=== PATIENT | female | born 1955 | race Caucasian/White ===

== ENCOUNTER 2016-09-25 15:42 | Inpatient (IN) | payer MEDICAID ==
[2016-09-25 15:52] VITALS: BMI 23.7
[2016-09-25] MEDS ORDERED: Oxycodone/Acetaminophen 5/325 mg Tab PO STA (16:58)
[2016-09-25] MEDS ORDERED: Sodium Chloride 0.9% 1,000 ML IV ONE (16:58)
[2016-09-25] MEDS ORDERED: Oxycodone/Acetaminophen 5/325 mg Tab ONE (17:08)
[2016-09-25] MEDS ORDERED: Sodium Chloride 0.9% 1,000 ML ONE (17:09)
--- NOTE | 2016-09-25 17:21 | C.PDOC ---
History Of Present Illness 61 year old patient, with a past medical history of HIV, hypertension, cervical cancer, pancreatitis, peripheral edema, CHF, COPD, chronic kidney disease, depression, and gastritis, presents to the emergency department complaining of lower abdominal pain and flank pain for the past 4 days. Patient states she also has dysuria. She is unable to take her antibiotics because they make her vomit. Patient has a surgical history of partial colectomy, colectomy bag, nephrostomy tube, and hysterectomy. Patient denies fever, shortness of breath, chest pain, numbness, weakness, or incontinence. Patient has nephrostomy tubes due to renal damage from cervical cancer radiation. Patient visits a psychiatrist for depression and numerous medical problems. Time Seen by Provider: 09/25/16 16:45 Chief Complaint (Nursing): Female Genitourinary History Per: Patient History/Exam Limitations: no limitations Onset/Duration Of Symptoms: Days (4) Current Symptoms Are (Timing): Still Present Context: Other Severity: Moderate Pain Scale Rating Of: 4 Location Of Pain/Discomfort: Suprapubic Radiation Of Pain To:: Back Quality Of Discomfort: "Pain" Associated Symptoms: Urinary Symptoms Exacerbating Factors: None Alleviating Factors: None Last Bowel Movement: Today Recent travel outside of the [place]: No Abnormal Vaginal Bleeding: No Past Medical History Reviewed: Historical Data, Nursing Documentation, Vital Signs Vital Signs: Last Vital Signs Temp 98.2 F 09/25/16 15:53 Pulse 98 H 09/25/16 15:53 Resp 17 09/25/16 15:53 BP 135/89 09/25/16 15:53 Pulse Ox 99 09/25/16 17:36 - Medical History PMH: Anemia, Anxiety, Arthritis, Asthma, CHF, COPD, Depression (secondary to cindy HIV from her male partner), Gastritis, HIV ("private"), HTN, Hypercholesterolemia, Hyperlipidemia, Kidney Stones, Malignancy (Cervical (2000) ), Osteoporosis, Pancreatitis, Peripheral Edema, Chronic Kidney Disease (SEE COMMENTS) Surgical History: Cholecystectomy, Endoscopy - [facility] Procedures CHANGE DRAINAGE DEVICE IN KIDNEY, EXTERNAL APPROACH (07/18/16) CYSTOSCOPY NEC (08/07/14) DILATION OF LEFT COMMON ILIAC VEIN, PERCUTANEOUS APPROACH (05/04/16) DILATION OF LEFT FEMORAL VEIN, PERCUTANEOUS APPROACH (05/04/16) INSERTION OF INTRALUM DEV INTO INF VENA CAVA, PERC APPROACH (05/04/16) INSERTION OF TOTALLY IMPLANTABLE VASC ACCESS DEVIC (10/02/03) INTRAVENOUS PYELOGRAM (09/03/14) INTRODUCE OTH THROMBOLYTIC IN PERIPH VEIN, PERC (05/04/16) NEPHROSTOMY (06/26/14) PACKED CELL TRANSFUSION (11/20/14) PLAIN RADIOGRAPHY OF INFERIOR VENA CAVA USING OTHER CONTRAST (05/04/16) REMOV URETERAL DRAIN (09/26/14) REPLACE NEPHROSTOMY TUBE (10/31/14) RETROGRADE PYELOGRAM (01/15/15) URETERAL CATHETERIZATION (01/15/15) VAGINOSCOPY (05/30/14) VULVAR BIOPSY (02/07/14) Family History: States: Unknown Family Hx - Social History Hx Tobacco Use: No Hx Alcohol Use: No Hx Substance Use: No - Immunization History Hx Tetanus Toxoid Vaccination: Yes (2011) Hx Influenza Vaccination: Yes (04/2016) Hx Pneumococcal Vaccination: Yes (2011) Review Of Systems Except As Marked, All Systems Reviewed And Found Negative. Constitutional: Negative for: Fever Cardiovascular: Negative for: Chest Pain Respiratory: Negative for: Shortness of Breath Gastrointestinal: Positive for: Vomiting, Abdominal Pain Genitourinary: Positive for: Dysuria Musculoskeletal: Positive for: Back Pain (flank) Neurological: Negative for: Weakness, Numbness Physical Exam - Physical Exam Appears: Non-toxic, No Acute Distress Skin: Warm, Dry Head: Atraumatic, Normacephalic Eye(s): bilateral: Normal Inspection, PERRL, EOMI Ear(s): Bilateral: Normal Nose: Normal Oral Mucosa: Moist Throat: Normal Neck: Normal ROM, Supple Chest: Symmetrical Cardiovascular: Rhythm Regular Respiratory: Normal Breath Sounds, No Rales, No Rhonchi, No Wheezing Gastrointestinal/Abdominal: Soft, No Tenderness, No Guarding, No Rebound, Other (colectomy bag) Back: Normal Inspection, Other (nephrostomy tube) Extremity: Normal ROM Neurological/Psych: Oriented x3, Normal Speech, Normal Cognition Gait: Steady ED Course And Treatment - Laboratory Results Result Diagrams: 09/25/16 17:29 09/25/16 17:29 O2 Sat by Pulse Oximetry: 99 (RA) Pulse Ox Interpretation: Normal Progress Note: Plan: -Labs. -Percocet, IV fluids. -Reassess and disposition Medical Decision Making Medical Decision Making: Spoke with Dr. Knutson, he requests Dr. Vega for admission. Spoke with Chin Garay Will contact Dr. Vega Disposition Discussed With .: Cece Knutson Doctor Will See Patient In The: Hospital Counseled Patient/Family Regarding: Studies Performed - Disposition Disposition: HOSPITALIZED Disposition Time: 18:13 Condition: GUARDED - Clinical Impression Clinical Impression: UTI (lower urinary tract infection), Pyelonephritis, Other mechanical complication of nephrostomy catheter, sequela - Scribe Statement The provider has reviewed the documentation as recorded by the Tomeka Barahona Provider Attestation: All medical record entries made by the Tomeka were at my direction and personally dictated by me. I have reviewed the chart and agree that the record accurately reflects my personal performance of the history, physical exam, medical decision making, and the department course for this patient. I have also personally directed, reviewed, and agree with the discharge instructions and disposition. Decision To Admit - Pt Status Changed To: Hospital Disposition Of: Inpatient - Admit Certification Admit to Inpatient:: After my assessment, the patient will require hospitalization for at least two midnights. This is because of the severity of symptoms shown, intensity of services needed, and/or the medical risk in this patient being treated as an outpatient. - InPatient: Physician Admission Certification:: pyelonepritis, b/l renal obstruction, nephrostomy tubes, dysuria - . Bed Request Type: Regular Patient Diagnosis: UTI (lower urinary tract infection), Pyelonephritis, Other mechanical complication of nephrostomy catheter, sequela
[2016-09-25 17:31] LABS: BASO % 0.4 % (0.0-2.0); EOS # 0.1 K/uL (0.0-0.7); EOS % 0.9 % (0.0-4.0); HEMATOCRIT 34.1 % (34.0-47.0); LYMPH # 2.1 K/uL (1.0-4.3); LYMPH % 27.1 % (20.0-40.0); MEAN CORPUSCULAR HEMOGLOBIN 25.8 pg (27.0-31.0); MEAN CORPUSCULAR HGB CONC 31.6 g/dL (33.0-37.0); MEAN PLATELET VOLUME 9.6 fL (7.2-11.7); MONO # 0.7 K/uL (0.0-0.8); MONO % 9.5 % (0.0-10.0); RED CELL DISTRIBUTION WIDTH 17.1 % (11.5-14.5); WHITE BLOOD COUNT 7.6 K/uL (4.8-10.8)
[2016-09-25 17:41] LABS: POTASSIUM 4.4 mmol/L (3.6-5.2)
[2016-09-25 17:43] LABS: BILIRUBIN,TOTAL 0.6 mg/dL (0.2-1.3); TOTAL PROTEIN 7.9 g/dL (6.3-8.3)
[2016-09-25 17:44] LABS: CALCIUM 8.9 mg/dl (8.6-10.4); MEAN CELL VOLUME 81.6 fL (81.0-99.0)
[2016-09-25 17:51] LABS: RBC URINE 11383 /hpf (0-3); URINE BACTERIA MOD (<OCC); URINE BILIRUBIN NEGATIVE (NEGATIVE); URINE BLOOD 3+ (NEGATIVE); URINE COLOR RED (YELLOW); URINE GLUCOSE (UA) NORMAL (Normal); URINE KETONE NEGATIVE (NEGATIVE); URINE LEUKOCYTE ESTERASE 3+ Leu/uL (Negative); URINE PROTEIN 2+ mg/dL (NEGATIVE); URINE UROBILINOGEN NORMAL mg/dL (0.2-1.0); WBC CLUMPS MANY /hpf; WBC URINE 26517 /hpf (0-5)
[2016-09-25] MEDS ORDERED: Ciprofloxacin 400mg/200ml D5W 200 ML IVPB STA (18:35)
[2016-09-25] MEDS ORDERED: Ciprofloxacin 400mg/200ml D5W 200 ML IVPB ONE (18:39)
--- NOTE | 2016-09-25 19:55 | CT ---
EXAM: CT Abdomen and Pelvis Without Intravenous Contrast. CLINICAL HISTORY: 61 years old, female; Pain; Abdominal pain; Generalized; Prior surgery; Surgery date: 6+ months; Additional info: B/l neprostomy tubes TECHNIQUE: Axial computed tomography images of the abdomen and pelvis without intravenous contrast. This CT exam was performed using one or more of the following dose reduction techniques: automated exposure control, adjustment of the mA and/or kV according to patient size, and/or use of iterative reconstruction technique. Coronal and sagittal reformatted images were created and reviewed. EXAM DATE/TIME: 09/25/2016 6:11 PM COMPARISON: Prior CT abdomen and pelvis of 04/19/2015 FINDINGS: LOWER THORAX: No infiltrate seen in the lung bases. ABDOMEN: LIVER: No acute abnormality of the liver identified. GALLBLADDER AND BILE DUCTS: Cholecystectomy clips. Stable appearance of marked biliary ductal dilatation, which may be secondary to the postcholecystectomy state. Consider correlation with LFTs for laboratory evidence of biliary obstruction. PANCREAS: No CT evidence of acute pancreatitis. SPLEEN: No acute abnormality of the spleen identified. ADRENALS: No acute abnormality of the adrenal glands identified. KIDNEYS AND URETERS: Bilateral percutaneous nephrostomies in place. Overall appearance of the kidneys and collecting systems is unchanged. There is stable mild, bilateral collecting system fullness, suspicious for mild, bilateral hydroureteronephrosis. Bilateral renal scarring. No obstructing stone seen. STOMACH AND BOWEL: Sigmoid colostomy again seen in the left anterior pelvic wall. Rectal pouch again seen in the pelvis. No acute abnormality of the colon identified. No evidence of bowel obstruction. No acute abnormality of the stomach or duodenum identified. APPENDIX: Normal appendix is not seen, however, there are no significant inflammatory changes visualized in the expected location of the appendix to suggest appendicitis. Recommend clinical correlation. PELVIS: BLADDER: Bladder again appears diffusely thick walled. REPRODUCTIVE: Uterus is surgically absent. SUBPERITONEAL SPACE: Stable appearance of abnormal, crescent shaped soft tissue in the posterior pelvis, in the presacral space, most likely representing chronic post operative and post radiation scarring, given the absence of significant change control coordinator time. ABDOMEN and PELVIS: INTRAPERITONEAL SPACE: No evidence of free intraperitoneal air or fluid. BONES/JOINTS: Bony structures appear demineralized. No acute fractures or other acute bony abnormality visualized. SOFT TISSUES: No acute abnormality of the visualized soft tissues is seen. VASCULATURE: IVC filter in place. No evidence of abdominal aortic aneurysm. LYMPH NODES: No evidence of diffuse lymphadenopathy. IMPRESSION: - Overall, no significant change compared to a prior CT of 04/19/2015. No definite new, acute process identified. - Bilateral percutaneous nephrostomies in place, with stable fullness of the collecting systems bilaterally, suspicious for mild bilateral hydronephrosis. - Thickening of the bladder wall. This is a nonspecific finding, but can be seen with cystitis. - Stable soft tissue in the posterior pelvis, in the presacral space, most likely representing chronic post operative and post radiation scarring, given the absence of significant change control coordinator time. - Biliary ductal dilatation, which may be secondary to the postcholecystectomy state. - See above for remaining findings.
[2016-09-25] MEDS ORDERED: Albuterol HFA 90 mcg/actuation (8 g) INH PRN (22:20)
[2016-09-25] MEDS ORDERED: Oxycodone/Acetaminophen 5/325 mg Tab PO PRN (22:20)
[2016-09-25] MEDS ORDERED: HYDROmorphone 1 mg/ml ISec IVP PRN (22:24)
--- NOTE | 2016-09-25 22:31 | CP.PCM.HP ---
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 Patient states she has chronic microcytic anemia and Gastritis managed by her News Writer, Dr. Wong for which she takes omeprazole. She received Intravenous Iron and blood transfusions, last given 2013. she is now with recurent urine infection, had antibiotics as out pt, also an admission for DVT, thrombectomy from femoral vein, then eliquis. referred by "Dr Knutson"for admission , IV antibiotics and exchange nephrostomy tubes Present on Admission - Present on Admission Any Indicators Present on Admission: No Review of Systems - Constitutional Constitutional: Anorexia, Weight Loss, Weakness - EENT Eyes: absent: Discharge, Photophobia Ears: absent: Ear Discharge Nose/Mouth/Throat: absent: Epistaxis, Nasal Congestion - Cardiovascular Cardiovascular: absent: Acrocyanosis, Chest Pain, Diaphoresis, Palpitations, Syncope - Respiratory Respiratory: absent: Cough, Dyspnea, Hemoptysis - Gastrointestinal Gastrointestinal: Abdominal Pain, Nausea. absent: Hematemesis, Hematochezia, Vomiting - Genitourinary Genitourinary: Change in Urinary Stream. absent: Urinary Incontinence Past Patient History - Infectious Disease Hx of Infectious Diseases: None - Past Medical History & Family History Past Medical History?: Yes - Past Social History Smoking Status: Former Smoker - CARDIAC Hx Congestive Heart Failure: Yes Hx Hypercholesterolemia: Yes Hx Hypertension: Yes Hx Peripheral Edema: Yes - PULMONARY Hx Asthma: Yes Hx Chronic Obstructive Pulmonary Disease (COPD): Yes - NEUROLOGICAL Hx Neurological Disorder: Yes (SEE COMMENT) Hx Syncope: Yes (10 yrs unknown reason) Other/Comment: HEADACHES - HEENT Hx HEENT Problems: Yes (SEE COMMENT) Hx Cataracts: Yes (BILATERAL) - RENAL Hx Chronic Kidney Disease: Yes (SEE COMMENTS) Hx Kidney Stones: Yes - ENDOCRINE/METABOLIC Hx Endocrine Disorders: No - HEMATOLOGICAL/ONCOLOGICAL Hx Anemia: Yes Hx Human Immunodeficiency Virus (HIV): Yes ("private") - INTEGUMENTARY Hx Dermatological Problems: Yes (SEE COMMENT) Other/Comment: Colostomy, Nephrostomy - MUSCULOSKELETAL/RHEUMATOLOGICAL Hx Arthritis: Yes Hx Osteoporosis: Yes - GASTROINTESTINAL Hx Gastritis: Yes Hx Pancreatitis: Yes - GENITOURINARY/GYNECOLOGICAL Hx Genitourinary Disorders: Yes Hx Cervical Cancer: Yes Hx Hematuria: Yes Hx Urinary Tract Infection: Yes Other/Comment: ureteral stent in both kidneys - changed Q3 months. bilateral nephrostomy tubes(2013) last changed 05/27 - PSYCHIATRIC Hx Anxiety: Yes Hx Depression: Yes (secondary to cindy HIV from her male partner) Hx Substance Use: No - SURGICAL HISTORY Hx Cholecystectomy: Yes - ANESTHESIA Hx Anesthesia: Yes Hx Anesthesia Reactions: Yes (Hard to wake up even with sedation) Hx Malignant Hyperthermia: Yes (prev surgery, rt for uterine ca) Meds Allergies/Adverse Reactions: Allergies Allergy/AdvReac Type Severity Reaction Status Date / Time sulfamethoxazole Allergy Intermediate ITCHING Verified 09/25/16 15:52 [From Bactrim] aloe vera Allergy ITCHING Verified 09/25/16 15:52 Sulfa (Sulfonamide Allergy ITCHING Verified 09/25/16 15:52 Antibiotics) Physical Exam - Constitutional Appears: Non-toxic - Head Exam Head Exam: ATRAUMATIC - Eye Exam Eye Exam: EOMI - ENT Exam ENT Exam: Mucous Membranes Moist - Neck Exam Neck exam: Negative for: Lymphadenopathy, Thyromegaly - Respiratory Exam Respiratory Exam: Clear to Auscultation Bilateral. absent: Rales - Cardiovascular Exam Cardiovascular Exam: REGULAR RHYTHM - GI/Abdominal Exam GI & Abdominal Exam: Normal Bowel Sounds. absent: Organomegaly - Rectal Exam Rectal Exam: Deferred - Extremities Exam Extremities exam: Positive for: normal inspection. Negative for: calf tenderness - Neurological Exam Neurological exam: Alert, Oriented x3 - Psychiatric Exam Psychiatric exam: Normal Mood - Skin Skin Exam: Dry Results - Vital Signs Recent Vital Signs: Last Vital Signs Temp 98.1 F 09/25/16 21:46 Pulse 78 09/25/16 21:46 Resp 16 09/25/16 21:46 BP 149/79 09/25/16 21:46 Pulse Ox 99 09/25/16 21:46 - Labs Result Diagrams: 09/26/16 07:36 09/26/16 07:36 Assessment & Plan (1) Other mechanical complication of nephrostomy catheter, sequela Status: Acute (2) Hydronephrosis of left kidney Status: Chronic (3) Hydronephrosis of right kidney Status: Chronic (4) Intractable pain Status: Acute (5) Pyelonephritis, acute Status: Acute (6) AIDS Status: Chronic (7) History of depression Status: Chronic (8) History of uterine cancer Status: Chronic (9) Renal insufficiency Status: Chronic Decision To Admit - Pt Status Changed To: Hospital Disposition Of: Inpatient - Admit Certification Admit to Inpatient:: After my assessment, the patient will require hospitalization for at least two midnights. This is because of the severity of symptoms shown, intensity of services needed, and/or the medical risk in this patient being treated as an outpatient. - InPatient: Physician Admission Certification:: yes - . Bed Request Type: Regular
[2016-09-25] MEDS: Simethicone 80 mg Chewtab PO SCH (22:59)
--- NOTE | 2016-09-25 23:58 | CP.PCM.CON ---
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 Patient was recently hospitalized [facility] from 07/18/16 to 07/24/16 with complicated UTI and had bilateral nephrostomy tubes changed by Dr. Knutson on 07/18. Patient also has history of DVT, thrombectomy from femoral vein and presently on eliquis. Patient now comes in complaining off bilateral flank pains,back pain and turbid foul-smelling urine. Patient came to the ER and was advised admission as per -by urologist for change off nephrostomy tubes. Patient also has chronic microcytic anemia and gastritis. Infectious disease consultation requested by ER physician for IV antibiotics for her complicated UTI. Patient has history off MRSA, Enterococcus faecalis and even pseudomonas aeruginosa from nephrostomy tubes sensitive to Cipro, Merrem and imipenem. Patient is presently on TIVICAY. Norvir, Prezista HAART therapy and is very compliant with her medications. Her last viral load was undetectable and his CD4 count WAS MORE THAN 500. PMHx: see HPI. Nephrostomy and colostomy were done due to damages from chemoradiation for cervical CA. Pt visited PMD for routine HIV follow up on 2015 and was told viral count undetectable. CD4 145 on 08/19/14 per record. PSHx: Cervical CA resection 2000, colostomy bag 2009. FMHx: both parents from [place]. Sister and brother had PA. Social: former smoker, 5 cigarettes to 1 pack a day for 10 years, stopped 2011. Denied ETOH or drugs use. Lives alone, unemployeed. PMD: Dr. Rojas Nichole Review of Systems - Constitutional Constitutional: Fatigue. absent: Chills, Fever - EENT Eyes: absent: Change in Vision, Floaters Nose/Mouth/Throat: absent: Mouth Lesions, Odynophagia - Cardiovascular Cardiovascular: absent: Chest Pain, Dyspnea - Respiratory Respiratory: absent: Cough, Dyspnea, Hemoptysis - Gastrointestinal Gastrointestinal: Abdominal Pain (bilateral flank pains.). absent: Nausea, Vomiting - Genitourinary Genitourinary: Dysuria, Pyuria, Hx /Renal Surgery - Neurological Neurological: absent: Headaches - Hematologic/Lymphatic Hematologic: As Per HPI. absent: Easy Bleeding, Easy Bruising Past Patient History - Infectious Disease Hx of Infectious Diseases: None - Past Medical History & Family History Past Medical History?: Yes - Past Social History Smoking Status: Former Smoker - CARDIAC Hx Congestive Heart Failure: Yes Hx Hypercholesterolemia: Yes Hx Hypertension: Yes Hx Peripheral Edema: Yes - PULMONARY Hx Asthma: Yes Hx Chronic Obstructive Pulmonary Disease (COPD): Yes - NEUROLOGICAL Hx Neurological Disorder: Yes (SEE COMMENT) Hx Syncope: Yes (10 yrs unknown reason) Other/Comment: HEADACHES - HEENT Hx HEENT Problems: Yes (SEE COMMENT) Hx Cataracts: Yes (BILATERAL) - RENAL Hx Chronic Kidney Disease: Yes (SEE COMMENTS) Hx Kidney Stones: Yes - ENDOCRINE/METABOLIC Hx Endocrine Disorders: No - HEMATOLOGICAL/ONCOLOGICAL Hx Anemia: Yes Hx Human Immunodeficiency Virus (HIV): Yes ("private") - INTEGUMENTARY Hx Dermatological Problems: Yes (SEE COMMENT) Other/Comment: Colostomy, Nephrostomy - MUSCULOSKELETAL/RHEUMATOLOGICAL Hx Arthritis: Yes Hx Osteoporosis: Yes - GASTROINTESTINAL Hx Gastritis: Yes Hx Pancreatitis: Yes - GENITOURINARY/GYNECOLOGICAL Hx Genitourinary Disorders: Yes Hx Cervical Cancer: Yes Hx Hematuria: Yes Hx Urinary Tract Infection: Yes Other/Comment: ureteral stent in both kidneys - changed Q3 months. bilateral nephrostomy tubes(2013) last changed 05/27 - PSYCHIATRIC Hx Anxiety: Yes Hx Depression: Yes (secondary to cindy HIV from her male partner) Hx Substance Use: No - SURGICAL HISTORY Hx Cholecystectomy: Yes - ANESTHESIA Hx Anesthesia: Yes Hx Anesthesia Reactions: Yes (Hard to wake up even with sedation) Hx Malignant Hyperthermia: Yes (prev surgery, rt for uterine ca) Meds Allergies/Adverse Reactions: Allergies Allergy/AdvReac Type Severity Reaction Status Date / Time sulfamethoxazole Allergy Intermediate ITCHING Verified 09/25/16 15:52 [From Bactrim] aloe vera Allergy ITCHING Verified 09/25/16 15:52 Sulfa (Sulfonamide Allergy ITCHING Verified 09/25/16 15:52 Antibiotics) - Medications Medications: Current Medications Acetaminophen (Tylenol 325mg Tab) 650 mg PO Q6 PRN PRN Reason: Fever >100.4 F Albuterol (Ventolin Hfa 90 Mcg/Actuation (8 G)) 2 puff INH Q4 PRN PRN Reason: Shortness of Breath Apixaban (Eliquis) 5 mg PO BID [facility] Last Admin: 09/25/16 22:59 Dose: 5 mg Darunavir (Prezista) 800 mg PO DAILY [facility] Docusate Sodium (Colace) 100 mg PO BID [facility] Dolutegravir Sodium (Tivicay) 50 mg PO DAILY [facility] Enoxaparin Sodium (Lovenox) 40 mg SC DAILY [facility] Famciclovir (Famvir) 500 mg PO DAILY [facility] Home Med (Fexofenadine Hcl [Fexofenadine Hcl]) 60 mg PO DAILY [facility] Hydromorphone HCl (Dilaudid) 1 mg IVP Q6H PRN PRN Reason: Pain, severe (8-10) Ciprofloxacin (Cipro 200mg/100ml D5w) 100 mls @ 67 mls/hr IVPB Q12H [facility] Sodium Chloride (Sodium Chloride 0.9%) 1,000 mls @ 100 mls/hr IV .Q10H [facility] Losartan Potassium (Cozaar) 100 mg PO DAILY [facility] Metoprolol Tartrate (Lopressor) 100 mg PO HS [facility] Montelukast Sodium (Singulair) 10 mg PO DAILY [facility] Ondansetron HCl (Zofran Inj) 4 mg IVP Q6 PRN PRN Reason: Nausea/Vomiting Oxycodone/Acetaminophen (Percocet 5/325 Mg Tab) 1 tab PO Q4H PRN PRN Reason: Pain, moderate (4-7) Stop: 09/28/16 22:21 Pantoprazole Sodium (Protonix Ec Tab) 40 mg PO DAILY [facility] Ritonavir (Norvir) 100 mg PO DAILY [facility] Simethicone (Mylicon Chew Tab) 80 mg PO BID [facility] Last Admin: 09/25/16 22:59 Dose: 80 mg Temazepam (Restoril) 15 mg PO HS [facility] Last Admin: 09/25/16 23:12 Dose: 15 mg Physical Exam - Constitutional Appears: No Acute Distress - Head Exam Head Exam: NORMAL INSPECTION - Eye Exam Eye Exam: PERRL - ENT Exam ENT Exam: Normal Oropharynx - Neck Exam Neck exam: Positive for: Normal Inspection - Respiratory Exam Respiratory Exam: NORMAL BREATHING PATTERN - Cardiovascular Exam Cardiovascular Exam: REGULAR RHYTHM, +S1, +S2 - GI/Abdominal Exam GI & Abdominal Exam: Hypoactive Bowel Sounds, Soft, Tenderness (bilateral flanks ). absent: Guarding, Mass Additional comments: BILATERAL NEPHROSTOMY TUBES IN PLACE. - Extremities Exam Extremities exam: Positive for: pedal pulses present. Negative for: calf tenderness, pedal edema - Back Exam Back exam: CVA tenderness (L), CVA tenderness (R) - Neurological Exam Neurological exam: Alert, CN II-XII Intact, Motor Sensory Deficit, Oriented x3, Reflexes Normal - Psychiatric Exam Psychiatric exam: Normal Mood - Skin Skin Exam: Normal Color, Warm Results - Vital Signs Recent Vital Signs: Last Vital Signs Temp 98.1 F 09/25/16 21:46 Pulse 78 09/25/16 21:46 Resp 16 09/25/16 21:46 BP 149/79 09/25/16 21:46 Pulse Ox 99 09/25/16 21:46 - Labs Result Diagrams: 09/26/16 07:36 09/26/16 07:36 - Imaging and Cardiology CT scan - abdomen Status: Pending Assessment & Plan (1) Abdominal pain Assessment and Plan: CT of the abdomen and pelvis without by mouth or IV contrast performed. Results are pending. We will follow reports. Status: Acute (2) Complicated urinary tract infection Assessment and Plan: pancultures UA urine culture. Patient for CT of the abdomen and pelvis without by mouth or IV contrast- pending report. Start Cipro 400 mg loading dose 09/25/16 Follow-up BY Cipro 200 mg IV piggybag every 12 hourly. IV stat dose off Tygacil 100 mg IV piggyback 1 dose. 09/25/16 Case discussed with the ER physician. EVALUATION IN PROGRESS. Status: Acute (3) Creatinine elevation Assessment and Plan: bun 25/CREATININE 1.5. IV FLUIDS PER ATTENDING. REPEAT BMP IN AM. Status: Acute (4) Cancer of cervix Status: Chronic (5) Colostomy in place Assessment and Plan: LEFT COLOSTOMY IN PLACE AND WORKING. Status: Chronic (6) HIV (human immunodeficiency virus infection) Assessment and Plan: CONTINUE HAART THERAPY BEFORE. Status: Chronic (7) Deep venous thrombosis of lower extremity Assessment and Plan: hx of ivc filter. Also patient on ELAQUIS PER ASSISTANT PRODUCTION EDITOR. Status: Acute
[2016-09-26] MEDS: Sodium Chloride 0.9% 1,000 ML IV SCH ×3 (03:45→17:36)
[2016-09-26] MEDS: Ciprofloxacin 200mg/100ml D5W 100 ML IVPB SCH ×2 (05:37→17:35)
[2016-09-26 08:06] LABS: POTASSIUM 4.7 mmol/L (3.6-5.2)
[2016-09-26 08:09] LABS: BILIRUBIN,DIRECT 0.3 mg/dL (0.0-0.4); BILIRUBIN,TOTAL 0.3 mg/dL (0.2-1.3); CALCIUM 8.2 mg/dl (8.6-10.4); TOTAL PROTEIN 6.6 g/dL (6.3-8.3)
[2016-09-26 08:20] LABS: BASO % 0.5 % (0.0-2.0); EOS # 0.1 K/uL (0.0-0.7); EOS % 1.8 % (0.0-4.0); HEMATOCRIT 32.2 % (34.0-47.0); LYMPH # 1.8 K/uL (1.0-4.3); LYMPH % 31.6 % (20.0-40.0); MEAN CELL VOLUME 82.9 fL (81.0-99.0); MEAN CORPUSCULAR HEMOGLOBIN 26.6 pg (27.0-31.0); MEAN CORPUSCULAR HGB CONC 32.1 g/dL (33.0-37.0); MEAN PLATELET VOLUME 9.9 fL (7.2-11.7); MONO # 0.6 K/uL (0.0-0.8); MONO % 10.9 % (0.0-10.0); NRBC % 0.1 % (0.0-2.0); RED CELL DISTRIBUTION WIDTH 17.3 % (11.5-14.5); WHITE BLOOD COUNT 5.8 K/uL (4.8-10.8)
[2016-09-26] MEDS: Pantoprazole 40 mg EC Tab PO SCH (09:45)
[2016-09-26] MEDS: Simethicone 80 mg Chewtab PO SCH ×2 (09:46→17:40)
[2016-09-26] MEDS ORDERED: Enoxaparin 40 mg Syringe SC SCH (10:00)
--- NOTE | 2016-09-26 12:11 | CP.PCM.PN ---
Subjective - Date & Time of Evaluation Date of Evaluation: 09/26/16 Time of Evaluation: 12:00 - Subjective Subjective: Seen by ID, on IV unlikely anti- biotic, stable vitals considering change the nephrostomy tubes Objective - Vital Signs/Intake and Output Vital Signs (last 24 hours): Temp Pulse Resp BP Pulse Ox 97.9 F 79 20 116/71 97 09/26/16 09:12 09/26/16 09:12 09/26/16 09:12 09/26/16 09:12 09/26/16 09:12 Intake and Output: 09/26/16 09/26/16 06:59 18:59 Intake Total 800 Output Total 200 Balance 600 - Medications Medications: Current Medications Acetaminophen (Tylenol 325mg Tab) 650 mg PO Q6 PRN PRN Reason: Fever >100.4 F Albuterol (Ventolin Hfa 90 Mcg/Actuation (8 G)) 2 puff INH Q4 PRN PRN Reason: Shortness of Breath Apixaban (Eliquis) 5 mg PO BID [facility] Last Admin: 09/26/16 09:45 Dose: 5 mg Darunavir (Prezista) 800 mg PO DAILY [facility] Last Admin: 09/26/16 11:27 Dose: 800 mg Docusate Sodium (Colace) 100 mg PO BID [facility] Last Admin: 09/26/16 09:49 Dose: Not Given Dolutegravir Sodium (Tivicay) 50 mg PO DAILY [facility] Last Admin: 09/26/16 09:45 Dose: 50 mg Famciclovir (Famvir) 500 mg PO DAILY [facility] Last Admin: 09/26/16 09:45 Dose: 500 mg Hydromorphone HCl (Dilaudid) 1 mg IVP Q6H PRN PRN Reason: Pain, severe (8-10) Ciprofloxacin (Cipro 200mg/100ml D5w) 100 mls @ 67 mls/hr IVPB Q12H [facility] Last Admin: 09/26/16 05:37 Dose: 67 mls/hr Sodium Chloride (Sodium Chloride 0.9%) 1,000 mls @ 100 mls/hr IV .Q10H [facility] Last Admin: 09/26/16 03:45 Dose: 100 mls/hr Loratadine (Claritin) 10 mg PO DAILY [facility] Last Admin: 09/26/16 09:45 Dose: 10 mg Losartan Potassium (Cozaar) 100 mg PO DAILY [facility] Last Admin: 09/26/16 09:45 Dose: 100 mg Metoprolol Tartrate (Lopressor) 100 mg PO [facility] Montelukast Sodium (Singulair) 10 mg PO [facility] Ondansetron HCl (Zofran Inj) 4 mg IVP Q6 PRN PRN Reason: Nausea/Vomiting Oxycodone/Acetaminophen (Percocet 5/325 Mg Tab) 1 tab PO Q4H PRN PRN Reason: Pain, moderate (4-7) Stop: 09/28/16 22:21 Pantoprazole Sodium (Protonix Ec Tab) 40 mg PO DAILY [facility] Last Admin: 09/26/16 09:45 Dose: 40 mg Ritonavir (Norvir) 100 mg PO DAILY [facility] Last Admin: 09/26/16 09:45 Dose: 100 mg Simethicone (Mylicon Chew Tab) 80 mg PO BID [facility] Last Admin: 09/26/16 09:46 Dose: 80 mg Temazepam (Restoril) 15 mg PO [facility] Last Admin: 09/25/16 23:12 Dose: 15 mg - Labs Labs: 09/26/16 07:36 09/26/16 07:36 - Constitutional Appears: Non-toxic - Head Exam Head Exam: ATRAUMATIC - Eye Exam Eye Exam: EOMI - ENT Exam ENT Exam: Mucous Membranes Moist - Neck Exam Neck Exam: absent: Lymphadenopathy, Thyromegaly - Respiratory Exam Respiratory Exam: Clear to Ausculation Bilateral. absent: Rhonchi - Cardiovascular Exam Cardiovascular Exam: REGULAR RHYTHM - GI/Abdominal Exam GI & Abdominal Exam: Tenderness, Normal Bowel Sounds. absent: Organomegaly Additional comments: Bilateral nephrostomy tubes - Rectal Exam Rectal Exam: Deferred - Extremities Exam Extremities Exam: Normal Capillary Refill. absent: Calf Tenderness - Neurological Exam Neurological Exam: Alert, Oriented x3 - Psychiatric Exam Psychiatric exam: Depressed, Normal Mood - Skin Skin Exam: Dry Assessment and Plan (1) Other mechanical complication of nephrostomy catheter, sequela Status: Acute (2) Hydronephrosis of left kidney Status: Chronic (3) Hydronephrosis of right kidney Status: Chronic (4) Intractable pain Status: Acute (5) Pyelonephritis, acute Status: Acute (6) AIDS Status: Chronic (7) History of depression Status: Chronic (8) History of uterine cancer Status: Chronic (9) Renal insufficiency Status: Chronic
--- NOTE | 2016-09-26 20:11 | CP.PCM.PN ---
Subjective - Date & Time of Evaluation Date of Evaluation: 09/26/16 Time of Evaluation: 20:41 - Subjective Subjective: CHIEF COMPLAINTS TODAY : afebrile, Complains of bilateral flank and lower abdominal pains. c/o dysuria and foul-smelling urine. ROS. HEENT : N. Resp : No SOB wheezing, cough Cardio : No CP, PND orthopnea GI : +VE ABDOMINAL PAIN,AND FLANK PAIN. NO NAUSEA OR VOMITING. [employer]ER : No headache , focal deficit. Musculoskel : N Ext. : Pedal pulses intact, no edema or calf pain Derm : N Psych : N. PE. Pt. is alert awake in no distress. V.S As noted in the chart Head ,ear nose,throat and eyes : Normal. Neck : Supple with normal carotids. Lungs: Clear air entry. Heart : S1 & S2 normal . . No murmur. S4 + Abd : Soft ,MILD TENDERNESS BOTH FLANKS AND LOWER ABDOMEN, with normal bowel sounds. Neuro : Moves all ext. with no localized deficit. Ext : No edema with intact pulses. Neg. calf tenderness Derm : No rashes or decubitus ulcer. Radiology/Labs . LABS REVIEWED. CT OF THE ABDOMEN AND PELVIS WITHOUT BY MOUTH OR iv CONTRAST NO GROSS CHANGES, BILATERAL HYDRONEPHROSIS, THICKENING OF THE BLADDER WALL SUSPICIOUS FOR CYSTITIS. urine cultures +ve gram-negative jaret/gram-negative rods #2 pending Asssessment : -ABDOMINAL PAIN -COMPLICATED UTI/PYELONEPHRITIS -BILATERAL HYDRONEPHROSIS S/P BILATERAL NT IN PLACE. -SEE OF THE CERVIX S/P ILEOSTOMY.. -ACQUIRED IMMUNE DEFICIENCY SYNDROME.. - PRERENAL AZOTEMIA. -HX OF DVT/S/P IVC FILTER/AND ELAQUIS. - Plan : -on Cipro 400 mg loading dose 09/25/16 Follow-up BY Cipro 200 mg IV piggybag every 12 hourly. -IV stat dose off Tygacil 100 mg IV piggyback 1 dose. 09/25/16 follow-up with Tygacil 50 mg every 12 hourly. -Repeat UA, urine culture clean catch today. - evaluation pending. Patient states stents are changed every 3 months, last change was in July 2016. -IV fluids as per Dr. Vega PMD/medical authorization specialist.- -Follow up renal functions closely. Objective - Vital Signs/Intake and Output Vital Signs (last 24 hours): Temp Pulse Resp BP Pulse Ox 98.0 F 81 20 125/74 97 09/26/16 16:00 09/26/16 16:00 09/26/16 16:00 09/26/16 16:00 09/26/16 16:00 Intake and Output: 09/26/16 09/27/16 18:59 06:59 Intake Total 1200 Output Total 1000 Balance 200 - Medications Medications: Current Medications Acetaminophen (Tylenol 325mg Tab) 650 mg PO Q6 PRN PRN Reason: Fever >100.4 F Albuterol (Ventolin Hfa 90 Mcg/Actuation (8 G)) 2 puff INH Q4 PRN PRN Reason: Shortness of Breath Apixaban (Eliquis) 5 mg PO BID [facility] Last Admin: 09/26/16 17:35 Dose: 5 mg Darunavir (Prezista) 800 mg PO DAILY [facility] Last Admin: 09/26/16 11:27 Dose: 800 mg Docusate Sodium (Colace) 100 mg PO BID [facility] Last Admin: 09/26/16 17:37 Dose: Not Given Dolutegravir Sodium (Tivicay) 50 mg PO DAILY [facility] Last Admin: 09/26/16 09:45 Dose: 50 mg Famciclovir (Famvir) 500 mg PO DAILY [facility] Last Admin: 09/26/16 09:45 Dose: 500 mg Hydromorphone HCl (Dilaudid) 1 mg IVP Q6H PRN PRN Reason: Pain, severe (8-10) Ciprofloxacin (Cipro 200mg/100ml D5w) 100 mls @ 67 mls/hr IVPB Q12H [facility] Last Admin: 09/26/16 17:35 Dose: 67 mls/hr Sodium Chloride (Sodium Chloride 0.9%) 1,000 mls @ 100 mls/hr IV .Q10H [facility] Last Admin: 09/26/16 17:36 Dose: Not Given Loratadine (Claritin) 10 mg PO DAILY [facility] Last Admin: 09/26/16 09:45 Dose: 10 mg Losartan Potassium (Cozaar) 100 mg PO DAILY [facility] Last Admin: 09/26/16 09:45 Dose: 100 mg Metoprolol Tartrate (Lopressor) 100 mg PO [facility] Montelukast Sodium (Singulair) 10 mg PO [facility] Ondansetron HCl (Zofran Inj) 4 mg IVP Q6 PRN PRN Reason: Nausea/Vomiting Last Admin: 09/26/16 17:40 Dose: 4 mg Oxycodone/Acetaminophen (Percocet 5/325 Mg Tab) 1 tab PO Q4H PRN PRN Reason: Pain, moderate (4-7) Stop: 09/28/16 22:21 Pantoprazole Sodium (Protonix Ec Tab) 40 mg PO DAILY [facility] Last Admin: 09/26/16 09:45 Dose: 40 mg Ritonavir (Norvir) 100 mg PO DAILY [facility] Last Admin: 09/26/16 09:45 Dose: 100 mg Simethicone (Mylicon Chew Tab) 80 mg PO BID [facility] Last Admin: 09/26/16 17:40 Dose: 80 mg Temazepam (Restoril) 15 mg PO [facility] Last Admin: 09/25/16 23:12 Dose: 15 mg - Labs Labs: 09/26/16 07:36 09/26/16 07:36 Assessment and Plan (1) Abdominal pain Status: Acute (2) Complicated urinary tract infection Status: Acute (3) Creatinine elevation Status: Acute (4) Cancer of cervix Status: Chronic (5) Colostomy in place Status: Chronic (6) HIV (human immunodeficiency virus infection) Status: Chronic (7) Deep venous thrombosis of lower extremity Status: Acute
[2016-09-26] MEDS: Tigecycline 50 MG in Dextrose 5% In Water 100 ML IVPB SCH (21:23)
[2016-09-26 22:42] LABS: RBC URINE 3277 /hpf (0-3); URINE BACTERIA MOD (<OCC); URINE BILIRUBIN NEGATIVE (NEGATIVE); URINE BLOOD 3+ (NEGATIVE); URINE COLOR Red (YELLOW); URINE GLUCOSE (UA) NORMAL (Normal); URINE KETONE NEGATIVE (NEGATIVE); URINE LEUKOCYTE ESTERASE 3+ Leu/uL (Negative); URINE PROTEIN 2+ mg/dL (NEGATIVE); URINE UROBILINOGEN NORMAL mg/dL (0.2-1.0); WBC CLUMPS MANY /hpf; WBC URINE 1378 /hpf (0-5)
[2016-09-27] MEDS: Sodium Chloride 0.9% 1,000 ML IV SCH ×4 (04:30→14:10)
[2016-09-27] MEDS: Ciprofloxacin 200mg/100ml D5W 100 ML IVPB SCH ×2 (06:27→17:44)
[2016-09-27] MEDS: Pantoprazole 40 mg EC Tab PO SCH (09:58)
[2016-09-27] MEDS: Simethicone 80 mg Chewtab PO SCH ×2 (09:58→17:43)
[2016-09-27] MEDS: Tigecycline 50 MG in Dextrose 5% In Water 100 ML IVPB SCH ×2 (10:18→21:10)
--- NOTE | 2016-09-27 13:56 | CP.PCM.PN ---
Subjective - Date & Time of Evaluation Date of Evaluation: 09/27/16 Time of Evaluation: 13:55 - Subjective Subjective: CHIEF COMPLAINTS TODAY : afebrile, Complains of bilateral flank and lower abdominal pains. c/o NAUSEA BUT NO VOMITING. SEEN BY - FOR CYSTOSCOPY IN A.M. PER PATIENT. ROS. HEENT : N. Resp : No SOB wheezing, cough Cardio : No CP, PND orthopnea GI : +VE ABDOMINAL PAIN,AND FLANK PAIN. NO NAUSEA OR VOMITING. KAI WHAKARURUHAU : No headache , focal deficit. Musculoskel : N Ext. : Pedal pulses intact, no edema or calf pain Derm : N Psych : N. PE. Pt. is alert awake in no distress. V.S As noted in the chart Head ,ear nose,throat and eyes : Normal. Neck : Supple with normal carotids. Lungs: Clear air entry. Heart : S1 & S2 normal . . No murmur. S4 + Abd : Soft ,MILD TENDERNESS BOTH FLANKS AND LOWER ABDOMEN, with normal bowel sounds. Neuro : Moves all ext. with no localized deficit. Ext : No edema with intact pulses. Neg. calf tenderness Derm : No rashes or decubitus ulcer. Radiology/Labs . LABS REVIEWED. CT OF THE ABDOMEN AND PELVIS WITHOUT BY MOUTH OR iv CONTRAST NO GROSS CHANGES, BILATERAL HYDRONEPHROSIS, THICKENING OF THE BLADDER WALL SUSPICIOUS FOR CYSTITIS. urine cultures +ve gram-negative jaret/gram-negative rods #2 pending Asssessment : -ABDOMINAL PAIN -COMPLICATED UTI/PYELONEPHRITIS -BILATERAL HYDRONEPHROSIS S/P BILATERAL NT IN PLACE. -SEE OF THE CERVIX S/P ILEOSTOMY.. -ACQUIRED IMMUNE DEFICIENCY SYNDROME.. - PRERENAL AZOTEMIA. -HX OF DVT/S/P IVC FILTER/AND ELAQUIS. - Plan : -on Cipro 400 mg loading dose 09/25/16 Follow-up BY Cipro 200 mg IV piggybag every 12 hourly. -IV stat dose off Tygacil 100 mg IV piggyback 1 dose. 09/25/16 follow-up with Tygacil 50 mg every 12 hourly. -Repeat UA, urine culture -repeat [id number] 09/26 -FOLLOW-UP CULTURES TO ADJUST ANTIBIOTICS - -FOR CYSTOSCOPY IN A.M. -ZOFRAN 4 MG WHEN NECESSARY EVERY 6 HOURLY FOR NAUSEA PER pmd.- Objective - Vital Signs/Intake and Output Vital Signs (last 24 hours): Temp Pulse Resp BP Pulse Ox 98 F 70 20 156/82 H 97 09/27/16 07:00 09/27/16 07:00 09/27/16 07:00 09/27/16 07:00 09/27/16 07:00 Intake and Output: 09/27/16 09/27/16 06:59 18:59 Intake Total 1000 Output Total 500 Balance 500 - Medications Medications: Current Medications Acetaminophen (Tylenol 325mg Tab) 650 mg PO Q6 PRN PRN Reason: Fever >100.4 F Albuterol (Ventolin Hfa 90 Mcg/Actuation (8 G)) 2 puff INH Q4 PRN PRN Reason: Shortness of Breath Apixaban (Eliquis) 5 mg PO BID [facility] Last Admin: 09/27/16 09:58 Dose: 5 mg Darunavir (Prezista) 800 mg PO DAILY [facility] Last Admin: 09/27/16 09:58 Dose: 800 mg Docusate Sodium (Colace) 100 mg PO BID [facility] Last Admin: 09/27/16 09:58 Dose: 100 mg Dolutegravir Sodium (Tivicay) 50 mg PO DAILY [facility] Last Admin: 09/27/16 09:58 Dose: 50 mg Famciclovir (Famvir) 500 mg PO DAILY [facility] Last Admin: 09/27/16 09:58 Dose: 500 mg Hydromorphone HCl (Dilaudid) 1 mg IVP Q6H PRN PRN Reason: Pain, severe (8-10) Ciprofloxacin (Cipro 200mg/100ml D5w) 100 mls @ 67 mls/hr IVPB Q12H [facility] Last Admin: 09/27/16 06:27 Dose: 67 mls/hr Sodium Chloride (Sodium Chloride 0.9%) 1,000 mls @ 100 mls/hr IV .Q10H [facility] Last Admin: 09/27/16 07:43 Dose: Not Given Tigecycline 50 mg/ Dextrose 100 mls @ 100 mls/hr IVPB Q12H [facility] Last Admin: 09/27/16 10:18 Dose: 100 mls/hr Loratadine (Claritin) 10 mg PO DAILY [facility] Last Admin: 09/27/16 09:58 Dose: 10 mg Losartan Potassium (Cozaar) 100 mg PO DAILY [facility] Last Admin: 09/27/16 09:58 Dose: 100 mg Metoprolol Tartrate (Lopressor) 100 mg PO HS [facility] Last Admin: 09/26/16 21:23 Dose: 100 mg Montelukast Sodium (Singulair) 10 mg PO HS [facility] Last Admin: 09/26/16 21:23 Dose: 10 mg Ondansetron HCl (Zofran Inj) 4 mg IVP Q6 PRN PRN Reason: Nausea/Vomiting Last Admin: 09/27/16 09:59 Dose: 4 mg Oxycodone/Acetaminophen (Percocet 5/325 Mg Tab) 1 tab PO Q4H PRN PRN Reason: Pain, moderate (4-7) Stop: 09/28/16 22:21 Pantoprazole Sodium (Protonix Ec Tab) 40 mg PO DAILY [facility] Last Admin: 09/27/16 09:58 Dose: 40 mg Ritonavir (Norvir) 100 mg PO DAILY [facility] Last Admin: 09/27/16 09:58 Dose: 100 mg Simethicone (Mylicon Chew Tab) 80 mg PO BID [facility] Last Admin: 09/27/16 09:58 Dose: 80 mg Temazepam (Restoril) 15 mg PO [facility] Last Admin: 09/26/16 21:24 Dose: Not Given - Labs Labs: 09/26/16 07:36 09/26/16 07:36 Assessment and Plan (1) Abdominal pain Status: Acute (2) Complicated urinary tract infection Status: Acute (3) Creatinine elevation Status: Acute (4) Cancer of cervix Status: Chronic (5) Colostomy in place Status: Chronic (6) HIV (human immunodeficiency virus infection) Status: Chronic (7) Deep venous thrombosis of lower extremity Status: Acute
--- NOTE | 2016-09-27 17:04 | CP.PCM.PN ---
Subjective - Date & Time of Evaluation Date of Evaluation: 09/27/16 Time of Evaluation: 13:00 - Subjective Subjective: on treatment for sepsis, f/u with ID observe BP, for cystoscopy Objective - Vital Signs/Intake and Output Vital Signs (last 24 hours): Temp Pulse Resp BP Pulse Ox 98.2 F 71 18 154/88 H 100 09/27/16 15:16 09/27/16 15:16 09/27/16 15:16 09/27/16 15:16 09/27/16 15:16 Intake and Output: 09/27/16 09/27/16 06:59 18:59 Intake Total 1000 Output Total 500 Balance 500 - Medications Medications: Current Medications Acetaminophen (Tylenol 325mg Tab) 650 mg PO Q6 PRN PRN Reason: Fever >100.4 F Albuterol (Ventolin Hfa 90 Mcg/Actuation (8 G)) 2 puff INH Q4 PRN PRN Reason: Shortness of Breath Apixaban (Eliquis) 5 mg PO BID [facility] Last Admin: 09/27/16 09:58 Dose: 5 mg Darunavir (Prezista) 800 mg PO DAILY [facility] Last Admin: 09/27/16 09:58 Dose: 800 mg Docusate Sodium (Colace) 100 mg PO BID [facility] Last Admin: 09/27/16 09:58 Dose: 100 mg Dolutegravir Sodium (Tivicay) 50 mg PO DAILY [facility] Last Admin: 09/27/16 09:58 Dose: 50 mg Famciclovir (Famvir) 500 mg PO DAILY [facility] Last Admin: 09/27/16 09:58 Dose: 500 mg Hydromorphone HCl (Dilaudid) 1 mg IVP Q6H PRN PRN Reason: Pain, severe (8-10) Ciprofloxacin (Cipro 200mg/100ml D5w) 100 mls @ 67 mls/hr IVPB Q12H [facility] Last Admin: 09/27/16 06:27 Dose: 67 mls/hr Sodium Chloride (Sodium Chloride 0.9%) 1,000 mls @ 100 mls/hr IV .Q10H [facility] Last Admin: 09/27/16 14:10 Dose: 100 mls/hr Tigecycline 50 mg/ Dextrose 100 mls @ 100 mls/hr IVPB Q12H [facility] Last Admin: 09/27/16 10:18 Dose: 100 mls/hr Loratadine (Claritin) 10 mg PO DAILY [facility] Last Admin: 09/27/16 09:58 Dose: 10 mg Losartan Potassium (Cozaar) 100 mg PO DAILY [facility] Last Admin: 09/27/16 09:58 Dose: 100 mg Metoprolol Tartrate (Lopressor) 100 mg PO [facility] Last Admin: 09/26/16 21:23 Dose: 100 mg Montelukast Sodium (Singulair) 10 mg PO [facility] Last Admin: 09/26/16 21:23 Dose: 10 mg Ondansetron HCl (Zofran Inj) 4 mg IVP Q6 PRN PRN Reason: Nausea/Vomiting Last Admin: 09/27/16 16:17 Dose: 4 mg Oxycodone/Acetaminophen (Percocet 5/325 Mg Tab) 1 tab PO Q4H PRN PRN Reason: Pain, moderate (4-7) Stop: 09/28/16 22:21 Pantoprazole Sodium (Protonix Ec Tab) 40 mg PO DAILY [facility] Last Admin: 09/27/16 09:58 Dose: 40 mg Ritonavir (Norvir) 100 mg PO DAILY [facility] Last Admin: 09/27/16 09:58 Dose: 100 mg Simethicone (Mylicon Chew Tab) 80 mg PO BID [facility] Last Admin: 09/27/16 09:58 Dose: 80 mg Temazepam (Restoril) 15 mg PO [facility] Last Admin: 09/26/16 21:24 Dose: Not Given - Labs Labs: 09/26/16 07:36 09/26/16 07:36 - Constitutional Appears: Non-toxic - Head Exam Head Exam: ATRAUMATIC - Eye Exam Eye Exam: EOMI - ENT Exam ENT Exam: Mucous Membranes Moist - Neck Exam Neck Exam: absent: Lymphadenopathy, Thyromegaly - Respiratory Exam Respiratory Exam: Clear to Ausculation Bilateral. absent: Rales - Cardiovascular Exam Cardiovascular Exam: REGULAR RHYTHM - GI/Abdominal Exam GI & Abdominal Exam: Normal Bowel Sounds. absent: Organomegaly - Rectal Exam Rectal Exam: Deferred - Extremities Exam Extremities Exam: Normal Capillary Refill. absent: Calf Tenderness - Neurological Exam Neurological Exam: Alert, Oriented x3 - Psychiatric Exam Psychiatric exam: Normal Mood - Skin Skin Exam: Dry Assessment and Plan (1) Other mechanical complication of nephrostomy catheter, sequela Status: Acute (2) Hydronephrosis of left kidney Status: Chronic (3) Hydronephrosis of right kidney Status: Chronic (4) Intractable pain Status: Acute (5) Pyelonephritis, acute Status: Acute (6) AIDS Status: Chronic (7) History of depression Status: Chronic (8) History of uterine cancer Status: Chronic (9) Renal insufficiency Status: Chronic
--- NOTE | 2016-09-27 20:03 | CON ---
DATE: 09/27/2016 The patient has bilateral nephrostomy. The urine very infected and abnormal, cloudy. Culture is sti ll pending. The patient still has pelvic pain. I believe I am going to schedule her for cystoscopy to rule out any colovesical fistula. Cece Knutson MD cc: 43 TT: 09/27/2016 20:03:13 Confirmation # [id number] Dictation # [id number]
--- NOTE | 2016-09-27 20:16 | CON ---
DATE: 09/27/2016 The patient came to the ER on 09/25, and I was called because of her abdominal pain. The patient is a 61-year-old who has radiation and surgery for cervical tumor, and with bilateral nep hrostomy which we changed last July. This time presented with lower abdominal pain and flank pain , and no gross hematuria and no bleeding from the nephrostomy tube. PHYSICAL EXAMINATION: Revealed abdomen soft, mild flank discomfort, but mainly suprapubic tenderness and pain. CT scan which done on the admission on the 09/25, the patient has bilateral nephrostomy in place. No hydro. There is some very thickening wall bladder and abnormality in the bladder wall. IMPRESSION: The patient's condition post-radiation and pelvic surgery, has bilateral nephrostomy, an d urinary tract infection. PLAN: Follow up the urine, and I will see her. Cece Knutson MD cc: 43 TT: 09/27/2016 20:15:51 Confirmation # [id number] Dictation # [id number]
[2016-09-28] MEDS: Ciprofloxacin 200mg/100ml D5W 100 ML IVPB SCH ×2 (05:42→18:05)
[2016-09-28] MEDS: Tigecycline 50 MG in Dextrose 5% In Water 100 ML IVPB SCH ×2 (08:03→21:38)
[2016-09-28] MEDS: Sodium Chloride 0.9% 1,000 ML IV SCH ×3 (08:04→21:40)
[2016-09-28] MEDS: Simethicone 80 mg Chewtab PO SCH ×2 (13:45→18:06)
[2016-09-28] MEDS: Pantoprazole 40 mg EC Tab PO SCH (13:46)
[2016-09-28] MEDS ORDERED: Iohexol 240 200 ML IJ ONE (14:50)
[2016-09-28] MEDS ORDERED: Midazolam 2 MG/2 ML VIAL ONE (15:20)
[2016-09-28] MEDS ORDERED: Propofol 10 mg/ml Inj (20 ML) ONE (15:20)
[2016-09-28] MEDS ORDERED: Lactated Ringer's 1,000 ML IV ONE (15:53)
--- NOTE | 2016-09-28 18:40 | CP.PCM.PN ---
Subjective - Date & Time of Evaluation Date of Evaluation: 09/28/16 Time of Evaluation: 12:00 - Subjective Subjective: had cystoscopy did well, f/u with , ID Objective - Vital Signs/Intake and Output Vital Signs (last 24 hours): Temp Pulse Resp BP Pulse Ox 97.8 F 63 18 153/80 H 96 09/28/16 16:49 09/28/16 16:49 09/28/16 16:49 09/28/16 16:49 09/28/16 16:49 Intake and Output: 09/28/16 09/28/16 06:59 18:59 Intake Total 900 100 Output Total 550 250 Balance 350 -150 - Medications Medications: Current Medications Acetaminophen (Tylenol 325mg Tab) 650 mg PO Q6 PRN PRN Reason: Fever >100.4 F Albuterol (Ventolin Hfa 90 Mcg/Actuation (8 G)) 2 puff INH Q4 PRN PRN Reason: Shortness of Breath Apixaban (Eliquis) 5 mg PO BID [facility] Last Admin: 09/27/16 17:43 Dose: 5 mg Darunavir (Prezista) 800 mg PO DAILY [facility] Last Admin: 09/28/16 13:46 Dose: Not Given Docusate Sodium (Colace) 100 mg PO BID [facility] Last Admin: 09/28/16 18:06 Dose: Not Given Dolutegravir Sodium (Tivicay) 50 mg PO DAILY [facility] Last Admin: 09/28/16 13:47 Dose: Not Given Famciclovir (Famvir) 500 mg PO DAILY [facility] Last Admin: 09/28/16 13:45 Dose: Not Given Hydromorphone HCl (Dilaudid) 1 mg IVP Q6H PRN PRN Reason: Pain, severe (8-10) Ciprofloxacin (Cipro 200mg/100ml D5w) 100 mls @ 67 mls/hr IVPB Q12H [facility] Last Admin: 09/28/16 18:05 Dose: 67 mls/hr Sodium Chloride (Sodium Chloride 0.9%) 1,000 mls @ 100 mls/hr IV .Q10H [facility] Last Admin: 09/28/16 13:47 Dose: 100 mls/hr Tigecycline 50 mg/ Dextrose 100 mls @ 100 mls/hr IVPB Q12H [facility] Last Admin: 09/28/16 08:03 Dose: 100 mls/hr Loratadine (Claritin) 10 mg PO DAILY [facility] Last Admin: 09/28/16 13:45 Dose: Not Given Losartan Potassium (Cozaar) 100 mg PO DAILY [facility] Last Admin: 09/28/16 13:45 Dose: Not Given Metoprolol Tartrate (Lopressor) 100 mg PO [facility] Last Admin: 09/27/16 21:11 Dose: 100 mg Montelukast Sodium (Singulair) 10 mg PO [facility] Last Admin: 09/27/16 21:11 Dose: 10 mg Ondansetron HCl (Zofran Inj) 4 mg IVP Q6 PRN PRN Reason: Nausea/Vomiting Last Admin: 09/28/16 08:03 Dose: 4 mg Oxycodone/Acetaminophen (Percocet 5/325 Mg Tab) 1 tab PO Q4H PRN PRN Reason: Pain, moderate (4-7) Stop: 09/28/16 22:21 Pantoprazole Sodium (Protonix Ec Tab) 40 mg PO DAILY [facility] Last Admin: 09/28/16 13:46 Dose: Not Given Ritonavir (Norvir) 100 mg PO DAILY [facility] Last Admin: 09/28/16 13:46 Dose: Not Given Simethicone (Mylicon Chew Tab) 80 mg PO BID [facility] Last Admin: 09/28/16 18:06 Dose: 80 mg Temazepam (Restoril) 15 mg PO [facility] Last Admin: 09/27/16 21:11 Dose: 15 mg - Labs Labs: 09/26/16 07:36 09/26/16 07:36 - Constitutional Appears: Non-toxic - Head Exam Head Exam: ATRAUMATIC - Eye Exam Eye Exam: EOMI - ENT Exam ENT Exam: Mucous Membranes Moist - Neck Exam Neck Exam: absent: Lymphadenopathy, Thyromegaly - Respiratory Exam Respiratory Exam: Clear to Ausculation Bilateral. absent: Rales - Cardiovascular Exam Cardiovascular Exam: REGULAR RHYTHM. absent: Murmur - GI/Abdominal Exam GI & Abdominal Exam: Soft, Normal Bowel Sounds. absent: Organomegaly - Rectal Exam Rectal Exam: Deferred - Extremities Exam Extremities Exam: Normal Capillary Refill. absent: Calf Tenderness - Neurological Exam Neurological Exam: Alert, Oriented x3 - Psychiatric Exam Psychiatric exam: Normal Mood - Skin Skin Exam: Dry Assessment and Plan (1) Other mechanical complication of nephrostomy catheter, sequela Status: Acute (2) Hydronephrosis of left kidney Status: Chronic (3) Hydronephrosis of right kidney Status: Chronic (4) Intractable pain Status: Acute (5) Pyelonephritis, acute Status: Acute (6) AIDS Status: Chronic (7) History of depression Status: Chronic (8) History of uterine cancer Status: Chronic (9) Renal insufficiency Status: Chronic
--- NOTE | 2016-09-28 19:25 | CP.PCM.CON ---
History of Present Illness - History of Present Illness History of Present Illness: Asked by Dr. Vega to evaluate patient - vaginal bleeding Patient received in room 563 - in NAD; appears sleepy; otherwise, awake, and oriented to time, person, place. 61 y.o. , LMP 2000, S/P KEVIN-BSO ([facility]) - secondary to cervical cancer. 2001, underwent radiation therapy. Patient states has been having vaginal bleeding within a few months of radiation therapy to present. In the first few months, bleeding was heavy; in more recent years, in any given month, bleeds for approximately 26 days - some days heavy; most days light spotting. States was told by assistant merchandise manager provider, this vaginal bleeding is to expected , and that there "is nothing to do". Most recent assistant merchandise manager provider and visit - [facility] physician, 2-3 years ago. Does not recall name. P Ob: x 3: 09/1974, male, 8lb; 08/1975, female, 8lb; 12/1981, female, almost 9lb; one of twin - other fetus = male; stillbirth. [place] [facility] [place] ANIMAL CYTOLOGIST: 13 x monthly x up to 10 days. 2001, diagnosed cervical cancer; as above. PMH: multiple medical issues (see admitting H&P), including HIV positive ( diagnosed 1993). Patient states has multiple GI and problems since radiation therapy. PSH: 2001, KEVIN-BSO; 2009, colostomy. NKDA Medications: see list Review of Systems - Review of Systems All systems: reviewed and no additional remarkable complaints except - Reproductive: Female Reproductive:Female: As Per HPI - Menstruation Menstruation: As Per HPI Past Patient History - Infectious Disease Hx of Infectious Diseases: None (HIV positive) - Past Medical History & Family History Past Medical History?: Yes - Past Social History Smoking Status: Former Smoker - CARDIAC Hx Congestive Heart Failure: Yes Hx Hypercholesterolemia: Yes Hx Hypertension: Yes - PULMONARY Hx Chronic Obstructive Pulmonary Disease (COPD): Yes - NEUROLOGICAL Hx Neurological Disorder: Yes (SEE COMMENT) Hx Syncope: Yes (10 yrs unknown reason) Other/Comment: HEADACHES - HEENT Hx HEENT Problems: Yes (SEE COMMENT) Hx Cataracts: Yes (BILATERAL) - RENAL Hx Chronic Kidney Disease: Yes (SEE COMMENTS) Hx Kidney Stones: Yes - ENDOCRINE/METABOLIC Hx Endocrine Disorders: No - HEMATOLOGICAL/ONCOLOGICAL Hx Anemia: Yes Hx Human Immunodeficiency Virus (HIV): Yes ("private") - INTEGUMENTARY Hx Dermatological Problems: Yes (SEE COMMENT) Other/Comment: Colostomy, Nephrostomy - MUSCULOSKELETAL/RHEUMATOLOGICAL Hx Arthritis: Yes - GASTROINTESTINAL Hx Gastritis: Yes Hx Pancreatitis: Yes - GENITOURINARY/GYNECOLOGICAL Hx Genitourinary Disorders: Yes Hx Cervical Cancer: Yes Hx Hematuria: Yes Hx Urinary Tract Infection: Yes Other/Comment: ureteral stent in both kidneys - changed Q3 months. bilateral nephrostomy tubes(2013) last changed 05/27 - PSYCHIATRIC Hx Anxiety: Yes Hx Depression: Yes (secondary to cindy HIV from her male partner) Hx Substance Use: No - SURGICAL HISTORY Hx Cholecystectomy: Yes Hx Hysterectomy: Yes (total abdominal with bilateral salpingo-oophorectomy) - ANESTHESIA Hx Anesthesia: Yes Hx Anesthesia Reactions: Yes (Hard to wake up even with sedation) Hx Malignant Hyperthermia: Yes (prev surgery, rt for uterine ca) Meds Home Medications: Home Medication List Medication Instructions Recorded Confirmed Type Ciprofloxacin HCl [Cipro] 250 mg PO BID #10 tablet 09/30/16 Rx Allergies/Adverse Reactions: Allergies Allergy/AdvReac Type Severity Reaction Status Date / Time sulfamethoxazole Allergy Intermediate ITCHING Verified 09/25/16 15:52 [From Bactrim] aloe vera Allergy ITCHING Verified 09/25/16 15:52 Sulfa (Sulfonamide Allergy ITCHING Verified 09/25/16 15:52 Antibiotics) - Medications Medications: Current Medications Acetaminophen (Tylenol 325mg Tab) 650 mg PO Q6 PRN PRN Reason: Fever >100.4 F Albuterol (Ventolin Hfa 90 Mcg/Actuation (8 G)) 2 puff INH Q4 PRN PRN Reason: Shortness of Breath Apixaban (Eliquis) 5 mg PO BID [facility] Last Admin: 09/27/16 17:43 Dose: 5 mg Darunavir (Prezista) 800 mg PO DAILY [facility] Last Admin: 09/28/16 13:46 Dose: Not Given Docusate Sodium (Colace) 100 mg PO BID [facility] Last Admin: 09/28/16 18:06 Dose: Not Given Dolutegravir Sodium (Tivicay) 50 mg PO DAILY [facility] Last Admin: 09/28/16 13:47 Dose: Not Given Famciclovir (Famvir) 500 mg PO DAILY [facility] Last Admin: 09/28/16 13:45 Dose: Not Given Hydromorphone HCl (Dilaudid) 1 mg IVP Q6H PRN PRN Reason: Pain, severe (8-10) Ciprofloxacin (Cipro 200mg/100ml D5w) 100 mls @ 67 mls/hr IVPB Q12H [facility] Last Admin: 09/28/16 18:05 Dose: 67 mls/hr Sodium Chloride (Sodium Chloride 0.9%) 1,000 mls @ 100 mls/hr IV .Q10H [facility] Last Admin: 09/28/16 13:47 Dose: 100 mls/hr Tigecycline 50 mg/ Dextrose 100 mls @ 100 mls/hr IVPB Q12H [facility] Last Admin: 09/28/16 08:03 Dose: 100 mls/hr Loratadine (Claritin) 10 mg PO DAILY [facility] Last Admin: 09/28/16 13:45 Dose: Not Given Losartan Potassium (Cozaar) 100 mg PO DAILY [facility] Last Admin: 09/28/16 13:45 Dose: Not Given Metoprolol Tartrate (Lopressor) 100 mg PO [facility] Last Admin: 09/27/16 21:11 Dose: 100 mg Montelukast Sodium (Singulair) 10 mg PO [facility] Last Admin: 09/27/16 21:11 Dose: 10 mg Ondansetron HCl (Zofran Inj) 4 mg IVP Q6 PRN PRN Reason: Nausea/Vomiting Last Admin: 09/28/16 08:03 Dose: 4 mg Oxycodone/Acetaminophen (Percocet 5/325 Mg Tab) 1 tab PO Q4H PRN PRN Reason: Pain, moderate (4-7) Stop: 09/28/16 22:21 Pantoprazole Sodium (Protonix Ec Tab) 40 mg PO DAILY [facility] Last Admin: 09/28/16 13:46 Dose: Not Given Ritonavir (Norvir) 100 mg PO DAILY [facility] Last Admin: 09/28/16 13:46 Dose: Not Given Simethicone (Mylicon Chew Tab) 80 mg PO BID [facility] Last Admin: 09/28/16 18:06 Dose: 80 mg Temazepam (Restoril) 15 mg PO [facility] Last Admin: 09/27/16 21:11 Dose: 15 mg Physical Exam - Constitutional Appears: No Acute Distress - Head Exam Head Exam: NORMAL INSPECTION - Neck Exam Neck exam: Positive for: Full Rom - Respiratory Exam Respiratory Exam: NORMAL BREATHING PATTERN - Cardiovascular Exam Cardiovascular Exam: REGULAR RHYTHM - GI/Abdominal Exam GI & Abdominal Exam: Normal Bowel Sounds Additional comments: (+) colostomy, left of midline - Exam Bimanual exam: NORMAL BIMANUAL EXAM (Patient declines vaginal examination at this time) - Neurological Exam Neurological exam: Oriented x3 - Psychiatric Exam Psychiatric exam: Flat Affect - Skin Skin Exam: Dry, Normal Color, Warm Results - Vital Signs Recent Vital Signs: Last Vital Signs Temp 97.8 F 09/28/16 16:49 Pulse 63 09/28/16 16:49 Resp 18 09/28/16 16:49 BP 153/80 H 09/28/16 16:49 Pulse Ox 96 09/28/16 16:49 - Labs Result Diagrams: 09/28/16 19:37 09/28/16 19:37 Labs: Laboratory Results - last 24 hr 09/26/16 07:36 HIV-1 RNA Qnt (RT-PCR) <1.30 not detected Assessment & Plan - Assessment and Plan (Free Text) Assessment: HD#3 61 yo [id number], S/P KEVIN-BSO and radiation therapy for cervical cancer - long history of vaginal bleeding; most likely due to atrophic vaginitis from both radiation therapy and post menopausal status. Patient states has made many attempts to secure a assistant merchandise manager provider; has been told that her insurance is not accepted. Patient declined assistant merchandise manager examination today due to recent procedure today - felt uncomfortable. Most likely, given chronicity of vaginal bleeding, no assistant merchandise manager intervention indicated at this time. Consider [place] assistance with finding assistant merchandise manager provider. Patient in stable condition. Thank you for the pleasure of this consultation. Please re-consult if needed. - Date & Time Date: 09/28/16 Time: 18:30
[2016-09-28 19:44] LABS: BASO % 0.5 % (0.0-2.0); EOS # 0.1 K/uL (0.0-0.7); EOS % 1.1 % (0.0-4.0); HEMATOCRIT 33.3 % (34.0-47.0); LYMPH # 2.2 K/uL (1.0-4.3); LYMPH % 36.5 % (20.0-40.0); MEAN CELL VOLUME 83.3 fL (81.0-99.0); MEAN CORPUSCULAR HEMOGLOBIN 25.9 pg (27.0-31.0); MEAN CORPUSCULAR HGB CONC 31.1 g/dL (33.0-37.0); MEAN PLATELET VOLUME 9.8 fL (7.2-11.7); MONO # 0.4 K/uL (0.0-0.8); MONO % 7.5 % (0.0-10.0); RED CELL DISTRIBUTION WIDTH 17.4 % (11.5-14.5)
[2016-09-28 19:51] LABS: INR 1.5
[2016-09-28 19:53] LABS: POTASSIUM 4.3 mmol/L (3.6-5.2)
[2016-09-28 19:56] LABS: CALCIUM 8.5 mg/dl (8.6-10.4)
--- NOTE | 2016-09-28 21:13 | OP ---
PROCEDURE DATE: 09/28/2016 PREOPERATIVE DIAGNOSES: Infected urine, vaginal bleeding, question bleeding from bladder. POSTOPERATIVE DIAGNOSES: Question recurrent tissue in the pelvic area, hard indurated. Bladder smal l but not infected. Cystogram revealed left ureteral reflux, massive to the left; no reflux to the r ight. PROCEDURES: Cystoscopy and cystogram. DESCRIPTION OF THE PROCEDURE: While the patient in lithotomy position, genitalia prepped and draped in sterile fashion. The patient given IV sedation. Cystoscopy revealed bladder revealed some hemorr hagic area, but no evidence of any clear mass or any connection to any bowel area. No evidence of an y fistula. The bladder neck was normal. After removing the scope from the bladder, the pelvic floor inspected. It is hard, indurated. There is some necrotic material in the vaginal dome with some re current tissue seen; could be recurrent tumor. The patient needs to be evaluated by RIGGING UP WORKER for a biopsy of that area. Cystogram done by putting 16 Bañuelos. Filling the bladder revealed a smooth outline of the bladder, no evidence of diverticula, no filling defect; massive reflux on the left side. The pa tient tolerated the procedure well. After emptying the bladder, the patient transferred to the [facility] room in good condition. Cece Knutson MD cc: [phone] TT: 09/28/2016 21:12:32 al
--- NOTE | 2016-09-28 22:05 | CP.PCM.PN ---
Subjective - Date & Time of Evaluation Date of Evaluation: 09/28/16 Time of Evaluation: 22:05 - Subjective Subjective: CHIEF COMPLAINTS TODAY : afebrile, s/p CYSTOSCOPY -findings discussed with s/p ACCOUNTS SUPERVISOR evaluation for intermittent vaginal bleeding and cystoscopic findings as per ROS. HEENT : N. Resp : No SOB wheezing, cough Cardio : No CP, PND orthopnea GI : +VE ABDOMINAL PAIN,AND FLANK PAIN. NO NAUSEA OR VOMITING. 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 Musculoskel : N Ext. : Pedal pulses intact, no edema or calf pain Derm : N Psych : N. PE. Pt. is alert awake in no distress. V.S As noted in the chart Head ,ear nose,throat and eyes : Normal. Neck : Supple with normal carotids. Lungs: Clear air entry. Heart : S1 & S2 normal . . No murmur. S4 + Abd : Soft ,MILD TENDERNESS BOTH FLANKS AND LOWER ABDOMEN, with normal bowel sounds. Neuro : Moves all ext. with no localized deficit. Ext : No edema with intact pulses. Neg. calf tenderness Derm : No rashes or decubitus ulcer. Radiology/Labs . LABS REVIEWED. CD4 HELPER CELLS 547 CELLS PER Ml HIV-[address] OF THE ABDOMEN AND PELVIS WITHOUT BY MOUTH OR iv CONTRAST NO GROSS CHANGES, BILATERAL HYDRONEPHROSIS, THICKENING OF THE BLADDER WALL SUSPICIOUS FOR CYSTITIS. urine cultures +ve PSEUDOMONAS AERUGINOSA S -CIPRO.IMIPENEM Asssessment : -ABDOMINAL PAIN -COMPLICATED UTI/PYELONEPHRITIS -BILATERAL HYDRONEPHROSIS S/P BILATERAL NT IN PLACE. -CA. OF THE CERVIX S/P ILEOSTOMY.. -ACQUIRED IMMUNE DEFICIENCY SYNDROME.. - PRERENAL AZOTEMIA. -HX OF DVT/S/P IVC FILTER/AND ELAQUIS. - Plan : ON Cipro 200 mg IV piggybag every 12 hourly.09/25/16 ON IV Tygacil 50 mg every 12 hourly.09/25/16 -Repeat UA, urine culture -repeat [id number] 09/26-P -FOLLOW-UP CULTURES TO ADJUST ANTIBIOTICS -ZOFRAN 4 MG WHEN NECESSARY EVERY 6 HOURLY FOR NAUSEA PER pmd.- - ACCOUNTS SUPERVISOR CONSULT APPRECIATED. IF STABLE THEN dc iv tYGACIL IN A.M. START BY MOUTH CIPRO 250 TWICE A DAY X 5 DAYS . Objective - Vital Signs/Intake and Output Vital Signs (last 24 hours): Temp Pulse Resp BP Pulse Ox 97.8 F 63 18 153/80 H 96 09/28/16 16:49 09/28/16 18:00 09/28/16 16:49 09/28/16 16:49 09/28/16 16:49 Intake and Output: 09/28/16 09/29/16 18:59 06:59 Intake Total 100 Output Total 250 Balance -150 - Medications Medications: Current Medications Acetaminophen (Tylenol 325mg Tab) 650 mg PO Q6 PRN PRN Reason: Fever >100.4 F Albuterol (Ventolin Hfa 90 Mcg/Actuation (8 G)) 2 puff INH Q4 PRN PRN Reason: Shortness of Breath Apixaban (Eliquis) 5 mg PO BID [facility] Last Admin: 09/28/16 18:06 Dose: 5 mg Darunavir (Prezista) 800 mg PO DAILY [facility] Last Admin: 09/28/16 13:46 Dose: Not Given Docusate Sodium (Colace) 100 mg PO BID [facility] Last Admin: 09/28/16 18:06 Dose: Not Given Dolutegravir Sodium (Tivicay) 50 mg PO DAILY [facility] Last Admin: 09/28/16 13:47 Dose: Not Given Famciclovir (Famvir) 500 mg PO DAILY [facility] Last Admin: 09/28/16 13:45 Dose: Not Given Hydromorphone HCl (Dilaudid) 1 mg IVP Q6H PRN PRN Reason: Pain, severe (8-10) Ciprofloxacin (Cipro 200mg/100ml D5w) 100 mls @ 67 mls/hr IVPB Q12H [facility] Last Admin: 09/28/16 18:05 Dose: 67 mls/hr Sodium Chloride (Sodium Chloride 0.9%) 1,000 mls @ 100 mls/hr IV .Q10H [facility] Last Admin: 09/28/16 21:40 Dose: Not Given Tigecycline 50 mg/ Dextrose 100 mls @ 100 mls/hr IVPB Q12H [facility] Last Admin: 09/28/16 21:38 Dose: 100 mls/hr Loratadine (Claritin) 10 mg PO DAILY [facility] Last Admin: 09/28/16 13:45 Dose: Not Given Losartan Potassium (Cozaar) 100 mg PO DAILY [facility] Last Admin: 09/28/16 13:45 Dose: Not Given Metoprolol Tartrate (Lopressor) 100 mg PO HS [facility] Last Admin: 09/28/16 21:39 Dose: Not Given Montelukast Sodium (Singulair) 10 mg PO HS [facility] Last Admin: 09/28/16 21:40 Dose: Not Given Ondansetron HCl (Zofran Inj) 4 mg IVP Q6 PRN PRN Reason: Nausea/Vomiting Last Admin: 09/28/16 21:37 Dose: 4 mg Oxycodone/Acetaminophen (Percocet 5/325 Mg Tab) 1 tab PO Q4H PRN PRN Reason: Pain, moderate (4-7) Stop: 09/28/16 22:21 Pantoprazole Sodium (Protonix Ec Tab) 40 mg PO DAILY [facility] Last Admin: 09/28/16 13:46 Dose: Not Given Ritonavir (Norvir) 100 mg PO DAILY [facility] Last Admin: 09/28/16 13:46 Dose: Not Given Simethicone (Mylicon Chew Tab) 80 mg PO BID [facility] Last Admin: 09/28/16 18:06 Dose: 80 mg Temazepam (Restoril) 15 mg PO [facility] Last Admin: 09/28/16 21:39 Dose: Not Given - Labs Labs: 09/28/16 19:37 09/28/16 19:37 PT 16.7 SECONDS (9.7-12.2) H 09/28/16 19:37 INR 1.5 09/28/16 19:37 APTT 30 SECONDS (21-34) 09/28/16 19:37 Assessment and Plan (1) Abdominal pain Status: Acute (2) Complicated urinary tract infection Status: Acute (3) Creatinine elevation Status: Acute (4) Cancer of cervix Status: Chronic (5) Colostomy in place Status: Chronic (6) HIV (human immunodeficiency virus infection) Status: Chronic (7) Deep venous thrombosis of lower extremity Status: Acute
[2016-09-29 00:42] VITALS: RESP 20
[2016-09-29] MEDS: Ciprofloxacin 200mg/100ml D5W 100 ML IVPB SCH ×2 (05:31→17:57)
[2016-09-29] MEDS: Sodium Chloride 0.9% 1,000 ML IV SCH ×2 (05:31→22:26)
[2016-09-29] MEDS: Pantoprazole 40 mg EC Tab PO SCH (09:36)
[2016-09-29] MEDS: Simethicone 80 mg Chewtab PO SCH ×2 (09:37→17:57)
--- NOTE | 2016-09-29 11:52 | CP.PCM.PN ---
Subjective - Date & Time of Evaluation Date of Evaluation: 09/29/16 Time of Evaluation: 11:52 - Subjective Subjective: CHIEF COMPLAINTS TODAY : afebrile, c/o NAUSEA c/olower abdominal pain but much improved. ROS. HEENT : N. Resp : No SOB wheezing, cough Cardio : No CP, PND orthopnea GI : +VE ABDOMINAL PAIN,AND FLANK PAIN. NO NAUSEA OR VOMITING. 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 Musculoskel : N Ext. : Pedal pulses intact, no edema or calf pain Derm : N Psych : N. PE. Pt. is alert awake in no distress. V.S As noted in the chart Head ,ear nose,throat and eyes : Normal. Neck : Supple with normal carotids. Lungs: Clear air entry. Heart : S1 & S2 normal . . No murmur. S4 + Abd : Soft ,MILD TENDERNESS BOTH FLANKS AND LOWER ABDOMEN, with normal bowel sounds. Neuro : Moves all ext. with no localized deficit. Ext : No edema with intact pulses. Neg. calf tenderness Derm : No rashes or decubitus ulcer. Radiology/Labs . LABS REVIEWED. CT OF THE ABDOMEN AND PELVIS WITHOUT BY MOUTH OR iv CONTRAST NO GROSS CHANGES, BILATERAL HYDRONEPHROSIS, THICKENING OF THE BLADDER WALL SUSPICIOUS FOR CYSTITIS. urine cultures +ve gram-negative jaret/gram-negative rods #2 pending Repeat UA, urine culture -multiple species contaminant. Asssessment : -ABDOMINAL PAIN -COMPLICATED UTI/PYELONEPHRITIS -BILATERAL HYDRONEPHROSIS S/P BILATERAL NT IN PLACE. -SEE OF THE CERVIX S/P ILEOSTOMY.. -ACQUIRED IMMUNE DEFICIENCY SYNDROME.. - PRERENAL AZOTEMIA. -HX OF DVT/S/P IVC FILTER/AND ELAQUIS. - Plan : -on Cipro 400 mg loading dose 09/25/16 Follow-up BY Cipro 200 mg IV piggybag every 12 hourly x 5 days off iv Tygacil 50 mg every 12 hourly. 09/25/16-09/28 -pt on ZOFRAN 4 MG WHEN NECESSARY EVERY 6 HOURLY FOR NAUSEA PER pmd. - Will switch to PO cipro when can tolerate. Objective - Vital Signs/Intake and Output Vital Signs (last 24 hours): Temp Pulse Resp BP Pulse Ox 98 F 77 20 165/90 H 97 09/29/16 07:41 09/29/16 10:41 09/29/16 07:41 09/29/16 07:41 09/29/16 07:41 Intake and Output: 09/29/16 09/29/16 06:59 18:59 Intake Total 1500 Output Total 1050 Balance 450 - Medications Medications: Current Medications Acetaminophen (Tylenol 325mg Tab) 650 mg PO Q6 PRN PRN Reason: Fever >100.4 F Albuterol (Ventolin Hfa 90 Mcg/Actuation (8 G)) 2 puff INH Q4 PRN PRN Reason: Shortness of Breath Apixaban (Eliquis) 5 mg PO BID [facility] Last Admin: 09/29/16 09:51 Dose: Not Given Darunavir (Prezista) 800 mg PO DAILY [facility] Last Admin: 09/29/16 09:36 Dose: 800 mg Docusate Sodium (Colace) 100 mg PO BID [facility] Last Admin: 09/29/16 09:36 Dose: 100 mg Dolutegravir Sodium (Tivicay) 50 mg PO DAILY [facility] Last Admin: 09/29/16 09:36 Dose: 50 mg Famciclovir (Famvir) 500 mg PO DAILY [facility] Last Admin: 09/29/16 09:36 Dose: 500 mg Hydromorphone HCl (Dilaudid) 1 mg IVP Q6H PRN PRN Reason: Pain, severe (8-10) Ciprofloxacin (Cipro 200mg/100ml D5w) 100 mls @ 67 mls/hr IVPB Q12H [facility] Last Admin: 09/29/16 05:31 Dose: 67 mls/hr Sodium Chloride (Sodium Chloride 0.9%) 1,000 mls @ 100 mls/hr IV .Q10H [facility] Last Admin: 09/29/16 05:31 Dose: 100 mls/hr Loratadine (Claritin) 10 mg PO DAILY [facility] Last Admin: 09/29/16 09:37 Dose: 10 mg Losartan Potassium (Cozaar) 100 mg PO DAILY [facility] Last Admin: 09/29/16 09:36 Dose: 100 mg Metoprolol Tartrate (Lopressor) 100 mg PO [facility] Last Admin: 09/28/16 21:39 Dose: Not Given Montelukast Sodium (Singulair) 10 mg PO [facility] Last Admin: 09/28/16 21:40 Dose: Not Given Ondansetron HCl (Zofran Inj) 4 mg IVP Q6 PRN PRN Reason: Nausea/Vomiting Last Admin: 09/29/16 06:49 Dose: 4 mg Pantoprazole Sodium (Protonix Ec Tab) 40 mg PO DAILY [facility] Last Admin: 09/29/16 09:36 Dose: 40 mg Ritonavir (Norvir) 100 mg PO DAILY [facility] Last Admin: 09/29/16 09:36 Dose: 100 mg Simethicone (Mylicon Chew Tab) 80 mg PO BID [facility] Last Admin: 09/29/16 09:37 Dose: 80 mg Temazepam (Restoril) 15 mg PO HS [facility] Last Admin: 09/28/16 21:39 Dose: Not Given - Labs Labs: 09/28/16 19:37 09/28/16 19:37 PT 16.7 SECONDS (9.7-12.2) H 09/28/16 19:37 INR 1.5 09/28/16 19:37 APTT 30 SECONDS (21-34) 09/28/16 19:37 Assessment and Plan (1) Abdominal pain Status: Acute (2) Complicated urinary tract infection Status: Acute (3) Creatinine elevation Status: Acute (4) Cancer of cervix Status: Chronic (5) Colostomy in place Status: Chronic (6) HIV (human immunodeficiency virus infection) Status: Chronic (7) Deep venous thrombosis of lower extremity Status: Acute
--- NOTE | 2016-09-29 13:26 | RAD ---
HISTORY: UTI/ HEMATURIA COMPARISON: Abdomen dated 09/28/2016. History: UTI. Hematuria. Single AP view of the abdomen performed and compared with prior study 07/31/2015. There are bilateral nephrostomy tubes in place. FINDINGS: BOWEL: Normal. No obstruction. No free air. BONES: Normal. OTHER FINDINGS: Interval placement IVC filter. Bilateral nephrostomy tubes are again noted. Metallic clips right upper quadrant gliotic consistent with prior cholecystectomy unchanged. Metallic clips also noted overlying the superior aspect left parasagittal true pelvis. IMPRESSION: In situ bilateral nephrostomy tubes and interval placement IVC. Lungs:
--- NOTE | 2016-09-29 16:11 | CP.PCM.PN ---
Subjective - Date & Time of Evaluation Date of Evaluation: 09/29/16 Time of Evaluation: 14:00 - Subjective Subjective: Doing well, had cystoscopy and evaluation of RETAIL RECEIVING CLERK, on Cipro on Tygacil, antibiotically as per infectious disease Objective - Vital Signs/Intake and Output Vital Signs (last 24 hours): Temp Pulse Resp BP Pulse Ox 98.6 F 79 20 155/89 H 96 09/29/16 15:34 09/29/16 15:34 09/29/16 15:34 09/29/16 15:34 09/29/16 15:34 Intake and Output: 09/29/16 09/29/16 06:59 18:59 Intake Total 1500 Output Total 1050 Balance 450 - Medications Medications: Current Medications Acetaminophen (Tylenol 325mg Tab) 650 mg PO Q6 PRN PRN Reason: Fever >100.4 F Albuterol (Ventolin Hfa 90 Mcg/Actuation (8 G)) 2 puff INH Q4 PRN PRN Reason: Shortness of Breath Apixaban (Eliquis) 5 mg PO BID [facility] Last Admin: 09/29/16 09:51 Dose: Not Given Darunavir (Prezista) 800 mg PO DAILY [facility] Last Admin: 09/29/16 09:36 Dose: 800 mg Docusate Sodium (Colace) 100 mg PO BID [facility] Last Admin: 09/29/16 09:36 Dose: 100 mg Dolutegravir Sodium (Tivicay) 50 mg PO DAILY [facility] Last Admin: 09/29/16 09:36 Dose: 50 mg Famciclovir (Famvir) 500 mg PO DAILY [facility] Last Admin: 09/29/16 09:36 Dose: 500 mg Hydromorphone HCl (Dilaudid) 1 mg IVP Q6H PRN PRN Reason: Pain, severe (8-10) Ciprofloxacin (Cipro 200mg/100ml D5w) 100 mls @ 67 mls/hr IVPB Q12H [facility] Last Admin: 09/29/16 05:31 Dose: 67 mls/hr Sodium Chloride (Sodium Chloride 0.9%) 1,000 mls @ 100 mls/hr IV .Q10H [facility] Last Admin: 09/29/16 05:31 Dose: 100 mls/hr Loratadine (Claritin) 10 mg PO DAILY [facility] Last Admin: 09/29/16 09:37 Dose: 10 mg Losartan Potassium (Cozaar) 100 mg PO DAILY [facility] Last Admin: 09/29/16 09:36 Dose: 100 mg Metoprolol Tartrate (Lopressor) 100 mg PO HS [facility] Last Admin: 09/28/16 21:39 Dose: Not Given Montelukast Sodium (Singulair) 10 mg PO HS [facility] Last Admin: 09/28/16 21:40 Dose: Not Given Ondansetron HCl (Zofran Inj) 4 mg IVP Q6 PRN PRN Reason: Nausea/Vomiting Last Admin: 09/29/16 06:49 Dose: 4 mg Pantoprazole Sodium (Protonix Ec Tab) 40 mg PO DAILY [facility] Last Admin: 09/29/16 09:36 Dose: 40 mg Ritonavir (Norvir) 100 mg PO DAILY [facility] Last Admin: 09/29/16 09:36 Dose: 100 mg Simethicone (Mylicon Chew Tab) 80 mg PO BID [facility] Last Admin: 09/29/16 09:37 Dose: 80 mg Temazepam (Restoril) 15 mg PO [facility] Last Admin: 09/28/16 21:39 Dose: Not Given - Labs Labs: 09/28/16 19:37 09/28/16 19:37 PT 16.7 SECONDS (9.7-12.2) H 09/28/16 19:37 INR 1.5 09/28/16 19:37 APTT 30 SECONDS (21-34) 09/28/16 19:37 - Constitutional Appears: Non-toxic - Head Exam Head Exam: ATRAUMATIC - Eye Exam Eye Exam: EOMI - ENT Exam ENT Exam: Mucous Membranes Moist - Neck Exam Neck Exam: absent: Lymphadenopathy, Thyromegaly - Respiratory Exam Respiratory Exam: Clear to Ausculation Bilateral. absent: Rales - Cardiovascular Exam Cardiovascular Exam: REGULAR RHYTHM - GI/Abdominal Exam GI & Abdominal Exam: Normal Bowel Sounds. absent: Organomegaly - Rectal Exam Rectal Exam: Deferred - Extremities Exam Extremities Exam: Normal Capillary Refill. absent: Calf Tenderness - Neurological Exam Neurological Exam: Alert, Oriented x3 - Psychiatric Exam Psychiatric exam: Depressed - Skin Skin Exam: Dry Assessment and Plan (1) Other mechanical complication of nephrostomy catheter, sequela Status: Acute (2) Hydronephrosis of left kidney Status: Chronic (3) Hydronephrosis of right kidney Status: Chronic (4) Intractable pain Status: Acute (5) Pyelonephritis, acute Status: Acute (6) AIDS Status: Chronic (7) History of depression Status: Chronic (8) History of uterine cancer Status: Chronic (9) Renal insufficiency Status: Chronic
[2016-09-30] MEDS: Ciprofloxacin 200mg/100ml D5W 100 ML IVPB SCH (05:59)
[2016-09-30] MEDS: Sodium Chloride 0.9% 1,000 ML IV SCH ×3 (06:04→11:58)
[2016-09-30] MEDS: Pantoprazole 40 mg EC Tab PO SCH (09:28)
[2016-09-30] MEDS: Simethicone 80 mg Chewtab PO SCH ×2 (09:29→17:57)
--- NOTE | 2016-09-30 09:45 | RAD ---
PROCEDURE: Fluoroscopy up to 1 hr. HISTORY: UTI/HEMATURIA COMPARISON: None TECHNIQUE: Standard protocol for this study/examination. FINDINGS: Submitted images from the current procedure: 3.0. Total fluoroscopic time (continuous mode) utilized during the procedure: 8.1 seconds. IMPRESSION: Less than 1 hr fluoroscopic time utilized during performance of the procedure.
--- NOTE | 2016-09-30 12:56 | CP.PCM.PN ---
Subjective - Date & Time of Evaluation Date of Evaluation: 09/30/16 Time of Evaluation: 12:56 - Subjective Subjective: CHIEF COMPLAINTS TODAY : afebrile, feeling better ROS. HEENT : N. Resp : No SOB wheezing, cough Cardio : No CP, PND orthopnea GI : +VE ABDOMINAL PAIN,AND FLANK PAIN. NO NAUSEA OR VOMITING. CLIENT SERVICES MANAGER : No headache , focal deficit. Musculoskel : N Ext. : Pedal pulses intact, no edema or calf pain Derm : N Psych : N. PE. Pt. is alert awake in no distress. V.S As noted in the chart Head ,ear nose,throat and eyes : Normal. Neck : Supple with normal carotids. Lungs: Clear air entry. Heart : S1 & S2 normal . . No murmur. S4 + Abd : Soft ,MILD TENDERNESS BOTH FLANKS AND LOWER ABDOMEN, with normal bowel sounds. Neuro : Moves all ext. with no localized deficit. Ext : No edema with intact pulses. Neg. calf tenderness Derm : No rashes or decubitus ulcer. Radiology/Labs . Repeat UA, urine culture -multiple species contaminant. HIV VL -NOT DETECTED. CD4 HELPER CELLS >500 Asssessment : -ABDOMINAL PAIN -COMPLICATED UTI/PYELONEPHRITIS -BILATERAL HYDRONEPHROSIS S/P BILATERAL NT IN PLACE. -SEE OF THE CERVIX S/P ILEOSTOMY.. -ACQUIRED IMMUNE DEFICIENCY SYNDROME.. - PRERENAL AZOTEMIA. -HX OF DVT/S/P IVC FILTER/AND ELAQUIS. - Plan : -on Cipro 400 mg loading dose 09/25/16 Follow-up BY Cipro 200 mg IV piggybag every 12 hourly x 5 days off iv Tygacil 50 mg every 12 hourly. 09/25/16-09/28 - - Will switch to PO cipro 250 bid x 5 days case discussed [facility] CONTRACT SPECIALIST MS DOSHI F/U IN OFFICE NEXT WEEK. Objective - Vital Signs/Intake and Output Vital Signs (last 24 hours): Temp Pulse Resp BP Pulse Ox 97.9 F 66 20 164/91 H 98 09/30/16 00:00 09/30/16 00:41 09/30/16 00:00 09/30/16 00:00 09/30/16 00:00 Intake and Output: 09/30/16 09/30/16 06:59 18:59 Intake Total 1500 Output Total 1300 Balance 200 - Medications Medications: Current Medications Acetaminophen (Tylenol 325mg Tab) 650 mg PO Q6 PRN PRN Reason: Fever >100.4 F Albuterol (Ventolin Hfa 90 Mcg/Actuation (8 G)) 2 puff INH Q4 PRN PRN Reason: Shortness of Breath Apixaban (Eliquis) 5 mg PO BID [facility] Last Admin: 09/30/16 09:29 Dose: 5 mg Darunavir (Prezista) 800 mg PO DAILY [facility] Last Admin: 09/30/16 09:29 Dose: 800 mg Docusate Sodium (Colace) 100 mg PO BID [facility] Last Admin: 09/30/16 09:28 Dose: Not Given Dolutegravir Sodium (Tivicay) 50 mg PO DAILY [facility] Last Admin: 09/30/16 09:55 Dose: 50 mg Famciclovir (Famvir) 500 mg PO DAILY [facility] Last Admin: 09/30/16 09:29 Dose: 500 mg Hydromorphone HCl (Dilaudid) 1 mg IVP Q6H PRN PRN Reason: Pain, severe (8-10) Ciprofloxacin (Cipro 200mg/100ml D5w) 100 mls @ 67 mls/hr IVPB Q12H [facility] Last Admin: 09/30/16 05:59 Dose: 67 mls/hr Sodium Chloride (Sodium Chloride 0.9%) 1,000 mls @ 100 mls/hr IV .Q10H [facility] Last Admin: 09/30/16 11:58 Dose: 100 mls/hr Loratadine (Claritin) 10 mg PO DAILY [facility] Last Admin: 09/30/16 09:28 Dose: 10 mg Losartan Potassium (Cozaar) 100 mg PO DAILY [facility] Last Admin: 09/30/16 09:28 Dose: 100 mg Metoprolol Tartrate (Lopressor) 100 mg PO HS [facility] Last Admin: 09/29/16 22:24 Dose: 100 mg Montelukast Sodium (Singulair) 10 mg PO HS [facility] Last Admin: 09/29/16 22:24 Dose: 10 mg Ondansetron HCl (Zofran Inj) 4 mg IVP Q6 PRN PRN Reason: Nausea/Vomiting Last Admin: 09/30/16 09:34 Dose: 4 mg Pantoprazole Sodium (Protonix Ec Tab) 40 mg PO DAILY [facility] Last Admin: 09/30/16 09:28 Dose: 40 mg Ritonavir (Norvir) 100 mg PO DAILY [facility] Last Admin: 09/30/16 09:29 Dose: 100 mg Simethicone (Mylicon Chew Tab) 80 mg PO BID [facility] Last Admin: 09/30/16 09:29 Dose: 80 mg Temazepam (Restoril) 15 mg PO HS [facility] Last Admin: 09/29/16 22:24 Dose: Not Given - Labs Labs: 09/28/16 19:37 09/28/16 19:37 PT 16.7 SECONDS (9.7-12.2) H 09/28/16 19:37 INR 1.5 09/28/16 19:37 APTT 30 SECONDS (21-34) 09/28/16 19:37 Assessment and Plan (1) Abdominal pain Status: Acute (2) Complicated urinary tract infection Status: Acute (3) Creatinine elevation Status: Acute (4) Cancer of cervix Status: Chronic (5) Colostomy in place Status: Chronic (6) HIV (human immunodeficiency virus infection) Status: Chronic (7) Deep venous thrombosis of lower extremity Status: Acute
--- NOTE | 2016-09-30 15:38 | CP.PCM.DIS ---
Provider - Provider Date of Admission: 09/25/16 18:17 Attending physician: Lamberto Vega MD Time Spent in preparation of Discharge (in minutes): 20 Diagnosis - Discharge Diagnosis (1) Other mechanical complication of nephrostomy catheter, sequela Status: Acute (2) Hydronephrosis of left kidney Status: Chronic (3) Hydronephrosis of right kidney Status: Chronic (4) Intractable pain Status: Acute (5) Pyelonephritis, acute Status: Acute (6) AIDS Status: Chronic (7) History of depression Status: Chronic (8) History of uterine cancer Status: Chronic (9) Renal insufficiency Status: Chronic Hospital Course - Lab Results Lab Results: Micro Results 09/25/16 18:20 Blood Blood Culture - Preliminary NO GROWTH AFTER 4 DAYS 09/25/16 Unknown Urine Urine Culture - Final Pseudomonas Aeruginosa 09/26/16 Unknown Urine,Clean Catch Urine Culture - Final 50-100,000 CFU/ML. MULTIPLE SPECIES. SUGGEST REPEAT SPECIMEM. Most Recent Lab Values WBC 6.0 K/uL (4.8-10.8) 09/28/16 19:37 RBC 3.99 Mil/uL (3.80-5.20) 09/28/16 19:37 Hgb 10.4 g/dL (11.0-16.0) L 09/28/16 19:37 Hct 33.3 % (34.0-47.0) L 09/28/16 19:37 MCV 83.3 fL (81.0-99.0) 09/28/16 19:37 MCH 25.9 pg (27.0-31.0) L 09/28/16 19:37 MCHC 31.1 g/dL (33.0-37.0) L 09/28/16 19:37 RDW 17.4 % (11.5-14.5) H 09/28/16 19:37 Plt Count 184 K/uL (130-400) 09/28/16 19:37 MPV 9.8 fL (7.2-11.7) 09/28/16 19:37 Neut % (Auto) 54.4 % (50.0-75.0) 09/28/16 19:37 Lymph % (Auto) 36.5 % (20.0-40.0) 09/28/16 19:37 [place] % (Auto) 7.5 % (0.0-10.0) 09/28/16 19:37 Eos % (Auto) 1.1 % (0.0-4.0) 09/28/16 19:37 Baso % (Auto) 0.5 % (0.0-2.0) 09/28/16 19:37 Neut # 3.2 K/uL (1.8-7.0) 09/28/16 19:37 Lymph # 2.2 K/uL (1.0-4.3) 09/28/16 19:37 [place] # 0.4 K/uL (0.0-0.8) 09/28/16 19:37 Eos # 0.1 K/uL (0.0-0.7) 09/28/16 19:37 Baso # 0.0 K/uL (0.0-0.2) 09/28/16 19:37 PT 16.7 SECONDS (9.7-12.2) H 09/28/16 19:37 INR 1.5 09/28/16 19:37 APTT 30 SECONDS (21-34) 09/28/16 19:37 Sodium 140 mmol/L (132-148) 09/28/16 19:37 Potassium 4.3 mmol/L (3.6-5.2) 09/28/16 19:37 Chloride 105 mmol/L (98-107) 09/28/16 19:37 Carbon Dioxide 21 mmol/L (22-30) L 09/28/16 19:37 Anion Gap 18 (10-20) 09/28/16 19:37 BUN 28 mg/dL (7-17) H 09/28/16 19:37 Creatinine 1.4 MG/DL (0.7-1.2) H 09/28/16 19:37 Est GFR ( Amer) 47 09/28/16 19:37 Est GFR (Non-Af Amer) 38 09/28/16 19:37 Random Glucose 88 mg/dL (65-105) 09/28/16 19:37 Calcium 8.5 mg/dl (8.6-10.4) L 09/28/16 19:37 Total Bilirubin 0.3 mg/dL (0.2-1.3) 09/26/16 07:36 Direct Bilirubin 0.3 mg/dL (0.0-0.4) 09/26/16 07:36 AST 18 U/L (14-36) 09/26/16 07:36 ALT 16 U/L (9-52) 09/26/16 07:36 Alkaline Phosphatase 54 U/L (38-126) 09/26/16 07:36 Total Protein 6.6 g/dL (6.3-8.3) 09/26/16 07:36 Albumin 3.3 g/dL (3.5-5.0) L 09/26/16 07:36 Globulin 3.3 gm/dL (2.2-3.9) 09/26/16 07:36 Albumin/Globulin Ratio 1.0 (1.0-2.1) 09/26/16 07:36 Urine Color Red (YELLOW) 09/26/16 22:11 Urine Clarity Hazy (Clear) 09/26/16 22:11 Urine pH 7.0 (5.0-8.0) 09/26/16 22:11 Ur Specific [place] 1.011 (1.003-1.030) 09/26/16 22:11 Urine Protein 2+ mg/dL (NEGATIVE) H 09/26/16 22:11 Urine Glucose (UA) Normal mg/dL (Normal) 09/26/16 22:11 Urine Ketones Negative mg/dL (NEGATIVE) 09/26/16 22:11 Urine Blood 3+ (NEGATIVE) H 09/26/16 22:11 Urine Nitrate Negative (NEGATIVE) 09/26/16 22:11 Urine Bilirubin Negative (NEGATIVE) 09/26/16 22:11 Urine Urobilinogen Normal mg/dL (0.2-1.0) 09/26/16 22:11 Ur Leukocyte Esterase 3+ Pete/uL (Negative) H 09/26/16 22:11 Urine WBC (Auto) 1378 /hpf (0-5) H 09/26/16 22:11 Urine RBC (Auto) 3277 /hpf (0-3) H 09/26/16 22:11 Urine WBC Clumps (Auto) Many /hpf (NONE) H 09/26/16 22:11 Ur Squamous Epith Cells 3 /hpf (0-5) 09/26/16 22:11 Urine Bacteria Mod (<OCC) H 09/26/16 22:11 Absolute Lymphs (Flow) 2047 Cells/mcL (850-3900) 09/26/16 07:36 % CD4 Cells 27 Percent (30-61) L 09/26/16 07:36 Absolute CD4 Count 547 Cells/mcL (490-1740) 09/26/16 07:36 T-Help/Suppress Ratio 0.63 Ratio (0.86-5.00) L 09/26/16 07:36 % CD8 Cells 43 Percent (12-42) H 09/26/16 07:36 Absolute CD8 Count 873 Cells/mcL (180-1170) 09/26/16 07:36 HIV-1 RNA Qnt (RT-PCR) <1.30 not detected (<1.30) 09/26/16 07:36 - Hospital Course Hospital Course: infected nephrostomy, seen by senior electrical project manager, had cysto, hydrated, iv antibiotic with ID help Discharge Exam - Head Exam Head Exam: ATRAUMATIC - Eye Exam Eye Exam: EOMI - ENT Exam ENT Exam: Mucous Membranes Moist - Neck Exam Neck exam: Full Rom - Respiratory Exam Respiratory Exam: Clear to PA & Lateral - Cardiovascular Exam Cardiovascular Exam: REGULAR RHYTHM - GI/Abdominal Exam GI & Abdominal Exam: Normal Bowel Sounds. absent: Organomegaly - Rectal Exam Rectal Exam: Deferred - Extremities Exam Extremities exam: normal capillary refill - Neurological Exam Neurological exam: Alert, Oriented x3 - Psychiatric Exam Psychiatric exam: Normal Mood - Skin Skin Exam: Dry Discharge Plan - Follow Up Plan Condition: GUARDED Disposition: HOME/ ROUTINE Additional Instructions: Please f/u with Dr. Vega office in 1 week F/u with Dr. Mitzy Romeo office in 2 week - call for appointment Resume all home medications Continue cipro x 5 days- take with food
[2016-09-30 16:20] VITALS: BP 165/89; PULSE 76; TEMP 97.8; O2SAT 96
== END 2016-09-30 18:31 | disposition home or self-care (01) | DRG 569 ==
LOC: C.ER 15:42 → C.9E 18:17 → C.5T 23:45
PROVIDERS: ADMIT Internal Medicine Cardiovascular Disease; ATTEND Internal Medicine Cardiovascular Disease
PROC: BT10ZZZ Fluoroscopy of Bladder (ICD-10-PCS; principal; 2016-09-28 15:15)
PROC: 0TJB8ZZ Inspection of Bladder, Via Natural or Artificial Opening Endoscopic (ICD-10-PCS; 2016-09-28 15:15)
DX: N13.6 Pyonephrosis (principal); B20 Human immunodeficiency virus [HIV] disease; A41.9 Sepsis, unspecified organism; I82.409 Acute embolism and thrombosis of unspecified deep veins of unspecified lower extremity; J44.9 Chronic obstructive pulmonary disease, unspecified; N13.70 Vesicoureteral-reflux, unspecified; F32.9 Major depressive disorder, single episode, unspecified; K29.70 Gastritis, unspecified, without bleeding; D50.9 Iron deficiency anemia, unspecified; C53.9 Malignant neoplasm of cervix uteri, unspecified; Z93.3 Colostomy status; N18.9 Chronic kidney disease, unspecified; Z85.42 Personal history of malignant neoplasm of other parts of uterus; Z87.891 Personal history of nicotine dependence

== ENCOUNTER 2016-10-25 12:44 | Inpatient (IN) | payer MEDICAID ==
[2016-10-25 12:44] VITALS: BMI 23.7
[2016-10-25] MEDS ORDERED: Sodium Chloride 0.9% 1,000 ML IV ONE (13:59)
[2016-10-25] MEDS ORDERED: Sodium Chloride 0.9% 1,000 ML ONE (14:12)
[2016-10-25] MEDS ORDERED: Morphine 4 MG/ML VIAL ONE ×2 (14:12→18:25)
[2016-10-25] MEDS ORDERED: Iohexol 240 (50 ml) PO ONE (14:24)
[2016-10-25 14:28] LABS: BASO % 0.3 % (0.0-2.0); EOS % 0.1 % (0.0-4.0); HEMATOCRIT 36.3 % (34.0-47.0); LYMPH % 7.9 % (20.0-40.0); MEAN CELL VOLUME 82.4 fL (81.0-99.0); MEAN CORPUSCULAR HEMOGLOBIN 26.2 pg (27.0-31.0); MEAN CORPUSCULAR HGB CONC 31.8 g/dL (33.0-37.0); MEAN PLATELET VOLUME 9.7 fL (7.2-11.7); MONO # 0.4 K/uL (0.0-0.8); MONO % 3.4 % (0.0-10.0); PLATELET COUNT 205 K/uL (130-400); RED CELL DISTRIBUTION WIDTH 17.9 % (11.5-14.5); WHITE BLOOD COUNT 12.2 K/uL (4.8-10.8)
[2016-10-25 14:35] LABS: POTASSIUM 4.5 mmol/L (3.6-5.2)
[2016-10-25 14:37] LABS: ALB/GLOB RATIO 1.2 (1.0-2.1); BILIRUBIN,TOTAL 0.7 mg/dL (0.2-1.3); CALCIUM 9.2 mg/dl (8.6-10.4); TOTAL PROTEIN 7.9 g/dL (6.3-8.3)
[2016-10-25] MEDS ORDERED: Iohexol 240 (50 ml) ONE (14:43)
[2016-10-25 14:50] LABS: EOSINOPHIL 1 % (0-4); NEUTROPHIL 80 % (50-75); TOTAL CELLS COUNTED 100
[2016-10-25 14:51] LABS: LARGE PLATELETS PRESENT
--- NOTE | 2016-10-25 15:08 | C.PDOC ---
History Of Present Illness 61 y/o female presents to the ED with complains of mid and epigastric abdominal pain increasing to severe since last night. Pt has history or cervical cancer, operated on 2001; s/p radiation and bilateral renal stents 2 years ago. Pt also reports nausea and vomiting. Denies diarrhea, fever, urinary symptoms or any other complaints. Time Seen by Provider: 10/25/16 13:26 Chief Complaint (Nursing): Abdominal Pain History Per: Patient History/Exam Limitations: no limitations Onset/Duration Of Symptoms: Hrs Current Symptoms Are (Timing): Worse Severity: Severe Location Of Pain/Discomfort: Epigastric Radiation Of Pain To:: None Quality Of Discomfort: "Pain" Associated Symptoms: Nausea, Vomiting. denies: Fever, Chest Pain, Urinary Symptoms Exacerbating Factors: None Alleviating Factors: None Recent travel outside of the [place]: No Past Medical History Reviewed: Historical Data, Nursing Documentation, Vital Signs Vital Signs: Last Vital Signs Temp 98.1 F 10/25/16 18:10 Pulse 74 10/25/16 18:10 Resp 18 10/25/16 18:10 BP 160/71 H 10/25/16 18:10 Pulse Ox 98 10/25/16 19:32 - Medical History PMH: Anemia, Anxiety, Arthritis, Asthma, CHF, COPD, Depression (secondary to cindy HIV from her male partner), Gastritis, HIV ("private"), HTN, Hypercholesterolemia, Hyperlipidemia, Kidney Stones, Malignancy (Cervical (2000) ), Osteoporosis, Pancreatitis, Peripheral Edema, Chronic Kidney Disease (SEE COMMENTS) Surgical History: Cholecystectomy, Endoscopy - [facility] Procedures CHANGE DRAINAGE DEVICE IN KIDNEY, EXTERNAL APPROACH (07/18/16) CYSTOSCOPY NEC (08/07/14) DILATION OF LEFT COMMON ILIAC VEIN, PERCUTANEOUS APPROACH (05/04/16) DILATION OF LEFT FEMORAL VEIN, PERCUTANEOUS APPROACH (05/04/16) FLUOROSCOPY OF BLADDER (09/25/16) INSERTION OF INTRALUM DEV INTO INF VENA CAVA, PERC APPROACH (05/04/16) INSERTION OF TOTALLY IMPLANTABLE VASC ACCESS DEVIC (10/02/03) INSPECTION OF BLADDER, ENDO (09/25/16) INTRAVENOUS PYELOGRAM (09/03/14) INTRODUCE OTH THROMBOLYTIC IN PERIPH VEIN, PERC (05/04/16) NEPHROSTOMY (06/26/14) PACKED CELL TRANSFUSION (11/20/14) PLAIN RADIOGRAPHY OF INFERIOR VENA CAVA USING OTHER CONTRAST (05/04/16) REMOV URETERAL DRAIN (09/26/14) REPLACE NEPHROSTOMY TUBE (10/31/14) RETROGRADE PYELOGRAM (01/15/15) URETERAL CATHETERIZATION (01/15/15) VAGINOSCOPY (05/30/14) VULVAR BIOPSY (02/07/14) Family History: States: Unknown Family Hx - Social History Hx Tobacco Use: No Hx Alcohol Use: No Hx Substance Use: No - Immunization History Hx Tetanus Toxoid Vaccination: Yes (2011) Hx Influenza Vaccination: Yes (04/2016) Hx Pneumococcal Vaccination: Yes (2011) Review Of Systems Constitutional: Negative for: Fever Cardiovascular: Negative for: Chest Pain Respiratory: Negative for: Shortness of Breath Gastrointestinal: Positive for: Nausea, Vomiting, Abdominal Pain. Negative for : Diarrhea Genitourinary: Negative for: Dysuria, Hematuria Physical Exam - Physical Exam Appears: Non-toxic Skin: Warm, Dry, No Rash Head: Atraumatic, Normacephalic Oral Mucosa: Moist Neck: Normal ROM Chest: Symmetrical Cardiovascular: Rhythm Regular, No Murmur Respiratory: Normal Breath Sounds, No Wheezing Gastrointestinal/Abdominal: Soft, Tenderness (mid upper tenderness), No Guarding , No Rebound, Other (GI distress; abdominal colostomy RLQ) Extremity: Normal ROM Extremity: Bilateral: Atraumatic Neurological/Psych: Oriented x3 ED Course And Treatment - Laboratory Results Result Diagrams: 10/25/16 14:22 10/25/16 14:22 ECG: Interpreted By Wa ECG Rhythm: Sinus Rhythm ECG Interpretation: No Acute Changes Rate From EC O2 Sat by Pulse Oximetry: 98 (on room air) Pulse Ox Interpretation: Normal - CT Scan/US Abd Pelv Other Rad Studies (CT/US): Radiology Report Reviewed CT/US Interpretation: IMPRESSION: Abnormal distended loop of thick walled small bowel in the mid abdomen with evidence of fecalization ; appearance worrisome for closed loop bowel obstruction. Prominent proximal small bowel loops are evident. Correlate clinically. Bilateral percutaneous nephrostomy tubes with persistent hydroureteronephrosis. Stable appearance of abnormal, crescent shaped soft tissue in the posterior pelvis, in the presacral space, most likely representing chronic post operative and post radiation scarring. Biliary ductal dilatation which may be secondary to cholecystectomy. Nonspecific thickened urinary bladder wall may be exaggerated by under distension however cystitis cannot be excluded. Medical Decision Making Medical Decision Making: Plan: * CT abdomen * fluids * labs * UA * morphine, pepcid, toradol, zofran Result discussed with pt, will need admission for further treatment Case discussed with and admitted to dr Bi Barahona who requested dr Angulo surg consult Case discussed with her as well as vice president tax Disposition - Disposition Disposition: HOSPITALIZED Disposition Time: 19:30 Condition: FAIR - Clinical Impression Clinical Impression: Abdominal pain in female, Hx of nephrostomy, Small bowel obstruction - Scribe Statement The provider has reviewed the documentation as recorded by the Tomeka Bonilla Provider Attestation: All medical record entries made by the Tomeka were at my direction and personally dictated by me. I have reviewed the chart and agree that the record accurately reflects my personal performance of the history, physical exam, medical decision making, and the department course for this patient. I have also personally directed, reviewed, and agree with the discharge instructions and disposition. Decision To Admit - Pt Status Changed To: Hospital Disposition Of: Inpatient - Admit Certification Admit to Inpatient:: After my assessment, the patient will require hospitalization for at least two midnights. This is because of the severity of symptoms shown, intensity of services needed, and/or the medical risk in this patient being treated as an outpatient. - InPatient: Physician Admission Certification:: see note - . Bed Request Type: Regular Admitting Physician: Marty Barahona Patient Diagnosis: Abdominal pain in female, Hx of nephrostomy, Small bowel obstruction
[2016-10-25] MEDS ORDERED: Morphine 4 MG/ML VIAL IV ONE (18:23)
--- NOTE | 2016-10-25 18:31 | CT ---
PROCEDURE: CT Abdomen and Pelvis without IV contrast. HISTORY: abd pain COMPARISON: CT abdomen and pelvis with without contrast performed 09/25/16 TECHNIQUE: Contiguous axial images of the abdomen and pelvis. Oral contrast was administered. No IV contrast given. Coronal and Sagittal reformats generated and reviewed. Radiation dose: Total exam DLP = 404.08 mGy-cm. This CT exam was performed using one or more of the following dose reduction techniques: Automated exposure control, adjustment of the mA and/or kV according to patient size, and/or use of iterative reconstruction technique. FINDINGS: There is limited evaluation of the solid organs without the administration of IV contrast. LOWER THORAX: Bilateral lower lobe infiltrates. There is no visible pleural effusion or pneumothorax. LIVER: Unremarkable unenhanced appearance. GALLBLADDER AND BILE DUCTS: Cholecystectomy. Dilated common bile duct measuring approximately 13 mm. Mild intrahepatic biliary ductal dilatation. PANCREAS: Unremarkable unenhanced appearance. SPLEEN: Unremarkable unenhanced appearance. ADRENALS: Unremarkable unenhanced appearance. KIDNEYS AND URETERS: Bilateral percutaneous nephrostomy tubes. Stable bilateral hydroureteronephrosis. BLADDER: Thick-walled under distended urinary bladder. REPRODUCTIVE: Uterus is absent consistent with hysterectomy. APPENDIX: Not visualized. BOWEL: The stomach is nondistended. Sigmoid colostomy, left anterior pelvic wall. Pelvis rectal pouch. Abnormal distended loop of walled small bowel in the mid abdomen evidence of fecalization ; appearance worrisome for closed loop bowel obstruction. Prominent proximal small bowel loops are evident. PERITONEUM: No significant free fluid. No definite free air. LYMPH NODES: Enlarged mesenteric and retroperitoneal lymph nodes, nonspecific. VASCULATURE: IVC filter. Atherosclerotic calcifications. No aortic aneurysm. BONES: Mild sclerosis of the sacrum possibly related to radiation. Osseous demineralization. Degenerative changes. No acute osseous abnormality is detected. OTHER FINDINGS: Stable appearance of abnormal, crescent shaped soft tissue in the posterior pelvis, in the presacral space, most likely representing chronic post operative and post radiation scarring. IMPRESSION: Abnormal distended loop of thick walled small bowel in the mid abdomen with evidence of fecalization ; appearance worrisome for closed loop bowel obstruction. Prominent proximal small bowel loops are evident. Correlate clinically. Bilateral percutaneous nephrostomy tubes with persistent hydroureteronephrosis. Stable appearance of abnormal, crescent shaped soft tissue in the posterior pelvis, in the presacral space, most likely representing chronic post operative and post radiation scarring. Biliary ductal dilatation which may be secondary to cholecystectomy. Nonspecific thickened urinary bladder wall may be exaggerated by under distension however cystitis cannot be excluded. Bilateral lower lobe infiltrates. Additional findings as above. Findings discussed with Dr. Harris on 10/25/16 at 6:25 p.m.
[2016-10-25] MEDS ORDERED: HYDROmorphone 0.5 mg/0.5 ml ISec IVP STA (19:35)
[2016-10-25] MEDS ORDERED: HYDROmorphone 1 mg/ml ISec ONE (19:43)
[2016-10-25 19:48] LABS: RBC URINE 342 /hpf (0-3); URINE BACTERIA MOD (<OCC); URINE BILIRUBIN NEGATIVE (NEGATIVE); URINE BLOOD 2+ (NEGATIVE); URINE GLUCOSE (UA) NORMAL (Normal); URINE KETONE NEGATIVE (NEGATIVE); URINE LEUKOCYTE ESTERASE 3+ Leu/uL (Negative); URINE PROTEIN 2+ mg/dL (NEGATIVE); URINE UROBILINOGEN NORMAL mg/dL (0.2-1.0); WBC CLUMPS MANY /hpf; WBC URINE 1803 /hpf (0-5)
[2016-10-25 20:14] LABS: URINE COLOR YELLOW (YELLOW)
[2016-10-25] MEDS ORDERED: Dextrose 5%/0.45% NS 1,000 ML IV SCH (20:45)
--- NOTE | 2016-10-26 00:21 | CP.PCM.CON ---
History of Present Illness - History of Present Illness History of Present Illness: Surgery for Dr. Angulo 61 y/o female w pmh of HIV, cervical ca, s/p chemoradiation in 2000, hysterectomy, Ex lap colostomy for radiation enterocolitis 2009 at [facility], ileostomy in 2010 at [facility], b/l nephrostomy presents to the ED with complains of epigastric abdominal pain increasing to severe since last night. Pt also reports nausea and vomiting a few time. Non bilious, non bloody. Denies diarrhea, fever, urinary symptoms or any other complaints. Pt reports that ostomy is functioning. Also c/o decreased appetite and last time she ate was soup yesterday. She had similar episodes in the past x3. CT showed closed loop thicken wall SBO on mid abd . WBC12 Review of Systems - Review of Systems Review of Systems: See HPI - Constitutional Constitutional: absent: Chills Past Patient History - Infectious Disease Hx of Infectious Diseases: None - Past Medical History & Family History Past Medical History?: Yes - Past Social History Smoking Status: Former Smoker - CARDIAC Hx Congestive Heart Failure: Yes Hx Hypercholesterolemia: Yes Hx Hypertension: Yes Hx Peripheral Edema: Yes - PULMONARY Hx Asthma: Yes Hx Chronic Obstructive Pulmonary Disease (COPD): Yes - NEUROLOGICAL Hx Neurological Disorder: Yes (SEE COMMENT) Hx Syncope: Yes (10 yrs unknown reason) Other/Comment: HEADACHES - HEENT Hx HEENT Problems: Yes (SEE COMMENT) Hx Cataracts: Yes (BILATERAL) - RENAL Hx Chronic Kidney Disease: Yes (SEE COMMENTS) Hx Kidney Stones: Yes - ENDOCRINE/METABOLIC Hx Endocrine Disorders: No - HEMATOLOGICAL/ONCOLOGICAL Hx Anemia: Yes Hx Human Immunodeficiency Virus (HIV): Yes ("private") - INTEGUMENTARY Hx Dermatological Problems: Yes (SEE COMMENT) Other/Comment: Colostomy, Nephrostomy - MUSCULOSKELETAL/RHEUMATOLOGICAL Hx Falls: No - GASTROINTESTINAL Hx Gastritis: Yes Hx Pancreatitis: Yes - GENITOURINARY/GYNECOLOGICAL Hx Genitourinary Disorders: Yes Hx Cervical Cancer: Yes Hx Hematuria: Yes Hx Urinary Tract Infection: Yes Other/Comment: ureteral stent in both kidneys - changed Q3 months. bilateral nephrostomy tubes(2013) last changed 05/27 - PSYCHIATRIC Hx Anxiety: Yes Hx Depression: Yes (secondary to cindy HIV from her male partner) Hx Substance Use: No - SURGICAL HISTORY Hx Cholecystectomy: Yes - ANESTHESIA Hx Anesthesia: Yes Hx Anesthesia Reactions: Yes (Hard to wake up even with sedation) Hx Malignant Hyperthermia: Yes (prev surgery, rt for uterine ca) Meds Allergies/Adverse Reactions: Allergies Allergy/AdvReac Type Severity Reaction Status Date / Time sulfamethoxazole Allergy Intermediate ITCHING Verified 10/25/16 13:09 [From Bactrim] aloe vera Allergy ITCHING Verified 10/25/16 13:09 Sulfa (Sulfonamide Allergy ITCHING Verified 10/25/16 13:09 Antibiotics) - Medications Medications: Current Medications Acetaminophen (Tylenol 650 Mg Supp) 650 mg [place] Q4 PRN PRN Reason: Fever >100.4 F Hydromorphone HCl (Dilaudid) 0.5 mg IVP Q6H PRN PRN Reason: Pain, moderate (4-7) Dextrose/Sodium Chloride (Dextrose 5%/0.45% Ns 1000 Ml) 1,000 mls @ 125 mls/hr IV .Q8H [facility] Last Admin: 10/25/16 21:01 Dose: 125 mls/hr Ondansetron HCl (Zofran Inj) 4 mg IVP Q4 PRN PRN Reason: Nausea/Vomiting Last Admin: 10/25/16 21:08 Dose: 4 mg Pneumococcal Polyvalent Vaccine (Pneumovax 23 Vaccine) 0.5 ml IM .ONCE ONE Stop: 10/27/16 10:01 Physical Exam - Constitutional Appears: No Acute Distress - Head Exam Head Exam: ATRAUMATIC, NORMAL INSPECTION, NORMOCEPHALIC - Eye Exam Eye Exam: EOMI, Normal appearance, PERRL Pupil Exam: NORMAL ACCOMODATION, PERRL - ENT Exam ENT Exam: Mucous Membranes Moist, Normal Exam - Neck Exam Neck exam: Positive for: Normal Inspection - Respiratory Exam Respiratory Exam: Clear to Auscultation Bilateral, NORMAL BREATHING PATTERN. absent: Accessory Muscle Use, Respiratory Distress - Cardiovascular Exam Cardiovascular Exam: REGULAR RHYTHM - GI/Abdominal Exam GI & Abdominal Exam: Normal Bowel Sounds, Soft, Tenderness. absent: Distended, Firm, Guarding, Hernia, Mass, Pulsatile Mass, Rebound, Rigid Additional comments: Ileostomy: pink patent. no signs of infection. Well healed scars - Exam Exam: NORMAL INSPECTION Additional comments: b/l nephrostomy - Extremities Exam Extremities exam: Positive for: full ROM, normal inspection - Back Exam Back exam: NORMAL INSPECTION - Neurological Exam Neurological exam: Alert, CN II-XII Intact, Normal Gait, Oriented x3, Reflexes Normal - Psychiatric Exam Psychiatric exam: Normal Affect, Normal Mood - Skin Skin Exam: Dry, Intact, Normal Color, Warm Results - Vital Signs Recent Vital Signs: Last Vital Signs Temp 98.0 F 10/25/16 21:45 Pulse 77 10/25/16 21:45 Resp 21 10/25/16 21:45 BP 152/80 H 10/25/16 21:45 Pulse Ox 95 10/25/16 21:45 - Labs Result Diagrams: 10/25/16 14:22 10/25/16 14:22 Assessment & Plan - Assessment and Plan (Free Text) Assessment: SBO -NPO -Zofran -IVF -NGT if vomits: Pt refuses -Serial abd exam -We will closely monitor -Encourage ambulation Will SHASHI Angulo
[2016-10-26] MEDS: Cefepime IV 1 gm in Dextrose 50 ML IVPB SCH ×2 (01:20→14:39)
[2016-10-26] MEDS: HYDROmorphone 0.5 mg/0.5 ml ISec IVP PRN ×4 (02:09→23:15)
[2016-10-26] MEDS: metroNIDAZOLE IV 500 mg/100 ml 100 ML IVPB SCH ×2 (02:11→14:36)
[2016-10-26 08:01] LABS: EOS % 0.3 % (0.0-4.0); MEAN CORPUSCULAR HEMOGLOBIN 25.9 pg (27.0-31.0); NRBC % 0.1 % (0.0-2.0); RED CELL DISTRIBUTION WIDTH 17.4 % (11.5-14.5)
[2016-10-26 08:08] LABS: POTASSIUM 4.5 mmol/L (3.6-5.2)
[2016-10-26 08:11] LABS: ALB/GLOB RATIO 1.1 (1.0-2.1); BILIRUBIN,TOTAL 1.2 mg/dL (0.2-1.3); CALCIUM 7.6 mg/dl (8.6-10.4); TOTAL PROTEIN 6.9 g/dL (6.3-8.3)
[2016-10-26 08:16] LABS: BASO % 0.1 % (0.0-2.0); HEMATOCRIT 34.6 % (34.0-47.0); LYMPH # 1.3 K/uL (1.0-4.3); LYMPH % 10.5 % (20.0-40.0); MEAN CELL VOLUME 83.4 fL (81.0-99.0); MEAN PLATELET VOLUME 11.1 fL (7.2-11.7); MONO # 0.6 K/uL (0.0-0.8); MONO % 5.4 % (0.0-10.0)
--- NOTE | 2016-10-26 11:44 | CARD ---
APPROVED REPORT EKG Measurement Heart [id number] <Conclusion> Normal sinus rhythm Normal ECG
--- NOTE | 2016-10-26 18:47 | CP.PCM.PN ---
Subjective - Date & Time of Evaluation Date of Evaluation: 10/26/16 Time of Evaluation: 10:40 - Subjective Subjective: clinically same Objective - Vital Signs/Intake and Output Vital Signs (last 24 hours): Temp Pulse Resp BP Pulse Ox 98.8 F 101 H 20 104/67 95 10/26/16 16:00 10/26/16 16:00 10/26/16 16:00 10/26/16 16:00 10/26/16 16:00 Intake and Output: 10/26/16 10/26/16 06:59 18:59 Intake Total 1000 Output Total 1525 Balance -525 - Medications Medications: Current Medications Acetaminophen (Tylenol 650 Mg Supp) 650 mg SD Q4 PRN PRN Reason: Fever >100.4 F Hydromorphone HCl (Dilaudid) 0.5 mg IVP Q6H PRN PRN Reason: Pain, moderate (4-7) Last Admin: 10/26/16 17:14 Dose: 0.5 mg Potassium Chloride 20 meq/ (Sodium Chloride) 1,010 mls @ 75 mls/hr IV .[id number] [facility] Last Admin: 10/26/16 13:16 Dose: Not Given Cefepime HCl (Maxipime Iv 1 Gm Premix) 50 mls @ 100 mls/hr IVPB Q12H [facility] Last Admin: 10/26/16 14:39 Dose: 100 mls/hr Metronidazole (Flagyl) 100 mls @ 100 mls/hr IVPB Q12H [facility] Last Admin: 10/26/16 14:36 Dose: 100 mls/hr Metoclopramide HCl (Reglan) 10 mg IVP Q8 [facility] Last Admin: 10/26/16 13:16 Dose: Not Given Ondansetron HCl (Zofran Inj) 4 mg IVP Q4 PRN PRN Reason: Nausea/Vomiting Last Admin: 10/26/16 06:31 Dose: 4 mg Pantoprazole Sodium (Protonix Inj) 40 mg IVP DAILY [facility] Last Admin: 10/26/16 09:25 Dose: 40 mg Pneumococcal Polyvalent Vaccine (Pneumovax 23 Vaccine) 0.5 ml IM .ONCE ONE Stop: 10/27/16 10:01 - Labs Labs: 10/26/16 07:49 10/26/16 07:49 - Constitutional Appears: Well - Head Exam Head Exam: ATRAUMATIC, NORMAL INSPECTION, NORMOCEPHALIC - Eye Exam Eye Exam: EOMI, Normal appearance, PERRL Pupil Exam: NORMAL ACCOMODATION, PERRL - ENT Exam ENT Exam: Mucous Membranes Moist, Normal Exam - Neck Exam Neck Exam: Full ROM, Normal Inspection. absent: Lymphadenopathy - Respiratory Exam Respiratory Exam: Decreased Breath Sounds - Cardiovascular Exam Cardiovascular Exam: REGULAR RHYTHM, +S1, +S2 - GI/Abdominal Exam GI & Abdominal Exam: Soft, Diminished Bowel Sounds - Rectal Exam Rectal Exam: Deferred Assessment and Plan (1) PERFECTO (acute kidney injury) Status: Acute (2) Abdominal pain Status: Acute (3) Abdominal pain in female Status: Acute (4) Acute diarrhea Status: Acute (5) Asthma exacerbation, mild Status: Acute (6) CHF (congestive heart failure) Status: Acute (7) Chest pain Status: Acute (8) Chest pain Status: Acute (9) Complicated urinary tract infection Status: Acute (10) Complication of nephrostomy Status: Acute (11) Creatinine elevation Status: Acute (12) Deep venous thrombosis of lower extremity Status: Acute (13) Diarrhea Status: Acute (14) Fever Status: Acute (15) Flank pain Status: Acute (16) Headache Status: Acute (17) Hematuria Status: Acute (18) Hydronephrosis Status: Acute (19) 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 (20) Hydroureteronephrosis Status: Acute (21) Infection associated with nephrostomy catheter Status: Acute (22) Intractable pain Status: Acute (23) Malfunction of nephrostomy tube Status: Acute (24) Other mechanical complication of nephrostomy catheter, sequela Status: Acute (25) Pancreatitis Status: Acute (26) Prophylactic measure Status: Acute (27) Pyelonephritis Status: Acute (28) Pyelonephritis, acute Status: Acute (29) Renal colic Status: Acute (30) Small bowel obstruction Status: Acute (31) UTI (lower urinary tract infection) Status: Acute (32) Urinary tract infection Status: Acute (33) AIDS Status: Chronic (34) Anemia Status: Chronic (35) Asthma Status: Chronic (36) Back pain Status: Chronic (37) Cancer of cervix Status: Chronic (38) Colostomy in place Status: Chronic (39) HIV (human immunodeficiency virus infection) Status: Chronic (40) HIV disease Status: Chronic (41) HTN (hypertension) Status: Chronic (42) History of depression Status: Chronic (43) History of uterine cancer Status: Chronic (44) Hx of nephrostomy Status: Chronic (45) Hydronephrosis of left kidney Status: Chronic (46) Hydronephrosis of right kidney Status: Chronic (47) Hyperlipidemia Status: Chronic (48) Immunocompromised state Status: Chronic (49) Renal insufficiency Status: Chronic - Assessment and Plan (Free Text) Plan: Consult GI Consult general surgeon CT showed closed loop thickened wall SBO on mid abdomen Dilaudid IV fluid Maxipime Flagyl Zofran Protonix
[2016-10-27] MEDS: Cefepime IV 1 gm in Dextrose 50 ML IVPB SCH ×2 (00:24→12:11)
[2016-10-27] MEDS: metroNIDAZOLE IV 500 mg/100 ml 100 ML IVPB SCH ×2 (01:15→13:11)
--- NOTE | 2016-10-27 02:14 | CON ---
DATE: 10/26/2016 HISTORY OF PRESENT ILLNESS: A 61-year-old female with a complex medical history, admitted to [facility] ([facility] with severe abdominal pain and referred for infectious disease evaluation for antibiotic man agement. 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 Currently, she denies fever, but does have severe abdo paty pain on and off intermittently. She has an NG tube placed, which has relieved some of her pain and discomfort. She was found to have small-bowel obstruction and was seen in consultation by Dr. Karen yoon, who plans conservative therapy. The patient has a complex medical history which includes HIV infection and cervical cancer status post chemoradiation in 2000, hysterectomy, exploratory laparotom y, colostomy with radiation enterocolitis 2009 at [facility], ileostomy in 2010 at [facility], bilateral nephrostomy tubes. REVIEW OF SYSTEMS: Positive for nausea, vomiting. No blood. No diarrhea, no fever. No urinary sym ptoms at this time, decreased oral intake, weight loss, fatigue, malaise. FAMILY HISTORY: Noncontributory. MEDICATIONS: Dilaudid, Flagyl, Maxipime, potassium chloride, , ondansetron. ALLERGIES: BACTRIM, SULFA, ALOE VERA. REVIEW OF SYSTEMS: As per HPI. PHYSICAL EXAMINATION: GENERAL: Reveals chronically ill female, awake, responsive. VITAL SIGNS: T-max 99, blood pressure 130/70, pulse 76, respiratory rate 16. HEENT: Normocephalic, atraumatic. Nasogastric tube in place. NECK: No JVD, no thyromegaly. CHEST: Symmetrical expansion. LUNGS: Decreased breath sounds. HEART: S1, S2. ABDOMEN: Distended. Bowel sounds diminished. Positive bilateral nephrostomy tubes in place, gauze from previous surgery and ileostomy noted. No rebound. Positive tenderness. RECTAL: Deferred. EXTREMITIES: Reveal no joint deformities. Pulses palpable. NEUROLOGIC: Cranial nerves II-XII intact. Motor and sensory within normal limits. SENSORY EXAMINATION: . Pulses diminished. LABORATORY DATA: Revealed BUN and creatinine 16 and 1.3, red blood cells 7.8, hemoglobin 10, platele t count 265,000. Blood cultures, urine cultures pending. Chest x-ray: No active pulmonary disease. CT abdomen consistent with obstruction, small bowel, ileus. IMPRESSION: A 61-year-old female with history of HIV, currently off highly active antiretroviral the rapy because of n.p.o. Nasogastric tube in place to low intermittent suction. PLAN: No oral antiviral therapy can be administered at this time. Last T-cell count was adequate. The patient likely has strictures and will need conservative management and follow up. Await results of cultures including blood and urine. We will follow along with you and add further recommendation s. Continue current IV antibiotic therapy as noted. Will discuss further with you and add further r ecommendations. Dionisio Segura MD cc: [id number] TT: 10/27/2016 02:13:55 Confirmation # [id number] Dictation # [id number] mn
[2016-10-27] MEDS ORDERED: Pneumococcal 23-Valent Vaccine IM ONE ×2 (10:00→14:00)
--- NOTE | 2016-10-27 17:06 | CP.PCM.PN ---
Subjective - Date & Time of Evaluation Date of Evaluation: 10/27/16 Time of Evaluation: 10:40 - Subjective Subjective: clinically same Objective - Vital Signs/Intake and Output Vital Signs (last 24 hours): Temp Pulse Resp BP Pulse Ox 98 F 88 20 111/70 96 10/27/16 08:00 10/27/16 16:16 10/27/16 08:00 10/27/16 08:00 10/27/16 08:00 Intake and Output: 10/27/16 10/27/16 06:59 18:59 Intake Total 1230 Output Total 850 Balance 380 - Medications Medications: Current Medications Acetaminophen (Tylenol 650 Mg Supp) 650 mg [place] Q4 PRN PRN Reason: Fever >100.4 F Hydromorphone HCl (Dilaudid) 0.5 mg IVP Q6H PRN PRN Reason: Pain, moderate (4-7) Last Admin: 10/26/16 23:15 Dose: 0.5 mg Potassium Chloride 20 meq/ (Sodium Chloride) 1,010 mls @ 75 mls/hr IV .[id number] [facility] Last Admin: 10/27/16 13:13 Dose: 75 mls/hr Cefepime HCl (Maxipime Iv 1 Gm Premix) 50 mls @ 100 mls/hr IVPB Q12H [facility] Last Admin: 10/27/16 12:11 Dose: 100 mls/hr Metronidazole (Flagyl) 100 mls @ 100 mls/hr IVPB Q12H [facility] Last Admin: 10/27/16 13:11 Dose: 100 mls/hr Metoclopramide HCl (Reglan) 10 mg IVP Q8 [facility] Last Admin: 10/27/16 13:33 Dose: 10 mg Ondansetron HCl (Zofran Inj) 4 mg IVP Q4 PRN PRN Reason: Nausea/Vomiting Last Admin: 10/26/16 19:49 Dose: 4 mg Pantoprazole Sodium (Protonix Inj) 40 mg IVP DAILY [facility] Last Admin: 10/27/16 10:42 Dose: 40 mg - Labs Labs: 10/26/16 07:49 10/26/16 07:49 - Constitutional Appears: Well - Head Exam Head Exam: ATRAUMATIC, NORMAL INSPECTION, NORMOCEPHALIC - Eye Exam Eye Exam: EOMI, Normal appearance, PERRL Pupil Exam: NORMAL ACCOMODATION, PERRL - ENT Exam ENT Exam: Mucous Membranes Moist, Normal Exam - Neck Exam Neck Exam: Full ROM, Normal Inspection. absent: Lymphadenopathy - Respiratory Exam Respiratory Exam: Decreased Breath Sounds - Cardiovascular Exam Cardiovascular Exam: REGULAR RHYTHM, +S1, +S2 - GI/Abdominal Exam GI & Abdominal Exam: Soft, Diminished Bowel Sounds - Rectal Exam Rectal Exam: Deferred Assessment and Plan (1) PERFECTO (acute kidney injury) Status: Acute (2) Abdominal pain Status: Acute (3) Abdominal pain in female Status: Acute (4) Acute diarrhea Status: Acute (5) Asthma exacerbation, mild Status: Acute (6) CHF (congestive heart failure) Status: Acute (7) Chest pain Status: Acute (8) Chest pain Status: Acute (9) Complicated urinary tract infection Status: Acute (10) Complication of nephrostomy Status: Acute (11) Creatinine elevation Status: Acute (12) Deep venous thrombosis of lower extremity Status: Acute (13) Diarrhea Status: Acute (14) Fever Status: Acute (15) Flank pain Status: Acute (16) Headache Status: Acute (17) Hematuria Status: Acute (18) Hydronephrosis Status: Acute (19) 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 (20) Hydroureteronephrosis Status: Acute (21) Infection associated with nephrostomy catheter Status: Acute (22) Intractable pain Status: Acute (23) Malfunction of nephrostomy tube Status: Acute (24) Other mechanical complication of nephrostomy catheter, sequela Status: Acute (25) Pancreatitis Status: Acute (26) Prophylactic measure Status: Acute (27) Pyelonephritis Status: Acute (28) Pyelonephritis, acute Status: Acute (29) Renal colic Status: Acute (30) Small bowel obstruction Status: Acute (31) UTI (lower urinary tract infection) Status: Acute (32) Urinary tract infection Status: Acute (33) AIDS Status: Chronic (34) Anemia Status: Chronic (35) Asthma Status: Chronic (36) Back pain Status: Chronic (37) Cancer of cervix Status: Chronic (38) Colostomy in place Status: Chronic (39) HIV (human immunodeficiency virus infection) Status: Chronic (40) HIV disease Status: Chronic (41) HTN (hypertension) Status: Chronic (42) History of depression Status: Chronic (43) History of uterine cancer Status: Chronic (44) Hx of nephrostomy Status: Chronic (45) Hydronephrosis of left kidney Status: Chronic (46) Hydronephrosis of right kidney Status: Chronic (47) Hyperlipidemia Status: Chronic (48) Immunocompromised state Status: Chronic (49) Renal insufficiency Status: Chronic - Assessment and Plan (Free Text) Plan: Continue same General surgery consult GI on board NG tube clamp Patient is requesting to remove NGT Continue Zofran Continue IV fluids Mobilize patient
--- NOTE | 2016-10-27 17:16 | CP.PCM.PN ---
Subjective - Date & Time of Evaluation Date of Evaluation: 10/27/16 Time of Evaluation: 15:10 - Subjective Subjective: General Surgery Dr. Angulo Pt S&E @bedside. NAEO. requesting to have NGT removed. having ostomy output. reports abd softer and less painful than admission. pt tolerating sips and chips. denies F/C, N/V, CP, SOB. Objective - Vital Signs/Intake and Output Vital Signs (last 24 hours): Temp Pulse Resp BP Pulse Ox 98 F 88 20 111/70 96 10/27/16 08:00 10/27/16 16:16 10/27/16 08:00 10/27/16 08:00 10/27/16 08:00 Intake and Output: 10/27/16 10/27/16 06:59 18:59 Intake Total 1230 Output Total 850 Balance 380 - Medications Medications: Current Medications Acetaminophen (Tylenol 650 Mg Supp) 650 mg [place] Q4 PRN PRN Reason: Fever >100.4 F Hydromorphone HCl (Dilaudid) 0.5 mg IVP Q6H PRN PRN Reason: Pain, moderate (4-7) Last Admin: 10/26/16 23:15 Dose: 0.5 mg Potassium Chloride 20 meq/ (Sodium Chloride) 1,010 mls @ 75 mls/hr IV .[id number] [facility] Last Admin: 10/27/16 13:13 Dose: 75 mls/hr Cefepime HCl (Maxipime Iv 1 Gm Premix) 50 mls @ 100 mls/hr IVPB Q12H [facility] Last Admin: 10/27/16 12:11 Dose: 100 mls/hr Metronidazole (Flagyl) 100 mls @ 100 mls/hr IVPB Q12H [facility] Last Admin: 10/27/16 13:11 Dose: 100 mls/hr Metoclopramide HCl (Reglan) 10 mg IVP Q8 [facility] Last Admin: 10/27/16 13:33 Dose: 10 mg Ondansetron HCl (Zofran Inj) 4 mg IVP Q4 PRN PRN Reason: Nausea/Vomiting Last Admin: 10/26/16 19:49 Dose: 4 mg Pantoprazole Sodium (Protonix Inj) 40 mg IVP DAILY [facility] Last Admin: 10/27/16 10:42 Dose: 40 mg - Labs Labs: 10/26/16 07:49 10/26/16 07:49 - Constitutional Appears: Non-toxic, No Acute Distress - Head Exam Head Exam: NORMAL INSPECTION - Eye Exam Eye Exam: Normal appearance - ENT Exam Additional comments: NGT in place. dark output present - Respiratory Exam Respiratory Exam: NORMAL BREATHING PATTERN. absent: Accessory Muscle Use, Respiratory Distress - GI/Abdominal Exam GI & Abdominal Exam: Soft. absent: Distended, Tenderness Additional comments: stoma patent stool present at colostomy site. - Neurological Exam Neurological Exam: Alert, Awake, Oriented x3 - Psychiatric Exam Psychiatric exam: Normal Affect, Normal Mood - Skin Skin Exam: Dry, Intact, Normal Color, Warm Assessment and Plan - Assessment and Plan (Free Text) Assessment: 61 y/o F w/ SBO - NGT clamped - CLD for dinner - may remove NGT if tolerates CLD - cont Zofran - cont IVF - Serial abd exam - monitor ostomy output - Encourage OOB to chair/Amb Pt discussed w/ Dr. Kev Rosales DO PGY1
--- NOTE | 2016-10-27 19:07 | CP.PCM.PN ---
Subjective - Date & Time of Evaluation Date of Evaluation: 10/27/16 Time of Evaluation: 09:00 - Subjective Subjective: + SBO cultures pending cont rx may need lysis of adhesions Objective - Vital Signs/Intake and Output Vital Signs (last 24 hours): Temp Pulse Resp BP Pulse Ox 98 F 88 20 111/70 96 10/27/16 08:00 10/27/16 16:16 10/27/16 08:00 10/27/16 08:00 10/27/16 08:00 Intake and Output: 10/27/16 10/28/16 18:59 06:59 Intake Total 1100 Output Total 1275 Balance -175 - Medications Medications: Current Medications Acetaminophen (Tylenol 650 Mg Supp) 650 mg [place] Q4 PRN PRN Reason: Fever >100.4 F Hydromorphone HCl (Dilaudid) 0.5 mg IVP Q6H PRN PRN Reason: Pain, moderate (4-7) Last Admin: 10/26/16 23:15 Dose: 0.5 mg Potassium Chloride 20 meq/ (Sodium Chloride) 1,010 mls @ 75 mls/hr IV .[id number] [facility] Last Admin: 10/27/16 13:13 Dose: 75 mls/hr Cefepime HCl (Maxipime Iv 1 Gm Premix) 50 mls @ 100 mls/hr IVPB Q12H [facility] Last Admin: 10/27/16 12:11 Dose: 100 mls/hr Metronidazole (Flagyl) 100 mls @ 100 mls/hr IVPB Q12H [facility] Last Admin: 10/27/16 13:11 Dose: 100 mls/hr Metoclopramide HCl (Reglan) 10 mg IVP Q8 [facility] Last Admin: 10/27/16 13:33 Dose: 10 mg Ondansetron HCl (Zofran Inj) 4 mg IVP Q4 PRN PRN Reason: Nausea/Vomiting Last Admin: 10/26/16 19:49 Dose: 4 mg Pantoprazole Sodium (Protonix Inj) 40 mg IVP DAILY [facility] Last Admin: 10/27/16 10:42 Dose: 40 mg - Labs Labs: 10/26/16 07:49 10/26/16 07:49 - Constitutional Appears: Non-toxic, Chronically Ill - Head Exam Head Exam: NORMOCEPHALIC - Eye Exam Eye Exam: PERRL. absent: Scleral icterus - ENT Exam ENT Exam: Mucous Membranes Dry - Neck Exam Neck Exam: absent: Lymphadenopathy - Respiratory Exam Respiratory Exam: Decreased Breath Sounds, Clear to Ausculation Bilateral - Cardiovascular Exam Cardiovascular Exam: REGULAR RHYTHM, +S1, +S2 - GI/Abdominal Exam GI & Abdominal Exam: Distended, Soft. absent: Tenderness - Rectal Exam Rectal Exam: Deferred - Exam Exam: NORMAL INSPECTION - Extremities Exam Extremities Exam: absent: Pedal Edema - Back Exam Back Exam: absent: CVA tenderness (L), CVA tenderness (R)
[2016-10-27] MEDS: HYDROmorphone 0.5 mg/0.5 ml ISec IVP PRN (21:30)
[2016-10-28] MEDS: Cefepime IV 1 gm in Dextrose 50 ML IVPB SCH ×2 (00:03→13:15)
[2016-10-28] MEDS: metroNIDAZOLE IV 500 mg/100 ml 100 ML IVPB SCH ×2 (01:45→13:19)
[2016-10-28 11:12] LABS: BASO % 0.3 % (0.0-2.0); EOS # 0.2 K/uL (0.0-0.7); EOS % 1.7 % (0.0-4.0); HEMATOCRIT 34.4 % (34.0-47.0); LYMPH # 1.4 K/uL (1.0-4.3); LYMPH % 15.7 % (20.0-40.0); MEAN CELL VOLUME 83.6 fL (81.0-99.0); MEAN CORPUSCULAR HEMOGLOBIN 25.9 pg (27.0-31.0); MEAN PLATELET VOLUME 10.3 fL (7.2-11.7); MONO # 0.7 K/uL (0.0-0.8); MONO % 8.1 % (0.0-10.0); RED CELL DISTRIBUTION WIDTH 17.5 % (11.5-14.5)
[2016-10-28 11:29] LABS: CHLORIDE 106 mmol/L (98-107); POTASSIUM 4.2 mmol/L (3.6-5.2); SODIUM 141 mmol/L (132-148)
[2016-10-28 11:31] LABS: ALB/GLOB RATIO 1.1 (1.0-2.1); AST/SGOT 21 U/L (14-36); BILIRUBIN,TOTAL 0.6 mg/dL (0.2-1.3); CARBON DIOXIDE 21 mmol/L (22-30); GFR AFRICAN-AMERICAN > 60; TOTAL PROTEIN 7.3 g/dL (6.3-8.3)
[2016-10-28 11:32] LABS: ALKALINE PHOSPHATASE 61 U/L (38-126); ALT/SGPT 17 U/L (9-52); BLOOD UREA NITROGEN 16 mg/dL (7-17); CALCIUM 8.2 mg/dl (8.6-10.4); GLUCOSE,RANDOM 141 mg/dL (65-105); PHOSPHOROUS 2.2 mg/dL (2.5-4.5)
--- NOTE | 2016-10-28 11:40 | CP.PCM.PN ---
Subjective - Date & Time of Evaluation Date of Evaluation: 10/28/16 Time of Evaluation: 07:00 - Subjective Subjective: Gen Surg: Dr. Angulo Patient seen and examined. Tolerated NGT clamp trial over night. No n/v. +stool in ostomy bag. Will advance diet. Objective - Vital Signs/Intake and Output Vital Signs (last 24 hours): Temp Pulse Resp BP Pulse Ox 98.2 F 101 H 21 173/97 H 95 10/28/16 08:25 10/28/16 08:25 10/28/16 08:25 10/28/16 08:25 10/28/16 08:25 Intake and Output: 10/28/16 10/28/16 06:59 18:59 Intake Total 1200 Output Total 375 Balance 825 - Medications Medications: Current Medications Acetaminophen (Tylenol 650 Mg Supp) 650 mg [place] Q4 PRN PRN Reason: Fever >100.4 F Hydromorphone HCl (Dilaudid) 0.5 mg IVP Q6H PRN PRN Reason: Pain, moderate (4-7) Last Admin: 10/27/16 21:30 Dose: 0.5 mg Potassium Chloride 20 meq/ (Sodium Chloride) 1,010 mls @ 75 mls/hr IV .[id number] [facility] Last Admin: 10/27/16 16:40 Dose: Not Given Cefepime HCl (Maxipime Iv 1 Gm Premix) 50 mls @ 100 mls/hr IVPB Q12H [facility] Last Admin: 10/28/16 00:03 Dose: 100 mls/hr Metronidazole (Flagyl) 100 mls @ 100 mls/hr IVPB Q12H [facility] Last Admin: 10/28/16 01:45 Dose: 100 mls/hr Metoclopramide HCl (Reglan) 10 mg IVP Q8 [facility] Last Admin: 10/28/16 06:03 Dose: 10 mg Ondansetron HCl (Zofran Inj) 4 mg IVP Q4 PRN PRN Reason: Nausea/Vomiting Last Admin: 10/26/16 19:49 Dose: 4 mg Pantoprazole Sodium (Protonix Inj) 40 mg IVP DAILY [facility] Last Admin: 10/27/16 10:42 Dose: 40 mg - Labs Labs: 10/28/16 11:04 10/28/16 11:04 - Constitutional Appears: No Acute Distress - Head Exam Head Exam: NORMOCEPHALIC - Eye Exam Eye Exam: Normal appearance - ENT Exam ENT Exam: Mucous Membranes Moist - Respiratory Exam Respiratory Exam: NORMAL BREATHING PATTERN - Cardiovascular Exam Cardiovascular Exam: +S1, +S2 - GI/Abdominal Exam GI & Abdominal Exam: Soft. absent: Distended, Tenderness - Neurological Exam Neurological Exam: Alert, Awake, Oriented x3 - Psychiatric Exam Psychiatric exam: Normal Mood - Skin Skin Exam: Dry, Intact Assessment and Plan - Assessment and Plan (Free Text) Assessment: 61F w/ SBO; resolved -NGT removed -Advance diet as tolerated -cont Zofran - Serial abd exam - monitor ostomy output - Encourage OOB to chair/Amb -Dw Dr. Angulo
--- NOTE | 2016-10-28 14:24 | CP.PCM.PN ---
Subjective - Date & Time of Evaluation Date of Evaluation: 10/28/16 Time of Evaluation: 10:40 - Subjective Subjective: clinically same Objective - Vital Signs/Intake and Output Vital Signs (last 24 hours): Temp Pulse Resp BP Pulse Ox 98.2 F 101 H 21 173/97 H 95 10/28/16 08:25 10/28/16 08:25 10/28/16 08:25 10/28/16 08:25 10/28/16 08:25 Intake and Output: 10/28/16 10/28/16 06:59 18:59 Intake Total 1200 Output Total 375 Balance 825 - Medications Medications: Current Medications Acetaminophen (Tylenol 650 Mg Supp) 650 mg [place] Q4 PRN PRN Reason: Fever >100.4 F Hydromorphone HCl (Dilaudid) 0.5 mg IVP Q6H PRN PRN Reason: Pain, moderate (4-7) Last Admin: 10/27/16 21:30 Dose: 0.5 mg Potassium Chloride 20 meq/ (Sodium Chloride) 1,010 mls @ 75 mls/hr IV .[id number] [facility] Last Admin: 10/27/16 16:40 Dose: Not Given Cefepime HCl (Maxipime Iv 1 Gm Premix) 50 mls @ 100 mls/hr IVPB Q12H [facility] Last Admin: 10/28/16 13:15 Dose: 100 mls/hr Metronidazole (Flagyl) 100 mls @ 100 mls/hr IVPB Q12H [facility] Last Admin: 10/28/16 13:19 Dose: 100 mls/hr Metoclopramide HCl (Reglan) 10 mg IVP Q8 [facility] Last Admin: 10/28/16 13:15 Dose: 10 mg Ondansetron HCl (Zofran Inj) 4 mg IVP Q4 PRN PRN Reason: Nausea/Vomiting Last Admin: 10/26/16 19:49 Dose: 4 mg Pantoprazole Sodium (Protonix Inj) 40 mg IVP DAILY [facility] Last Admin: 10/28/16 11:00 Dose: 40 mg - Labs Labs: 10/28/16 11:04 10/28/16 11:04 - Constitutional Appears: Well - Head Exam Head Exam: ATRAUMATIC, NORMAL INSPECTION, NORMOCEPHALIC - Eye Exam Eye Exam: EOMI, Normal appearance, PERRL Pupil Exam: NORMAL ACCOMODATION, PERRL - ENT Exam ENT Exam: Mucous Membranes Moist, Normal Exam - Neck Exam Neck Exam: Full ROM, Normal Inspection. absent: Lymphadenopathy - Respiratory Exam Respiratory Exam: Decreased Breath Sounds - Cardiovascular Exam Cardiovascular Exam: REGULAR RHYTHM, +S1, +S2 - GI/Abdominal Exam GI & Abdominal Exam: Soft, Diminished Bowel Sounds - Rectal Exam Rectal Exam: Deferred Assessment and Plan (1) PERFECTO (acute kidney injury) Status: Acute (2) Abdominal pain Status: Acute (3) Abdominal pain in female Status: Acute (4) Acute diarrhea Status: Acute (5) Asthma exacerbation, mild Status: Acute (6) CHF (congestive heart failure) Status: Acute (7) Chest pain Status: Acute (8) Chest pain Status: Acute (9) Complicated urinary tract infection Status: Acute (10) Complication of nephrostomy Status: Acute (11) Creatinine elevation Status: Acute (12) Deep venous thrombosis of lower extremity Status: Acute (13) Diarrhea Status: Acute (14) Fever Status: Acute (15) Flank pain Status: Acute (16) Headache Status: Acute (17) Hematuria Status: Acute (18) Hydronephrosis Status: Acute (19) 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 (20) Hydroureteronephrosis Status: Acute (21) Infection associated with nephrostomy catheter Status: Acute (22) Intractable pain Status: Acute (23) Malfunction of nephrostomy tube Status: Acute (24) Other mechanical complication of nephrostomy catheter, sequela Status: Acute (25) Pancreatitis Status: Acute (26) Prophylactic measure Status: Acute (27) Pyelonephritis Status: Acute (28) Pyelonephritis, acute Status: Acute (29) Renal colic Status: Acute (30) Small bowel obstruction Status: Acute (31) UTI (lower urinary tract infection) Status: Acute (32) Urinary tract infection Status: Acute (33) AIDS Status: Chronic (34) Anemia Status: Chronic (35) Asthma Status: Chronic (36) Back pain Status: Chronic (37) Cancer of cervix Status: Chronic (38) Colostomy in place Status: Chronic (39) HIV (human immunodeficiency virus infection) Status: Chronic (40) HIV disease Status: Chronic (41) HTN (hypertension) Status: Chronic (42) History of depression Status: Chronic (43) History of uterine cancer Status: Chronic (44) Hx of nephrostomy Status: Chronic (45) Hydronephrosis of left kidney Status: Chronic (46) Hydronephrosis of right kidney Status: Chronic (47) Hyperlipidemia Status: Chronic (48) Immunocompromised state Status: Chronic (49) Renal insufficiency Status: Chronic - Assessment and Plan (Free Text) Plan: Surgery consult Continue cefepime and Flagyl Reglan Dilaudid Ostomy output Dr. Angulo
--- NOTE | 2016-10-28 18:38 | CP.PCM.PN ---
Subjective - Date & Time of Evaluation Date of Evaluation: 10/28/16 Time of Evaluation: 06:00 - Subjective Subjective: diet advanced Tolerated NGT clamp trial over night. No n/v. +stool in ostomy bag Objective - Vital Signs/Intake and Output Vital Signs (last 24 hours): Temp Pulse Resp BP Pulse Ox 98.5 F 85 20 153/84 H 97 10/28/16 15:33 10/28/16 16:54 10/28/16 15:33 10/28/16 15:33 10/28/16 15:33 Intake and Output: 10/28/16 10/28/16 06:59 18:59 Intake Total 1200 Output Total 375 Balance 825 - Medications Medications: Current Medications Acetaminophen (Tylenol 650 Mg Supp) 650 mg [place] Q4 PRN PRN Reason: Fever >100.4 F Cefepime HCl (Maxipime Iv 1 Gm Premix) 50 mls @ 100 mls/hr IVPB Q12H [facility] Last Admin: 10/28/16 13:15 Dose: 100 mls/hr Metronidazole (Flagyl) 100 mls @ 100 mls/hr IVPB Q12H [facility] Last Admin: 10/28/16 13:19 Dose: 100 mls/hr Potassium Chloride 20 meq/ (Sodium Chloride) 1,010 mls @ 75 mls/hr IV .[id number] [facility] Stop: 10/29/16 16:01 Last Admin: 10/28/16 17:24 Dose: 75 mls/hr Metoclopramide HCl (Reglan) 10 mg IVP Q8 [facility] Last Admin: 10/28/16 13:15 Dose: 10 mg Ondansetron HCl (Zofran Inj) 4 mg IVP Q4 PRN PRN Reason: Nausea/Vomiting Last Admin: 10/26/16 19:49 Dose: 4 mg Pantoprazole Sodium (Protonix Inj) 40 mg IVP DAILY [facility] Last Admin: 10/28/16 11:00 Dose: 40 mg Simethicone (Mylicon Chew Tab) 80 mg PO Q6 PRN PRN Reason: gas/bloating - Labs Labs: 10/28/16 11:04 10/28/16 11:04 - Constitutional Appears: Non-toxic, Cachectic, Chronically Ill - Head Exam Head Exam: NORMOCEPHALIC - Eye Exam Eye Exam: absent: Scleral icterus - ENT Exam ENT Exam: Mucous Membranes Dry - Neck Exam Neck Exam: absent: Lymphadenopathy - Respiratory Exam Respiratory Exam: Decreased Breath Sounds, Rhonchi - Cardiovascular Exam Cardiovascular Exam: REGULAR RHYTHM, +S1, +S2 - GI/Abdominal Exam GI & Abdominal Exam: Distended, Soft - Rectal Exam Rectal Exam: Deferred - Extremities Exam Extremities Exam: absent: Pedal Edema - Back Exam Back Exam: absent: CVA tenderness (L), CVA tenderness (R) - Neurological Exam Neurological Exam: Alert, Awake, Oriented x3 Assessment and Plan - Assessment and Plan (Free Text) Plan: S/P SBO- ADHESIONS CULTURES SO FAR NEG HIV MEDS RE-ORDERED PER DR Bi MCHUGH
[2016-10-28] MEDS: HYDROmorphone 0.5 mg/0.5 ml ISec IVP PRN (19:49)
[2016-10-28] MEDS: Simethicone 80 mg Chewtab PO PRN (19:51)
[2016-10-29] MEDS: Cefepime IV 1 gm in Dextrose 50 ML IVPB SCH ×2 (01:25→14:03)
[2016-10-29] MEDS: metroNIDAZOLE IV 500 mg/100 ml 100 ML IVPB SCH ×2 (01:26→14:03)
[2016-10-29] MEDS: HYDROmorphone 0.5 mg/0.5 ml ISec IVP PRN ×2 (01:56→19:56)
[2016-10-29] MEDS: Simethicone 80 mg Chewtab PO PRN (10:23)
--- NOTE | 2016-10-29 13:38 | CP.PCM.PN ---
Subjective - Date & Time of Evaluation Date of Evaluation: 10/29/16 Time of Evaluation: 10:40 - Subjective Subjective: clinically same Objective - Vital Signs/Intake and Output Vital Signs (last 24 hours): Temp Pulse Resp BP Pulse Ox 98.3 F 80 20 162/93 H 95 10/29/16 08:01 10/29/16 08:01 10/29/16 08:01 10/29/16 08:01 10/29/16 08:01 Intake and Output: 10/29/16 10/29/16 06:59 18:59 Intake Total 1040 1050 Output Total 650 Balance 390 1050 - Medications Medications: Current Medications Acetaminophen (Tylenol 650 Mg Supp) 650 mg [place] Q4 PRN PRN Reason: Fever >100.4 F Dicyclomine HCl (Bentyl) 20 mg PO TID [facility] Last Admin: 10/29/16 10:23 Dose: 20 mg Hydromorphone HCl (Dilaudid) 0.5 mg IVP Q6H PRN PRN Reason: Pain, moderate (4-7) Last Admin: 10/29/16 01:56 Dose: 0.5 mg Cefepime HCl (Maxipime Iv 1 Gm Premix) 50 mls @ 100 mls/hr IVPB Q12H [facility] Last Admin: 10/29/16 01:25 Dose: 100 mls/hr Metronidazole (Flagyl) 100 mls @ 100 mls/hr IVPB Q12H [facility] Last Admin: 10/29/16 01:26 Dose: 100 mls/hr Potassium Chloride 20 meq/ (Sodium Chloride) 1,010 mls @ 75 mls/hr IV .[id number] [facility] Stop: 10/29/16 16:01 Last Admin: 10/29/16 05:41 Dose: 75 mls/hr Metoclopramide HCl (Reglan) 10 mg IVP Q8 [facility] Last Admin: 10/29/16 05:35 Dose: 10 mg Ondansetron HCl (Zofran Inj) 4 mg IVP Q4 PRN PRN Reason: Nausea/Vomiting Last Admin: 10/26/16 19:49 Dose: 4 mg Pantoprazole Sodium (Protonix Inj) 40 mg IVP DAILY [facility] Last Admin: 10/29/16 10:24 Dose: 40 mg Simethicone (Mylicon Chew Tab) 80 mg PO Q6 PRN PRN Reason: gas/bloating Last Admin: 10/29/16 10:23 Dose: 80 mg - Labs Labs: 10/28/16 11:04 10/28/16 11:04 - Constitutional Appears: Well - Head Exam Head Exam: ATRAUMATIC, NORMAL INSPECTION, NORMOCEPHALIC - Eye Exam Eye Exam: EOMI, Normal appearance, PERRL Pupil Exam: NORMAL ACCOMODATION, PERRL - ENT Exam ENT Exam: Mucous Membranes Moist, Normal Exam - Neck Exam Neck Exam: Full ROM, Normal Inspection. absent: Lymphadenopathy - Respiratory Exam Respiratory Exam: Decreased Breath Sounds - Cardiovascular Exam Cardiovascular Exam: REGULAR RHYTHM, +S1, +S2 - GI/Abdominal Exam GI & Abdominal Exam: Soft - Rectal Exam Rectal Exam: Deferred Assessment and Plan (1) PERFECTO (acute kidney injury) Status: Acute (2) Abdominal pain Status: Acute (3) Abdominal pain in female Status: Acute (4) Acute diarrhea Status: Acute (5) Asthma exacerbation, mild Status: Acute (6) CHF (congestive heart failure) Status: Acute (7) Chest pain Status: Acute (8) Chest pain Status: Acute (9) Complicated urinary tract infection Status: Acute (10) Complication of nephrostomy Status: Acute (11) Creatinine elevation Status: Acute (12) Deep venous thrombosis of lower extremity Status: Acute (13) Diarrhea Status: Acute (14) Fever Status: Acute (15) Flank pain Status: Acute (16) Headache Status: Acute (17) Hematuria Status: Acute (18) Hydronephrosis Status: Acute (19) 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 (20) Hydroureteronephrosis Status: Acute (21) Infection associated with nephrostomy catheter Status: Acute (22) Intractable pain Status: Acute (23) Malfunction of nephrostomy tube Status: Acute (24) Other mechanical complication of nephrostomy catheter, sequela Status: Acute (25) Pancreatitis Status: Acute (26) Prophylactic measure Status: Acute (27) Pyelonephritis Status: Acute (28) Pyelonephritis, acute Status: Acute (29) Renal colic Status: Acute (30) Small bowel obstruction Status: Acute (31) UTI (lower urinary tract infection) Status: Acute (32) Urinary tract infection Status: Acute (33) AIDS Status: Chronic (34) Anemia Status: Chronic (35) Asthma Status: Chronic (36) Back pain Status: Chronic (37) Cancer of cervix Status: Chronic (38) Colostomy in place Status: Chronic (39) HIV (human immunodeficiency virus infection) Status: Chronic (40) HIV disease Status: Chronic (41) HTN (hypertension) Status: Chronic (42) History of depression Status: Chronic (43) History of uterine cancer Status: Chronic (44) Hx of nephrostomy Status: Chronic (45) Hydronephrosis of left kidney Status: Chronic (46) Hydronephrosis of right kidney Status: Chronic (47) Hyperlipidemia Status: Chronic (48) Immunocompromised state Status: Chronic (49) Renal insufficiency Status: Chronic - Assessment and Plan (Free Text) Plan: Surgery consult Ambulate the patient Patient tolerating liquid Labs reviewed Continue Flagyl and cefepime Continue Zofran and Reglan Advance diet
--- NOTE | 2016-10-29 14:56 | CP.PCM.PN ---
Subjective - Date & Time of Evaluation Date of Evaluation: 10/29/16 Time of Evaluation: 08:00 - Subjective Subjective: GENERAL SURGERY PROGRESS NOTE FOR DR. ELIZABETH Patient seen and examined at bedside. She states that she is doing well, and only has mild epigastric abdominal pain. She has been ambulating. She is tolerating her full liquid diet and denies nausea or vomiting. She is having output into the ostomy. Objective - Vital Signs/Intake and Output Vital Signs (last 24 hours): Temp Pulse Resp BP Pulse Ox 98.3 F 80 20 162/93 H 95 10/29/16 08:01 10/29/16 08:01 10/29/16 08:01 10/29/16 08:01 10/29/16 08:01 Intake and Output: 10/29/16 10/29/16 06:59 18:59 Intake Total 1040 1050 Output Total 650 200 Balance 390 850 - Medications Medications: Current Medications Acetaminophen (Tylenol 650 Mg Supp) 650 mg [place] Q4 PRN PRN Reason: Fever >100.4 F Dicyclomine HCl (Bentyl) 20 mg PO TID [facility] Last Admin: 10/29/16 14:05 Dose: 20 mg Hydromorphone HCl (Dilaudid) 0.5 mg IVP Q6H PRN PRN Reason: Pain, moderate (4-7) Last Admin: 10/29/16 01:56 Dose: 0.5 mg Cefepime HCl (Maxipime Iv 1 Gm Premix) 50 mls @ 100 mls/hr IVPB Q12H [facility] Last Admin: 10/29/16 14:03 Dose: 100 mls/hr Metronidazole (Flagyl) 100 mls @ 100 mls/hr IVPB Q12H [facility] Last Admin: 10/29/16 14:03 Dose: 100 mls/hr Potassium Chloride 20 meq/ (Sodium Chloride) 1,010 mls @ 75 mls/hr IV .[id number] [facility] Stop: 10/29/16 16:01 Last Admin: 10/29/16 05:41 Dose: 75 mls/hr Metoclopramide HCl (Reglan) 10 mg IVP Q8 [facility] Last Admin: 10/29/16 14:04 Dose: 10 mg Ondansetron HCl (Zofran Inj) 4 mg IVP Q4 PRN PRN Reason: Nausea/Vomiting Last Admin: 10/26/16 19:49 Dose: 4 mg Pantoprazole Sodium (Protonix Inj) 40 mg IVP DAILY [facility] Last Admin: 10/29/16 10:24 Dose: 40 mg Simethicone (Mylicon Chew Tab) 80 mg PO Q6 PRN PRN Reason: gas/bloating Last Admin: 10/29/16 10:23 Dose: 80 mg - Labs Labs: 10/28/16 11:04 10/28/16 11:04 - Constitutional Appears: Non-toxic, No Acute Distress - Eye Exam Eye Exam: EOMI, Normal appearance - Respiratory Exam Respiratory Exam: NORMAL BREATHING PATTERN. absent: Respiratory Distress - Cardiovascular Exam Cardiovascular Exam: +S1, +S2 - GI/Abdominal Exam GI & Abdominal Exam: Soft. absent: Distended, Firm, Guarding, Rigid, Tenderness , Rebound Additional comments: Stool in ostomy bag - Neurological Exam Neurological Exam: Alert, Awake, Oriented x3 - Psychiatric Exam Psychiatric exam: Normal Affect, Normal Mood - Skin Skin Exam: Dry, Normal Color, Warm Assessment and Plan - Assessment and Plan (Free Text) Assessment: 61yo F with SBO, now resolved - Having regular output into ostomy - Tolerating full liquid diet - Advanced to regular diet - Discussed plan with Dr. Kev Boyle PGY-2
[2016-10-30] MEDS: metroNIDAZOLE IV 500 mg/100 ml 100 ML IVPB SCH ×2 (01:52→14:35)
[2016-10-30] MEDS: HYDROmorphone 0.5 mg/0.5 ml ISec IVP PRN ×3 (01:52→21:35)
[2016-10-30] MEDS: Cefepime IV 1 gm in Dextrose 50 ML IVPB SCH (01:52)
--- NOTE | 2016-10-30 11:35 | CP.PCM.PN ---
Subjective - Date & Time of Evaluation Date of Evaluation: 10/30/16 Time of Evaluation: 10:40 - Subjective Subjective: clinically same Objective - Vital Signs/Intake and Output Vital Signs (last 24 hours): Temp Pulse Resp BP Pulse Ox 97.7 F 84 20 169/106 H 96 10/30/16 08:00 10/30/16 08:00 10/30/16 08:00 10/30/16 08:00 10/30/16 08:00 Intake and Output: 10/30/16 10/30/16 06:59 18:59 Intake Total 390 Output Total 1050 Balance -660 - Medications Medications: Current Medications Acetaminophen (Tylenol 650 Mg Supp) 650 mg [place] Q4 PRN PRN Reason: Fever >100.4 F Dicyclomine HCl (Bentyl) 20 mg PO TID [facility] Last Admin: 10/30/16 09:27 Dose: 20 mg Hydromorphone HCl (Dilaudid) 0.5 mg IVP Q6H PRN PRN Reason: Pain, moderate (4-7) Last Admin: 10/30/16 01:52 Dose: 0.5 mg Cefepime HCl (Maxipime Iv 1 Gm Premix) 50 mls @ 100 mls/hr IVPB Q12H [facility] Last Admin: 10/30/16 01:52 Dose: 100 mls/hr Metronidazole (Flagyl) 100 mls @ 100 mls/hr IVPB Q12H [facility] Last Admin: 10/30/16 01:52 Dose: 100 mls/hr Metoclopramide HCl (Reglan) 10 mg IVP Q8 [facility] Last Admin: 10/30/16 05:15 Dose: 10 mg Ondansetron HCl (Zofran Inj) 4 mg IVP Q4 PRN PRN Reason: Nausea/Vomiting Last Admin: 10/26/16 19:49 Dose: 4 mg Pantoprazole Sodium (Protonix Inj) 40 mg IVP DAILY [facility] Last Admin: 10/30/16 09:27 Dose: 40 mg Simethicone (Mylicon Chew Tab) 80 mg PO Q6 PRN PRN Reason: gas/bloating Last Admin: 10/29/16 10:23 Dose: 80 mg - Labs Labs: 10/28/16 11:04 10/28/16 11:04 - Constitutional Appears: Well - Head Exam Head Exam: ATRAUMATIC, NORMAL INSPECTION, NORMOCEPHALIC - Eye Exam Eye Exam: EOMI, Normal appearance, PERRL Pupil Exam: NORMAL ACCOMODATION, PERRL - ENT Exam ENT Exam: Mucous Membranes Moist, Normal Exam - Neck Exam Neck Exam: Full ROM, Normal Inspection. absent: Lymphadenopathy - Respiratory Exam Respiratory Exam: Decreased Breath Sounds - Cardiovascular Exam Cardiovascular Exam: REGULAR RHYTHM, +S1, +S2 - GI/Abdominal Exam GI & Abdominal Exam: Soft, Diminished Bowel Sounds - Rectal Exam Rectal Exam: Deferred Assessment and Plan (1) PERFECTO (acute kidney injury) Status: Acute (2) Abdominal pain Status: Acute (3) Abdominal pain in female Status: Acute (4) Acute diarrhea Status: Acute (5) Asthma exacerbation, mild Status: Acute (6) CHF (congestive heart failure) Status: Acute (7) Chest pain Status: Acute (8) Chest pain Status: Acute (9) Complicated urinary tract infection Status: Acute (10) Complication of nephrostomy Status: Acute (11) Creatinine elevation Status: Acute (12) Deep venous thrombosis of lower extremity Status: Acute (13) Diarrhea Status: Acute (14) Fever Status: Acute (15) Flank pain Status: Acute (16) Headache Status: Acute (17) Hematuria Status: Acute (18) Hydronephrosis Status: Acute (19) 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 (20) Hydroureteronephrosis Status: Acute (21) Infection associated with nephrostomy catheter Status: Acute (22) Intractable pain Status: Acute (23) Malfunction of nephrostomy tube Status: Acute (24) Other mechanical complication of nephrostomy catheter, sequela Status: Acute (25) Pancreatitis Status: Acute (26) Prophylactic measure Status: Acute (27) Pyelonephritis Status: Acute (28) Pyelonephritis, acute Status: Acute (29) Renal colic Status: Acute (30) Small bowel obstruction Status: Acute (31) UTI (lower urinary tract infection) Status: Acute (32) Urinary tract infection Status: Acute (33) AIDS Status: Chronic (34) Anemia Status: Chronic (35) Asthma Status: Chronic (36) Back pain Status: Chronic (37) Cancer of cervix Status: Chronic (38) Colostomy in place Status: Chronic (39) HIV (human immunodeficiency virus infection) Status: Chronic (40) HIV disease Status: Chronic (41) HTN (hypertension) Status: Chronic (42) History of depression Status: Chronic (43) History of uterine cancer Status: Chronic (44) Hx of nephrostomy Status: Chronic (45) Hydronephrosis of left kidney Status: Chronic (46) Hydronephrosis of right kidney Status: Chronic (47) Hyperlipidemia Status: Chronic (48) Immunocompromised state Status: Chronic (49) Renal insufficiency Status: Chronic - Assessment and Plan (Free Text) Plan: Continue same Consults Brittany Jennings Continue antibiotics Discussed with family
--- NOTE | 2016-10-30 14:33 | CP.PCM.PN ---
Subjective - Date & Time of Evaluation Date of Evaluation: 10/30/16 Time of Evaluation: 10:45 - Subjective Subjective: General Surgery Dr. Angulo Pt S&E @bedside. NAEO. much improved. minimal epigastric pain. denies F/C, SOB, CP, N/V. tolerating regular diet. has been ambulating halls. Objective - Vital Signs/Intake and Output Vital Signs (last 24 hours): Temp Pulse Resp BP Pulse Ox 97.7 F 84 20 169/106 H 96 10/30/16 08:00 10/30/16 08:00 10/30/16 08:00 10/30/16 08:00 10/30/16 08:00 Intake and Output: 10/30/16 10/30/16 06:59 18:59 Intake Total 390 Output Total 1050 Balance -660 - Medications Medications: Current Medications Acetaminophen (Tylenol 650 Mg Supp) 650 mg [place] Q4 PRN PRN Reason: Fever >100.4 F Dicyclomine HCl (Bentyl) 20 mg PO TID [facility] Last Admin: 10/30/16 09:27 Dose: 20 mg Hydromorphone HCl (Dilaudid) 0.5 mg IVP Q6H PRN PRN Reason: Pain, moderate (4-7) Last Admin: 10/30/16 01:52 Dose: 0.5 mg Cefepime HCl (Maxipime Iv 1 Gm Premix) 50 mls @ 100 mls/hr IVPB Q12H [facility] Last Admin: 10/30/16 01:52 Dose: 100 mls/hr Metronidazole (Flagyl) 100 mls @ 100 mls/hr IVPB Q12H [facility] Last Admin: 10/30/16 01:52 Dose: 100 mls/hr Metoclopramide HCl (Reglan) 10 mg IVP Q8 [facility] Last Admin: 10/30/16 05:15 Dose: 10 mg Ondansetron HCl (Zofran Inj) 4 mg IVP Q4 PRN PRN Reason: Nausea/Vomiting Last Admin: 10/26/16 19:49 Dose: 4 mg Pantoprazole Sodium (Protonix Inj) 40 mg IVP DAILY [facility] Last Admin: 10/30/16 09:27 Dose: 40 mg Simethicone (Mylicon Chew Tab) 80 mg PO Q6 PRN PRN Reason: gas/bloating Last Admin: 10/29/16 10:23 Dose: 80 mg - Labs Labs: 10/28/16 11:04 10/28/16 11:04 - Constitutional Appears: Non-toxic, No Acute Distress - Head Exam Head Exam: NORMAL INSPECTION - Eye Exam Eye Exam: Normal appearance Pupil Exam: NORMAL ACCOMODATION - ENT Exam ENT Exam: Mucous Membranes Moist - Respiratory Exam Respiratory Exam: NORMAL BREATHING PATTERN. absent: Accessory Muscle Use, Respiratory Distress - GI/Abdominal Exam GI & Abdominal Exam: Soft. absent: Distended, Firm, Guarding, Rigid, Tenderness Additional comments: stoma pink, patent stool present in ostomy bag - Extremities Exam Extremities Exam: Normal Inspection. absent: Pedal Edema, Tenderness - Back Exam Additional comments: B/L nephrostomy tubes - Neurological Exam Neurological Exam: Alert, Awake, Oriented x3 - Psychiatric Exam Psychiatric exam: Normal Affect, Normal Mood - Skin Skin Exam: Dry, Intact, Normal Color, Warm Assessment and Plan - Assessment and Plan (Free Text) Assessment: 61 y/o F w/ SOB- resolved - advance diet as tolerated - pt for nephrostomy tube exchange on Monday - pt cleared for discharge from surgical standpoint Pt discussed w/ Dr. Kev Rosales DO PGY1
--- NOTE | 2016-10-30 15:21 | CP.PCM.PN ---
Subjective - Date & Time of Evaluation Date of Evaluation: 10/30/16 Time of Evaluation: 07:00 - Subjective Subjective: tolerating po will restart antivirals Objective - Vital Signs/Intake and Output Vital Signs (last 24 hours): Temp Pulse Resp BP Pulse Ox 97.7 F 84 20 169/106 H 96 10/30/16 08:00 10/30/16 08:00 10/30/16 08:00 10/30/16 08:00 10/30/16 08:00 Intake and Output: 10/30/16 10/30/16 06:59 18:59 Intake Total 390 Output Total 1050 375 Balance -660 -375 - Medications Medications: Current Medications Acetaminophen (Tylenol 650 Mg Supp) 650 mg [place] Q4 PRN PRN Reason: Fever >100.4 F Dicyclomine HCl (Bentyl) 20 mg PO TID [facility] Last Admin: 10/30/16 14:35 Dose: 20 mg Dolutegravir Sodium (Tivicay) 50 mg PO ONCE NR Hydromorphone HCl (Dilaudid) 0.5 mg IVP Q6H PRN PRN Reason: Pain, moderate (4-7) Last Admin: 10/30/16 14:38 Dose: 0.5 mg Cefepime HCl (Maxipime Iv 1 Gm Premix) 50 mls @ 100 mls/hr IVPB Q12H [facility] Last Admin: 10/30/16 01:52 Dose: 100 mls/hr Metronidazole (Flagyl) 100 mls @ 100 mls/hr IVPB Q12H [facility] Last Admin: 10/30/16 14:35 Dose: 100 mls/hr Metoclopramide HCl (Reglan) 10 mg IVP Q8 [facility] Last Admin: 10/30/16 14:35 Dose: 10 mg Ondansetron HCl (Zofran Inj) 4 mg IVP Q4 PRN PRN Reason: Nausea/Vomiting Last Admin: 10/26/16 19:49 Dose: 4 mg Pantoprazole Sodium (Protonix Inj) 40 mg IVP DAILY [facility] Last Admin: 10/30/16 09:27 Dose: 40 mg Ritonavir (Norvir) 100 mg PO BIDBS [facility] Simethicone (Mylicon Chew Tab) 80 mg PO Q6 PRN PRN Reason: gas/bloating Last Admin: 10/29/16 10:23 Dose: 80 mg - Labs Labs: 10/28/16 11:04 10/28/16 11:04 - Constitutional Appears: Non-toxic, Chronically Ill - Head Exam Head Exam: NORMOCEPHALIC - Eye Exam Eye Exam: PERRL. absent: Scleral icterus - ENT Exam ENT Exam: Mucous Membranes Dry - Neck Exam Neck Exam: absent: Lymphadenopathy - Respiratory Exam Respiratory Exam: Decreased Breath Sounds, Rhonchi - Cardiovascular Exam Cardiovascular Exam: REGULAR RHYTHM, +S1, +S2 - GI/Abdominal Exam GI & Abdominal Exam: Distended, Soft. absent: Tenderness - Rectal Exam Rectal Exam: Deferred - Exam Exam: NORMAL INSPECTION - Extremities Exam Extremities Exam: absent: Calf Tenderness, Pedal Edema Assessment and Plan (1) Small bowel obstruction Status: Acute (2) Hx of nephrostomy Status: Chronic (3) Abdominal pain Status: Acute - Assessment and Plan (Free Text) Plan: renew HIV meds
--- NOTE | 2016-10-30 15:50 | CON ---
DATE: 10/30/2016 The patient is a 61-year-old [place] female who has bilateral nephrostomy for a few years because of cervical cancer condition, post radiation and surgery. The patient has a nephrostomy tube, which was functioning prior to admission and it was changed about 2-1/2 months ago. Recently started having a bdominal pain, came to the ER with rule out history of bowel obstruction. The patient treated, impro negrito. She is now in no pain, moving bowels okay. She has a colostomy. PHYSICAL EXAMINATION: No flank tenderness. No kidney palpable. Previous cystoscopy and cystogram revealed major reflux on the left side. IMPRESSION: Condition post bilateral nephrostomy and radiation and surgery for cervical cancer. PLAN: Followup and change nephrostomy next week. Cece Knutson MD cc: 43 TT: 10/30/2016 15:49:16 Confirmation # [id number] Dictation # [id number] en
[2016-10-31] MEDS: Cefepime IV 1 gm in Dextrose 50 ML IVPB SCH (00:38)
[2016-10-31] MEDS: metroNIDAZOLE IV 500 mg/100 ml 100 ML IVPB SCH (01:22)
--- NOTE | 2016-10-31 13:29 | CP.PCM.PN ---
Subjective - Date & Time of Evaluation Date of Evaluation: 10/31/16 Time of Evaluation: 09:50 - Subjective Subjective: PGY2 Medicine Note - Dr. Jose Barahona's service: Patient seen and examined at bedside this AM. Patient reports a red, itchy rash under her left arm pit that always come in the warmer months. Patient also reports epigastric tenderness especially at night time. Patient denies any other complaints. Objective - Vital Signs/Intake and Output Vital Signs (last 24 hours): Temp Pulse Resp BP Pulse Ox 98.2 F 75 20 161/84 H 95 10/31/16 08:49 10/31/16 08:49 10/31/16 08:49 10/31/16 08:49 10/31/16 08:49 Intake and Output: 10/31/16 10/31/16 06:59 18:59 Output Total 150 Balance -150 - Medications Medications: Current Medications Acetaminophen (Tylenol 650 Mg Supp) 650 mg [place] Q4 PRN PRN Reason: Fever >100.4 F Darunavir (Prezista) 600 mg PO BID [facility] Last Admin: 10/31/16 11:54 Dose: 600 mg Dicyclomine HCl (Bentyl) 20 mg PO TID [facility] Last Admin: 10/31/16 11:54 Dose: 20 mg Hydromorphone HCl (Dilaudid) 0.5 mg IVP Q6H PRN PRN Reason: Pain, moderate (4-7) Last Admin: 10/30/16 21:35 Dose: 0.5 mg Lisinopril (Zestril) 10 mg PO DAILY [facility] Metoclopramide HCl (Reglan) 10 mg IVP Q8 [facility] Last Admin: 10/31/16 05:33 Dose: 10 mg Ondansetron HCl (Zofran Inj) 4 mg IVP Q4 PRN PRN Reason: Nausea/Vomiting Last Admin: 10/26/16 19:49 Dose: 4 mg Pantoprazole Sodium (Protonix Inj) 40 mg IVP DAILY [facility] Last Admin: 10/31/16 11:54 Dose: 40 mg Ritonavir (Norvir) 100 mg PO BIDBS [facility] Last Admin: 10/31/16 08:30 Dose: 100 mg Simethicone (Mylicon Chew Tab) 80 mg PO Q6 PRN PRN Reason: gas/bloating Last Admin: 10/29/16 10:23 Dose: 80 mg - Labs Labs: 10/28/16 11:04 10/28/16 11:04 - Constitutional Appears: Non-toxic, No Acute Distress - Head Exam Head Exam: NORMAL INSPECTION - Eye Exam Eye Exam: EOMI - ENT Exam ENT Exam: Mucous Membranes Moist - Respiratory Exam Respiratory Exam: Clear to Ausculation Bilateral, NORMAL BREATHING PATTERN. absent: Rales, Rhonchi, Wheezes - Cardiovascular Exam Cardiovascular Exam: REGULAR RHYTHM, +S1, +S2. absent: Gallop, Rubs, Murmur - GI/Abdominal Exam GI & Abdominal Exam: Soft, Tenderness (epigastric), Normal Bowel Sounds - Extremities Exam Extremities Exam: Normal Capillary Refill. absent: Pedal Edema - Neurological Exam Neurological Exam: Alert, Oriented x3 - Psychiatric Exam Psychiatric exam: Normal Affect, Normal Mood - Skin Additional comments: erythematous lesion under armpit with satellite lesions - likely fungal Assessment and Plan - Assessment and Plan (Free Text) Assessment: SBO Bentyl 20mg PO TID Simethicone 80mg PO Q6 PRN Reglan 10mg IVP Q8 Tylenol 650mg NH Q4 PRN Zofran 4mg IVP Q4 PRN resolved cleared for d/c from surgery, Dr. Angulo - help appreciated Nephrostomy tubes Urology consult - Dr. Garza - help appreciated nephrostomy tube exchange on Monday H/O cervical cancer s/p treatment has ostomy bag Fungal rash Started keotconazole 2% cream TOP BID HTN Started lisinopril 10mg PO daily 10/31/16 Epigastric tenderness Likely gastritis F/U H. Pylori Protonix 40mg IVP daily History of HIV Restarted Darunavir 600mg PO BID, Ritonavir 100mg PO BIDBS per Dr. Segura on Prophylaxis SCD Protonix 40mg IVP daily
[2016-10-31 15:11] LABS: BASO % 0.4 % (0.0-2.0); EOS % 0.6 % (0.0-4.0); HEMATOCRIT 32.6 % (34.0-47.0); LYMPH # 1.9 K/uL (1.0-4.3); LYMPH % 27.2 % (20.0-40.0); MEAN CELL VOLUME 82.4 fL (81.0-99.0); MEAN CORPUSCULAR HEMOGLOBIN 26.2 pg (27.0-31.0); MEAN CORPUSCULAR HGB CONC 31.8 g/dL (33.0-37.0); MEAN PLATELET VOLUME 10.5 fL (7.2-11.7); MONO # 0.7 K/uL (0.0-0.8); MONO % 9.3 % (0.0-10.0); RED CELL DISTRIBUTION WIDTH 17.1 % (11.5-14.5); WHITE BLOOD COUNT 7.1 K/uL (4.8-10.8)
[2016-10-31 15:24] LABS: POTASSIUM 3.9 mmol/L (3.6-5.2)
--- NOTE | 2016-10-31 15:24 | PN ---
DATE: 10/31/2016 The patient is a 61-year-old with bilateral nephrostomy tube due to obstruction. The patient is sche duled to go for bilateral nephrostomy change under mild sedation. Would keep patient n.p.o. after mi dnight. Cece Knutson MD cc: 43 TT: 10/31/2016 15:24:01 Confirmation # [id number] Dictation # [id number] en
[2016-10-31 15:27] LABS: ALB/GLOB RATIO 1.2 (1.0-2.1); BILIRUBIN,TOTAL 0.4 mg/dL (0.2-1.3)
[2016-10-31 15:28] LABS: CALCIUM 8.4 mg/dl (8.6-10.4)
--- NOTE | 2016-10-31 17:10 | CP.PCM.PN ---
Subjective - Date & Time of Evaluation Date of Evaluation: 10/31/16 Time of Evaluation: 11:00 - Subjective Subjective: clinically same Objective - Vital Signs/Intake and Output Vital Signs (last 24 hours): Temp Pulse Resp BP Pulse Ox 98.2 F 86 20 157/80 H 96 10/31/16 16:00 10/31/16 16:00 10/31/16 16:00 10/31/16 16:00 10/31/16 16:00 Intake and Output: 10/31/16 10/31/16 06:59 18:59 Output Total 150 Balance -150 - Medications Medications: Current Medications Acetaminophen (Tylenol 650 Mg Supp) 650 mg [place] Q4 PRN PRN Reason: Fever >100.4 F Darunavir (Prezista) 600 mg PO BID [facility] Last Admin: 10/31/16 17:00 Dose: 600 mg Dicyclomine HCl (Bentyl) 20 mg PO TID [facility] Last Admin: 10/31/16 17:00 Dose: 20 mg Hydromorphone HCl (Dilaudid) 0.5 mg IVP Q6H PRN PRN Reason: Pain, moderate (4-7) Last Admin: 10/30/16 21:35 Dose: 0.5 mg Ketoconazole (Nizoral) 0 gm TOP BID [facility] Last Admin: 10/31/16 17:01 Dose: 1 applic Lisinopril (Zestril) 10 mg PO DAILY [facility] Last Admin: 10/31/16 17:00 Dose: 10 mg Metoclopramide HCl (Reglan) 10 mg IVP Q8 [facility] Last Admin: 10/31/16 15:50 Dose: 10 mg Ondansetron HCl (Zofran Inj) 4 mg IVP Q4 PRN PRN Reason: Nausea/Vomiting Last Admin: 10/26/16 19:49 Dose: 4 mg Pantoprazole Sodium (Protonix Inj) 40 mg IVP DAILY [facility] Last Admin: 10/31/16 11:54 Dose: 40 mg Ritonavir (Norvir) 100 mg PO BIDBS [facility] Last Admin: 10/31/16 17:00 Dose: 100 mg Simethicone (Mylicon Chew Tab) 80 mg PO Q6 PRN PRN Reason: gas/bloating Last Admin: 10/29/16 10:23 Dose: 80 mg - Labs Labs: 10/31/16 14:55 10/31/16 14:55 - Constitutional Appears: Well - Head Exam Head Exam: ATRAUMATIC, NORMAL INSPECTION, NORMOCEPHALIC - Eye Exam Eye Exam: EOMI, Normal appearance, PERRL Pupil Exam: NORMAL ACCOMODATION, PERRL - ENT Exam ENT Exam: Mucous Membranes Moist, Normal Exam - Neck Exam Neck Exam: Full ROM, Normal Inspection. absent: Lymphadenopathy - Respiratory Exam Respiratory Exam: Decreased Breath Sounds - Cardiovascular Exam Cardiovascular Exam: REGULAR RHYTHM, +S1, +S2 - GI/Abdominal Exam GI & Abdominal Exam: Soft, Diminished Bowel Sounds - Rectal Exam Rectal Exam: Deferred Assessment and Plan (1) PERFECTO (acute kidney injury) Status: Acute (2) Abdominal pain Status: Acute (3) Abdominal pain in female Status: Acute (4) Acute diarrhea Status: Acute (5) Asthma exacerbation, mild Status: Acute (6) CHF (congestive heart failure) Status: Acute (7) Chest pain Status: Acute (8) Chest pain Status: Acute (9) Complicated urinary tract infection Status: Acute (10) Complication of nephrostomy Status: Acute (11) Creatinine elevation Status: Acute (12) Deep venous thrombosis of lower extremity Status: Acute (13) Diarrhea Status: Acute (14) Fever Status: Acute (15) Flank pain Status: Acute (16) Headache Status: Acute (17) Hematuria Status: Acute (18) Hydronephrosis Status: Acute (19) 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 (20) Hydroureteronephrosis Status: Acute (21) Infection associated with nephrostomy catheter Status: Acute (22) Intractable pain Status: Acute (23) Malfunction of nephrostomy tube Status: Acute (24) Other mechanical complication of nephrostomy catheter, sequela Status: Acute (25) Pancreatitis Status: Acute (26) Prophylactic measure Status: Acute (27) Pyelonephritis Status: Acute (28) Pyelonephritis, acute Status: Acute (29) Renal colic Status: Acute (30) Small bowel obstruction Status: Acute (31) UTI (lower urinary tract infection) Status: Acute (32) Urinary tract infection Status: Acute (33) AIDS Status: Chronic (34) Anemia Status: Chronic (35) Asthma Status: Chronic (36) Back pain Status: Chronic (37) Cancer of cervix Status: Chronic (38) Colostomy in place Status: Chronic (39) HIV (human immunodeficiency virus infection) Status: Chronic (40) HIV disease Status: Chronic (41) HTN (hypertension) Status: Chronic (42) History of depression Status: Chronic (43) History of uterine cancer Status: Chronic (44) Hx of nephrostomy Status: Chronic (45) Hydronephrosis of left kidney Status: Chronic (46) Hydronephrosis of right kidney Status: Chronic (47) Hyperlipidemia Status: Chronic (48) Immunocompromised state Status: Chronic (49) Renal insufficiency Status: Chronic - Assessment and Plan (Free Text) Plan: Dicyclomine Surgery consult Protonix Zofran Lisinopril Monitor ostomy bag output Neurology consult on board HIV meds
[2016-11-01 06:28] LABS: BASO % 0.5 % (0.0-2.0); EOS # 0.1 K/uL (0.0-0.7); EOS % 1.4 % (0.0-4.0); HEMATOCRIT 27.3 % (34.0-47.0); LYMPH # 1.7 K/uL (1.0-4.3); LYMPH % 30.4 % (20.0-40.0); MEAN CELL VOLUME 82.7 fL (81.0-99.0); MEAN CORPUSCULAR HEMOGLOBIN 25.6 pg (27.0-31.0); MEAN PLATELET VOLUME 10.6 fL (7.2-11.7); MONO # 0.7 K/uL (0.0-0.8); MONO % 12.1 % (0.0-10.0); RED CELL DISTRIBUTION WIDTH 17.2 % (11.5-14.5); WHITE BLOOD COUNT 5.4 K/uL (4.8-10.8)
[2016-11-01 06:31] LABS: ALKALINE PHOSPHATASE 41 U/L (38-126); ALT/SGPT 16 U/L (9-52); AST/SGOT 23 U/L (14-36); BILIRUBIN,TOTAL < 0.1 mg/dL (0.2-1.3); BLOOD UREA NITROGEN 17 mg/dL (7-17); CALCIUM 6.9 mg/dl (8.6-10.4); CARBON DIOXIDE 22 mmol/L (22-30); CHLORIDE 109 mmol/L (98-107); GFR AFRICAN-AMERICAN 56; GLUCOSE,RANDOM 87 mg/dL (65-105); POTASSIUM 3.3 mmol/L (3.6-5.2); SODIUM 141 mmol/L (132-148); TOTAL PROTEIN 5.6 g/dL (6.3-8.3)
[2016-11-01] MEDS ORDERED: Iodixanol 320 MG/ML 200 ML BOTTLE IV ONE (11:10)
--- NOTE | 2016-11-01 11:12 | PCM.IRPREO ---
Pre Procedure Note - History Proposed Procedure: BIlateral nephrostomy tube change Pre-Op Diagnosis: Hydronephrosis. - Pre Procedure Were any radiologic studies performed in the last 12 months: Not Applicable Was medical management performed in the past 24 months: Not Applicable Clinical indication for the procedure: Hydronephrosis. Have risks and benefits been explained to the patient: Yes Risks and benefits been explained to the patient: Infection, bleeding Have alternatives to surgery explained to the patient as applicable: Yes ( Surgery) - Allergies Allergies: Allergies sulfamethoxazole [From Bactrim] Allergy (Intermediate, Verified 10/25/16 13:09) ITCHING aloe vera Allergy (Verified 10/25/16 13:09) ITCHING Sulfa (Sulfonamide Antibiotics) Allergy (Verified 10/25/16 13:09) ITCHING - Physical Exam Vital Signs: Vital Signs 11/01/16 08:24 Temperature 97.9 F Pulse Rate 80 Respiratory 20 Rate Blood Pressure 129/83 O2 Sat by Pulse 97 Oximetry Mental Status: Alert & Oriented x3 Neuro: WNL Heart: WNL Lungs: WNL GI: WNL - Impression Impression: Pt with bilateral PCN presents for nephrostomy change. Pt. Evaluated Today:Candidate for Anesthesia & Procedure: ASA3 Malampati 3 - Date & Time Date: 11/01/16 Time: 10:30
--- NOTE | 2016-11-01 11:32 | PCM.SURG1 ---
Surgeon's Initial Post Op Note - Surgeon's Notes Surgeon: Benjie Cui MD Negotiator Sales: NONE Type of Anesthesia: IV Sedation Pre-Operative Diagnosis: Bilateral uteral obstruction, hydronephrosis. Operative Findings: Bilateral hydronephrosis. BIlateal ureteral obstruction/ stenosis. Post-Operative Diagnosis: Bilateral uteral obstruction, hydronephrosis. Operation Performed: Right and left percutaneous nephrostogram and right and left nephrostomy tube change. Specimen/Specimens Removed: None Estimated Blood Loss: EBL {In ML}: 0 Blood Products Given: N/A Drains Used: No Drains Post-Op Condition: Fair Date of Surgery/Procedure: 11/01/16 Time of Surgery/Procedure: 11:30
--- NOTE | 2016-11-01 12:14 | CP.PCM.PN ---
<Marni Estrada - Last Filed: 11/01/16 16:27> Subjective - Date & Time of Evaluation Date of Evaluation: 11/01/16 Time of Evaluation: 14:58 - Subjective Subjective: Patient seen and examined. s/p Right and left percutaneous nephrostogram and right and left nephrostomy tube change today with Dr Cui. Patient tolerated the procedure well. Objective - Vital Signs/Intake and Output Vital Signs (last 24 hours): Temp Pulse Resp BP Pulse Ox 97.9 F 80 20 129/83 97 11/01/16 08:24 11/01/16 08:24 11/01/16 08:24 11/01/16 08:24 11/01/16 08:24 Intake and Output: 11/01/16 11/01/16 06:59 18:59 Intake Total 400 Output Total 450 Balance -50 - Medications Medications: Current Medications Acetaminophen (Tylenol 650 Mg Supp) 650 mg [place] Q4 PRN PRN Reason: Fever >100.4 F Darunavir (Prezista) 600 mg PO BID [facility] Last Admin: 10/31/16 17:00 Dose: 600 mg Dicyclomine HCl (Bentyl) 20 mg PO TID [facility] Last Admin: 11/01/16 09:18 Dose: Not Given Hydromorphone HCl (Dilaudid) 0.5 mg IVP Q6H PRN PRN Reason: Pain, moderate (4-7) Last Admin: 10/30/16 21:35 Dose: 0.5 mg Ketoconazole (Nizoral) 0 gm TOP BID [facility] Last Admin: 11/01/16 09:21 Dose: 1 applic Lisinopril (Zestril) 10 mg PO DAILY [facility] Last Admin: 11/01/16 10:00 Dose: Not Given Metoclopramide HCl (Reglan) 10 mg IVP Q8 [facility] Last Admin: 10/31/16 21:23 Dose: 10 mg Ondansetron HCl (Zofran Inj) 4 mg IVP Q4 PRN PRN Reason: Nausea/Vomiting Last Admin: 10/26/16 19:49 Dose: 4 mg Pantoprazole Sodium (Protonix Inj) 40 mg IVP DAILY [facility] Last Admin: 11/01/16 09:21 Dose: Not Given Ritonavir (Norvir) 100 mg PO BIDBS [facility] Last Admin: 10/31/16 17:00 Dose: 100 mg Simethicone (Mylicon Chew Tab) 80 mg PO Q6 PRN PRN Reason: gas/bloating Last Admin: 10/29/16 10:23 Dose: 80 mg - Labs Labs: 11/01/16 06:32 11/01/16 04:00 Assessment and Plan - Assessment and Plan (Free Text) Assessment: SBO Bentyl 20mg PO TID Simethicone 80mg PO Q6 PRN Reglan 10mg IVP Q8 Tylenol 650mg [place] Q4 PRN Zofran 4mg IVP Q4 PRN resolved cleared for d/c from surgery, Dr. Angulo - help appreciated Nephrostomy tubes Urology consult - Dr. Garza - help appreciated nephrostomy tube exchange today H/O cervical cancer s/p treatment has ostomy bag Fungal rash Started keotconazole 2% cream TOP BID HTN Started lisinopril 10mg PO daily 10/31/16 Epigastric tenderness Likely gastritis F/U H. Pylori Protonix 40mg IVP daily History of HIV Restarted Darunavir 600mg PO BID, Ritonavir 100mg PO BIDBS per Dr. Segura on Prophylaxis SCD Protonix 40mg IVP daily <Marty Barahona - Last Filed: 11/01/16 19:35> Objective - Vital Signs/Intake and Output Vital Signs (last 24 hours): Temp Pulse Resp BP Pulse Ox 97.9 F 83 20 147/87 96 11/01/16 15:36 11/01/16 15:36 11/01/16 15:36 11/01/16 15:36 11/01/16 15:36 Intake and Output: 11/01/16 11/02/16 18:59 06:59 Output Total 200 Balance -200 - Medications Medications: Current Medications Acetaminophen (Tylenol 650 Mg Supp) 650 mg [place] Q4 PRN PRN Reason: Fever >100.4 F Darunavir (Prezista) 800 mg PO DAILY [facility] Dicyclomine HCl (Bentyl) 20 mg PO TID [facility] Last Admin: 11/01/16 17:26 Dose: 20 mg Hydromorphone HCl (Dilaudid) 0.5 mg IVP Q6H PRN PRN Reason: Pain, moderate (4-7) Last Admin: 10/30/16 21:35 Dose: 0.5 mg Ketoconazole (Nizoral) 0 gm TOP BID [facility] Last Admin: 11/01/16 17:27 Dose: 1 applic Lisinopril (Zestril) 10 mg PO DAILY [facility] Last Admin: 11/01/16 14:46 Dose: 10 mg Metoclopramide HCl (Reglan) 10 mg IVP Q8 [facility] Last Admin: 11/01/16 14:46 Dose: 10 mg Ondansetron HCl (Zofran Inj) 4 mg IVP Q4 PRN PRN Reason: Nausea/Vomiting Last Admin: 10/26/16 19:49 Dose: 4 mg Pantoprazole Sodium (Protonix Inj) 40 mg IVP DAILY [facility] Last Admin: 11/01/16 09:21 Dose: Not Given Ritonavir (Norvir) 100 mg PO DAILY [facility] Simethicone (Mylicon Chew Tab) 80 mg PO Q6 PRN PRN Reason: gas/bloating Last Admin: 10/29/16 10:23 Dose: 80 mg - Labs Labs: 11/01/16 06:32 11/01/16 04:00 Attending/Attestation - Attestation I have personally seen and examined this patient.: Yes I have fully participated in the care of the patient.: Yes I have reviewed all pertinent clinical information, including history, physical exam and plan: Yes Notes (Text): 11/01/16 19:35 case seen and discussed with pt and mx as ordered
--- NOTE | 2016-11-01 15:11 | CP.PCM.PN ---
Subjective - Date & Time of Evaluation Date of Evaluation: 11/01/16 Time of Evaluation: 10:40 - Subjective Subjective: clinically same Objective - Vital Signs/Intake and Output Vital Signs (last 24 hours): Temp Pulse Resp BP Pulse Ox 97.6 F 81 20 166/92 H 97 11/01/16 12:30 11/01/16 12:30 11/01/16 12:30 11/01/16 12:30 11/01/16 12:30 Intake and Output: 11/01/16 11/01/16 06:59 18:59 Intake Total 400 Output Total 450 Balance -50 - Medications Medications: Current Medications Acetaminophen (Tylenol 650 Mg Supp) 650 mg [place] Q4 PRN PRN Reason: Fever >100.4 F Darunavir (Prezista) 600 mg PO BID [facility] Last Admin: 11/01/16 14:45 Dose: 600 mg Dicyclomine HCl (Bentyl) 20 mg PO TID [facility] Last Admin: 11/01/16 14:47 Dose: 20 mg Hydromorphone HCl (Dilaudid) 0.5 mg IVP Q6H PRN PRN Reason: Pain, moderate (4-7) Last Admin: 10/30/16 21:35 Dose: 0.5 mg Ketoconazole (Nizoral) 0 gm TOP BID [facility] Last Admin: 11/01/16 09:21 Dose: 1 applic Lisinopril (Zestril) 10 mg PO DAILY [facility] Last Admin: 11/01/16 14:46 Dose: 10 mg Metoclopramide HCl (Reglan) 10 mg IVP Q8 [facility] Last Admin: 11/01/16 14:46 Dose: 10 mg Ondansetron HCl (Zofran Inj) 4 mg IVP Q4 PRN PRN Reason: Nausea/Vomiting Last Admin: 10/26/16 19:49 Dose: 4 mg Pantoprazole Sodium (Protonix Inj) 40 mg IVP DAILY [facility] Last Admin: 11/01/16 09:21 Dose: Not Given Ritonavir (Norvir) 100 mg PO BIDBS [facility] Last Admin: 11/01/16 14:44 Dose: 100 mg Simethicone (Mylicon Chew Tab) 80 mg PO Q6 PRN PRN Reason: gas/bloating Last Admin: 10/29/16 10:23 Dose: 80 mg - Labs Labs: 11/01/16 06:32 11/01/16 04:00 - Constitutional Appears: Well - Head Exam Head Exam: ATRAUMATIC, NORMAL INSPECTION, NORMOCEPHALIC - Eye Exam Eye Exam: EOMI, Normal appearance, PERRL Pupil Exam: NORMAL ACCOMODATION, PERRL - ENT Exam ENT Exam: Mucous Membranes Moist, Normal Exam - Neck Exam Neck Exam: Full ROM, Normal Inspection. absent: Lymphadenopathy - Respiratory Exam Respiratory Exam: Decreased Breath Sounds - Cardiovascular Exam Cardiovascular Exam: +S1, +S2 - GI/Abdominal Exam GI & Abdominal Exam: Soft, Diminished Bowel Sounds - Rectal Exam Rectal Exam: Deferred Assessment and Plan (1) PERFECTO (acute kidney injury) Status: Acute (2) Abdominal pain Status: Acute (3) Abdominal pain in female Status: Acute (4) Acute diarrhea Status: Acute (5) Asthma exacerbation, mild Status: Acute (6) CHF (congestive heart failure) Status: Acute (7) Chest pain Status: Acute (8) Chest pain Status: Acute (9) Complicated urinary tract infection Status: Acute (10) Complication of nephrostomy Status: Acute (11) Creatinine elevation Status: Acute (12) Deep venous thrombosis of lower extremity Status: Acute (13) Diarrhea Status: Acute (14) Fever Status: Acute (15) Flank pain Status: Acute (16) Headache Status: Acute (17) Hematuria Status: Acute (18) Hydronephrosis Status: Acute (19) 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 (20) Hydroureteronephrosis Status: Acute (21) Infection associated with nephrostomy catheter Status: Acute (22) Intractable pain Status: Acute (23) Malfunction of nephrostomy tube Status: Acute (24) Other mechanical complication of nephrostomy catheter, sequela Status: Acute (25) Pancreatitis Status: Acute (26) Prophylactic measure Status: Acute (27) Pyelonephritis Status: Acute (28) Pyelonephritis, acute Status: Acute (29) Renal colic Status: Acute (30) Small bowel obstruction Status: Acute (31) UTI (lower urinary tract infection) Status: Acute (32) Urinary tract infection Status: Acute (33) AIDS Status: Chronic (34) Anemia Status: Chronic (35) Asthma Status: Chronic (36) Back pain Status: Chronic (37) Cancer of cervix Status: Chronic (38) Colostomy in place Status: Chronic (39) HIV (human immunodeficiency virus infection) Status: Chronic (40) HIV disease Status: Chronic (41) HTN (hypertension) Status: Chronic (42) History of depression Status: Chronic (43) History of uterine cancer Status: Chronic (44) Hx of nephrostomy Status: Chronic (45) Hydronephrosis of left kidney Status: Chronic (46) Hydronephrosis of right kidney Status: Chronic (47) Hyperlipidemia Status: Chronic (48) Immunocompromised state Status: Chronic (49) Renal insufficiency Status: Chronic - Assessment and Plan (Free Text) Plan: Continue HIV meds ID consult Surgery consult Dicyclomine Lisinopril Continue same
[2016-11-01] MEDS ORDERED: Potassium Chloride 20 mEq/15 ml LIQ UD PO STA (15:35)
[2016-11-02 07:14] LABS: BASO % 0.6 % (0.0-2.0); EOS # 0.1 K/uL (0.0-0.7); EOS % 1.6 % (0.0-4.0); HEMATOCRIT 30.9 % (34.0-47.0); LYMPH # 2.2 K/uL (1.0-4.3); LYMPH % 35.4 % (20.0-40.0); MEAN CELL VOLUME 82.7 fL (81.0-99.0); MEAN CORPUSCULAR HEMOGLOBIN 25.7 pg (27.0-31.0); MEAN CORPUSCULAR HGB CONC 31.1 g/dL (33.0-37.0); MEAN PLATELET VOLUME 10.8 fL (7.2-11.7); MONO # 0.7 K/uL (0.0-0.8); MONO % 10.9 % (0.0-10.0); RED CELL DISTRIBUTION WIDTH 17.2 % (11.5-14.5); WHITE BLOOD COUNT 6.3 K/uL (4.8-10.8)
[2016-11-02 07:41] LABS: POTASSIUM 4.3 mmol/L (3.6-5.2)
[2016-11-02 07:43] LABS: ALB/GLOB RATIO 1.1 (1.0-2.1); BILIRUBIN,TOTAL 0.2 mg/dL (0.2-1.3); TOTAL PROTEIN 6.6 g/dL (6.3-8.3)
[2016-11-02 07:44] LABS: CALCIUM 8.5 mg/dl (8.6-10.4); MAGNESIUM 1.5 mg/dL (1.6-2.3); PHOSPHOROUS 3.9 mg/dL (2.5-4.5)
--- NOTE | 2016-11-02 09:38 | CP.PCM.PN ---
Subjective - Date & Time of Evaluation Date of Evaluation: 11/02/16 Time of Evaluation: 09:30 - Subjective Subjective: PGY2 Medicine Note - Dr. Jose Barahona's service: Patient seen and examined at bedside this AM. Patient reports epigastric tenderness that has improved throughout stay. Patient denies fever, chills, chest pain, SOB, flank pain, dysuria, urinary retention, diarrhea, constipation. Objective - Vital Signs/Intake and Output Vital Signs (last 24 hours): Temp Pulse Resp BP Pulse Ox 98.2 F 75 18 152/80 H 96 11/02/16 08:55 11/02/16 08:55 11/02/16 08:55 11/02/16 08:55 11/02/16 08:55 Intake and Output: 11/02/16 11/02/16 06:59 18:59 Intake Total 630 Output Total 700 Balance -70 - Medications Medications: Current Medications Acetaminophen (Tylenol 650 Mg Supp) 650 mg [place] Q4 PRN PRN Reason: Fever >100.4 F Darunavir (Prezista) 800 mg PO DAILY [facility] Dicyclomine HCl (Bentyl) 20 mg PO TID [facility] Last Admin: 11/01/16 17:26 Dose: 20 mg Hydromorphone HCl (Dilaudid) 0.5 mg IVP Q6H PRN PRN Reason: Pain, moderate (4-7) Last Admin: 10/30/16 21:35 Dose: 0.5 mg Ketoconazole (Nizoral) 0 gm TOP BID [facility] Last Admin: 11/01/16 17:27 Dose: 1 applic Lisinopril (Zestril) 10 mg PO DAILY [facility] Last Admin: 11/01/16 14:46 Dose: 10 mg Metoclopramide HCl (Reglan) 10 mg IVP Q8 [facility] Last Admin: 11/02/16 05:26 Dose: 10 mg Ondansetron HCl (Zofran Inj) 4 mg IVP Q4 PRN PRN Reason: Nausea/Vomiting Last Admin: 10/26/16 19:49 Dose: 4 mg Pantoprazole Sodium (Protonix Inj) 40 mg IVP DAILY [facility] Last Admin: 11/01/16 09:21 Dose: Not Given Ritonavir (Norvir) 100 mg PO DAILY [facility] Simethicone (Mylicon Chew Tab) 80 mg PO Q6 PRN PRN Reason: gas/bloating Last Admin: 10/29/16 10:23 Dose: 80 mg - Labs Labs: 11/02/16 07:05 11/02/16 07:05 - Constitutional Appears: Non-toxic, No Acute Distress - Head Exam Head Exam: NORMAL INSPECTION - Eye Exam Eye Exam: EOMI - ENT Exam ENT Exam: Mucous Membranes Moist - Respiratory Exam Respiratory Exam: Clear to Ausculation Bilateral, NORMAL BREATHING PATTERN. absent: Rales, Rhonchi, Wheezes - Cardiovascular Exam Cardiovascular Exam: REGULAR RHYTHM, +S1, +S2. absent: Gallop, Rubs, Murmur - GI/Abdominal Exam GI & Abdominal Exam: Soft, Tenderness (epigastric), Normal Bowel Sounds - Extremities Exam Extremities Exam: absent: Pedal Edema - Neurological Exam Neurological Exam: Alert, Oriented x3 - Psychiatric Exam Psychiatric exam: Normal Affect, Normal Mood - Skin Skin Exam: Normal Color, Warm Assessment and Plan - Assessment and Plan (Free Text) Assessment: SBO Bentyl 20mg PO TID Simethicone 80mg PO Q6 PRN Reglan 10mg IVP Q8 Tylenol 650mg [place] Q4 PRN Zofran 4mg IVP Q4 PRN resolved cleared for d/c from surgery, Dr. Angulo - help appreciated Nephrostomy tubes Urology consult - Dr. Garza - help appreciated nephrostomy tube exchange 11/01/[address] Cui, IR doctor. Possible D/C today H/O cervical cancer s/p treatment has ostomy bag Fungal rash Started ketoconazole 2% cream TOP BID 10/31/16 HTN Started lisinopril 10mg PO daily 10/31/16 Epigastric tenderness Likely gastritis F/U H. Pylori outpatient Protonix 40mg IVP daily History of HIV Restarted Darunavir 600mg PO BID, Ritonavir 100mg PO BIDBS per Dr. Segura on Prophylaxis SCD Protonix 40mg IVP daily
--- NOTE | 2016-11-02 11:07 | CP.PCM.PN ---
Subjective - Date & Time of Evaluation Date of Evaluation: 11/02/16 Time of Evaluation: 10:20 - Subjective Subjective: clinically same Objective - Vital Signs/Intake and Output Vital Signs (last 24 hours): Temp Pulse Resp BP Pulse Ox 98.2 F 75 18 152/80 H 96 11/02/16 08:55 11/02/16 08:55 11/02/16 08:55 11/02/16 08:55 11/02/16 08:55 Intake and Output: 11/02/16 11/02/16 06:59 18:59 Intake Total 630 Output Total 700 Balance -70 - Medications Medications: Current Medications Acetaminophen (Tylenol 650 Mg Supp) 650 mg [place] Q4 PRN PRN Reason: Fever >100.4 F Darunavir (Prezista) 800 mg PO DAILY [facility] Dicyclomine HCl (Bentyl) 20 mg PO TID [facility] Last Admin: 11/01/16 17:26 Dose: 20 mg Hydromorphone HCl (Dilaudid) 0.5 mg IVP Q6H PRN PRN Reason: Pain, moderate (4-7) Last Admin: 10/30/16 21:35 Dose: 0.5 mg Ketoconazole (Nizoral) 0 gm TOP BID [facility] Last Admin: 11/01/16 17:27 Dose: 1 applic Lisinopril (Zestril) 10 mg PO DAILY [facility] Last Admin: 11/01/16 14:46 Dose: 10 mg Metoclopramide HCl (Reglan) 10 mg IVP Q8 [facility] Last Admin: 11/02/16 05:26 Dose: 10 mg Ondansetron HCl (Zofran Inj) 4 mg IVP Q4 PRN PRN Reason: Nausea/Vomiting Last Admin: 10/26/16 19:49 Dose: 4 mg Pantoprazole Sodium (Protonix Inj) 40 mg IVP DAILY [facility] Last Admin: 11/01/16 09:21 Dose: Not Given Ritonavir (Norvir) 100 mg PO DAILY [facility] Simethicone (Mylicon Chew Tab) 80 mg PO Q6 PRN PRN Reason: gas/bloating Last Admin: 10/29/16 10:23 Dose: 80 mg - Labs Labs: 11/02/16 07:05 11/02/16 07:05 - Constitutional Appears: Well - Head Exam Head Exam: ATRAUMATIC, NORMAL INSPECTION, NORMOCEPHALIC - Eye Exam Eye Exam: EOMI, Normal appearance, PERRL Pupil Exam: NORMAL ACCOMODATION, PERRL - ENT Exam ENT Exam: Mucous Membranes Moist, Normal Exam - Neck Exam Neck Exam: Full ROM, Normal Inspection. absent: Lymphadenopathy - Respiratory Exam Respiratory Exam: Decreased Breath Sounds - Cardiovascular Exam Cardiovascular Exam: REGULAR RHYTHM, +S1, +S2 - GI/Abdominal Exam GI & Abdominal Exam: Soft, Diminished Bowel Sounds - Rectal Exam Rectal Exam: Deferred Assessment and Plan (1) PERFECTO (acute kidney injury) Status: Acute (2) Abdominal pain Status: Acute (3) Abdominal pain in female Status: Acute (4) Acute diarrhea Status: Acute (5) Asthma exacerbation, mild Status: Acute (6) CHF (congestive heart failure) Status: Acute (7) Chest pain Status: Acute (8) Chest pain Status: Acute (9) Complicated urinary tract infection Status: Acute (10) Complication of nephrostomy Status: Acute (11) Creatinine elevation Status: Acute (12) Deep venous thrombosis of lower extremity Status: Acute (13) Diarrhea Status: Acute (14) Fever Status: Acute (15) Flank pain Status: Acute (16) Headache Status: Acute (17) Hematuria Status: Acute (18) Hydronephrosis Status: Acute (19) 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 (20) Hydroureteronephrosis Status: Acute (21) Infection associated with nephrostomy catheter Status: Acute (22) Intractable pain Status: Acute (23) Malfunction of nephrostomy tube Status: Acute (24) Other mechanical complication of nephrostomy catheter, sequela Status: Acute (25) Pancreatitis Status: Acute (26) Prophylactic measure Status: Acute (27) Pyelonephritis Status: Acute (28) Pyelonephritis, acute Status: Acute (29) Renal colic Status: Acute (30) Small bowel obstruction Status: Acute (31) UTI (lower urinary tract infection) Status: Acute (32) Urinary tract infection Status: Acute (33) AIDS Status: Chronic (34) Anemia Status: Chronic (35) Asthma Status: Chronic (36) Back pain Status: Chronic (37) Cancer of cervix Status: Chronic (38) Colostomy in place Status: Chronic (39) HIV (human immunodeficiency virus infection) Status: Chronic (40) HIV disease Status: Chronic (41) HTN (hypertension) Status: Chronic (42) History of depression Status: Chronic (43) History of uterine cancer Status: Chronic (44) Hx of nephrostomy Status: Chronic (45) Hydronephrosis of left kidney Status: Chronic (46) Hydronephrosis of right kidney Status: Chronic (47) Hyperlipidemia Status: Chronic (48) Immunocompromised state Status: Chronic (49) Renal insufficiency Status: Chronic - Assessment and Plan (Free Text) Plan: Plan discharge to home Continue medications Follow-up with PMD within 1 week Follow-up with Dr. Knutson in 1 week Come to ER if symptom recurs
[2016-11-02 15:29] VITALS: BP 155/80; PULSE 78; RESP 20; TEMP 97.9; O2SAT 95
[2016-11-02] MEDS: HYDROmorphone 0.5 mg/0.5 ml ISec IVP PRN (16:20)
--- NOTE | 2016-11-02 18:08 | CP.PCM.PN ---
Subjective - Date & Time of Evaluation Date of Evaluation: 11/02/16 Time of Evaluation: 06:00 - Subjective Subjective: improving Objective - Vital Signs/Intake and Output Vital Signs (last 24 hours): Temp Pulse Resp BP Pulse Ox 97.9 F 78 20 155/80 H 95 11/02/16 15:25 11/02/16 15:25 11/02/16 15:25 11/02/16 15:25 11/02/16 15:25 Intake and Output: 11/02/16 11/02/16 06:59 18:59 Intake Total 630 630 Output Total 700 300 Balance -70 330 - Medications Medications: Current Medications Acetaminophen (Tylenol 650 Mg Supp) 650 mg [place] Q4 PRN PRN Reason: Fever >100.4 F Darunavir (Prezista) 800 mg PO DAILY [facility] Last Admin: 11/02/16 11:36 Dose: 800 mg Dicyclomine HCl (Bentyl) 20 mg PO TID [facility] Last Admin: 11/02/16 13:37 Dose: 20 mg Hydromorphone HCl (Dilaudid) 0.5 mg IVP Q6H PRN PRN Reason: Pain, moderate (4-7) Last Admin: 11/02/16 16:20 Dose: 0.5 mg Ketoconazole (Nizoral) 0 gm TOP BID [facility] Last Admin: 11/02/16 11:25 Dose: 1 applic Lisinopril (Zestril) 10 mg PO DAILY [facility] Last Admin: 11/02/16 11:27 Dose: 10 mg Metoclopramide HCl (Reglan) 10 mg IVP Q8 [facility] Last Admin: 11/02/16 13:38 Dose: 10 mg Ondansetron HCl (Zofran Inj) 4 mg IVP Q4 PRN PRN Reason: Nausea/Vomiting Last Admin: 10/26/16 19:49 Dose: 4 mg Pantoprazole Sodium (Protonix Inj) 40 mg IVP DAILY [facility] Last Admin: 11/02/16 11:28 Dose: 40 mg Ritonavir (Norvir) 100 mg PO DAILY [facility] Last Admin: 11/02/16 11:26 Dose: 100 mg Simethicone (Mylicon Chew Tab) 80 mg PO Q6 PRN PRN Reason: gas/bloating Last Admin: 10/29/16 10:23 Dose: 80 mg - Labs Labs: 11/02/16 07:05 11/02/16 07:05 - Constitutional Appears: Non-toxic, Cachectic, Chronically Ill - Head Exam Head Exam: NORMOCEPHALIC - Eye Exam Eye Exam: absent: Scleral icterus - ENT Exam ENT Exam: Mucous Membranes Dry - Neck Exam Neck Exam: absent: Lymphadenopathy - Respiratory Exam Respiratory Exam: Decreased Breath Sounds, Clear to Ausculation Bilateral - Cardiovascular Exam Cardiovascular Exam: REGULAR RHYTHM, +S1, +S2 - GI/Abdominal Exam GI & Abdominal Exam: Distended, Soft. absent: Tenderness - Rectal Exam Rectal Exam: Deferred - Exam Exam: NORMAL INSPECTION - Extremities Exam Extremities Exam: absent: Pedal Edema - Back Exam Back Exam: absent: CVA tenderness (L), CVA tenderness (R) - Neurological Exam Neurological Exam: Alert, Awake, Oriented x3 Assessment and Plan (1) Hx of nephrostomy Status: Chronic (2) Abdominal pain Status: Acute (3) Small bowel obstruction Status: Acute - Assessment and Plan (Free Text) Plan: consider antifungal rx follow uy[ dr Knutson
--- NOTE | 2017-01-05 14:46 | SPECPROC ---
Date of Procedure:11/01/2016 Procedure: 1. Right and left nephrostogram, CPT 56079. 2. Exchange of right percutaneous nephrostomy tubes, CPT 49989 3. Exchange of left percutaneous nephrostomy tubes, CPT 73752-09 Medications: The patient was sedated by anesthesiologist along with physiologic monitoring, 10 cc of 2% percent lidocaine. HISTORY: Bilateral ureteral obstruction, bilateral percutaneous nephrostomy tube. TECHNIQUE: Following informed consent the procedure time-out, patient was placed prone on the interventional table. The patient's right and left percutaneous nephrostomy tubes and surrounding skin were prepped and draped in the usual sterile fashion. Spot radiographs show the presence of right and left percutaneous nephrostomy tube. Dilute contrast injected into the left percutaneous nephrostomy tube showed moderate right and left hydronephrosis. The nephrostomy tube was exchanged over a guidewire. Antegrade nephrostogram showed long segment stricture of the left ureter and occluded right ureter distally. A new 8 Micronesian nephrostomy tube was advanced over the wire and formed within the left renal pelvis. The tube was secured to patient's skin with 2-0 Prolene and a dressing applied. Dilute contrast injected to the right percutaneous nephrostomy tube showed moderate hydronephrosis. Again the nephrostomy tube was exchanged over wire for a new 8 Micronesian nephrostomy tube formed within the renal pelvis. The tube was secured to patient's skin with 2 0 Prolene sutures. IMPRESSION: Right and left antegrade nephrostogram showed moderate hydronephrosis on the left and moderate hydronephrosis on the right. Placement of new 8 Micronesian right and left percutaneous nephrostomy tubes.
== END 2016-11-02 18:45 | disposition home or self-care (01) | DRG 552 ==
LOC: C.ER 12:44 → C.9E 19:29 → C.5T 20:01
PROVIDERS: ADMIT Internal Medicine Nephrology; ATTEND Internal Medicine Nephrology
PROC: 0T25X0Z Change Drainage Device in Kidney, External Approach (ICD-10-PCS; principal; 2016-11-01)
PROC: 0T25X0Z Change Drainage Device in Kidney, External Approach (ICD-10-PCS; 2016-11-01)
PROC: BT04YZZ Plain Radiography of Kidneys, Ureters and Bladder using Other Contrast (ICD-10-PCS; 2016-11-01)
PROC: BT04YZZ Plain Radiography of Kidneys, Ureters and Bladder using Other Contrast (ICD-10-PCS; 2016-11-01)
DX: K56.7 Ileus, unspecified (principal); B20 Human immunodeficiency virus [HIV] disease; I13.0 Hypertensive heart and chronic kidney disease with heart failure and stage 1 through stage 4 chronic kidney disease, or unspecified chronic kidney disease; I50.9 Heart failure, unspecified; N13.1 Hydronephrosis with ureteral stricture, not elsewhere classified; B36.9 Superficial mycosis, unspecified; N18.9 Chronic kidney disease, unspecified; J44.9 Chronic obstructive pulmonary disease, unspecified; D64.9 Anemia, unspecified; Z93.6 Other artificial openings of urinary tract status; F32.9 Major depressive disorder, single episode, unspecified; J45.909 Unspecified asthma, uncomplicated; Z85.41 Personal history of malignant neoplasm of cervix uteri; E78.00 Pure hypercholesterolemia, unspecified; E78.5 Hyperlipidemia, unspecified; M81.0 Age-related osteoporosis without current pathological fracture; Z87.891 Personal history of nicotine dependence; Z93.3 Colostomy status; K29.70 Gastritis, unspecified, without bleeding

== ENCOUNTER 2016-12-05 13:52 | Emergency (ER) | payer MEDICAID ==
[2016-12-05 13:52] VITALS: BMI 23.7
[2016-12-05 14:11] VITALS: RESP 20
--- NOTE | 2016-12-05 14:27 | C.PDOC ---
Time Seen by Provider: 12/05/16 14:24 Chief Complaint (Nursing): Shortness Of Breath Past Medical History Vital Signs: Last Vital Signs Temp 98.1 F 12/05/16 14:08 Pulse 86 12/05/16 14:08 Resp 20 12/05/16 14:08 BP 155/92 H 12/05/16 14:08 Pulse Ox 99 12/05/16 14:08 - Medical History PMH: Anemia, Anxiety, Arthritis, Asthma, CHF, COPD, Depression, Gastritis, HIV, HTN, Hypercholesterolemia, Hyperlipidemia, Kidney Stones, Malignancy (Cervical ( 2000)), Osteoporosis, Pancreatitis, Peripheral Edema, Chronic Kidney Disease Surgical History: Cholecystectomy, Endoscopy - [facility] Procedures CHANGE DRAINAGE DEVICE IN KIDNEY, EXTERNAL APPROACH (10/25/16) CYSTOSCOPY NEC (08/07/14) DILATION OF LEFT COMMON ILIAC VEIN, PERCUTANEOUS APPROACH (05/04/16) DILATION OF LEFT FEMORAL VEIN, PERCUTANEOUS APPROACH (05/04/16) FLUOROSCOPY OF BLADDER (09/25/16) INSERTION OF INTRALUM DEV INTO INF VENA CAVA, PERC APPROACH (05/04/16) INSERTION OF TOTALLY IMPLANTABLE VASC ACCESS DEVIC (10/02/03) INSPECTION OF BLADDER, ENDO (09/25/16) INTRAVENOUS PYELOGRAM (09/03/14) INTRODUCE OTH THROMBOLYTIC IN PERIPH VEIN, PERC (05/04/16) NEPHROSTOMY (06/26/14) PACKED CELL TRANSFUSION (11/20/14) PLAIN RADIOGRAPHY OF INFERIOR VENA CAVA USING OTHER CONTRAST (05/04/16) RADIOGRAPHY OF KIDNEY, URETER & BLADDER USING OTH CONTRAST (10/25/16) REMOV URETERAL DRAIN (09/26/14) REPLACE NEPHROSTOMY TUBE (10/31/14) RETROGRADE PYELOGRAM (01/15/15) URETERAL CATHETERIZATION (01/15/15) VAGINOSCOPY (05/30/14) VULVAR BIOPSY (02/07/14) Family History: States: Unknown Family Hx - Social History Hx Tobacco Use: No Hx Alcohol Use: No - Immunization History Hx Tetanus Toxoid Vaccination: Yes (2011) Hx Influenza Vaccination: Yes (04/2016) Hx Pneumococcal Vaccination: Yes (2011) ED Course And Treatment O2 Sat by Pulse Oximetry: 99
--- NOTE | 2016-12-05 14:41 | C.PDOC ---
History Of Present Illness 61-year-old female, PMHx includes Anemia, Anxiety, Arthritis, Asthma, CHF, COPD , Depression, Gastritis, HIV, Hypertension, Hypercholesterolemia, Hyperlipidemia , Osteoporosis, Pancreatitis, and Peripheral Edema, presents to the emergency department with complaints of an asthma exacerbation x1 week. Patient notes no relief w/ home MDI or nebulizer treatment. Patient complaining of persistent chest tightness. ASTHMA EXAC X 1 WEEK. NO RELIEF W HOME MDI OR NEB. NO FEVER. CO PERSIST CHEST TIGHTNESS. past medical history of HIV, hypertension, cervical cancer, pancreatitis, peripheral edema, CHF, COPD, chronic kidney disease, depression, and gastritis EXAM NARD NONTOXIC LUNGS CTA B/L NO W/R/R NO RETRACTION REMAINDER NEG Time Seen by Provider: 12/05/16 14:24 Chief Complaint (Nursing): Shortness Of Breath History Per: Patient History/Exam Limitations: no limitations Onset/Duration Of Symptoms: Days Current Symptoms Are (Timing): Still Present Past Medical History Reviewed: Historical Data, Nursing Documentation, Vital Signs Vital Signs: Last Vital Signs Temp 98.1 F 12/05/16 14:08 Pulse 88 12/05/16 15:15 Resp 20 12/05/16 14:08 BP 155/92 H 12/05/16 14:08 Pulse Ox 99 12/05/16 17:05 - Medical History PMH: Anemia, Anxiety, Arthritis, Asthma, CHF, COPD, Depression, Gastritis, HIV, HTN, Hypercholesterolemia, Hyperlipidemia, Kidney Stones, Malignancy (Cervical ( 2000)), Osteoporosis, Pancreatitis, Peripheral Edema, Chronic Kidney Disease Surgical History: Cholecystectomy, Endoscopy - [facility] Procedures CHANGE DRAINAGE DEVICE IN KIDNEY, EXTERNAL APPROACH (10/25/16) CYSTOSCOPY NEC (08/07/14) DILATION OF LEFT COMMON ILIAC VEIN, PERCUTANEOUS APPROACH (05/04/16) DILATION OF LEFT FEMORAL VEIN, PERCUTANEOUS APPROACH (05/04/16) FLUOROSCOPY OF BLADDER (09/25/16) INSERTION OF INTRALUM DEV INTO INF VENA CAVA, PERC APPROACH (05/04/16) INSERTION OF TOTALLY IMPLANTABLE VASC ACCESS DEVIC (10/02/03) INSPECTION OF BLADDER, ENDO (09/25/16) INTRAVENOUS PYELOGRAM (09/03/14) INTRODUCE OTH THROMBOLYTIC IN PERIPH VEIN, PERC (05/04/16) NEPHROSTOMY (06/26/14) PACKED CELL TRANSFUSION (11/20/14) PLAIN RADIOGRAPHY OF INFERIOR VENA CAVA USING OTHER CONTRAST (05/04/16) RADIOGRAPHY OF KIDNEY, URETER & BLADDER USING OTH CONTRAST (10/25/16) REMOV URETERAL DRAIN (09/26/14) REPLACE NEPHROSTOMY TUBE (10/31/14) RETROGRADE PYELOGRAM (01/15/15) URETERAL CATHETERIZATION (01/15/15) VAGINOSCOPY (05/30/14) VULVAR BIOPSY (02/07/14) Family History: States: Unknown Family Hx - Social History Hx Tobacco Use: No Hx Alcohol Use: No - Immunization History Hx Tetanus Toxoid Vaccination: Yes (2011) Hx Influenza Vaccination: Yes (04/2016) Hx Pneumococcal Vaccination: Yes (2011) Review Of Systems Except As Marked, All Systems Reviewed And Found Negative. Constitutional: Negative for: Fever, Chills Cardiovascular: Negative for: Chest Pain, Palpitations Respiratory: Positive for: Shortness of Breath Gastrointestinal: Negative for: Nausea, Vomiting Musculoskeletal: Negative for: Back Pain Physical Exam - Physical Exam Appears: Non-toxic, No Acute Distress, Other (NARD) Nose: Normal Oral Mucosa: Moist Neck: Normal ROM Cardiovascular: Rhythm Regular, No Murmur Respiratory: Normal Breath Sounds, No Accessory Muscle Use, No Rales, No Rhonchi , No Wheezing Extremity: Normal ROM, No Pedal Edema Neurological/Psych: Oriented x3 ED Course And Treatment - Laboratory Results Result Diagrams: 12/05/16 16:00 12/05/16 16:00 O2 Sat by Pulse Oximetry: 99 - Radiology CXR: Interpreted by Me, Viewed By Me CXR Interpretation: Yes: No Acute Disease Progress - Re-Evaluation Re-evaluation Note: 12/05/16 16:05 STILL CO PERSIST OSCAR. PS GETS OSCAR "ALOT", SOMETIMES "SEVERE MIGRAINE". STATES CURRENT OSCAR SIM TO PRIOR. VSS. LABS PENDING 12/05/16 17:05 CO [address] WILL [address], MORPHINE. REASSESS 12/05/16 17:[address] HEAD NEG. REQUESTING DC HOME - Data Reviewed Data Reviewed: Lab, Diagnostic imaging, Old records Disposition Counseled Patient/Family Regarding: Studies Performed, Diagnosis, Need For Followup, Rx Given - Disposition Referrals: YOUR,PMD [Other] Disposition: HOME/ ROUTINE Disposition Time: 18:00 Condition: IMPROVED Prescriptions: predniSONE [Prednisone] 60 mg PO DAILY #12 tab Instructions: Asthma (ED), Acute Headache (ED) - Clinical Impression Clinical Impression: Asthma exacerbation, mild, Headache - Scribe Statement The provider has reviewed the documentation as recorded by the Tomeka Vázquez All medical record entries made by the Cooperibmaggie were at my direction and personally dictated by me. I have reviewed the chart and agree that the record accurately reflects my personal performance of the history, physical exam, medical decision making, and the department course for this patient. I have also personally directed, reviewed, and agree with the discharge instructions and disposition.
[2016-12-05] MEDS: Albuterol-Ipratrop 3 mg / 0.5 (3 ml) UD IH SCH ×3 (15:15→15:45)
[2016-12-05] MEDS ORDERED: Albuterol-Ipratrop 3 mg / 0.5 (3 ml) UD ONE (15:21)
--- NOTE | 2016-12-05 15:57 | RAD ---
HISTORY: SOB COMPARISON: All 04/13/2016. Stop TECHNIQUE: Chest PA and lateral FINDINGS: LUNGS: No active pulmonary disease. PLEURA: No significant pleural effusion identified. No pneumothorax apparent. CARDIOVASCULAR: No radiographic findings to suggest acute or significant cardiovascular disease. PICC line in satisfactory position unchanged compared to the prior study and a left-sided SVC. OSSEOUS STRUCTURES: No significant abnormalities. VISUALIZED UPPER ABDOMEN: Normal. OTHER FINDINGS: None. IMPRESSION: No active disease. No significant interval change compared to the prior examination(s). Concordant results with the preliminary interpretation rendered by the emergency department physician procedure.
[2016-12-05 16:09] LABS: BASO % 0.2 % (0.0-2.0); EOS # 0.1 K/uL (0.0-0.7); EOS % 0.7 % (0.0-4.0); HEMATOCRIT 32.7 % (34.0-47.0); LYMPH # 2.4 K/uL (1.0-4.3); MEAN CELL VOLUME 80.6 fL (81.0-99.0); MEAN CORPUSCULAR HEMOGLOBIN 25.8 pg (27.0-31.0); MEAN PLATELET VOLUME 10.7 fL (7.2-11.7); MONO # 0.7 K/uL (0.0-0.8); MONO % 6.9 % (0.0-10.0); RED CELL DISTRIBUTION WIDTH 17.1 % (11.5-14.5); WHITE BLOOD COUNT 9.8 K/uL (4.8-10.8)
[2016-12-05 16:19] LABS: CHLORIDE 101 mmol/L (98-107)
[2016-12-05 16:20] LABS: POTASSIUM 4.2 mmol/L (3.6-5.2); SODIUM 135 mmol/L (132-148)
[2016-12-05 16:22] LABS: CARBON DIOXIDE 24 mmol/L (22-30); GFR AFRICAN-AMERICAN 43
[2016-12-05 16:23] LABS: BLOOD UREA NITROGEN 20 mg/dL (7-17); CALCIUM 8.2 mg/dl (8.6-10.4); GLUCOSE,RANDOM 104 mg/dL (65-105)
[2016-12-05] MEDS ORDERED: Morphine 4 MG/ML VIAL ONE (17:13)
--- NOTE | 2016-12-05 17:51 | CT ---
EXAM: CT Head Without Intravenous Contrast CLINICAL HISTORY: 61 years old, female; Signs and symptoms and condition or disease; Headache; Dizziness; Additional info: Headache ho cervical cancer TECHNIQUE: Axial computed tomography images of the head/brain without intravenous contrast. This CT exam was performed using one or more of the following dose reduction techniques: automated exposure control, adjustment of the mA and/or kV according to patient size, and/or use of iterative reconstruction technique. EXAM DATE/TIME: 12/05/2016 5:05 PM COMPARISON: There are no prior studies for comparison. FINDINGS: Brain: Ventricles are normal in size and configuration. There is no midline shift. There is mild prominence of sulci and gyri. There are no intra-axial or extra-axial mass lesions or areas of hemorrhage. There are no abnormal fluid collections. Haro-white differentiation is maintained. Ventricles: See above. Bones: Cranial vault is intact. Soft tissues: unremarkable Sinuses: There is mucoperiosteal thickening in the sinuses. There is partial opacification of both frontal sinuses. Maxillary sinuses are incompletely imaged Ears and mastoids: Middle ears and left mastoid are unremarkable. There is sclerosis of the right mastoid tip. Orbits: Orbital contents are unremarkable. IMPRESSION: Sinus disease; no acute intracranial abnormality
[2016-12-05 18:20] VITALS: BP 144/86; PULSE 82; TEMP 98.3; O2SAT 100
--- NOTE | 2016-12-07 01:57 | CARD ---
APPROVED REPORT EKG Measurement Heart [id number] <Conclusion> Normal sinus rhythm Normal ECG
== END 2016-12-05 18:21 | disposition home or self-care (01) ==
LOC: C.ER 13:52
DX: J45.901 Unspecified asthma with (acute) exacerbation (principal); R51 Headache
CPT/HCPCS: 70450; 71020; 80048; 84484; 85025; 85378; 93005; 94150; 94640; 96372; 96374; 96375; 99284; J2270; J2765; J3030

== ENCOUNTER 2017-01-04 11:29 | Inpatient (IN) | payer MEDICAID ==
[2017-01-04 11:29] VITALS: BMI 23.7
--- NOTE | 2017-01-04 12:19 | C.PDOC ---
History Of Present Illness 61 y/o female presents to the ED for evaluation of recurrent nephrostomy tube infection. Visiting nurse changed tube yesterday and found insertion site to be foul smelling. Pt reports increased pain to left of insertion site. Last changed in November, usually changed every 3 months or sooner if signs of infection. Denies fever, chills or any other complaints. Time Seen by Provider: 01/04/17 11:57 Chief Complaint (Nursing): Female Genitourinary History Per: Patient History/Exam Limitations: no limitations Onset/Duration Of Symptoms: Hrs Current Symptoms Are (Timing): Still Present Severity: Moderate Quality Of Discomfort: "Pain" Associated Symptoms: denies: Fever Recent travel outside of the [place]: No Past Medical History Reviewed: Historical Data, Nursing Documentation, Vital Signs Vital Signs: Last Vital Signs Temp 98.7 F 01/04/17 11:32 Pulse 80 01/04/17 11:32 Resp 20 01/04/17 11:32 BP 172/92 H 01/04/17 11:32 Pulse Ox 97 01/04/17 12:53 - Medical History PMH: Anemia, Anxiety, Arthritis, Asthma, CHF, COPD, Depression, Gastritis, HIV, HTN, Hypercholesterolemia, Hyperlipidemia, Kidney Stones, Malignancy (Cervical ( 2000)), Osteoporosis, Pancreatitis, Peripheral Edema, Chronic Kidney Disease Surgical History: Cholecystectomy, Endoscopy - [facility] Procedures CHANGE DRAINAGE DEVICE IN KIDNEY, EXTERNAL APPROACH (10/25/16) CYSTOSCOPY NEC (08/07/14) DILATION OF LEFT COMMON ILIAC VEIN, PERCUTANEOUS APPROACH (05/04/16) DILATION OF LEFT FEMORAL VEIN, PERCUTANEOUS APPROACH (05/04/16) FLUOROSCOPY OF BLADDER (09/25/16) INSERTION OF INTRALUM DEV INTO INF VENA CAVA, PERC APPROACH (05/04/16) INSERTION OF TOTALLY IMPLANTABLE VASC ACCESS DEVIC (10/02/03) INSPECTION OF BLADDER, ENDO (09/25/16) INTRAVENOUS PYELOGRAM (09/03/14) INTRODUCE OTH THROMBOLYTIC IN PERIPH VEIN, PERC (05/04/16) NEPHROSTOMY (06/26/14) PACKED CELL TRANSFUSION (11/20/14) PLAIN RADIOGRAPHY OF INFERIOR VENA CAVA USING OTHER CONTRAST (05/04/16) RADIOGRAPHY OF KIDNEY, URETER & BLADDER USING OTH CONTRAST (10/25/16) REMOV URETERAL DRAIN (09/26/14) REPLACE NEPHROSTOMY TUBE (10/31/14) RETROGRADE PYELOGRAM (01/15/15) URETERAL CATHETERIZATION (01/15/15) VAGINOSCOPY (05/30/14) VULVAR BIOPSY (02/07/14) Family History: States: Unknown Family Hx - Social History Hx Tobacco Use: No Hx Alcohol Use: No Hx Substance Use: No - Immunization History Hx Tetanus Toxoid Vaccination: Yes (2011) Hx Influenza Vaccination: Yes (04/2016) Hx Pneumococcal Vaccination: Yes (2011) Review Of Systems Except As Marked, All Systems Reviewed And Found Negative. Constitutional: Negative for: Fever Skin: Positive for: Other (pain to left of nephrostomy tube, foul smelling insertion site) Physical Exam - Physical Exam Appears: Non-toxic, No Acute Distress Skin: Warm, Dry Head: Atraumatic, Normacephalic Neck: Normal, Normal ROM, Supple Chest: Symmetrical Cardiovascular: Rhythm Regular, No Murmur Respiratory: Normal Breath Sounds, No Rales, No Rhonchi, No Wheezing Gastrointestinal/Abdominal: Normal Exam, Soft, No Tenderness Back: Other (dressing to bilateral nephrostomy tube site with tenderness, mostly left flank) Extremity: Bilateral: Atraumatic Neurological/Psych: Oriented x3, Normal Speech ED Course And Treatment - Laboratory Results Result Diagrams: 01/04/17 12:45 ECG: Interpreted By Me, Viewed By Me ECG Rhythm: Sinus Rhythm Rate From EC (BPM) O2 Sat by Pulse Oximetry: 97 (room air) Pulse Ox Interpretation: Normal - Radiology CXR: Interpreted by Me CXR Interpretation: Yes: No Acute Disease Progress - Re-Evaluation Re-evaluation Note: 01/04/17 12:28 D/W DR SUMMERS STATES WILL BE OUT OF TOWN. WILL CONSULT, REQUESTS ADMISSION TO DR HAMILTON 01/04/17 12:42 D/W DR HAMILTON AWARE OF ER FINDINGS WILL ADMIT - Data Reviewed Data Reviewed: Lab, Diagnostic imaging, Old records - Continuity of Care Discussed patient case with:: Other Discussed pt. case with fitness consultant/specialty: Urology Medical Decision Making Medical Decision Making: Plan: * EKG * CXR * labs * UA * IV fluids * morphine Disposition Counseled Patient/Family Regarding: Studies Performed, Diagnosis - Disposition Disposition: HOSPITALIZED Disposition Time: 12:42 Condition: STABLE - POA Present On Arrival: None - Clinical Impression Clinical Impression: Infection associated with nephrostomy catheter, Flank pain - Scribe Statement The provider has reviewed the documentation as recorded by the Tomeka Bonilla Provider Attestation: All medical record entries made by the Tomeka were at my direction and personally dictated by me. I have reviewed the chart and agree that the record accurately reflects my personal performance of the history, physical exam, medical decision making, and the department course for this patient. I have also personally directed, reviewed, and agree with the discharge instructions and disposition. Decision To Admit - Pt Status Changed To: Hospital Disposition Of: Observation - . Bed Request Type: Regular Admitting Physician: Lamberto Hamilton Patient Diagnosis: Infection associated with nephrostomy catheter, Flank pain
[2017-01-04] MEDS ORDERED: Albuterol 0.083% Inhal Sol (2.5 mg/3 mL) UD IH PRN ×2 (12:42→12:59)
--- NOTE | 2017-01-04 12:55 | CP.PCM.HP ---
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 Patient states she has chronic microcytic anemia and Gastritis managed by her Pressing Machine Operator, Dr. Wong for which she takes omeprazole. She received Intravenous Iron and blood transfusions, last given 2013. she is now with recurent urine infection, had antibiotics as out pt, also an admission for DVT, thrombectomy from femoral vein, then eliquis. referred by "Dr Knutson"for admission , IV antibiotics and exchange nephrostomy tubes Present on Admission - Present on Admission Any Indicators Present on Admission: No Review of Systems - Constitutional Constitutional: Anorexia, Weakness - EENT Eyes: absent: Discharge Ears: absent: Ear Discharge, Dizziness Nose/Mouth/Throat: absent: Epistaxis - Cardiovascular Cardiovascular: absent: Acrocyanosis, Chest Pain, Diaphoresis, Palpitations, Pedal Edema, Syncope - Respiratory Respiratory: absent: Cough, Dyspnea, Hemoptysis - Gastrointestinal Gastrointestinal: Abdominal Pain - Genitourinary Genitourinary: absent: Change in Urinary Stream Past Patient History - Infectious Disease Hx of Infectious Diseases: None - Past Medical History & Family History Past Medical History?: Yes - Past Social History Smoking Status: Former Smoker - CARDIAC Hx Congestive Heart Failure: Yes Hx Hypercholesterolemia: Yes Hx Hypertension: Yes Hx Peripheral Edema: Yes - PULMONARY Hx Asthma: Yes Hx Chronic Obstructive Pulmonary Disease (COPD): Yes - NEUROLOGICAL Hx Neurological Disorder: Yes Hx Syncope: Yes Other/Comment: HEADACHES - HEENT Hx HEENT Problems: Yes Hx Cataracts: Yes (BILATERAL) - RENAL Hx Chronic Kidney Disease: Yes Hx Kidney Stones: Yes - HEMATOLOGICAL/ONCOLOGICAL Hx Anemia: Yes Hx Human Immunodeficiency Virus (HIV): Yes - MUSCULOSKELETAL/RHEUMATOLOGICAL Hx Arthritis: Yes Hx Osteoporosis: Yes - GASTROINTESTINAL Hx Gastritis: Yes Hx Pancreatitis: Yes - GENITOURINARY/GYNECOLOGICAL Other/Comment: NEPHROSTOMY TUBES - PSYCHIATRIC Hx Anxiety: Yes Hx Depression: Yes Hx Substance Use: No - SURGICAL HISTORY Hx Cholecystectomy: Yes - ANESTHESIA Hx Anesthesia: Yes Hx Anesthesia Reactions: Yes (Hard to wake up even with sedation) Hx Malignant Hyperthermia: No Meds Allergies/Adverse Reactions: Allergies Allergy/AdvReac Type Severity Reaction Status Date / Time sulfamethoxazole Allergy Intermediate ITCHING Verified 01/04/17 11:36 [From Bactrim] aloe vera Allergy ITCHING Verified 01/04/17 11:36 Sulfa (Sulfonamide Allergy ITCHING Verified 01/04/17 11:36 Antibiotics) Physical Exam - Constitutional Appears: Non-toxic - Head Exam Head Exam: ATRAUMATIC - Eye Exam Eye Exam: EOMI - ENT Exam ENT Exam: Mucous Membranes Moist - Respiratory Exam Respiratory Exam: Clear to Auscultation Bilateral. absent: Rales - Cardiovascular Exam Cardiovascular Exam: REGULAR RHYTHM. absent: Systolic Murmur - GI/Abdominal Exam GI & Abdominal Exam: Normal Bowel Sounds. absent: Organomegaly - Rectal Exam Rectal Exam: Deferred - Extremities Exam Extremities exam: Positive for: normal capillary refill. Negative for: calf tenderness - Neurological Exam Neurological exam: Alert, Oriented x3 - Psychiatric Exam Psychiatric exam: Normal Affect - Skin Skin Exam: Dry Results - Vital Signs Recent Vital Signs: Last Vital Signs Temp 98.7 F 01/04/17 11:32 Pulse 80 01/04/17 11:32 Resp 20 01/04/17 11:32 BP 172/92 H 01/04/17 11:32 Pulse Ox 97 01/04/17 12:53 - Labs Result Diagrams: 01/04/17 12:45 01/04/17 12:45 Assessment & Plan (1) Infection associated with nephrostomy catheter Status: Acute (2) Complicated urinary tract infection Status: Acute (3) Immunocompromised state Status: Chronic (4) HIV disease Status: Chronic Decision To Admit - Pt Status Changed To: Hospital Disposition Of: Inpatient - Admit Certification Admit to Inpatient:: After my assessment, the patient will require hospitalization for at least two midnights. This is because of the severity of symptoms shown, intensity of services needed, and/or the medical risk in this patient being treated as an outpatient. - InPatient: Physician Admission Certification:: yes - . Bed Request Type: Regular
[2017-01-04 12:56] LABS: BASO % 0.3 % (0.0-2.0); EOS # 0.1 K/uL (0.0-0.7); EOS % 1.2 % (0.0-4.0); HEMOGLOBIN 10.2 g/dL (11.0-16.0); LYMPH % 24.2 % (20.0-40.0); MEAN CELL VOLUME 80.6 fL (81.0-99.0); MEAN CORPUSCULAR HEMOGLOBIN 25.2 pg (27.0-31.0); MEAN CORPUSCULAR HGB CONC 31.3 g/dL (33.0-37.0); MEAN PLATELET VOLUME 10.3 fL (7.2-11.7); MONO # 0.7 K/uL (0.0-0.8); MONO % 8.6 % (0.0-10.0); NEUT # 5.5 K/uL (1.8-7.0); NEUT % 65.7 % (50.0-75.0); RBC 4.05 Mil/uL (3.80-5.20); WHITE BLOOD COUNT 8.4 K/uL (4.8-10.8)
[2017-01-04] MEDS ORDERED: Morphine 4 MG/ML VIAL ONE ×2 (13:01)
[2017-01-04 13:02] LABS: INR 1.3; PROTHROMBIN TIME 14.7 SECONDS (9.7-12.2)
[2017-01-04 13:07] LABS: ALBUMIN 3.6 g/dL (3.5-5.0)
--- NOTE | 2017-01-04 13:31 | RAD ---
PROCEDURE: CHEST RADIOGRAPH, 1 VIEW HISTORY: NEPHROSTOMY PAIN COMPARISON: 12/05/2016 FINDINGS: The left PICC line terminates in a left-sided SVC. LUNGS: The lungs are well inflated and clear. PLEURA: No pneumothorax or pleural fluid seen. CARDIOVASCULAR: Normal. OSSEOUS STRUCTURES: No significant abnormalities. VISUALIZED UPPER ABDOMEN: Normal. OTHER FINDINGS: None. IMPRESSION: Stable position of left PICC line. No active disease.
[2017-01-04] MEDS: Pantoprazole 40 mg EC Tab PO SCH (13:33)
--- NOTE | 2017-01-04 13:53 | CP.PCM.CON ---
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 PATIENT HAS HAD MULTIPLE HOSPITALIZATIONS AT [facility] FOR COMPLICATED UTIS AND FOR CHANGE OF BILATERAL NEPHROSTOMY TUBES EVERY 3 MONTHS. PATIENT IS PRESENTLY REFERRED BY DR. SUMMERS FOR CHANGE OF NEPHROSTOMY TUBES HE NOTICED URINE WAS CLOUDY AND THERE WAS DRAINAGE FROM THE EXIT SITES OF BOTH RIGHT AND LEFT NT.PATIENT LAST HAD HER NEPHROSTOMY TUBES REPLACED BY IR ON . PATIENT ALSO COMPLAINS OF NAUSEA SECONDARY TO BY MOUTH CIPRO PRESCRIBED TO HER BY . Patient also has history of DVT, thrombectomy from femoral vein and presently on eliquis. Patient also has chronic microcytic anemia and gastritis. INFECTIOUS DISEASE CONSULTATION REQUESTED BY DR. HAMILTON. Patient is presently on TIVICAY. Norvir, Prezista HAART therapy and is very compliant with her medications. Her last viral load was undetectable and his CD4 count WAS MORE THAN 500. PMHx: see HPI. Nephrostomy and colostomy were done due to damages from chemoradiation for cervical CA. Pt visited PMD for routine HIV follow up on 2015 and was told viral count undetectable. CD4 145 on 08/19/14 per record. PSHx: Cervical CA resection 2000, colostomy bag 2009. FMHx: both parents from [place]. Sister and brother had [place]. Social: former smoker, 5 cigarettes to 1 pack a day for 10 years, stopped 2011. Denied ETOH or drugs use. Lives alone, unemployeed. PMD: Dr. Rojas Nichole Review of Systems - Constitutional Constitutional: absent: Chills, Fever - EENT Eyes: absent: Floaters Nose/Mouth/Throat: absent: Dysphagia, Mouth Lesions - Cardiovascular Cardiovascular: absent: Chest Pain, Dyspnea, Palpitations, Pedal Edema - Respiratory Respiratory: absent: Cough, Hemoptysis - Gastrointestinal Gastrointestinal: Nausea. absent: Abdominal Pain, Diarrhea, Odynophagia, Vomiting - Genitourinary Genitourinary: Freq UTI, Hx /Renal Surgery - Reproductive: Female Reproductive:Female: S/P Hysterectomy - Neurological Neurological: absent: Headaches - Psychiatric Psychiatric: Anxiety - Hematologic/Lymphatic Hematologic: As Per HPI. absent: Lymphadenopathy Past Patient History - Infectious Disease Hx of Infectious Diseases: None - Past Medical History & Family History Past Medical History?: Yes - Past Social History Smoking Status: Former Smoker - CARDIAC Hx Congestive Heart Failure: Yes Hx Hypercholesterolemia: Yes Hx Hypertension: Yes Hx Peripheral Edema: Yes - PULMONARY Hx Asthma: Yes Hx Chronic Obstructive Pulmonary Disease (COPD): Yes - NEUROLOGICAL Hx Neurological Disorder: Yes Hx Syncope: Yes Other/Comment: HEADACHES - HEENT Hx HEENT Problems: Yes Hx Cataracts: Yes (BILATERAL) - RENAL Hx Chronic Kidney Disease: Yes Hx Kidney Stones: Yes - HEMATOLOGICAL/ONCOLOGICAL Hx Anemia: Yes Hx Human Immunodeficiency Virus (HIV): Yes - MUSCULOSKELETAL/RHEUMATOLOGICAL Hx Arthritis: Yes Hx Falls: No Hx Osteoporosis: Yes - GASTROINTESTINAL Hx Gastritis: Yes Hx Pancreatitis: Yes - GENITOURINARY/GYNECOLOGICAL Other/Comment: NEPHROSTOMY TUBES - PSYCHIATRIC Hx Anxiety: Yes Hx Depression: Yes Hx Substance Use: No - SURGICAL HISTORY Hx Cholecystectomy: Yes - ANESTHESIA Hx Anesthesia: Yes Hx Anesthesia Reactions: Yes (Hard to wake up even with sedation) Hx Malignant Hyperthermia: No Meds Allergies/Adverse Reactions: Allergies Allergy/AdvReac Type Severity Reaction Status Date / Time sulfamethoxazole Allergy Intermediate ITCHING Verified 01/04/17 11:36 [From Bactrim] aloe vera Allergy ITCHING Verified 01/04/17 11:36 Sulfa (Sulfonamide Allergy ITCHING Verified 01/04/17 11:36 Antibiotics) - Medications Medications: Current Medications Acetaminophen (Tylenol 325mg Tab) 650 mg PO Q6 PRN PRN Reason: Fever >100.4 F Albuterol Sulfate (Albuterol 0.083% Inhal Kristina (2.5 Mg/3 Ml) Ud) 0.65732 mg IH PRN PRN PRN Reason: Shortness of Breath Apixaban (Eliquis) 5 mg PO BID [facility] Darunavir (Prezista) 800 mg PO DAILY [facility] Last Admin: 01/04/17 13:33 Dose: 800 mg Dicyclomine HCl (Bentyl) 20 mg PO TID [facility] Dolutegravir Sodium (Tivicay) 50 mg PO DAILY [facility] Last Admin: 01/04/17 13:33 Dose: 50 mg Famciclovir (Famvir) 500 mg PO DAILY [facility] Last Admin: 01/04/17 13:33 Dose: 500 mg Ketoconazole (Nizoral) 0 gm TOP BID [facility] Loratadine (Claritin) 10 mg PO DAILY [facility] Last Admin: 01/04/17 13:33 Dose: 10 mg Losartan Potassium (Cozaar) 100 mg PO DAILY [facility] Last Admin: 01/04/17 13:33 Dose: 100 mg Metoprolol Tartrate (Lopressor) 100 mg PO HS [facility] Montelukast Sodium (Singulair) 10 mg PO HS [facility] Ondansetron HCl (Zofran Inj) 4 mg IVP Q6 PRN PRN Reason: Nausea/Vomiting Oxycodone/Acetaminophen (Percocet 5/325 Mg Tab) 1 tab PO Q4H PRN PRN Reason: Pain, moderate (4-7) Stop: 01/07/17 12:43 Pantoprazole Sodium (Protonix Ec Tab) 40 mg PO DAILY [facility] Last Admin: 01/04/17 13:33 Dose: 40 mg Ritonavir (Norvir) 100 mg PO DAILY [facility] Last Admin: 01/04/17 13:33 Dose: 100 mg Temazepam (Restoril) 15 mg PO HS [facility] Physical Exam - Constitutional Appears: No Acute Distress - Head Exam Head Exam: NORMAL INSPECTION - Eye Exam Eye Exam: EOMI, PERRL. absent: Scleral icterus - ENT Exam ENT Exam: Normal Oropharynx - Neck Exam Neck exam: Positive for: Normal Inspection - Respiratory Exam Respiratory Exam: Clear to Auscultation Bilateral, NORMAL BREATHING PATTERN - Cardiovascular Exam Cardiovascular Exam: REGULAR RHYTHM, +S1, +S2 - GI/Abdominal Exam GI & Abdominal Exam: Normal Bowel Sounds, Soft. absent: Tenderness (+VE COLOSTOMY IN PLACE.) - Extremities Exam Extremities exam: Positive for: pedal pulses present. Negative for: calf tenderness, pedal edema - Back Exam Back exam: absent: CVA tenderness (L), CVA tenderness (R) (RIGHT AND LEFT NEPHROSTOMY TUBES IN PLACE WITH DRESSING IN PLACE. MINIMAL DRAINAGE MALODOROUS ON DRESSING.) - Neurological Exam Neurological exam: Alert, CN II-XII Intact, Normal Gait, Oriented x3, Reflexes Normal - Psychiatric Exam Psychiatric exam: Normal Mood - Skin Skin Exam: Normal Color, Warm Results - Vital Signs Recent Vital Signs: Last Vital Signs Temp 98.7 F 06/28/17 11:32 Pulse 80 01/04/17 11:32 Resp 20 01/04/17 11:32 BP 172/92 H 01/04/17 11:32 Pulse Ox 97 01/04/17 13:03 - Labs Result Diagrams: 01/04/17 12:45 01/04/17 12:45 Labs: Laboratory Results - last 24 hr 01/04/17 01/04/17 01/04/17 12:45 12:45 12:45 WBC 8.4 RBC 4.05 Hgb 10.2 L Hct 32.6 L MCV 80.6 L MCH 25.2 L MCHC 31.3 L RDW 18.0 H Plt Count 164 MPV 10.3 Neut % (Auto) 65.7 Lymph % (Auto) 24.2 [place] % (Auto) 8.6 Eos % (Auto) 1.2 Baso % (Auto) 0.3 Neut # 5.5 Lymph # 2.0 [place] # 0.7 Eos # 0.1 Baso # 0.0 PT 14.7 H INR 1.3 APTT 30 Sodium 139 Potassium 3.7 Chloride 107 Carbon Dioxide 24 Anion Gap 12 BUN 17 Creatinine 1.4 H Est GFR ( Amer) 47 Est GFR (Non-Af Amer) 38 Random Glucose 85 Calcium 9.0 Total Bilirubin 0.6 AST 16 ALT 14 Alkaline Phosphatase 65 Total Protein 7.2 Albumin 3.6 Globulin 3.6 Albumin/Globulin Ratio 1.0 Lipase 130 Blood Type Antibody Screen 01/04/17 12:45 WBC RBC Hgb Hct MCV MCH MCHC RDW Plt Count MPV Neut % (Auto) Lymph % (Auto) [place] % (Auto) Eos % (Auto) Baso % (Auto) Neut # Lymph # [place] # Eos # Baso # PT INR APTT Sodium Potassium Chloride Carbon Dioxide Anion Gap BUN Creatinine Est GFR ( Amer) Est GFR (Non-Af Amer) Random Glucose Calcium Total Bilirubin AST ALT Alkaline Phosphatase Total Protein Albumin Globulin Albumin/Globulin Ratio Lipase Blood Type B POSITIVE Antibody Screen Negative - Imaging and Cardiology Chest x-ray Status: Report reviewed by me (left PICC line in place. No active disease.) Assessment & Plan (1) Infection associated with nephrostomy catheter Assessment and Plan: Pancultures UA urine culture. Start Cipro 200 mg IVPB EVERY 12 HOURLY. 01/05/17 EVALUATION IN PROGRESS. Status: Acute (2) Urinary tract infection Status: Acute (3) Asthma Status: Chronic (4) Cancer of cervix Status: Chronic (5) Colostomy in place Status: Chronic (6) HIV (human immunodeficiency virus infection) Assessment and Plan: CONTINUE HAART THERAPY BEFORE. F/U LYMPHOCYTES SUBSET STUDIES. HIV-1-PCR QUANTITATIVE LEVELS. PT ON TIVICAY. Norvir, Prezista HAART therapy. Her last viral load was undetectable and his CD4 count WAS MORE THAN 500. Status: Chronic
[2017-01-04 14:35] LABS: URINE BILIRUBIN NEGATIVE (NEGATIVE); URINE BLOOD 2+ (NEGATIVE); URINE CLARITY Turbid (Clear); URINE COLOR Yellow (YELLOW); URINE GLUCOSE (UA) NORMAL (Normal); URINE LEUKOCYTE ESTERASE 3+ Leu/uL (Negative); URINE NITRATE NEGATIVE (NEGATIVE); URINE PROTEIN 2+ mg/dL (NEGATIVE); URINE UROBILINOGEN NORMAL mg/dL (0.2-1.0)
[2017-01-04] MEDS: Ciprofloxacin 200mg/100ml D5W 100 ML IVPB SCH (15:12)
[2017-01-04] MEDS: Oxycodone/Acetaminophen 5/325 mg Tab PO PRN (23:59)
[2017-01-05 01:38] VITALS: RESP 20
[2017-01-05] MEDS: Ciprofloxacin 200mg/100ml D5W 100 ML IVPB SCH ×2 (02:03→13:51)
--- NOTE | 2017-01-05 07:47 | CARD ---
APPROVED REPORT EKG Measurement Heart [id number] <Conclusion> Normal sinus rhythm Normal ECG
[2017-01-05] MEDS: Pantoprazole 40 mg EC Tab PO SCH (09:58)
[2017-01-05] MEDS ORDERED: Albuterol-Ipratrop 3 mg / 0.5 (3 ml) UD INH PRN (11:32)
[2017-01-05] MEDS: Oxycodone/Acetaminophen 5/325 mg Tab PO PRN (12:32)
--- NOTE | 2017-01-05 14:18 | CP.PCM.PN ---
Subjective - Date & Time of Evaluation Date of Evaluation: 01/05/17 Time of Evaluation: 14:00 - Subjective Subjective: seen by ID, f/u with IR on cipro, with pain Objective - Vital Signs/Intake and Output Vital Signs (last 24 hours): Temp Pulse Resp BP Pulse Ox 98.6 F 67 20 130/90 97 01/05/17 08:40 01/05/17 08:40 01/05/17 08:40 01/05/17 08:40 01/05/17 08:40 Intake and Output: 01/05/17 01/05/17 06:59 18:59 Intake Total 250 500 Output Total 500 250 Balance -250 250 - Medications Medications: Current Medications Acetaminophen (Tylenol 325mg Tab) 650 mg PO Q6 PRN PRN Reason: Fever >100.4 F Albuterol/Ipratropium (Duoneb 3 Mg/0.5 Mg (3 Ml) Ud) 3 ml INH RQ6 PRN PRN Reason: Wheezing Apixaban (Eliquis) 2.5 mg PO BID [facility] Last Admin: 01/05/17 12:42 Dose: 2.5 mg Darunavir (Prezista) 800 mg PO DAILY [facility] Last Admin: 01/05/17 09:57 Dose: 800 mg Dicyclomine HCl (Bentyl) 20 mg PO TID [facility] Last Admin: 01/05/17 13:27 Dose: 20 mg Dolutegravir Sodium (Tivicay) 50 mg PO DAILY [facility] Last Admin: 01/05/17 09:57 Dose: 50 mg Famciclovir (Famvir) 500 mg PO DAILY [facility] Last Admin: 01/05/17 09:57 Dose: 500 mg Ciprofloxacin (Cipro 200mg/100ml D5w) 100 mls @ 67 mls/hr IVPB Q12H [facility] Last Admin: 01/05/17 13:51 Dose: 67 mls/hr Ketoconazole (Nizoral) 0 gm TOP BID [facility] Last Admin: 01/05/17 10:03 Dose: 1 applic Loratadine (Claritin) 10 mg PO DAILY [facility] Last Admin: 01/05/17 09:57 Dose: 10 mg Losartan Potassium (Cozaar) 100 mg PO DAILY [facility] Last Admin: 01/05/17 09:58 Dose: 100 mg Metoprolol Tartrate (Lopressor) 100 mg PO HS [facility] Last Admin: 01/04/17 22:50 Dose: 100 mg Montelukast Sodium (Singulair) 10 mg PO HS [facility] Oxycodone/Acetaminophen (Percocet 5/325 Mg Tab) 1 tab PO Q4H PRN PRN Reason: Pain, moderate (4-7) Stop: 01/07/17 12:43 Last Admin: 01/05/17 12:32 Dose: 1 tab Pantoprazole Sodium (Protonix Ec Tab) 40 mg PO DAILY [facility] Last Admin: 01/05/17 09:58 Dose: 40 mg Ritonavir (Norvir) 100 mg PO DAILY [facility] Last Admin: 01/05/17 09:57 Dose: 100 mg Temazepam (Restoril) 15 mg PO [facility] Last Admin: 01/04/17 22:50 Dose: Not Given - Labs Labs: 01/04/17 12:45 01/04/17 12:45 PT 14.7 SECONDS (9.7-12.2) H 01/04/17 12:45 INR 1.3 01/04/17 12:45 APTT 30 SECONDS (21-34) 01/04/17 12:45 - Constitutional Appears: Non-toxic - Head Exam Head Exam: ATRAUMATIC - Eye Exam Eye Exam: EOMI - ENT Exam ENT Exam: Mucous Membranes Moist - Neck Exam Neck Exam: absent: Lymphadenopathy, Thyromegaly - Respiratory Exam Respiratory Exam: Clear to Ausculation Bilateral. absent: Rales - Cardiovascular Exam Cardiovascular Exam: REGULAR RHYTHM. absent: Murmur - GI/Abdominal Exam GI & Abdominal Exam: Normal Bowel Sounds. absent: Organomegaly - Rectal Exam Rectal Exam: Deferred - Extremities Exam Extremities Exam: Normal Capillary Refill. absent: Calf Tenderness - Neurological Exam Neurological Exam: Alert, Oriented x3 - Psychiatric Exam Psychiatric exam: Depressed - Skin Skin Exam: Dry Assessment and Plan (1) Infection associated with nephrostomy catheter Status: Acute (2) Complicated urinary tract infection Status: Acute (3) Immunocompromised state Status: Chronic (4) HIV disease Status: Chronic
--- NOTE | 2017-01-05 22:26 | CP.PCM.PN ---
Subjective - Date & Time of Evaluation Date of Evaluation: 01/05/17 Time of Evaluation: 22:26 - Subjective Subjective: CHIEF COMPLAINTS TODAY : afebrile, c/o FEELING TIRED. C/O NAUSEA. ROS. HEENT : N. Resp : No SOB wheezing, cough Cardio : No CP, PND orthopnea GI : +VE ABDOMINAL PAIN,AND FLANK PAIN. +VE NAUSEA. 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 Musculoskel : N Ext. : Pedal pulses intact, no edema or calf pain Derm : N Psych : N. PE. Pt. is alert awake in no distress. V.S As noted in the chart Head ,ear nose,throat and eyes : Normal. Neck : Supple with normal carotids. Lungs: Clear air entry. Heart : S1 & S2 normal . . No murmur. S4 + Abd : Soft ,MILD TENDERNESS BOTH FLANKS AND LOWER ABDOMEN, with normal bowel sounds. B/L NT IN PLACE. URINE IN THE BAG CLOUDY. +VE COLOSTOMY.-STOOLS. Neuro : Moves all ext. with no localized deficit. Ext : No edema with intact pulses. Neg. calf tenderness Derm : No rashes or decubitus ulcer. Radiology/Labs . LABS REVIEWED. URINE CULTURES < +VE GNR/GPC Asssessment : -COMPLICATED UTI -HX OF BILATERAL HYDRONEPHROSIS S/P BILATERAL NT IN PLACE. -CA OF THE CERVIX S/P ILEOSTOMY.. -ACQUIRED IMMUNE DEFICIENCY SYNDROME.. - PRERENAL AZOTEMIA. -HX OF DVT/S/P IVC FILTER/ON ELAQUIS. - Plan : CONTINUE IV Cipro 200 mg IV piggybag every 12 hourly (01/04/17 ) ADD iv TYGACIL 100 MG iv 1 DOSE TODAY. 01/05/17. FOLLOW-UP CULTURES TO ADJUST ANTIBIOTICS. CONTINUE HAART THERAPY. ANALGESICS PER PMD. Objective - Vital Signs/Intake and Output Vital Signs (last 24 hours): Temp Pulse Resp BP Pulse Ox 98.2 F 68 20 112/69 97 01/05/17 15:00 01/05/17 15:00 01/05/17 15:00 01/05/17 15:00 01/05/17 15:00 Intake and Output: 01/05/17 01/06/17 18:59 06:59 Intake Total 500 Output Total 250 Balance 250 - Medications Medications: Current Medications Acetaminophen (Tylenol 325mg Tab) 650 mg PO Q6 PRN PRN Reason: Fever >100.4 F Albuterol/Ipratropium (Duoneb 3 Mg/0.5 Mg (3 Ml) Ud) 3 ml INH RQ6 PRN PRN Reason: Wheezing Apixaban (Eliquis) 2.5 mg PO BID [facility] Last Admin: 01/05/17 17:52 Dose: 2.5 mg Darunavir (Prezista) 800 mg PO DAILY [facility] Last Admin: 01/05/17 09:57 Dose: 800 mg Dicyclomine HCl (Bentyl) 20 mg PO TID [facility] Last Admin: 01/05/17 17:52 Dose: 20 mg Diphenhydramine HCl (Benadryl) 25 mg PO Q6 PRN PRN Reason: itchiness Last Admin: 01/05/17 22:18 Dose: 25 mg Dolutegravir Sodium (Tivicay) 50 mg PO DAILY [facility] Last Admin: 01/05/17 09:57 Dose: 50 mg Famciclovir (Famvir) 500 mg PO DAILY [facility] Last Admin: 01/05/17 09:57 Dose: 500 mg Hydromorphone HCl (Dilaudid) 2 mg IVP Q4H PRN PRN Reason: Pain, severe (8-10) Last Admin: 01/05/17 16:33 Dose: 2 mg Ciprofloxacin (Cipro 200mg/100ml D5w) 100 mls @ 67 mls/hr IVPB Q12H [facility] Last Admin: 01/05/17 13:51 Dose: 67 mls/hr Ketoconazole (Nizoral) 0 gm TOP BID [facility] Last Admin: 01/05/17 17:52 Dose: Not Given Loratadine (Claritin) 10 mg PO DAILY [facility] Last Admin: 01/05/17 09:57 Dose: 10 mg Losartan Potassium (Cozaar) 100 mg PO DAILY [facility] Last Admin: 01/05/17 09:58 Dose: 100 mg Metoprolol Tartrate (Lopressor) 100 mg PO HS [facility] Last Admin: 01/05/17 22:12 Dose: 100 mg Montelukast Sodium (Singulair) 10 mg PO HS [facility] Last Admin: 01/05/17 22:12 Dose: 10 mg Oxycodone/Acetaminophen (Percocet 5/325 Mg Tab) 1 tab PO Q4H PRN PRN Reason: Pain, moderate (4-7) Stop: 01/07/17 12:43 Last Admin: 01/05/17 12:32 Dose: 1 tab Pantoprazole Sodium (Protonix Ec Tab) 40 mg PO DAILY [facility] Last Admin: 01/05/17 09:58 Dose: 40 mg Ritonavir (Norvir) 100 mg PO DAILY [facility] Last Admin: 01/05/17 09:57 Dose: 100 mg Temazepam (Restoril) 15 mg PO HS [facility] Last Admin: 01/05/17 22:08 Dose: Not Given - Labs Labs: 01/04/17 12:45 01/04/17 12:45 PT 14.7 SECONDS (9.7-12.2) H 01/04/17 12:45 INR 1.3 01/04/17 12:45 APTT 30 SECONDS (21-34) 01/04/17 12:45 Assessment and Plan (1) Infection associated with nephrostomy catheter Status: Acute (2) Urinary tract infection Status: Acute (3) Asthma Status: Chronic (4) Cancer of cervix Status: Chronic (5) Colostomy in place Status: Chronic (6) HIV (human immunodeficiency virus infection) Status: Chronic
[2017-01-06] MEDS: Ciprofloxacin 200mg/100ml D5W 100 ML IVPB SCH (01:12)
[2017-01-06 06:44] LABS: BASO % 0.4 % (0.0-2.0); EOS # 0.1 K/uL (0.0-0.7); EOS % 1.6 % (0.0-4.0); LYMPH # 1.9 K/uL (1.0-4.3); LYMPH % 26.8 % (20.0-40.0); MEAN CELL VOLUME 80.9 fL (81.0-99.0); MEAN CORPUSCULAR HEMOGLOBIN 25.2 pg (27.0-31.0); MEAN CORPUSCULAR HGB CONC 31.1 g/dL (33.0-37.0); MEAN PLATELET VOLUME 10.5 fL (7.2-11.7); MONO # 0.6 K/uL (0.0-0.8); MONO % 9.2 % (0.0-10.0); NEUT # 4.4 K/uL (1.8-7.0); RBC 3.97 Mil/uL (3.80-5.20); RED CELL DISTRIBUTION WIDTH 17.9 % (11.5-14.5); WHITE BLOOD COUNT 7.1 K/uL (4.8-10.8)
[2017-01-06 07:32] VITALS: BP 129/79
[2017-01-06] MEDS: Pantoprazole 40 mg EC Tab PO SCH (10:52)
[2017-01-06 10:56] LABS: % CD4 (T HELPER CELL) 27 Percent (30-61); % CD8 (SUPPRESSOR T CELL) 46 Percent (12-42); ABSOLUTE CD4 CELLS 656 Cells/mcL (490-1740); ABSOLUTE CD8 CELLS 1117 Cells/mcL (180-1170); ABSOLUTE LYMPHOCYTES 2417 Cells/mcL (850-3900); HELPER/SUPPRESSOR RATIO 0.59 Ratio (0.86-5.00)
--- NOTE | 2017-01-06 11:41 | CP.PCM.PN ---
Subjective - Date & Time of Evaluation Date of Evaluation: 01/06/17 Time of Evaluation: 11:41 - Subjective Subjective: CHIEF COMPLAINTS TODAY : afebrile, c/o FEELING TIRED. PT BEING SENT HOME TO F/U ON MONDAY OPD SURGERY FOR CHANGE OF B/L NT PER PT. ROS. HEENT : N. Resp : No SOB wheezing, cough Cardio : No CP, PND orthopnea GI : +VE ABDOMINAL PAIN,AND FLANK PAIN. +VE NAUSEA. 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 Musculoskel : N Ext. : Pedal pulses intact, no edema or calf pain Derm : N Psych : N. PE. Pt. is alert awake in no distress. V.S As noted in the chart Head ,ear nose,throat and eyes : Normal. Neck : Supple with normal carotids. Lungs: Clear air entry. Heart : S1 & S2 normal . . No murmur. S4 + Abd : Soft ,MILD TENDERNESS BOTH FLANKS AND LOWER ABDOMEN, with normal bowel sounds. B/L NT IN PLACE. URINE IN THE BAG CLOUDY. +VE COLOSTOMY.-STOOLS. Neuro : Moves all ext. with no localized deficit. Ext : No edema with intact pulses. Neg. calf tenderness Derm : No rashes or decubitus ulcer. Radiology/Labs . LABS REVIEWED. URINE CULTURES .NOTED Asssessment : -COMPLICATED UTI -HX OF BILATERAL HYDRONEPHROSIS S/P BILATERAL NT IN PLACE. -CA OF THE CERVIX S/P ILEOSTOMY.. -ACQUIRED IMMUNE DEFICIENCY SYNDROME.. - PRERENAL AZOTEMIA. -HX OF DVT/S/P IVC FILTER/ON . - Plan : PER PMD. PT STATES SHE CANNOT TOLERATE PO ABX . F/U ON MONDAY. DISCONTINUE IV Cipro 200 mg IV piggybag every 12 hourly (01/04/17 ) DC IV TYGACIL 100 MG iv 1 DOSE TODAY. 01/05/17. FOLLOW-UP CULTURES TO ADJUST ANTIBIOTICS. CONTINUE HAART THERAPY. ANALGESICS PER PMD. Objective - Vital Signs/Intake and Output Vital Signs (last 24 hours): Temp Pulse Resp BP Pulse Ox 98.8 F 63 20 129/79 95 01/06/17 07:29 01/06/17 07:29 01/06/17 07:29 01/06/17 07:29 01/06/17 07:29 - Medications Medications: Current Medications Acetaminophen (Tylenol 325mg Tab) 650 mg PO Q6 PRN PRN Reason: Fever >100.4 F Albuterol/Ipratropium (Duoneb 3 Mg/0.5 Mg (3 Ml) Ud) 3 ml INH RQ6 PRN PRN Reason: Wheezing Apixaban (Eliquis) 2.5 mg PO BID [facility] Last Admin: 01/06/17 10:52 Dose: 2.5 mg Darunavir (Prezista) 800 mg PO DAILY [facility] Last Admin: 01/06/17 10:53 Dose: 800 mg Dicyclomine HCl (Bentyl) 20 mg PO TID [facility] Last Admin: 01/06/17 10:52 Dose: 20 mg Diphenhydramine HCl (Benadryl) 25 mg PO Q6 PRN PRN Reason: itchiness Last Admin: 01/05/17 22:18 Dose: 25 mg Dolutegravir Sodium (Tivicay) 50 mg PO DAILY [facility] Last Admin: 01/06/17 10:53 Dose: 50 mg Famciclovir (Famvir) 500 mg PO DAILY [facility] Last Admin: 01/06/17 10:52 Dose: 500 mg Hydromorphone HCl (Dilaudid) 2 mg IVP Q4H PRN PRN Reason: Pain, severe (8-10) Last Admin: 01/05/17 16:33 Dose: 2 mg Ciprofloxacin (Cipro 200mg/100ml D5w) 100 mls @ 67 mls/hr IVPB Q12H [facility] Last Admin: 01/06/17 01:12 Dose: 67 mls/hr Tigecycline 50 mg/ Dextrose 100 mls @ 100 mls/hr IVPB Q12H [facility] Ketoconazole (Nizoral) 0 gm TOP BID [facility] Last Admin: 01/06/17 11:03 Dose: Not Given Loratadine (Claritin) 10 mg PO DAILY [facility] Last Admin: 01/06/17 10:55 Dose: 10 mg Losartan Potassium (Cozaar) 100 mg PO DAILY [facility] Last Admin: 01/06/17 10:54 Dose: 100 mg Metoprolol Tartrate (Lopressor) 100 mg PO HS [facility] Last Admin: 01/05/17 22:12 Dose: 100 mg Montelukast Sodium (Singulair) 10 mg PO HS [facility] Last Admin: 01/05/17 22:12 Dose: 10 mg Oxycodone/Acetaminophen (Percocet 5/325 Mg Tab) 1 tab PO Q4H PRN PRN Reason: Pain, moderate (4-7) Stop: 01/07/17 12:43 Last Admin: 01/05/17 12:32 Dose: 1 tab Pantoprazole Sodium (Protonix Ec Tab) 40 mg PO DAILY [facility] Last Admin: 01/06/17 10:52 Dose: 40 mg Ritonavir (Norvir) 100 mg PO DAILY [facility] Last Admin: 01/06/17 10:52 Dose: 100 mg Temazepam (Restoril) 15 mg PO [facility] Last Admin: 01/05/17 22:08 Dose: Not Given - Labs Labs: PT 14.7 SECONDS (9.7-12.2) H 01/04/17 12:45 INR 1.3 01/04/17 12:45 APTT 30 SECONDS (21-34) 01/04/17 12:45 Assessment and Plan (1) Infection associated with nephrostomy catheter Status: Acute (2) Urinary tract infection Status: Acute (3) Asthma Status: Chronic (4) Cancer of cervix Status: Chronic (5) Colostomy in place Status: Chronic (6) HIV (human immunodeficiency virus infection) Status: Chronic
[2017-01-06 16:34] VITALS: PULSE 71; TEMP 98.4; O2SAT 97
--- NOTE | 2017-01-06 16:55 | CP.PCM.DIS ---
Provider - Provider Date of Admission: 01/06/17 09:47 Attending physician: Lamberto Vega MD Time Spent in preparation of Discharge (in minutes): 20 Diagnosis - Discharge Diagnosis (1) Infection associated with nephrostomy catheter Status: Acute (2) Complicated urinary tract infection Status: Acute (3) Immunocompromised state Status: Chronic (4) HIV disease Status: Chronic Hospital Course - Lab Results Lab Results: Most Recent Lab Values WBC 7.1 K/uL (4.8-10.8) 01/06/17 06:20 RBC 3.97 Mil/uL (3.80-5.20) 01/06/17 06:20 Hgb 10.0 g/dL (11.0-16.0) L 01/06/17 06:20 Hct 32.1 % (34.0-47.0) L 01/06/17 06:20 MCV 80.9 fL (81.0-99.0) L 01/06/17 06:20 MCH 25.2 pg (27.0-31.0) L 01/06/17 06:20 MCHC 31.1 g/dL (33.0-37.0) L 01/06/17 06:20 RDW 17.9 % (11.5-14.5) H 01/06/17 06:20 Plt Count 183 K/uL (130-400) 01/06/17 06:20 MPV 10.5 fL (7.2-11.7) 01/06/17 06:20 Neut % (Auto) 62.0 % (50.0-75.0) 01/06/17 06:20 Lymph % (Auto) 26.8 % (20.0-40.0) 01/06/17 06:20 Placer % (Auto) 9.2 % (0.0-10.0) 01/06/17 06:20 Eos % (Auto) 1.6 % (0.0-4.0) 01/06/17 06:20 Baso % (Auto) 0.4 % (0.0-2.0) 01/06/17 06:20 Neut # 4.4 K/uL (1.8-7.0) 01/06/17 06:20 Lymph # 1.9 K/uL (1.0-4.3) 01/06/17 06:20 Placer # 0.6 K/uL (0.0-0.8) 01/06/17 06:20 Eos # 0.1 K/uL (0.0-0.7) 01/06/17 06:20 Baso # 0.0 K/uL (0.0-0.2) 01/06/17 06:20 PT 14.7 SECONDS (9.7-12.2) H 01/04/17 12:45 INR 1.3 01/04/17 12:45 APTT 30 SECONDS (21-34) 01/04/17 12:45 Sodium 139 mmol/L (132-148) 01/06/17 06:20 Potassium 4.3 mmol/L (3.6-5.2) 01/06/17 06:20 Chloride 106 mmol/L (98-107) 01/06/17 06:20 Carbon Dioxide 23 mmol/L (22-30) 01/06/17 06:20 Anion Gap 15 (10-20) 01/06/17 06:20 BUN 28 mg/dL (7-17) H 01/06/17 06:20 Creatinine 1.5 MG/DL (0.7-1.2) H 01/06/17 06:20 Est GFR ( Amer) 43 01/06/17 06:20 Est GFR (Non-Af Amer) 36 01/06/17 06:20 Random Glucose 93 mg/dL (65-105) 01/06/17 06:20 Calcium 8.0 mg/dl (8.6-10.4) L 01/06/17 06:20 Total Bilirubin 0.6 mg/dL (0.2-1.3) 01/04/17 12:45 AST 16 U/L (14-36) 01/04/17 12:45 ALT 14 U/L (9-52) 01/04/17 12:45 Alkaline Phosphatase 65 U/L (38-126) 01/04/17 12:45 Total Creatine Kinase 21 U/L (30-135) L 01/06/17 06:20 Total Protein 7.2 g/dL (6.3-8.3) 01/04/17 12:45 Albumin 3.6 g/dL (3.5-5.0) 01/04/17 12:45 Globulin 3.6 gm/dL (2.2-3.9) 01/04/17 12:45 Albumin/Globulin Ratio 1.0 (1.0-2.1) 01/04/17 12:45 Lipase 130 U/L (23-300) 01/04/17 12:45 TSH 3rd Generation 2.27 mIU/L (0.46-4.68) 01/06/17 06:20 Urine Color Yellow (YELLOW) 01/04/17 14:20 Urine Clarity Turbid (Clear) 01/04/17 14:20 Urine pH 7.0 (5.0-8.0) 01/04/17 14:20 Ur Specific [place] 1.012 (1.003-1.030) 01/04/17 14:20 Urine Protein 2+ mg/dL (NEGATIVE) H 01/04/17 14:20 Urine Glucose (UA) Normal mg/dL (Normal) 01/04/17 14:20 Urine Ketones Negative mg/dL (NEGATIVE) 01/04/17 14:20 Urine Blood 2+ (NEGATIVE) H 01/04/17 14:20 Urine Nitrate Negative (NEGATIVE) 01/04/17 14:20 Urine Bilirubin Negative (NEGATIVE) 01/04/17 14:20 Urine Urobilinogen Normal mg/dL (0.2-1.0) 01/04/17 14:20 Ur Leukocyte Esterase 3+ Pete/uL (Negative) H 01/04/17 14:20 Urine WBC (Auto) 1091 /hpf (0-5) H 01/04/17 14:20 Urine RBC (Auto) 72 /hpf (0-3) H 01/04/17 14:20 Absolute Lymphs (Flow) 2417 Cells/mcL (850-3900) 01/05/17 06:07 % CD4 Cells 27 Percent (30-61) L 01/05/17 06:07 Absolute CD4 Count 656 Cells/mcL (490-1740) 01/05/17 06:07 T-Help/Suppress Ratio 0.59 Ratio (0.86-5.00) L 01/05/17 06:07 % CD8 Cells 46 Percent (12-42) H 01/05/17 06:07 Absolute CD8 Count 1117 Cells/mcL (180-1170) 01/05/17 06:07 Blood Type B POSITIVE 01/04/17 12:45 Antibody Screen Negative 01/04/17 12:45 - Hospital Course Hospital Course: admitted with nephrostomy tube infected , no sx. for exchange as outpt Discharge Exam - Head Exam Head Exam: ATRAUMATIC - Eye Exam Eye Exam: EOMI - ENT Exam ENT Exam: Mucous Membranes Moist - Neck Exam Neck exam: Full Rom - Respiratory Exam Respiratory Exam: NORMAL BREATHING PATTERN. absent: Rales - GI/Abdominal Exam GI & Abdominal Exam: Normal Bowel Sounds. absent: Organomegaly - Rectal Exam Rectal Exam: Deferred - Extremities Exam Extremities exam: normal capillary refill - Neurological Exam Neurological exam: Alert, Oriented x3 - Psychiatric Exam Psychiatric exam: Normal Mood - Skin Skin Exam: Dry Discharge Plan - Follow Up Plan Condition: STABLE Disposition: HOME/ ROUTINE Instructions: Heart Failure (DC), Nephrostomy Tube Care (DC) Referrals: Lamberto Vega MD [Staff Provider] -
--- NOTE | 2017-01-06 16:56 | CP.PCM.PN ---
Subjective - Date & Time of Evaluation Date of Evaluation: 01/06/17 Time of Evaluation: 16:57 - Subjective Subjective: Alert, orientedx3, afebrile, NAD. Objective - Vital Signs/Intake and Output Vital Signs (last 24 hours): Temp Pulse Resp BP Pulse Ox 98.4 F 71 20 129/79 97 01/06/17 15:00 01/06/17 15:00 01/06/17 15:00 01/06/17 07:29 01/06/17 15:00 Intake and Output: 01/06/17 01/06/17 06:59 18:59 Intake Total 600 Balance 600 - Medications Medications: Current Medications Acetaminophen (Tylenol 325mg Tab) 650 mg PO Q6 PRN PRN Reason: Fever >100.4 F Albuterol/Ipratropium (Duoneb 3 Mg/0.5 Mg (3 Ml) Ud) 3 ml INH RQ6 PRN PRN Reason: Wheezing Apixaban (Eliquis) 2.5 mg PO BID [facility] Last Admin: 01/06/17 10:52 Dose: 2.5 mg Darunavir (Prezista) 800 mg PO DAILY [facility] Last Admin: 01/06/17 10:53 Dose: 800 mg Dicyclomine HCl (Bentyl) 20 mg PO TID [facility] Last Admin: 01/06/17 14:21 Dose: 20 mg Diphenhydramine HCl (Benadryl) 25 mg PO Q6 PRN PRN Reason: itchiness Last Admin: 01/06/17 14:23 Dose: 25 mg Dolutegravir Sodium (Tivicay) 50 mg PO DAILY [facility] Last Admin: 01/06/17 10:53 Dose: 50 mg Famciclovir (Famvir) 500 mg PO DAILY [facility] Last Admin: 01/06/17 10:52 Dose: 500 mg Hydromorphone HCl (Dilaudid) 2 mg IVP Q4H PRN PRN Reason: Pain, severe (8-10) Last Admin: 01/06/17 12:10 Dose: 2 mg Tigecycline 50 mg/ Sodium (Chloride) 100 mls @ 100 mls/hr IVPB Q12 [facility] Last Admin: 01/06/17 12:26 Dose: 100 mls/hr Ketoconazole (Nizoral) 0 gm TOP BID [facility] Last Admin: 01/06/17 11:03 Dose: Not Given Loratadine (Claritin) 10 mg PO DAILY [facility] Last Admin: 01/06/17 10:55 Dose: 10 mg Losartan Potassium (Cozaar) 100 mg PO DAILY [facility] Last Admin: 01/06/17 10:54 Dose: 100 mg Metoprolol Tartrate (Lopressor) 100 mg PO HS [facility] Last Admin: 01/05/17 22:12 Dose: 100 mg Montelukast Sodium (Singulair) 10 mg PO HS [facility] Last Admin: 01/05/17 22:12 Dose: 10 mg Ondansetron HCl (Zofran Inj) 4 mg IVP Q8H PRN PRN Reason: Nausea/Vomiting Oxycodone/Acetaminophen (Percocet 5/325 Mg Tab) 1 tab PO Q4H PRN PRN Reason: Pain, moderate (4-7) Stop: 01/07/17 12:43 Last Admin: 01/05/17 12:32 Dose: 1 tab Pantoprazole Sodium (Protonix Ec Tab) 40 mg PO DAILY [facility] Last Admin: 01/06/17 10:52 Dose: 40 mg Ritonavir (Norvir) 100 mg PO DAILY [facility] Last Admin: 01/06/17 10:52 Dose: 100 mg Temazepam (Restoril) 15 mg PO [facility] Last Admin: 01/05/17 22:08 Dose: Not Given - Labs Labs: PT 14.7 SECONDS (9.7-12.2) H 01/04/17 12:45 INR 1.3 01/04/17 12:45 APTT 30 SECONDS (21-34) 01/04/17 12:45 Assessment and Plan - Assessment and Plan (Free Text) Assessment: Patient is seen and examined. Alert, orientedx3, no acute pain. Procedure was cancelled today since the paient had breakfast. As per DR Vega discharge home today. Advised to come to on Monday at 9am after fasting from midnight for nephrostomy tube change. Will stop antibiotics for now and follow up in the office after procedure. Patient verbalized understanding.
--- NOTE | 2017-01-06 17:01 | PCM.HF ---
Heart Failure Core Measure - Heart Failure Left Ventricular Function to be assessed after discharge: Yes MANOLO Inhibitor Prescribed: No Contraindication/Reason for not providing: on ARB Beta-Inna Prescribed: None Contraindication/Reason for not providing: COPD Angiotensin II Receptor Inna Prescribed: Yes AnticoagulationTherapy for Atrial Fibrillation/Atrialflutter: Yes Aldosterone Antagonist Prescribed: No Contraindication/Reason for not providing: CKD Hydralazine Nitrate Prescribed: No Contraindication/Reason for not providing: BP controlled Implantable Cardioverter Defibrillator Therapy: No Contraindication/Reason for not providing: will be assed in the office Cardiac Resynchronization Therapy Prescribed: No Contraindication/Reason for not providing: not indicated - Follow up Will be discharged to: Home Follow Up Date (must be within 7 days from discharge): 01/09/17 Follow Up Time: 09:00
== END 2017-01-06 22:15 | disposition home or self-care (01) | DRG 569 ==
LOC: C.ER 11:29 → C.9E 12:43 → C.3T 21:32 → OBSVTOIN 01-06 09:47
PROVIDERS: ADMIT Internal Medicine Cardiovascular Disease; ATTEND Internal Medicine Cardiovascular Disease
DX: T83.512A Infection and inflammatory reaction due to nephrostomy catheter, initial encounter (principal); B20 Human immunodeficiency virus [HIV] disease; I13.0 Hypertensive heart and chronic kidney disease with heart failure and stage 1 through stage 4 chronic kidney disease, or unspecified chronic kidney disease; I50.9 Heart failure, unspecified; N39.0 Urinary tract infection, site not specified; N18.9 Chronic kidney disease, unspecified; J44.9 Chronic obstructive pulmonary disease, unspecified; D50.9 Iron deficiency anemia, unspecified; E78.00 Pure hypercholesterolemia, unspecified; E78.5 Hyperlipidemia, unspecified; Y73.8 Miscellaneous gastroenterology and urology devices associated with adverse incidents, not elsewhere classified; M81.0 Age-related osteoporosis without current pathological fracture; N13.9 Obstructive and reflux uropathy, unspecified; Z93.3 Colostomy status; Z92.3 Personal history of irradiation; Z92.21 Personal history of antineoplastic chemotherapy; Z87.442 Personal history of urinary calculi; Z87.891 Personal history of nicotine dependence

== ENCOUNTER 2017-01-09 09:21 | Day surgery (SDC) | payer MEDICAID ==
[2017-01-09 09:21] VITALS: BMI 23.7
--- NOTE | 2017-01-09 10:04 | C.PDOC ---
History Of Present Illness 61 yr old female with PMHx of urinary obstruction and has [address], sent to the ER for nephrostomy tube replacement secondary to malfunction. Patient has been NPO since yesterday. Currently denies fever, chest pain, SOB, nausea, vomiting, abdominal pain, diarrhea, weakness or numbness. Time Seen by Provider: 01/09/17 09:45 Chief Complaint (Nursing): Medical Clearance History Per: Patient History/Exam Limitations: no limitations Onset/Duration Of Symptoms: Days Current Symptoms Are (Timing): Still Present Past Medical History Reviewed: Historical Data, Nursing Documentation, Vital Signs Vital Signs: Last Vital Signs Temp 97.8 F 01/09/17 13:00 Pulse 63 01/09/17 13:00 Resp 18 01/09/17 13:00 BP 128/68 01/09/17 13:00 Pulse Ox 99 01/09/17 13:00 - Medical History PMH: Anemia, Anxiety, Arthritis, Asthma, CHF, COPD, Depression, Gastritis, HIV, HTN, Hypercholesterolemia, Hyperlipidemia, Kidney Stones, Malignancy (Cervical ( 2000)), Osteoporosis, Pancreatitis, Peripheral Edema, Chronic Kidney Disease Surgical History: Cholecystectomy, Endoscopy - [facility] Procedures CHANGE DRAINAGE DEVICE IN KIDNEY, EXTERNAL APPROACH (10/25/16) CYSTOSCOPY NEC (08/07/14) DILATION OF LEFT COMMON ILIAC VEIN, PERCUTANEOUS APPROACH (05/04/16) DILATION OF LEFT FEMORAL VEIN, PERCUTANEOUS APPROACH (05/04/16) FLUOROSCOPY OF BLADDER (09/25/16) INSERTION OF INTRALUM DEV INTO INF VENA CAVA, PERC APPROACH (05/04/16) INSERTION OF TOTALLY IMPLANTABLE VASC ACCESS DEVIC (10/02/03) INSPECTION OF BLADDER, ENDO (09/25/16) INTRAVENOUS PYELOGRAM (09/03/14) INTRODUCE OTH THROMBOLYTIC IN PERIPH VEIN, PERC (05/04/16) NEPHROSTOMY (06/26/14) PACKED CELL TRANSFUSION (11/20/14) PLAIN RADIOGRAPHY OF INFERIOR VENA CAVA USING OTHER CONTRAST (05/04/16) RADIOGRAPHY OF KIDNEY, URETER & BLADDER USING OTH CONTRAST (10/25/16) REMOV URETERAL DRAIN (09/26/14) REPLACE NEPHROSTOMY TUBE (10/31/14) RETROGRADE PYELOGRAM (01/15/15) URETERAL CATHETERIZATION (01/15/15) VAGINOSCOPY (05/30/14) VULVAR BIOPSY (02/07/14) Family History: States: No Known Family Hx - Social History Hx Tobacco Use: No Hx Alcohol Use: No Hx Substance Use: No - Immunization History Hx Tetanus Toxoid Vaccination: Yes (2011) Hx Influenza Vaccination: Yes (04/2016) Hx Pneumococcal Vaccination: Yes (2011) Review Of Systems Except As Marked, All Systems Reviewed And Found Negative. Constitutional: Negative for: Fever Cardiovascular: Negative for: Chest Pain Respiratory: Negative for: Shortness of Breath Gastrointestinal: Negative for: Nausea, Vomiting, Abdominal Pain, Diarrhea Neurological: Negative for: Weakness, Numbness Physical Exam - Physical Exam Appears: Non-toxic, No Acute Distress Skin: Warm, Dry, No Rash Head: Atraumatic, Normacephalic Oral Mucosa: Moist Chest: Symmetrical, No Tenderness Cardiovascular: Rhythm Regular, No Murmur Respiratory: Normal Breath Sounds, No Rales, No Rhonchi, No Wheezing Gastrointestinal/Abdominal: Soft, No Tenderness, No Guarding, No Rebound, Other ((+) [address] on bilateral sides. No erythema. ) Extremity: Normal ROM, No Swelling Neurological/Psych: Oriented x3, Normal Speech, Normal Motor, Normal Sensation ED Course And Treatment O2 Sat by Pulse Oximetry: 96 Medical Decision Making Medical Decision Making: NOTE: * Patient admitted to Dr. Cui for same day surgery. 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 - Scribe Statement The provider has reviewed the documentation as recorded by the Scribe Katelyn Reddy All medical record entries made by the Scribe were at my direction and personally dictated by me. I have reviewed the chart and agree that the record accurately reflects my personal performance of the history, physical exam, medical decision making, and the department course for this patient. I have also personally directed, reviewed, and agree with the discharge instructions and disposition.
[2017-01-09] MEDS ORDERED: ceFAZolin 1 gm FROZEN Premix 1 GM/50 ML ML IVPB ONE (10:45)
[2017-01-09] MEDS ORDERED: Lidocaine 2% Inj (20ml) ONE (10:45)
[2017-01-09] MEDS ORDERED: Midazolam 2 MG/2 ML VIAL ONE (11:08)
[2017-01-09] MEDS ORDERED: Propofol 10 mg/ml Inj (20 ML) ONE (11:08)
[2017-01-09] MEDS ORDERED: Iohexol 350mgl/ml 50 ML ONE (11:17)
--- NOTE | 2017-01-09 11:34 | CP.SDSHP ---
Same Day Surgery H & P - History Proposed Procedure: Bilateral nephrostomy tube change Pre-Op Diagnosis: Ureteral obstruction - Allergies Allergies: Allergies sulfamethoxazole [From Bactrim] Allergy (Intermediate, Verified 01/04/17 11:36) ITCHING aloe vera Allergy (Verified 01/04/17 11:36) ITCHING Sulfa (Sulfonamide Antibiotics) Allergy (Verified 01/04/17 11:36) ITCHING - Physical Exam Vital Signs: Vital Signs 01/09/17 01/09/17 09:28 10:17 Temperature 98.7 F Pulse Rate 95 H Respiratory 18 Rate Blood Pressure 132/88 O2 Sat by Pulse 96 96 Oximetry Mental Status: Alert & Oriented x3 Neuro: WNL Heart: WNL Lungs: WNL - Impression Impression: Pt with bilateral nephrostomy tube placed for ureteral obstruction. Pt with UTI. PLan Bilateral nephrostomy tube change Pt. Evaluated Today:Candidate for Anesthesia & Procedure: Yes (ASA 3 Malampati 3) Short Stay Discharge - Short Stay Discharge Admitting Diagnosis/Reason for Visit: NEPHROSTOMY MALFUNCTION Disposition: HOME/ ROUTINE
--- NOTE | 2017-01-09 11:36 | PCM.SURG1 ---
Surgeon's Initial Post Op Note - Surgeon's Notes Surgeon: Benjie Cui MD Mobile Lab Technician: NONE Type of Anesthesia: IV Sedation Pre-Operative Diagnosis: Ureteral obstruction Operative Findings: Moderate right hydronephrosis. Mild right hydronephrosis. Post-Operative Diagnosis: Ureteral obstruction Operation Performed: Bilateral nephrostomy tube change. New 8.5 PCN placed. Specimen/Specimens Removed: none Estimated Blood Loss: EBL {In ML}: 0 Blood Products Given: N/A Drains Used: No Drains Post-Op Condition: Fair Date of Surgery/Procedure: 01/09/17 Time of Surgery/Procedure: 11:30
--- NOTE | 2017-01-09 12:01 | SPECPROC ---
Date of Procedure:01/09/2017 Procedure: 1. Right and left nephrostogram, CPT 57416. 2. Exchange of right percutaneous nephrostomy tubes, CPT 64368 3. Exchange of left percutaneous nephrostomy tubes, CPT 36735-49 Medications: The patient was sedated by anesthesiologist along with physiologic monitoring, 10 cc of 2% percent lidocaine. HISTORY: Bilateral ureteral obstruction, bilateral percutaneous nephrostomy tube. TECHNIQUE: Following informed consent the procedure time-out, patient was placed prone on the interventional table. The patient's right and left percutaneous nephrostomy tubes and surrounding skin were prepped and draped in the usual sterile fashion. Spot radiographs show the presence of right and left percutaneous nephrostomy tube. Dilute contrast injected into the left percutaneous nephrostomy tube showed moderate right and left hydronephrosis. The nephrostomy tube was exchanged over a guidewire. Antegrade nephrostogram showed long segment stricture of the left ureter and occluded right ureter distally. A new 8.5 [place] nephrostomy tube was advanced over the wire and formed within the left renal pelvis. The tube was secured to patient's skin with 2-0 Prolene and a dressing applied. Dilute contrast injected to the right percutaneous nephrostomy tube showed moderate hydronephrosis. Again the nephrostomy tube was exchanged over wire for a new 8.5 [place] nephrostomy tube formed within the renal pelvis. The tube was secured to patient's skin with 2 0 Prolene sutures. IMPRESSION: Right and left antegrade nephrostogram showed moderate hydronephrosis on the left and moderate hydronephrosis on the right. Placement of new 8.5 [place] right and left percutaneous nephrostomy tubes.
[2017-01-09 13:04] VITALS: BP 128/68; PULSE 63; RESP 18; TEMP 97.8
[2017-01-10 17:00] VITALS: O2SAT 96
== END 2017-01-09 15:09 | disposition home or self-care (01) ==
LOC: C.SDS 09:21 → C.ER 09:21 → C.SDS 10:11
PROVIDERS: ATTEND Radiology Vascular & Interventional Radiology
DX: N99.522 Malfunction of incontinent external stoma of urinary tract (principal); Z85.41 Personal history of malignant neoplasm of cervix uteri; N13.39 Other hydronephrosis
CPT/HCPCS: 50435; 74425; 75984; 82948; 99285; C1769; J0690; J1644; J2250; J2704; J3010; Q9967

== ENCOUNTER 2017-02-11 21:31 | Emergency (ER) | payer MEDICAID ==
[2017-02-11 21:32] VITALS: BMI 23.7
[2017-02-11] MEDS ORDERED: Sodium Chloride 0.9% 1,000 ML IV ONE (22:26)
[2017-02-11 23:04] LABS: BASO % 0.4 % (0.0-2.0); EOS % 0.2 % (0.0-4.0); HEMOGLOBIN 10.2 g/dL (11.0-16.0); LYMPH # 1.9 K/uL (1.0-4.3); LYMPH % 16.5 % (20.0-40.0); MEAN CORPUSCULAR HEMOGLOBIN 25.4 pg (27.0-31.0); MEAN CORPUSCULAR HGB CONC 31.8 g/dL (33.0-37.0); MEAN PLATELET VOLUME 10.4 fL (7.2-11.7); MONO # 1.3 K/uL (0.0-0.8); MONO % 11.2 % (0.0-10.0); NEUT # 8.4 K/uL (1.8-7.0); NEUT % 71.7 % (50.0-75.0); RED CELL DISTRIBUTION WIDTH 17.6 % (11.5-14.5); WHITE BLOOD COUNT 11.8 K/uL (4.8-10.8)
[2017-02-11 23:18] LABS: ALBUMIN 3.7 g/dL (3.5-5.0)
[2017-02-11 23:21] LABS: CALCIUM 8.5 mg/dl (8.6-10.4); INR 1.2; PROTHROMBIN TIME 13.5 SECONDS (9.7-12.2)
[2017-02-11 23:47] LABS: SQUAMOUS EPITHIAL 8 /hpf (0-5); URINE BILIRUBIN NEGATIVE (NEGATIVE); URINE BLOOD 3+ (NEGATIVE); URINE CLARITY Turbid (Clear); URINE COLOR Yellow (YELLOW); URINE GLUCOSE (UA) NORMAL (Normal); URINE LEUKOCYTE ESTERASE 2+ Leu/uL (Negative); URINE NITRATE NEGATIVE (NEGATIVE); URINE PROTEIN 2+ mg/dL (NEGATIVE); URINE UROBILINOGEN NORMAL mg/dL (0.2-1.0); WBC CLUMPS MANY /hpf
[2017-02-11 23:49] LABS: URINE BACTERIA FEW (<OCC)
[2017-02-11 23:56] VITALS: BP 98/67; PULSE 70; RESP 18; TEMP 98.9; O2SAT 97
--- NOTE | 2017-02-12 00:09 | C.PDOC ---
History Of Present Illness 61 year old female presents to the ED with complaints of intermittent fever since this morning and evaluation of wound. Patient notes fever was 100.2 and denies nausea, vomiting, or other complaints at this time. Chief Complaint (Nursing): Fever History Per: Patient History/Exam Limitations: no limitations Onset/Duration Of Symptoms: Hrs Current Symptoms Are (Timing): Still Present Location Of Pain: None Sick Contacts (Context): None Associated Symptoms: Fever. denies: Chills, Nausea, Vomiting, Diarrhea Recent travel outside of the [place]: No Past Medical History Reviewed: Historical Data, Nursing Documentation, Vital Signs Vital Signs: Last Vital Signs Temp 98.9 F 02/11/17 23:55 Pulse 70 02/11/17 23:55 Resp 18 02/11/17 23:55 BP 98/67 L 02/11/17 23:55 Pulse Ox 97 02/12/17 00:19 - Medical History PMH: Anemia, Anxiety, Arthritis, Asthma, CHF, COPD, Depression, Gastritis, HIV, HTN, Hypercholesterolemia, Hyperlipidemia, Kidney Stones, Malignancy (Cervical ( 2000)), Osteoporosis, Pancreatitis, Peripheral Edema, Chronic Kidney Disease Surgical History: Cholecystectomy, Endoscopy - [facility] Procedures CHANGE DRAINAGE DEVICE IN KIDNEY, EXTERNAL APPROACH (10/25/16) CYSTOSCOPY NEC (08/07/14) DILATION OF LEFT COMMON ILIAC VEIN, PERCUTANEOUS APPROACH (05/04/16) DILATION OF LEFT FEMORAL VEIN, PERCUTANEOUS APPROACH (05/04/16) FLUOROSCOPY OF BLADDER (09/25/16) INSERTION OF INTRALUM DEV INTO INF VENA CAVA, PERC APPROACH (05/04/16) INSERTION OF TOTALLY IMPLANTABLE VASC ACCESS DEVIC (10/02/03) INSPECTION OF BLADDER, ENDO (09/25/16) INTRAVENOUS PYELOGRAM (09/03/14) INTRODUCE OTH THROMBOLYTIC IN PERIPH VEIN, PERC (05/04/16) NEPHROSTOMY (06/26/14) PACKED CELL TRANSFUSION (11/20/14) PLAIN RADIOGRAPHY OF INFERIOR VENA CAVA USING OTHER CONTRAST (05/04/16) RADIOGRAPHY OF KIDNEY, URETER & BLADDER USING OTH CONTRAST (10/25/16) REMOV URETERAL DRAIN (09/26/14) REPLACE NEPHROSTOMY TUBE (10/31/14) RETROGRADE PYELOGRAM (01/15/15) URETERAL CATHETERIZATION (01/15/15) VAGINOSCOPY (05/30/14) VULVAR BIOPSY (02/07/14) Family History: States: Unknown Family Hx - Social History Hx Tobacco Use: No Hx Alcohol Use: No Hx Substance Use: No - Immunization History Hx Tetanus Toxoid Vaccination: Yes (2011) Hx Influenza Vaccination: Yes (04/2016) Hx Pneumococcal Vaccination: Yes (2011) Review Of Systems Constitutional: Positive for: Fever. Negative for: Chills Cardiovascular: Negative for: Chest Pain Respiratory: Negative for: Shortness of Breath Gastrointestinal: Negative for: Nausea, Vomiting, Diarrhea Genitourinary: Positive for: Other (urethrostomy bilateral flank area ) Physical Exam - Physical Exam Appears: Non-toxic, No Acute Distress Skin: Warm, Dry Head: Atraumatic Eye(s): bilateral: Normal Inspection, PERRL, EOMI Oral Mucosa: Moist Neck: Supple Chest: Symmetrical, No Deformity Cardiovascular: Rhythm Regular Respiratory: Normal Breath Sounds, No Rhonchi, No Wheezing Gastrointestinal/Abdominal: Soft, No Tenderness, No Distention, No Guarding, No Rebound, Other (urethrostomy bilateral flank area draining clear urine. Culture of wound was previously performed. No erythema, swelling, or tendneress surrounding the area. ) Extremity: Normal ROM, No Tenderness Neurological/Psych: Oriented x3, Normal Speech, Normal Cognition, Normal Cranial Nerves, Normal Motor, Normal Sensation ED Course And Treatment - Laboratory Results Result Diagrams: 02/11/17 23:01 02/11/17 23:01 O2 Sat by Pulse Oximetry: 97 Progress Note: Patient refused to take oral antibiotic, states she can only take IV antibiotic. Disposition Counseled Patient/Family Regarding: Diagnosis - Disposition Referrals: [facility] [Outside] Disposition: HOME/ ROUTINE Disposition Time: 00:09 Condition: STABLE Prescriptions: Doxycycline Hyclate 100 mg PO BID #7 capsule Instructions: MRSA (Methicillin Resistant Staphylococcus Aureus) (DC) Forms: [facility] (Andorran) - POA Present On Arrival: None - Clinical Impression Clinical Impression: Wound infection - Scribe Statement The provider has reviewed the documentation as recorded by the Scribe Mayra Dash All medical record entries made by the Scribe were at my direction and personally dictated by me. I have reviewed the chart and agree that the record accurately reflects my personal performance of the history, physical exam, medical decision making, and the department course for this patient. I have also personally directed, reviewed, and agree with the discharge instructions and disposition.
--- NOTE | 2017-02-12 08:22 | RAD ---
HISTORY: fever COMPARISON: 01/04/2017 TECHNIQUE: Chest PA and lateral FINDINGS: LUNGS: Diffuse increased interstitial lung markings. Biapical pleural thickening. Lines and tubes in stable position. Vertically oriented opacities projecting over the right midlung zone may represent confluence of shadows with scapula and vessels. PLEURA: No significant pleural effusion identified. No pneumothorax apparent. CARDIOVASCULAR: Normal. OSSEOUS STRUCTURES: No significant abnormalities. VISUALIZED UPPER ABDOMEN: Normal. OTHER FINDINGS: None. IMPRESSION: No significant interval change.
== END 2017-02-12 00:25 | disposition home or self-care (01) ==
LOC: C.ER 21:31
DX: L08.9 Local infection of the skin and subcutaneous tissue, unspecified (principal)
CPT/HCPCS: 71020; 80053; 81001; 83690; 85025; 85610; 85730; 87040; 87086; 87804; 96360; 96361; 99284; J7040

== ENCOUNTER 2017-02-13 20:03 | Inpatient (IN) | payer MEDICAID ==
[2017-02-13 20:03] VITALS: BMI 23.7
--- NOTE | 2017-02-13 20:38 | C.PDOC ---
History Of Present Illness Patient presents to the ER with a complaint of a fever. Patient was seen 2 days ago and started on PO antibiotics; however, she states she has not been able to tolerate PO. Patient has bilateral nephrostomy tubes in place; denies abdominal pain or hematuria. Time Seen by Provider: 02/13/17 20:37 Chief Complaint (Nursing): Fever History Per: Patient History/Exam Limitations: no limitations Onset/Duration Of Symptoms: Days Current Symptoms Are (Timing): Still Present Location Of Pain: None Sick Contacts (Context): None Associated Symptoms: Fever, Vomiting. denies: Other (Hematuria) Ear Symptoms: Bilateral: None Severity: Moderate Pain Scale Rating Of: 4 Recent travel outside of the [place]: No Past Medical History Reviewed: Historical Data, Nursing Documentation, Vital Signs Vital Signs: Last Vital Signs Temp 102.1 F H 02/13/17 20:23 Pulse 125 H 02/13/17 20:23 Resp 18 02/13/17 20:23 BP 110/68 02/13/17 20:23 Pulse Ox 98 02/13/17 21:06 - Medical History PMH: Anemia, Anxiety, Arthritis, Asthma, CHF, COPD, Depression, Gastritis, HIV, HTN, Hypercholesterolemia, Hyperlipidemia, Kidney Stones, Malignancy (Cervical ( 2000)), Osteoporosis, Pancreatitis, Peripheral Edema, Chronic Kidney Disease Surgical History: Cholecystectomy, Endoscopy - [facility] Procedures CHANGE DRAINAGE DEVICE IN KIDNEY, EXTERNAL APPROACH (10/25/16) CYSTOSCOPY NEC (08/07/14) DILATION OF LEFT COMMON ILIAC VEIN, PERCUTANEOUS APPROACH (05/04/16) DILATION OF LEFT FEMORAL VEIN, PERCUTANEOUS APPROACH (05/04/16) FLUOROSCOPY OF BLADDER (09/25/16) INSERTION OF INTRALUM DEV INTO INF VENA CAVA, PERC APPROACH (05/04/16) INSERTION OF TOTALLY IMPLANTABLE VASC ACCESS DEVIC (10/02/03) INSPECTION OF BLADDER, ENDO (09/25/16) INTRAVENOUS PYELOGRAM (09/03/14) INTRODUCE OTH THROMBOLYTIC IN PERIPH VEIN, PERC (05/04/16) NEPHROSTOMY (06/26/14) PACKED CELL TRANSFUSION (11/20/14) PLAIN RADIOGRAPHY OF INFERIOR VENA CAVA USING OTHER CONTRAST (05/04/16) RADIOGRAPHY OF KIDNEY, URETER & BLADDER USING OTH CONTRAST (10/25/16) REMOV URETERAL DRAIN (09/26/14) REPLACE NEPHROSTOMY TUBE (10/31/14) RETROGRADE PYELOGRAM (01/15/15) URETERAL CATHETERIZATION (01/15/15) VAGINOSCOPY (05/30/14) VULVAR BIOPSY (02/07/14) Family History: States: No Known Family Hx - Social History Hx Tobacco Use: No Hx Alcohol Use: No Hx Substance Use: No - Immunization History Hx Tetanus Toxoid Vaccination: Yes (2011) Hx Influenza Vaccination: Yes (04/2016) Hx Pneumococcal Vaccination: Yes (2011) Review Of Systems Constitutional: Positive for: Fever. Negative for: Chills Eyes: Negative for: Redness ENT: Negative for: Throat Pain Cardiovascular: Negative for: Chest Pain, Palpitations Respiratory: Negative for: Shortness of Breath, Wheezing Gastrointestinal: Positive for: Vomiting. Negative for: Abdominal Pain Genitourinary: Negative for: Hematuria Musculoskeletal: Negative for: Back Pain Skin: Negative for: Rash Neurological: Negative for: Weakness, Numbness Psych: Negative for: Anxiety Physical Exam - Physical Exam Appears: Non-toxic, Other (Awake, Alert) Skin: Warm, Dry Head: Normacephalic Eye(s): bilateral: Normal Inspection Oral Mucosa: Dry Neck: No Decreased ROM, Supple Chest: Symmetrical, No Tenderness Cardiovascular: Rhythm Regular, No Murmur Respiratory: No Rales, No Rhonchi, No Wheezing Gastrointestinal/Abdominal: Soft, No Tenderness Back: No CVA Tenderness, Other (Bilateral nephrostomy tubes in place) Extremity: No Tenderness Extremity: Bilateral: Atraumatic, Normal Color And Temperature, Normal ROM Pulses: Left Dorsalis Pedis: Normal, Right Dorsalis Pedis: Normal Neurological/Psych: Oriented x3, Normal Speech, Normal Cognition Gait: Steady ED Course And Treatment - Laboratory Results Result Diagrams: 02/13/17 21:59 02/13/17 21:59 O2 Sat by Pulse Oximetry: 98 (Room air) Pulse Ox Interpretation: Normal Progress Note: Blood work and urinalysis ordered. Zofran, piperacillin, and IV fluids administered. Disposition Discussed With : Lamberto Vega Comment: accepted the pt on his service and took over the care at 11:06PM Doctor Will See Patient In The: Hospital Counseled Patient/Family Regarding: Studies Performed, Diagnosis - Disposition Disposition: HOSPITALIZED Disposition Time: 20:38 Condition: FAIR - POA Present On Arrival: Poor Glycemic Control - Clinical Impression Clinical Impression: Fever, Sepsis, Infection associated with nephrostomy catheter - Scribe Statement The provider has reviewed the documentation as recorded by the Scribmaggie Hung All medical record entries made by the Scribe were at my direction and personally dictated by me. I have reviewed the chart and agree that the record accurately reflects my personal performance of the history, physical exam, medical decision making, and the department course for this patient. I have also personally directed, reviewed, and agree with the discharge instructions and disposition. Decision To Admit - Pt Status Changed To: Hospital Disposition Of: Inpatient - Admit Certification Admit to Inpatient:: After my assessment, the patient will require hospitalization for at least two midnights. This is because of the severity of symptoms shown, intensity of services needed, and/or the medical risk in this patient being treated as an outpatient. - InPatient: Physician Admission Certification:: After my assessment, the patient will require hospitalization for at least two midnights. This is because of the severity of symptoms shown, intensity of services needed, and/or the medical risk in this patient being treated as an outpatient. - . Bed Request Type: Regular Admitting Physician: Lamberto Vega Patient Diagnosis: Fever, Sepsis, Infection associated with nephrostomy catheter
[2017-02-13] MEDS ORDERED: Sodium Chloride 0.9% 1,000 ML IV ONE (20:54)
[2017-02-13] MEDS ORDERED: Piperacillin/Tazobact 3.375 gm 100 ML IVPB STA (21:01)
[2017-02-13 21:14] LABS: VENOUS BLOOD GAS BASE EXCESS -4.8 mmol/L (0.0-2.0); VENOUS BLOOD GAS PCO2 34 mmHg (40-60); VENOUS BLOOD PH 7.37 (7.32-7.43)
[2017-02-13] MEDS ORDERED: Oxycodone/Acetaminophen 5/325 mg Tab PO PRN (21:55)
[2017-02-13] MEDS ORDERED: Albuterol HFA 90 mcg/actuation (8 g) INH PRN (22:03)
[2017-02-13 22:05] LABS: BASO % 0.1 % (0.0-2.0); EOS % 0.1 % (0.0-4.0); HEMATOCRIT 29.6 % (34.0-47.0); LYMPH # 1.8 K/uL (1.0-4.3); LYMPH % 14.4 % (20.0-40.0); MEAN CELL VOLUME 78.9 fL (81.0-99.0); MEAN CORPUSCULAR HEMOGLOBIN 25.5 pg (27.0-31.0); MEAN CORPUSCULAR HGB CONC 32.3 g/dL (33.0-37.0); MEAN PLATELET VOLUME 10.6 fL (7.2-11.7); MONO # 1.6 K/uL (0.0-0.8); MONO % 12.9 % (0.0-10.0); RED CELL DISTRIBUTION WIDTH 17.2 % (11.5-14.5); WHITE BLOOD COUNT 12.5 K/uL (4.8-10.8)
[2017-02-13 22:09] LABS: RBC URINE 15 /hpf (0-3); URINE BACTERIA MANY (<OCC); URINE BILIRUBIN NEGATIVE (NEGATIVE); URINE BLOOD 1+ (NEGATIVE); URINE COLOR Amber (YELLOW); URINE GLUCOSE (UA) NORMAL (Normal); URINE KETONE NEGATIVE (NEGATIVE); URINE LEUKOCYTE ESTERASE 3+ Leu/uL (Negative); URINE PROTEIN 2+ mg/dL (NEGATIVE); URINE UROBILINOGEN NORMAL mg/dL (0.2-1.0); WBC URINE 452 /hpf (0-5)
--- NOTE | 2017-02-13 22:16 | CP.PCM.HP ---
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 Patient states she has chronic microcytic anemia and Gastritis managed by her Project Inspector, Dr. Wong for which she takes omeprazole. She received Intravenous Iron and blood transfusions, last given 2013. she is now with recurent urine infection, had antibiotics as out pt, also an admission for DVT, thrombectomy from femoral vein, then eliquis. referred by "Dr Knutson"for admission , IV antibiotics and exchange nephrostomy tubes Present on Admission - Present on Admission Any Indicators Present on Admission: No Review of Systems - Review of Systems Systems not reviewed;Unavailable: Unstable Vital Signs - Constitutional Constitutional: Anorexia, Weakness - EENT Eyes: absent: Discharge Ears: absent: Ear Discharge, Dizziness Nose/Mouth/Throat: absent: Epistaxis - Cardiovascular Cardiovascular: absent: Acrocyanosis, Chest Pain, Diaphoresis, Palpitations, Syncope - Respiratory Respiratory: absent: Cough, Dyspnea, Hemoptysis - Gastrointestinal Gastrointestinal: absent: Abdominal Pain, Diarrhea, Hematochezia, Vomiting - Genitourinary Genitourinary: Change in Urinary Stream Past Patient History - Infectious Disease Hx of Infectious Diseases: None - Past Medical History & Family History Past Medical History?: Yes - Past Social History Smoking Status: Never Smoked - CARDIAC Hx Congestive Heart Failure: Yes Hx Hypercholesterolemia: Yes Hx Hypertension: Yes Hx Peripheral Edema: Yes - PULMONARY Hx Asthma: Yes Hx Chronic Obstructive Pulmonary Disease (COPD): Yes - NEUROLOGICAL Hx Neurological Disorder: Yes Hx Syncope: Yes Other/Comment: HEADACHES - HEENT Hx HEENT Problems: Yes Hx Cataracts: Yes (BILATERAL) - RENAL Hx Chronic Kidney Disease: Yes Hx Kidney Stones: Yes - HEMATOLOGICAL/ONCOLOGICAL Hx Anemia: Yes Hx Human Immunodeficiency Virus (HIV): Yes - MUSCULOSKELETAL/RHEUMATOLOGICAL Hx Arthritis: Yes Hx Osteoporosis: Yes - GASTROINTESTINAL Hx Gastritis: Yes Hx Pancreatitis: Yes - GENITOURINARY/GYNECOLOGICAL Hx Reproductive Disorders: Yes (S/P HYSTERECTOMY) Other/Comment: NEPHROSTOMY TUBES - PSYCHIATRIC Hx Anxiety: Yes Hx Depression: Yes Hx Substance Use: No - SURGICAL HISTORY Hx Cholecystectomy: Yes - ANESTHESIA Hx Malignant Hyperthermia: No Meds Allergies/Adverse Reactions: Allergies Allergy/AdvReac Type Severity Reaction Status Date / Time sulfamethoxazole Allergy Intermediate ITCHING Verified 01/04/17 11:36 [From Bactrim] aloe vera Allergy ITCHING Verified 01/04/17 11:36 Sulfa (Sulfonamide Allergy ITCHING Verified 01/04/17 11:36 Antibiotics) Physical Exam - Constitutional Appears: Non-toxic - Head Exam Head Exam: ATRAUMATIC - Eye Exam Eye Exam: EOMI - ENT Exam ENT Exam: Mucous Membranes Moist - Neck Exam Neck exam: Negative for: Lymphadenopathy, Thyromegaly - Respiratory Exam Respiratory Exam: Clear to Auscultation Bilateral. absent: Rales - Cardiovascular Exam Cardiovascular Exam: REGULAR RHYTHM. absent: Systolic Murmur - GI/Abdominal Exam GI & Abdominal Exam: Normal Bowel Sounds. absent: Organomegaly - Rectal Exam Rectal Exam: Deferred - Extremities Exam Extremities exam: Positive for: normal capillary refill. Negative for: calf tenderness - Neurological Exam Neurological exam: Alert, Oriented x3 - Psychiatric Exam Psychiatric exam: Anxious - Skin Skin Exam: Dry Results - Vital Signs Recent Vital Signs: Last Vital Signs Temp 102.1 F H 02/13/17 20:23 Pulse 125 H 02/13/17 20:23 Resp 18 02/13/17 20:23 BP 110/68 02/13/17 20:23 Pulse Ox 98 02/13/17 21:06 - Labs Result Diagrams: 02/13/17 21:59 02/13/17 21:59 Labs: Laboratory Results - last 24 hr 02/13/17 02/13/17 02/13/17 21:10 21:59 22:00 WBC 12.5 H RBC 3.75 L Hgb 9.6 L Hct 29.6 L MCV 78.9 L MCH 25.5 L MCHC 32.3 L RDW 17.2 H Plt Count 134 MPV 10.6 Neut % (Auto) 72.5 Lymph % (Auto) 14.4 L [place] % (Auto) 12.9 H Eos % (Auto) 0.1 Baso % (Auto) 0.1 Neut # 9.1 H Lymph # 1.8 [place] # 1.6 H Eos # 0.0 Baso # 0.0 pO2 27 L VBG pH 7.37 VBG pCO2 34 L VBG HCO3 19.8 VBG Total CO2 20.7 L VBG O2 Sat (Calc) 59.3 VBG Base Excess -4.8 L VBG Potassium 3.3 L Sodium 137.0 Chloride 112.0 H Glucose 120 H Lactate 0.6 L FiO2 21.0 Venous Blood Potassium 3.3 L Urine Color [place] Urine Clarity Hazy Urine pH 6.0 Ur Specific [place] 1.015 Urine Protein 2+ H Urine Glucose (UA) Normal Urine Ketones Negative Urine Blood 1+ H Urine Nitrate Negative Urine Bilirubin Negative Urine Urobilinogen Normal Ur Leukocyte Esterase 3+ H Urine WBC (Auto) 452 H Urine RBC (Auto) 15 H Ur Squamous Epith Cells 1 Urine Bacteria Many H Assessment & Plan (1) Infection associated with nephrostomy catheter Status: Acute (2) Intractable pain Status: Acute (3) Malfunction of nephrostomy tube Status: Acute (4) Other mechanical complication of nephrostomy catheter, sequela Status: Acute (5) AIDS Status: Chronic (6) Cancer of cervix Status: Chronic Decision To Admit - Pt Status Changed To: Hospital Disposition Of: Inpatient - Admit Certification Admit to Inpatient:: After my assessment, the patient will require hospitalization for at least two midnights. This is because of the severity of symptoms shown, intensity of services needed, and/or the medical risk in this patient being treated as an outpatient. - InPatient: Physician Admission Certification:: yes - . Bed Request Type: Regular
[2017-02-13 22:21] LABS: INR 1.5; POTASSIUM 3.6 mmol/L (3.6-5.2)
[2017-02-13 22:24] LABS: ALB/GLOB RATIO 0.9 (1.0-2.1); BILIRUBIN,TOTAL 1.1 mg/dL (0.2-1.3); CALCIUM 8.3 mg/dl (8.6-10.4); TOTAL PROTEIN 7.1 g/dL (6.3-8.3)
--- NOTE | 2017-02-13 23:03 | CP.PCM.CON ---
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 Patient has had multiple hospitalizations at [facility] for complicated UTIs and for change of bilateral nephrostomy tubes every 3 months. Patient recently had bilateral nephrostomy tube changes on 01/09/[address] Cui for moderate right hydronephrosis and ureteral obstruction. Patient admitted on 02/13/17 for possible sepsis and elevated fevers of up to 102.8 as reported by the patient for past 3 days prior to admission. Patient came to the hospital on 02/11/17 but sent home on by mouth antibiotics which patient was unable to tolerate. Also because of recurrent FEVERS and urine looking very cloudy and orange in color she came to the ER again. Patient was found to have leukocytosis of 12.5 and also urinalysis was hazy with 3+ urinary leukocytes and 452 WBCs. Many bacteria were seen. Infectious disease consultation requested by PMD Dr. Vega for further evaluation for sepsis and fevers. Patient was started on doxycycline by mouth 100 mg twice a day and Zosyn 3.375 one dose in the ER. patient also has history off DVT, thrombectomy from femoral vein and presently on ELIQUIS. Patient is presently on TIVICAY. Norvir, Prezista HAART therapy and is very compliant with her medications. Her last viral load ON 01/05/17 was undetectable and her CD4 count WAS 656 PMHx: see HPI. Nephrostomy and colostomy were done due to damages from chemoradiation for cervical CA. Pt visited PMD for routine HIV follow up on 2015 and was told viral count undetectable. CD4 145 on 08/19/14 per record. PSHx: Cervical CA resection 2000, colostomy bag 2009. FMHx: both parents from [place]. Sister and brother had MD. Social: former smoker, 5 cigarettes to 1 pack a day for 10 years, stopped 2011. Denied ETOH or drugs use. Lives alone, unemployeed. PMD: Dr. Rojas N[place] Review of Systems - Constitutional Constitutional: Chills, Fever, Malaise, Weakness - EENT Eyes: absent: Change in Vision Nose/Mouth/Throat: absent: Mouth Lesions - Cardiovascular Cardiovascular: absent: Chest Pain, Dyspnea, Edema - Respiratory Respiratory: absent: Cough, Hemoptysis - Gastrointestinal Gastrointestinal: Abdominal Pain. absent: Nausea, Vomiting - Genitourinary Genitourinary: Flank Pain, Pyuria, Freq UTI, Hx /Renal Surgery (bilateral nephrostomy tubes right and left.) - Integumentary Integumentary: absent: Rash - Neurological Neurological: Headaches (HISTORY OF MIGRAINE HEADACHES.) - Hematologic/Lymphatic Hematologic: As Per HPI Past Patient History - Infectious Disease Hx of Infectious Diseases: None - Past Medical History & Family History Past Medical History?: Yes - Past Social History Smoking Status: Never Smoked - CARDIAC Hx Congestive Heart Failure: Yes Hx Hypercholesterolemia: Yes Hx Hypertension: Yes Hx Peripheral Edema: Yes - PULMONARY Hx Asthma: Yes Hx Chronic Obstructive Pulmonary Disease (COPD): Yes - NEUROLOGICAL Hx Neurological Disorder: Yes Hx Syncope: Yes Other/Comment: HEADACHES - HEENT Hx HEENT Problems: Yes Hx Cataracts: Yes (BILATERAL) - RENAL Hx Chronic Kidney Disease: Yes Hx Kidney Stones: Yes - HEMATOLOGICAL/ONCOLOGICAL Hx Anemia: Yes Hx Human Immunodeficiency Virus (HIV): Yes - MUSCULOSKELETAL/RHEUMATOLOGICAL Hx Arthritis: Yes Hx Osteoporosis: Yes - GASTROINTESTINAL Hx Gastritis: Yes Hx Pancreatitis: Yes - GENITOURINARY/GYNECOLOGICAL Hx Reproductive Disorders: Yes (S/P HYSTERECTOMY) Other/Comment: NEPHROSTOMY TUBES - PSYCHIATRIC Hx Anxiety: Yes Hx Depression: Yes Hx Substance Use: No - SURGICAL HISTORY Hx Cholecystectomy: Yes - ANESTHESIA Hx Malignant Hyperthermia: No Meds Allergies/Adverse Reactions: Allergies Allergy/AdvReac Type Severity Reaction Status Date / Time sulfamethoxazole Allergy Intermediate ITCHING Verified 01/04/17 11:36 [From Bactrim] aloe vera Allergy ITCHING Verified 01/04/17 11:36 Sulfa (Sulfonamide Allergy ITCHING Verified 01/04/17 11:36 Antibiotics) - Medications Medications: Current Medications Acetaminophen (Tylenol 325mg Tab) 650 mg PO Q6 PRN PRN Reason: Fever >100.4 F Albuterol (Ventolin Hfa 90 Mcg/Actuation (8 G)) 2 puff INH RQ4 PRN PRN Reason: Shortness of Breath Apixaban (Eliquis) 5 mg PO BID [facility] Darunavir (Prezista) 800 mg PO DAILY [facility] Dicyclomine HCl (Bentyl) 20 mg PO TID [facility] Docusate Sodium (Colace) 100 mg PO BID [facility] Dolutegravir Sodium (Tivicay) 50 mg PO DAILY [facility] Doxycycline Hyclate (Doryx) 100 mg PO BID [facility] Enoxaparin Sodium (Lovenox) 40 mg SC DAILY [facility] Famciclovir (Famvir) 500 mg PO DAILY [facility] Hydromorphone HCl (Dilaudid) 2 mg IVP Q6H PRN PRN Reason: Pain, severe (8-10) Sodium Chloride (Sodium Chloride 0.9%) 1,000 mls @ 60 mls/hr IV .[id number] [facility] Ketoconazole (Nizoral) 0 gm TOP BID [facility] Losartan Potassium (Cozaar) 100 mg PO DAILY [facility] Metoprolol Tartrate (Lopressor) 100 mg PO HS [facility] Montelukast Sodium (Singulair) 10 mg PO DAILY [facility] Ondansetron HCl (Zofran Inj) 4 mg IVP Q6 PRN PRN Reason: Nausea/Vomiting Oxybutynin Chloride (Ditropan Xl) 5 mg PO DAILY [facility] Oxycodone/Acetaminophen (Percocet 5/325 Mg Tab) 1 tab PO Q4 PRN PRN Reason: Pain, moderate (4-7) Stop: 02/16/17 21:56 Ritonavir (Norvir) 100 mg PO DAILY [facility] Sucralfate (Carafate Tab) 1 gm PO BID [facility] Temazepam (Restoril) 15 mg PO HS [facility] Physical Exam - Constitutional Appears: No Acute Distress - Head Exam Head Exam: NORMAL INSPECTION - Eye Exam Eye Exam: EOMI, PERRL - ENT Exam ENT Exam: Normal Oropharynx - Neck Exam Neck exam: Positive for: Normal Inspection - Respiratory Exam Respiratory Exam: Clear to Auscultation Bilateral, NORMAL BREATHING PATTERN - Cardiovascular Exam Cardiovascular Exam: Tachycardia, REGULAR RHYTHM, +S1, +S2 - GI/Abdominal Exam GI & Abdominal Exam: Hypoactive Bowel Sounds, Soft, Tenderness (suprapubic/ right flank.) - Extremities Exam Extremities exam: Positive for: pedal pulses present. Negative for: calf tenderness, pedal edema - Back Exam Back exam: CVA tenderness (R) - Neurological Exam Neurological exam: Alert, CN II-XII Intact, Oriented x3, Reflexes Normal - Psychiatric Exam Psychiatric exam: Normal Mood - Skin Skin Exam: Normal Color, Warm Results - Vital Signs Recent Vital Signs: Last Vital Signs Temp 102.1 F H 02/13/17 20:23 Pulse 125 H 02/13/17 20:23 Resp 18 02/13/17 20:23 BP 110/68 02/13/17 20:23 Pulse Ox 98 02/13/17 21:06 - Labs Result Diagrams: 02/13/17 21:59 02/13/17 21:59 Labs: Laboratory Results - last 24 hr 02/13/17 02/13/17 02/13/17 21:59 21:59 21:59 WBC 12.5 H RBC 3.75 L Hgb 9.6 L Hct 29.6 L MCV 78.9 L MCH 25.5 L MCHC 32.3 L RDW 17.2 H Plt Count 134 MPV 10.6 Neut % (Auto) 72.5 Lymph % (Auto) 14.4 L [place] % (Auto) 12.9 H Eos % (Auto) 0.1 Baso % (Auto) 0.1 Neut # 9.1 H Lymph # 1.8 [place] # 1.6 H Eos # 0.0 Baso # 0.0 PT 17.4 H INR 1.5 APTT 20 L D Sodium 137 Potassium 3.6 Chloride 102 Carbon Dioxide 20 L Anion Gap 19 BUN 14 Creatinine 1.7 H Est GFR ( Amer) 37 Est GFR (Non-Af Amer) 31 Random Glucose 118 H Calcium 8.3 L Total Bilirubin 1.1 AST 16 ALT 23 Alkaline Phosphatase 85 Total Protein 7.1 Albumin 3.4 L Globulin 3.7 Albumin/Globulin Ratio 0.9 L Lipase 63 Urine Color Urine Clarity Urine pH Ur Specific [place] Urine Protein Urine Glucose (UA) Urine Ketones Urine Blood Urine Nitrate Urine Bilirubin Urine Urobilinogen Ur Leukocyte Esterase Urine WBC (Auto) Urine RBC (Auto) Ur Squamous Epith Cells Urine Bacteria 02/13/17 22:00 WBC RBC Hgb Hct MCV MCH MCHC RDW Plt Count MPV Neut % (Auto) Lymph % (Auto) [place] % (Auto) Eos % (Auto) Baso % (Auto) Neut # Lymph # [place] # Eos # Baso # PT INR APTT Sodium Potassium Chloride Carbon Dioxide Anion Gap BUN Creatinine Est GFR ( Amer) Est GFR (Non-Af Amer) Random Glucose Calcium Total Bilirubin AST ALT Alkaline Phosphatase Total Protein Albumin Globulin Albumin/Globulin Ratio Lipase Urine Color [place] Urine Clarity Hazy Urine pH 6.0 Ur Specific [place] 1.015 Urine Protein 2+ H Urine Glucose (UA) Normal Urine Ketones Negative Urine Blood 1+ H Urine Nitrate Negative Urine Bilirubin Negative Urine Urobilinogen Normal Ur Leukocyte Esterase 3+ H Urine WBC (Auto) 452 H Urine RBC (Auto) 15 H Ur Squamous Epith Cells 1 Urine Bacteria Many H Assessment & Plan (1) Sepsis Status: Acute (2) Fever Status: Acute (3) Infection associated with nephrostomy catheter Status: Acute (4) Complicated urinary tract infection Status: Acute (5) Cancer of cervix Status: Chronic (6) Colostomy in place Status: Chronic (7) HIV (human immunodeficiency virus infection) Status: Chronic (8) History of depression Status: Chronic - Assessment and Plan (Free Text) Plan: PLAN; PANCULTURES UA /URINE CULTURES DC BY MOUTH DOXYCYCLINE. CONTINUE iv ZOSYN 2.25 EVERY 8 HOURLY 02/13/17. ADD iv AZACTAM 500 MG iv PIGGYBACK ONCE A DAY DAILY EVERY 24 HOURLY X 3 DAYS 02/13. FOLLOW-UP CULTURES TO ADJUST ANTIBIOTICS. fOLLOW-UP RENAL FUNCTIONS CLOSELY. CONTINUE HAART THERAPY BEFORE.. WE WILL FOLLOW ALONG WITH YOU AND MAKE CHANGES IN ANTIBIOTICS CULTURES OBTAINED.
[2017-02-13] MEDS ORDERED: Piperacill/Tazo 2.25gm in Dex 2.25 GM/50 ML BAG IVPB SCH (23:30)
[2017-02-14] MEDS: Sodium Chloride 0.9% 1,000 ML IV SCH ×3 (00:30→20:21)
[2017-02-14] MEDS: Piperacill/Tazo 2.25gm in Dex 2.25 GM/50 ML BAG IVPB SCH ×3 (05:32→21:32)
[2017-02-14] MEDS ORDERED: Enoxaparin 40 mg Syringe SC SCH (10:00)
--- NOTE | 2017-02-14 11:43 | CP.PCM.PN ---
Subjective - Date & Time of Evaluation Date of Evaluation: 02/14/17 Time of Evaluation: 12:00 - Subjective Subjective: On Azactam, Zosyn by infectious disease, appreciated the help. Improved pain. No further fever. Objective - Vital Signs/Intake and Output Vital Signs (last 24 hours): Temp Pulse Resp BP Pulse Ox 98.2 F 95 H 18 101/66 98 02/14/17 07:40 02/14/17 10:11 02/14/17 07:40 02/14/17 10:11 02/14/17 07:40 Intake and Output: 02/14/17 02/14/17 06:59 18:59 Intake Total 570 Output Total 200 Balance 370 - Medications Medications: Current Medications Acetaminophen (Tylenol 325mg Tab) 650 mg PO Q6 PRN PRN Reason: Fever >100.4 F Albuterol (Ventolin Hfa 90 Mcg/Actuation (8 G)) 2 puff INH RQ4 PRN PRN Reason: Shortness of Breath Apixaban (Eliquis) 5 mg PO BID [facility] Last Admin: 02/14/17 10:15 Dose: 5 mg Darunavir (Prezista) 800 mg PO DAILY [facility] Last Admin: 02/14/17 10:15 Dose: 800 mg Dicyclomine HCl (Bentyl) 20 mg PO TID [facility] Last Admin: 02/14/17 10:16 Dose: 20 mg Docusate Sodium (Colace) 100 mg PO BID [facility] Last Admin: 02/14/17 10:14 Dose: Not Given Dolutegravir Sodium (Tivicay) 50 mg PO DAILY [facility] Last Admin: 02/14/17 10:16 Dose: 50 mg Famciclovir (Famvir) 500 mg PO DAILY [facility] Last Admin: 02/14/17 10:14 Dose: 500 mg Hydromorphone HCl (Dilaudid) 2 mg IVP Q6H PRN PRN Reason: Pain, severe (8-10) Sodium Chloride (Sodium Chloride 0.9%) 1,000 mls @ 60 mls/hr IV .[id number] [facility] Last Admin: 02/14/17 00:30 Dose: 60 mls/hr Piperacillin Sod/Tazobactam Sod (Zosyn 2.25 Gm Iv Premix) 2.25 gm in 50 mls @ 100 mls/hr IVPB Q8H [facility] Last Admin: 02/14/17 05:32 Dose: 100 mls/hr Aztreonam 500 mg/ Sodium (Chloride) 50 mls @ 100 mls/hr IVPB Q24H [facility] Stop: 02/16/17 01:29 Last Admin: 02/14/17 01:00 Dose: 100 mls/hr Ketoconazole (Nizoral) 0 gm TOP BID [facility] Last Admin: 02/14/17 10:13 Dose: Not Given Losartan Potassium (Cozaar) 100 mg PO DAILY [facility] Last Admin: 02/14/17 10:21 Dose: Not Given Metoprolol Tartrate (Lopressor) 100 mg PO [facility] Last Admin: 02/13/17 23:54 Dose: Not Given Montelukast Sodium (Singulair) 10 mg PO DAILY [facility] Last Admin: 02/14/17 10:15 Dose: 10 mg Ondansetron HCl (Zofran Inj) 4 mg IVP Q6 PRN PRN Reason: Nausea/Vomiting Oxybutynin Chloride (Ditropan Xl) 5 mg PO DAILY [facility] Last Admin: 02/14/17 10:16 Dose: 5 mg Oxycodone/Acetaminophen (Percocet 5/325 Mg Tab) 1 tab PO Q4 PRN PRN Reason: Pain, moderate (4-7) Stop: 02/16/17 21:56 Ritonavir (Norvir) 100 mg PO DAILY [facility] Last Admin: 02/14/17 11:38 Dose: 100 mg Sucralfate (Carafate Tab) 1 gm PO BID [facility] Last Admin: 02/14/17 10:14 Dose: 1 gm Temazepam (Restoril) 15 mg PO [facility] - Labs Labs: 02/13/17 21:59 02/13/17 21:59 PT 17.4 SECONDS (9.7-12.2) H 02/13/17 21:59 INR 1.5 02/13/17 21:59 APTT 20 SECONDS (21-34) L D 02/13/17 21:59 - Constitutional Appears: Non-toxic - Head Exam Head Exam: ATRAUMATIC - Eye Exam Eye Exam: EOMI - ENT Exam ENT Exam: Mucous Membranes Moist - Neck Exam Neck Exam: absent: Lymphadenopathy, Thyromegaly - Respiratory Exam Respiratory Exam: Clear to Ausculation Bilateral. absent: Rales - Cardiovascular Exam Cardiovascular Exam: REGULAR RHYTHM, Murmur - GI/Abdominal Exam GI & Abdominal Exam: Normal Bowel Sounds. absent: Organomegaly - Rectal Exam Rectal Exam: Deferred - Extremities Exam Extremities Exam: Normal Capillary Refill. absent: Calf Tenderness - Neurological Exam Neurological Exam: Alert, Oriented x3 - Psychiatric Exam Psychiatric exam: Normal Mood - Skin Skin Exam: Dry Assessment and Plan (1) Infection associated with nephrostomy catheter Status: Acute (2) Intractable pain Status: Acute (3) Malfunction of nephrostomy tube Status: Acute (4) Other mechanical complication of nephrostomy catheter, sequela Status: Acute (5) AIDS Status: Chronic (6) Cancer of cervix Status: Chronic
--- NOTE | 2017-02-14 16:32 | CP.PCM.PN ---
Subjective - Date & Time of Evaluation Date of Evaluation: 02/14/17 Time of Evaluation: 16:32 - Subjective Subjective: CHIEF COMPLAINTS TODAY : afebrile, c/o chills does not feel good ROS. HEENT : N. Resp : No SOB wheezing, cough Cardio : No CP, PND orthopnea GI : +VE ABDOMINAL PAIN,AND FLANK PAIN. [employer] : No headache , focal deficit. Musculoskel : N Ext. : Pedal pulses intact, no edema or calf pain Derm : N Psych : N. PE. Pt. is alert awake in no distress. V.S As noted in the chart Head ,ear nose,throat and eyes : Normal. Neck : Supple with normal carotids. Lungs: Clear air entry. Heart : S1 & S2 normal . . No murmur. S4 + Abd : Soft ,MILD TENDERNESS BOTH FLANKS AND LOWER ABDOMEN, with normal bowel sounds. B/L NT IN PLACE. URINE IN THE BAG CLOUDY. +VE COLOSTOMY.-STOOLS. Neuro : Moves all ext. with no localized deficit. Ext : No edema with intact pulses. Neg. calf tenderness Derm : No rashes or decubitus ulcer. Radiology/Labs . LABS REVIEWED. WBC 12.5 Creatinine 1.7/BUN 14 GFR 32 LFTs normal. Asssessment : -SEPSIS -COMPLICATED UTI -HX OF BILATERAL HYDRONEPHROSIS S/P BILATERAL NT IN PLACE. RECENTLY CHANGED . -CA OF THE CERVIX S/P ILEOSTOMY.. -ACQUIRED IMMUNE DEFICIENCY SYNDROME.. - PRERENAL AZOTEMIA. -HX OF DVT/S/P IVC FILTER/ON ELAQUIS. - Plan : CONTINUE IV zOSYN 2.25 EVERY 8 HOURLY 02/13/17 cONTINUE iv aZACTAM 500 MG iv PIGGYBACK ONCE A DAY DAILY X FOR 3 DAYS. 02/13/17. FOLLOW-UP CULTURES TO ADJUST ANTIBIOTICS. CONTINUE HAART THERAPY. ANALGESICS PER PMD. EVAL PENDING. Objective - Vital Signs/Intake and Output Vital Signs (last 24 hours): Temp Pulse Resp BP Pulse Ox 99.6 F 96 H 18 100/60 100 02/14/17 15:45 02/14/17 15:45 02/14/17 15:45 02/14/17 15:45 02/14/17 15:45 Intake and Output: 02/14/17 02/14/17 06:59 18:59 Intake Total 570 800 Output Total 200 300 Balance 370 500 - Medications Medications: Current Medications Acetaminophen (Tylenol 325mg Tab) 650 mg PO Q6 PRN PRN Reason: Fever >100.4 F Albuterol (Ventolin Hfa 90 Mcg/Actuation (8 G)) 2 puff INH RQ4 PRN PRN Reason: Shortness of Breath Apixaban (Eliquis) 5 mg PO BID [facility] Last Admin: 02/14/17 10:15 Dose: 5 mg Darunavir (Prezista) 800 mg PO DAILY [facility] Last Admin: 02/14/17 10:15 Dose: 800 mg Dicyclomine HCl (Bentyl) 20 mg PO TID [facility] Last Admin: 02/14/17 14:38 Dose: 20 mg Docusate Sodium (Colace) 100 mg PO BID [facility] Last Admin: 02/14/17 10:14 Dose: Not Given Dolutegravir Sodium (Tivicay) 50 mg PO DAILY [facility] Last Admin: 02/14/17 10:16 Dose: 50 mg Famciclovir (Famvir) 500 mg PO DAILY [facility] Last Admin: 02/14/17 10:14 Dose: 500 mg Hydromorphone HCl (Dilaudid) 2 mg IVP Q6H PRN PRN Reason: Pain, severe (8-10) Sodium Chloride (Sodium Chloride 0.9%) 1,000 mls @ 60 mls/hr IV .[id number] [facility] Last Admin: 02/14/17 14:44 Dose: Not Given Piperacillin Sod/Tazobactam Sod (Zosyn 2.25 Gm Iv Premix) 2.25 gm in 50 mls @ 100 mls/hr IVPB Q8H [facility] Last Admin: 02/14/17 14:38 Dose: 100 mls/hr Aztreonam 500 mg/ Sodium (Chloride) 50 mls @ 100 mls/hr IVPB Q24H [facility] Stop: 02/16/17 01:29 Last Admin: 02/14/17 01:00 Dose: 100 mls/hr Ketoconazole (Nizoral) 0 gm TOP BID [facility] Last Admin: 02/14/17 10:13 Dose: Not Given Losartan Potassium (Cozaar) 100 mg PO DAILY [facility] Last Admin: 02/14/17 10:21 Dose: Not Given Metoprolol Tartrate (Lopressor) 100 mg PO HS [facility] Last Admin: 02/13/17 23:54 Dose: Not Given Montelukast Sodium (Singulair) 10 mg PO DAILY [facility] Last Admin: 02/14/17 10:15 Dose: 10 mg Ondansetron HCl (Zofran Inj) 4 mg IVP Q6 PRN PRN Reason: Nausea/Vomiting Last Admin: 02/14/17 14:38 Dose: 4 mg Oxybutynin Chloride (Ditropan Xl) 5 mg PO DAILY [facility] Last Admin: 02/14/17 10:16 Dose: 5 mg Oxycodone/Acetaminophen (Percocet 5/325 Mg Tab) 1 tab PO Q4 PRN PRN Reason: Pain, moderate (4-7) Stop: 02/16/17 21:56 Ritonavir (Norvir) 100 mg PO DAILY [facility] Last Admin: 02/14/17 11:38 Dose: 100 mg Sucralfate (Carafate Tab) 1 gm PO BID [facility] Last Admin: 02/14/17 10:14 Dose: 1 gm Temazepam (Restoril) 15 mg PO [facility] - Labs Labs: 02/13/17 21:59 02/13/17 21:59 PT 17.4 SECONDS (9.7-12.2) H 02/13/17 21:59 INR 1.5 02/13/17 21:59 APTT 20 SECONDS (21-34) L D 02/13/17 21:59 Assessment and Plan (1) Sepsis Status: Acute (2) Fever Status: Acute (3) Complicated urinary tract infection Status: Acute (4) Infection associated with nephrostomy catheter Status: Acute (5) Cancer of cervix Status: Chronic (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
[2017-02-15] MEDS: Piperacill/Tazo 2.25gm in Dex 2.25 GM/50 ML BAG IVPB SCH ×3 (05:23→21:40)
--- NOTE | 2017-02-15 12:25 | CP.PCM.PN ---
Subjective - Date & Time of Evaluation Date of Evaluation: 02/15/17 Time of Evaluation: 12:00 - Subjective Subjective: Chest pain, no fever, on antibiotic. Interventional radiology states no need to replace the catheter replaced 3 weeks ago. Objective - Vital Signs/Intake and Output Vital Signs (last 24 hours): Temp Pulse Resp BP Pulse Ox 98.5 F 74 18 107/74 98 02/15/17 08:31 02/15/17 10:25 02/15/17 08:31 02/15/17 10:25 02/15/17 08:31 Intake and Output: 02/15/17 02/15/17 06:59 18:59 Intake Total 1250 Output Total 175 Balance 1075 - Medications Medications: Current Medications Acetaminophen (Tylenol 325mg Tab) 650 mg PO Q6 PRN PRN Reason: Fever >100.4 F Albuterol (Ventolin Hfa 90 Mcg/Actuation (8 G)) 2 puff INH RQ4 PRN PRN Reason: Shortness of Breath Apixaban (Eliquis) 5 mg PO BID [facility] Last Admin: 02/15/17 10:37 Dose: 5 mg Darunavir (Prezista) 800 mg PO DAILY [facility] Last Admin: 02/15/17 10:36 Dose: 800 mg Dicyclomine HCl (Bentyl) 20 mg PO TID [facility] Last Admin: 02/15/17 10:35 Dose: 20 mg Docusate Sodium (Colace) 100 mg PO BID [facility] Last Admin: 02/15/17 10:38 Dose: Not Given Dolutegravir Sodium (Tivicay) 50 mg PO DAILY [facility] Last Admin: 02/15/17 10:37 Dose: 50 mg Famciclovir (Famvir) 500 mg PO DAILY [facility] Last Admin: 02/15/17 10:37 Dose: 500 mg Hydromorphone HCl (Dilaudid) 2 mg IVP Q6H PRN PRN Reason: Pain, severe (8-10) Sodium Chloride (Sodium Chloride 0.9%) 1,000 mls @ 60 mls/hr IV .[id number] [facility] Last Admin: 02/14/17 20:21 Dose: 60 mls/hr Piperacillin Sod/Tazobactam Sod (Zosyn 2.25 Gm Iv Premix) 2.25 gm in 50 mls @ 100 mls/hr IVPB Q8H [facility] Last Admin: 02/15/17 05:23 Dose: 100 mls/hr Aztreonam 500 mg/ Sodium (Chloride) 50 mls @ 100 mls/hr IVPB Q24H [facility] Stop: 02/16/17 01:29 Last Admin: 02/15/17 01:08 Dose: 100 mls/hr Ketoconazole (Nizoral) 0 gm TOP BID [facility] Last Admin: 02/15/17 10:37 Dose: Not Given Losartan Potassium (Cozaar) 100 mg PO DAILY [facility] Last Admin: 02/15/17 10:36 Dose: 100 mg Metoprolol Tartrate (Lopressor) 100 mg PO HS [facility] Last Admin: 02/14/17 21:33 Dose: Not Given Montelukast Sodium (Singulair) 10 mg PO DAILY [facility] Last Admin: 02/15/17 10:37 Dose: 10 mg Ondansetron HCl (Zofran Inj) 4 mg IVP Q6 PRN PRN Reason: Nausea/Vomiting Last Admin: 02/14/17 14:38 Dose: 4 mg Oxybutynin Chloride (Ditropan Xl) 5 mg PO DAILY [facility] Last Admin: 02/15/17 10:36 Dose: 5 mg Oxycodone/Acetaminophen (Percocet 5/325 Mg Tab) 1 tab PO Q4 PRN PRN Reason: Pain, moderate (4-7) Stop: 02/16/17 21:56 Ritonavir (Norvir) 100 mg PO DAILY [facility] Last Admin: 02/15/17 10:37 Dose: 100 mg Sucralfate (Carafate Tab) 1 gm PO BID [facility] Last Admin: 02/15/17 10:37 Dose: 1 gm Temazepam (Restoril) 15 mg PO HS [facility] Last Admin: 02/14/17 21:32 Dose: 15 mg - Labs Labs: 02/13/17 21:59 02/13/17 21:59 PT 17.4 SECONDS (9.7-12.2) H 02/13/17 21:59 INR 1.5 02/13/17 21:59 APTT 20 SECONDS (21-34) L D 02/13/17 21:59 - Constitutional Appears: Non-toxic - Head Exam Head Exam: ATRAUMATIC - Eye Exam Eye Exam: EOMI - ENT Exam ENT Exam: Mucous Membranes Moist - Neck Exam Neck Exam: absent: Lymphadenopathy, Thyromegaly - Respiratory Exam Respiratory Exam: Clear to Ausculation Bilateral. absent: Rales - Cardiovascular Exam Cardiovascular Exam: REGULAR RHYTHM. absent: Murmur - GI/Abdominal Exam GI & Abdominal Exam: Normal Bowel Sounds. absent: Organomegaly - Rectal Exam Rectal Exam: Deferred - Extremities Exam Extremities Exam: Normal Capillary Refill. absent: Calf Tenderness - Neurological Exam Neurological Exam: Alert, Oriented x3 - Psychiatric Exam Psychiatric exam: Anxious - Skin Skin Exam: Dry Assessment and Plan (1) Infection associated with nephrostomy catheter Status: Acute (2) Intractable pain Status: Acute (3) Malfunction of nephrostomy tube Status: Acute (4) Other mechanical complication of nephrostomy catheter, sequela Status: Acute (5) AIDS Status: Chronic (6) Cancer of cervix Status: Chronic
--- NOTE | 2017-02-15 13:46 | CP.PCM.PN ---
Subjective - Date & Time of Evaluation Date of Evaluation: 02/15/17 Time of Evaluation: 13:46 - Subjective Subjective: CHIEF COMPLAINTS TODAY : afebrile, TEMP DOWN FEELS BETTER SEEN BY EVER RICHARDS. HEENT : N. Resp : No SOB wheezing, cough Cardio : No CP, PND orthopnea GI : +VE ABDOMINAL PAIN,AND FLANK PAIN. 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 Musculoskel : N Ext. : Pedal pulses intact, no edema or calf pain Derm : N Psych : N. PE. Pt. is alert awake in no distress. V.S As noted in the chart Head ,ear nose,throat and eyes : Normal. Neck : Supple with normal carotids. Lungs: Clear air entry. Heart : S1 & S2 normal . . No murmur. S4 + Abd : Soft ,MILD TENDERNESS BOTH FLANKS AND LOWER ABDOMEN, with normal bowel sounds. B/L NT IN PLACE. URINE IN THE BAG CLOUDY. +VE COLOSTOMY.-STOOLS. Neuro : Moves all ext. with no localized deficit. Ext : No edema with intact pulses. Neg. calf tenderness Derm : No rashes or decubitus ulcer. Radiology/Labs . LABS REVIEWED. URINE CULTURES GRAM-NEGATIVE VALDEMAR (identification pending ) WBC 12.5 Creatinine 1.7/BUN 14 GFR 32 LFTs normal. Asssessment : -SEPSIS -COMPLICATED UTI -HX OF BILATERAL HYDRONEPHROSIS S/P BILATERAL NT IN PLACE. RECENTLY CHANGED . -CA OF THE CERVIX S/P ILEOSTOMY.. -ACQUIRED IMMUNE DEFICIENCY SYNDROME.. - PRERENAL AZOTEMIA. -HX OF DVT/S/P IVC FILTER/ON ELAQUIS. - Plan : CONTINUE IV zOSYN 2.25 EVERY 8 HOURLY 02/13/17 cONTINUE iv aZACTAM 500 MG iv PIGGYBACK ONCE A DAY DAILY X FOR 3 DAYS. 02/13/17. FOLLOW-UP CULTURES TO ADJUST ANTIBIOTICS. CONTINUE HAART THERAPY. ANALGESICS PER PMD. Objective - Vital Signs/Intake and Output Vital Signs (last 24 hours): Temp Pulse Resp BP Pulse Ox 98.5 F 74 18 107/74 98 02/15/17 08:31 02/15/17 10:25 02/15/17 08:31 02/15/17 10:25 02/15/17 08:31 Intake and Output: 02/15/17 02/15/17 06:59 18:59 Intake Total 1250 Output Total 175 Balance 1075 - Medications Medications: Current Medications Acetaminophen (Tylenol 325mg Tab) 650 mg PO Q6 PRN PRN Reason: Fever >100.4 F Albuterol (Ventolin Hfa 90 Mcg/Actuation (8 G)) 2 puff INH RQ4 PRN PRN Reason: Shortness of Breath Apixaban (Eliquis) 5 mg PO BID [facility] Last Admin: 02/15/17 10:37 Dose: 5 mg Darunavir (Prezista) 800 mg PO DAILY [facility] Last Admin: 02/15/17 10:36 Dose: 800 mg Dicyclomine HCl (Bentyl) 20 mg PO TID [facility] Last Admin: 02/15/17 10:35 Dose: 20 mg Docusate Sodium (Colace) 100 mg PO BID [facility] Last Admin: 02/15/17 10:38 Dose: Not Given Dolutegravir Sodium (Tivicay) 50 mg PO DAILY [facility] Last Admin: 02/15/17 10:37 Dose: 50 mg Famciclovir (Famvir) 500 mg PO DAILY [facility] Last Admin: 02/15/17 10:37 Dose: 500 mg Hydromorphone HCl (Dilaudid) 2 mg IVP Q6H PRN PRN Reason: Pain, severe (8-10) Sodium Chloride (Sodium Chloride 0.9%) 1,000 mls @ 60 mls/hr IV .[id number] [facility] Last Admin: 02/14/17 20:21 Dose: 60 mls/hr Piperacillin Sod/Tazobactam Sod (Zosyn 2.25 Gm Iv Premix) 2.25 gm in 50 mls @ 100 mls/hr IVPB Q8H [facility] Last Admin: 02/15/17 05:23 Dose: 100 mls/hr Aztreonam 500 mg/ Sodium (Chloride) 50 mls @ 100 mls/hr IVPB Q24H [facility] Stop: 02/16/17 01:29 Last Admin: 02/15/17 01:08 Dose: 100 mls/hr Ketoconazole (Nizoral) 0 gm TOP BID [facility] Last Admin: 02/15/17 10:37 Dose: Not Given Losartan Potassium (Cozaar) 100 mg PO DAILY [facility] Last Admin: 02/15/17 10:36 Dose: 100 mg Metoprolol Tartrate (Lopressor) 100 mg PO HS [facility] Last Admin: 02/14/17 21:33 Dose: Not Given Montelukast Sodium (Singulair) 10 mg PO DAILY [facility] Last Admin: 02/15/17 10:37 Dose: 10 mg Ondansetron HCl (Zofran Inj) 4 mg IVP Q6 PRN PRN Reason: Nausea/Vomiting Last Admin: 02/14/17 14:38 Dose: 4 mg Oxybutynin Chloride (Ditropan Xl) 5 mg PO DAILY [facility] Last Admin: 02/15/17 10:36 Dose: 5 mg Oxycodone/Acetaminophen (Percocet 5/325 Mg Tab) 1 tab PO Q4 PRN PRN Reason: Pain, moderate (4-7) Stop: 02/16/17 21:56 Ritonavir (Norvir) 100 mg PO DAILY [facility] Last Admin: 02/15/17 10:37 Dose: 100 mg Sucralfate (Carafate Tab) 1 gm PO BID [facility] Last Admin: 02/15/17 10:37 Dose: 1 gm Temazepam (Restoril) 15 mg PO HS [facility] Last Admin: 02/14/17 21:32 Dose: 15 mg - Labs Labs: 02/13/17 21:59 02/13/17 21:59 PT 17.4 SECONDS (9.7-12.2) H 02/13/17 21:59 INR 1.5 02/13/17 21:59 APTT 20 SECONDS (21-34) L D 02/13/17 21:59 Assessment and Plan (1) Sepsis Status: Acute (2) Fever Status: Acute (3) Complicated urinary tract infection Status: Acute (4) Infection associated with nephrostomy catheter Status: Acute (5) Cancer of cervix Status: Chronic (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
[2017-02-15 17:10] VITALS: RESP 20
[2017-02-15] MEDS: Sodium Chloride 0.9% 1,000 ML IV SCH (17:47)
[2017-02-16] MEDS: Sodium Chloride 0.9% 1,000 ML IV SCH ×3 (00:52→17:27)
[2017-02-16] MEDS: Piperacill/Tazo 2.25gm in Dex 2.25 GM/50 ML BAG IVPB SCH (05:52)
--- NOTE | 2017-02-16 08:34 | CON ---
DATE: HISTORY OF PRESENT ILLNESS: The patient is a 61-year-old with history of cervical cancer, bilateral nephrostomy because of obstruction and recurrent UTI. The patient presents with fever, chills, and she has positive culture around the stent. I gave the patient the culture. She brought it to the hospital when she came in. After starting antibiotic, start feeling well. PHYSICAL EXAMINATION: Reveal abdomen soft. Nephrostomy functioning well with some discharge around the nephrostomy tube. No suprapubic fullness or tenderness. IMPRESSION: Skin infection around the nephrostomy with the urinary tract infection. PLAN: Continue antibiotic. We will start changing the dressing with Betadine cleaning daily. Cece Knutson MD
[2017-02-16 09:54] LABS: BASO % 0.7 % (0.0-2.0); EOS # 0.1 K/uL (0.0-0.7); EOS % 1.4 % (0.0-4.0); HEMATOCRIT 27.6 % (34.0-47.0); LYMPH # 1.5 K/uL (1.0-4.3); LYMPH % 28.2 % (20.0-40.0); MEAN CORPUSCULAR HEMOGLOBIN 25.4 pg (27.0-31.0); MEAN CORPUSCULAR HGB CONC 31.4 g/dL (33.0-37.0); MEAN PLATELET VOLUME 10.8 fL (7.2-11.7); MONO # 0.6 K/uL (0.0-0.8); MONO % 10.9 % (0.0-10.0); NRBC % 0.1 % (0.0-2.0); RED CELL DISTRIBUTION WIDTH 17.7 % (11.5-14.5)
[2017-02-16 09:58] LABS: MEAN CELL VOLUME 80.9 fL (81.0-99.0); WHITE BLOOD COUNT 5.4 K/uL (4.8-10.8)
[2017-02-16 10:05] LABS: ALB/GLOB RATIO 0.8 (1.0-2.1); BILIRUBIN,DIRECT 0.6 mg/dL (0.0-0.4); BILIRUBIN,TOTAL 0.6 mg/dL (0.2-1.3); CALCIUM 8.2 mg/dl (8.6-10.4); POTASSIUM 4.3 mmol/L (3.6-5.2); TOTAL PROTEIN 6.7 g/dL (6.3-8.3)
--- NOTE | 2017-02-16 12:40 | CP.PCM.PN ---
Subjective - Date & Time of Evaluation Date of Evaluation: 02/16/17 Time of Evaluation: 12:00 - Subjective Subjective: Blood cultures are negative, urine culture with Klebsiella, improved clinically. As per ID IV medication for 3 days, would consider discharge in a.m. Objective - Vital Signs/Intake and Output Vital Signs (last 24 hours): Temp Pulse Resp BP Pulse Ox 98.4 F 63 20 134/55 L 97 02/16/17 08:27 02/16/17 08:27 02/16/17 08:27 02/16/17 08:27 02/16/17 08:27 Intake and Output: 02/16/17 02/16/17 06:59 18:59 Intake Total 880 Output Total 750 Balance 130 - Medications Medications: Current Medications Acetaminophen (Tylenol 325mg Tab) 650 mg PO Q6 PRN PRN Reason: Fever >100.4 F Albuterol (Ventolin Hfa 90 Mcg/Actuation (8 G)) 2 puff INH RQ4 PRN PRN Reason: Shortness of Breath Apixaban (Eliquis) 5 mg PO BID [facility] Last Admin: 02/16/17 09:40 Dose: 5 mg Darunavir (Prezista) 800 mg PO DAILY [facility] Last Admin: 02/16/17 09:39 Dose: 800 mg Dicyclomine HCl (Bentyl) 20 mg PO TID [facility] Last Admin: 02/16/17 09:39 Dose: 20 mg Docusate Sodium (Colace) 100 mg PO BID [facility] Last Admin: 02/16/17 10:43 Dose: Not Given Dolutegravir Sodium (Tivicay) 50 mg PO DAILY [facility] Last Admin: 02/16/17 09:39 Dose: 50 mg Famciclovir (Famvir) 500 mg PO DAILY [facility] Last Admin: 02/16/17 09:39 Dose: 500 mg Hydromorphone HCl (Dilaudid) 2 mg IVP Q6H PRN PRN Reason: Pain, severe (8-10) Sodium Chloride (Sodium Chloride 0.9%) 1,000 mls @ 60 mls/hr IV .[id number] [facility] Last Admin: 02/16/17 10:44 Dose: 60 mls/hr Piperacillin Sod/Tazobactam Sod (Zosyn 2.25 Gm Iv Premix) 2.25 gm in 50 mls @ 100 mls/hr IVPB Q8H [facility] Last Admin: 02/16/17 05:52 Dose: 100 mls/hr Ketoconazole (Nizoral) 0 gm TOP BID [facility] Last Admin: 02/16/17 10:43 Dose: Not Given Losartan Potassium (Cozaar) 100 mg PO DAILY [facility] Last Admin: 02/16/17 09:40 Dose: 100 mg Metoprolol Tartrate (Lopressor) 100 mg PO HS [facility] Last Admin: 02/15/17 21:40 Dose: 100 mg Montelukast Sodium (Singulair) 10 mg PO DAILY [facility] Last Admin: 02/16/17 09:39 Dose: 10 mg Ondansetron HCl (Zofran Inj) 4 mg IVP Q6 PRN PRN Reason: Nausea/Vomiting Last Admin: 02/14/17 14:38 Dose: 4 mg Oxybutynin Chloride (Ditropan Xl) 5 mg PO DAILY [facility] Last Admin: 02/16/17 09:40 Dose: 5 mg Oxycodone/Acetaminophen (Percocet 5/325 Mg Tab) 1 tab PO Q4 PRN PRN Reason: Pain, moderate (4-7) Stop: 02/16/17 21:56 Ritonavir (Norvir) 100 mg PO DAILY [facility] Last Admin: 02/16/17 10:49 Dose: 100 mg Sucralfate (Carafate Tab) 1 gm PO BID [facility] Last Admin: 02/16/17 09:39 Dose: 1 gm Temazepam (Restoril) 15 mg PO [facility] Last Admin: 02/15/17 21:45 Dose: Not Given - Labs Labs: 02/16/17 09:48 02/16/17 09:48 PT 17.4 SECONDS (9.7-12.2) H 02/13/17 21:59 INR 1.5 02/13/17 21:59 APTT 20 SECONDS (21-34) L D 02/13/17 21:59 - Constitutional Appears: Non-toxic - Head Exam Head Exam: ATRAUMATIC - Eye Exam Eye Exam: EOMI - ENT Exam ENT Exam: Mucous Membranes Moist - Neck Exam Neck Exam: absent: Lymphadenopathy, Thyromegaly - Respiratory Exam Respiratory Exam: Clear to Ausculation Bilateral. absent: Rales - Cardiovascular Exam Cardiovascular Exam: REGULAR RHYTHM, Murmur - GI/Abdominal Exam GI & Abdominal Exam: Normal Bowel Sounds. absent: Organomegaly - Rectal Exam Rectal Exam: Deferred - Extremities Exam Extremities Exam: Normal Capillary Refill. absent: Calf Tenderness - Neurological Exam Neurological Exam: Alert, Oriented x3 - Psychiatric Exam Psychiatric exam: Normal Mood - Skin Skin Exam: Dry Assessment and Plan (1) Infection associated with nephrostomy catheter Status: Acute (2) Intractable pain Status: Acute (3) Malfunction of nephrostomy tube Status: Acute (4) Other mechanical complication of nephrostomy catheter, sequela Status: Acute (5) AIDS Status: Chronic (6) Cancer of cervix Status: Chronic
--- NOTE | 2017-02-16 13:24 | CP.PCM.PN ---
Subjective - Date & Time of Evaluation Date of Evaluation: 02/16/17 Time of Evaluation: 13:24 - Subjective Subjective: CHIEF COMPLAINTS TODAY : afebrile, TEMP DOWN FEELS BETTER IV ABX CHANGED TO iv CEFEPIME 02/16 iN VIEW OF CULTURES POSITIVE FOR kLEBSIELLA OXYTOCA. ROS. HEENT : N. Resp : No SOB wheezing, cough Cardio : No CP, PND orthopnea GI : +VE ABDOMINAL PAIN,AND FLANK PAIN. 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 Musculoskel : N Ext. : Pedal pulses intact, no edema or calf pain Derm : N Psych : N. PE. Pt. is alert awake in no distress. V.S As noted in the chart Head ,ear nose,throat and eyes : Normal. Neck : Supple with normal carotids. Lungs: Clear air entry. Heart : S1 & S2 normal . . No murmur. S4 + Abd : Soft ,MILD TENDERNESS BOTH FLANKS AND LOWER ABDOMEN, with normal bowel sounds. B/L NT IN PLACE. URINE IN THE BAG CLOUDY. +VE COLOSTOMY.-STOOLS. Neuro : Moves all ext. with no localized deficit. Ext : No edema with intact pulses. Neg. calf tenderness Derm : No rashes or decubitus ulcer. Radiology/Labs . LABS REVIEWED. URINE CULTURES +VE kLEBSIELLA OXYTOCA S- CEFEPIME Asssessment : -SEPSIS -COMPLICATED UTI -HX OF BILATERAL HYDRONEPHROSIS S/P BILATERAL NT IN PLACE. RECENTLY CHANGED . -CA OF THE CERVIX S/P ILEOSTOMY.. -ACQUIRED IMMUNE DEFICIENCY SYNDROME.. - PRERENAL AZOTEMIA. -HX OF DVT/S/P IVC FILTER/ON ELAQUIS. - Plan : DISCONTINUE IV zOSYN 2.25 EVERY 8 HOURLY 02/13/17 start IV cefepime 1 g every 12 hourly x3days.02/16/17 patient cannot tolerate by mouth antibiotics. PATIENT CAN BE DISCHARGED MONDAY AFTER MORNING DOSE Case discussed with [facility] [address] KELLY PMD. F/U REPEAT URINE CULTURES. CONTINUE HAART THERAPY. ANALGESICS PER PMD. Objective - Vital Signs/Intake and Output Vital Signs (last 24 hours): Temp Pulse Resp BP Pulse Ox 98.4 F 63 20 134/55 L 97 02/16/17 08:27 02/16/17 08:27 02/16/17 08:27 02/16/17 08:27 02/16/17 08:27 Intake and Output: 02/16/17 02/16/17 06:59 18:59 Intake Total 880 Output Total 750 Balance 130 - Medications Medications: Current Medications Acetaminophen (Tylenol 325mg Tab) 650 mg PO Q6 PRN PRN Reason: Fever >100.4 F Albuterol (Ventolin Hfa 90 Mcg/Actuation (8 G)) 2 puff INH RQ4 PRN PRN Reason: Shortness of Breath Apixaban (Eliquis) 5 mg PO BID [facility] Last Admin: 02/16/17 09:40 Dose: 5 mg Darunavir (Prezista) 800 mg PO DAILY [facility] Last Admin: 02/16/17 09:39 Dose: 800 mg Dicyclomine HCl (Bentyl) 20 mg PO TID [facility] Last Admin: 02/16/17 09:39 Dose: 20 mg Docusate Sodium (Colace) 100 mg PO BID [facility] Last Admin: 02/16/17 10:43 Dose: Not Given Dolutegravir Sodium (Tivicay) 50 mg PO DAILY [facility] Last Admin: 02/16/17 09:39 Dose: 50 mg Famciclovir (Famvir) 500 mg PO DAILY [facility] Last Admin: 02/16/17 09:39 Dose: 500 mg Hydromorphone HCl (Dilaudid) 2 mg IVP Q6H PRN PRN Reason: Pain, severe (8-10) Sodium Chloride (Sodium Chloride 0.9%) 1,000 mls @ 60 mls/hr IV .[id number] [facility] Last Admin: 02/16/17 10:44 Dose: 60 mls/hr Piperacillin Sod/Tazobactam Sod (Zosyn 2.25 Gm Iv Premix) 2.25 gm in 50 mls @ 100 mls/hr IVPB Q8H [facility] Last Admin: 02/16/17 05:52 Dose: 100 mls/hr Ketoconazole (Nizoral) 0 gm TOP BID [facility] Last Admin: 02/16/17 10:43 Dose: Not Given Losartan Potassium (Cozaar) 100 mg PO DAILY [facility] Last Admin: 02/16/17 09:40 Dose: 100 mg Metoprolol Tartrate (Lopressor) 100 mg PO HS [facility] Last Admin: 02/15/17 21:40 Dose: 100 mg Montelukast Sodium (Singulair) 10 mg PO DAILY [facility] Last Admin: 02/16/17 09:39 Dose: 10 mg Ondansetron HCl (Zofran Inj) 4 mg IVP Q6 PRN PRN Reason: Nausea/Vomiting Last Admin: 02/14/17 14:38 Dose: 4 mg Oxybutynin Chloride (Ditropan Xl) 5 mg PO DAILY [facility] Last Admin: 02/16/17 09:40 Dose: 5 mg Oxycodone/Acetaminophen (Percocet 5/325 Mg Tab) 1 tab PO Q4 PRN PRN Reason: Pain, moderate (4-7) Stop: 02/16/17 21:56 Ritonavir (Norvir) 100 mg PO DAILY [facility] Last Admin: 02/16/17 10:49 Dose: 100 mg Sucralfate (Carafate Tab) 1 gm PO BID [facility] Last Admin: 02/16/17 09:39 Dose: 1 gm Temazepam (Restoril) 15 mg PO HS [facility] Last Admin: 02/15/17 21:45 Dose: Not Given - Labs Labs: 02/16/17 09:48 02/16/17 09:48 PT 17.4 SECONDS (9.7-12.2) H 02/13/17 21:59 INR 1.5 02/13/17 21:59 APTT 20 SECONDS (21-34) L D 02/13/17 21:59 Assessment and Plan (1) Sepsis Status: Acute (2) Fever Status: Acute (3) Complicated urinary tract infection Status: Acute (4) Infection associated with nephrostomy catheter Status: Acute (5) Cancer of cervix Status: Chronic (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
[2017-02-16] MEDS: Cefepime IV 1 gm in Dextrose 1 GM/50 ML BAG IVPB SCH (14:38)
[2017-02-17] MEDS: Cefepime IV 1 gm in Dextrose 1 GM/50 ML BAG IVPB SCH ×2 (01:13→14:13)
--- NOTE | 2017-02-17 07:15 | CP.PCM.CON ---
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 Patient has had multiple hospitalizations at [facility] for complicated UTIs and for change of bilateral nephrostomy tubes every 3 months. Patient recently had bilateral nephrostomy tube changes on 01/09/[address] Cui for moderate right hydronephrosis and ureteral obstruction. Came to the hospital for possible sepsis and is being tx as such likely from UTI. Pt was seen in the office for complaints of refractory GERD and reports of intermittent bloody oupt from colostomy. Pt denies nay associated pain, melena, hematemesis or coffee-ground emesis. Pt has not had any reported blood oupt in her bad since her admission. Pt was scheduled for oupt EGD and colonoscopy on 02/13, but was unable to go 2/2 hospitalization. PMHx: see HPI. Nephrostomy and colostomy were done due to damages from chemoradiation for cervical CA. Pt visited PMD for routine HIV follow up on 2015 and was told viral count undetectable. CD4 145 on 08/19/14 per record. PSHx: Cervical CA resection 2000, colostomy bag 2009. FMHx: both parents from [place]. Sister and brother had [place]. Social: former smoker, 5 cigarettes to 1 pack a day for 10 years, stopped 2011. Denied ETOH or drugs use. Lives alone, unemployeed. Past Patient History - Infectious Disease Hx of Infectious Diseases: None - Past Medical History & Family History Past Medical History?: Yes - Past Social History Smoking Status: Never Smoked - CARDIAC Hx Congestive Heart Failure: Yes Hx Hypercholesterolemia: Yes Hx Hypertension: Yes Hx Peripheral Edema: Yes - PULMONARY Hx Asthma: Yes Hx Chronic Obstructive Pulmonary Disease (COPD): Yes - NEUROLOGICAL Hx Neurological Disorder: Yes Hx Syncope: Yes Other/Comment: HEADACHES - HEENT Hx HEENT Problems: Yes Hx Cataracts: Yes (BILATERAL) - RENAL Hx Chronic Kidney Disease: Yes Hx Kidney Stones: Yes - HEMATOLOGICAL/ONCOLOGICAL Hx Anemia: Yes Hx Human Immunodeficiency Virus (HIV): Yes - MUSCULOSKELETAL/RHEUMATOLOGICAL Hx Arthritis: Yes Hx Osteoporosis: Yes - GASTROINTESTINAL Hx Gastritis: Yes Hx Pancreatitis: Yes - GENITOURINARY/GYNECOLOGICAL Hx Reproductive Disorders: Yes (S/P HYSTERECTOMY) Other/Comment: NEPHROSTOMY TUBES - PSYCHIATRIC Hx Anxiety: Yes Hx Depression: Yes Hx Substance Use: No - SURGICAL HISTORY Hx Cholecystectomy: Yes - ANESTHESIA Hx Malignant Hyperthermia: No Meds Allergies/Adverse Reactions: Allergies Allergy/AdvReac Type Severity Reaction Status Date / Time sulfamethoxazole Allergy Intermediate ITCHING Verified 01/04/17 11:36 [From Bactrim] aloe vera Allergy ITCHING Verified 01/04/17 11:36 Sulfa (Sulfonamide Allergy ITCHING Verified 01/04/17 11:36 Antibiotics) - Medications Medications: Current Medications Acetaminophen (Tylenol 325mg Tab) 650 mg PO Q6 PRN PRN Reason: Fever >100.4 F Albuterol (Ventolin Hfa 90 Mcg/Actuation (8 G)) 2 puff INH RQ4 PRN PRN Reason: Shortness of Breath Apixaban (Eliquis) 5 mg PO BID [facility] Last Admin: 02/16/17 17:24 Dose: 5 mg Darunavir (Prezista) 800 mg PO DAILY [facility] Last Admin: 02/16/17 09:39 Dose: 800 mg Dicyclomine HCl (Bentyl) 20 mg PO TID [facility] Last Admin: 02/16/17 17:24 Dose: 20 mg Docusate Sodium (Colace) 100 mg PO BID [facility] Last Admin: 02/16/17 17:23 Dose: 100 mg Dolutegravir Sodium (Tivicay) 50 mg PO DAILY [facility] Last Admin: 02/16/17 09:39 Dose: 50 mg Famciclovir (Famvir) 500 mg PO DAILY [facility] Last Admin: 02/16/17 09:39 Dose: 500 mg Hydromorphone HCl (Dilaudid) 2 mg IVP Q6H PRN PRN Reason: Pain, severe (8-10) Sodium Chloride (Sodium Chloride 0.9%) 1,000 mls @ 60 mls/hr IV .[id number] [facility] Last Admin: 02/16/17 17:27 Dose: Not Given Cefepime HCl (Maxipime Iv 1 Gm Premix) 1 gm in 50 mls @ 100 mls/hr IVPB Q12H [facility] Last Admin: 02/17/17 01:13 Dose: 100 mls/hr Ketoconazole (Nizoral) 0 gm TOP BID [facility] Last Admin: 02/16/17 17:24 Dose: Not Given Losartan Potassium (Cozaar) 100 mg PO DAILY [facility] Last Admin: 02/16/17 09:40 Dose: 100 mg Metoprolol Tartrate (Lopressor) 100 mg PO HS [facility] Last Admin: 02/16/17 21:28 Dose: 100 mg Montelukast Sodium (Singulair) 10 mg PO DAILY [facility] Last Admin: 02/16/17 09:39 Dose: 10 mg Ondansetron HCl (Zofran Inj) 4 mg IVP Q6 PRN PRN Reason: Nausea/Vomiting Last Admin: 02/14/17 14:38 Dose: 4 mg Oxybutynin Chloride (Ditropan Xl) 5 mg PO DAILY [facility] Last Admin: 02/16/17 09:40 Dose: 5 mg Ritonavir (Norvir) 100 mg PO DAILY [facility] Last Admin: 02/16/17 10:49 Dose: 100 mg Sucralfate (Carafate Tab) 1 gm PO BID [facility] Last Admin: 02/16/17 17:24 Dose: 1 gm Temazepam (Restoril) 15 mg PO HS [facility] Last Admin: 02/16/17 21:28 Dose: 15 mg Physical Exam - Head Exam Head Exam: ATRAUMATIC, NORMOCEPHALIC - Eye Exam Eye Exam: Normal appearance - ENT Exam ENT Exam: Mucous Membranes Moist - Respiratory Exam Respiratory Exam: Clear to Auscultation Bilateral, NORMAL BREATHING PATTERN. absent: Rales, Rhonchi, Wheezes - Cardiovascular Exam Cardiovascular Exam: REGULAR RHYTHM, +S1, +S2 - GI/Abdominal Exam GI & Abdominal Exam: Normal Bowel Sounds, Soft. absent: Distended, Firm, Guarding, Rigid, Tenderness Additional comments: ostomy pink, no discharge or blood in the ostomy bag - Neurological Exam Neurological exam: Alert, Oriented x3 - Psychiatric Exam Psychiatric exam: Normal Affect, Normal Mood - Skin Skin Exam: Dry, Intact, Normal Color, Warm Results - Vital Signs Recent Vital Signs: Last Vital Signs Temp 97.9 F 02/17/17 00:00 Pulse 68 02/17/17 00:00 Resp 20 02/17/17 00:00 BP 131/79 02/17/17 00:00 Pulse Ox 98 02/17/17 00:00 - Labs Result Diagrams: 02/16/17 09:48 02/16/17 09:48 Labs: Laboratory Results - last 24 hr 02/16/17 02/16/17 09:48 09:48 WBC 5.4 D RBC 3.41 L Hgb 8.7 L Hct 27.6 L MCV 80.9 L D MCH 25.4 L MCHC 31.4 L RDW 17.7 H Plt Count 171 MPV 10.8 Neut % (Auto) 58.8 Lymph % (Auto) 28.2 Bates % (Auto) 10.9 H Eos % (Auto) 1.4 Baso % (Auto) 0.7 Neut # 3.2 Lymph # 1.5 Bates # 0.6 Eos # 0.1 Baso # 0.0 Sodium 143 Potassium 4.3 Chloride 112 H Carbon Dioxide 20 L Anion Gap 15 BUN 16 Creatinine 1.5 H Est GFR ( Amer) 43 Est GFR (Non-Af Amer) 36 Random Glucose 88 Calcium 8.2 L Total Bilirubin 0.6 Direct Bilirubin 0.6 H AST 16 ALT 28 Alkaline Phosphatase 83 Total Protein 6.7 Albumin 3.0 L Globulin 3.7 Albumin/Globulin Ratio 0.8 L Assessment & Plan - Assessment and Plan (Free Text) Assessment: Joan Garcia is a 61F w/ hx of GERD, blood in her colostomy bag, colostomy who presents to the ED due to sepsis. Pt has a hx of refactory GERD and possble oupt from colostomy etiology: ulcer vs AVM vs malignancy 1. Refractory GERD 2. Questionable blood in colostomy 3. hx of colosctomy Plan: -will do EGD and colonoscopy as outpt -if pt remains here till Monday will consider doing it inpt -continue PPI as prescribed -follow-up with Dr. Dean -yulia PRN as for break through GERD D/W Dr. Dean <Jon Dean - Last Filed: 02/17/17 14:45> Meds - Medications Medications: Current Medications Acetaminophen (Tylenol 325mg Tab) 650 mg PO Q6 PRN PRN Reason: Fever >100.4 F Albuterol (Ventolin Hfa 90 Mcg/Actuation (8 G)) 2 puff INH RQ4 PRN PRN Reason: Shortness of Breath Apixaban (Eliquis) 5 mg PO BID [facility] Last Admin: 02/17/17 11:00 Dose: 5 mg Darunavir (Prezista) 800 mg PO DAILY [facility] Last Admin: 02/17/17 10:59 Dose: 800 mg Dicyclomine HCl (Bentyl) 20 mg PO TID [facility] Last Admin: 02/17/17 14:14 Dose: Not Given Docusate Sodium (Colace) 100 mg PO BID [facility] Last Admin: 02/17/17 11:53 Dose: Not Given Dolutegravir Sodium (Tivicay) 50 mg PO DAILY [facility] Last Admin: 02/17/17 10:59 Dose: 50 mg Famciclovir (Famvir) 500 mg PO DAILY [facility] Last Admin: 02/17/17 10:58 Dose: 500 mg Hydromorphone HCl (Dilaudid) 2 mg IVP Q6H PRN PRN Reason: Pain, severe (8-10) Sodium Chloride (Sodium Chloride 0.9%) 1,000 mls @ 60 mls/hr IV .[id number] [facility] Last Admin: 02/16/17 17:27 Dose: Not Given Cefepime HCl (Maxipime Iv 1 Gm Premix) 1 gm in 50 mls @ 100 mls/hr IVPB Q12H [facility] Last Admin: 02/17/17 14:13 Dose: 100 mls/hr Ketoconazole (Nizoral) 0 gm TOP BID [facility] Last Admin: 02/17/17 11:00 Dose: Not Given Losartan Potassium (Cozaar) 100 mg PO DAILY [facility] Last Admin: 02/17/17 10:59 Dose: 100 mg Metoprolol Tartrate (Lopressor) 100 mg PO [facility] Last Admin: 02/16/17 21:28 Dose: 100 mg Montelukast Sodium (Singulair) 10 mg PO DAILY [facility] Last Admin: 02/17/17 10:59 Dose: 10 mg Ondansetron HCl (Zofran Inj) 4 mg IVP Q6 PRN PRN Reason: Nausea/Vomiting Last Admin: 02/14/17 14:38 Dose: 4 mg Oxybutynin Chloride (Ditropan Xl) 5 mg PO DAILY [facility] Last Admin: 02/17/17 10:59 Dose: 5 mg Ritonavir (Norvir) 100 mg PO DAILY [facility] Last Admin: 02/17/17 10:59 Dose: 100 mg Sucralfate (Carafate Tab) 1 gm PO BID [facility] Last Admin: 02/17/17 11:53 Dose: Not Given Temazepam (Restoril) 15 mg PO HS [facility] Last Admin: 02/16/17 21:28 Dose: 15 mg Results - Vital Signs Recent Vital Signs: Last Vital Signs Temp 98.4 F 02/17/17 08:01 Pulse 66 02/17/17 08:01 Resp 20 02/17/17 08:01 BP 147/84 02/17/17 08:01 Pulse Ox 100 02/17/17 08:01 - Labs Result Diagrams: 02/16/17 09:48 02/16/17 09:48 Labs: Laboratory Results - last 24 hr 02/17/17 09:44 Urine Color Yellow Urine Clarity Clear Urine pH 6.0 Ur Specific [place] 1.010 Urine Protein Negative Urine Glucose (UA) Normal Urine Ketones Negative Urine Blood 2+ H Urine Nitrate Negative Urine Bilirubin Negative Urine Urobilinogen Normal Ur Leukocyte Esterase 2+ H Urine WBC (Auto) 36 H Urine RBC (Auto) 23 H Urine Bacteria Rare Attending/Attestation - Attestation I have personally seen and examined this patient.: Yes I have fully participated in the care of the patient.: Yes I have reviewed all pertinent clinical information: Yes Notes (Text): 02/17/17 14:41 61 year old female with h/o GERD, h/o cervical ca s/p xrt, s/p colostomy c/o blood in ostomy as outpatient, anemia. 1. Blood in stool 2. Anemia 3. GERD Plan: -supportive measures for now -transfuse as necessary -monitor for bleeding -may consider inpatient egd/colon on monday depending on clinical course -otherwise if patient is to be discharged and is stable, patient can have procedures as outpatient
[2017-02-17] MEDS: Sodium Chloride 0.9% 1,000 ML IV SCH (09:06)
[2017-02-17 09:54] LABS: RBC URINE 23 /hpf (0-3); URINE BACTERIA RARE (<OCC); URINE BILIRUBIN NEGATIVE (NEGATIVE); URINE BLOOD 2+ (NEGATIVE); URINE COLOR Yellow (YELLOW); URINE GLUCOSE (UA) NORMAL (Normal); URINE KETONE NEGATIVE (NEGATIVE); URINE LEUKOCYTE ESTERASE 2+ Leu/uL (Negative); URINE PROTEIN NEGATIVE (NEGATIVE); URINE UROBILINOGEN NORMAL mg/dL (0.2-1.0); WBC URINE 36 /hpf (0-5)
--- NOTE | 2017-02-17 12:11 | CP.PCM.PN ---
Subjective - Date & Time of Evaluation Date of Evaluation: 02/17/17 Time of Evaluation: 12:00 - Subjective Subjective: Less pain, no fever, no dysuria, seen by infectious disease, suggested discharged after dose of antibiotically in the morning Objective - Vital Signs/Intake and Output Vital Signs (last 24 hours): Temp Pulse Resp BP Pulse Ox 98.4 F 66 20 147/84 100 02/17/17 08:01 02/17/17 08:01 02/17/17 08:01 02/17/17 08:01 02/17/17 08:01 Intake and Output: 02/17/17 02/17/17 06:59 18:59 Intake Total 1440 Output Total 850 Balance 590 - Medications Medications: Current Medications Acetaminophen (Tylenol 325mg Tab) 650 mg PO Q6 PRN PRN Reason: Fever >100.4 F Albuterol (Ventolin Hfa 90 Mcg/Actuation (8 G)) 2 puff INH RQ4 PRN PRN Reason: Shortness of Breath Apixaban (Eliquis) 5 mg PO BID [facility] Last Admin: 02/17/17 11:00 Dose: 5 mg Darunavir (Prezista) 800 mg PO DAILY [facility] Last Admin: 02/17/17 10:59 Dose: 800 mg Dicyclomine HCl (Bentyl) 20 mg PO TID [facility] Last Admin: 02/17/17 11:00 Dose: 20 mg Docusate Sodium (Colace) 100 mg PO BID [facility] Last Admin: 02/17/17 11:53 Dose: Not Given Dolutegravir Sodium (Tivicay) 50 mg PO DAILY [facility] Last Admin: 02/17/17 10:59 Dose: 50 mg Famciclovir (Famvir) 500 mg PO DAILY [facility] Last Admin: 02/17/17 10:58 Dose: 500 mg Hydromorphone HCl (Dilaudid) 2 mg IVP Q6H PRN PRN Reason: Pain, severe (8-10) Sodium Chloride (Sodium Chloride 0.9%) 1,000 mls @ 60 mls/hr IV .[id number] [facility] Last Admin: 02/16/17 17:27 Dose: Not Given Cefepime HCl (Maxipime Iv 1 Gm Premix) 1 gm in 50 mls @ 100 mls/hr IVPB Q12H [facility] Last Admin: 02/17/17 01:13 Dose: 100 mls/hr Ketoconazole (Nizoral) 0 gm TOP BID [facility] Last Admin: 02/17/17 11:00 Dose: Not Given Losartan Potassium (Cozaar) 100 mg PO DAILY [facility] Last Admin: 02/17/17 10:59 Dose: 100 mg Metoprolol Tartrate (Lopressor) 100 mg PO HS [facility] Last Admin: 02/16/17 21:28 Dose: 100 mg Montelukast Sodium (Singulair) 10 mg PO DAILY [facility] Last Admin: 02/17/17 10:59 Dose: 10 mg Ondansetron HCl (Zofran Inj) 4 mg IVP Q6 PRN PRN Reason: Nausea/Vomiting Last Admin: 02/14/17 14:38 Dose: 4 mg Oxybutynin Chloride (Ditropan Xl) 5 mg PO DAILY [facility] Last Admin: 02/17/17 10:59 Dose: 5 mg Ritonavir (Norvir) 100 mg PO DAILY [facility] Last Admin: 02/17/17 10:59 Dose: 100 mg Sucralfate (Carafate Tab) 1 gm PO BID [facility] Last Admin: 02/17/17 11:53 Dose: Not Given Temazepam (Restoril) 15 mg PO HS [facility] Last Admin: 02/16/17 21:28 Dose: 15 mg - Labs Labs: 02/16/17 09:48 02/16/17 09:48 PT 17.4 SECONDS (9.7-12.2) H 02/13/17 21:59 INR 1.5 02/13/17 21:59 APTT 20 SECONDS (21-34) L D 02/13/17 21:59 - Head Exam Head Exam: ATRAUMATIC - Eye Exam Eye Exam: EOMI - ENT Exam ENT Exam: Mucous Membranes Moist - Neck Exam Neck Exam: absent: Lymphadenopathy, Thyromegaly - Respiratory Exam Respiratory Exam: Clear to Ausculation Bilateral. absent: Rales - Cardiovascular Exam Cardiovascular Exam: REGULAR RHYTHM, Murmur - GI/Abdominal Exam GI & Abdominal Exam: Soft, Normal Bowel Sounds. absent: Tenderness, Organomegaly - Rectal Exam Rectal Exam: Deferred - Extremities Exam Extremities Exam: Normal Capillary Refill. absent: Calf Tenderness - Neurological Exam Neurological Exam: Alert, Oriented x3 - Psychiatric Exam Psychiatric exam: Normal Mood - Skin Skin Exam: Dry Assessment and Plan (1) Infection associated with nephrostomy catheter Status: Acute (2) Intractable pain Status: Acute (3) Malfunction of nephrostomy tube Status: Acute (4) Other mechanical complication of nephrostomy catheter, sequela Status: Acute (5) AIDS Status: Chronic (6) Cancer of cervix Status: Chronic
--- NOTE | 2017-02-17 23:42 | CP.PCM.PN ---
Subjective - Date & Time of Evaluation Date of Evaluation: 02/17/17 Time of Evaluation: 23:42 - Subjective Subjective: CHIEF COMPLAINTS TODAY : afebrile, FEELS BETTER seen by GI- and noted ROS. HEENT : N. Resp : No SOB wheezing, cough Cardio : No CP, PND orthopnea GI : +VE ABDOMINAL PAIN,AND FLANK PAIN improving [employer] : No headache , focal deficit. Musculoskel : N Ext. : Pedal pulses intact, no edema or calf pain Derm : N Psych : N. PE. Pt. is alert awake in no distress. V.S As noted in the chart Head ,ear nose,throat and eyes : Normal. Neck : Supple with normal carotids. Lungs: Clear air entry. Heart : S1 & S2 normal . . No murmur. S4 + Abd : Soft ,MILD TENDERNESS BOTH FLANKS AND LOWER ABDOMEN, with normal bowel sounds. B/L NT IN PLACE. URINE IN THE BAG CLOUDY. +VE COLOSTOMY.-STOOLS. Neuro : Moves all ext. with no localized deficit. Ext : No edema with intact pulses. Neg. calf tenderness Derm : No rashes or decubitus ulcer. Radiology/Labs . LABS REVIEWED. RENAL FUNCTIONS IMPROVING. URINE CULTURES +VE kLEBSIELLA OXYTOCA S- CEFEPIME Asssessment : -SEPSIS -COMPLICATED UTI -HX OF BILATERAL HYDRONEPHROSIS S/P BILATERAL NT IN PLACE. RECENTLY CHANGED . -CA OF THE CERVIX S/P ILEOSTOMY.. -ACQUIRED IMMUNE DEFICIENCY SYNDROME.. - PRERENAL AZOTEMIA. -HX OF DVT/S/P IVC FILTER/ON ELAQUIS. - Plan : on IV cefepime 1 g every 12 hourly x3days.02/16/17 patient cannot tolerate by mouth antibiotics. PATIENT CAN BE DISCHARGED MONDAY AFTER MORNING DOSE as per PMD F/U REPEAT URINE CULTURES. CONTINUE HAART THERAPY. ANALGESICS PER PMD. Objective - Vital Signs/Intake and Output Vital Signs (last 24 hours): Temp Pulse Resp BP Pulse Ox 98.1 F 76 20 137/77 98 02/17/17 15:00 02/17/17 21:00 02/17/17 15:00 02/17/17 21:00 02/17/17 15:00 Intake and Output: 02/17/17 02/18/17 18:59 06:59 Intake Total 730 Output Total 760 Balance -30 - Medications Medications: Current Medications Acetaminophen (Tylenol 325mg Tab) 650 mg PO Q6 PRN PRN Reason: Fever >100.4 F Albuterol (Ventolin Hfa 90 Mcg/Actuation (8 G)) 2 puff INH RQ4 PRN PRN Reason: Shortness of Breath Apixaban (Eliquis) 5 mg PO BID [facility] Last Admin: 02/17/17 17:24 Dose: 5 mg Darunavir (Prezista) 800 mg PO DAILY [facility] Last Admin: 02/17/17 10:59 Dose: 800 mg Dicyclomine HCl (Bentyl) 20 mg PO TID [facility] Last Admin: 02/17/17 17:24 Dose: Not Given Docusate Sodium (Colace) 100 mg PO BID [facility] Last Admin: 02/17/17 17:25 Dose: Not Given Dolutegravir Sodium (Tivicay) 50 mg PO DAILY [facility] Last Admin: 02/17/17 10:59 Dose: 50 mg Famciclovir (Famvir) 500 mg PO DAILY [facility] Last Admin: 02/17/17 10:58 Dose: 500 mg Hydromorphone HCl (Dilaudid) 2 mg IVP Q6H PRN PRN Reason: Pain, severe (8-10) Sodium Chloride (Sodium Chloride 0.9%) 1,000 mls @ 60 mls/hr IV .[id number] [facility] Last Admin: 02/16/17 17:27 Dose: Not Given Cefepime HCl (Maxipime Iv 1 Gm Premix) 1 gm in 50 mls @ 100 mls/hr IVPB Q12H [facility] Last Admin: 02/17/17 14:13 Dose: 100 mls/hr Ketoconazole (Nizoral) 0 gm TOP BID [facility] Last Admin: 02/17/17 17:26 Dose: Not Given Losartan Potassium (Cozaar) 100 mg PO DAILY [facility] Last Admin: 02/17/17 10:59 Dose: 100 mg Metoprolol Tartrate (Lopressor) 100 mg PO HS [facility] Last Admin: 02/17/17 21:10 Dose: 100 mg Montelukast Sodium (Singulair) 10 mg PO DAILY [facility] Last Admin: 02/17/17 10:59 Dose: 10 mg Ondansetron HCl (Zofran Inj) 4 mg IVP Q6 PRN PRN Reason: Nausea/Vomiting Last Admin: 02/14/17 14:38 Dose: 4 mg Oxybutynin Chloride (Ditropan Xl) 5 mg PO DAILY [facility] Last Admin: 02/17/17 10:59 Dose: 5 mg Ritonavir (Norvir) 100 mg PO DAILY [facility] Last Admin: 02/17/17 10:59 Dose: 100 mg Sucralfate (Carafate Tab) 1 gm PO BID [facility] Last Admin: 02/17/17 17:24 Dose: Not Given Temazepam (Restoril) 15 mg PO HS [facility] Last Admin: 02/17/17 21:11 Dose: Not Given - Labs Labs: 02/16/17 09:48 02/16/17 09:48 PT 17.4 SECONDS (9.7-12.2) H 02/13/17 21:59 INR 1.5 02/13/17 21:59 APTT 20 SECONDS (21-34) L D 02/13/17 21:59 Assessment and Plan (1) Sepsis Status: Acute (2) Fever Status: Acute (3) Complicated urinary tract infection Status: Acute (4) Infection associated with nephrostomy catheter Status: Acute (5) Cancer of cervix Status: Chronic (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
[2017-02-18] MEDS: Cefepime IV 1 gm in Dextrose 1 GM/50 ML BAG IVPB SCH (01:24)
[2017-02-18] MEDS: Sodium Chloride 0.9% 1,000 ML IV SCH (02:05)
[2017-02-18 09:19] VITALS: BP 150/83; PULSE 68; TEMP 98; O2SAT 97
--- NOTE | 2017-02-18 11:42 | CP.PCM.PN ---
Subjective - Date & Time of Evaluation Date of Evaluation: 02/18/17 Time of Evaluation: 11:41 - Subjective Subjective: PER DR. HAMILTON LATE AFTERNOON YESTERDAY, D/C PT TODAY. I DISCUSSED WITH DR. OLMSTEAD AND SHE CLEARED THE PT FOR D/C TODAY WITH NO ABX. PT STATES SHE HAS ALL HOME MEDS ALREADY AND NEEDS NO REFILLS. DIPTI BELLAMY MADE ARRANGEMENTS FOR B/L NEPHROSTOMY TUBE SITE DRESSINGS TO BE MONITORED AND CHANGED BY [facility] AT AM. THEY WILL F/U WITH PT MONDAY. NO FURTHER ORDERS. TO F/U WITH JUNO [facility] JOY WITHIN 2 WEEKS. Objective - Vital Signs/Intake and Output Vital Signs (last 24 hours): Temp Pulse Resp BP Pulse Ox 98 F 68 20 150/83 97 02/18/17 09:17 02/18/17 09:17 02/18/17 09:17 02/18/17 09:17 02/18/17 09:17 Intake and Output: 02/18/17 02/18/17 06:59 18:59 Intake Total 730 Output Total 760 Balance -30 - Medications Medications: Current Medications Acetaminophen (Tylenol 325mg Tab) 650 mg PO Q6 PRN PRN Reason: Fever >100.4 F Albuterol (Ventolin Hfa 90 Mcg/Actuation (8 G)) 2 puff INH RQ4 PRN PRN Reason: Shortness of Breath Apixaban (Eliquis) 5 mg PO BID [facility] Last Admin: 02/18/17 09:56 Dose: 5 mg Darunavir (Prezista) 800 mg PO DAILY [facility] Last Admin: 02/18/17 10:04 Dose: 800 mg Dicyclomine HCl (Bentyl) 20 mg PO TID [facility] Last Admin: 02/18/17 09:55 Dose: 20 mg Docusate Sodium (Colace) 100 mg PO BID [facility] Last Admin: 02/18/17 09:53 Dose: 100 mg Dolutegravir Sodium (Tivicay) 50 mg PO DAILY [facility] Last Admin: 02/18/17 09:56 Dose: 50 mg Famciclovir (Famvir) 500 mg PO DAILY [facility] Last Admin: 02/18/17 09:55 Dose: 500 mg Hydromorphone HCl (Dilaudid) 2 mg IVP Q6H PRN PRN Reason: Pain, severe (8-10) Sodium Chloride (Sodium Chloride 0.9%) 1,000 mls @ 60 mls/hr IV .[id number] [facility] Last Admin: 02/18/17 02:05 Dose: 60 mls/hr Cefepime HCl (Maxipime Iv 1 Gm Premix) 1 gm in 50 mls @ 100 mls/hr IVPB Q12H [facility] Last Admin: 02/18/17 01:24 Dose: 100 mls/hr Ketoconazole (Nizoral) 0 gm TOP BID [facility] Last Admin: 02/18/17 09:54 Dose: Not Given Losartan Potassium (Cozaar) 100 mg PO DAILY [facility] Last Admin: 02/18/17 09:53 Dose: 100 mg Metoprolol Tartrate (Lopressor) 100 mg PO HS [facility] Last Admin: 02/17/17 21:10 Dose: 100 mg Montelukast Sodium (Singulair) 10 mg PO DAILY [facility] Last Admin: 02/18/17 10:02 Dose: 10 mg Ondansetron HCl (Zofran Inj) 4 mg IVP Q6 PRN PRN Reason: Nausea/Vomiting Last Admin: 02/14/17 14:38 Dose: 4 mg Oxybutynin Chloride (Ditropan Xl) 5 mg PO DAILY [facility] Last Admin: 02/18/17 09:55 Dose: 5 mg Ritonavir (Norvir) 100 mg PO DAILY [facility] Last Admin: 02/18/17 09:56 Dose: 100 mg Sucralfate (Carafate Tab) 1 gm PO BID [facility] Last Admin: 02/18/17 09:53 Dose: 1 gm Temazepam (Restoril) 15 mg PO HS [facility] Last Admin: 02/17/17 21:11 Dose: Not Given - Labs Labs: 02/16/17 09:48 02/16/17 09:48 PT 17.4 SECONDS (9.7-12.2) H 02/13/17 21:59 INR 1.5 02/13/17 21:59 APTT 20 SECONDS (21-34) L D 02/13/17 21:59
--- NOTE | 2017-02-20 17:57 | CP.PCM.DIS ---
Provider - Provider Date of Admission: 02/13/17 21:56 Attending physician: Lamberto Hamilton MD Time Spent in preparation of Discharge (in minutes): 20 Diagnosis - Discharge Diagnosis (1) Infection associated with nephrostomy catheter Status: Acute (2) Intractable pain Status: Acute (3) Malfunction of nephrostomy tube Status: Acute (4) Other mechanical complication of nephrostomy catheter, sequela Status: Acute (5) AIDS Status: Chronic (6) Cancer of cervix Status: Chronic Hospital Course - Lab Results Lab Results: Micro Results 02/16/17 20:00 Urine,Random Urine Culture - Final Pseudomonas Aeruginosa 02/17/17 20:00 Urine Urine Culture - Final Pseudomonas Aeruginosa Most Recent Lab Values WBC 5.4 K/uL (4.8-10.8) D 02/16/17 09:48 RBC 3.41 Mil/uL (3.80-5.20) L 02/16/17 09:48 Hgb 8.7 g/dL (11.0-16.0) L 02/16/17 09:48 Hct 27.6 % (34.0-47.0) L 02/16/17 09:48 MCV 80.9 fL (81.0-99.0) L D 02/16/17 09:48 MCH 25.4 pg (27.0-31.0) L 02/16/17 09:48 MCHC 31.4 g/dL (33.0-37.0) L 02/16/17 09:48 RDW 17.7 % (11.5-14.5) H 02/16/17 09:48 Plt Count 171 K/uL (130-400) 02/16/17 09:48 MPV 10.8 fL (7.2-11.7) 02/16/17 09:48 Neut % (Auto) 58.8 % (50.0-75.0) 02/16/17 09:48 Lymph % (Auto) 28.2 % (20.0-40.0) 02/16/17 09:48 Sunflower % (Auto) 10.9 % (0.0-10.0) H 02/16/17 09:48 Eos % (Auto) 1.4 % (0.0-4.0) 02/16/17 09:48 Baso % (Auto) 0.7 % (0.0-2.0) 02/16/17 09:48 Neut # 3.2 K/uL (1.8-7.0) 02/16/17 09:48 Lymph # 1.5 K/uL (1.0-4.3) 02/16/17 09:48 Sunflower # 0.6 K/uL (0.0-0.8) 02/16/17 09:48 Eos # 0.1 K/uL (0.0-0.7) 02/16/17 09:48 Baso # 0.0 K/uL (0.0-0.2) 02/16/17 09:48 PT 17.4 SECONDS (9.7-12.2) H 02/13/17 21:59 INR 1.5 02/13/17 21:59 APTT 20 SECONDS (21-34) L D 02/13/17 21:59 pO2 27 mm/Hg (30-55) L 02/13/17 21:10 VBG pH 7.37 (7.32-7.43) 02/13/17 21:10 VBG pCO2 34 mmHg (40-60) L 02/13/17 21:10 VBG HCO3 19.8 mmol/L 02/13/17 21:10 VBG Total CO2 20.7 mmol/L (22-28) L 02/13/17 21:10 VBG O2 Sat (Calc) 59.3 % (40-65) 02/13/17 21:10 VBG Base Excess -4.8 mmol/L (0.0-2.0) L 02/13/17 21:10 VBG Potassium 3.3 mmol/L (3.6-5.2) L 02/13/17 21:10 Sodium 137.0 mmol/l (132-148) 02/13/17 21:10 Chloride 112.0 mmol/L (98-107) H 02/13/17 21:10 Glucose 120 mg/dl (65-105) H 02/13/17 21:10 Lactate 0.6 mmol/L (0.7-2.1) L 02/13/17 21:10 FiO2 21.0 % 02/13/17 21:10 Sodium 143 mmol/L (132-148) 02/16/17 09:48 Potassium 4.3 mmol/L (3.6-5.2) 02/16/17 09:48 Chloride 112 mmol/L (98-107) H 02/16/17 09:48 Carbon Dioxide 20 mmol/L (22-30) L 02/16/17 09:48 Anion Gap 15 (10-20) 02/16/17 09:48 BUN 16 mg/dL (7-17) 02/16/17 09:48 Creatinine 1.5 MG/DL (0.7-1.2) H 02/16/17 09:48 Est GFR ( Amer) 43 02/16/17 09:48 Est GFR (Non-Af Amer) 36 02/16/17 09:48 Random Glucose 88 mg/dL (65-105) 02/16/17 09:48 Calcium 8.2 mg/dl (8.6-10.4) L 02/16/17 09:48 Total Bilirubin 0.6 mg/dL (0.2-1.3) 02/16/17 09:48 Direct Bilirubin 0.6 mg/dL (0.0-0.4) H 02/16/17 09:48 AST 16 U/L (14-36) 02/16/17 09:48 ALT 28 U/L (9-52) 02/16/17 09:48 Alkaline Phosphatase 83 U/L (38-126) 02/16/17 09:48 Total Protein 6.7 g/dL (6.3-8.3) 02/16/17 09:48 Albumin 3.0 g/dL (3.5-5.0) L 02/16/17 09:48 Globulin 3.7 gm/dL (2.2-3.9) 02/16/17 09:48 Albumin/Globulin Ratio 0.8 (1.0-2.1) L 02/16/17 09:48 Lipase 63 U/L (23-300) 02/13/17 21:59 Venous Blood Potassium 3.3 mmol/L (3.6-5.2) L 02/13/17 21:10 Urine Color Yellow (YELLOW) 02/17/17 09:44 Urine Clarity Clear (Clear) 02/17/17 09:44 Urine pH 6.0 (5.0-8.0) 02/17/17 09:44 Ur Specific [place] 1.010 (1.003-1.030) 02/17/17 09:44 Urine Protein Negative mg/dL (NEGATIVE) 02/17/17 09:44 Urine Glucose (UA) Normal mg/dL (Normal) 02/17/17 09:44 Urine Ketones Negative mg/dL (NEGATIVE) 02/17/17 09:44 Urine Blood 2+ (NEGATIVE) H 02/17/17 09:44 Urine Nitrate Negative (NEGATIVE) 02/17/17 09:44 Urine Bilirubin Negative (NEGATIVE) 02/17/17 09:44 Urine Urobilinogen Normal mg/dL (0.2-1.0) 02/17/17 09:44 Ur Leukocyte Esterase 2+ Pete/uL (Negative) H 02/17/17 09:44 Urine WBC (Auto) 36 /hpf (0-5) H 02/17/17 09:44 Urine RBC (Auto) 23 /hpf (0-3) H 02/17/17 09:44 Ur Squamous Epith Cells 1 /hpf (0-5) 02/13/17 22:00 Urine Bacteria Rare (<OCC) 02/17/17 09:44 - Hospital Course Hospital Course: admitted with fever, infected nephrostomy tubes, received antibiotics with help of ID (HIV), improved f/u as out pt with ID, EGD colonoscopy as out pt seen by GI Discharge Exam - Head Exam Head Exam: ATRAUMATIC - Eye Exam Eye Exam: EOMI - ENT Exam ENT Exam: Mucous Membranes Moist - Neck Exam Neck exam: Full Rom - Respiratory Exam Respiratory Exam: Clear to PA & Lateral. absent: Rales - Cardiovascular Exam Cardiovascular Exam: REGULAR RHYTHM, Systolic Murmur - GI/Abdominal Exam GI & Abdominal Exam: Normal Bowel Sounds. absent: Organomegaly - Rectal Exam Rectal Exam: Deferred - Extremities Exam Extremities exam: normal capillary refill - Neurological Exam Neurological exam: Alert - Psychiatric Exam Psychiatric exam: Normal Mood - Skin Skin Exam: Dry Discharge Plan - Discharge Medications Prescriptions: Sucralfate [Carafate Tab] 1 gm PO BID #60 tab - Follow Up Plan Condition: FAIR Disposition: HOME/ ROUTINE Instructions: Urinary Tract Infection in Women (DC), Urinary Tract Infection in Men (DC), Sepsis (DC), Sepsis (GEN), Dysuria (GEN) Additional Instructions: FOLLOW UP WITH DR. HAMILTON OR YOUR PRIMARY DOCTOR IN THE OFFICE IN 2 [address]EEKS. FOLLOW UP WITH DR. SUMMERS IN THE OFFICE WITHIN 2 WEEKS. NEPHROSTOMY TUBE CARE PER DR. SUMMERS. FOLLOW UP WITH DR. BO IN THE OFFICE WITHIN 2 WEEKS---ENDOSCOPY TO BE DONE OUTPATIENT. YOU CAN SCHEDULE THIS DURING YOUR FOLLOW UP VISIT. CONTINUE ALL OF YOUR HOME MEDICATIONS USUAL. THE STOMACH DOCTOR RECOMMENDS FOR YOU TO CONTINUE THE STOMACH MEDICINE, CARAFATE , TWICE A DAY. THE PRESCRIPTION HAS BEEN SENT TO YOUR PHARMACY AND YOU CAN PICK IT UP TODAY. Referrals: Tiffanie Romeo MD [Staff Provider] - Cece Summers MD [Staff Provider] - Lamberto Hamilton MD [Staff Provider] - Jon Bo MD [Staff Provider] -
== END 2017-02-18 14:15 | disposition home or self-care (01) | DRG 569 ==
LOC: C.ER 20:03 → C.9E 21:56 → C.6T 23:02 → C.3T 02-15 20:00
PROVIDERS: ADMIT Internal Medicine Cardiovascular Disease; ATTEND Internal Medicine Cardiovascular Disease
DX: T83.512A Infection and inflammatory reaction due to nephrostomy catheter, initial encounter (principal); A41.9 Sepsis, unspecified organism; B20 Human immunodeficiency virus [HIV] disease; N99.528 Other complication of incontinent external stoma of urinary tract; N39.0 Urinary tract infection, site not specified; Z85.41 Personal history of malignant neoplasm of cervix uteri; Z82.49 Family history of ischemic heart disease and other diseases of the circulatory system; Z80.9 Family history of malignant neoplasm, unspecified; Z87.891 Personal history of nicotine dependence; F32.9 Major depressive disorder, single episode, unspecified

== ENCOUNTER 2017-02-27 06:42 | Day surgery (SDC) | payer MEDICAID ==
[2017-02-27 07:19] VITALS: BMI 26.5
[2017-02-27] MEDS ORDERED: Propofol 10 mg/ml Inj (20 ML) ONE (08:34)
[2017-02-27] MEDS ORDERED: Etomidate 20 mg/10ml Inj IV ONE (08:41)
[2017-02-27] MEDS ORDERED: Midazolam 2 MG/2 ML VIAL ONE (08:42)
[2017-02-27 09:18] VITALS: TEMP 96.9; O2SAT 100
[2017-02-27 09:46] VITALS: RESP 15
[2017-02-27 10:14] VITALS: BP 150/89; PULSE 93
== END 2017-02-27 10:13 | disposition home or self-care (01) ==
LOC: C.ENDO 06:42
PROVIDERS: ATTEND Internal Medicine
DX: K94.01 Colostomy hemorrhage (principal); K57.30 Diverticulosis of large intestine without perforation or abscess without bleeding; K22.70 Barrett's esophagus without dysplasia; K29.50 Unspecified chronic gastritis without bleeding; D64.9 Anemia, unspecified
CPT/HCPCS: 43239; 45378; 88305; 88312; 88313; 88342; J2001; J2250; J2704; J3010

== ENCOUNTER 2017-04-19 10:55 | Inpatient (IN) | payer MEDICAID ==
[2017-04-19 10:55] VITALS: BMI 26.5
[2017-04-19] MEDS ORDERED: Sodium Chloride 0.9% 1,000 ML IV ONE (11:38)
[2017-04-19 12:09] LABS: BASO % 0.5 % (0.0-2.0); EOS # 0.1 K/uL (0.0-0.7); HEMATOCRIT 32.3 % (34.0-47.0); LYMPH # 1.9 K/uL (1.0-4.3); MEAN CORPUSCULAR HEMOGLOBIN 25.1 pg (27.0-31.0); MEAN CORPUSCULAR HGB CONC 31.9 g/dL (33.0-37.0); MEAN PLATELET VOLUME 9.8 fL (7.2-11.7); MONO # 0.6 K/uL (0.0-0.8); MONO % 7.7 % (0.0-10.0); RED CELL DISTRIBUTION WIDTH 18.2 % (11.5-14.5); WHITE BLOOD COUNT 7.5 K/uL (4.8-10.8)
[2017-04-19 12:10] LABS: MEAN CELL VOLUME 78.7 fL (81.0-99.0)
[2017-04-19 12:14] LABS: INR 1.4
[2017-04-19 12:19] LABS: POTASSIUM 4.3 mmol/L (3.6-5.2)
[2017-04-19 12:21] LABS: ALB/GLOB RATIO 0.9 (1.0-2.1); BILIRUBIN,TOTAL 0.4 mg/dL (0.2-1.3); TOTAL PROTEIN 8.2 g/dL (6.3-8.3)
[2017-04-19 12:22] LABS: CALCIUM 9.1 mg/dl (8.6-10.4)
--- NOTE | 2017-04-19 13:02 | C.PDOC ---
History Of Present Illness 62 y/o female with Hx of Bilateral urethral obstruction, cervical cancer and HTN presents to ED sent by Dr. Vega for admission on IV antibiotics. Patient will have nephrostomy tube changed on Monday. Patient denies fever, chills, abdominal pain or any other complaints at this time. Time Seen by Provider: 04/19/17 11:22 Chief Complaint (Nursing): Female Genitourinary History Per: Patient History/Exam Limitations: no limitations Onset/Duration Of Symptoms: Days Current Symptoms Are (Timing): Still Present Past Medical History Reviewed: Historical Data, Nursing Documentation, Vital Signs Vital Signs: Last Vital Signs Temp 98.1 F 04/19/17 15:10 Pulse 73 04/19/17 15:10 Resp 18 04/19/17 15:10 BP 153/88 H 04/19/17 15:10 Pulse Ox 98 04/19/17 15:44 - Medical History PMH: Anemia, Anxiety, Arthritis, Asthma, CHF, COPD, Depression, Gastritis, HIV, HTN, Hypercholesterolemia, Hyperlipidemia, Kidney Stones, Malignancy (Cervical ( 2000)), Osteoporosis, Pancreatitis, Peripheral Edema, Chronic Kidney Disease Surgical History: Cholecystectomy, Endoscopy - [facility] Procedures CHANGE DRAINAGE DEVICE IN KIDNEY, EXTERNAL APPROACH (10/25/16) CYSTOSCOPY NEC (08/07/14) DILATION OF LEFT COMMON ILIAC VEIN, PERCUTANEOUS APPROACH (05/04/16) DILATION OF LEFT FEMORAL VEIN, PERCUTANEOUS APPROACH (05/04/16) FLUOROSCOPY OF BLADDER (09/25/16) INSERTION OF INTRALUM DEV INTO INF VENA CAVA, PERC APPROACH (05/04/16) INSERTION OF TOTALLY IMPLANTABLE VASC ACCESS DEVIC (10/02/03) INSPECTION OF BLADDER, ENDO (09/25/16) INTRAVENOUS PYELOGRAM (09/03/14) INTRODUCE OTH THROMBOLYTIC IN PERIPH VEIN, PERC (05/04/16) NEPHROSTOMY (06/26/14) PACKED CELL TRANSFUSION (11/20/14) PLAIN RADIOGRAPHY OF INFERIOR VENA CAVA USING OTHER CONTRAST (05/04/16) RADIOGRAPHY OF KIDNEY, URETER & BLADDER USING OTH CONTRAST (10/25/16) REMOV URETERAL DRAIN (09/26/14) REPLACE NEPHROSTOMY TUBE (10/31/14) RETROGRADE PYELOGRAM (01/15/15) URETERAL CATHETERIZATION (01/15/15) VAGINOSCOPY (05/30/14) VULVAR BIOPSY (02/07/14) Family History: States: No Known Family Hx - Social History Hx Tobacco Use: No Hx Alcohol Use: No Hx Substance Use: No - Immunization History Hx Tetanus Toxoid Vaccination: Yes (2011) Hx Influenza Vaccination: Yes (04/2016) Hx Pneumococcal Vaccination: Yes (2011) Review Of Systems Constitutional: Negative for: Fever, Chills Gastrointestinal: Negative for: Nausea, Vomiting, Abdominal Pain, Diarrhea Genitourinary: Negative for: Dysuria, Hematuria Musculoskeletal: Negative for: Back Pain Skin: Negative for: Rash Physical Exam - Physical Exam Appears: Non-toxic, No Acute Distress Skin: Normal Color, Warm, Dry, No Rash Head: Normacephalic Oral Mucosa: Moist Neck: Normal ROM, Supple Cardiovascular: Rhythm Regular Respiratory: Normal Breath Sounds, No Rales, No Rhonchi, No Wheezing Gastrointestinal/Abdominal: Soft, No Tenderness, No Guarding, No Rebound Neurological/Psych: Oriented x3 ED Course And Treatment - Laboratory Results Result Diagrams: 04/19/17 12:02 04/19/17 12:02 Lab Interpretation: No Acute Changes ECG: Interpreted By Me ECG Rhythm: Sinus Rhythm Rate From EC O2 Sat by Pulse Oximetry: 98 (RA) Pulse Ox Interpretation: Normal Progress Note: Treated with IVF NSS and rocephin 1 Gm IV. Case discussed and patient evaluated by Dr Vega who request admission for further evaluation Reassessment Condition: Unchanged - Physician Consult Information Physician Contacted: Lamberto Veag Outcome Of Conversation: admit Medical Decision Making Medical Decision Making: Plan: Labs Call out to Dr. Vega for what antibiotics he wants Disposition Discussed With Dr.: Lamberto Vega Doctor Will See Patient In The: Hospital - Disposition Disposition: HOSPITALIZED Disposition Time: 17:50 Condition: STABLE - POA Present On Arrival: None - Clinical Impression Clinical Impression: UTI (lower urinary tract infection), Infection associated with nephrostomy catheter - PA / ORACLE APPLICATIONS ANALYST / Resident Statement MD/DO has reviewed & agrees with the documentation as recorded. - Scribe Statement The provider has reviewed the documentation as recorded by the Cooperibmaggie Storm All medical record entries made by the Cooperibmaggie were at my direction and personally dictated by me. I have reviewed the chart and agree that the record accurately reflects my personal performance of the history, physical exam, medical decision making, and the department course for this patient. I have also personally directed, reviewed, and agree with the discharge instructions and disposition. Decision To Admit - Pt Status Changed To: Hospital Disposition Of: Inpatient - Admit Certification Admit to Inpatient:: After my assessment, the patient will require hospitalization for at least two midnights. This is because of the severity of symptoms shown, intensity of services needed, and/or the medical risk in this patient being treated as an outpatient. - InPatient: Physician Admission Certification: I certify that this patient requires 2 or more midnights of care for the following reason:: Bilateral ureterostomy Tubes. UTI - . Bed Request Type: Regular Admitting Physician: Lamberto Vega Patient Diagnosis: UTI (lower urinary tract infection), Infection associated with nephrostomy catheter
[2017-04-19] MEDS ORDERED: cefTRIAXone IV 1 gm in Dextros 50 ML IV ONE (13:43)
[2017-04-19] MEDS ORDERED: cefTRIAXone IV 1 gm in Dextros 50 ML IVPB ONE (14:28)
[2017-04-19] MEDS ORDERED: Oxycodone/Acetaminophen 5/325 mg Tab PO PRN (15:24)
[2017-04-19] MEDS ORDERED: Albuterol 0.083% Inhal Sol (2.5 mg/3 mL) UD INH PRN (15:24)
[2017-04-19] MEDS ORDERED: Albuterol HFA 90 mcg/actuation (8 g) INH PRN ×3 (15:24→16:15)
[2017-04-19] MEDS ORDERED: HYDROmorphone 1 mg/ml ISec IVP PRN (15:33)
--- NOTE | 2017-04-19 17:45 | CP.PCM.CON ---
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 Patient has had multiple hospitalizations at [facility] for complicated UTIs and for change of bilateral nephrostomy tubes every [address] [facility] 02/13/17. Patient now sent by Dr. Vega for admission for change of bilateral external nephrostomy tubes. PATIENT COMPLAINS OF DYSURIA ON VOIDING, DENIES ANY HEMATURIA. PATIENT DENIES FEVER OR CHILLS. PATIENT ALSO COMPLAINS OF GREENISH DISCHARGE ON EXIT SITE OF BILATERAL STENTS. Infectious disease consultation requested by PMD Dr. Vega for further evaluation for sepsis and fevers. . patient also has history of DVT, thrombectomy from femoral vein and presently on ELIQUIS. Patient is presently on TIVICAY. Norvir, Prezista HAART therapy and is very compliant with her medications. Her last viral load was undetectable PMHx: see HPI. Nephrostomy and colostomy were done due to damages from chemoradiation for cervical CA. Pt visited PMD for routine HIV follow up on 2015 and was told viral count undetectable. CD4 145 on 08/19/14 per record. PSHx: Cervical CA resection 2000, colostomy bag 2009. FMHx: both parents from [place]. Sister and brother had [place]. Social: former smoker, 5 cigarettes to 1 pack a day for 10 years, stopped 2011. Denied ETOH or drugs use. Lives alone, unemployeed. PMD: Dr. Rojas Nichole Review of Systems - Constitutional Constitutional: absent: Chills, Fever - EENT Eyes: absent: Change in Vision, Floaters Nose/Mouth/Throat: absent: Mouth Lesions - Cardiovascular Cardiovascular: absent: Chest Pain - Gastrointestinal Gastrointestinal: Abdominal Pain (LOWER ABDOMINAL DISCOMFORT.). absent: Nausea , Vomiting - Genitourinary Genitourinary: Dysuria, Pyuria, Freq UTI - Psychiatric Psychiatric: Depression - Hematologic/Lymphatic Hematologic: As Per HPI. absent: Lymphadenopathy Past Patient History - Infectious Disease Hx of Infectious Diseases: None - Past Medical History & Family History Past Medical History?: Yes - Past Social History Smoking Status: Never Smoked - CARDIAC Hx Congestive Heart Failure: Yes Hx Hypercholesterolemia: Yes Hx Hypertension: Yes Hx Peripheral Edema: Yes - PULMONARY Hx Asthma: Yes Hx Chronic Obstructive Pulmonary Disease (COPD): Yes - NEUROLOGICAL Hx Neurological Disorder: Yes Hx Syncope: Yes Other/Comment: HEADACHES - HEENT Hx HEENT Problems: Yes Hx Cataracts: Yes (BILATERAL) - RENAL Hx Chronic Kidney Disease: Yes Hx Kidney Stones: Yes - ENDOCRINE/METABOLIC Hx Endocrine Disorders: No - HEMATOLOGICAL/ONCOLOGICAL Hx Anemia: Yes Hx Human Immunodeficiency Virus (HIV): Yes - INTEGUMENTARY Hx Dermatological Problems: No - MUSCULOSKELETAL/RHEUMATOLOGICAL Hx Arthritis: Yes Hx Osteoporosis: Yes - GASTROINTESTINAL Hx Gastritis: Yes Hx Pancreatitis: Yes - GENITOURINARY/GYNECOLOGICAL Hx Genitourinary Disorders: Yes Hx Cervical Cancer: Yes Hx Hematuria: Yes Hx Reproductive Disorders: Yes (S/P HYSTERECTOMY) Hx Urinary Tract Infection: Yes Other/Comment: NEPHROSTOMY TUBES - PSYCHIATRIC Hx Anxiety: Yes Hx Depression: Yes Hx Substance Use: No - SURGICAL HISTORY Hx Cholecystectomy: Yes - ANESTHESIA Hx Anesthesia: Yes Hx Anesthesia Reactions: No Hx Malignant Hyperthermia: No Meds Allergies/Adverse Reactions: Allergies Allergy/AdvReac Type Severity Reaction Status Date / Time sulfamethoxazole Allergy Intermediate ITCHING Verified 04/19/17 11:12 [From Bactrim] aloe vera Allergy ITCHING Verified 04/19/17 11:12 Sulfa (Sulfonamide Allergy ITCHING Verified 04/19/17 11:12 Antibiotics) - Medications Medications: Current Medications Acetaminophen (Tylenol 325mg Tab) 650 mg PO Q6 PRN PRN Reason: Fever >100.4 F Albuterol (Ventolin Hfa 90 Mcg/Actuation (8 G)) 2 puff INH RQ4 PRN PRN Reason: Shortness of Breath Albuterol Sulfate (Albuterol 0.083% Inhal Kristina (2.5 Mg/3 Ml) Ud) 2.5 mg INH RQ4 PRN PRN Reason: Cough and congestion Apixaban (Eliquis) 5 mg PO BID STEVEN Darunavir (Prezista) 800 mg PO DAILY STEVEN Dolutegravir Sodium (Tivicay) 50 mg PO DAILY STEVEN Famciclovir (Famvir) 500 mg PO DAILY STEVEN Hydromorphone HCl (Dilaudid) 1 mg IVP Q6H PRN PRN Reason: Pain, severe (8-10) Sodium Chloride (Sodium Chloride 0.9%) 1,000 mls @ 100 mls/hr IV .Q10H [facility] Ketoconazole (Nizoral) 0 gm TOP BID [facility] Losartan Potassium (Cozaar) 100 mg PO DAILY [facility] Metoprolol Tartrate (Lopressor) 100 mg PO HS [facility] Montelukast Sodium (Singulair) 10 mg PO DAILY [facility] Ondansetron HCl (Zofran Inj) 4 mg IVP Q6 PRN PRN Reason: Nausea/Vomiting Oxybutynin Chloride (Ditropan Xl) 5 mg PO DAILY [facility] Oxycodone/Acetaminophen (Percocet 5/325 Mg Tab) 1 tab PO Q6H PRN PRN Reason: Pain, severe (8-10) Stop: 04/22/17 15:25 Pantoprazole Sodium (Protonix Ec Tab) 40 mg PO DAILY [facility] Ritonavir (Norvir) 100 mg PO DAILY [facility] Sucralfate (Carafate Tab) 1 gm PO BID STEVEN Temazepam (Restoril) 15 mg PO HS [facility] Physical Exam - Constitutional Appears: No Acute Distress - Head Exam Head Exam: NORMAL INSPECTION - Eye Exam Eye Exam: EOMI, PERRL - ENT Exam ENT Exam: Normal Oropharynx - Neck Exam Neck exam: Positive for: Normal Inspection - Respiratory Exam Respiratory Exam: Clear to Auscultation Bilateral, NORMAL BREATHING PATTERN - Cardiovascular Exam Cardiovascular Exam: REGULAR RHYTHM, +S1, +S2 - GI/Abdominal Exam GI & Abdominal Exam: Normal Bowel Sounds, Soft, Tenderness (SUPRAPUBIC TENDERNESS.) - Extremities Exam Extremities exam: Positive for: pedal pulses present. Negative for: calf tenderness, pedal edema - Neurological Exam Neurological exam: Alert, CN II-XII Intact, Oriented x3, Reflexes Normal - Skin Skin Exam: Dry, Normal Color, Warm Results - Vital Signs Recent Vital Signs: Last Vital Signs Temp 98 F 04/19/17 16:12 Pulse 78 04/19/17 16:12 Resp 18 04/19/17 16:12 BP 158/83 H 04/19/17 16:12 Pulse Ox 99 04/19/17 16:12 - Labs Result Diagrams: 04/19/17 12:02 04/19/17 12:02 Labs: Laboratory Results - last 24 hr 04/19/17 04/19/17 04/19/17 12:02 12:02 12:02 WBC 7.5 RBC 4.10 Hgb 10.3 L Hct 32.3 L MCV 78.7 L D MCH 25.1 L MCHC 31.9 L RDW 18.2 H Plt Count 182 MPV 9.8 Neut % (Auto) 65.8 Lymph % (Auto) 25.0 [place] % (Auto) 7.7 Eos % (Auto) 1.0 Baso % (Auto) 0.5 Neut # 5.0 Lymph # 1.9 [place] # 0.6 Eos # 0.1 Baso # 0.0 PT 16.0 H INR 1.4 Sodium 135 Potassium 4.3 Chloride 103 Carbon Dioxide 23 Anion Gap 13 BUN 18 H Creatinine 1.3 H Est GFR ( Amer) 51 Est GFR (Non-Af Amer) 42 Random Glucose 90 Calcium 9.1 Total Bilirubin 0.4 AST 19 ALT 26 Alkaline Phosphatase 65 Total Protein 8.2 Albumin 3.9 Globulin 4.3 H Albumin/Globulin Ratio 0.9 L Assessment & Plan (1) Complicated urinary tract infection Assessment and Plan: LAST URINE CULTURE 02/17/17 +VE PSEUDOMONAS AERUGINOSA SENSITIVE TO IMIPENEM. PANCULTURES ua URINE CULTURES. *pRIMAXIN 500 MG iv PIGGYBACK EVERY 8 HOURLY. 04/19/17. pATIENT GOT ONE DOSE OF CEFTRIAXONE IN THE ER. AND iv AMIKACIN 500 MG iv PIGGYBACK ONE DOSE TONIGHT. fOLLOW-UP CULTURES TO JUST ANTIBIOTICS. Status: Acute (2) Infection associated with nephrostomy catheter Status: Acute (3) Hydroureteronephrosis Assessment and Plan: PATIENT HAS BILATERAL URETERAL STENTS. tHERE IS SOME GREENISH DISCHARGE AT THE SITE RIGHT NEPHROSTOMY TUBE. wILL FOLLOW UP CULTURES AND ADJUST ANTIBIOTICS. Status: Acute (4) Cancer of cervix Status: Chronic (5) Colostomy in place Status: Chronic (6) Deep venous thrombosis of lower extremity Assessment and Plan: on ELIQUIS PER PMD. Status: Chronic
[2017-04-19] MEDS ORDERED: Amikacin Sulfate 500 MG in Sodium Chloride 0.9% 250 ML IVPB ONE (17:56)
[2017-04-19] MEDS ORDERED: Imipenem/Cilastatin 500 MG in Dextrose 5% In Water 100 ML IVPB SCH (18:00)
[2017-04-19] MEDS ORDERED: Amikacin 500 MG in Dextrose 5% In Water 100 ML IVPB SCH (18:00)
[2017-04-19] MEDS: Sodium Chloride 0.9% 1,000 ML IV SCH (18:29)
--- NOTE | 2017-04-19 19:11 | CP.PCM.HP ---
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 Patient states she has chronic microcytic anemia and Gastritis managed by her Installation Drafter, Dr. Wong for which she takes omeprazole. She received Intravenous Iron and blood transfusions, last given 2013. she is now with recurent urine infection, had antibiotics as out pt, also an admission for DVT, thrombectomy from femoral vein, then eliquis. referred by "Dr Knutson"for admission , IV antibiotics and exchange nephrostomy tubes Present on Admission - Present on Admission Any Indicators Present on Admission: No Review of Systems - Constitutional Constitutional: Anorexia, Weakness - EENT Eyes: absent: Discharge Ears: absent: Ear Discharge, Dizziness Nose/Mouth/Throat: absent: Epistaxis - Cardiovascular Cardiovascular: absent: Acrocyanosis, Chest Pain, Diaphoresis, Palpitations, Syncope - Respiratory Respiratory: absent: Cough, Dyspnea, Hemoptysis - Gastrointestinal Gastrointestinal: absent: Abdominal Pain, Hematochezia, Vomiting - Genitourinary Genitourinary: Change in Urinary Stream - Reproductive: Female Reproductive:Female: Post Menopausal Past Patient History - Infectious Disease Hx of Infectious Diseases: None - Past Medical History & Family History Past Medical History?: Yes - Past Social History Smoking Status: Never Smoked - CARDIAC Hx Congestive Heart Failure: Yes Hx Hypercholesterolemia: Yes Hx Hypertension: Yes Hx Peripheral Edema: Yes - PULMONARY Hx Asthma: Yes Hx Chronic Obstructive Pulmonary Disease (COPD): Yes - NEUROLOGICAL Hx Neurological Disorder: Yes Hx Syncope: Yes Other/Comment: HEADACHES - HEENT Hx HEENT Problems: Yes Hx Cataracts: Yes (BILATERAL) - RENAL Hx Chronic Kidney Disease: Yes Hx Kidney Stones: Yes - ENDOCRINE/METABOLIC Hx Endocrine Disorders: No - HEMATOLOGICAL/ONCOLOGICAL Hx Anemia: Yes Hx Human Immunodeficiency Virus (HIV): Yes - INTEGUMENTARY Hx Dermatological Problems: No - MUSCULOSKELETAL/RHEUMATOLOGICAL Hx Arthritis: Yes Hx Osteoporosis: Yes - GASTROINTESTINAL Hx Gastritis: Yes Hx Pancreatitis: Yes - GENITOURINARY/GYNECOLOGICAL Hx Genitourinary Disorders: Yes Hx Cervical Cancer: Yes Hx Hematuria: Yes Hx Reproductive Disorders: Yes (S/P HYSTERECTOMY) Hx Urinary Tract Infection: Yes Other/Comment: NEPHROSTOMY TUBES - PSYCHIATRIC Hx Anxiety: Yes Hx Depression: Yes Hx Substance Use: No - SURGICAL HISTORY Hx Cholecystectomy: Yes - ANESTHESIA Hx Anesthesia: Yes Hx Anesthesia Reactions: No Hx Malignant Hyperthermia: No Meds Allergies/Adverse Reactions: Allergies Allergy/AdvReac Type Severity Reaction Status Date / Time sulfamethoxazole Allergy Intermediate ITCHING Verified 04/19/17 11:12 [From Bactrim] aloe vera Allergy ITCHING Verified 04/19/17 11:12 Sulfa (Sulfonamide Allergy ITCHING Verified 04/19/17 11:12 Antibiotics) Physical Exam - Constitutional Appears: Older Than Stated Age - Head Exam Head Exam: ATRAUMATIC - Eye Exam Eye Exam: EOMI - ENT Exam ENT Exam: Mucous Membranes Moist - Neck Exam Neck exam: Negative for: Lymphadenopathy, Thyromegaly - Respiratory Exam Respiratory Exam: Clear to Auscultation Bilateral. absent: Rales, Wheezes - Cardiovascular Exam Cardiovascular Exam: REGULAR RHYTHM, Systolic Murmur - GI/Abdominal Exam GI & Abdominal Exam: Normal Bowel Sounds. absent: Organomegaly - Rectal Exam Rectal Exam: Deferred - Extremities Exam Extremities exam: Positive for: normal capillary refill. Negative for: calf tenderness - Neurological Exam Neurological exam: Alert, Oriented x3 - Psychiatric Exam Psychiatric exam: Normal Mood - Skin Skin Exam: Dry Results - Vital Signs Recent Vital Signs: Last Vital Signs Temp 98 F 04/19/17 16:12 Pulse 78 04/19/17 16:12 Resp 18 04/19/17 16:12 BP 158/83 H 04/19/17 16:12 Pulse Ox 99 04/19/17 16:12 - Labs Result Diagrams: 04/19/17 12:02 04/19/17 12:02 Labs: Laboratory Results - last 24 hr 04/19/17 04/19/17 04/19/17 12:02 12:02 12:02 WBC 7.5 RBC 4.10 Hgb 10.3 L Hct 32.3 L MCV 78.7 L D MCH 25.1 L MCHC 31.9 L RDW 18.2 H Plt Count 182 MPV 9.8 Neut % (Auto) 65.8 Lymph % (Auto) 25.0 [place] % (Auto) 7.7 Eos % (Auto) 1.0 Baso % (Auto) 0.5 Neut # 5.0 Lymph # 1.9 [place] # 0.6 Eos # 0.1 Baso # 0.0 PT 16.0 H INR 1.4 Sodium 135 Potassium 4.3 Chloride 103 Carbon Dioxide 23 Anion Gap 13 BUN 18 H Creatinine 1.3 H Est GFR ( Amer) 51 Est GFR (Non-Af Amer) 42 Random Glucose 90 Calcium 9.1 Total Bilirubin 0.4 AST 19 ALT 26 Alkaline Phosphatase 65 Total Protein 8.2 Albumin 3.9 Globulin 4.3 H Albumin/Globulin Ratio 0.9 L Assessment & Plan (1) Infection associated with nephrostomy catheter Status: Acute (2) UTI (lower urinary tract infection) Status: Acute (3) PERFECTO (acute kidney injury) Status: Acute Priority: High (4) Asthma exacerbation, mild Status: Acute (5) Deep venous thrombosis of lower extremity Status: Chronic (6) Hydronephrosis Status: Chronic (7) AIDS Status: Chronic Decision To Admit - Pt Status Changed To: Hospital Disposition Of: Inpatient - Admit Certification Admit to Inpatient:: After my assessment, the patient will require hospitalization for at least two midnights. This is because of the severity of symptoms shown, intensity of services needed, and/or the medical risk in this patient being treated as an outpatient. - InPatient: Physician Admission Certification:: yes - . Bed Request Type: Regular
[2017-04-19 19:59] LABS: RBC URINE 1089 /hpf (0-3); URINE BILIRUBIN NEGATIVE (NEGATIVE); URINE BLOOD 2+ (NEGATIVE); URINE COLOR Yellow (YELLOW); URINE GLUCOSE (UA) NORMAL (Normal); URINE KETONE NEGATIVE (NEGATIVE); URINE LEUKOCYTE ESTERASE 2+ Leu/uL (Negative); URINE PROTEIN 2+ mg/dL (NEGATIVE); URINE UROBILINOGEN NORMAL mg/dL (0.2-1.0); WBC CLUMPS FEW /hpf; WBC URINE 6519 /hpf (0-5)
[2017-04-20] MEDS ORDERED: Albuterol 0.083% Inhal Sol (2.5 mg/3 mL) UD INH PRN (08:00)
[2017-04-20] MEDS: Sodium Chloride 0.9% 1,000 ML IV SCH ×2 (08:12→21:59)
[2017-04-20] MEDS: Pantoprazole 40 mg EC Tab PO SCH (09:55)
--- NOTE | 2017-04-20 13:34 | CARD ---
APPROVED REPORT EKG Measurement Heart [id number] <Conclusion> Normal sinus rhythm Normal ECG
[2017-04-20] MEDS ORDERED: Oxycodone/Acetaminophen 5/325 mg Tab PO PRN (16:00)
--- NOTE | 2017-04-20 20:10 | CP.PCM.PN ---
Subjective - Date & Time of Evaluation Date of Evaluation: 04/20/17 Time of Evaluation: 16:00 - Subjective Subjective: feels beter for cath change in am Objective - Vital Signs/Intake and Output Vital Signs (last 24 hours): Temp Pulse Resp BP Pulse Ox 98.1 F 85 18 156/85 H 97 04/20/17 15:39 04/20/17 15:39 04/20/17 15:39 04/20/17 15:39 04/20/17 15:39 - Medications Medications: Current Medications Acetaminophen (Tylenol 325mg Tab) 650 mg PO Q6 PRN PRN Reason: Fever >100.4 F Albuterol (Ventolin Hfa 90 Mcg/Actuation (8 G)) 2 puff INH RQ4 PRN PRN Reason: Shortness of Breath Albuterol Sulfate (Albuterol 0.083% Inhal Kristina (2.5 Mg/3 Ml) Ud) 2.5 mg INH RQ4 PRN PRN Reason: Cough and congestion Apixaban (Eliquis) 5 mg PO BID [facility] Last Admin: 04/20/17 19:24 Dose: 5 mg Darunavir (Prezista) 800 mg PO DAILY [facility] Last Admin: 04/20/17 09:55 Dose: 800 mg Dolutegravir Sodium (Tivicay) 50 mg PO DAILY [facility] Last Admin: 04/20/17 09:55 Dose: 50 mg Famciclovir (Famvir) 500 mg PO DAILY [facility] Last Admin: 04/20/17 09:55 Dose: 500 mg Hydromorphone HCl (Dilaudid) 1 mg IVP Q6H PRN PRN Reason: Pain, severe (8-10) Sodium Chloride (Sodium Chloride 0.9%) 1,000 mls @ 100 mls/hr IV .Q10H [facility] Last Admin: 04/20/17 08:12 Dose: 100 mls/hr Imipenem/Cilastatin Sodium 500 (mg/ Sodium Chloride) 100 mls @ 100 mls/hr IVPB Q8H [facility] Last Admin: 04/20/17 17:05 Dose: 100 mls/hr Ketoconazole (Nizoral) 0 gm TOP BID [facility] Last Admin: 04/19/17 18:34 Dose: Not Given Losartan Potassium (Cozaar) 100 mg PO DAILY [facility] Last Admin: 04/20/17 09:55 Dose: 100 mg Metoprolol Tartrate (Lopressor) 100 mg PO HS [facility] Last Admin: 04/19/17 21:36 Dose: 100 mg Montelukast Sodium (Singulair) 10 mg PO DAILY [facility] Last Admin: 04/20/17 09:55 Dose: 10 mg Ondansetron HCl (Zofran Inj) 4 mg IVP Q6 PRN PRN Reason: Nausea/Vomiting Oxybutynin Chloride (Ditropan Xl) 5 mg PO DAILY [facility] Last Admin: 04/20/17 09:55 Dose: 5 mg Oxycodone/Acetaminophen (Percocet 5/325 Mg Tab) 1 tab PO Q6H PRN PRN Reason: Pain, moderate (4-7) Stop: 04/22/17 15:25 Pantoprazole Sodium (Protonix Ec Tab) 40 mg PO DAILY [facility] Last Admin: 04/20/17 09:55 Dose: 40 mg Ritonavir (Norvir) 100 mg PO DAILY [facility] Last Admin: 04/20/17 09:55 Dose: 100 mg Sucralfate (Carafate Tab) 1 gm PO BID [facility] Last Admin: 04/20/17 19:22 Dose: Not Given Temazepam (Restoril) 15 mg PO HS [facility] Last Admin: 04/19/17 21:36 Dose: 15 mg - Labs Labs: 04/19/17 12:02 04/19/17 12:02 PT 16.0 SECONDS (9.7-12.2) H 04/19/17 12:02 INR 1.4 04/19/17 12:02 - Constitutional Appears: Non-toxic - Head Exam Head Exam: ATRAUMATIC - Eye Exam Eye Exam: EOMI - ENT Exam ENT Exam: Mucous Membranes Moist - Neck Exam Neck Exam: absent: Lymphadenopathy, Thyromegaly - Respiratory Exam Respiratory Exam: Clear to Ausculation Bilateral. absent: Rales - Cardiovascular Exam Cardiovascular Exam: REGULAR RHYTHM. absent: Murmur - GI/Abdominal Exam GI & Abdominal Exam: Normal Bowel Sounds. absent: Organomegaly - Rectal Exam Rectal Exam: Deferred - Extremities Exam Extremities Exam: Normal Capillary Refill. absent: Calf Tenderness - Neurological Exam Neurological Exam: Alert, Oriented x3 - Psychiatric Exam Psychiatric exam: Normal Mood - Skin Skin Exam: Dry Assessment and Plan (1) Infection associated with nephrostomy catheter Status: Acute (2) UTI (lower urinary tract infection) Status: Acute (3) PERFECTO (acute kidney injury) Status: Acute (4) Asthma exacerbation, mild Status: Acute (5) Deep venous thrombosis of lower extremity Status: Chronic (6) Hydronephrosis Status: Chronic (7) AIDS Status: Chronic
--- NOTE | 2017-04-20 23:38 | CP.PCM.PN ---
Subjective - Date & Time of Evaluation Date of Evaluation: 04/20/17 Time of Evaluation: 23:38 - Subjective Subjective: CHIEF COMPLAINTS TODAY : afebrile, FEELS BETTER TODAY TOLERATING IV ABX. PT FOR CHANGE OF URETERAL STENTS IN AM ROS. HEENT : N. Resp : No SOB wheezing, cough Cardio : No CP, PND orthopnea GI : +VE ABDOMINAL PAIN,AND FLANK PAIN improving POWDER COMPOUNDER : No headache , focal deficit. Musculoskel : N Ext. : Pedal pulses intact, no edema or calf pain Derm : N Psych : N. PE. Pt. is alert awake in no distress. V.S As noted in the chart Head ,ear nose,throat and eyes : Normal. Neck : Supple with normal carotids. Lungs: Clear air entry. Heart : S1 & S2 normal . . No murmur. S4 + Abd : Soft ,MILD TENDERNESS BOTH FLANKS AND LOWER ABDOMEN, with normal bowel sounds. B/L NT IN PLACE. URINE CLEARING. +VE COLOSTOMY.-STOOLS. Neuro : Moves all ext. with no localized deficit. Ext : No edema with intact pulses. Neg. calf tenderness Derm : No rashes or decubitus ulcer. Radiology/Labs . LABS REVIEWED. urine cultures -ve growth to date .Blood cultures negative growth to date. Asssessment : -COMPLICATED UTI -HX OF BILATERAL HYDRONEPHROSIS S/P BILATERAL NT IN PLACE. RECENTLY CHANGED . -CA OF THE CERVIX S/P ILEOSTOMY.. -ACQUIRED IMMUNE DEFICIENCY SYNDROME.. -HX OF DVT/S/P IVC FILTER/ON ELAQUIS. - Plan : patient for change of nephrostomy tubes in a.m. as per DR SUMMERS. CONTINUE iv pRIMAXIN 500 EVERY 8 HOURLY FOR NOW AND 2 DOSES POST- OPERATIVELY IF CULTURES REMAIN NEGATIVE. PER ATTENDING. Objective - Vital Signs/Intake and Output Vital Signs (last 24 hours): Temp Pulse Resp BP Pulse Ox 98.1 F 85 18 156/85 H 97 04/20/17 15:39 04/20/17 15:39 04/20/17 15:39 04/20/17 15:39 04/20/17 15:39 - Medications Medications: Current Medications Acetaminophen (Tylenol 325mg Tab) 650 mg PO Q6 PRN PRN Reason: Fever >100.4 F Albuterol (Ventolin Hfa 90 Mcg/Actuation (8 G)) 2 puff INH RQ4 PRN PRN Reason: Shortness of Breath Albuterol Sulfate (Albuterol 0.083% Inhal Kristina (2.5 Mg/3 Ml) Ud) 2.5 mg INH RQ4 PRN PRN Reason: Cough and congestion Apixaban (Eliquis) 5 mg PO BID [facility] Last Admin: 04/20/17 19:24 Dose: 5 mg Darunavir (Prezista) 800 mg PO DAILY [facility] Last Admin: 04/20/17 09:55 Dose: 800 mg Dolutegravir Sodium (Tivicay) 50 mg PO DAILY [facility] Last Admin: 04/20/17 09:55 Dose: 50 mg Famciclovir (Famvir) 500 mg PO DAILY [facility] Last Admin: 04/20/17 09:55 Dose: 500 mg Hydromorphone HCl (Dilaudid) 1 mg IVP Q6H PRN PRN Reason: Pain, severe (8-10) Sodium Chloride (Sodium Chloride 0.9%) 1,000 mls @ 100 mls/hr IV .Q10H [facility] Last Admin: 04/20/17 21:59 Dose: 100 mls/hr Imipenem/Cilastatin Sodium 500 (mg/ Sodium Chloride) 100 mls @ 100 mls/hr IVPB Q8H [facility] Last Admin: 04/20/17 17:05 Dose: 100 mls/hr Ketoconazole (Nizoral) 0 gm TOP BID [facility] Last Admin: 04/20/17 18:00 Dose: Not Given Losartan Potassium (Cozaar) 100 mg PO DAILY [facility] Last Admin: 04/20/17 09:55 Dose: 100 mg Metoprolol Tartrate (Lopressor) 100 mg PO HS [facility] Last Admin: 04/20/17 21:18 Dose: 100 mg Montelukast Sodium (Singulair) 10 mg PO DAILY [facility] Last Admin: 04/20/17 09:55 Dose: 10 mg Ondansetron HCl (Zofran Inj) 4 mg IVP Q6 PRN PRN Reason: Nausea/Vomiting Oxybutynin Chloride (Ditropan Xl) 5 mg PO DAILY [facility] Last Admin: 04/20/17 09:55 Dose: 5 mg Oxycodone/Acetaminophen (Percocet 5/325 Mg Tab) 1 tab PO Q6H PRN PRN Reason: Pain, moderate (4-7) Stop: 04/22/17 15:25 Pantoprazole Sodium (Protonix Ec Tab) 40 mg PO DAILY [facility] Last Admin: 04/20/17 09:55 Dose: 40 mg Ritonavir (Norvir) 100 mg PO DAILY [facility] Last Admin: 04/20/17 09:55 Dose: 100 mg Sucralfate (Carafate Tab) 1 gm PO BID [facility] Last Admin: 04/20/17 19:22 Dose: Not Given Temazepam (Restoril) 15 mg PO HS [facility] Last Admin: 04/20/17 22:00 Dose: 15 mg - Labs Labs: 04/19/17 12:02 04/19/17 12:02 PT 16.0 SECONDS (9.7-12.2) H 04/19/17 12:02 INR 1.4 04/19/17 12:02 Assessment and Plan (1) Complicated urinary tract infection Status: Acute (2) Infection associated with nephrostomy catheter Status: Acute (3) Hydroureteronephrosis Status: Acute (4) Cancer of cervix Status: Chronic (5) Colostomy in place Status: Chronic (6) Deep venous thrombosis of lower extremity Status: Chronic
[2017-04-21 00:16] VITALS: RESP 20
[2017-04-21] MEDS ORDERED: Influenza Vaccine 60 mcg/0.5 mL SYR (4YR UP) IM ONE ×3 (10:00→23:40)
[2017-04-21] MEDS ORDERED: Lidocaine 2% Inj (20ml) ONE (11:05)
[2017-04-21] MEDS ORDERED: Propofol 10 mg/ml Inj (20 ML) ONE (11:05)
[2017-04-21] MEDS ORDERED: Midazolam 2 MG/2 ML VIAL ONE (11:06)
[2017-04-21] MEDS: Pantoprazole 40 mg EC Tab PO SCH (11:10)
--- NOTE | 2017-04-21 12:00 | PCM.SURG1 ---
Surgeon's Initial Post Op Note - Surgeon's Notes Surgeon: Benjie Brannon MD Audit Partner: NONE Type of Anesthesia: IV Sedation Pre-Operative Diagnosis: Ureteral obstruction Operative Findings: Nephrostogram showed distal right and left ureteral obstruction. Post-Operative Diagnosis: Ureteral obstruction Operation Performed: Right and left perc. nephrostomy tube change. Antegrade nephrostogram. Specimen/Specimens Removed: none Estimated Blood Loss: EBL {In ML}: 0 Blood Products Given: N/A Drains Used: No Drains Post-Op Condition: Fair Date of Surgery/Procedure: 04/21/17 Time of Surgery/Procedure: 11:55
[2017-04-21 16:09] VITALS: BP 151/81; PULSE 90; TEMP 98; O2SAT 98
--- NOTE | 2017-04-21 16:15 | CP.PCM.PN ---
Subjective - Date & Time of Evaluation Date of Evaluation: 04/21/17 Time of Evaluation: 16:04 - Subjective Subjective: PT SEEN AND EXAMINED TODAY, RESPIRATION EASY AND UNLABORED. NAD Objective - Vital Signs/Intake and Output Vital Signs (last 24 hours): Temp Pulse Resp BP Pulse Ox 97.8 F 76 20 119/75 97 04/20/17 23:40 04/20/17 23:40 04/20/17 23:40 04/20/17 23:40 04/20/17 23:40 Intake and Output: 04/21/17 04/21/17 06:59 18:59 Intake Total 2100 Output Total 1950 Balance 150 - Medications Medications: Current Medications Acetaminophen (Tylenol 325mg Tab) 650 mg PO Q6 PRN PRN Reason: Fever >100.4 F Albuterol (Ventolin Hfa 90 Mcg/Actuation (8 G)) 2 puff INH RQ4 PRN PRN Reason: Shortness of Breath Albuterol Sulfate (Albuterol 0.083% Inhal Kristina (2.5 Mg/3 Ml) Ud) 2.5 mg INH RQ4 PRN PRN Reason: Cough and congestion Apixaban (Eliquis) 5 mg PO BID [facility] Last Admin: 04/21/17 11:06 Dose: Not Given Darunavir (Prezista) 800 mg PO DAILY [facility] Last Admin: 04/21/17 11:07 Dose: Not Given Dolutegravir Sodium (Tivicay) 50 mg PO DAILY [facility] Last Admin: 04/21/17 11:11 Dose: Not Given Famciclovir (Famvir) 500 mg PO DAILY [facility] Last Admin: 04/21/17 11:06 Dose: Not Given Hydromorphone HCl (Dilaudid) 1 mg IVP Q6H PRN PRN Reason: Pain, severe (8-10) Sodium Chloride (Sodium Chloride 0.9%) 1,000 mls @ 100 mls/hr IV .Q10H [facility] Last Admin: 04/20/17 21:59 Dose: 100 mls/hr Imipenem/Cilastatin Sodium 500 (mg/ Sodium Chloride) 100 mls @ 100 mls/hr IVPB Q8H [facility] Last Admin: 04/21/17 08:56 Dose: 100 mls/hr Ketoconazole (Nizoral) 0 gm TOP BID [facility] Last Admin: 04/21/17 11:06 Dose: Not Given Losartan Potassium (Cozaar) 100 mg PO DAILY [facility] Last Admin: 04/21/17 11:06 Dose: Not Given Metoprolol Tartrate (Lopressor) 100 mg PO HS [facility] Last Admin: 04/20/17 21:18 Dose: 100 mg Montelukast Sodium (Singulair) 10 mg PO DAILY [facility] Last Admin: 04/21/17 11:11 Dose: Not Given Ondansetron HCl (Zofran Inj) 4 mg IVP Q6 PRN PRN Reason: Nausea/Vomiting Oxybutynin Chloride (Ditropan Xl) 5 mg PO DAILY [facility] Last Admin: 04/21/17 11:06 Dose: Not Given Oxycodone/Acetaminophen (Percocet 5/325 Mg Tab) 1 tab PO Q6H PRN PRN Reason: Pain, moderate (4-7) Stop: 04/22/17 15:25 Pantoprazole Sodium (Protonix Ec Tab) 40 mg PO DAILY [facility] Last Admin: 04/21/17 11:10 Dose: Not Given Ritonavir (Norvir) 100 mg PO DAILY [facility] Last Admin: 04/21/17 11:07 Dose: Not Given Sucralfate (Carafate Tab) 1 gm PO BID [facility] Last Admin: 04/21/17 11:06 Dose: Not Given Temazepam (Restoril) 15 mg PO HS [facility] Last Admin: 04/20/17 22:00 Dose: 15 mg - Labs Labs: 04/19/17 12:02 04/19/17 12:02 PT 16.0 SECONDS (9.7-12.2) H 04/19/17 12:02 INR 1.4 04/19/17 12:02 Assessment and Plan - Assessment and Plan (Free Text) Plan: 62 Y/O FEMALE ADMITTED FOR URETERAL OBSTRUCTION NEPHROSTOGRAM SHOWED DISTAL RIGHT AND LEFT URETERAL OBSTRUCTION RIGHT AND LEFT PERCUTANEOUS NEPHROSTOMY TUBE CHANGE CONTINUE HOME MEDS, PERCOCET 5/325 #12 GIVEN FOR PAIN, RISK, BENEFITS AND POSSIBLE NARCOTICS ADDICTION EXPLAINED TO PT, AGREE, VERBALIZE UNDERSTANDING PT EDUCATED TO F/U WITH PMD AND NEPHROLOGY IN THE OFFICE RETURN TO ER IF ANY WORSENING S/S
--- NOTE | 2017-04-21 18:24 | CP.PCM.DIS ---
Provider - Provider Date of Admission: 04/19/17 13:55 Attending physician: Lamberto Hamilton MD Time Spent in preparation of Discharge (in minutes): 20 Diagnosis - Discharge Diagnosis (1) Infection associated with nephrostomy catheter Status: Acute (2) UTI (lower urinary tract infection) Status: Acute (3) PERFECTO (acute kidney injury) Status: Acute Priority: High (4) Asthma exacerbation, mild Status: Acute (5) Deep venous thrombosis of lower extremity Status: Chronic (6) Hydronephrosis Status: Chronic (7) AIDS Status: Chronic Hospital Course - Lab Results Lab Results: Micro Results 04/19/17 10:00 Blood Blood Culture - Preliminary NO GROWTH AFTER 48 HOURS 04/19/17 12:20 Blood Blood Culture - Preliminary NO GROWTH AFTER 48 HOURS 04/19/17 18:59 Urine Urine Culture - Final 10-50,000 CFU/ML. MULTIPLE SPECIES. PROBABLE CONTAMINATION. Most Recent Lab Values WBC 7.5 K/uL (4.8-10.8) 04/19/17 12:02 RBC 4.10 Mil/uL (3.80-5.20) 04/19/17 12:02 Hgb 10.3 g/dL (11.0-16.0) L 04/19/17 12:02 Hct 32.3 % (34.0-47.0) L 04/19/17 12:02 MCV 78.7 fL (81.0-99.0) L D 04/19/17 12:02 MCH 25.1 pg (27.0-31.0) L 04/19/17 12:02 MCHC 31.9 g/dL (33.0-37.0) L 04/19/17 12:02 RDW 18.2 % (11.5-14.5) H 04/19/17 12:02 Plt Count 182 K/uL (130-400) 04/19/17 12:02 MPV 9.8 fL (7.2-11.7) 04/19/17 12:02 Neut % (Auto) 65.8 % (50.0-75.0) 04/19/17 12:02 Lymph % (Auto) 25.0 % (20.0-40.0) 04/19/17 12:02 [place] % (Auto) 7.7 % (0.0-10.0) 04/19/17 12:02 Eos % (Auto) 1.0 % (0.0-4.0) 04/19/17 12:02 Baso % (Auto) 0.5 % (0.0-2.0) 04/19/17 12:02 Neut # 5.0 K/uL (1.8-7.0) 04/19/17 12:02 Lymph # 1.9 K/uL (1.0-4.3) 04/19/17 12:02 [place] # 0.6 K/uL (0.0-0.8) 04/19/17 12:02 Eos # 0.1 K/uL (0.0-0.7) 04/19/17 12:02 Baso # 0.0 K/uL (0.0-0.2) 04/19/17 12:02 PT 16.0 SECONDS (9.7-12.2) H 04/19/17 12:02 INR 1.4 04/19/17 12:02 Sodium 135 mmol/L (132-148) 04/19/17 12:02 Potassium 4.3 mmol/L (3.6-5.2) 04/19/17 12:02 Chloride 103 mmol/L (98-107) 04/19/17 12:02 Carbon Dioxide 23 mmol/L (22-30) 04/19/17 12:02 Anion Gap 13 (10-20) 04/19/17 12:02 BUN 18 mg/dL (7-17) H 04/19/17 12:02 Creatinine 1.3 mg/dL (0.7-1.2) H 04/19/17 12:02 Est GFR ( Amer) 51 04/19/17 12:02 Est GFR (Non-Af Amer) 42 04/19/17 12:02 Random Glucose 90 mg/dL (65-105) 04/19/17 12:02 Calcium 9.1 mg/dl (8.6-10.4) 04/19/17 12:02 Total Bilirubin 0.4 mg/dL (0.2-1.3) 04/19/17 12:02 AST 19 U/L (14-36) 04/19/17 12:02 ALT 26 U/L (9-52) 04/19/17 12:02 Alkaline Phosphatase 65 U/L (38-126) 04/19/17 12:02 Total Protein 8.2 g/dL (6.3-8.3) 04/19/17 12:02 Albumin 3.9 g/dL (3.5-5.0) 04/19/17 12:02 Globulin 4.3 gm/dL (2.2-3.9) H 04/19/17 12:02 Albumin/Globulin Ratio 0.9 (1.0-2.1) L 04/19/17 12:02 Urine Color Yellow (YELLOW) 04/19/17 19:41 Urine Clarity Turbid (Clear) 04/19/17 19:41 Urine pH 7.0 (5.0-8.0) 04/19/17 19:41 Ur Specific [place] 1.014 (1.003-1.030) 04/19/17 19:41 Urine Protein 2+ mg/dL (NEGATIVE) H 04/19/17 19:41 Urine Glucose (UA) Normal mg/dL (Normal) 04/19/17 19:41 Urine Ketones Negative mg/dL (NEGATIVE) 04/19/17 19:41 Urine Blood 2+ (NEGATIVE) H 04/19/17 19:41 Urine Nitrate Negative (NEGATIVE) 04/19/17 19:41 Urine Bilirubin Negative (NEGATIVE) 04/19/17 19:41 Urine Urobilinogen Normal mg/dL (0.2-1.0) 04/19/17 19:41 Ur Leukocyte Esterase 2+ Pete/uL (Negative) H 04/19/17 19:41 Urine WBC (Auto) 6519 /hpf (0-5) H 04/19/17 19:41 Urine RBC (Auto) 1089 /hpf (0-3) H 04/19/17 19:41 Urine WBC Clumps (Auto) Few /hpf (NONE) H 04/19/17 19:41 Ur Squamous Epith Cells 6 /hpf (0-5) H 04/19/17 19:41 - Hospital Course Hospital Course: admitted with d/c from both nephrostomy tubes, dysurea, multiple resistance in cultured bacteria, admitted for iv antibiotics and change of nephrostomy in immune comprimized host (HIV) did well with treatment Discharge Exam - Head Exam Head Exam: NORMAL INSPECTION - Eye Exam Eye Exam: EOMI - ENT Exam ENT Exam: Mucous Membranes Moist - Neck Exam Neck exam: Full Rom - Respiratory Exam Respiratory Exam: Clear to PA & Lateral. absent: Rales - Cardiovascular Exam Cardiovascular Exam: REGULAR RHYTHM. absent: Systolic Murmur - GI/Abdominal Exam GI & Abdominal Exam: Normal Bowel Sounds. absent: Organomegaly - Rectal Exam Rectal Exam: Deferred - Extremities Exam Extremities exam: normal capillary refill - Neurological Exam Neurological exam: Alert, Oriented x3 - Psychiatric Exam Psychiatric exam: Normal Mood - Skin Skin Exam: Dry Discharge Plan - Discharge Medications Prescriptions: oxyCODONE/Acetaminophen [Percocet 5/325 mg Tab] 1 ea PO Q6H PRN #12 tab PRN Reason: Pain, Severe (8-10) - Follow Up Plan Condition: STABLE Disposition: HOME/ ROUTINE Instructions: Oxycodone/Acetaminophen (By mouth), Heart Failure (DC), Urinary Tract Infection in Women (DC), Heart Healthy Diet (DC), Nephrostomy Tube Care ( DC) Additional Instructions: PLEASE FOLLOW UP WITH DR HAMILTON IN 2-3 DAYS IN THE OFFICE- CALL FOR AN APPOINTMENT PLEASE FOLLOW UP WITH DR DONOVAN IN THE OFFICE -- CALL FOR AN APPOINTMENT CONTINUE MEDS PER MED REC RETURN TO ER IF ANY WORSENING SYMPTOMS Referrals: Cece Knutson MD [Staff Provider] - Lamberto Hamilton MD [Staff Provider] -
[2017-04-21] MEDS: Sodium Chloride 0.9% 1,000 ML IV SCH (18:41)
--- NOTE | 2017-04-21 18:55 | CP.PCM.PN ---
Subjective - Date & Time of Evaluation Date of Evaluation: 04/21/17 Time of Evaluation: 18:55 - Subjective Subjective: CHIEF COMPLAINTS TODAY : PATIENT SEEN POSTOPERATIVELY. S/P NEPHROSTOGRAM WHICH SHOWED DISTAL RIGHT AND LEFT URETERAL OBSTRUCTION S/P RIGHT AND LEFT PERCUTANEOUS NEPHROSTOMY TUBES CHANGED 04/21/17. Surgeon: Benjie Brannon MD Mountain Bike Guide: NONE Type of Anesthesia: IV Sedation ROS. HEENT : N. 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 Musculoskel : N Ext. : Pedal pulses intact, no edema or calf pain Derm : N Psych : N. PE. Pt. is alert awake in no distress. V.S As noted in the chart Head ,ear nose,throat and eyes : Normal. Neck : Supple with normal carotids. Lungs: Clear air entry. Heart : S1 & S2 normal . . No murmur. S4 + Abd : Soft ,MILD TENDERNESS BOTH FLANKS AND LOWER ABDOMEN, with normal bowel sounds. B/L NT IN PLACE. URINE CLEAR +VE COLOSTOMY.-STOOLS. Neuro : Moves all ext. with no localized deficit. Ext : No edema with intact pulses. Neg. calf tenderness Derm : No rashes or decubitus ulcer. Radiology/Labs . LABS REVIEWED. urine cultures -10-50,000 MULTIPLE SPECIES ?CONTAMINANT. .Blood cultures negative growth to date. Asssessment : -COMPLICATED UTI -HX OF BILATERAL HYDRONEPHROSIS S/P BILATERAL NT IN PLACE. RECENTLY CHANGED . -CA OF THE CERVIX S/P ILEOSTOMY.. -ACQUIRED IMMUNE DEFICIENCY SYNDROME.. -HX OF DVT/S/P IVC FILTER/ON ELAQUIS. - Plan : CASE DISCUSSED WITH N. PRACTITIONER.- MS Beulah MCHUGH. OKAY TO DISCHARGE PER ATTENDING AFTER ONE DOSE POSTOPERATIVELY OF IV PRIMAXIN AT 3:30 pm ANALGESICS PER PMD. Objective - Vital Signs/Intake and Output Vital Signs (last 24 hours): Temp Pulse Resp BP Pulse Ox 98 F 90 20 151/81 H 98 04/21/17 15:00 04/21/17 15:00 04/21/17 15:00 04/21/17 15:00 04/21/17 15:00 Intake and Output: 04/21/17 04/21/17 06:59 18:59 Intake Total 2100 Output Total 1950 Balance 150 - Medications Medications: Current Medications Acetaminophen (Tylenol 325mg Tab) 650 mg PO Q6 PRN PRN Reason: Fever >100.4 F Albuterol (Ventolin Hfa 90 Mcg/Actuation (8 G)) 2 puff INH RQ4 PRN PRN Reason: Shortness of Breath Albuterol Sulfate (Albuterol 0.083% Inhal Kristina (2.5 Mg/3 Ml) Ud) 2.5 mg INH RQ4 PRN PRN Reason: Cough and congestion Apixaban (Eliquis) 5 mg PO BID [facility] Last Admin: 04/21/17 16:59 Dose: 5 mg Darunavir (Prezista) 800 mg PO DAILY [facility] Last Admin: 04/21/17 16:59 Dose: 800 mg Dolutegravir Sodium (Tivicay) 50 mg PO DAILY [facility] Last Admin: 04/21/17 16:58 Dose: 50 mg Famciclovir (Famvir) 500 mg PO DAILY [facility] Last Admin: 04/21/17 16:59 Dose: 500 mg Hydromorphone HCl (Dilaudid) 1 mg IVP Q6H PRN PRN Reason: Pain, severe (8-10) Sodium Chloride (Sodium Chloride 0.9%) 1,000 mls @ 100 mls/hr IV .Q10H [facility] Last Admin: 04/21/17 18:41 Dose: Not Given Imipenem/Cilastatin Sodium 500 (mg/ Sodium Chloride) 100 mls @ 100 mls/hr IVPB Q8H [facility] Last Admin: 04/21/17 16:50 Dose: 100 mls/hr Ketoconazole (Nizoral) 0 gm TOP BID [facility] Last Admin: 04/21/17 17:00 Dose: Not Given Losartan Potassium (Cozaar) 100 mg PO DAILY [facility] Last Admin: 04/21/17 16:59 Dose: 100 mg Metoprolol Tartrate (Lopressor) 100 mg PO HS [facility] Last Admin: 04/20/17 21:18 Dose: 100 mg Montelukast Sodium (Singulair) 10 mg PO DAILY [facility] Last Admin: 04/21/17 11:11 Dose: Not Given Ondansetron HCl (Zofran Inj) 4 mg IVP Q6 PRN PRN Reason: Nausea/Vomiting Oxybutynin Chloride (Ditropan Xl) 5 mg PO DAILY [facility] Last Admin: 04/21/17 11:06 Dose: Not Given Oxycodone/Acetaminophen (Percocet 5/325 Mg Tab) 1 tab PO Q6H PRN PRN Reason: Pain, moderate (4-7) Stop: 04/22/17 15:25 Pantoprazole Sodium (Protonix Ec Tab) 40 mg PO DAILY [facility] Last Admin: 04/21/17 11:10 Dose: Not Given Ritonavir (Norvir) 100 mg PO DAILY [facility] Last Admin: 04/21/17 16:58 Dose: 100 mg Sucralfate (Carafate Tab) 1 gm PO BID [facility] Last Admin: 04/21/17 17:00 Dose: Not Given Temazepam (Restoril) 15 mg PO HS [facility] Last Admin: 04/20/17 22:00 Dose: 15 mg - Labs Labs: 04/19/17 12:02 04/19/17 12:02 PT 16.0 SECONDS (9.7-12.2) H 04/19/17 12:02 INR 1.4 04/19/17 12:02 Assessment and Plan (1) Complicated urinary tract infection Status: Acute (2) Infection associated with nephrostomy catheter Status: Acute (3) Hydroureteronephrosis Status: Acute (4) Cancer of cervix Status: Chronic (5) Colostomy in place Status: Chronic (6) Deep venous thrombosis of lower extremity Status: Chronic
== END 2017-04-21 19:00 | disposition home health service (06) | DRG 569 ==
LOC: C.ER 10:55 → C.9E 13:55 → C.6T 14:42
PROVIDERS: ADMIT Internal Medicine Cardiovascular Disease; ATTEND Internal Medicine Cardiovascular Disease
PROC: 0T29X0Z Change Drainage Device in Ureter, External Approach (ICD-10-PCS; principal; 2017-04-20)
PROC: 0T29X0Z Change Drainage Device in Ureter, External Approach (ICD-10-PCS; 2017-04-20)
DX: N99.521 Infection of incontinent external stoma of urinary tract (principal); B20 Human immunodeficiency virus [HIV] disease; N17.9 Acute kidney failure, unspecified; J45.901 Unspecified asthma with (acute) exacerbation; I13.0 Hypertensive heart and chronic kidney disease with heart failure and stage 1 through stage 4 chronic kidney disease, or unspecified chronic kidney disease; I50.9 Heart failure, unspecified; K29.70 Gastritis, unspecified, without bleeding; N39.0 Urinary tract infection, site not specified; J44.9 Chronic obstructive pulmonary disease, unspecified; N13.30 Unspecified hydronephrosis; N18.9 Chronic kidney disease, unspecified; B96.5 Pseudomonas (aeruginosa) (mallei) (pseudomallei) as the cause of diseases classified elsewhere; I82.509 Chronic embolism and thrombosis of unspecified deep veins of unspecified lower extremity; M81.0 Age-related osteoporosis without current pathological fracture; E78.5 Hyperlipidemia, unspecified; E78.00 Pure hypercholesterolemia, unspecified; D50.9 Iron deficiency anemia, unspecified; N13.8 Other obstructive and reflux uropathy; Y84.2 Radiological procedure and radiotherapy as the cause of abnormal reaction of the patient, or of later complication, without mention of misadventure at the time of the procedure; Z16.29 Resistance to other single specified antibiotic; Z85.41 Personal history of malignant neoplasm of cervix uteri; Z87.440 Personal history of urinary (tract) infections; Z87.442 Personal history of urinary calculi; Z87.891 Personal history of nicotine dependence; Z90.49 Acquired absence of other specified parts of digestive tract; Z90.710 Acquired absence of both cervix and uterus; Z92.21 Personal history of antineoplastic chemotherapy; Z92.3 Personal history of irradiation; Z93.2 Ileostomy status

== ENCOUNTER 2017-06-22 08:55 | Day surgery (SDC) | payer MEDICAID ==
[2017-06-22] MEDS ORDERED: cefTRIAXone IV 1 gm in Dextros 50 ML IVPB ONE (11:36)
[2017-06-22] MEDS ORDERED: Iohexol 240 (50 ml) ONE (11:37)
[2017-06-22] MEDS ORDERED: Iohexol 240 200 ML ONE (11:45)
[2017-06-22] MEDS ORDERED: Midazolam 2 MG/2 ML VIAL ONE (11:54)
[2017-06-22] MEDS ORDERED: DiphenhydrAMINE 50 mg/ml Inj ONE (11:54)
[2017-06-22] MEDS ORDERED: Propofol 10 mg/ml Inj (20 ML) ONE (12:10)
[2017-06-22] MEDS: HYDROmorphone 0.5 mg/0.5 ml ISec IVP PRN ×2 (12:55→13:32)
[2017-06-22 15:59] VITALS: BP 165/84; PULSE 67; RESP 20; TEMP 97; O2SAT 100
--- NOTE | 2017-06-22 17:09 | RAD ---
PROCEDURE: Fluoroscopy for bilateral nephrostogram HISTORY: Bilateral hydronephrosis COMPARISON: None TECHNIQUE: Total fluoroscopic time utilized during the procedure: 60.3 ; 1.19 mGy cm 2 FINDINGS: Submitted images from the current procedure: 14 Please refer to the physician's notes performing the procedure. IMPRESSION: Less than 1 hour fluoroscopic time utilized during performance of the procedure
--- NOTE | 2017-06-22 17:13 | RAD ---
HISTORY: BILAT HYDRONEPHROSIS COMPARISON: No prior. FINDINGS: BOWEL: Bilateral nephrostomy tubes project over expected location of each renal pelvis on the image labeled vocational rehabilitation teacher. On the same image an IVC filter projects over the right L2-3 in L4 transverse processes. Second image labeled last film: Contrast opacifies bilateral hydronephrosis right greater than left with partial opacification of mildly dilated proximal ureters. Left ureteral double-J stent also in place proximal coil over left renal pelvis distal projecting over expected bladder trace mental contrast in the bladder noted. Clip central upper pelvis. Right upper quadrant clips -probable cholecystectomy status BONES: No fracture or gross lytic lesions. Minimal bilateral hip arthrosis minimal L4-5 facet hypertrophic arthrosis OTHER FINDINGS: None. IMPRESSION: Bilateral nephrostomies. Left ureteral stent. Bilateral hydronephrosis with 2 degrees of hydro ureter -proximal visualized segments. No gross filling defects appreciated in opacified segments IVC filter surgical clips as above
--- NOTE | 2017-07-04 23:24 | OP ---
PROCEDURE DATE: PREOPERATIVE DIAGNOSIS: Bilateral nephrostomy drainage due to hydronephrosis and obstruction. PROCEDURE: Bilateral nephrostogram, cysto insertion of left stent. DESCRIPTION OF PROCEDURE: While the patient in lithotomy position and after starting sedation, bilateral nephrostogram was done. It showed drainage on the left side good, some narrow in the upper, but it was draining moderately okay all the way to the bladder. The right side was poor, stopping at one point and later, it stayed in the same point for about 20 minutes. Cysto was performed after giving more sedation and the bladder revealed [id number] both orifice because of the long nephrostomy drainage, but after we irrigated the bladder and cleaned it, a sensor wire was inserted on the right side - definitely, it stuck into the pelvic brim, where you see the sensor wire cannot be advanced. There was complete obstruction of that point on the pelvic brim. The sensor wire was inserted into the left and attached up to the kidney without problem. A 6-Albanian 24 stent was inserted and positioned between the kidney and the bladder. The left nephrostomy tube was closed to make the urine drain down to the bladder. The right nephrostomy was kept opened because there was complete obstruction. Again, while the scope in the bladder, the rest of the bladder was inspected. There was lesion on the posterior to left side, which is suspicious for recurrent tumor. This could not be biopsied because of the patient on blood thinner. Our second stage is to bring her, resect that tissue after we discontinue the blood thinner. Patient tolerated the procedure well and transferred to the recovery in stable condition. Cece Knutson MD
== END 2017-06-22 16:04 | disposition home or self-care (01) ==
LOC: C.SDS 08:55
PROVIDERS: ATTEND Specialist
DX: N13.30 Unspecified hydronephrosis (principal)
CPT/HCPCS: 52332; 74020; C1769; C2617; J0696; J1170; Q9966

== ENCOUNTER 2017-08-13 12:59 | Inpatient (IN) | payer MEDICAID ==
[2017-08-13 13:19] VITALS: BMI 26.9
[2017-08-13] MEDS ORDERED: Sodium Chloride 0.9% 1,000 ML IV ONE (13:50)
[2017-08-13 14:24] LABS: URINE BACTERIA OCC (<OCC); URINE BILIRUBIN NEGATIVE (NEGATIVE); URINE BLOOD 2+ (NEGATIVE); URINE CLARITY Turbid (Clear); URINE COLOR Yellow (YELLOW); URINE GLUCOSE (UA) NORMAL (Normal); URINE LEUKOCYTE ESTERASE 3+ Leu/uL (Negative); URINE NITRATE NEGATIVE (NEGATIVE); URINE PROTEIN 2+ mg/dL (NEGATIVE); URINE UROBILINOGEN NORMAL mg/dL (0.2-1.0); WBC CLUMPS FEW /hpf
--- NOTE | 2017-08-13 14:24 | C.PDOC ---
History Of Present Illness 62 year old female with PMHx of cervical cancer with medications presents to the ED c/o of chronic left flank pain, dysuria. History of cervical/uterine CA with mets, radical hysterectomy with ? bladder tumor, B/L ureteral obstruction due to pelvic masses, B/L ureteral stents and B/L nephrostomy stents. Patient states she is taking Percocet at home from Dr. Candelaria. Patient reports she is tired of taking them for pain and has not taken the medication today but she has 10 tablets left. Patient states she usually gets admitted for UTI because she is not able to tolerate PO antibiotics. Case was discussed with urologist Dr. Knutson who recommended renal US and considered inpatient pain relief antibiotics, pending cystoscopy in 2 days after antibiotics. Time Seen by Provider: 08/13/17 13:40 Chief Complaint (Nursing): Back Pain History Per: Patient History/Exam Limitations: no limitations Onset/Duration Of Symptoms: Days Quality Of Discomfort: "Pain" Previous Symptoms: Back Pain Recent travel outside of the [place]: No Additional History Per: Patient Past Medical History Reviewed: Historical Data, Nursing Documentation, Vital Signs Vital Signs: Last Vital Signs Temp 98.3 F 08/13/17 17:40 Pulse 77 08/13/17 17:40 Resp 20 08/13/17 17:40 BP 126/77 08/13/17 17:40 Pulse Ox 98 08/13/17 18:06 - Medical History PMH: Anemia, Anxiety, Arthritis, Asthma, CHF, COPD, Depression, Gastritis, HIV, HTN, Hypercholesterolemia, Hyperlipidemia, Kidney Stones, Malignancy (Cervical ( 2000)), Osteoporosis, Pancreatitis, Peripheral Edema, Chronic Kidney Disease Surgical History: Cholecystectomy, Endoscopy - [facility] Procedures CHANGE DRAINAGE DEVICE IN KIDNEY, EXTERNAL APPROACH (10/25/16) CHANGE DRAINAGE DEVICE IN URETER, EXTERNAL APPROACH (04/19/17) CYSTOSCOPY NEC (08/07/14) DILATION OF LEFT COMMON ILIAC VEIN, PERCUTANEOUS APPROACH (05/04/16) DILATION OF LEFT FEMORAL VEIN, PERCUTANEOUS APPROACH (05/04/16) FLUOROSCOPY OF BLADDER (09/25/16) INSERTION OF INTRALUM DEV INTO INF VENA CAVA, PERC APPROACH (05/04/16) INSERTION OF TOTALLY IMPLANTABLE VASC ACCESS DEVIC (10/02/03) INSPECTION OF BLADDER, ENDO (09/25/16) INTRAVENOUS PYELOGRAM (09/03/14) INTRODUCE OTH THROMBOLYTIC IN PERIPH VEIN, PERC (05/04/16) NEPHROSTOMY (06/26/14) PACKED CELL TRANSFUSION (11/20/14) PLAIN RADIOGRAPHY OF INFERIOR VENA CAVA USING OTHER CONTRAST (05/04/16) RADIOGRAPHY OF KIDNEY, URETER & BLADDER USING OTH CONTRAST (10/25/16) REMOV URETERAL DRAIN (09/26/14) REPLACE NEPHROSTOMY TUBE (10/31/14) RETROGRADE PYELOGRAM (01/15/15) URETERAL CATHETERIZATION (01/15/15) VAGINOSCOPY (05/30/14) VULVAR BIOPSY (02/07/14) Family History: States: Unknown Family Hx - Social History Hx Tobacco Use: No Hx Alcohol Use: No Hx Substance Use: No - Immunization History Hx Tetanus Toxoid Vaccination: Yes Hx Influenza Vaccination: Yes Hx Pneumococcal Vaccination: Yes Review Of Systems Constitutional: Negative for: Fever, Chills Cardiovascular: Negative for: Chest Pain, Palpitations Respiratory: Negative for: Cough, Shortness of Breath Gastrointestinal: Negative for: Nausea, Vomiting, Abdominal Pain Genitourinary: Positive for: Dysuria Musculoskeletal: Positive for: Back Pain Skin: Negative for: Rash Neurological: Negative for: Weakness, Numbness Physical Exam - Physical Exam Appears: Non-toxic, No Acute Distress, Other ( female) Skin: Normal Color, Warm, Dry Head: Atraumatic, Normacephalic Eye(s): bilateral: Normal Inspection Nose: No Discharge, No Deformity Oral Mucosa: Moist Neck: Normal ROM, Supple Chest: Symmetrical Cardiovascular: Rhythm Regular, No Murmur Respiratory: Normal Breath Sounds, No Rales, No Rhonchi, No Wheezing Gastrointestinal/Abdominal: Soft, No Tenderness, No Guarding, No Rebound Back: Other (Mild pain left flank area, non reproducible ) Extremity: Normal ROM, No Deformity, No Swelling Neurological/Psych: Oriented x3, Normal Speech, Normal Cognition Gait: Steady ED Course And Treatment - Laboratory Results Result Diagrams: 08/13/17 14:38 08/13/17 14:38 Lab Interpretation: Abnormal (UA 2250 WBC's) ECG: Interpreted By Me, Viewed By Me ECG Rhythm: Sinus Rhythm ECG Interpretation: Normal Rate From EC O2 Sat by Pulse Oximetry: 98 (On RA) Pulse Ox Interpretation: Normal - Other Rad Obstructive Series X-Ray X-Ray: Viewed By Me, Read By Radiologist Interpretation: PROCEDURE: Radiographs of the chest and abdomen (obstructive series). HISTORY: Abdominal pain. COMPARISON: No prior. TECHNIQUE: AP radiograph of the chest, with upright and supine radiographs of the abdomen. FINDINGS: No change left-sided PICC line the distal aspect of which traverses inferiorly over the left mediastinum probably within a left-sided SVC. Clinical correlation recommended. CHEST: Lungs: Minor biapical pleural thickening. . Cardiovascular: Normal size heart. No pulmonary vascular congestion. Pleura: No pleural fluid. No pneumothorax. Other findings: None. ABDOMEN AND PELVIS: In situ bilateral percutaneous nephrostomy tubes with left ureteral stent unchanged. . . In situ IVC filter unchanged. Metallic clips right upper quadrant of the abdomen again noted consistent prior cholecystectomy. Moderate amount of stool seen throughout most of the colon consistent with fecal retention/ constipation. . IMPRESSION: No acute cardiopulmonary disease. No change left-sided PICC line as described. Of bilateral percutaneous nephrostomy tubes with in situ left ureteral stent unchanged. In situ IVC filter and cholecystectomy clips. Note also made of a metallic surgical clips overlying the left parasagittal upper true pelvis. Findings consistent with constipation. - CT Scan/US Renal US Other Rad Studies (CT/US): Read By Radiologist, Radiology Report Reviewed CT/US Interpretation: PROCEDURE: Ultrasound of the Kidneys. HISTORY: Chronic left renal area discomfort, s/p nephrotsomy. COMPARISON: Comparison made with abdominal radiographs obtained earlier same day. Comparison also made with CT scan abdomen pelvis 10/25/2016 and renal ultrasound dated 02/05/2016.. TECHNIQUE: Sonogram of the kidneys. FINDINGS: RIGHT KIDNEY: Right kidney measures approximately 10.6 x 3.8 x 5.2 cm. In situ right percutaneous nephrostomy tube not well delineated on this study. Mild to moderate right- sided hydronephrosis. Normal in size, contour and echogenicity. No stone, solid mass lesion or hydronephrosis visualized. LEFT KIDNEY: Left kidney measures approximate 11.4 x 5.2 x 5.1 cm. In situ left ureteral stent. Left- sided percutaneous nephrostomy tube is present though less well seen compared to With mild to moderate left-sided hydronephrosis. Normal in size, contour and echogenicity. No stone, solid mass lesion or hydronephrosis visualized. OTHER FINDINGS: None. IMPRESSION: Bilateral percutaneous nephrostomy tubes poorly delineated in situ left ureteral stent is visible. Mild to moderate bilateral hydronephrosis left greater than right. Medical Decision Making Medical Decision Making: Impression : left flank pain Plan: * Labs * Obstructive series X-Ray * Film shows B/L nephrostomy tube, left side urethral stent and large amount of stool. * IV fluids * UA * Renal US Patient has nephrostomy tube in the right side with urine, tube in left side plugged without any drainage. 14:00 - discussed case with Dr. Geller who will consult. US showing b/l nephrostomy stents and baseline L>R mild/mod hydronephrosis Disposition Doctor Will See Patient In The: Hospital Counseled Patient/Family Regarding: Studies Performed, Diagnosis - Disposition Disposition: HOSPITALIZED Disposition Time: 17:05 Condition: GOOD - Clinical Impression Clinical Impression: UTI (lower urinary tract infection), Hydronephrosis of left kidney, Constipation - Scribe Statement The provider has reviewed the documentation as recorded by the Scribe [place] All medical record entries made by the Scribe were at my direction and personally dictated by me. I have reviewed the chart and agree that the record accurately reflects my personal performance of the history, physical exam, medical decision making, and the department course for this patient. I have also personally directed, reviewed, and agree with the discharge instructions and disposition.
[2017-08-13] MEDS ORDERED: Morphine 4 MG/ML VIAL IV ONE (14:38)
[2017-08-13 14:39] LABS: BARBITURATES, UR NEGATIVE (NEGATIVE); BENZODIAZEPINES, UR NEGATIVE (NEGATIVE); OPIATES, UR NEGATIVE (NEGATIVE); PHENCYCLIDINE, UR NEGATIVE (NEGATIVE)
[2017-08-13 14:42] LABS: BASO % 0.3 % (0.0-2.0); EOS # 0.1 K/uL (0.0-0.7); HEMOGLOBIN 10.5 g/dL (11.0-16.0); LYMPH % 22.4 % (20.0-40.0); MEAN CELL VOLUME 84.2 fL (81.0-99.0); MEAN CORPUSCULAR HEMOGLOBIN 27.5 pg (27.0-31.0); MEAN CORPUSCULAR HGB CONC 32.7 g/dL (33.0-37.0); MEAN PLATELET VOLUME 9.6 fL (7.2-11.7); MONO # 0.8 K/uL (0.0-0.8); MONO % 9.3 % (0.0-10.0); NEUT # 6.1 K/uL (1.8-7.0); RBC 3.81 Mil/uL (3.80-5.20); RED CELL DISTRIBUTION WIDTH 16.9 % (11.5-14.5); WHITE BLOOD COUNT 9.1 K/uL (4.8-10.8)
[2017-08-13 14:53] LABS: ALBUMIN 3.9 g/dL (3.5-5.0); CALCIUM 8.8 mg/dl (8.6-10.4)
--- NOTE | 2017-08-13 15:06 | RAD ---
PROCEDURE: Radiographs of the chest and abdomen (obstructive series) HISTORY: Abdominal pain COMPARISON: No prior. TECHNIQUE: AP radiograph of the chest, with upright and supine radiographs of the abdomen. FINDINGS: No change left-sided PICC line the distal aspect of which traverses inferiorly over the left mediastinum probably within a left-sided SVC. Clinical correlation recommended. CHEST: Lungs: Minor biapical pleural thickening. . Cardiovascular: Normal size heart. No pulmonary vascular congestion. Pleura: No pleural fluid. No pneumothorax. Other findings: None. ABDOMEN AND PELVIS: In situ bilateral percutaneous nephrostomy tubes with left ureteral stent unchanged. . . In situ IVC filter unchanged. Metallic clips right upper quadrant of the abdomen again noted consistent prior cholecystectomy. Moderate amount of stool seen throughout most of the colon consistent with fecal retention/ constipation. . IMPRESSION: No acute cardiopulmonary disease. No change left-sided PICC line as described. Of bilateral percutaneous nephrostomy tubes with in situ left ureteral stent unchanged. In situ IVC filter and cholecystectomy clips. Note also made of a metallic surgical clips overlying the left parasagittal upper true pelvis. Findings consistent with constipation.
[2017-08-13] MEDS ORDERED: Morphine 4 MG/ML VIAL ONE (15:17)
[2017-08-13] MEDS ORDERED: cefTRIAXone IV 1 gm in Dextros 50 ML IVPB ONE (15:17)
[2017-08-13] MEDS: cefTRIAXone IV 1 gm in Dextros 50 ML IV ONE ×2 (15:27→16:22)
--- NOTE | 2017-08-13 15:39 | US ---
PROCEDURE: Ultrasound of the Kidneys HISTORY: Chronic left renal area discomfort, s/p nephrotsomy COMPARISON: Comparison made with abdominal radiographs obtained earlier same day. Comparison also made with CT scan abdomen pelvis 10/25/2016 and renal ultrasound dated 02/05/2016.. TECHNIQUE: Sonogram of the kidneys. FINDINGS: RIGHT KIDNEY: Right kidney measures approximately 10.6 x 3.8 x 5.2 cm. In situ right percutaneous nephrostomy tube not well delineated on this study. Mild to moderate right-sided hydronephrosis. Normal in size, contour and echogenicity. No stone, solid mass lesion or hydronephrosis visualized. LEFT KIDNEY: Left kidney measures approximate 11.4 x 5.2 x 5.1 cm. In situ left ureteral stent. Left-sided percutaneous nephrostomy tube is present though less well seen compared to With mild to moderate left-sided hydronephrosis. Normal in size, contour and echogenicity. No stone, solid mass lesion or hydronephrosis visualized. OTHER FINDINGS: None. IMPRESSION: Bilateral percutaneous nephrostomy tubes poorly delineated in situ left ureteral stent is visible. Mild to moderate bilateral hydronephrosis left greater than right.
[2017-08-13] MEDS: Oxycodone/Acetaminophen 5/325 mg Tab PO PRN (20:19)
[2017-08-13] MEDS ORDERED: Albuterol HFA 90 mcg/actuation (8 g) INH PRN (23:22)
--- NOTE | 2017-08-13 23:40 | CP.PCM.HP ---
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 Patient states she has chronic microcytic anemia and Gastritis managed by her Management Coordinator, Dr. Wong for which she takes omeprazole. She received Intravenous Iron and blood transfusions, last given 2013. she is now with recurent urine infection, had antibiotics as out pt, also an admission for DVT, thrombectomy from femoral vein, then eliquis. referred by "Dr Knutson"for admission , IV antibiotics and exchange nephrostomy tubes, cystoscopy Present on Admission - Present on Admission Any Indicators Present on Admission: Yes History of DVT/PE: Yes History of Uncontrolled Diabetes: No Urinary Catheter: Yes Decubitus Ulcer Present: No Review of Systems - Review of Systems Systems not reviewed;Unavailable: Language Barrier - Constitutional Constitutional: Anorexia, Weakness - EENT Eyes: absent: Discharge Ears: absent: Ear Discharge, Dizziness Nose/Mouth/Throat: absent: Epistaxis - Cardiovascular Cardiovascular: absent: Acrocyanosis, Chest Pain, Diaphoresis, Dyspnea, Palpitations, Pedal Edema - Respiratory Respiratory: absent: Cough, Dyspnea, Hemoptysis - Gastrointestinal Gastrointestinal: Abdominal Pain, Constipation. absent: Diarrhea, Vomiting - Genitourinary Genitourinary: Change in Urinary Stream Past Patient History - Infectious Disease Hx of Infectious Diseases: None - Past Medical History & Family History Past Medical History?: Yes - Past Social History Smoking Status: Never Smoked - CARDIAC Hx Cardiac Disorders: Yes Hx Congestive Heart Failure: Yes Hx Hypercholesterolemia: Yes Hx Hypertension: Yes Hx Peripheral Edema: Yes - PULMONARY Hx Respiratory Disorders: Yes Hx Asthma: Yes Hx Chronic Obstructive Pulmonary Disease (COPD): Yes - NEUROLOGICAL Hx Neurological Disorder: Yes Hx Dizziness: Yes Hx Syncope: Yes Other/Comment: HEADACHES - HEENT Hx HEENT Problems: Yes Hx Cataracts: Yes (BILATERAL) - RENAL Hx Chronic Kidney Disease: Yes Hx Kidney Stones: Yes - ENDOCRINE/METABOLIC Hx Endocrine Disorders: No - HEMATOLOGICAL/ONCOLOGICAL Hx Blood Disorders: Yes Hx Anemia: Yes Hx Human Immunodeficiency Virus (HIV): Yes - INTEGUMENTARY Hx Dermatological Problems: No - MUSCULOSKELETAL/RHEUMATOLOGICAL Hx Musculoskeletal Disorders: Yes Hx Arthritis: Yes Hx Falls: No Hx Osteoporosis: Yes - GASTROINTESTINAL Hx Gastrointestinal Disorders: Yes Hx Gastritis: Yes Hx Pancreatitis: Yes - GENITOURINARY/GYNECOLOGICAL Hx Genitourinary Disorders: Yes Hx Cervical Cancer: Yes Hx Hematuria: Yes Hx Reproductive Disorders: Yes (S/P HYSTERECTOMY) Hx Urinary Tract Infection: Yes Other/Comment: NEPHROSTOMY TUBES. colostomy - PSYCHIATRIC Hx Psychophysiologic Disorder: Yes Hx Anxiety: Yes Hx Depression: Yes Hx Substance Use: No - SURGICAL HISTORY Hx Surgeries: Yes Hx Cholecystectomy: Yes - ANESTHESIA Hx Anesthesia: Yes Hx Anesthesia Reactions: No Hx Malignant Hyperthermia: No Has any member of the family had a problem w/ anesthesia?: No Meds Allergies/Adverse Reactions: Allergies Allergy/AdvReac Type Severity Reaction Status Date / Time sulfamethoxazole Allergy Intermediate ITCHING Verified 08/13/17 13:18 [From Bactrim] aloe vera Allergy ITCHING Verified 08/13/17 13:18 Sulfa (Sulfonamide Allergy ITCHING Verified 08/13/17 13:18 Antibiotics) Physical Exam - Constitutional Appears: Toxic - Head Exam Head Exam: ATRAUMATIC - Eye Exam Eye Exam: EOMI - ENT Exam ENT Exam: Mucous Membranes Moist - Neck Exam Neck exam: Negative for: Lymphadenopathy, Thyromegaly - Respiratory Exam Respiratory Exam: Clear to Auscultation Bilateral. absent: Rales, Wheezes - Cardiovascular Exam Cardiovascular Exam: Tachycardia, REGULAR RHYTHM, Systolic Murmur - GI/Abdominal Exam GI & Abdominal Exam: Normal Bowel Sounds. absent: Organomegaly - Rectal Exam Rectal Exam: Deferred - Extremities Exam Extremities exam: Positive for: normal capillary refill. Negative for: calf tenderness - Neurological Exam Neurological exam: Alert, Oriented x3 - Psychiatric Exam Psychiatric exam: Normal Affect - Skin Skin Exam: Dry Results - Vital Signs Recent Vital Signs: Last Vital Signs Temp 98.3 F 08/13/17 17:40 Pulse 77 08/13/17 17:40 Resp 20 08/13/17 17:40 BP 126/77 08/13/17 17:40 Pulse Ox 98 08/13/17 18:06 - Labs Result Diagrams: 08/14/17 06:58 08/14/17 06:58 Labs: Laboratory Results - last 24 hr 08/13/17 08/13/1718 14:14 14:14 14:38 WBC 9.1 RBC 3.81 Hgb 10.5 L Hct 32.1 L MCV 84.2 MCH 27.5 MCHC 32.7 L RDW 16.9 H Plt Count 180 MPV 9.6 Neut % (Auto) 67.0 Lymph % (Auto) 22.4 [place] % (Auto) 9.3 Eos % (Auto) 1.0 Baso % (Auto) 0.3 Neut # (Auto) 6.1 Lymph # (Auto) 2.0 [place] # (Auto) 0.8 Eos # (Auto) 0.1 Baso # (Auto) 0.0 Sodium Potassium Chloride Carbon Dioxide Anion Gap BUN Creatinine Est GFR ( Amer) Est GFR (Non-Af Amer) Random Glucose Calcium Total Bilirubin AST ALT Alkaline Phosphatase Total Protein Albumin Globulin Albumin/Globulin Ratio Lipase Urine Color Yellow Urine Clarity Turbid Urine pH 7.0 Ur Specific [place] 1.013 Urine Protein 2+ H Urine Glucose (UA) Normal Urine Ketones Negative Urine Blood 2+ H Urine Nitrate Negative Urine Bilirubin Negative Urine Urobilinogen Normal Ur Leukocyte Esterase 3+ H Urine WBC (Auto) 2237 H Urine RBC (Auto) 152 H Urine WBC Clumps (Auto) Few H Urine Bacteria Occ H Urine Opiates Screen Negative Urine Methadone Screen Negative Ur Barbiturates Screen Negative Ur Phencyclidine Scrn Negative Ur Amphetamines Screen Negative U Benzodiazepines Scrn Negative U Oth Cocaine Metabols Negative U Cannabinoids Screen Negative 08/13/17 14:38 WBC RBC Hgb Hct MCV MCH MCHC RDW Plt Count MPV Neut % (Auto) Lymph % (Auto) [place] % (Auto) Eos % (Auto) Baso % (Auto) Neut # (Auto) Lymph # (Auto) [place] # (Auto) Eos # (Auto) Baso # (Auto) Sodium 137 Potassium 4.6 Chloride 105 Carbon Dioxide 20 L Anion Gap 16 BUN 39 H Creatinine 2.3 H Est GFR ( Amer) 26 Est GFR (Non-Af Amer) 22 Random Glucose 98 Calcium 8.8 Total Bilirubin 0.7 AST 20 ALT 24 Alkaline Phosphatase 76 Total Protein 8.1 Albumin 3.9 Globulin 4.1 H Albumin/Globulin Ratio 1.0 Lipase 134 Urine Color Urine Clarity Urine pH Ur Specific [place] Urine Protein Urine Glucose (UA) Urine Ketones Urine Blood Urine Nitrate Urine Bilirubin Urine Urobilinogen Ur Leukocyte Esterase Urine WBC (Auto) Urine RBC (Auto) Urine WBC Clumps (Auto) Urine Bacteria Urine Opiates Screen Urine Methadone Screen Ur Barbiturates Screen Ur Phencyclidine Scrn Ur Amphetamines Screen U Benzodiazepines Scrn U Oth Cocaine Metabols U Cannabinoids Screen Assessment & Plan (1) Abdominal pain Status: Acute (2) Hydroureteronephrosis Status: Acute (3) Infection associated with nephrostomy catheter Status: Acute (4) Malfunction of nephrostomy tube Status: Acute (5) Pyelonephritis, acute Status: Acute (6) HIV (human immunodeficiency virus infection) Status: Chronic Decision To Admit - Pt Status Changed To: Hospital Disposition Of: Inpatient - Admit Certification Admit to Inpatient:: After my assessment, the patient will require hospitalization for at least two midnights. This is because of the severity of symptoms shown, intensity of services needed, and/or the medical risk in this patient being treated as an outpatient. - InPatient: Physician Admission Certification:: yes - . Bed Request Type: Regular
[2017-08-14] MEDS: Oxycodone/Acetaminophen 5/325 mg Tab PO PRN (00:33)
[2017-08-14] MEDS: Ciprofloxacin 400mg/200ml D5W 400 MG/200 ML BAG IVPB SCH ×4 (01:19→23:50)
[2017-08-14] MEDS: Sodium Chloride 0.9% 1,000 ML IV SCH ×3 (01:19→21:21)
[2017-08-14 07:27] LABS: BASO % 0.3 % (0.0-2.0); EOS # 0.2 K/uL (0.0-0.7); EOS % 2.3 % (0.0-4.0); HEMOGLOBIN 9.3 g/dL (11.0-16.0); LYMPH # 1.7 K/uL (1.0-4.3); LYMPH % 25.4 % (20.0-40.0); MEAN CELL VOLUME 85.5 fL (81.0-99.0); MEAN CORPUSCULAR HEMOGLOBIN 27.9 pg (27.0-31.0); MEAN CORPUSCULAR HGB CONC 32.6 g/dL (33.0-37.0); MEAN PLATELET VOLUME 10.3 fL (7.2-11.7); MONO # 0.8 K/uL (0.0-0.8); MONO % 11.5 % (0.0-10.0); NEUT # 4.1 K/uL (1.8-7.0); NEUT % 60.5 % (50.0-75.0); RBC 3.33 Mil/uL (3.80-5.20); RED CELL DISTRIBUTION WIDTH 16.8 % (11.5-14.5); WHITE BLOOD COUNT 6.8 K/uL (4.8-10.8)
[2017-08-14 07:51] LABS: ALB/GLOB RATIO 0.9 (1.0-2.1); CALCIUM 7.2 mg/dl (8.6-10.4)
[2017-08-14] MEDS: Pantoprazole 40 mg EC Tab PO SCH (09:52)
--- NOTE | 2017-08-14 12:16 | CARD ---
APPROVED REPORT EKG Measurement Heart [id number] <Conclusion> Normal sinus rhythm Possible Left atrial enlargement Borderline ECG
--- NOTE | 2017-08-14 12:54 | CP.PCM.PN ---
Subjective - Date & Time of Evaluation Date of Evaluation: 08/14/17 Time of Evaluation: 12:00 - Subjective Subjective: Still with pain add intravenous morphine, with hematuria planning for cystoscopy on Monday advised to hold non-Coumadin anticoagulation. Objective - Vital Signs/Intake and Output Vital Signs (last 24 hours): Temp Pulse Resp BP Pulse Ox 98 F 70 20 132/80 96 08/14/17 07:52 08/14/17 07:52 08/14/17 07:52 08/14/17 07:52 08/14/17 07:52 Intake and Output: 08/14/17 08/14/17 06:59 18:59 Intake Total 400 1100 Output Total 150 120 Balance 250 980 - Medications Medications: Current Medications Acetaminophen (Tylenol 325mg Tab) 650 mg PO Q6 PRN PRN Reason: Fever >100.4 F Albuterol (Ventolin Hfa 90 Mcg/Actuation (8 G)) 2 puff INH Q4 PRN PRN Reason: Shortness of Breath Darunavir (Prezista) 800 mg PO DAILY [facility] Last Admin: 08/14/17 09:51 Dose: 800 mg Docusate Sodium (Colace) 100 mg PO BID [facility] Last Admin: 08/14/17 09:51 Dose: 100 mg Dolutegravir Sodium (Tivicay) 50 mg PO DAILY [facility] Last Admin: 08/14/17 09:51 Dose: 50 mg Escitalopram Oxalate (Lexapro) 5 mg PO DAILY [facility] Last Admin: 08/14/17 09:52 Dose: 5 mg Famciclovir (Famvir) 500 mg PO DAILY [facility] Last Admin: 08/14/17 09:51 Dose: 500 mg Hydromorphone HCl (Dilaudid) 4 mg IVP Q4H PRN PRN Reason: Pain, severe (8-10) Ciprofloxacin (Cipro 400mg/200ml Dsw) 400 mg in 200 mls @ 133 mls/hr IVPB Q12H [facility] Last Admin: 08/14/17 12:09 Dose: Not Given Sodium Chloride (Sodium Chloride 0.9%) 1,000 mls @ 100 mls/hr IV .Q10H [facility] Last Admin: 08/14/17 09:58 Dose: Not Given Lactulose (Enulose) 10 gm PO DAILY PRN PRN Reason: Constipation Loratadine (Claritin) 10 mg PO DAILY [facility] Metoprolol Tartrate (Lopressor) 100 mg PO [facility] Last Admin: 08/14/17 00:32 Dose: 100 mg Montelukast Sodium (Singulair) 10 mg PO [facility] Ondansetron HCl (Zofran Inj) 4 mg IVP Q6 PRN PRN Reason: Nausea/Vomiting Last Admin: 08/14/17 11:52 Dose: 4 mg Oxybutynin Chloride (Ditropan Xl) 5 mg PO DAILY [facility] Last Admin: 08/14/17 09:51 Dose: 5 mg Oxycodone/Acetaminophen (Percocet 5/325 Mg Tab) 1 tab PO Q4H PRN PRN Reason: Pain, severe (8-10) Stop: 08/16/17 20:13 Last Admin: 08/14/17 00:33 Dose: 1 tab Pantoprazole Sodium (Protonix Ec Tab) 40 mg PO DAILY [facility] Last Admin: 08/14/17 09:52 Dose: 40 mg Ritonavir (Norvir) 100 mg PO DAILY [facility] Last Admin: 08/14/17 09:51 Dose: 100 mg Temazepam (Restoril) 15 mg PO [facility] Last Admin: 08/14/17 00:35 Dose: Not Given - Labs Labs: 08/14/17 06:58 08/14/17 06:58 - Constitutional Appears: Non-toxic - Head Exam Head Exam: ATRAUMATIC - Eye Exam Eye Exam: EOMI - ENT Exam ENT Exam: Mucous Membranes Moist - Neck Exam Neck Exam: absent: Lymphadenopathy, Thyromegaly - Respiratory Exam Respiratory Exam: Clear to Ausculation Bilateral. absent: Rales, Wheezes - Cardiovascular Exam Cardiovascular Exam: REGULAR RHYTHM, Murmur - GI/Abdominal Exam GI & Abdominal Exam: Normal Bowel Sounds. absent: Organomegaly - Rectal Exam Rectal Exam: Deferred - Extremities Exam Extremities Exam: Normal Capillary Refill. absent: Calf Tenderness - Neurological Exam Neurological Exam: Alert, Oriented x3 - Psychiatric Exam Psychiatric exam: Normal Affect - Skin Skin Exam: Dry Assessment and Plan (1) Abdominal pain Status: Acute (2) Hydroureteronephrosis Status: Acute (3) Infection associated with nephrostomy catheter Status: Acute (4) Malfunction of nephrostomy tube Status: Acute (5) Pyelonephritis, acute Status: Acute (6) HIV (human immunodeficiency virus infection) Status: Chronic
[2017-08-14] MEDS ORDERED: Oxycodone/Acetaminophen 5/325 mg Tab PO PRN (13:00)
--- NOTE | 2017-08-14 13:46 | CP.PCM.CON ---
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 Patient has had multiple hospitalizations at [facility] for complicated UTIs and for change of bilateral nephrostomy tubes every 3 months last hospitalized [facility] 02/13/17. Patient now sent by Dr. Knutson for admission for change of left external nephrostomy tubes as patient having pain left renal angle and turbid urine. PATIENT COMPLAINS OF DYSURIA ON VOIDING, DENIES ANY HEMATURIA. PATIENT DENIES FEVER OR CHILLS. PATIENT ALSO COMPLAINS OF DISCHARGE ON EXIT SITE OF LEFT EXTERNAL NEPHROSTOMY TUBE. PATIENT ALSO COMPLAINED OF CONSTIPATION AND HAD NO BOWEL MOVEMENT FOR 2 DAYS. PATIENT STATES HER BOWELS TODAY AFTER USING LAXATIVES. PATIENT HAS A LEFT PICC LINE. AND COLOSTOMY BAG. Infectious disease consultation requested by PMD Dr. Vega for further evaluation for sepsis and AND COMPLICATED UTI WITH BILATERAL HYDRONEPHROSIS. . patient also has history of DVT, thrombectomy from femoral vein and presently on ELIQUIS. Patient is presently on TIVICAY. Norvir, Prezista HAART therapy and is very compliant with her medications. Her last viral load was undetectable PMHx: see HPI. Nephrostomy and colostomy were done due to damages from chemoradiation for cervical CA. Pt visited PMD for routine HIV follow up on 2015 and was told viral count undetectable. CD4 145 on 08/19/14 per record. PSHx: Cervical CA resection 2000, colostomy bag 2009. FMHx: both parents from [place]. Sister and brother had MA. Social: former smoker, 5 cigarettes to 1 pack a day for 10 years, stopped 2011. Denied ETOH or drugs use. Lives alone, unemployeed. PMD: Dr. Rjoas Nichole Review of Systems - Constitutional Constitutional: Lethargy, Weakness. absent: Chills, Fever - EENT Eyes: absent: Change in Vision, Floaters Nose/Mouth/Throat: Dry Mouth - Breasts Breasts: absent: Mass, Nipple Discharge, Skin Changes - Cardiovascular Cardiovascular: absent: Chest Pain, Dyspnea - Respiratory Respiratory: absent: Cough - Gastrointestinal Gastrointestinal: Abdominal Pain (LT. FLANK PAIN), Constipation, Dyspepsia, Nausea. absent: Diarrhea, Vomiting - Genitourinary Genitourinary: Urinary Hesitance, Freq UTI, Hx /Renal Surgery. absent: Dysuria, Flank Pain (LEFT), Hematuria - Reproductive: Female Reproductive:Female: Post Menopausal - Neurological Neurological: absent: Dizziness, Headaches - Hematologic/Lymphatic Hematologic: As Per HPI. absent: Easy Bleeding, Easy Bruising Past Patient History - Infectious Disease Hx of Infectious Diseases: None - Past Medical History & Family History Past Medical History?: Yes - Past Social History Smoking Status: Never Smoked - CARDIAC Hx Congestive Heart Failure: Yes Hx Hypercholesterolemia: Yes Hx Hypertension: Yes Hx Peripheral Edema: Yes - PULMONARY Hx Asthma: Yes Hx Chronic Obstructive Pulmonary Disease (COPD): Yes - NEUROLOGICAL Hx Neurological Disorder: Yes Hx Dizziness: Yes Hx Syncope: Yes Other/Comment: HEADACHES - HEENT Hx HEENT Problems: Yes Hx Cataracts: Yes (BILATERAL) - RENAL Hx Chronic Kidney Disease: Yes Hx Kidney Stones: Yes - ENDOCRINE/METABOLIC Hx Endocrine Disorders: No - HEMATOLOGICAL/ONCOLOGICAL Hx Anemia: Yes Hx Human Immunodeficiency Virus (HIV): Yes - INTEGUMENTARY Hx Dermatological Problems: No - MUSCULOSKELETAL/RHEUMATOLOGICAL Hx Arthritis: Yes Hx Osteoporosis: Yes - GASTROINTESTINAL Hx Gastritis: Yes Hx Pancreatitis: Yes - GENITOURINARY/GYNECOLOGICAL Hx Genitourinary Disorders: Yes Hx Cervical Cancer: Yes Hx Hematuria: Yes Hx Reproductive Disorders: Yes (S/P HYSTERECTOMY) Hx Urinary Tract Infection: Yes Other/Comment: NEPHROSTOMY TUBES. colostomy - PSYCHIATRIC Hx Anxiety: Yes Hx Depression: Yes Hx Substance Use: No - SURGICAL HISTORY Hx Cholecystectomy: Yes - ANESTHESIA Hx Anesthesia: Yes Hx Anesthesia Reactions: No Hx Malignant Hyperthermia: No Has any member of the family had a problem w/ anesthesia?: No Meds Allergies/Adverse Reactions: Allergies Allergy/AdvReac Type Severity Reaction Status Date / Time sulfamethoxazole Allergy Intermediate ITCHING Verified 08/13/17 13:18 [From Bactrim] aloe vera Allergy ITCHING Verified 08/13/17 13:18 Sulfa (Sulfonamide Allergy ITCHING Verified 08/13/17 13:18 Antibiotics) - Medications Medications: Current Medications Acetaminophen (Tylenol 325mg Tab) 650 mg PO Q6 PRN PRN Reason: Fever >100.4 F Albuterol (Ventolin Hfa 90 Mcg/Actuation (8 G)) 2 puff INH Q4 PRN PRN Reason: Shortness of Breath Darunavir (Prezista) 800 mg PO DAILY [facility] Last Admin: 08/14/17 09:51 Dose: 800 mg Docusate Sodium (Colace) 100 mg PO BID [facility] Last Admin: 08/14/17 09:51 Dose: 100 mg Dolutegravir Sodium (Tivicay) 50 mg PO DAILY [facility] Last Admin: 08/14/17 09:51 Dose: 50 mg Escitalopram Oxalate (Lexapro) 5 mg PO DAILY [facility] Last Admin: 08/14/17 09:52 Dose: 5 mg Famciclovir (Famvir) 500 mg PO DAILY [facility] Last Admin: 08/14/17 09:51 Dose: 500 mg Hydromorphone HCl (Dilaudid) 4 mg IVP Q4H PRN PRN Reason: Pain, severe (8-10) Last Admin: 08/14/17 13:20 Dose: 4 mg Ciprofloxacin (Cipro 400mg/200ml Dsw) 400 mg in 200 mls @ 133 mls/hr IVPB Q12H [facility] Last Admin: 08/14/17 12:09 Dose: Not Given Sodium Chloride (Sodium Chloride 0.9%) 1,000 mls @ 100 mls/hr IV .Q10H [facility] Last Admin: 08/14/17 09:58 Dose: Not Given Lactulose (Enulose) 10 gm PO DAILY PRN PRN Reason: Constipation Last Admin: 08/14/17 13:20 Dose: 10 gm Loratadine (Claritin) 10 mg PO DAILY [facility] Metoprolol Tartrate (Lopressor) 100 mg PO HS [facility] Last Admin: 08/14/17 00:32 Dose: 100 mg Montelukast Sodium (Singulair) 10 mg PO HS [facility] Ondansetron HCl (Zofran Inj) 4 mg IVP Q6 PRN PRN Reason: Nausea/Vomiting Last Admin: 08/14/17 11:52 Dose: 4 mg Oxybutynin Chloride (Ditropan Xl) 5 mg PO DAILY [facility] Last Admin: 08/14/17 09:51 Dose: 5 mg Pantoprazole Sodium (Protonix Ec Tab) 40 mg PO DAILY [facility] Last Admin: 08/14/17 09:52 Dose: 40 mg Ritonavir (Norvir) 100 mg PO DAILY [facility] Last Admin: 08/14/17 09:51 Dose: 100 mg Temazepam (Restoril) 15 mg PO HS [facility] Last Admin: 08/14/17 00:35 Dose: Not Given Physical Exam - Constitutional Appears: No Acute Distress - Head Exam Head Exam: NORMAL INSPECTION - Eye Exam Eye Exam: EOMI, PERRL. absent: Scleral icterus - ENT Exam ENT Exam: Normal Oropharynx - Neck Exam Neck exam: Positive for: Normal Inspection - Respiratory Exam Respiratory Exam: Clear to Auscultation Bilateral - Cardiovascular Exam Cardiovascular Exam: REGULAR RHYTHM, +S1, +S2 - GI/Abdominal Exam GI & Abdominal Exam: Hypoactive Bowel Sounds, Soft. absent: Tenderness (LT CVA ) Additional comments: LT.EXTERNAL NEPHROSTOMY TUBE IN PLACE. DRAINAGE YELLOWISH EXIT SITE. - Extremities Exam Extremities exam: Positive for: pedal pulses present. Negative for: calf tenderness, pedal edema - Skin Skin Exam: Normal Color, Warm Results - Vital Signs Recent Vital Signs: Last Vital Signs Temp 98 F 08/14/17 07:52 Pulse 70 08/14/17 07:52 Resp 20 08/14/17 07:52 BP 132/80 08/14/17 07:52 Pulse Ox 96 08/14/17 07:52 - Labs Result Diagrams: 08/14/17 06:58 08/14/17 06:58 Labs: Laboratory Results - last 24 hr 08/13/17 08/13/17 08/13/17 14:14 14:14 14:38 WBC 9.1 RBC 3.81 Hgb 10.5 L Hct 32.1 L MCV 84.2 MCH 27.5 MCHC 32.7 L RDW 16.9 H Plt Count 180 MPV 9.6 Neut % (Auto) 67.0 Lymph % (Auto) 22.4 [place] % (Auto) 9.3 Eos % (Auto) 1.0 Baso % (Auto) 0.3 Neut # (Auto) 6.1 Lymph # (Auto) 2.0 [place] # (Auto) 0.8 Eos # (Auto) 0.1 Baso # (Auto) 0.0 Sodium Potassium Chloride Carbon Dioxide Anion Gap BUN Creatinine Est GFR ( Amer) Est GFR (Non-Af Amer) Random Glucose Calcium Total Bilirubin AST ALT Alkaline Phosphatase Total Protein Albumin Globulin Albumin/Globulin Ratio Lipase Urine Color Yellow Urine Clarity Turbid Urine pH 7.0 Ur Specific [place] 1.013 Urine Protein 2+ H Urine Glucose (UA) Normal Urine Ketones Negative Urine Blood 2+ H Urine Nitrate Negative Urine Bilirubin Negative Urine Urobilinogen Normal Ur Leukocyte Esterase 3+ H Urine WBC (Auto) 2237 H Urine RBC (Auto) 152 H Urine WBC Clumps (Auto) Few H Urine Bacteria Occ H Urine Opiates Screen Negative Urine Methadone Screen Negative Ur Barbiturates Screen Negative Ur Phencyclidine Scrn Negative Ur Amphetamines Screen Negative U Benzodiazepines Scrn Negative U Oth Cocaine Metabols Negative U Cannabinoids Screen Negative 08/13/17 08/14/17 08/14/17 14:38 06:58 06:58 WBC 6.8 RBC 3.33 L Hgb 9.3 L Hct 28.5 L MCV 85.5 MCH 27.9 MCHC 32.6 L RDW 16.8 H Plt Count 137 MPV 10.3 Neut % (Auto) 60.5 Lymph % (Auto) 25.4 [place] % (Auto) 11.5 H Eos % (Auto) 2.3 Baso % (Auto) 0.3 Neut # (Auto) 4.1 Lymph # (Auto) 1.7 [place] # (Auto) 0.8 Eos # (Auto) 0.2 Baso # (Auto) 0.0 Sodium 137 138 Potassium 4.6 4.5 Chloride 105 111 H Carbon Dioxide 20 L 17 L Anion Gap 16 15 BUN 39 H 35 H Creatinine 2.3 H 1.7 H Est GFR ( Amer) 26 37 Est GFR (Non-Af Amer) 22 31 Random Glucose 98 92 Calcium 8.8 7.2 L Total Bilirubin 0.7 0.4 AST 20 26 ALT 24 18 Alkaline Phosphatase 76 55 Total Protein 8.1 6.3 Albumin 3.9 3.0 L D Globulin 4.1 H 3.3 Albumin/Globulin Ratio 1.0 0.9 L Lipase 134 Urine Color Urine Clarity Urine pH Ur Specific [place] Urine Protein Urine Glucose (UA) Urine Ketones Urine Blood Urine Nitrate Urine Bilirubin Urine Urobilinogen Ur Leukocyte Esterase Urine WBC (Auto) Urine RBC (Auto) Urine WBC Clumps (Auto) Urine Bacteria Urine Opiates Screen Urine Methadone Screen Ur Barbiturates Screen Ur Phencyclidine Scrn Ur Amphetamines Screen U Benzodiazepines Scrn U Oth Cocaine Metabols U Cannabinoids Screen - Imaging and Cardiology RENAL ULTRASOUND Status: Report reviewed by me Assessment & Plan (1) Complicated urinary tract infection Status: Acute (2) Bilateral hydronephrosis Status: Acute (3) Abdominal pain Status: Acute (4) HIV disease Status: Acute (5) Cancer of cervix Status: Chronic (6) Colostomy in place Status: Chronic - Assessment and Plan (Free Text) Assessment: Asssessment : -COMPLICATED UTI.- GNR(URINE+VE ON CULTURE ) -ABDOMINAL PAIN -HX OF BILATERAL HYDRONEPHROSIS S/P BILATERAL NT IN PLACE. RECENTLY CHANGED . -CA OF THE CERVIX S/P ILEOSTOMY.. -ACQUIRED IMMUNE DEFICIENCY SYNDROME.. - PRERENAL AZOTEMIA. -HX OF DVT/S/P IVC FILTER/ON ELAQUIS. -CONSTIPATION PLAN: BLOOD CULTURES 2 SETS STAT WOUND CULTURE LEFT NEPHROSTOMY TUBE EXIT SITE. ADD iv MEROPENEM 500 MG EVERY 8 HOURLY FOR ADDED PSEUDOMONAL COVERAGE.08/14/17. CONTINUE iv CIPRO 400 EVERY 12 HOURLY.08/13/17. IV HYDRATION. INCREASE BY MOUTH INTAKE PATIENT NOT DRINKING AND EATING APPROPRIATELY. fOLLOW-UP CULTURES TO ADJUST ANTIBIOTICS. fOLLOW-UP RENAL FUNCTIONS CLOSELY. CHECK HIV -RNA PCR QUANTITATIVE LEVELS. CHECK LYMPHOCYTE SUBSET STUDIES. WILL FOLLOW ALONG WITH YOU AND MAKE RECOMMENDATIONS NEEDED. THANK YOU. -
[2017-08-14] MEDS ORDERED: Meropenem 500 MG in Sodium Chloride 0.9% 100 ML IVPB SCH (14:30)
[2017-08-14] MEDS: Meropenem 500 MG in Sodium Chloride 0.9% 100 ML IVPB SCH (17:59)
[2017-08-15] MEDS: Meropenem 500 MG in Sodium Chloride 0.9% 100 ML IVPB SCH ×3 (01:25→17:09)
[2017-08-15] MEDS: Sodium Chloride 0.9% 1,000 ML IV SCH ×2 (05:30→15:27)
[2017-08-15 06:54] LABS: BASO % 0.5 % (0.0-2.0); EOS # 0.1 K/uL (0.0-0.7); EOS % 1.8 % (0.0-4.0); HEMOGLOBIN 9.7 g/dL (11.0-16.0); LYMPH # 1.6 K/uL (1.0-4.3); LYMPH % 27.3 % (20.0-40.0); MEAN CELL VOLUME 85.8 fL (81.0-99.0); MEAN CORPUSCULAR HEMOGLOBIN 27.3 pg (27.0-31.0); MEAN CORPUSCULAR HGB CONC 31.8 g/dL (33.0-37.0); MEAN PLATELET VOLUME 9.6 fL (7.2-11.7); MONO # 0.6 K/uL (0.0-0.8); MONO % 9.9 % (0.0-10.0); NEUT # 3.6 K/uL (1.8-7.0); NEUT % 60.5 % (50.0-75.0); RBC 3.56 Mil/uL (3.80-5.20); RED CELL DISTRIBUTION WIDTH 16.8 % (11.5-14.5)
--- NOTE | 2017-08-15 09:46 | CON ---
DATE: HISTORY OF PRESENT ILLNESS: The patient is a 62-year-old [place] female who has bilateral nephrostomy due to ureteral obstruction, due to cervical cancer, post radiation and surgery. The patient has right nephrostomy functioning well, but the right ureter completely blocked, and the previous study showed no contrast going through. The right side stent inserted because the patient wants to get rid of the nephrostomy but one month after inserting the stent, the patient continued to have pain on and off from the left side. Came to the ER with severe pain and required morphine treatment. Urine cloudy and bloody. The patient previously has the nephrostomy closed and the workup revealed mass in the left side of the bladder could be a recurrent tumor. The patient at this time, started on antibiotic, pain killer. We will schedule her to do the cysto and removal of stent as per I talked to her today. She wants the stent out and wants to keep the nephrostomy because it was less painful. PHYSICAL EXAMINATION: GENERAL: Revealed the patient in mild distress. ABDOMEN: Left flank tenderness. No mass palpable. No suprapubic fullness or tenderness. GENITOURINARY: Urine likely bloody. The colostomy is working fine. IMPRESSION: Urethral obstruction due to cervical cancer, condition left stenting, the patient has bilateral nephrostomy. PLAN: To do cysto removal of stent and biopsy and resection of the tumor. We will schedule her also to change both nephrostomy tubes while she is in the hospital. The patient is started on antibiotic and she is on pain killer. Cece Knutson MD
[2017-08-15] MEDS: Pantoprazole 40 mg EC Tab PO SCH ×2 (11:10→14:33)
[2017-08-15] MEDS: Ciprofloxacin 400mg/200ml D5W 400 MG/200 ML BAG IVPB SCH ×2 (11:11→23:06)
--- NOTE | 2017-08-15 12:02 | CP.PCM.PN ---
Subjective - Date & Time of Evaluation Date of Evaluation: 08/15/17 Time of Evaluation: 12:00 - Subjective Subjective: Less pain on pain management, white count down to 6 from 9000 for cystoscopy in the morning, change of the nephrostomy tube Objective - Vital Signs/Intake and Output Vital Signs (last 24 hours): Temp Pulse Resp BP Pulse Ox 98.4 F 75 20 134/82 97 08/15/17 08:55 08/15/17 08:55 08/15/17 08:55 08/15/17 08:55 08/15/17 08:55 Intake and Output: 08/15/17 08/15/17 06:59 18:59 Intake Total 1800 Output Total 600 Balance 1200 - Medications Medications: Current Medications Acetaminophen (Tylenol 325mg Tab) 650 mg PO Q6 PRN PRN Reason: Fever >100.4 F Albuterol (Ventolin Hfa 90 Mcg/Actuation (8 G)) 2 puff INH Q4 PRN PRN Reason: Shortness of Breath Darunavir (Prezista) 800 mg PO DAILY [facility] Last Admin: 08/15/17 11:10 Dose: Not Given Docusate Sodium (Colace) 100 mg PO BID [facility] Last Admin: 08/15/17 11:09 Dose: Not Given Dolutegravir Sodium (Tivicay) 50 mg PO DAILY [facility] Last Admin: 08/15/17 11:10 Dose: Not Given Escitalopram Oxalate (Lexapro) 5 mg PO DAILY [facility] Last Admin: 08/15/17 11:09 Dose: Not Given Famciclovir (Famvir) 500 mg PO DAILY [facility] Last Admin: 08/15/17 11:09 Dose: Not Given Hydromorphone HCl (Dilaudid) 4 mg IVP Q4H PRN PRN Reason: Pain, severe (8-10) Last Admin: 08/14/17 13:20 Dose: 4 mg Ciprofloxacin (Cipro 400mg/200ml Dsw) 400 mg in 200 mls @ 133 mls/hr IVPB Q12H [facility] Last Admin: 08/15/17 11:11 Dose: 133 mls/hr Sodium Chloride (Sodium Chloride 0.9%) 1,000 mls @ 100 mls/hr IV .Q10H [facility] Last Admin: 08/15/17 05:30 Dose: Not Given Meropenem 500 mg/ Sodium (Chloride) 100 mls @ 100 mls/hr IVPB Q8H [facility] Last Admin: 08/15/17 09:00 Dose: 100 mls/hr Lactulose (Enulose) 10 gm PO DAILY PRN PRN Reason: Constipation Last Admin: 08/14/17 13:20 Dose: 10 gm Loratadine (Claritin) 10 mg PO DAILY [facility] Last Admin: 08/15/17 11:09 Dose: Not Given Metoprolol Tartrate (Lopressor) 100 mg PO [facility] Last Admin: 08/14/17 21:17 Dose: 100 mg Montelukast Sodium (Singulair) 10 mg PO [facility] Last Admin: 08/14/17 21:17 Dose: 10 mg Ondansetron HCl (Zofran Inj) 4 mg IVP Q6 PRN PRN Reason: Nausea/Vomiting Last Admin: 08/14/17 17:59 Dose: 4 mg Oxybutynin Chloride (Ditropan Xl) 5 mg PO DAILY [facility] Last Admin: 08/14/17 09:51 Dose: 5 mg Pantoprazole Sodium (Protonix Ec Tab) 40 mg PO DAILY [facility] Last Admin: 08/15/17 11:10 Dose: Not Given Ritonavir (Norvir) 100 mg PO DAILY [facility] Last Admin: 08/15/17 11:09 Dose: Not Given Temazepam (Restoril) 15 mg PO [facility] Last Admin: 08/14/17 21:17 Dose: 15 mg - Labs Labs: 08/15/17 06:42 08/15/17 06:42 - Constitutional Appears: Non-toxic - Head Exam Head Exam: ATRAUMATIC - Eye Exam Eye Exam: EOMI - ENT Exam ENT Exam: Mucous Membranes Moist - Neck Exam Neck Exam: absent: Lymphadenopathy, Thyromegaly - Respiratory Exam Respiratory Exam: Clear to Ausculation Bilateral. absent: Rales - Cardiovascular Exam Cardiovascular Exam: REGULAR RHYTHM, Murmur - GI/Abdominal Exam GI & Abdominal Exam: Normal Bowel Sounds. absent: Organomegaly - Rectal Exam Rectal Exam: Deferred - Extremities Exam Extremities Exam: Normal Capillary Refill. absent: Calf Tenderness - Neurological Exam Neurological Exam: Alert, Oriented x3 - Psychiatric Exam Psychiatric exam: Normal Mood - Skin Skin Exam: Dry Assessment and Plan (1) Abdominal pain Status: Acute (2) Hydroureteronephrosis Status: Acute (3) Infection associated with nephrostomy catheter Status: Acute (4) Malfunction of nephrostomy tube Status: Acute (5) Pyelonephritis, acute Status: Acute (6) HIV (human immunodeficiency virus infection) Status: Chronic
--- NOTE | 2017-08-15 13:33 | CP.PCM.PN ---
Subjective - Date & Time of Evaluation Date of Evaluation: 08/15/17 Time of Evaluation: 13:33 - Subjective Subjective: AFEBRILE, LESS PAIN LEFT FLANK. TOLERATING iv ANTIBIOTICS. PATIENT FOR OR IN A.M. FOR CHANGE OF NEPHROSTOMY TUBE LABS; URINE CULTURE +VE PSEUDOMONAS AERUGINOSA S-cIPRO, MEROPENEM. LT.NT EXIT SITE +VE GRAM-POSITIVE COCCI IN CL[employer] HEAVY GROWTH. Objective - Vital Signs/Intake and Output Vital Signs (last 24 hours): Temp Pulse Resp BP Pulse Ox 98.4 F 75 20 134/82 97 08/15/17 08:55 08/15/17 08:55 08/15/17 08:55 08/15/17 08:55 08/15/17 08:55 Intake and Output: 08/15/17 08/15/17 06:59 18:59 Intake Total 1800 Output Total 600 Balance 1200 - Medications Medications: Current Medications Acetaminophen (Tylenol 325mg Tab) 650 mg PO Q6 PRN PRN Reason: Fever >100.4 F Albuterol (Ventolin Hfa 90 Mcg/Actuation (8 G)) 2 puff INH Q4 PRN PRN Reason: Shortness of Breath Darunavir (Prezista) 800 mg PO DAILY [facility] Last Admin: 08/15/17 11:10 Dose: Not Given Docusate Sodium (Colace) 100 mg PO BID [facility] Last Admin: 08/15/17 11:09 Dose: Not Given Dolutegravir Sodium (Tivicay) 50 mg PO DAILY [facility] Last Admin: 08/15/17 11:10 Dose: Not Given Escitalopram Oxalate (Lexapro) 5 mg PO DAILY [facility] Last Admin: 08/15/17 11:09 Dose: Not Given Famciclovir (Famvir) 500 mg PO DAILY [facility] Last Admin: 08/15/17 11:09 Dose: Not Given Hydromorphone HCl (Dilaudid) 4 mg IVP Q4H PRN PRN Reason: Pain, severe (8-10) Last Admin: 08/14/17 13:20 Dose: 4 mg Ciprofloxacin (Cipro 400mg/200ml Dsw) 400 mg in 200 mls @ 133 mls/hr IVPB Q12H [facility] Last Admin: 08/15/17 11:11 Dose: 133 mls/hr Sodium Chloride (Sodium Chloride 0.9%) 1,000 mls @ 100 mls/hr IV .Q10H [facility] Last Admin: 08/15/17 05:30 Dose: Not Given Meropenem 500 mg/ Sodium (Chloride) 100 mls @ 100 mls/hr IVPB Q8H [facility] Last Admin: 08/15/17 09:00 Dose: 100 mls/hr Lactulose (Enulose) 10 gm PO DAILY PRN PRN Reason: Constipation Last Admin: 08/14/17 13:20 Dose: 10 gm Loratadine (Claritin) 10 mg PO DAILY [facility] Last Admin: 08/15/17 11:09 Dose: Not Given Metoprolol Tartrate (Lopressor) 100 mg PO [facility] Last Admin: 08/14/17 21:17 Dose: 100 mg Montelukast Sodium (Singulair) 10 mg PO [facility] Last Admin: 08/14/17 21:17 Dose: 10 mg Ondansetron HCl (Zofran Inj) 4 mg IVP Q6 PRN PRN Reason: Nausea/Vomiting Last Admin: 08/14/17 17:59 Dose: 4 mg Oxybutynin Chloride (Ditropan Xl) 5 mg PO DAILY [facility] Last Admin: 08/14/17 09:51 Dose: 5 mg Pantoprazole Sodium (Protonix Ec Tab) 40 mg PO DAILY [facility] Last Admin: 08/15/17 11:10 Dose: Not Given Ritonavir (Norvir) 100 mg PO DAILY [facility] Last Admin: 08/15/17 11:09 Dose: Not Given Temazepam (Restoril) 15 mg PO [facility] Last Admin: 08/14/17 21:17 Dose: 15 mg - Labs Labs: 08/15/17 06:42 08/15/17 06:42 - Constitutional Appears: No Acute Distress - Head Exam Head Exam: NORMAL INSPECTION - Eye Exam Eye Exam: EOMI, PERRL - ENT Exam ENT Exam: Normal Oropharynx - Neck Exam Neck Exam: Normal Inspection - Respiratory Exam Respiratory Exam: Clear to Ausculation Bilateral - Cardiovascular Exam Cardiovascular Exam: REGULAR RHYTHM, +S1, +S2 - GI/Abdominal Exam GI & Abdominal Exam: Soft, Hypoactive Bowel Sounds. absent: Tenderness (LEFT FLANK.) - Extremities Exam Extremities Exam: absent: Calf Tenderness, Pedal Edema - Back Exam Back Exam: absent: CVA tenderness (L) - Neurological Exam Neurological Exam: Awake, CN II-XII Intact, Oriented x3, Reflexes Normal - Psychiatric Exam Psychiatric exam: Normal Mood - Skin Skin Exam: Normal Color, Warm Assessment and Plan (1) Complicated urinary tract infection Status: Acute (2) Bilateral hydronephrosis Status: Acute (3) Abdominal pain Status: Acute (4) HIV disease Status: Acute (5) Cancer of cervix Status: Chronic (6) Colostomy in place Status: Chronic - Assessment and Plan (Free Text) Assessment: Asssessment : -COMPLICATED UTI.-+VE PSEUDOMONAS AERUGINOSA. - LT NT. EXIT SITE -INFECTION (GP COCCI. ) -ABDOMINAL PAIN -HX OF BILATERAL HYDRONEPHROSIS S/P BILATERAL NT IN PLACE. RECENTLY CHANGED . -CA OF THE CERVIX S/P ILEOSTOMY.. -ACQUIRED IMMUNE DEFICIENCY SYNDROME.. - PRERENAL AZOTEMIA. -HX OF DVT/S/P IVC FILTER/ON ELAQUIS. -CONSTIPATION PLAN: PATIENT FOR OR IN AM ADD iv VANCOMYCIN 1 G ONCE A DAY DAILY.08/15/17 ADD iv MEROPENEM 500 MG EVERY 8 HOURLY FOR ADDED PSEUDOMONAL COVERAGE.08/14/17. CONTINUE iv CIPRO 400 EVERY 12 HOURLY.08/13/17. IV HYDRATION. INCREASE BY MOUTH INTAKE PATIENT NOT DRINKING AND EATING APPROPRIATELY. fOLLOW-UP CULTURES TO ADJUST ANTIBIOTICS. fOLLOW-UP RENAL FUNCTIONS CLOSELY.
[2017-08-16] MEDS: Meropenem 500 MG in Sodium Chloride 0.9% 100 ML IVPB SCH ×3 (01:06→17:08)
[2017-08-16] MEDS: Sodium Chloride 0.9% 1,000 ML IV SCH ×4 (01:30→21:49)
[2017-08-16 08:06] LABS: CALCIUM 8.5 mg/dl (8.6-10.4)
[2017-08-16] MEDS ORDERED: Influenza Vaccine 60 mcg/0.5 mL SYR (4YR UP) IM ONE (10:00)
[2017-08-16] MEDS ORDERED: Pneumococcal 23-Valent Vaccine IM ONE (10:00)
[2017-08-16] MEDS: Ciprofloxacin 400mg/200ml D5W 400 MG/200 ML BAG IVPB SCH ×2 (12:01→22:58)
[2017-08-16] MEDS: Pantoprazole 40 mg EC Tab PO SCH (12:05)
--- NOTE | 2017-08-16 12:25 | CP.PCM.PN ---
Subjective - Date & Time of Evaluation Date of Evaluation: 08/16/17 Time of Evaluation: 12:00 - Subjective Subjective: For Cysto today Objective - Vital Signs/Intake and Output Vital Signs (last 24 hours): Temp Pulse Resp BP Pulse Ox 98.1 F 82 20 119/72 95 08/16/17 00:00 08/16/17 00:00 08/16/17 00:00 08/16/17 00:00 08/16/17 00:00 Intake and Output: 08/16/17 08/16/17 06:59 18:59 Intake Total 2100 Output Total 500 Balance 1600 - Medications Medications: Current Medications Acetaminophen (Tylenol 325mg Tab) 650 mg PO Q6 PRN PRN Reason: Fever >100.4 F Albuterol (Ventolin Hfa 90 Mcg/Actuation (8 G)) 2 puff INH Q4 PRN PRN Reason: Shortness of Breath Darunavir (Prezista) 800 mg PO DAILY [facility] Last Admin: 08/16/17 10:26 Dose: Not Given Docusate Sodium (Colace) 100 mg PO BID [facility] Last Admin: 08/16/17 10:26 Dose: Not Given Dolutegravir Sodium (Tivicay) 50 mg PO DAILY [facility] Last Admin: 08/16/17 10:26 Dose: Not Given Escitalopram Oxalate (Lexapro) 5 mg PO DAILY [facility] Last Admin: 08/16/17 10:26 Dose: Not Given Famciclovir (Famvir) 500 mg PO DAILY [facility] Last Admin: 08/16/17 10:26 Dose: Not Given Hydromorphone HCl (Dilaudid) 4 mg IVP Q4H PRN PRN Reason: Pain, severe (8-10) Last Admin: 08/16/17 08:10 Dose: 4 mg Ciprofloxacin (Cipro 400mg/200ml Dsw) 400 mg in 200 mls @ 133 mls/hr IVPB Q12H [facility] Last Admin: 08/16/17 12:01 Dose: 133 mls/hr Sodium Chloride (Sodium Chloride 0.9%) 1,000 mls @ 100 mls/hr IV .Q10H [facility] Last Admin: 08/16/17 12:06 Dose: Not Given Meropenem 500 mg/ Sodium (Chloride) 100 mls @ 100 mls/hr IVPB Q8H [facility] Last Admin: 08/16/17 08:14 Dose: 100 mls/hr Vancomycin HCl 1 gm/ Sodium (Chloride) 250 mls @ 166.7 mls/hr IVPB Q24H [facility] Last Admin: 08/16/17 02:35 Dose: 166.7 mls/hr Lactulose (Enulose) 10 gm PO DAILY PRN PRN Reason: Constipation Last Admin: 08/15/17 14:32 Dose: 10 gm Loratadine (Claritin) 10 mg PO DAILY [facility] Last Admin: 08/16/17 10:26 Dose: Not Given Metoprolol Tartrate (Lopressor) 100 mg PO [facility] Last Admin: 08/15/17 22:06 Dose: 100 mg Montelukast Sodium (Singulair) 10 mg PO [facility] Last Admin: 08/15/17 22:07 Dose: 10 mg Ondansetron HCl (Zofran Inj) 4 mg IVP Q6 PRN PRN Reason: Nausea/Vomiting Last Admin: 08/15/17 15:13 Dose: 4 mg Oxybutynin Chloride (Ditropan Xl) 5 mg PO DAILY [facility] Last Admin: 08/16/17 10:26 Dose: Not Given Pantoprazole Sodium (Protonix Ec Tab) 40 mg PO DAILY [facility] Last Admin: 08/16/17 12:05 Dose: Not Given Ritonavir (Norvir) 100 mg PO DAILY [facility] Last Admin: 08/16/17 10:26 Dose: Not Given Temazepam (Restoril) 15 mg PO [facility] Last Admin: 08/15/17 22:06 Dose: Not Given - Labs Labs: 08/15/17 06:42 08/16/17 07:15 - Constitutional Appears: Non-toxic - Head Exam Head Exam: ATRAUMATIC - Eye Exam Eye Exam: EOMI - ENT Exam ENT Exam: Mucous Membranes Moist - Neck Exam Neck Exam: absent: Lymphadenopathy, Thyromegaly - Respiratory Exam Respiratory Exam: Clear to Ausculation Bilateral. absent: Rales - Cardiovascular Exam Cardiovascular Exam: REGULAR RHYTHM, Murmur - GI/Abdominal Exam GI & Abdominal Exam: Normal Bowel Sounds. absent: Organomegaly - Rectal Exam Rectal Exam: Deferred - Extremities Exam Extremities Exam: Normal Capillary Refill. absent: Calf Tenderness - Neurological Exam Neurological Exam: Alert, Oriented x3 - Psychiatric Exam Psychiatric exam: Normal Mood - Skin Skin Exam: Dry Assessment and Plan (1) Abdominal pain Status: Acute (2) Hydroureteronephrosis Status: Acute (3) Infection associated with nephrostomy catheter Status: Acute (4) Malfunction of nephrostomy tube Status: Acute (5) Pyelonephritis, acute Status: Acute (6) HIV (human immunodeficiency virus infection) Status: Chronic
[2017-08-16] MEDS ORDERED: Midazolam 2 MG/2 ML VIAL ONE (13:17)
[2017-08-16] MEDS ORDERED: Propofol 10 mg/ml Inj (20 ML) ONE (13:18)
[2017-08-16] MEDS ORDERED: Lidocaine 2% Jelly (Uro-Jet) ONE (13:22)
[2017-08-16] MEDS ORDERED: Phenylephrine 10 mg/ml Inj ONE (13:52)
[2017-08-16] MEDS ORDERED: HYDROmorphone 0.5 mg/0.5 ml ISec IVP PRN (14:02)
[2017-08-16 17:28] LABS: % CD4 (T HELPER CELL) 28 Percent (30-61); % CD8 (SUPPRESSOR T CELL) 43 Percent (12-42); ABSOLUTE CD4 CELLS 469 Cells/mcL (490-1740); ABSOLUTE CD8 CELLS 721 Cells/mcL (180-1170); ABSOLUTE LYMPHOCYTES 1695 Cells/mcL (850-3900); HELPER/SUPPRESSOR RATIO 0.65 Ratio (0.86-5.00)
--- NOTE | 2017-08-16 21:00 | CP.PCM.PN ---
Subjective - Date & Time of Evaluation Date of Evaluation: 08/16/17 Time of Evaluation: 21:00 - Subjective Subjective: afebrile, S/P CYSTOSCOPY TODAY AND BIOPSY. cOMFORTABLE. RT. NT-EXIT SITE +VE MSSA. . Objective - Vital Signs/Intake and Output Vital Signs (last 24 hours): Temp Pulse Resp BP Pulse Ox 97.4 F L 82 15 148/77 100 08/16/17 15:30 08/16/17 15:30 08/16/17 15:30 08/16/17 15:30 08/16/17 15:30 Intake and Output: 08/16/17 08/17/17 18:59 06:59 Intake Total 1100 Output Total 52 Balance 1048 - Medications Medications: Current Medications Acetaminophen (Tylenol 325mg Tab) 650 mg PO Q6 PRN PRN Reason: Fever >100.4 F Albuterol (Ventolin Hfa 90 Mcg/Actuation (8 G)) 2 puff INH Q4 PRN PRN Reason: Shortness of Breath Darunavir (Prezista) 800 mg PO DAILY [facility] Last Admin: 08/16/17 10:26 Dose: Not Given Docusate Sodium (Colace) 100 mg PO BID [facility] Last Admin: 08/16/17 18:23 Dose: 100 mg Dolutegravir Sodium (Tivicay) 50 mg PO DAILY [facility] Last Admin: 08/16/17 10:26 Dose: Not Given Escitalopram Oxalate (Lexapro) 5 mg PO DAILY [facility] Last Admin: 08/16/17 10:26 Dose: Not Given Famciclovir (Famvir) 500 mg PO DAILY [facility] Last Admin: 08/16/17 10:26 Dose: Not Given Hydromorphone HCl (Dilaudid) 4 mg IVP Q4H PRN PRN Reason: Pain, severe (8-10) Last Admin: 08/16/17 18:32 Dose: 4 mg Ciprofloxacin (Cipro 400mg/200ml Dsw) 400 mg in 200 mls @ 133 mls/hr IVPB Q12H [facility] Last Admin: 08/16/17 12:01 Dose: 133 mls/hr Sodium Chloride (Sodium Chloride 0.9%) 1,000 mls @ 100 mls/hr IV .Q10H [facility] Last Admin: 08/16/17 12:06 Dose: Not Given Meropenem 500 mg/ Sodium (Chloride) 100 mls @ 100 mls/hr IVPB Q8H [facility] Last Admin: 08/16/17 17:08 Dose: 100 mls/hr Vancomycin/Sodium Chloride (Vancomycin 1 Gm/Ns 200 Ml) 1 gm in 200 mls @ 133.333 mls/hr IVPB Q24H [facility] Stop: 08/22/17 02:31 Lactulose (Enulose) 10 gm PO DAILY PRN PRN Reason: Constipation Last Admin: 08/15/17 14:32 Dose: 10 gm Loratadine (Claritin) 10 mg PO DAILY [facility] Last Admin: 08/16/17 10:26 Dose: Not Given Metoprolol Tartrate (Lopressor) 100 mg PO [facility] Last Admin: 08/15/17 22:06 Dose: 100 mg Montelukast Sodium (Singulair) 10 mg PO [facility] Last Admin: 08/15/17 22:07 Dose: 10 mg Ondansetron HCl (Zofran Inj) 4 mg IVP Q6 PRN PRN Reason: Nausea/Vomiting Last Admin: 08/15/17 15:13 Dose: 4 mg Oxybutynin Chloride (Ditropan Xl) 5 mg PO DAILY [facility] Last Admin: 08/16/17 10:26 Dose: Not Given Pantoprazole Sodium (Protonix Ec Tab) 40 mg PO DAILY [facility] Last Admin: 08/16/17 12:05 Dose: Not Given Ritonavir (Norvir) 100 mg PO DAILY [facility] Last Admin: 08/16/17 10:26 Dose: Not Given Temazepam (Restoril) 15 mg PO [facility] Last Admin: 08/15/17 22:06 Dose: Not Given - Labs Labs: 08/15/17 06:42 08/16/17 07:15 - Constitutional Appears: No Acute Distress - Head Exam Head Exam: NORMAL INSPECTION - Eye Exam Eye Exam: EOMI, PERRL - ENT Exam ENT Exam: Normal Oropharynx - Neck Exam Neck Exam: Normal Inspection - Respiratory Exam Respiratory Exam: Clear to Ausculation Bilateral - Cardiovascular Exam Cardiovascular Exam: REGULAR RHYTHM, +S1, +S2 - GI/Abdominal Exam GI & Abdominal Exam: Soft, Normal Bowel Sounds (COLOSTOMY +VE) Additional comments: LEFT.NT SITE +VE DRESSING - Extremities Exam Extremities Exam: absent: Calf Tenderness, Pedal Edema - Back Exam Back Exam: CVA tenderness (L) - Neurological Exam Neurological Exam: Alert, Awake, CN II-XII Intact, Oriented x3, Reflexes Normal - Psychiatric Exam Psychiatric exam: Normal Mood - Skin Skin Exam: Normal Color, Warm Assessment and Plan (1) Complicated urinary tract infection Status: Acute (2) Bilateral hydronephrosis Status: Acute (3) Abdominal pain Status: Acute (4) HIV disease Status: Acute (5) Cancer of cervix Status: Chronic (6) Colostomy in place Status: Chronic - Assessment and Plan (Free Text) Assessment: Asssessment : -COMPLICATED UTI.-+VE PSEUDOMONAS AERUGINOSA. - LT NT. EXIT SITE -INFECTION (GP COCCI. ) -ABDOMINAL PAIN -HX OF BILATERAL HYDRONEPHROSIS S/P BILATERAL NT IN PLACE. RECENTLY CHANGED . -CA OF THE CERVIX S/P ILEOSTOMY.. -ACQUIRED IMMUNE DEFICIENCY SYNDROME.. - PRERENAL AZOTEMIA. -HX OF DVT/S/P IVC FILTER/ON ELAQUIS. -CONSTIPATION PLAN: DC iv VANCOMYCIN 1 G ONCE A DAY DAILY.08/15/17. CONTINUE iv MEROPENEM 500 MG EVERY 8 HOURLY FOR ADDED PSEUDOMONAL COVERAGE.. CONTINUE iv CIPRO 400 EVERY 12 HOURLY.08/13/17. NT-EXIT SITE +VE MSSA -S TO CIPRO. IV HYDRATION. PER . fOLLOW-UP RENAL FUNCTIONS CLOSELY.
[2017-08-17] MEDS: Meropenem 500 MG in Sodium Chloride 0.9% 100 ML IVPB SCH ×3 (01:01→17:41)
[2017-08-17 01:24] VITALS: RESP 20
[2017-08-17] MEDS ORDERED: Vancomycin 1 gm/NS 200 ml 1 GM/200 ML BAG IVPB SCH (02:30)
[2017-08-17] MEDS: Pantoprazole 40 mg EC Tab PO SCH (09:56)
--- NOTE | 2017-08-17 10:29 | RAD ---
PROCEDURE: HISTORY: As Above COMPARISON: None TECHNIQUE: Total fluoroscopic time utilized during the procedure: 2.3 seconds. Total dose 0.61786 mGy cm squared FINDINGS: Submitted images from the current procedure: 2 Please refer to the physician's notes performing the procedure. IMPRESSION: Less than 1 hour fluoroscopic time utilized during performance of the procedure
[2017-08-17] MEDS: Ciprofloxacin 400mg/200ml D5W 400 MG/200 ML BAG IVPB SCH ×2 (11:03→22:50)
--- NOTE | 2017-08-17 17:13 | CP.PCM.PN ---
Subjective - Date & Time of Evaluation Date of Evaluation: 08/17/17 Time of Evaluation: 12:00 - Subjective Subjective: had cysto did well, removed stent, to exchange nephrostomy tubes in AM, delayed! Objective - Vital Signs/Intake and Output Vital Signs (last 24 hours): Temp Pulse Resp BP Pulse Ox 98.4 F 90 20 126/77 96 08/17/17 15:15 08/17/17 15:15 08/17/17 15:15 08/17/17 15:15 08/17/17 15:15 Intake and Output: 08/17/17 08/17/17 06:59 18:59 Intake Total 2100 Output Total 900 Balance 1200 - Medications Medications: Current Medications Acetaminophen (Tylenol 325mg Tab) 650 mg PO Q6 PRN PRN Reason: Fever >100.4 F Albuterol (Ventolin Hfa 90 Mcg/Actuation (8 G)) 2 puff INH Q4 PRN PRN Reason: Shortness of Breath Darunavir (Prezista) 800 mg PO DAILY [facility] Last Admin: 08/17/17 09:56 Dose: 800 mg Docusate Sodium (Colace) 100 mg PO BID [facility] Last Admin: 08/17/17 09:56 Dose: 100 mg Dolutegravir Sodium (Tivicay) 50 mg PO DAILY [facility] Last Admin: 08/17/17 09:56 Dose: 50 mg Escitalopram Oxalate (Lexapro) 5 mg PO DAILY [facility] Last Admin: 08/17/17 09:56 Dose: 5 mg Famciclovir (Famvir) 500 mg PO DAILY [facility] Last Admin: 08/17/17 09:56 Dose: 500 mg Hydromorphone HCl (Dilaudid) 4 mg IVP Q4H PRN PRN Reason: Pain, severe (8-10) Last Admin: 08/17/17 15:56 Dose: 4 mg Ciprofloxacin (Cipro 400mg/200ml Dsw) 400 mg in 200 mls @ 133 mls/hr IVPB Q12H [facility] Last Admin: 08/17/17 11:03 Dose: 133 mls/hr Meropenem 500 mg/ Sodium (Chloride) 100 mls @ 100 mls/hr IVPB Q8H [facility] Last Admin: 08/17/17 09:57 Dose: 100 mls/hr Lactulose (Enulose) 10 gm PO DAILY PRN PRN Reason: Constipation Last Admin: 08/17/17 09:56 Dose: 10 gm Loratadine (Claritin) 10 mg PO DAILY [facility] Last Admin: 08/17/17 09:56 Dose: 10 mg Metoprolol Tartrate (Lopressor) 100 mg PO HS [facility] Last Admin: 08/16/17 21:47 Dose: 100 mg Montelukast Sodium (Singulair) 10 mg PO HS [facility] Last Admin: 08/16/17 21:47 Dose: 10 mg Ondansetron HCl (Zofran Inj) 4 mg IVP Q6 PRN PRN Reason: Nausea/Vomiting Last Admin: 08/17/17 14:04 Dose: 4 mg Oxybutynin Chloride (Ditropan Xl) 5 mg PO DAILY [facility] Last Admin: 08/17/17 09:56 Dose: 5 mg Pantoprazole Sodium (Protonix Ec Tab) 40 mg PO DAILY [facility] Last Admin: 08/17/17 09:56 Dose: 40 mg Ritonavir (Norvir) 100 mg PO DAILY [facility] Last Admin: 08/17/17 09:56 Dose: 100 mg Temazepam (Restoril) 15 mg PO [facility] Last Admin: 08/16/17 21:49 Dose: Not Given - Labs Labs: 08/15/17 06:42 08/16/17 07:15 - Constitutional Appears: Non-toxic - Head Exam Head Exam: ATRAUMATIC - Eye Exam Eye Exam: EOMI - ENT Exam ENT Exam: Mucous Membranes Moist - Neck Exam Neck Exam: absent: Lymphadenopathy, Thyromegaly - Respiratory Exam Respiratory Exam: Clear to Ausculation Bilateral. absent: Rales - Cardiovascular Exam Cardiovascular Exam: REGULAR RHYTHM. absent: Murmur - GI/Abdominal Exam GI & Abdominal Exam: Normal Bowel Sounds. absent: Organomegaly - Rectal Exam Rectal Exam: Deferred - Extremities Exam Extremities Exam: Normal Capillary Refill. absent: Calf Tenderness - Neurological Exam Neurological Exam: Alert, Oriented x3 - Psychiatric Exam Psychiatric exam: Normal Mood - Skin Skin Exam: Dry Assessment and Plan (1) Abdominal pain Status: Acute (2) Hydroureteronephrosis Status: Acute (3) Infection associated with nephrostomy catheter Status: Acute (4) Malfunction of nephrostomy tube Status: Acute (5) Pyelonephritis, acute Status: Acute (6) HIV (human immunodeficiency virus infection) Status: Chronic
--- NOTE | 2017-08-17 22:27 | CP.PCM.PN ---
Subjective - Date & Time of Evaluation Date of Evaluation: 08/17/17 Time of Evaluation: 22:27 - Subjective Subjective: afebrile Less pain left flank s/p cysto did well, removed stent, 08/15/17 FOR OR IN AM. TO EXCHANGE NEPHROSTOMY TUBES. Objective - Vital Signs/Intake and Output Vital Signs (last 24 hours): Temp Pulse Resp BP Pulse Ox 98.4 F 90 20 126/77 96 08/17/17 15:15 08/17/17 15:15 08/17/17 15:15 08/17/17 15:15 08/17/17 15:15 - Medications Medications: Current Medications Acetaminophen (Tylenol 325mg Tab) 650 mg PO Q6 PRN PRN Reason: Fever >100.4 F Albuterol (Ventolin Hfa 90 Mcg/Actuation (8 G)) 2 puff INH Q4 PRN PRN Reason: Shortness of Breath Darunavir (Prezista) 800 mg PO DAILY [facility] Last Admin: 08/17/17 09:56 Dose: 800 mg Docusate Sodium (Colace) 100 mg PO BID [facility] Last Admin: 08/17/17 17:43 Dose: 100 mg Dolutegravir Sodium (Tivicay) 50 mg PO DAILY [facility] Last Admin: 08/17/17 09:56 Dose: 50 mg Escitalopram Oxalate (Lexapro) 5 mg PO DAILY [facility] Last Admin: 08/17/17 09:56 Dose: 5 mg Famciclovir (Famvir) 500 mg PO DAILY [facility] Last Admin: 08/17/17 09:56 Dose: 500 mg Hydromorphone HCl (Dilaudid) 4 mg IVP Q4H PRN PRN Reason: Pain, severe (8-10) Last Admin: 08/17/17 15:56 Dose: 4 mg Ciprofloxacin (Cipro 400mg/200ml Dsw) 400 mg in 200 mls @ 133 mls/hr IVPB Q12H [facility] Last Admin: 08/17/17 11:03 Dose: 133 mls/hr Meropenem 500 mg/ Sodium (Chloride) 100 mls @ 100 mls/hr IVPB Q8H [facility] Last Admin: 08/17/17 17:41 Dose: 100 mls/hr Lactulose (Enulose) 10 gm PO DAILY PRN PRN Reason: Constipation Last Admin: 08/17/17 09:56 Dose: 10 gm Loratadine (Claritin) 10 mg PO DAILY [facility] Last Admin: 08/17/17 09:56 Dose: 10 mg Metoprolol Tartrate (Lopressor) 100 mg PO [facility] Last Admin: 08/17/17 21:35 Dose: 100 mg Montelukast Sodium (Singulair) 10 mg PO [facility] Last Admin: 08/17/17 21:34 Dose: 10 mg Ondansetron HCl (Zofran Inj) 4 mg IVP Q6 PRN PRN Reason: Nausea/Vomiting Last Admin: 08/17/17 21:40 Dose: 4 mg Oxybutynin Chloride (Ditropan Xl) 5 mg PO DAILY [facility] Last Admin: 08/17/17 09:56 Dose: 5 mg Pantoprazole Sodium (Protonix Ec Tab) 40 mg PO DAILY [facility] Last Admin: 08/17/17 09:56 Dose: 40 mg Ritonavir (Norvir) 100 mg PO DAILY [facility] Last Admin: 08/17/17 09:56 Dose: 100 mg Temazepam (Restoril) 15 mg PO [facility] Last Admin: 08/17/17 22:07 Dose: Not Given - Labs Labs: 08/15/17 06:42 08/16/17 07:15 - Constitutional Appears: No Acute Distress - Head Exam Head Exam: NORMAL INSPECTION - Eye Exam Eye Exam: Normal appearance, PERRL - ENT Exam ENT Exam: Normal Oropharynx - Neck Exam Neck Exam: Normal Inspection - Respiratory Exam Respiratory Exam: Clear to Ausculation Bilateral - GI/Abdominal Exam GI & Abdominal Exam: Soft, Tenderness (lEFT FLANK.), Normal Bowel Sounds - Extremities Exam Extremities Exam: Normal Capillary Refill. absent: Calf Tenderness, Pedal Edema - Back Exam Back Exam: absent: CVA tenderness (L) - Neurological Exam Neurological Exam: Awake, CN II-XII Intact, Oriented x3 - Psychiatric Exam Psychiatric exam: Anxious - Skin Skin Exam: Normal Color, Warm Assessment and Plan (1) Complicated urinary tract infection Status: Acute (2) Bilateral hydronephrosis Status: Acute (3) Abdominal pain Status: Acute (4) HIV disease Status: Acute (5) Cancer of cervix Status: Chronic (6) Colostomy in place Status: Chronic - Assessment and Plan (Free Text) Assessment: Asssessment : -COMPLICATED UTI.-+VE PSEUDOMONAS AERUGINOSA. - LT NT. EXIT SITE -INFECTION (GP COCCI. ) -ABDOMINAL PAIN -HX OF BILATERAL HYDRONEPHROSIS S/P BILATERAL NT IN PLACE. RECENTLY CHANGED . -CA OF THE CERVIX S/P ILEOSTOMY.. -ACQUIRED IMMUNE DEFICIENCY SYNDROME.. - PRERENAL AZOTEMIA. -HX OF DVT/S/P IVC FILTER/ON ELAQUIS. -CONSTIPATION PLAN: CONTINUE iv MEROPENEM 500 MG EVERY 8 HOURLY FOR ADDED PSEUDOMONAL COVERAGE.. CONTINUE iv CIPRO 400 EVERY 12 HOURLY.08/13/17. NT-EXIT SITE +VE MSSA -S TO CIPRO. IV HYDRATION. PER -for OR IN AM fOLLOW-UP RENAL FUNCTIONS CLOSELY. PATIENT VERY ANXIOUS AND WANTS TO BE DISCHARGED ON MONDAY SHE WANTS TO BE OBSERVED POSTOPERATIVELY. WILL DISCUSS WITH ATTENDING
[2017-08-17] MEDS: Sodium Chloride 0.9% 1,000 ML IV SCH (23:50)
[2017-08-18] MEDS: Meropenem 500 MG in Sodium Chloride 0.9% 100 ML IVPB SCH ×2 (01:03→08:47)
[2017-08-18 07:29] LABS: INR 1.2; PROTHROMBIN TIME 13.7 SECONDS (9.7-12.2)
[2017-08-18 07:34] LABS: BASO % 0.2 % (0.0-2.0); EOS % 0.6 % (0.0-4.0); HEMOGLOBIN 8.9 g/dL (11.0-16.0); LYMPH % 13.8 % (20.0-40.0); MEAN CELL VOLUME 85.7 fL (81.0-99.0); MEAN CORPUSCULAR HEMOGLOBIN 28.2 pg (27.0-31.0); MEAN CORPUSCULAR HGB CONC 32.9 g/dL (33.0-37.0); MEAN PLATELET VOLUME 9.8 fL (7.2-11.7); MONO # 0.5 K/uL (0.0-0.8); MONO % 6.8 % (0.0-10.0); NEUT # 5.9 K/uL (1.8-7.0); NEUT % 78.6 % (50.0-75.0); RBC 3.15 Mil/uL (3.80-5.20); RED CELL DISTRIBUTION WIDTH 16.7 % (11.5-14.5); WHITE BLOOD COUNT 7.5 K/uL (4.8-10.8)
[2017-08-18 09:01] VITALS: BP 150/88; PULSE 83; TEMP 99; O2SAT 97
[2017-08-18] MEDS ORDERED: Midazolam 2 MG/2 ML VIAL ONE (10:05)
[2017-08-18] MEDS ORDERED: Propofol 10 mg/ml Inj (20 ML) ONE (10:06)
[2017-08-18] MEDS ORDERED: Lidocaine Hydrochloride 5 ML INJ ONE (10:07)
--- NOTE | 2017-08-18 10:07 | CON ---
DATE: 08/17/2017 FOLLOWUP: The patient had cysto and biopsy yesterday, stent removed, left nephrostomy opened, it is draining light urine. The patient going for bilateral nephrostomy change in a.m. Cece Knutson MD
[2017-08-18] MEDS: Pantoprazole 40 mg EC Tab PO SCH (10:47)
[2017-08-18] MEDS: Sodium Chloride 0.9% 1,000 ML IV SCH (10:47)
[2017-08-18] MEDS: Ciprofloxacin 400mg/200ml D5W 400 MG/200 ML BAG IVPB SCH (10:48)
--- NOTE | 2017-08-18 10:52 | PCM.SURG1 ---
Surgeon's Initial Post Op Note - Surgeon's Notes Surgeon: Benjie Cui MD Sp[employer] Con[employer] Pipe: NONE Type of Anesthesia: IV Sedation Pre-Operative Diagnosis: Ureter obstruction Operative Findings: Bilateral nephrostogram showed moderate hydronephrosis and ureteral obstruction. Post-Operative Diagnosis: Ureteral obstruction Operation Performed: Bilatera percutaneous nephrostomy tube change. Specimen/Specimens Removed: NONE Estimated Blood Loss: EBL {In ML}: 3 Blood Products Given: N/A Drains Used: No Drains Post-Op Condition: Fair Date of Surgery/Procedure: 08/18/17 Time of Surgery/Procedure: 10:50
--- NOTE | 2017-08-18 17:27 | CP.PCM.PN ---
Subjective - Date & Time of Evaluation Date of Evaluation: 08/18/17 Time of Evaluation: 16:00 - Subjective Subjective: afebrile S/P BILATERAL NEPHROSTOMY TUBES EXCHANGE BY IR . DRESSINGS IN PLACE IN THE BACK.. OFFERS NO NEW COMPLAINTS Objective - Vital Signs/Intake and Output Vital Signs (last 24 hours): Temp Pulse Resp BP Pulse Ox 99 F 83 20 150/88 97 08/18/17 09:00 08/18/17 09:00 08/18/17 09:00 08/18/17 09:00 08/18/17 09:00 Intake and Output: 08/18/17 08/18/17 06:59 18:59 Intake Total 2200 600 Output Total 1000 250 Balance 1200 350 - Medications Medications: Current Medications Acetaminophen (Tylenol 325mg Tab) 650 mg PO Q6 PRN PRN Reason: Fever >100.4 F Last Admin: 08/18/17 14:38 Dose: 650 mg Albuterol (Ventolin Hfa 90 Mcg/Actuation (8 G)) 2 puff INH Q4 PRN PRN Reason: Shortness of Breath Darunavir (Prezista) 800 mg PO DAILY [facility] Last Admin: 08/18/17 10:47 Dose: Not Given Docusate Sodium (Colace) 100 mg PO BID [facility] Last Admin: 08/18/17 10:46 Dose: Not Given Dolutegravir Sodium (Tivicay) 50 mg PO DAILY [facility] Last Admin: 08/18/17 10:48 Dose: Not Given Escitalopram Oxalate (Lexapro) 5 mg PO DAILY [facility] Last Admin: 08/18/17 10:47 Dose: Not Given Famciclovir (Famvir) 500 mg PO DAILY [facility] Last Admin: 08/18/17 10:47 Dose: Not Given Hydromorphone HCl (Dilaudid) 4 mg IVP Q4H PRN PRN Reason: Pain, severe (8-10) Last Admin: 08/18/17 12:32 Dose: 4 mg Ciprofloxacin (Cipro 400mg/200ml Dsw) 400 mg in 200 mls @ 133 mls/hr IVPB Q12H [facility] Last Admin: 08/18/17 10:48 Dose: Not Given Meropenem 500 mg/ Sodium (Chloride) 100 mls @ 100 mls/hr IVPB Q8H [facility] Last Admin: 08/18/17 08:47 Dose: 100 mls/hr Sodium Chloride (Sodium Chloride 0.9%) 1,000 mls @ 100 mls/hr IV .Q10H [facility] Last Admin: 08/18/17 10:47 Dose: Not Given Lactulose (Enulose) 10 gm PO DAILY PRN PRN Reason: Constipation Last Admin: 08/17/17 09:56 Dose: 10 gm Loratadine (Claritin) 10 mg PO DAILY [facility] Last Admin: 08/18/17 10:46 Dose: Not Given Metoprolol Tartrate (Lopressor) 100 mg PO [facility] Last Admin: 08/17/17 21:35 Dose: 100 mg Montelukast Sodium (Singulair) 10 mg PO [facility] Last Admin: 08/17/17 21:34 Dose: 10 mg Ondansetron HCl (Zofran Inj) 4 mg IVP Q6 PRN PRN Reason: Nausea/Vomiting Last Admin: 08/18/17 05:27 Dose: 4 mg Oxybutynin Chloride (Ditropan Xl) 5 mg PO DAILY [facility] Last Admin: 08/18/17 10:47 Dose: Not Given Pantoprazole Sodium (Protonix Ec Tab) 40 mg PO DAILY [facility] Last Admin: 08/18/17 10:47 Dose: Not Given Ritonavir (Norvir) 100 mg PO DAILY [facility] Last Admin: 08/18/17 10:47 Dose: Not Given Temazepam (Restoril) 15 mg PO [facility] Last Admin: 08/17/17 22:07 Dose: Not Given - Labs Labs: 08/18/17 07:16 08/18/17 07:16 PT 13.7 SECONDS (9.7-12.2) H 08/18/17 07:16 INR 1.2 08/18/17 07:16 - Constitutional Appears: No Acute Distress - Head Exam Head Exam: NORMAL INSPECTION - Eye Exam Eye Exam: EOMI, PERRL - ENT Exam ENT Exam: Normal Oropharynx - Neck Exam Neck Exam: Normal Inspection - Respiratory Exam Respiratory Exam: Clear to Ausculation Bilateral - Cardiovascular Exam Cardiovascular Exam: REGULAR RHYTHM, +S1, +S2 - Extremities Exam Extremities Exam: absent: Calf Tenderness, Pedal Edema, Tenderness - Back Exam Back Exam: absent: CVA tenderness (L), CVA tenderness (R) Additional comments: BILATERAL NEPHROSTOMY TUBES IN PLACE. dRESSING DRY. - Neurological Exam Neurological Exam: Awake, CN II-XII Intact, Normal Gait, Oriented x3, Reflexes Normal - Psychiatric Exam Psychiatric exam: Normal Mood - Skin Skin Exam: Normal Color Assessment and Plan (1) Complicated urinary tract infection Status: Acute (2) Bilateral hydronephrosis Status: Acute (3) Abdominal pain Status: Acute (4) HIV disease Status: Acute (5) Cancer of cervix Status: Chronic (6) Colostomy in place Status: Chronic - Assessment and Plan (Free Text) Assessment: Asssessment : -COMPLICATED UTI.-+VE PSEUDOMONAS AERUGINOSA. - LT NT. EXIT SITE -INFECTION (GP COCCI. ) -ABDOMINAL PAIN -HX OF BILATERAL HYDRONEPHROSIS S/P BILATERAL NT IN PLACE. RECENTLY CHANGED . -CA OF THE CERVIX S/P ILEOSTOMY.. -ACQUIRED IMMUNE DEFICIENCY SYNDROME.. - PRERENAL AZOTEMIA. -HX OF DVT/S/P IVC FILTER/ON ELAQUIS. -CONSTIPATION PLAN: May DC all antibiotics. Patient to observe herself for any fever or chills. Patient is being followed by her own PMD DR. Hobbs [facility]. INFORMED TO CALL ME IF ANY FEVER OR CHILLS OR INFORM HER MD.. PATIENT TO FOLLOW-UP WITH DR SUMMERS NEXT WEEK. CASE DISCUSSED WITH LOADING UNIT OPERATOR MS ALMA ROSA Brumfield.
--- NOTE | 2017-08-18 17:37 | CP.PCM.DIS ---
Provider - Provider Date of Admission: 08/13/17 16:32 Attending physician: Lamberto Hamilton MD Time Spent in preparation of Discharge (in minutes): 20 Diagnosis - Discharge Diagnosis (1) Abdominal pain Status: Acute (2) Hydroureteronephrosis Status: Acute (3) Infection associated with nephrostomy catheter Status: Acute (4) Malfunction of nephrostomy tube Status: Acute (5) Pyelonephritis, acute Status: Acute (6) HIV (human immunodeficiency virus infection) Status: Chronic Hospital Course - Lab Results Lab Results: Micro Results 08/14/17 14:30 Blood-Venous Blood Culture - Preliminary NO GROWTH AFTER 4 DAYS 08/14/17 14:00 Blood-Venous Blood Culture - Preliminary NO GROWTH AFTER 4 DAYS 08/14/17 14:46 Back Gram Stain - Final 08/14/17 14:46 Back Wound Culture - Final Staphylococcus Aureus 08/13/17 15:44 Urine Urine Culture - Final Pseudomonas Aeruginosa Most Recent Lab Values WBC 7.5 K/uL (4.8-10.8) 08/18/17 07:16 RBC 3.15 Mil/uL (3.80-5.20) L 08/18/17 07:16 Hgb 8.9 g/dL (11.0-16.0) L 08/18/17 07:16 Hct 27.0 % (34.0-47.0) L 08/18/17 07:16 MCV 85.7 fL (81.0-99.0) 08/18/17 07:16 MCH 28.2 pg (27.0-31.0) 08/18/17 07:16 MCHC 32.9 g/dL (33.0-37.0) L 08/18/17 07:16 RDW 16.7 % (11.5-14.5) H 08/18/17 07:16 Plt Count 155 K/uL (130-400) 08/18/17 07:16 MPV 9.8 fL (7.2-11.7) 08/18/17 07:16 Neut % (Auto) 78.6 % (50.0-75.0) H 08/18/17 07:16 Lymph % (Auto) 13.8 % (20.0-40.0) L 08/18/17 07:16 Graham % (Auto) 6.8 % (0.0-10.0) 08/18/17 07:16 Eos % (Auto) 0.6 % (0.0-4.0) 08/18/17 07:16 Baso % (Auto) 0.2 % (0.0-2.0) 08/18/17 07:16 Neut # (Auto) 5.9 K/uL (1.8-7.0) 08/18/17 07:16 Lymph # (Auto) 1.0 K/uL (1.0-4.3) 08/18/17 07:16 Graham # (Auto) 0.5 K/uL (0.0-0.8) 08/18/17 07:16 Eos # (Auto) 0.0 K/uL (0.0-0.7) 08/18/17 07:16 Baso # (Auto) 0.0 K/uL (0.0-0.2) 08/18/17 07:16 PT 13.7 SECONDS (9.7-12.2) H 08/18/17 07:16 INR 1.2 08/18/17 07:16 Sodium 140 mmol/L (132-148) 08/18/17 07:16 Potassium 4.3 mmol/L (3.6-5.2) 08/18/17 07:16 Chloride 109 mmol/L (98-107) H 08/18/17 07:16 Carbon Dioxide 20 mmol/L (22-30) L 08/18/17 07:16 Anion Gap 15 (10-20) 08/18/17 07:16 BUN 10 mg/dL (7-17) 08/18/17 07:16 Creatinine 1.6 mg/dL (0.7-1.2) H 08/18/17 07:16 Est GFR ( Amer) 40 08/18/17 07:16 Est GFR (Non-Af Amer) 33 08/18/17 07:16 Random Glucose 113 mg/dL (65-105) H 08/18/17 07:16 Calcium 8.0 mg/dl (8.6-10.4) L 08/18/17 07:16 Total Bilirubin 0.4 mg/dL (0.2-1.3) 08/14/17 06:58 AST 26 U/L (14-36) 08/14/17 06:58 ALT 18 U/L (9-52) 08/14/17 06:58 Alkaline Phosphatase 55 U/L (38-126) 08/14/17 06:58 Total Protein 6.3 g/dL (6.3-8.3) 08/14/17 06:58 Albumin 3.0 g/dL (3.5-5.0) L D 08/14/17 06:58 Globulin 3.3 gm/dL (2.2-3.9) 08/14/17 06:58 Albumin/Globulin Ratio 0.9 (1.0-2.1) L 08/14/17 06:58 Lipase 134 U/L (23-300) 08/13/17 14:38 Urine Color Yellow (YELLOW) 08/13/17 14:14 Urine Clarity Turbid (Clear) 08/13/17 14:14 Urine pH 7.0 (5.0-8.0) 08/13/17 14:14 Ur Specific Beauty 1.013 (1.003-1.030) 08/13/17 14:14 Urine Protein 2+ mg/dL (NEGATIVE) H 08/13/17 14:14 Urine Glucose (UA) Normal mg/dL (Normal) 08/13/17 14:14 Urine Ketones Negative mg/dL (NEGATIVE) 08/13/17 14:14 Urine Blood 2+ (NEGATIVE) H 08/13/17 14:14 Urine Nitrate Negative (NEGATIVE) 08/13/17 14:14 Urine Bilirubin Negative (NEGATIVE) 08/13/17 14:14 Urine Urobilinogen Normal mg/dL (0.2-1.0) 08/13/17 14:14 Ur Leukocyte Esterase 3+ Pete/uL (Negative) H 08/13/17 14:14 Urine WBC (Auto) 2237 /hpf (0-5) H 08/13/17 14:14 Urine RBC (Auto) 152 /hpf (0-3) H 08/13/17 14:14 Urine WBC Clumps (Auto) Few /hpf (NONE) H 08/13/17 14:14 Urine Bacteria Occ (<OCC) H 08/13/17 14:14 Urine Opiates Screen Negative (NEGATIVE) 08/13/17 14:14 Urine Methadone Screen Negative (NEGATIVE) 08/13/17 14:14 Ur Barbiturates Screen Negative (NEGATIVE) 08/13/17 14:14 Ur Phencyclidine Scrn Negative (NEGATIVE) 08/13/17 14:14 Ur Amphetamines Screen Negative (NEGATIVE) 08/13/17 14:14 U Benzodiazepines Scrn Negative (NEGATIVE) 08/13/17 14:14 U Oth Cocaine Metabols Negative (NEGATIVE) 08/13/17 14:14 U Cannabinoids Screen Negative (NEGATIVE) 08/13/17 14:14 Absolute Lymphs (Flow) 1695 Cells/mcL (850-3900) 08/15/17 06:42 % CD4 Cells 28 Percent (30-61) L 08/15/17 06:42 Absolute CD4 Count 469 Cells/mcL (490-1740) L 08/15/17 06:42 T-Help/Suppress Ratio 0.65 Ratio (0.86-5.00) L 08/15/17 06:42 % CD8 Cells 43 Percent (12-42) H 08/15/17 06:42 Absolute CD8 Count 721 Cells/mcL (180-1170) 08/15/17 06:42 HIV-1 RNA Qnt (RT-PCR) <1.30 not detected (<1.30) 08/15/17 06:42 - Hospital Course Hospital Course: admitted with pain, infection, treated with antibiotic, cystoscopy with removal of stent, nephrostogram with occluded ureter and hydro, nephrostomy was changed bilaterally. in addition to hydration and pain management Discharge Exam - Head Exam Head Exam: NORMAL INSPECTION - Eye Exam Eye Exam: EOMI - ENT Exam ENT Exam: Mucous Membranes Moist - Neck Exam Neck exam: Full Rom - Respiratory Exam Respiratory Exam: Clear to PA & Lateral. absent: Rales - Cardiovascular Exam Cardiovascular Exam: REGULAR RHYTHM, Systolic Murmur - GI/Abdominal Exam GI & Abdominal Exam: Normal Bowel Sounds. absent: Organomegaly - Rectal Exam Rectal Exam: Deferred - Extremities Exam Extremities exam: normal capillary refill - Neurological Exam Neurological exam: Alert, Oriented x3 - Psychiatric Exam Psychiatric exam: Normal Mood - Skin Skin Exam: Dry Discharge Plan - Follow Up Plan Condition: GOOD Disposition: HOME/ ROUTINE Instructions: Heart Failure (DC), Urinary Tract Infection in Women (DC), Nephrostomy Tube Care (DC) Additional Instructions: FOLLOW UP WITH DR. HAMILTON IN THE OFFICE IN 2-3 DAYS -- CALL FOR AN APPOINTMENT FOLLOW UP WITH DR. SUMMERS IN THE OFFICE IN ONE WEEK-- CALL FOR AN APPOINTMENT CONTINUE HOME MEDICATIONS RETURN TO ER FOR ANY WORSENING SYMPTOMS Referrals: Tiffanie Romeo MD [Staff Provider] - Cece Summers MD [Staff Provider] - Lamberto Hamilton MD [Staff Provider] -
== END 2017-08-18 17:27 | disposition home or self-care (01) | DRG 567 ==
LOC: C.ER 12:59 → C.3T 16:32
PROVIDERS: ADMIT Internal Medicine Cardiovascular Disease; ATTEND Internal Medicine Cardiovascular Disease
PROC: 0TBB8ZX Excision of Bladder, Via Natural or Artificial Opening Endoscopic, Diagnostic (ICD-10-PCS; principal; 2017-08-16 13:00)
PROC: 0T25X0Z Change Drainage Device in Kidney, External Approach (ICD-10-PCS; 2017-08-18)
DX: T83.012A Breakdown (mechanical) of nephrostomy catheter, initial encounter (principal); B20 Human immunodeficiency virus [HIV] disease; K52.0 Gastroenteritis and colitis due to radiation; I13.0 Hypertensive heart and chronic kidney disease with heart failure and stage 1 through stage 4 chronic kidney disease, or unspecified chronic kidney disease; I50.9 Heart failure, unspecified; J44.9 Chronic obstructive pulmonary disease, unspecified; N18.9 Chronic kidney disease, unspecified; N13.30 Unspecified hydronephrosis; N39.0 Urinary tract infection, site not specified; B96.5 Pseudomonas (aeruginosa) (mallei) (pseudomallei) as the cause of diseases classified elsewhere; K59.00 Constipation, unspecified; Z85.41 Personal history of malignant neoplasm of cervix uteri; Z86.718 Personal history of other venous thrombosis and embolism; Z87.891 Personal history of nicotine dependence; Z92.21 Personal history of antineoplastic chemotherapy; Z92.3 Personal history of irradiation; Z93.2 Ileostomy status; Z93.3 Colostomy status; K29.70 Gastritis, unspecified, without bleeding; E78.5 Hyperlipidemia, unspecified; R31.9 Hematuria, unspecified

== ENCOUNTER 2017-10-15 13:32 | Inpatient (IN) | payer MEDICAID ==
[2017-10-15 13:32] VITALS: BMI 26.9
[2017-10-15 13:53] VITALS: RESP 20
[2017-10-15] MEDS ORDERED: Sodium Chloride 0.9% 1,000 ML IV ONE (14:46)
[2017-10-15 15:01] LABS: BASO % 0.5 % (0.0-2.0); EOS # 0.1 K/uL (0.0-0.7); EOS % 1.4 % (0.0-4.0); HEMOGLOBIN 10.3 g/dL (11.0-16.0); LYMPH # 2.2 K/uL (1.0-4.3); MEAN CORPUSCULAR HEMOGLOBIN 27.1 pg (27.0-31.0); MEAN CORPUSCULAR HGB CONC 32.8 g/dL (33.0-37.0); MEAN PLATELET VOLUME 9.4 fL (7.2-11.7); MONO # 0.7 K/uL (0.0-0.8); NEUT # 4.9 K/uL (1.8-7.0); NEUT % 61.1 % (50.0-75.0); RBC 3.8 Mil/uL (3.80-5.20); RED CELL DISTRIBUTION WIDTH 17.4 % (11.5-14.5)
[2017-10-15 15:02] LABS: MEAN CELL VOLUME 82.5 fL (81.0-99.0)
[2017-10-15 15:06] LABS: URINE BACTERIA OCC (<OCC); URINE BILIRUBIN NEGATIVE (NEGATIVE); URINE BLOOD 2+ (NEGATIVE); URINE CLARITY Hazy (Clear); URINE COLOR Yellow (YELLOW); URINE GLUCOSE (UA) NORMAL (Normal); URINE LEUKOCYTE ESTERASE 3+ Leu/uL (Negative); URINE PROTEIN 2+ mg/dL (NEGATIVE); URINE UROBILINOGEN NORMAL mg/dL (0.2-1.0); WBC CLUMPS FEW /hpf
[2017-10-15] MEDS ORDERED: Sodium Chloride 0.9% 1,000 ML ONE (15:14)
[2017-10-15 15:35] LABS: ALB/GLOB RATIO 0.9 (1.0-2.1); ALBUMIN 3.7 g/dL (3.5-5.0); CALCIUM 8.8 mg/dl (8.6-10.4)
[2017-10-15] MEDS ORDERED: Piperacillin/Tazobact 3.375 gm 100 ML IVPB STA (15:56)
--- NOTE | 2017-10-15 16:08 | C.PDOC ---
History Of Present Illness Pt states that the color of the urine that is coming out from her b/l nephrostomy tubes changed to green. Time Seen by Provider: 10/15/17 14:32 Chief Complaint (Nursing): Female Genitourinary History Per: Patient Onset/Duration Of Symptoms: Days (2) Current Symptoms Are (Timing): Still Present Severity: Moderate Radiation Of Pain To:: Flank Quality Of Discomfort: Unable To Describe Associated Symptoms: Nausea, Back Pain, Urinary Symptoms Exacerbating Factors: None Alleviating Factors: None Additional History Per: Prior Records Past Medical History Reviewed: Historical Data, Nursing Documentation, Vital Signs Vital Signs: Last Vital Signs Temp 99.0 F 10/15/17 13:51 Pulse 86 10/15/17 13:51 Resp 20 10/15/17 13:51 BP 173/101 H 10/15/17 13:51 Pulse Ox 100 10/15/17 13:51 - Medical History PMH: Anemia, Anxiety, Arthritis, Asthma, CHF, COPD, Depression, Gastritis, HIV, HTN, Hypercholesterolemia, Hyperlipidemia, Kidney Stones, Malignancy (Cervical ( 2000), was treated with chemo and radiation.), Osteoporosis, Pancreatitis, Peripheral Edema, Chronic Kidney Disease Surgical History: Cholecystectomy, Endoscopy Other Surgeries: Hysterectomy. Colostomy. b/l nephrostomies. - [facility] Procedures CHANGE DRAINAGE DEVICE IN KIDNEY, EXTERNAL APPROACH (08/13/17) CHANGE DRAINAGE DEVICE IN URETER, EXTERNAL APPROACH (04/19/17) CYSTOSCOPY NEC (08/07/14) DILATION OF LEFT COMMON ILIAC VEIN, PERCUTANEOUS APPROACH (05/04/16) DILATION OF LEFT FEMORAL VEIN, PERCUTANEOUS APPROACH (05/04/16) EXCISION OF BLADDER, ENDO, DIAGN (08/13/17) FLUOROSCOPY OF BLADDER (09/25/16) INSERTION OF INTRALUM DEV INTO INF VENA CAVA, PERC APPROACH (05/04/16) INSERTION OF TOTALLY IMPLANTABLE VASC ACCESS DEVIC (10/02/03) INSPECTION OF BLADDER, ENDO (09/25/16) INTRAVENOUS PYELOGRAM (09/03/14) INTRODUCE OTH THROMBOLYTIC IN PERIPH VEIN, PERC (05/04/16) NEPHROSTOMY (06/26/14) PACKED CELL TRANSFUSION (11/20/14) PLAIN RADIOGRAPHY OF INFERIOR VENA CAVA USING OTHER CONTRAST (05/04/16) RADIOGRAPHY OF KIDNEY, URETER & BLADDER USING OTH CONTRAST (10/25/16) REMOV URETERAL DRAIN (09/26/14) REPLACE NEPHROSTOMY TUBE (10/31/14) RETROGRADE PYELOGRAM (01/15/15) URETERAL CATHETERIZATION (01/15/15) VAGINOSCOPY (05/30/14) VULVAR BIOPSY (02/07/14) Family History: States: Unknown Family Hx - Social History Hx Tobacco Use: No Hx Alcohol Use: No Hx Substance Use: No - Immunization History Hx Tetanus Toxoid Vaccination: Yes Hx Influenza Vaccination: Yes Hx Pneumococcal Vaccination: Yes Review Of Systems Except As Marked, All Systems Reviewed And Found Negative. Constitutional: Negative for: Fever Cardiovascular: Negative for: Chest Pain Respiratory: Negative for: Shortness of Breath Gastrointestinal: Positive for: Nausea. Negative for: Vomiting, Abdominal Pain Musculoskeletal: Positive for: Back Pain. Negative for: Neck Pain Skin: Negative for: Rash Neurological: Negative for: Weakness, Numbness Physical Exam - Physical Exam Appears: No Acute Distress, Chronically Ill Skin: Normal Color, Warm, Dry Head: Atraumatic, Normacephalic Eye(s): bilateral: PERRL, EOMI Neck: Normal ROM, Supple Chest: Other ([place] in right chest) Cardiovascular: Rhythm Regular Respiratory: Normal Breath Sounds, No Accessory Muscle Use Gastrointestinal/Abdominal: Soft, No Tenderness, Other (colostomy in place) Back: Other (b/l nephrostomy tubes draining green colored cloudy urine.) Extremity: Normal ROM Neurological/Psych: Oriented x3, Normal Motor, Normal Sensation ED Course And Treatment - Laboratory Results Result Diagrams: 10/15/17 14:56 10/15/17 14:56 Interpretation Of Abnormal: UTI. Renal insufficiency. O2 Sat by Pulse Oximetry: 100 Pulse Ox Interpretation: Normal Progress - Interventions Interventions:: Observation, Intravenous fluid - Medications Administered Intravenous: Antiemetic, Other (Abx) - Data Reviewed Data Reviewed: Lab, Old records - Patient Status Patient status: Partially improved - Continuity of Care Discussed patient case with:: Patient, ED Nurse, On-call PMD-pt unassigned - Patient Plan Patient Plan: Admission Disposition Discussed With : Agustin Ramirez Comment: He accepted pt on hospitalist service. Doctor Will See Patient In The: Hospital Counseled Patient/Family Regarding: Studies Performed, Diagnosis - Disposition Disposition: HOSPITALIZED Disposition Time: 16:11 Condition: GUARDED - POA Present On Arrival: Cath Associated UTI - Clinical Impression Clinical Impression: Complicated urinary tract infection, Urinary tract infection associated with nephrostomy catheter
[2017-10-15] MEDS ORDERED: Piperacillin/Tazobact 3.375 gm 100 ML IVPB ONE (16:26)
--- NOTE | 2017-10-15 16:40 | CP.PCM.HP ---
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 Patient presents to the ED for green discharge from bilateral nephrosotomy tubes that started 2 days prior to admission. She admitted to left sided flank pain, sharp, intermittent that started 2 days ago. Denied any associated fever, chills, nausea, vomiting, change in stool formation, or dysuria. She recently had her bilateral tubes changed by Dr. Cui on 08/18/17 - she has them changed [id number] or earlier if they become obstructed. Currently she admits so some left sided flank pain and nausea. She has been able to tolerate her diet and ambulates without assistance. She reviews a visiting nurse every Monday and Monday of the week to change her nephrostomy tube dresses. She empties the bags daily. She changes her ileostomy bag every 2-3 days, emptying it ever day. 12 point ROS unremarkable unless otherwise noted. PMHx: Noted as above PSHx: Noted as above Meds: As per SEP, reviewed and confirmed All: aloe vera, sulfa- rash SHx: Used to smoke 5 cigarettes per day x 2-3 years quit 2000, denied ETOH, or illicit drug use FHx: Mother of colon CA 60s, father bone cancer 80s, sister and brother of MIs PMD/ ID: Dr. Nichole Urology: Mouded Cardio: Vazquez Present on Admission - Present on Admission Any Indicators Present on Admission: No Past Patient History - Infectious Disease Hx of Infectious Diseases: None - Past Medical History & Family History Past Medical History?: Yes - Past Social History Smoking Status: Never Smoked - CARDIAC Hx Congestive Heart Failure: Yes Hx Hypercholesterolemia: Yes Hx Hypertension: Yes Hx Peripheral Edema: Yes - PULMONARY Hx Asthma: Yes Hx Chronic Obstructive Pulmonary Disease (COPD): Yes - NEUROLOGICAL Hx Paralysis: No - HEENT Hx HEENT Problems: Yes Hx Cataracts: Yes (BILATERAL) - RENAL Hx Chronic Kidney Disease: Yes Hx Kidney Stones: Yes - ENDOCRINE/METABOLIC Hx Endocrine Disorders: No - HEMATOLOGICAL/ONCOLOGICAL Hx Anemia: Yes Hx Human Immunodeficiency Virus (HIV): Yes - INTEGUMENTARY Hx Dermatological Problems: No - MUSCULOSKELETAL/RHEUMATOLOGICAL Hx Arthritis: Yes Hx Osteoporosis: Yes - GASTROINTESTINAL Hx Gastritis: Yes Hx Pancreatitis: Yes - GENITOURINARY/GYNECOLOGICAL Other/Comment: NEPHROSTOMY TUBES. colostomy - PSYCHIATRIC Hx Anxiety: Yes Hx Depression: Yes Hx Substance Use: No - SURGICAL HISTORY Hx Cholecystectomy: Yes - ANESTHESIA Hx Anesthesia Reactions: No Hx Malignant Hyperthermia: No Meds Allergies/Adverse Reactions: Allergies Allergy/AdvReac Type Severity Reaction Status Date / Time aloe vera Allergy Severe ITCHING Verified 10/15/17 13:54 Sulfa (Sulfonamide Allergy Severe ITCHING Verified 10/15/17 13:54 Antibiotics) sulfamethoxazole Allergy Severe ITCHING Verified 10/15/17 13:54 [From Bactrim] Physical Exam - Constitutional Appears: No Acute Distress, Chronically Ill - Head Exam Head Exam: NORMAL INSPECTION, NORMOCEPHALIC - Eye Exam Eye Exam: EOMI, Normal appearance, PERRL Pupil Exam: NORMAL ACCOMODATION - ENT Exam ENT Exam: Mucous Membranes Moist Additional comments: NO ORAL THRUSH NOTED - Neck Exam Neck exam: Positive for: Normal Inspection - Respiratory Exam Respiratory Exam: Clear to Auscultation Bilateral, NORMAL BREATHING PATTERN. absent: Decreased Breath Sounds - Cardiovascular Exam Cardiovascular Exam: REGULAR RHYTHM - GI/Abdominal Exam GI & Abdominal Exam: Normal Bowel Sounds, Soft. absent: Distended, Tenderness Additional comments: ileostomy stoma pink, bag is empty (recently changed), area is c/d/i - very well maintained - Rectal Exam Rectal Exam: Deferred - Extremities Exam Extremities exam: Positive for: normal inspection, pedal pulses present. Negative for: pedal edema, tenderness - Back Exam Back exam: CVA tenderness (L) Additional comments: bilateral nephrostomy dressings c/d/i - greenish discharge seen in tubing and nephrostomy bags - Neurological Exam Neurological exam: Alert, CN II-XII Intact, Oriented x3 - Psychiatric Exam Psychiatric exam: Normal Affect, Normal Mood - Skin Skin Exam: Dry, Intact, Normal Color, Warm Results - Vital Signs Recent Vital Signs: Last Vital Signs Temp 99.0 F 10/15/17 13:51 Pulse 86 10/15/17 13:51 Resp 20 10/15/17 13:51 BP 173/101 H 10/15/17 13:51 Pulse Ox 100 10/15/17 16:12 - Labs Result Diagrams: 10/15/17 14:56 10/15/17 14:56 Labs: Laboratory Results - last 24 hr 10/15/17 10/15/17 10/15/17 14:56 14:56 14:56 WBC 8.0 RBC 3.80 Hgb 10.3 L Hct 31.4 L MCV 82.5 D MCH 27.1 MCHC 32.8 L RDW 17.4 H Plt Count 180 MPV 9.4 Neut % (Auto) 61.1 Lymph % (Auto) 28.0 [place] % (Auto) 9.0 Eos % (Auto) 1.4 Baso % (Auto) 0.5 Neut # (Auto) 4.9 Lymph # (Auto) 2.2 [place] # (Auto) 0.7 Eos # (Auto) 0.1 Baso # (Auto) 0.0 Sodium 142 Potassium 4.3 Chloride 106 Carbon Dioxide 23 Anion Gap 17 BUN 25 H Creatinine 1.5 H Est GFR ( Amer) 43 Est GFR (Non-Af Amer) 35 Random Glucose 107 H Calcium 8.8 Total Bilirubin 0.6 AST 21 ALT 22 Alkaline Phosphatase 64 Total Protein 7.7 Albumin 3.7 Globulin 4.0 H Albumin/Globulin Ratio 0.9 L Lipase 192 Urine Color Yellow Urine Clarity Hazy Urine pH 6.0 Ur Specific [place] 1.011 Urine Protein 2+ H Urine Glucose (UA) Normal Urine Ketones Negative Urine Blood 2+ H Urine Nitrate Positive H Urine Bilirubin Negative Urine Urobilinogen Normal Ur Leukocyte Esterase 3+ H Urine WBC (Auto) 385 H Urine RBC (Auto) 53 H Urine WBC Clumps (Auto) Few H Urine Bacteria Occ H Assessment & Plan - Assessment and Plan (Free Text) Assessment: is a 62 year old Female with PMHx of HIV with last CD4 470, viral load undetectable (08/2017), Cervical CA s/p chemotherapy and radiation 2000, 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 Admitted for complicated UTI, previous admission 08/13/17 she had + pseudo in urine culture. Plan: Bilateral Chronic Hydronephrosis Bilateral Nephrostomy Tubes Complicated UTI CKD Stage 3B Urology consulted - Dr. Garza ID consulted: Dr. Mitzy Romeo (who saw pt on previous admission) Patient will need to follow up with a [facility] as outpatient to monitor renal function (will refer to Dr. Nelson) As per Dr. Cui - will only need change of tubes if obstructive, not 2/2 infection Previous admission 08/2017 UC grew pseudomonas F/U UC Imaging: F/U renal US Meds: LR @ 100cc/hr Cipro 400 Q12, Meropenem Q8H Toradol PRN Florastor HTN Resumed home meds: metoprolol and cozaar (we do not have Valsartan) Asthma Resumed home meds: singular HIV Resume HIV meds, patient is compliant Last CD4- 470, viral load- undetectable 08/2017 Patient follows up with Dr. Nichole Q3 months to monitor, next appt is 01/2018 Hx Depression Resumed lexapro Hx DVT Resumed eliquis Diagnosed in April 2017 Will need to follow up with Cardio Dr. Vazquez to determine end date Hx Overactive Bladder Resumed Oxybutynin Hx Insomnia Resumed Restoril Hx GERD Anemia of Chronic Disease Hx Thrombectomy from femoral vein S/P IVC filter Hx Cervical CA Hx Radiation Enteritis leading to Ileostomy Prophylactic Measures GI / DVT PPX DW Angi Alfred DO, PGY-1 <Rock Barahona - Last Filed: 10/15/17 21:40> Results - Vital Signs Recent Vital Signs: Last Vital Signs Temp 98.5 F 10/15/17 17:07 Pulse 85 10/15/17 17:07 Resp 20 10/15/17 17:07 BP 176/80 H 10/15/17 17:07 Pulse Ox 98 10/15/17 17:07 - Labs Result Diagrams: 10/15/17 14:56 10/15/17 14:56 Labs: Laboratory Results - last 24 hr 10/15/17 10/15/17 10/15/17 14:56 14:56 14:56 WBC 8.0 RBC 3.80 Hgb 10.3 L Hct 31.4 L MCV 82.5 D MCH 27.1 MCHC 32.8 L RDW 17.4 H Plt Count 180 MPV 9.4 Neut % (Auto) 61.1 Lymph % (Auto) 28.0 [place] % (Auto) 9.0 Eos % (Auto) 1.4 Baso % (Auto) 0.5 Neut # (Auto) 4.9 Lymph # (Auto) 2.2 [place] # (Auto) 0.7 Eos # (Auto) 0.1 Baso # (Auto) 0.0 Sodium 142 Potassium 4.3 Chloride 106 Carbon Dioxide 23 Anion Gap 17 BUN 25 H Creatinine 1.5 H Est GFR ( Amer) 43 Est GFR (Non-Af Amer) 35 Random Glucose 107 H Calcium 8.8 Total Bilirubin 0.6 AST 21 ALT 22 Alkaline Phosphatase 64 Total Protein 7.7 Albumin 3.7 Globulin 4.0 H Albumin/Globulin Ratio 0.9 L Lipase 192 Urine Color Yellow Urine Clarity Hazy Urine pH 6.0 Ur Specific [place] 1.011 Urine Protein 2+ H Urine Glucose (UA) Normal Urine Ketones Negative Urine Blood 2+ H Urine Nitrate Positive H Urine Bilirubin Negative Urine Urobilinogen Normal Ur Leukocyte Esterase 3+ H Urine WBC (Auto) 385 H Urine RBC (Auto) 53 H Urine WBC Clumps (Auto) Few H Urine Bacteria Occ H Attending/Attestation - Attestation I have personally seen and examined this patient.: Yes I have fully participated in the care of the patient.: Yes I have reviewed all pertinent clinical information: Yes Notes (Text): 10/15/17 21:40 Patient was seen and examined with Resident Dr. Duncan History, Physical, Assessment and Plan were gone over in detail with Dr. Dnucan. Rock Barahona D.O.
[2017-10-15] MEDS: Lactated Ringer's 1,000 ML IV SCH (17:47)
[2017-10-15] MEDS: Saccharomyces Boulardi 250 mg Cap PO SCH (17:49)
[2017-10-15] MEDS: Oxycodone/Acetaminophen 5/325 mg Tab PO PRN (20:14)
[2017-10-15] MEDS: Meropenem 500 MG in Sodium Chloride 0.9% 100 ML IVPB SCH (22:25)
[2017-10-16] MEDS: Lactated Ringer's 1,000 ML IV SCH ×3 (03:00→22:28)
[2017-10-16] MEDS ORDERED: Morphine 4 MG/ML VIAL IVP ONE ×2 (04:05→22:56)
[2017-10-16] MEDS: Ciprofloxacin 400mg/200ml D5W 400 MG/200 ML BAG IVPB SCH ×2 (04:43→15:37)
[2017-10-16] MEDS: Meropenem 500 MG in Sodium Chloride 0.9% 100 ML IVPB SCH ×3 (05:58→21:37)
[2017-10-16 06:19] LABS: BASO % 0.4 % (0.0-2.0); EOS # 0.1 K/uL (0.0-0.7); HEMOGLOBIN 9.9 g/dL (11.0-16.0); LYMPH # 1.4 K/uL (1.0-4.3); LYMPH % 21.3 % (20.0-40.0); MEAN CELL VOLUME 82.7 fL (81.0-99.0); MEAN CORPUSCULAR HEMOGLOBIN 27.1 pg (27.0-31.0); MEAN CORPUSCULAR HGB CONC 32.8 g/dL (33.0-37.0); MEAN PLATELET VOLUME 9.5 fL (7.2-11.7); MONO # 0.6 K/uL (0.0-0.8); MONO % 9.1 % (0.0-10.0); NEUT # 4.6 K/uL (1.8-7.0); NEUT % 67.2 % (50.0-75.0); RBC 3.66 Mil/uL (3.80-5.20); RED CELL DISTRIBUTION WIDTH 16.9 % (11.5-14.5); WHITE BLOOD COUNT 6.8 K/uL (4.8-10.8)
[2017-10-16 06:39] LABS: ALB/GLOB RATIO 0.9 (1.0-2.1); ALBUMIN 3.2 g/dL (3.5-5.0); CALCIUM 8.5 mg/dl (8.6-10.4)
[2017-10-16] MEDS ORDERED: Oxybutynin XL 10 mg Tab PO SCH (10:00)
[2017-10-16] MEDS: Saccharomyces Boulardi 250 mg Cap PO SCH ×2 (10:01→17:53)
[2017-10-16] MEDS: Pantoprazole 40 mg EC Tab PO SCH (10:02)
--- NOTE | 2017-10-16 10:03 | US ---
Renal ultrasound History: Bilateral nephrostomy tubes. Urinary tract infection. Comparison: Renal ultrasound dated 08/13/2017 Technique: Real-time sonography was performed through the kidneys. Findings: Right kidney: 10.9 x 4.3 x 5.1 centimeters. Mild increased echogenicity of the renal parenchymal cortex suggestive for medical renal disease. Nephrostomy tube in place. Mild fullness versus mild hydronephrosis of the right renal collecting system. Left Kidney: 10.4 x 4.5 x 4.7 centimeters. Mild increased echogenicity of the renal parenchymal cortex suggestive for medical renal disease. Nephrostomy tube in place. Mild fullness versus mild hydronephrosis of the left renal collecting system. Limited visualization of the aorta which appears grossly preserved. Urinary bladder is collapsed, limiting evaluation. Impression: Bilateral nephrostomy tubes in place. Increased echogenicity of the bilateral renal parenchymal cortices suggestive for medical renal disease. Mild fullness versus mild hydronephrosis of the bilateral renal collecting systems. Clinical correlation.
[2017-10-16] MEDS: Oxycodone/Acetaminophen 5/325 mg Tab PO PRN (10:04)
--- NOTE | 2017-10-16 11:55 | CP.PCM.CON ---
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 Patient presents to the ED for green discharge from bilateral nephrosotomy tubes that started 2 days prior to admission. She admitted to left sided flank pain, sharp, intermittent that started 2 days ago. Denied any associated fever, chills, nausea, vomiting, change in stool formation, or dysuria. She recently had her bilateral tubes changed by Dr. Cui on 08/18/17 - she has them changed [id number] or earlier if they become obstructed. Currently she admits so some left sided flank pain and nausea. She has been able to tolerate her diet and ambulates without assistance. She reviews a visiting nurse every Monday and Monday of the week to change her nephrostomy tube dresses. She empties the bags daily. She changes her ileostomy bag every 2-3 days, emptying it ever day. Patient is presently on TIVICAY. Norvir, Prezista HAART therapy and is very compliant with her medications. 12 point ROS unremarkable unless otherwise noted. PMHx: Noted as above PSHx: Noted as above Meds: As per SEP, reviewed and confirmed All: aloe vera, sulfa- rash SHx: Used to smoke 5 cigarettes per day x 2-3 years quit 2000, denied ETOH, or illicit drug use FHx: Mother of colon CA 60s, father bone cancer 80s, sister and brother of MIs PMD/ ID: Dr. Nichole Urology: Mouded Cardio: George Review of Systems - Constitutional Constitutional: absent: Chills (or rhonchi [place] and: But thousand any medical management will initiate antibiotic event MrsLeticia Wound week in the), Fever - EENT Eyes: absent: Change in Vision, Floaters Nose/Mouth/Throat: absent: Mouth Lesions, Odynophagia - Cardiovascular Cardiovascular: absent: Chest Pain, Dyspnea - Respiratory Respiratory: absent: Cough, Chest Congestion - Gastrointestinal Gastrointestinal: Abdominal Pain (left flank pain.), Nausea. absent: Diarrhea, Vomiting - Genitourinary Genitourinary: Flank Pain (left side more than right), Pyuria, Freq UTI, Hx / Renal Surgery (bilateral urinary stents external with greenish urine.) - Menstruation Menstruation: S/P Hysterectomy - Musculoskeletal Musculoskeletal: Back Pain - Neurological Neurological: Headaches (history of migraine headaches.) - Hematologic/Lymphatic Hematologic: As Per HPI. absent: Easy Bleeding, Easy Bruising Past Patient History - Infectious Disease Hx of Infectious Diseases: None - Past Medical History & Family History Past Medical History?: Yes - Past Social History Smoking Status: Former Smoker - CARDIAC Hx Congestive Heart Failure: Yes Hx Hypercholesterolemia: Yes Hx Hypertension: Yes Hx Peripheral Edema: Yes - PULMONARY Hx Asthma: Yes Hx Chronic Obstructive Pulmonary Disease (COPD): Yes - NEUROLOGICAL Hx Neurological Disorder: No Hx Paralysis: No - HEENT Hx HEENT Problems: Yes Hx Cataracts: Yes (BILATERAL) - RENAL Hx Chronic Kidney Disease: Yes Hx Kidney Stones: Yes Other/Comment: B/L nephrosotomy tubes - ENDOCRINE/METABOLIC Hx Endocrine Disorders: No - HEMATOLOGICAL/ONCOLOGICAL Hx Anemia: Yes Hx Human Immunodeficiency Virus (HIV): Yes - INTEGUMENTARY Hx Dermatological Problems: No - MUSCULOSKELETAL/RHEUMATOLOGICAL Hx Arthritis: Yes Hx Falls: No Hx Osteoporosis: Yes - GASTROINTESTINAL Hx Colostomy: Yes (LLQ) Hx Gastritis: Yes Hx Pancreatitis: Yes - GENITOURINARY/GYNECOLOGICAL Other/Comment: NEPHROSTOMY TUBES - PSYCHIATRIC Hx Anxiety: Yes Hx Depression: Yes Hx Substance Use: No - SURGICAL HISTORY Hx Cholecystectomy: Yes Hx Hysterectomy: Yes - ANESTHESIA Hx Anesthesia Reactions: No Hx Malignant Hyperthermia: No Meds Allergies/Adverse Reactions: Allergies Allergy/AdvReac Type Severity Reaction Status Date / Time aloe vera Allergy Severe ITCHING Verified 10/15/17 13:54 Sulfa (Sulfonamide Allergy Severe ITCHING Verified 10/15/17 13:54 Antibiotics) sulfamethoxazole Allergy Severe ITCHING Verified 10/15/17 13:54 [From Bactrim] - Medications Medications: Current Medications Apixaban (Eliquis) 5 mg PO BID [facility] Last Admin: 10/16/17 10:01 Dose: 5 mg Darunavir (Prezista) 800 mg PO DAILY [facility] PRN Reason: Protocol Last Admin: 10/16/17 10:02 Dose: 800 mg Dolutegravir Sodium (Tivicay) 50 mg PO DAILY [facility] PRN Reason: Protocol Last Admin: 10/16/17 10:02 Dose: 50 mg Escitalopram Oxalate (Lexapro) 5 mg PO DAILY [facility] Last Admin: 10/16/17 10:02 Dose: 5 mg Famciclovir (Famvir) 500 mg PO DAILY [facility] PRN Reason: Protocol Last Admin: 10/16/17 10:01 Dose: 500 mg Ciprofloxacin (Cipro 400mg/200ml Dsw) 400 mg in 200 mls @ 133 mls/hr IVPB Q12H [facility] PRN Reason: Protocol Last Admin: 10/16/17 04:43 Dose: 133 mls/hr Lactated Ringer's (Lactated Ringer's) 1,000 mls @ 100 mls/hr IV .Q10H [facility] Last Admin: 10/16/17 03:00 Dose: Not Given Meropenem 500 mg/ Sodium (Chloride) 100 mls @ 100 mls/hr IVPB Q8 [facility] PRN Reason: Protocol Last Admin: 10/16/17 05:58 Dose: 100 mls/hr Ibuprofen (Motrin Tab) 400 mg PO PRN PRN PRN Reason: Pain, Mild (1-3) Losartan Potassium (Cozaar) 100 mg PO DAILY [facility] Last Admin: 10/16/17 10:01 Dose: 100 mg Metoprolol Tartrate (Lopressor) 100 mg PO HS [facility] Last Admin: 10/15/17 22:25 Dose: 100 mg Montelukast Sodium (Singulair) 10 mg PO QPM [facility] Last Admin: 10/15/17 17:49 Dose: 10 mg Ondansetron HCl (Zofran Inj) 4 mg IVP Q6H PRN PRN Reason: Nausea/Vomiting Oxybutynin Chloride (Ditropan Xl) 5 mg PO DAILY [facility] Oxycodone/Acetaminophen (Percocet 5/325 Mg Tab) 1 tab PO Q6H PRN PRN Reason: Pain, severe (8-10) Stop: 10/18/17 19:37 Last Admin: 10/16/17 10:04 Dose: 1 tab Pantoprazole Sodium (Protonix Ec Tab) 40 mg PO DAILY [facility] Last Admin: 10/16/17 10:02 Dose: 40 mg Ritonavir (Norvir) 100 mg PO DAILY [facility] PRN Reason: Protocol Last Admin: 10/16/17 10:02 Dose: 100 mg Saccharomyces Boulardii (Florastor) 250 mg PO BID [facility] Last Admin: 10/16/17 10:01 Dose: 250 mg Temazepam (Restoril) 15 mg PO HS [facility] Last Admin: 10/15/17 22:25 Dose: 15 mg Physical Exam - Constitutional Appears: No Acute Distress - Head Exam Head Exam: NORMAL INSPECTION - Eye Exam Eye Exam: EOMI, PERRL - ENT Exam ENT Exam: Normal Oropharynx - Neck Exam Neck exam: Positive for: Normal Inspection - Respiratory Exam Respiratory Exam: Clear to Auscultation Bilateral - Cardiovascular Exam Cardiovascular Exam: REGULAR RHYTHM, +S1, +S2 - GI/Abdominal Exam GI & Abdominal Exam: Normal Bowel Sounds (+VE COLOSTOMY IN PLACE), Soft, Tenderness (left flank.). absent: Guarding - Extremities Exam Extremities exam: Positive for: pedal pulses present. Negative for: calf tenderness, pedal edema - Back Exam Back exam: CVA tenderness (L). absent: CVA tenderness (R) - Neurological Exam Neurological exam: Alert, CN II-XII Intact, Oriented x3, Reflexes Normal - Psychiatric Exam Psychiatric exam: Normal Mood - Skin Skin Exam: Normal Color, Warm Results - Vital Signs Recent Vital Signs: Last Vital Signs Temp 98.1 F 10/16/17 07:56 Pulse 80 10/16/17 07:56 Resp 20 10/16/17 07:56 BP 154/88 H 10/16/17 07:56 Pulse Ox 95 10/16/17 07:56 - Labs Result Diagrams: 10/16/17 06:09 10/16/17 06:09 Labs: Laboratory Results - last 24 hr 10/15/17 10/15/17 10/15/17 14:56 14:56 14:56 WBC 8.0 RBC 3.80 Hgb 10.3 L Hct 31.4 L MCV 82.5 D MCH 27.1 MCHC 32.8 L RDW 17.4 H Plt Count 180 MPV 9.4 Neut % (Auto) 61.1 Lymph % (Auto) 28.0 [place] % (Auto) 9.0 Eos % (Auto) 1.4 Baso % (Auto) 0.5 Neut # (Auto) 4.9 Lymph # (Auto) 2.2 [place] # (Auto) 0.7 Eos # (Auto) 0.1 Baso # (Auto) 0.0 Sodium 142 Potassium 4.3 Chloride 106 Carbon Dioxide 23 Anion Gap 17 BUN 25 H Creatinine 1.5 H Est GFR ( Amer) 43 Est GFR (Non-Af Amer) 35 Random Glucose 107 H Calcium 8.8 Total Bilirubin 0.6 AST 21 ALT 22 Alkaline Phosphatase 64 Total Protein 7.7 Albumin 3.7 Globulin 4.0 H Albumin/Globulin Ratio 0.9 L Lipase 192 Urine Color Yellow Urine Clarity Hazy Urine pH 6.0 Ur Specific [place] 1.011 Urine Protein 2+ H Urine Glucose (UA) Normal Urine Ketones Negative Urine Blood 2+ H Urine Nitrate Positive H Urine Bilirubin Negative Urine Urobilinogen Normal Ur Leukocyte Esterase 3+ H Urine WBC (Auto) 385 H Urine RBC (Auto) 53 H Urine WBC Clumps (Auto) Few H Urine Bacteria Occ H 10/16/17 10/16/17 06:09 06:09 WBC 6.8 RBC 3.66 L Hgb 9.9 L Hct 30.2 L MCV 82.7 MCH 27.1 MCHC 32.8 L RDW 16.9 H Plt Count 145 MPV 9.5 Neut % (Auto) 67.2 Lymph % (Auto) 21.3 [place] % (Auto) 9.1 Eos % (Auto) 2.0 Baso % (Auto) 0.4 Neut # (Auto) 4.6 Lymph # (Auto) 1.4 [place] # (Auto) 0.6 Eos # (Auto) 0.1 Baso # (Auto) 0.0 Sodium 141 Potassium 4.3 Chloride 108 H Carbon Dioxide 23 Anion Gap 14 BUN 21 H Creatinine 1.4 H Est GFR ( Amer) 46 Est GFR (Non-Af Amer) 38 Random Glucose 90 Calcium 8.5 L Total Bilirubin 0.7 AST 21 ALT 17 Alkaline Phosphatase 57 Total Protein 6.7 Albumin 3.2 L Globulin 3.5 Albumin/Globulin Ratio 0.9 L Lipase Urine Color Urine Clarity Urine pH Ur Specific [place] Urine Protein Urine Glucose (UA) Urine Ketones Urine Blood Urine Nitrate Urine Bilirubin Urine Urobilinogen Ur Leukocyte Esterase Urine WBC (Auto) Urine RBC (Auto) Urine WBC Clumps (Auto) Urine Bacteria Assessment & Plan - Assessment and Plan (Free Text) Assessment: Asssessment : -COMPLICATED UTI.- GNR (URINE+VE ON CULTURE ) -ABDOMINAL PAIN -HX OF BILATERAL HYDRONEPHROSIS S/P BILATERAL NT IN PLACE. RECENTLY CHANGED -CA OF THE CERVIX S/P ILEOSTOMY.. -ACQUIRED IMMUNE DEFICIENCY SYNDROME.. - PRERENAL AZOTEMIA. -HX OF DVT/S/P IVC FILTER/ON ELAQUIS. -CONSTIPATION PLAN: BLOOD CULTURES 2 -P FOLLOW-UP URINE CULTURES FOR IDENTIFICATION AND WILL ADJUST ANTIBIOTICS. ON iv MEROPENEM 500 MG EVERY 8 HOURLY FOR ADDED PSEUDOMONAL COVERAGE.10/15/17. CONTINUE iv CIPRO 400 EVERY 12 HOURLY.10/15/17. IV HYDRATION. INCREASE BY MOUTH INTAKE PATIENT NOT DRINKING AND EATING APPROPRIATELY. fOLLOW-UP CULTURES TO ADJUST ANTIBIOTICS. fOLLOW-UP RENAL FUNCTIONS CLOSELY. PER /IR CASE DISCUSSED WITH DR Chin MCHUGH. PATIENT TO FOLLOW-UP WITH NEPHROLOGY OUTPATIENT FOR CHRONIC RENAL INSUFFICIENCY. WILL FOLLOW ALONG WITH YOU AND MAKE RECOMMENDATIONS NEEDED. THANK YOU.
--- NOTE | 2017-10-16 17:06 | CP.PCM.PN ---
Subjective - Date & Time of Evaluation Date of Evaluation: 10/16/17 Time of Evaluation: 07:03 - Subjective Subjective: PGY1 Medicine Note for Dr. Shah Patient seen and examined at bedside this morning. No acute events overnight. Patient states she is no longer experiencing chills. She is still experiencing green discharge, but it has been becoming more clear since starting the antibiotics. She is still experiencing mild right sided flank pain but the pain is much better today. Denies fevers, chills, nausea, vomiting, diarrhea, constipation, chest pain, shortness of breath, headaches. Objective - Vital Signs/Intake and Output Vital Signs (last 24 hours): Temp Pulse Resp BP Pulse Ox 98.2 F 81 20 135/80 97 10/16/17 15:15 10/16/17 15:15 10/16/17 15:15 10/16/17 15:15 10/16/17 15:15 Intake and Output: 10/16/17 10/16/17 06:59 18:59 Intake Total 920 1600 Output Total 850 Balance 70 1600 - Medications Medications: Current Medications Apixaban (Eliquis) 5 mg PO BID [facility] Last Admin: 10/16/17 10:01 Dose: 5 mg Darunavir (Prezista) 800 mg PO DAILY [facility] PRN Reason: Protocol Last Admin: 10/16/17 10:02 Dose: 800 mg Dolutegravir Sodium (Tivicay) 50 mg PO DAILY [facility] PRN Reason: Protocol Last Admin: 10/16/17 10:02 Dose: 50 mg Escitalopram Oxalate (Lexapro) 5 mg PO DAILY [facility] Last Admin: 10/16/17 10:02 Dose: 5 mg Famciclovir (Famvir) 500 mg PO DAILY [facility] PRN Reason: Protocol Last Admin: 10/16/17 10:01 Dose: 500 mg Ciprofloxacin (Cipro 400mg/200ml Dsw) 400 mg in 200 mls @ 133 mls/hr IVPB Q12H [facility] PRN Reason: Protocol Last Admin: 10/16/17 15:37 Dose: 133 mls/hr Lactated Ringer's (Lactated Ringer's) 1,000 mls @ 100 mls/hr IV .Q10H [facility] Last Admin: 10/16/17 12:53 Dose: 100 mls/hr Meropenem 500 mg/ Sodium (Chloride) 100 mls @ 100 mls/hr IVPB Q8 [facility] PRN Reason: Protocol Last Admin: 10/16/17 14:57 Dose: 100 mls/hr Ibuprofen (Motrin Tab) 400 mg PO PRN PRN PRN Reason: Pain, Mild (1-3) Losartan Potassium (Cozaar) 100 mg PO DAILY [facility] Last Admin: 10/16/17 10:01 Dose: 100 mg Metoprolol Tartrate (Lopressor) 100 mg PO HS [facility] Last Admin: 10/15/17 22:25 Dose: 100 mg Montelukast Sodium (Singulair) 10 mg PO QPM [facility] Last Admin: 10/15/17 17:49 Dose: 10 mg Ondansetron HCl (Zofran Inj) 4 mg IVP Q6H PRN PRN Reason: Nausea/Vomiting Last Admin: 10/16/17 12:51 Dose: 4 mg Oxybutynin Chloride (Ditropan Xl) 5 mg PO DAILY [facility] Last Admin: 10/16/17 14:57 Dose: 5 mg Oxycodone/Acetaminophen (Percocet 5/325 Mg Tab) 1 tab PO Q6H PRN PRN Reason: Pain, severe (8-10) Stop: 10/18/17 19:37 Last Admin: 10/16/17 10:04 Dose: 1 tab Pantoprazole Sodium (Protonix Ec Tab) 40 mg PO DAILY [facility] Last Admin: 10/16/17 10:02 Dose: 40 mg Ritonavir (Norvir) 100 mg PO DAILY [facility] PRN Reason: Protocol Last Admin: 10/16/17 10:02 Dose: 100 mg Saccharomyces Boulardii (Florastor) 250 mg PO BID [facility] Last Admin: 10/16/17 10:01 Dose: 250 mg Temazepam (Restoril) 15 mg PO HS [facility] Last Admin: 10/15/17 22:25 Dose: 15 mg - Labs Labs: 10/16/17 06:09 10/16/17 06:09 - Constitutional Appears: Non-toxic, No Acute Distress - Head Exam Head Exam: ATRAUMATIC, NORMOCEPHALIC - Eye Exam Eye Exam: EOMI - ENT Exam ENT Exam: Mucous Membranes Moist - Respiratory Exam Respiratory Exam: Clear to Ausculation Bilateral, NORMAL BREATHING PATTERN. absent: Accessory Muscle Use, Respiratory Distress - Cardiovascular Exam Cardiovascular Exam: REGULAR RHYTHM, +S1, +S2 - GI/Abdominal Exam GI & Abdominal Exam: Soft, Normal Bowel Sounds. absent: Distended, Firm, Guarding, Rigid Additional comments: ileostomy stoma pink, bag is empty (recently changed), area is c/d/i - very well maintained - Extremities Exam Extremities Exam: absent: Calf Tenderness, Pedal Edema - Back Exam Back Exam: CVA tenderness (R). absent: CVA tenderness (L) Additional comments: bilateral nephrostomy dressings c/d/i - greenish discharge seen in tubing and nephrostomy bags - Neurological Exam Neurological Exam: Alert, Awake, CN II-XII Intact, Oriented x3 - Psychiatric Exam Psychiatric exam: Normal Affect, Normal Mood - Skin Skin Exam: Dry, Warm Assessment and Plan - Assessment and Plan (Free Text) Plan: Bilateral Chronic Hydronephrosis Bilateral Nephrostomy Tubes Complicated UTI CKD Stage 3B Urology consulted - Dr. Graza ID consulted: Dr. Mitzy Romeo (who saw pt on previous admission) Patient will need to follow up with a [employer] as outpatient to monitor renal function (will refer to Dr. Nelson) As per Dr. Cui - will only need change of tubes if obstructive, not 2/2 infection Previous admission 08/2017 UC grew pseudomonas UC - Gram negative Rods (awaiting sens.) Blood Cultures - negative at 24 hours x 2 Imaging: Renal US - Bilateral nephrostomy tubes in place. Increased echogenicity of the bilateral renal parenchymal cortices suggestive for medical renal disease. Mild fullness versus mild hydronephrosis of the bilateral renal collecting systems. Clinical correlation. Meds: LR @ 100cc/hr Cipro 400 Q12, Meropenem Q8H Toradol PRN Florastor HTN Resumed home meds: metoprolol and cozaar Asthma Resumed home meds: singular HIV Resume HIV meds, patient is compliant Last CD4- 470, viral load- undetectable 08/2017 Patient follows up with Dr. Nichole Q3 months to monitor, next appt is 01/2018 Hx Depression Resumed lexapro Hx DVT Resumed eliquis Diagnosed in April 2017 Will need to follow up with Cardio Dr. 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 Pablo Sanchez Tanya PGY1
[2017-10-17] MEDS: Lactated Ringer's 1,000 ML IV SCH ×3 (03:00→18:41)
[2017-10-17] MEDS: Ciprofloxacin 400mg/200ml D5W 400 MG/200 ML BAG IVPB SCH ×2 (03:55→18:33)
[2017-10-17] MEDS: Meropenem 500 MG in Sodium Chloride 0.9% 100 ML IVPB SCH ×2 (05:35→13:50)
--- NOTE | 2017-10-17 07:11 | CON ---
DATE: HISTORY OF PRESENT ILLNESS: The patient is a 62-year-old [place] female, who came to the ER, complaining of greenish discharge from the nephrostomy site with some pain. The patient has bilateral nephrostomy, which was changed recently in August. Her nephrostomy due to bilateral ureteral obstruction related to her cervical cancer. The patient is voiding small quantity of urine. The right ureter completely blocked, the left partially with some reflux. At this stage after starting the antibiotics the patient is feeling less pain and comfortable, no gross hematuria and no bleeding from the nephrostomy site. PHYSICAL EXAMINATION: : Bilateral nephrostomy functioning with cloudy urine with discharge around nephrostomy. ABDOMEN: Soft. Colostomy in position. No suprapubic fullness or tenderness. IMPRESSION: Bilateral nephrostomy tube, urinary tract infection, pain related to the infected site of the nephrostomy. PLAN: Control the infection with antibiotics and change the nephrostomy tube. I will follow her. Cece Knutson MD
--- NOTE | 2017-10-17 09:18 | CP.PCM.PN ---
Subjective - Date & Time of Evaluation Date of Evaluation: 10/17/17 Time of Evaluation: 07:00 - Subjective Subjective: PGY1 progress note for Dr. Shah Patient seen and examined at bedside and in no acute distress. Patient says she still is having right flank pain which comes and goes and she rates from 3/10 to 8/10. Patient denies shortness of breath, chest pain, abdominal pain, N,V. Patient is having normal output from ileostomy. Objective - Vital Signs/Intake and Output Vital Signs (last 24 hours): Temp Pulse Resp BP Pulse Ox 98.7 F 69 20 138/84 96 10/17/17 07:32 10/17/17 07:32 10/17/17 07:32 10/17/17 07:32 10/17/17 07:32 Intake and Output: 10/17/17 10/17/17 06:59 18:59 Intake Total 2530 Output Total 1900 Balance 630 - Medications Medications: Current Medications Apixaban (Eliquis) 5 mg PO BID [facility] Last Admin: 10/16/17 17:51 Dose: 5 mg Darunavir (Prezista) 800 mg PO DAILY [facility] PRN Reason: Protocol Last Admin: 10/16/17 10:02 Dose: 800 mg Dolutegravir Sodium (Tivicay) 50 mg PO DAILY [facility] PRN Reason: Protocol Last Admin: 10/16/17 10:02 Dose: 50 mg Escitalopram Oxalate (Lexapro) 5 mg PO DAILY [facility] Last Admin: 10/16/17 10:02 Dose: 5 mg Famciclovir (Famvir) 500 mg PO DAILY [facility] PRN Reason: Protocol Last Admin: 10/16/17 10:01 Dose: 500 mg Ciprofloxacin (Cipro 400mg/200ml Dsw) 400 mg in 200 mls @ 133 mls/hr IVPB Q12H [facility] PRN Reason: Protocol Last Admin: 10/17/17 03:55 Dose: 133 mls/hr Lactated Ringer's (Lactated Ringer's) 1,000 mls @ 100 mls/hr IV .Q10H [facility] Last Admin: 10/17/17 03:00 Dose: 100 mls/hr Meropenem 500 mg/ Sodium (Chloride) 100 mls @ 100 mls/hr IVPB Q8 [facility] PRN Reason: Protocol Last Admin: 10/17/17 05:35 Dose: 100 mls/hr Ibuprofen (Motrin Tab) 400 mg PO PRN PRN PRN Reason: Pain, Mild (1-3) Losartan Potassium (Cozaar) 100 mg PO DAILY [facility] Last Admin: 10/16/17 10:01 Dose: 100 mg Metoprolol Tartrate (Lopressor) 100 mg PO HS [facility] Last Admin: 10/16/17 21:37 Dose: 100 mg Montelukast Sodium (Singulair) 10 mg PO QPM [facility] Last Admin: 10/16/17 17:51 Dose: 10 mg Ondansetron HCl (Zofran Inj) 4 mg IVP Q6H PRN PRN Reason: Nausea/Vomiting Last Admin: 10/16/17 12:51 Dose: 4 mg Oxybutynin Chloride (Ditropan Xl) 5 mg PO DAILY [facility] Last Admin: 10/16/17 14:57 Dose: 5 mg Oxycodone/Acetaminophen (Percocet 5/325 Mg Tab) 1 tab PO Q6H PRN PRN Reason: Pain, severe (8-10) Stop: 10/18/17 19:37 Last Admin: 10/16/17 10:04 Dose: 1 tab Pantoprazole Sodium (Protonix Ec Tab) 40 mg PO DAILY [facility] Last Admin: 10/16/17 10:02 Dose: 40 mg Ritonavir (Norvir) 100 mg PO DAILY [facility] PRN Reason: Protocol Last Admin: 10/16/17 10:02 Dose: 100 mg Saccharomyces Boulardii (Florastor) 250 mg PO BID [facility] Last Admin: 10/16/17 17:53 Dose: 250 mg Temazepam (Restoril) 15 mg PO [facility] Last Admin: 10/16/17 21:40 Dose: Not Given - Labs Labs: 10/16/17 06:09 10/16/17 06:09 - Additional Findings Additional findings: - Constitutional Appears: Non-toxic, No Acute Distress - Head Exam Head Exam: ATRAUMATIC, NORMOCEPHALIC - Eye Exam Eye Exam: EOMI - ENT Exam ENT Exam: Mucous Membranes Moist - Respiratory Exam Respiratory Exam: Clear to Ausculation Bilateral, NORMAL BREATHING PATTERN. absent: Accessory Muscle Use, Respiratory Distress - Cardiovascular Exam Cardiovascular Exam: REGULAR RHYTHM, +S1, +S2 - GI/Abdominal Exam GI & Abdominal Exam: Soft, Normal Bowel Sounds. absent: Distended, Firm, Guarding, Rigid Additional comments: ileostomy stoma pink, bag has small amount of brown stool, area is c/d/i - very well maintained - Extremities Exam Extremities Exam: absent: Calf Tenderness, Pedal Edema - Back Exam Back Exam: CVA tenderness (R). absent: CVA tenderness (L) Additional comments: bilateral nephrostomy dressings c/d/i - greenish discharge seen in tubing and nephrostomy bags - Neurological Exam Neurological Exam: Alert, Awake, CN II-XII Intact, Oriented x3 - Psychiatric Exam Psychiatric exam: Normal Affect, Normal Mood - Skin Skin Exam: Dry, Warm Assessment and Plan - Assessment and Plan (Free Text) Assessment: Bilateral Chronic Hydronephrosis Bilateral Nephrostomy Tubes Complicated UTI CKD Stage 3B Urology consulted - Dr. Garza ID consulted: Dr. Mitzy Romeo (who saw pt on previous admission) Patient will need to follow up with a Principal [employer] as outpatient to monitor renal function (will refer to Dr. Nelson) NPO past midnight, Dr. Cui to change tubes on 10/18 Previous admission 08/2017 UC grew pseudomonas UC - Klebisella Oxytoca, sensitive to Cipro. stopped Meopenem on 10/17 Blood Cultures - negative at 24 hours x 2 Imaging: Renal US - Bilateral nephrostomy tubes in place. Increased echogenicity of the bilateral renal parenchymal cortices suggestive for medical renal disease. Mild fullness versus mild hydronephrosis of the bilateral renal collecting systems. Clinical correlation. Meds: LR @ 100cc/hr Cipro 400 Q12, d/c Meropenem on 10/17 Florastor Tramadol 25mg po TID prn Percocet 5/325mg 1 tab q6h prn HTN Resumed home meds: metoprolol and cozaar Asthma Resumed home meds: singular HIV Resume HIV meds, patient is compliant Last CD4- 470, viral load- undetectable 08/2017 Patient follows up with Dr. Nichole Q3 months to monitor, next appt is 01/2018 Hx Depression Resumed lexapro Hx DVT Resumed eliquis Diagnosed in April 2017 Will need to follow up with Cardio Dr. 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 Shah
[2017-10-17] MEDS: Saccharomyces Boulardi 250 mg Cap PO SCH ×2 (09:50→18:34)
[2017-10-17] MEDS: Pantoprazole 40 mg EC Tab PO SCH (09:50)
[2017-10-17] MEDS: Oxycodone/Acetaminophen 5/325 mg Tab PO PRN (09:51)
[2017-10-17 11:20] LABS: BASO % 0.3 % (0.0-2.0); EOS # 0.2 K/uL (0.0-0.7); EOS % 1.7 % (0.0-4.0); HEMOGLOBIN 10.7 g/dL (11.0-16.0); LYMPH # 1.9 K/uL (1.0-4.3); LYMPH % 20.8 % (20.0-40.0); MEAN CELL VOLUME 82.4 fL (81.0-99.0); MEAN CORPUSCULAR HEMOGLOBIN 27.5 pg (27.0-31.0); MEAN CORPUSCULAR HGB CONC 33.4 g/dL (33.0-37.0); MEAN PLATELET VOLUME 9.6 fL (7.2-11.7); MONO # 0.6 K/uL (0.0-0.8); NEUT # 6.4 K/uL (1.8-7.0); NEUT % 70.2 % (50.0-75.0); RBC 3.89 Mil/uL (3.80-5.20); RED CELL DISTRIBUTION WIDTH 17.2 % (11.5-14.5); WHITE BLOOD COUNT 9.1 K/uL (4.8-10.8)
[2017-10-17 11:33] LABS: ALB/GLOB RATIO 0.9 (1.0-2.1); ALBUMIN 3.8 g/dL (3.5-5.0); CALCIUM 9.3 mg/dl (8.6-10.4)
[2017-10-17] MEDS ORDERED: Tramadol 25 mg PO PRN (14:01)
--- NOTE | 2017-10-17 19:02 | CP.PCM.PN ---
Subjective - Date & Time of Evaluation Date of Evaluation: 10/17/17 Time of Evaluation: 19:02 - Subjective Subjective: CHIEF COMPLAINTS TODAY : AFEBRILE VSS c/o B/L FLANK PAIN RT>LT. B/L NT -DRAINING GREENISH URINE. ROS. HEENT : N. Resp : No cough, wheezing ,pleuritic CP ,or hemoptysis Cardio : No anginal CP, PND, orthopnea, palpitation GI : B/L FLANK PAIN RT >LT , denies n/v ,diarrhea or GI bleeding . 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 Musculoskel : No joint swelling , Derm : No rash Psych : Normal affect. Ext : No swelling ,calf pain PE. Pt. is alert awake in no distress. V.S As noted in the chart Head ,ear nose,throat and eyes : Normal. Neck : Supple with normal carotids. Lungs: Clear air entry. Heart : S1 & S2 normal with S4. No murmur. Abd : SOFT , B/L NT IN PLACE +VE GREENISH URINE, +VE MILD DISCOMFORT B/L FLANKS , with normal bowel sounds. Neuro : Moves all ext. with no localized deficit. Ext : No edema with intact pulses.Non tender calves Derm : No rashes or decubitus ulcer. LABS/RADIOLOGY: BLOOD CULTURE 10/15/17 -VE GROWTH X 48HRS. URINE CULTURE 10/15/17 +VE KLEIBSIELLA -OXYTOCA S- CIPRO, MERREM. RENAL US ; NOTED.B/L NT, MILD FULLNESS/B/L HYDRONEPHROSIS Objective - Vital Signs/Intake and Output Vital Signs (last 24 hours): Temp Pulse Resp BP Pulse Ox 98.1 F 83 20 125/78 96 10/17/17 15:00 10/17/17 15:00 10/17/17 15:00 10/17/17 15:00 10/17/17 15:00 Intake and Output: 10/17/17 10/18/17 18:59 06:59 Intake Total 1250 Output Total 800 Balance 450 - Medications Medications: Current Medications Apixaban (Eliquis) 5 mg PO BID [facility] Last Admin: 10/17/17 18:34 Dose: 5 mg Darunavir (Prezista) 800 mg PO DAILY [facility] PRN Reason: Protocol Last Admin: 10/17/17 09:50 Dose: 800 mg Dolutegravir Sodium (Tivicay) 50 mg PO DAILY [facility] PRN Reason: Protocol Last Admin: 10/17/17 09:50 Dose: 50 mg Escitalopram Oxalate (Lexapro) 5 mg PO DAILY [facility] Last Admin: 10/17/17 09:50 Dose: 5 mg Famciclovir (Famvir) 500 mg PO DAILY [facility] PRN Reason: Protocol Last Admin: 10/17/17 09:51 Dose: 500 mg Ciprofloxacin (Cipro 400mg/200ml Dsw) 400 mg in 200 mls @ 133 mls/hr IVPB Q12H [facility] PRN Reason: Protocol Last Admin: 10/17/17 18:33 Dose: 133 mls/hr Lactated Ringer's (Lactated Ringer's) 1,000 mls @ 100 mls/hr IV .Q10H [facility] Last Admin: 10/17/17 18:41 Dose: 100 mls/hr Ibuprofen (Motrin Tab) 400 mg PO PRN PRN PRN Reason: Pain, Mild (1-3) Losartan Potassium (Cozaar) 100 mg PO DAILY [facility] Last Admin: 10/17/17 09:50 Dose: 100 mg Metoprolol Tartrate (Lopressor) 100 mg PO HS [facility] Last Admin: 10/16/17 21:37 Dose: 100 mg Montelukast Sodium (Singulair) 10 mg PO QPM [facility] Last Admin: 10/17/17 18:34 Dose: 10 mg Ondansetron HCl (Zofran Inj) 4 mg IVP Q6H PRN PRN Reason: Nausea/Vomiting Last Admin: 10/17/17 11:49 Dose: 4 mg Oxybutynin Chloride (Ditropan Xl) 5 mg PO DAILY [facility] Last Admin: 10/17/17 09:53 Dose: 5 mg Oxycodone/Acetaminophen (Percocet 5/325 Mg Tab) 1 tab PO Q6H PRN PRN Reason: Pain, severe (8-10) Stop: 10/18/17 19:37 Last Admin: 10/17/17 09:51 Dose: 1 tab Pantoprazole Sodium (Protonix Ec Tab) 40 mg PO DAILY [facility] Last Admin: 10/17/17 09:50 Dose: 40 mg Ritonavir (Norvir) 100 mg PO DAILY [facility] PRN Reason: Protocol Last Admin: 10/17/17 09:50 Dose: 100 mg Saccharomyces Boulardii (Florastor) 250 mg PO BID [facility] Last Admin: 10/17/17 18:34 Dose: 250 mg Temazepam (Restoril) 15 mg PO HS [facility] Last Admin: 10/16/17 21:40 Dose: Not Given Tramadol HCl (Ultram) 25 mg PO TID PRN PRN Reason: Pain, moderate (4-7) Last Admin: 10/17/17 18:41 Dose: 25 mg - Labs Labs: 10/17/17 11:10 10/17/17 11:10 Assessment and Plan - Assessment and Plan (Free Text) Assessment: Asssessment : -COMPLICATED UTI.- KLEBSIELLA OXYTOCA (URINE+VE ON CULTURE ) -ABDOMINAL PAIN - BILATERAL HYDRONEPHROSIS S/P BILATERAL NT IN PLACE. RECENTLY CHANGED 08/18/17 -CA OF THE CERVIX S/P ILEOSTOMY.. -ACQUIRED IMMUNE DEFICIENCY SYNDROME.. - PRERENAL AZOTEMIA. -HX OF DVT/S/P IVC FILTER/ON ELAQUIS. -CONSTIPATION PLAN: BLOOD CULTURES 2 -VE TO DATE CONTINUE iv CIPRO 400 EVERY 12 HOURLY.10/15/17. AGREE WITH DC MEROPENEM IV HYDRATION. PT FOR CHANGE OF B/L NT ON 10/18/17. PER IR. CURTIS ON BOARD.
[2017-10-18] MEDS ORDERED: Morphine 4 MG/ML VIAL IVP ONE (00:28)
[2017-10-18] MEDS: Ciprofloxacin 400mg/200ml D5W 400 MG/200 ML BAG IVPB SCH ×2 (05:20→16:48)
--- NOTE | 2017-10-18 06:21 | PN ---
DATE: 10/17/2017 The patient has a nephrostomy tube which was infected, on antibiotics. Nephrostomy tube will be changed tomorrow. The patient has been on and off, no bleeding. Cece Knutson MD
[2017-10-18] MEDS: Lactated Ringer's 1,000 ML IV SCH ×2 (06:35→14:22)
[2017-10-18 08:14] LABS: BASO % 0.3 % (0.0-2.0); EOS # 0.2 K/uL (0.0-0.7); EOS % 3.7 % (0.0-4.0); HEMOGLOBIN 9.6 g/dL (11.0-16.0); LYMPH # 1.5 K/uL (1.0-4.3); LYMPH % 30.1 % (20.0-40.0); MEAN CELL VOLUME 82.7 fL (81.0-99.0); MEAN CORPUSCULAR HEMOGLOBIN 27.1 pg (27.0-31.0); MEAN CORPUSCULAR HGB CONC 32.8 g/dL (33.0-37.0); MEAN PLATELET VOLUME 9.2 fL (7.2-11.7); MONO # 0.5 K/uL (0.0-0.8); MONO % 9.2 % (0.0-10.0); NEUT # 2.9 K/uL (1.8-7.0); NEUT % 56.7 % (50.0-75.0); RBC 3.54 Mil/uL (3.80-5.20); RED CELL DISTRIBUTION WIDTH 16.6 % (11.5-14.5); WHITE BLOOD COUNT 5.1 K/uL (4.8-10.8)
[2017-10-18 08:19] VITALS: BP 177/97; PULSE 65; TEMP 98.6; O2SAT 95
[2017-10-18 08:38] LABS: ALB/GLOB RATIO 0.9 (1.0-2.1); ALBUMIN 3.2 g/dL (3.5-5.0)
--- NOTE | 2017-10-18 09:40 | CP.PCM.PN ---
Subjective - Date & Time of Evaluation Date of Evaluation: 10/18/17 Time of Evaluation: 07:00 - Subjective Subjective: PGY1 progress note for Dr. Shah Patient seen and examined at bedside and in no acute distress. Patient says she still is having right flank pain but it is feeling better today and which she rates 3/10. Patient denies shortness of breath, chest pain, abdominal pain, N, V. Patient is having normal output from ileostomy. Objective - Vital Signs/Intake and Output Vital Signs (last 24 hours): Temp Pulse Resp BP Pulse Ox 98.6 F 65 20 177/97 H 95 10/18/17 08:16 10/18/17 08:16 10/18/17 08:16 10/18/17 08:16 10/18/17 08:16 Intake and Output: 10/18/17 10/18/17 06:59 18:59 Intake Total 1380 Output Total 950 Balance 430 - Medications Medications: Current Medications Apixaban (Eliquis) 5 mg PO BID [facility] Last Admin: 10/17/17 18:34 Dose: 5 mg Darunavir (Prezista) 800 mg PO DAILY [facility] PRN Reason: Protocol Last Admin: 10/17/17 09:50 Dose: 800 mg Dolutegravir Sodium (Tivicay) 50 mg PO DAILY [facility] PRN Reason: Protocol Last Admin: 10/17/17 09:50 Dose: 50 mg Escitalopram Oxalate (Lexapro) 5 mg PO DAILY [facility] Last Admin: 10/17/17 09:50 Dose: 5 mg Famciclovir (Famvir) 500 mg PO DAILY [facility] PRN Reason: Protocol Last Admin: 10/17/17 09:51 Dose: 500 mg Ciprofloxacin (Cipro 400mg/200ml Dsw) 400 mg in 200 mls @ 133 mls/hr IVPB Q12H [facility] PRN Reason: Protocol Last Admin: 10/18/17 05:20 Dose: 133 mls/hr Lactated Ringer's (Lactated Ringer's) 1,000 mls @ 100 mls/hr IV .Q10H [facility] Last Admin: 10/18/17 06:35 Dose: Not Given Ibuprofen (Motrin Tab) 400 mg PO PRN PRN PRN Reason: Pain, Mild (1-3) Losartan Potassium (Cozaar) 100 mg PO DAILY [facility] Last Admin: 10/17/17 09:50 Dose: 100 mg Metoprolol Tartrate (Lopressor) 100 mg PO HS [facility] Last Admin: 10/16/17 21:37 Dose: 100 mg Montelukast Sodium (Singulair) 10 mg PO QPM [facility] Last Admin: 10/17/17 18:34 Dose: 10 mg Ondansetron HCl (Zofran Inj) 4 mg IVP Q6H PRN PRN Reason: Nausea/Vomiting Last Admin: 10/17/17 11:49 Dose: 4 mg Oxybutynin Chloride (Ditropan Xl) 5 mg PO DAILY [facility] Last Admin: 10/17/17 09:53 Dose: 5 mg Pantoprazole Sodium (Protonix Ec Tab) 40 mg PO DAILY [facility] Last Admin: 10/17/17 09:50 Dose: 40 mg Ritonavir (Norvir) 100 mg PO DAILY [facility] PRN Reason: Protocol Last Admin: 10/17/17 09:50 Dose: 100 mg Saccharomyces Boulardii (Florastor) 250 mg PO BID [facility] Last Admin: 10/17/17 18:34 Dose: 250 mg Temazepam (Restoril) 15 mg PO [facility] Last Admin: 10/17/17 23:54 Dose: Not Given Tramadol HCl (Ultram) 25 mg PO TID PRN PRN Reason: Pain, moderate (4-7) Last Admin: 10/17/17 18:41 Dose: 25 mg - Labs Labs: 10/18/17 08:03 10/18/17 08:03 - Additional Findings Additional findings: - Constitutional Appears: Non-toxic, No Acute Distress - Head Exam Head Exam: ATRAUMATIC, NORMOCEPHALIC - Eye Exam Eye Exam: EOMI - ENT Exam ENT Exam: Mucous Membranes Moist - Respiratory Exam Respiratory Exam: Clear to Ausculation Bilateral, NORMAL BREATHING PATTERN. absent: Accessory Muscle Use, Respiratory Distress - Cardiovascular Exam Cardiovascular Exam: REGULAR RHYTHM, +S1, +S2 - GI/Abdominal Exam GI & Abdominal Exam: Soft, Normal Bowel Sounds. absent: Distended, Firm, Guarding, Rigid Additional comments: ileostomy stoma pink, bag has small amount of brown stool, area is c/d/i - very well maintained - Extremities Exam Extremities Exam: absent: Calf Tenderness, Pedal Edema - Back Exam Back Exam: CVA tenderness (R). absent: CVA tenderness (L) Additional comments: bilateral nephrostomy dressings c/d/i - greenish discharge seen in tubing and nephrostomy bags - Neurological Exam Neurological Exam: Alert, Awake, CN II-XII Intact, Oriented x3 - Psychiatric Exam Psychiatric exam: Normal Affect, Normal Mood - Skin Skin Exam: Dry, Warm Assessment and Plan - Assessment and Plan (Free Text) Assessment: Bilateral Chronic Hydronephrosis Bilateral Nephrostomy Tubes Complicated UTI CKD Stage 3B Urology consulted - Dr. Garza ID consulted: Dr. Mitzy Romeo (who saw pt on previous admission) Patient will need to follow up with a Turkey Farmer as outpatient to monitor renal function (will refer to Dr. Nelson) NPO past midnight, Dr. Cui to change tubes on 10/18 Previous admission 08/2017 UC grew pseudomonas UC - Klebisella Oxytoca, sensitive to Cipro. stopped Meopenem on 10/17 Blood Cultures - negative at 24 hours x 2 Imaging: Renal US - Bilateral nephrostomy tubes in place. Increased echogenicity of the bilateral renal parenchymal cortices suggestive for medical renal disease. Mild fullness versus mild hydronephrosis of the bilateral renal collecting systems. Clinical correlation. Meds: LR @ 100cc/hr Cipro 400 Q12, d/c Meropenem on 10/17 Florastor Tramadol 25mg po TID prn Percocet 5/325mg 1 tab q6h prn HTN Resumed home meds: metoprolol and cozaar Asthma Resumed home meds: singular HIV Resume HIV meds, patient is compliant Last CD4- 470, viral load- undetectable 08/2017 Patient follows up with Dr. Nichole Q3 months to monitor, next appt is 01/2018 Hx Depression Resumed lexapro Hx DVT Resumed eliquis Diagnosed in April 2017 Will need to follow up with Cardio Dr. 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 Shah
[2017-10-18] MEDS: Saccharomyces Boulardi 250 mg Cap PO SCH ×2 (10:24→17:01)
[2017-10-18] MEDS: Pantoprazole 40 mg EC Tab PO SCH (10:25)
[2017-10-18] MEDS ORDERED: Iodixanol 320 MG/ML 100 ML BOTTLE IV ONE (10:42)
[2017-10-18] MEDS ORDERED: Propofol 10 mg/ml Inj (20 ML) ONE (10:49)
[2017-10-18] MEDS ORDERED: Midazolam 2 MG/2 ML VIAL ONE (10:49)
--- NOTE | 2017-10-18 15:22 | CP.PCM.DIS ---
Provider - Provider Date of Admission: 10/15/17 16:13 Attending physician: Jossue Shah MD Primary care physician: Dr. Nichole Consults: Dr. Romeo (ID) Dr. Cui (IR) Dr. Knutson (Urology) Time Spent in preparation of Discharge (in minutes): 45 Diagnosis - Discharge Diagnosis (1) Urinary tract infection associated with nephrostomy catheter Status: Acute (2) Abdominal pain Status: Suspected (3) Bilateral hydronephrosis Status: Chronic (4) HIV disease Status: Chronic (5) Colostomy care Status: Chronic (6) Overactive bladder Status: Chronic (7) Asthma exacerbation, mild Status: Resolved (8) HTN (hypertension) Status: Chronic (9) History of depression Status: Chronic Hospital Course - Lab Results Lab Results: Micro Results 10/15/17 19:00 Blood-Venous Blood Culture - Preliminary NO GROWTH AFTER 48 HOURS 10/15/17 19:00 Blood-Venous Blood Culture - Preliminary NO GROWTH AFTER 48 HOURS 10/15/17 16:00 Urine,Kidney Urine Culture - Final Klebsiella Oxytoca Most Recent Lab Values WBC 5.1 K/uL (4.8-10.8) 10/18/17 08:03 RBC 3.54 Mil/uL (3.80-5.20) L 10/18/17 08:03 Hgb 9.6 g/dL (11.0-16.0) L 10/18/17 08:03 Hct 29.2 % (34.0-47.0) L 10/18/17 08:03 MCV 82.7 fL (81.0-99.0) 10/18/17 08:03 MCH 27.1 pg (27.0-31.0) 10/18/17 08:03 MCHC 32.8 g/dL (33.0-37.0) L 10/18/17 08:03 RDW 16.6 % (11.5-14.5) H 10/18/17 08:03 Plt Count 157 K/uL (130-400) 10/18/17 08:03 MPV 9.2 fL (7.2-11.7) 10/18/17 08:03 Neut % (Auto) 56.7 % (50.0-75.0) 10/18/17 08:03 Lymph % (Auto) 30.1 % (20.0-40.0) 10/18/17 08:03 [place] % (Auto) 9.2 % (0.0-10.0) 10/18/17 08:03 Eos % (Auto) 3.7 % (0.0-4.0) 10/18/17 08:03 Baso % (Auto) 0.3 % (0.0-2.0) 10/18/17 08:03 Neut # (Auto) 2.9 K/uL (1.8-7.0) 10/18/17 08:03 Lymph # (Auto) 1.5 K/uL (1.0-4.3) 10/18/17 08:03 [place] # (Auto) 0.5 K/uL (0.0-0.8) 10/18/17 08:03 Eos # (Auto) 0.2 K/uL (0.0-0.7) 10/18/17 08:03 Baso # (Auto) 0.0 K/uL (0.0-0.2) 10/18/17 08:03 Sodium 140 mmol/L (132-148) 10/18/17 08:03 Potassium 4.1 mmol/L (3.6-5.2) 10/18/17 08:03 Chloride 102 mmol/L (98-107) 10/18/17 08:03 Carbon Dioxide 29 mmol/L (22-30) 10/18/17 08:03 Anion Gap 13 (10-20) 10/18/17 08:03 BUN 16 mg/dL (7-17) 10/18/17 08:03 Creatinine 1.4 mg/dL (0.7-1.2) H 10/18/17 08:03 Est GFR ( Amer) 46 10/18/17 08:03 Est GFR (Non-Af Amer) 38 10/18/17 08:03 Random Glucose 93 mg/dL (65-105) 10/18/17 08:03 Calcium 9.0 mg/dl (8.6-10.4) 10/18/17 08:03 Phosphorus 2.8 mg/dL (2.5-4.5) 10/18/17 08:03 Magnesium 1.6 mg/dL (1.6-2.3) 10/18/17 08:03 Total Bilirubin 0.4 mg/dL (0.2-1.3) 10/18/17 08:03 AST 24 U/L (14-36) 10/18/17 08:03 ALT 19 U/L (9-52) 10/18/17 08:03 Alkaline Phosphatase 52 U/L (38-126) 10/18/17 08:03 Total Protein 6.8 g/dL (6.3-8.3) 10/18/17 08:03 Albumin 3.2 g/dL (3.5-5.0) L 10/18/17 08:03 Globulin 3.6 gm/dL (2.2-3.9) 10/18/17 08:03 Albumin/Globulin Ratio 0.9 (1.0-2.1) L 10/18/17 08:03 Lipase 192 U/L (23-300) 10/15/17 14:56 Urine Color Yellow (YELLOW) 10/15/17 14:56 Urine Clarity Hazy (Clear) 10/15/17 14:56 Urine pH 6.0 (5.0-8.0) 10/15/17 14:56 Ur Specific [place] 1.011 (1.003-1.030) 10/15/17 14:56 Urine Protein 2+ mg/dL (NEGATIVE) H 10/15/17 14:56 Urine Glucose (UA) Normal mg/dL (Normal) 10/15/17 14:56 Urine Ketones Negative mg/dL (NEGATIVE) 10/15/17 14:56 Urine Blood 2+ (NEGATIVE) H 10/15/17 14:56 Urine Nitrate Positive (NEGATIVE) H 10/15/17 14:56 Urine Bilirubin Negative (NEGATIVE) 10/15/17 14:56 Urine Urobilinogen Normal mg/dL (0.2-1.0) 10/15/17 14:56 Ur Leukocyte Esterase 3+ [place]/uL (Negative) H 10/15/17 14:56 Urine WBC (Auto) 385 /hpf (0-5) H 10/15/17 14:56 Urine RBC (Auto) 53 /hpf (0-3) H 10/15/17 14:56 Urine WBC Clumps (Auto) Few /hpf (NONE) H 10/15/17 14:56 Urine Bacteria Occ (<OCC) H 10/15/17 14:56 - Hospital Course Hospital Course: 62 year old female with past medical history of HIV (last CD4 470 and viral load undetectable), cervical CA (s/p chemo and radiation 2000) 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 Patient also had sharp flank pain. Patient was found to be hypertensive and afebrile. Patient was started on cipro 400mg Q12, Meropenem 500, and toradol 30mg IVP Q6 for pain. Urology and Infectious Disease were consulted. Patient was maintained on her home medications of metoprolol 50mg HS, Darunavir 800 mg PO, Escitalopram 5mg Po, Famciclovir 500mg PO, Cozaar 100mg (we do not have valsartan), Montelukast 10mg PO QPM, Oxybutinin 5mg, Ritonavir 100mg PO, Temazepam 15mg HS, and Apixaban 5mg BID A renal ultrasound was done which showed bilateral nephrostomy tubes in place, increased echogenicity of the bilateral renal parenchymal cortices suggestive for medical renal disease, Mild fullness versus mild hydronephrosis of the bilateral renal collective systems. Urine culture grew Klebsiella oxytoca, blood cultures showed no growth. Dr. Lofton from infectious disease diagnosed patient with a complicated UTI and agreed with the current regimen. Meropenem was later D/C'd on 10/17/[address] Lofton's approval and sensitivities showed extensive coverage by Cipro. Dr. Knutson from nephrology recommended change of the nephrostomy tubes. However , Dr. Cui stated that tubes only need be changed if obstructed, not infected. Therefore patient scheduled a date in November to have the tubes changed. Patient' s nephrostomy bags were changed on 10/18/17. During admission patient had one instance of high blood pressure, however measurements were taken before patient had received medications. Pressure soon stabilized once medications were administered. Upon discharge patient's white count had declined, flank pain had subsided and appointment was scheduled to have nephrostomy tubes changed in November. This is a summary of the patient's hospital course. Please see chart for details. Patient to return to ED if symptoms return. Discharge Exam - Additional Findings Additional findings: - Constitutional Appears: Non-toxic, No Acute Distress - Head Exam Head Exam: ATRAUMATIC, NORMOCEPHALIC - Eye Exam Eye Exam: EOMI - ENT Exam ENT Exam: Mucous Membranes Moist - Respiratory Exam Respiratory Exam: Clear to Ausculation Bilateral, NORMAL BREATHING PATTERN. absent: Accessory Muscle Use, Respiratory Distress - Cardiovascular Exam Cardiovascular Exam: REGULAR RHYTHM, +S1, +S2 - GI/Abdominal Exam GI & Abdominal Exam: Soft, Normal Bowel Sounds. absent: Distended, Firm, Guarding, Rigid Additional comments: ileostomy stoma pink, bag has small amount of brown stool, area is c/d/i - very well maintained - Extremities Exam Extremities Exam: absent: Calf Tenderness, Pedal Edema - Back Exam Back Exam: CVA tenderness (R). absent: CVA tenderness (L) Additional comments: bilateral nephrostomy dressings c/d/i - new nephrostomy bags - Neurological Exam Neurological Exam: Alert, Awake, CN II-XII Intact, Oriented x3 - Psychiatric Exam Psychiatric exam: Normal Affect, Normal Mood - Skin Skin Exam: Dry, Warm Discharge Plan - Discharge Medications Prescriptions: Ciprofloxacin HCl [Cipro] 500 mg PO BID #6 tablet - Follow Up Plan Condition: GUARDED Disposition: HOME/ ROUTINE Instructions: Ciprofloxacin (Systemic), Heart Failure, Adult (DC), How to Care for Your Nephrostomy Tube, Urinary Tract Infection in Women (DC) Additional Instructions: Patient stable for discharge as per Dr. Shah. Recommended patient follow up with Dr. Nelson- [employer] to have her renal function monitored. Patient will have nephrostomy tubes changed in November. Patient to continue Cipro 500mg by mouth twice a day for 3 more days. Patient to return to ED if symptoms return. Referrals: Rojas Nichole MD [Medical Doctor] - Melo Nelson MD [Staff Provider] -
[2017-10-18] MEDS ORDERED: Morphine 4 MG/ML VIAL IV ONE (16:09)
== END 2017-10-18 20:45 | disposition home or self-care (01) | DRG 569 ==
LOC: C.ER 13:32 → C.9E 16:13 → C.3T 16:34
PROVIDERS: ADMIT Internal Medicine; ATTEND Internal Medicine
DX: N99.521 Infection of incontinent external stoma of urinary tract (principal); B20 Human immunodeficiency virus [HIV] disease; N39.0 Urinary tract infection, site not specified; N13.30 Unspecified hydronephrosis; I13.0 Hypertensive heart and chronic kidney disease with heart failure and stage 1 through stage 4 chronic kidney disease, or unspecified chronic kidney disease; I50.9 Heart failure, unspecified; N18.3 Chronic kidney disease, stage 3 (moderate); J45.901 Unspecified asthma with (acute) exacerbation; N32.81 Overactive bladder; F32.9 Major depressive disorder, single episode, unspecified; K21.9 Gastro-esophageal reflux disease without esophagitis; G47.00 Insomnia, unspecified; D63.8 Anemia in other chronic diseases classified elsewhere; B96.89 Other specified bacterial agents as the cause of diseases classified elsewhere; K59.00 Constipation, unspecified; Y84.8 Other medical procedures as the cause of abnormal reaction of the patient, or of later complication, without mention of misadventure at the time of the procedure; Z93.3 Colostomy status; Z88.2 Allergy status to sulfonamides; Z92.3 Personal history of irradiation; Z92.21 Personal history of antineoplastic chemotherapy; Z87.891 Personal history of nicotine dependence; Z85.41 Personal history of malignant neoplasm of cervix uteri; Z86.718 Personal history of other venous thrombosis and embolism; Z79.01 Long term (current) use of anticoagulants; Z93.2 Ileostomy status

== ENCOUNTER 2018-01-31 09:36 | Day surgery (SDC) | payer MEDICAID ==
[2018-01-31] MEDS ORDERED: Midazolam 2 MG/2 ML VIAL ONE (10:19)
[2018-01-31] MEDS ORDERED: Propofol 10 mg/ml Inj (20 ML) ONE (10:20)
[2018-01-31] MEDS ORDERED: Lidocaine 2% MPF (5 ml) Inj ONE ×2 (10:24→10:49)
[2018-01-31] MEDS ORDERED: Iodixanol 320 MG/ML 100 ML BOTTLE IV ONE ×2 (10:49→10:50)
--- NOTE | 2018-01-31 11:02 | CP.SDSHP ---
Same Day Surgery H & P - History Proposed Procedure: Bilateral PCN change Pre-Op Diagnosis: Hydronephrosis - Allergies Allergies: Allergies aloe vera Allergy (Severe, Verified 10/15/17 13:54) ITCHING Sulfa (Sulfonamide Antibiotics) Allergy (Severe, Verified 10/15/17 13:54) ITCHING sulfamethoxazole [From Bactrim] Allergy (Severe, Verified 10/15/17 13:54) ITCHING - Physical Exam Mental Status: Alert & Oriented x3 Lungs: WNL - Impression Impression: Pt with ureteral obstruction and bilateral PCN. Plan right and left PCN change. Pt. Evaluated Today:Candidate for Anesthesia & Procedure: Yes (ASA 3 [place] 3 ) Short Stay Discharge - Short Stay Discharge Admitting Diagnosis/Reason for Visit: UNSPECIFIED HYDRONEPHROSIS Disposition: HOME/ ROUTINE
--- NOTE | 2018-01-31 11:04 | PCM.SURG1 ---
Surgeon's Initial Post Op Note - Surgeon's Notes Surgeon: Benjie Cui MD Rn Plastic Surgery: NONE Type of Anesthesia: IV Sedation Pre-Operative Diagnosis: Bilateral hydronephrosis Operative Findings: Nephrostogram showed moderate right and left hydronephrosis Post-Operative Diagnosis: Bilateral hydronephrosis Operation Performed: Right and left PCN change. Specimen/Specimens Removed: NONE Estimated Blood Loss: EBL {In ML}: 0 Blood Products Given: N/A Drains Used: No Drains Post-Op Condition: Fair Date of Surgery/Procedure: 01/31/18 Time of Surgery/Procedure: 10:30
== END 2018-01-31 12:35 | disposition home or self-care (01) ==
LOC: C.SPRAD 09:36
PROVIDERS: ATTEND Specialist
DX: N13.30 Unspecified hydronephrosis (principal)
CPT/HCPCS: 75984; C1729; C1769; J2250; J3010; Q9967

== ENCOUNTER 2018-04-16 13:22 | Inpatient (IN) | payer MEDICAID ==
[2018-04-16 13:23] VITALS: BMI 26.9
--- NOTE | 2018-04-16 15:54 | C.PDOC ---
History Of Present Illness 63 y/o F p/w UTI. Patient states she has UTI, which she was informed was complicated and requires IV antibiotics as oral antibiotics will not work. She denies fever, vomiting, dyspnea. Time Seen by Provider: 04/16/18 15:26 Chief Complaint (Nursing): Female Genitourinary Past Medical History Vital Signs: Last Vital Signs Temp 98.8 F 04/16/18 13:45 Pulse 95 H 04/16/18 13:45 Resp 16 04/16/18 13:45 BP 155/86 H 04/16/18 13:45 Pulse Ox 99 04/16/18 13:45 - Medical History PMH: Anemia, Anxiety, Arthritis, Asthma, CHF, COPD, Depression, Gastritis, HIV, HTN, Hypercholesterolemia, Hyperlipidemia, Kidney Stones, Malignancy (Cervical (2000), was treated with chemo and radiation.), Osteoporosis, Pancreatitis, Peripheral Edema, Chronic Kidney Disease Surgical History: Cholecystectomy, Endoscopy Denies: Pacemaker - [facility] Procedures CHANGE DRAINAGE DEVICE IN KIDNEY, EXTERNAL APPROACH (08/13/17) CHANGE DRAINAGE DEVICE IN URETER, EXTERNAL APPROACH (04/19/17) CYSTOSCOPY NEC (08/07/14) DILATION OF LEFT COMMON ILIAC VEIN, PERCUTANEOUS APPROACH (05/04/16) DILATION OF LEFT FEMORAL VEIN, PERCUTANEOUS APPROACH (05/04/16) EXCISION OF BLADDER, ENDO, DIAGN (08/13/17) FLUOROSCOPY OF BLADDER (09/25/16) INSERTION OF INTRALUM DEV INTO INF VENA CAVA, PERC APPROACH (05/04/16) INSERTION OF TOTALLY IMPLANTABLE VASC ACCESS DEVIC (10/02/03) INSPECTION OF BLADDER, ENDO (09/25/16) INTRAVENOUS PYELOGRAM (09/03/14) INTRODUCE OTH THROMBOLYTIC IN PERIPH VEIN, PERC (05/04/16) NEPHROSTOMY (06/26/14) PACKED CELL TRANSFUSION (11/20/14) PLAIN RADIOGRAPHY OF INFERIOR VENA CAVA USING OTHER CONTRAST (05/04/16) RADIOGRAPHY OF KIDNEY, URETER & BLADDER USING OTH CONTRAST (10/25/16) REMOV URETERAL DRAIN (09/26/14) REPLACE NEPHROSTOMY TUBE (10/31/14) RETROGRADE PYELOGRAM (01/15/15) URETERAL CATHETERIZATION (01/15/15) VAGINOSCOPY (05/30/14) VULVAR BIOPSY (02/07/14) Family History: States: Unknown Family Hx - Social History Hx Tobacco Use: No Hx Alcohol Use: No Hx Substance Use: No - Immunization History Hx Tetanus Toxoid Vaccination: Yes Hx Influenza Vaccination: Yes Hx Pneumococcal Vaccination: Yes Review Of Systems Except As Marked, All Systems Reviewed And Found Negative. Constitutional: Negative for: Fever Respiratory: Negative for: Shortness of Breath Physical Exam - Physical Exam Additional Physical Exam Comments: Constitutional: No acute distress. Head: Normocephalic. Atraumatic. Eyes: PERRL. ENT: Moist mucous membranes. Neck: Supple. Cardiovascular: Regular rate. Radial pulse 2+ bilaterally. Chest: No tenderness. Respiratory: Clear to auscultation bilaterally. GI: Soft. Nontender. Nondistended. Back: No CVA tenderness. Musculoskeletal: No tenderness or swelling of extremities. Skin: No rash. Neurologic: Alert, no focal deficit. ED Course And Treatment - Laboratory Results Result Diagrams: 04/16/18 16:15 04/16/18 16:15 O2 Sat by Pulse Oximetry: 99 Medical Decision Making Medical Decision Making: EKG: NSR at 80BPM, No st elevation CXR HISTORY: complicated uti COMPARISON: Comparison chest 12/19/2017. FINDINGS: In situ right-sided MediPort with tip in the SVC. There is also a left-sided apparent PICC line with tip in what probably represents a left-sided SVC. LUNGS: No active pulmonary disease. PLEURA: No significant pleural effusion identified, no pneumothorax apparent. CARDIOVASCULAR: Normal. OSSEOUS STRUCTURES: No significant abnormalities. VISUALIZED UPPER ABDOMEN: Normal. OTHER FINDINGS: None. IMPRESSION: No active disease. Dr. Vega accepts patient to his service, states he will initiate antibiotics. Disposition Discussed With : Lamberto Vega Doctor Will See Patient In The: Hospital - Disposition Disposition: HOSPITALIZED Disposition Time: 18:00 Condition: GUARDED - Clinical Impression Clinical Impression: Complicated urinary tract infection
[2018-04-16 16:24] LABS: BASO % 0.3 % (0.0-2.0); EOS # 0.1 K/uL (0.0-0.7); EOS % 0.9 % (0.0-4.0); LYMPH # 2.4 K/uL (1.0-4.3); LYMPH % 29.1 % (20.0-40.0); MEAN CELL VOLUME 79.8 fL (81.0-99.0); MEAN CORPUSCULAR HEMOGLOBIN 26.1 pg (27.0-31.0); MEAN CORPUSCULAR HGB CONC 32.7 g/dL (33.0-37.0); MEAN PLATELET VOLUME 9.7 fL (7.2-11.7); MONO # 0.7 K/uL (0.0-0.8); MONO % 8.5 % (0.0-10.0); NEUT % 61.2 % (50.0-75.0); NRBC % 0.1 % (0.0-2.0); RBC 4.23 Mil/uL (3.80-5.20); RED CELL DISTRIBUTION WIDTH 17.7 % (11.5-14.5); WHITE BLOOD COUNT 8.2 K/uL (4.8-10.8)
[2018-04-16 16:29] LABS: SQUAMOUS EPITHIAL 3 /hpf (0-5); URINE BACTERIA MOD (<OCC); URINE BILIRUBIN NEGATIVE (NEGATIVE); URINE BLOOD 1+ (NEGATIVE); URINE CLARITY Hazy (Clear); URINE COLOR Yellow (YELLOW); URINE GLUCOSE (UA) NORMAL (Normal); URINE PROTEIN 2+ mg/dL (NEGATIVE); URINE TRIPLE PHOSPHATE CRYSTAL OCC /hpf (<OCC); URINE UROBILINOGEN NORMAL mg/dL (0.2-1.0)
[2018-04-16 16:32] LABS: URINE LEUKOCYTE ESTERASE TRACE Leu/uL (Negative)
[2018-04-16 16:41] LABS: ALB/GLOB RATIO 1.2 (1.0-2.1); ALBUMIN 4.3 g/dL (3.5-5.0); CALCIUM 9.8 mg/dl (8.6-10.4)
--- NOTE | 2018-04-16 17:13 | RAD ---
Date of service: 04/16/2018 HISTORY: complicated uti COMPARISON: Comparison chest 12/19/2017. FINDINGS: In situ right-sided MediPort with tip in the SVC. There is also a left-sided apparent PICC line with tip in what probably represents a left-sided SVC. LUNGS: No active pulmonary disease. PLEURA: No significant pleural effusion identified, no pneumothorax apparent. CARDIOVASCULAR: Normal. OSSEOUS STRUCTURES: No significant abnormalities. VISUALIZED UPPER ABDOMEN: Normal. OTHER FINDINGS: None. IMPRESSION: No active disease.
[2018-04-16] MEDS ORDERED: Albuterol HFA 90 mcg/actuation (8 g) INH PRN (19:02)
[2018-04-16] MEDS ORDERED: Oxycodone/Acetaminophen 5/325 mg Tab PO PRN (19:02)
--- NOTE | 2018-04-16 19:22 | CP.PCM.HP ---
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 Patient states she has chronic microcytic anemia and Gastritis managed by her Auto Machinist, Dr. Wong for which she takes omeprazole. She received Intravenous Iron and blood transfusions, last given 2013. she is now with recurent urine infection, had antibiotics as out pt, also an admission for DVT, thrombectomy from femoral vein, then eliquis. referred by "Dr Knutson"for admission , IV antibiotics and exchange nephrostomy tubes, cystoscopy Present on Admission - Present on Admission Any Indicators Present on Admission: No Review of Systems - Review of Systems Systems not reviewed;Unavailable: Acuity of Condition - Constitutional Constitutional: Anorexia, Weakness - EENT Eyes: absent: Discharge Ears: absent: Ear Discharge, Dizziness Nose/Mouth/Throat: absent: Epistaxis - Cardiovascular Cardiovascular: absent: Acrocyanosis, Chest Pain, Diaphoresis, Leg Edema, Palpitations, Syncope - Respiratory Respiratory: absent: Cough, Dyspnea, Hemoptysis - Gastrointestinal Gastrointestinal: Nausea. absent: Abdominal Pain, Diarrhea, Vomiting - Genitourinary Genitourinary: absent: Change in Urinary Stream - Reproductive: Female Reproductive:Female: Post Menopausal Past Patient History - Infectious Disease Hx of Infectious Diseases: None - Past Medical History & Family History Past Medical History?: Yes - Past Social History Smoking Status: Former Smoker - CARDIAC Hx Congestive Heart Failure: Yes Hx Hypercholesterolemia: Yes Hx Hypertension: Yes Hx Pacemaker: No Hx Peripheral Edema: Yes - PULMONARY Hx Asthma: Yes Hx Chronic Obstructive Pulmonary Disease (COPD): Yes - NEUROLOGICAL Hx Neurological Disorder: No Hx Paralysis: No - HEENT Hx HEENT Problems: Yes Hx Cataracts: Yes (BILATERAL) - RENAL Hx Chronic Kidney Disease: Yes Hx Kidney Stones: Yes - ENDOCRINE/METABOLIC Hx Endocrine Disorders: No - HEMATOLOGICAL/ONCOLOGICAL Hx Anemia: Yes Hx Human Immunodeficiency Virus (HIV): Yes - INTEGUMENTARY Hx Dermatological Problems: No - MUSCULOSKELETAL/RHEUMATOLOGICAL Hx Arthritis: Yes Hx Osteoporosis: Yes - GASTROINTESTINAL Hx Gastritis: Yes Hx Pancreatitis: Yes - GENITOURINARY/GYNECOLOGICAL Other/Comment: NEPHROSTOMY TUBES - PSYCHIATRIC Hx Anxiety: Yes Hx Depression: Yes Hx Substance Use: No - SURGICAL HISTORY Hx Cholecystectomy: Yes - ANESTHESIA Hx Anesthesia: Yes Hx Anesthesia Reactions: No Hx Malignant Hyperthermia: No Meds Allergies/Adverse Reactions: Allergies Allergy/AdvReac Type Severity Reaction Status Date / Time aloe vera Allergy Severe ITCHING Verified 04/16/18 13:44 Sulfa (Sulfonamide Allergy Severe ITCHING Verified 04/16/18 13:44 Antibiotics) sulfamethoxazole Allergy Severe ITCHING Verified 04/16/18 13:44 [From Bactrim] Physical Exam - Constitutional Appears: Non-toxic - Head Exam Head Exam: ATRAUMATIC - Eye Exam Eye Exam: EOMI - ENT Exam ENT Exam: Mucous Membranes Moist - Neck Exam Neck exam: Negative for: Lymphadenopathy, Thyromegaly - Respiratory Exam Respiratory Exam: Clear to Auscultation Bilateral. absent: Rales - Cardiovascular Exam Cardiovascular Exam: REGULAR RHYTHM, Systolic Murmur - GI/Abdominal Exam GI & Abdominal Exam: Normal Bowel Sounds. absent: Organomegaly Additional comments: ileostomy, nephrostomy - Rectal Exam Rectal Exam: Deferred - Extremities Exam Extremities exam: Positive for: normal capillary refill. Negative for: calf tenderness - Neurological Exam Neurological exam: Alert, Oriented x3 - Psychiatric Exam Psychiatric exam: Anxious - Skin Skin Exam: Dry Results - Vital Signs Recent Vital Signs: Last Vital Signs Temp 98.4 F 04/16/18 16:49 Pulse 84 04/16/18 16:49 Resp 18 04/16/18 16:49 BP 137/86 04/16/18 16:49 Pulse Ox 99 04/16/18 18:48 - Labs Result Diagrams: 04/16/18 16:15 04/16/18 16:15 Labs: Laboratory Results - last 24 hr 04/16/18 04/16/18 04/16/18 16:15 16:15 16:15 WBC 8.2 RBC 4.23 Hgb 11.0 Hct 33.8 L MCV 79.8 L MCH 26.1 L MCHC 32.7 L RDW 17.7 H Plt Count 214 MPV 9.7 Neut % (Auto) 61.2 Lymph % (Auto) 29.1 [place] % (Auto) 8.5 Eos % (Auto) 0.9 Baso % (Auto) 0.3 Neut # (Auto) 5.0 Lymph # (Auto) 2.4 [place] # (Auto) 0.7 Eos # (Auto) 0.1 Baso # (Auto) 0.0 Sodium 141 Potassium 4.1 Chloride 108 H Carbon Dioxide 22 Anion Gap 15 BUN 27 H Creatinine 1.5 H Est GFR ( Amer) 43 Est GFR (Non-Af Amer) 35 Random Glucose 87 Calcium 9.8 Total Bilirubin 0.4 AST 17 ALT 21 Alkaline Phosphatase 83 Total Protein 8.0 Albumin 4.3 Globulin 3.6 Albumin/Globulin Ratio 1.2 Urine Color Yellow Urine Clarity Hazy Urine pH 9.0 Ur Specific [place] 1.014 Urine Protein 2+ H Urine Glucose (UA) Normal Urine Ketones Negative Urine Blood 1+ H Urine Nitrate Negative Urine Bilirubin Negative Urine Urobilinogen Normal Ur Leukocyte Esterase Trace H Urine WBC (Auto) 5 Urine RBC (Auto) 25 H Ur Squamous Epith Cells 3 Triple Phos Crystals Occ H Urine Bacteria Mod H Assessment & Plan (1) Infection associated with nephrostomy catheter Status: Acute (2) Intractable pain Status: Acute (3) Cancer of cervix Status: Chronic (4) Colostomy care Status: Chronic (5) HIV (human immunodeficiency virus infection) Status: Chronic (6) History of depression Status: Chronic Decision To Admit - Pt Status Changed To: Hospital Disposition Of: Inpatient - Admit Certification Admit to Inpatient:: After my assessment, the patient will require hospitalization for at least two midnights. This is because of the severity of symptoms shown, intensity of services needed, and/or the medical risk in this patient being treated as an outpatient. - InPatient: Physician Admission Certification:: yes - . Bed Request Type: Regular
[2018-04-16] MEDS: Sodium Chloride 0.9% 1,000 ML IV SCH (20:06)
[2018-04-16] MEDS: Vancomycin 1 gm/NS 200 ml 1 GM/200 ML BAG IVPB SCH (21:03)
[2018-04-16 23:51] VITALS: RESP 20
[2018-04-17] MEDS: Sodium Chloride 0.9% 1,000 ML IV SCH (00:24)
[2018-04-17] MEDS: Pantoprazole 40 mg EC Tab PO SCH (09:56)
[2018-04-17] MEDS: Oxybutynin XL 10 mg Tab PO SCH (09:57)
[2018-04-17] MEDS ORDERED: Enoxaparin 40 mg Syringe SC SCH (10:00)
--- NOTE | 2018-04-17 12:14 | CP.PCM.CON ---
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 . Patient states she has UTI, which she was informed was complicated and requires IV antibiotics as oral antibiotics will not work. She denies fever, vomiting, dyspnea. Patient is presently on TIVICAY. Norvir, Prezista HAART therapy and is very compliant with her medications. 12 point ROS unremarkable unless otherwise noted. PMHx: Noted as above PSHx: Noted as above Meds: As per SEP, reviewed and confirmed All: aloe vera, sulfa- rash SHx: Used to smoke 5 cigarettes per day x 2-3 years quit 2000, denied ETOH, or illicit drug use FHx: Mother of colon CA 60s, father bone cancer 80s, sister and brother of MIs PMD/ ID: Dr. Nichole Urology: [facility] Cardio: George Review of Systems - Constitutional Constitutional: absent: Chills (or rhonchi [place] and: [place] thousand any medical management will initiate antibiotic event Mrs. Gamble week in the), Fever - EENT Eyes: absent: Change in Vision, Floaters Nose/Mouth/Throat: absent: Mouth Lesions, Odynophagia - Cardiovascular Cardiovascular: absent: Chest Pain, Dyspnea - Respiratory Respiratory: absent: Cough, Chest Congestion - Gastrointestinal Gastrointestinal: Abdominal Pain (left flank pain.), Nausea. absent: Diarrhea, Vomiting - Genitourinary Genitourinary: Flank Pain (left side more than right), Pyuria, Freq UTI, Hx /R enal Surgery (bilateral urinary stents external with greenish urine.) - Menstruation Menstruation: S/P Hysterectomy - Musculoskeletal Musculoskeletal: Back Pain - Neurological Neurological: Headaches (history of migraine headaches.) - Hematologic/Lymphatic Hematologic: As Per HPI. absent: Easy Bleeding, Easy Bruising Past Patient History - Infectious Disease Hx of Infectious Diseases: None - Past Medical History & Family History Past Medical History?: Yes - Past Social History Smoking Status: Former Smoker - CARDIAC Hx Congestive Heart Failure: Yes Hx Hypercholesterolemia: Yes Hx Hypertension: Yes Hx Pacemaker: No Hx Peripheral Edema: Yes - PULMONARY Hx Asthma: Yes Hx Chronic Obstructive Pulmonary Disease (COPD): Yes - NEUROLOGICAL Hx Neurological Disorder: No Hx Paralysis: No - HEENT Hx HEENT Problems: Yes Hx Cataracts: Yes (BILATERAL) - RENAL Hx Chronic Kidney Disease: Yes Hx Kidney Stones: Yes - ENDOCRINE/METABOLIC Hx Endocrine Disorders: No - HEMATOLOGICAL/ONCOLOGICAL Hx Anemia: Yes Hx Human Immunodeficiency Virus (HIV): Yes - INTEGUMENTARY Hx Dermatological Problems: No - MUSCULOSKELETAL/RHEUMATOLOGICAL Hx Falls: No - GASTROINTESTINAL Hx Gastritis: Yes Hx Pancreatitis: Yes - GENITOURINARY/GYNECOLOGICAL Other/Comment: NEPHROSTOMY TUBES - PSYCHIATRIC Hx Substance Use: No - SURGICAL HISTORY Hx Cholecystectomy: Yes - ANESTHESIA Hx Anesthesia: Yes Hx Anesthesia Reactions: No Hx Malignant Hyperthermia: No Has any member of the family had a problem w/ anesthesia?: No Meds Allergies/Adverse Reactions: Allergies Allergy/AdvReac Type Severity Reaction Status Date / Time aloe vera Allergy Severe ITCHING Verified 04/16/18 13:44 Sulfa (Sulfonamide Allergy Severe ITCHING Verified 04/16/18 13:44 Antibiotics) sulfamethoxazole Allergy Severe ITCHING Verified 04/16/18 13:44 [From Bactrim] - Medications Medications: Current Medications Acetaminophen (Tylenol 325mg Tab) 650 mg PO Q6 PRN PRN Reason: Fever >100.4 F Albuterol (Ventolin Hfa 90 Mcg/Actuation (8 G)) 2 puff INH RQ4 PRN PRN Reason: Shortness of Breath Aspirin (Ecotrin) 81 mg PO HS [facility] Last Admin: 04/17/18 00:28 Dose: 81 mg Darunavir (Prezista) 800 mg PO DAILY [facility]; Protocol Last Admin: 04/17/18 09:56 Dose: 800 mg Docusate Sodium (Colace) 100 mg PO BID [facility] Last Admin: 04/17/18 09:56 Dose: 100 mg Dolutegravir Sodium (Tivicay) 50 mg PO DAILY [facility]; Protocol Last Admin: 04/17/18 09:56 Dose: 50 mg Escitalopram Oxalate (Lexapro) 5 mg PO DAILY [facility] Last Admin: 04/17/18 09:56 Dose: 5 mg Famciclovir (Famvir) 500 mg PO DAILY [facility]; Protocol Last Admin: 04/17/18 09:56 Dose: 500 mg Heparin Sodium (Porcine) (Heparin) 5,000 units SC Q12H [facility] Hydromorphone HCl (Dilaudid) 1 mg IVP Q6H PRN PRN Reason: Pain, severe (8-10) Sodium Chloride (Sodium Chloride 0.9%) 1,000 mls @ 60 mls/hr IV .[id number] [facility] Last Admin: 04/17/18 00:24 Dose: 60 mls/hr Vancomycin/Sodium Chloride (Vancomycin 1 Gm/Ns 200 Ml) 1 gm in 200 mls @ 133.3 33 mls/hr IVPB Q24H [facility]; Protocol Stop: 04/21/18 21:01 Last Admin: 04/16/18 21:03 Dose: 133.333 mls/hr Ceftriaxone Sodium 1 gm/ (Sodium Chloride) 100 mls @ 100 mls/hr IVPB DAILY [facility]; Protocol Last Admin: 04/17/18 09:57 Dose: 100 mls/hr Loratadine (Claritin) 10 mg PO DAILY [facility] Last Admin: 04/17/18 09:56 Dose: 10 mg Losartan Potassium (Cozaar) 100 mg PO DAILY [facility] Last Admin: 04/17/18 09:56 Dose: 100 mg Metoprolol Tartrate (Lopressor) 100 mg PO HS [facility] Last Admin: 04/17/18 00:28 Dose: 100 mg Montelukast Sodium (Singulair) 10 mg PO QPM [facility] Ondansetron HCl (Zofran Inj) 4 mg IVP Q6 PRN PRN Reason: Nausea/Vomiting Oxybutynin Chloride (Ditropan Xl) 5 mg PO DAILY [facility] Last Admin: 04/17/18 09:57 Dose: 5 mg Oxycodone/Acetaminophen (Percocet 5/325 Mg Tab) 1 tab PO Q6H PRN PRN Reason: Pain, severe (8-10) Stop: 04/19/18 19:03 Pantoprazole Sodium (Protonix Ec Tab) 40 mg PO DAILY [facility] Last Admin: 04/17/18 09:56 Dose: 40 mg Ritonavir (Norvir) 100 mg PO DAILY [facility]; Protocol Last Admin: 04/17/18 09:56 Dose: 100 mg Sucralfate (Carafate Tab) 1 gm PO BID [facility] Last Admin: 04/17/18 09:57 Dose: 1 gm Temazepam (Restoril) 15 mg PO HS [facility] Last Admin: 04/16/18 23:27 Dose: Not Given Results - Vital Signs Recent Vital Signs: Last Vital Signs Temp 98.0 F 04/17/18 07:57 Pulse 72 04/17/18 07:57 Resp 20 04/17/18 07:57 BP 144/84 04/17/18 07:57 Pulse Ox 99 04/17/18 07:57 - Labs Result Diagrams: 04/16/18 16:15 04/16/18 16:15 Labs: Laboratory Results - last 24 hr 04/16/18 04/16/18 04/16/18 16:15 16:15 16:15 WBC 8.2 RBC 4.23 Hgb 11.0 Hct 33.8 L MCV 79.8 L MCH 26.1 L MCHC 32.7 L RDW 17.7 H Plt Count 214 MPV 9.7 Neut % (Auto) 61.2 Lymph % (Auto) 29.1 [place] % (Auto) 8.5 Eos % (Auto) 0.9 Baso % (Auto) 0.3 Neut # (Auto) 5.0 Lymph # (Auto) 2.4 [place] # (Auto) 0.7 Eos # (Auto) 0.1 Baso # (Auto) 0.0 Sodium 141 Potassium 4.1 Chloride 108 H Carbon Dioxide 22 Anion Gap 15 BUN 27 H Creatinine 1.5 H Est GFR ( Amer) 43 Est GFR (Non-Af Amer) 35 Random Glucose 87 Calcium 9.8 Total Bilirubin 0.4 AST 17 ALT 21 Alkaline Phosphatase 83 Total Protein 8.0 Albumin 4.3 Globulin 3.6 Albumin/Globulin Ratio 1.2 Urine Color Yellow Urine Clarity Hazy Urine pH 9.0 Ur Specific [place] 1.014 Urine Protein 2+ H Urine Glucose (UA) Normal Urine Ketones Negative Urine Blood 1+ H Urine Nitrate Negative Urine Bilirubin Negative Urine Urobilinogen Normal Ur Leukocyte Esterase Trace H Urine WBC (Auto) 5 Urine RBC (Auto) 25 H Ur Squamous Epith Cells 3 Triple Phos Crystals Occ H Urine Bacteria Mod H
--- NOTE | 2018-04-17 12:50 | CP.PCM.PN ---
Subjective - Date & Time of Evaluation Date of Evaluation: 04/17/18 Time of Evaluation: 12:00 - Subjective Subjective: Still with pain, seen by infectious disease, undetectable viral load, follow-up with interventional radiology for change of her catheter Objective - Vital Signs/Intake and Output Vital Signs (last 24 hours): Temp Pulse Resp BP Pulse Ox 98.0 F 72 20 144/84 99 04/17/18 07:57 04/17/18 07:57 04/17/18 07:57 04/17/18 07:57 04/17/18 07:57 Intake and Output: 04/17/18 04/17/18 06:59 18:59 Intake Total 48 Balance 48 - Medications Medications: Current Medications Acetaminophen (Tylenol 325mg Tab) 650 mg PO Q6 PRN PRN Reason: Fever >100.4 F Albuterol (Ventolin Hfa 90 Mcg/Actuation (8 G)) 2 puff INH RQ4 PRN PRN Reason: Shortness of Breath Aspirin (Ecotrin) 81 mg PO HS [facility] Last Admin: 04/17/18 00:28 Dose: 81 mg Darunavir (Prezista) 800 mg PO DAILY [facility]; Protocol Last Admin: 04/17/18 09:56 Dose: 800 mg Docusate Sodium (Colace) 100 mg PO BID [facility] Last Admin: 04/17/18 09:56 Dose: 100 mg Dolutegravir Sodium (Tivicay) 50 mg PO DAILY [facility]; Protocol Last Admin: 04/17/18 09:56 Dose: 50 mg Escitalopram Oxalate (Lexapro) 5 mg PO DAILY [facility] Last Admin: 04/17/18 09:56 Dose: 5 mg Famciclovir (Famvir) 500 mg PO DAILY [facility]; Protocol Last Admin: 04/17/18 09:56 Dose: 500 mg Heparin Sodium (Porcine) (Heparin) 5,000 units SC Q12H [facility] Hydromorphone HCl (Dilaudid) 1 mg IVP Q6H PRN PRN Reason: Pain, severe (8-10) Sodium Chloride (Sodium Chloride 0.9%) 1,000 mls @ 60 mls/hr IV .[id number] [facility] Last Admin: 04/17/18 00:24 Dose: 60 mls/hr Vancomycin/Sodium Chloride (Vancomycin 1 Gm/Ns 200 Ml) 1 gm in 200 mls @ 133.333 mls/hr IVPB Q24H [facility]; Protocol Stop: 04/21/18 21:01 Last Admin: 04/16/18 21:03 Dose: 133.333 mls/hr Ceftriaxone Sodium 1 gm/ (Sodium Chloride) 100 mls @ 100 mls/hr IVPB DAILY [facility]; Protocol Last Admin: 04/17/18 09:57 Dose: 100 mls/hr Loratadine (Claritin) 10 mg PO DAILY [facility] Last Admin: 04/17/18 09:56 Dose: 10 mg Losartan Potassium (Cozaar) 100 mg PO DAILY [facility] Last Admin: 04/17/18 09:56 Dose: 100 mg Metoprolol Tartrate (Lopressor) 100 mg PO HS [facility] Last Admin: 04/17/18 00:28 Dose: 100 mg Montelukast Sodium (Singulair) 10 mg PO QPM [facility] Ondansetron HCl (Zofran Inj) 4 mg IVP Q6 PRN PRN Reason: Nausea/Vomiting Last Admin: 04/17/18 12:15 Dose: 4 mg Oxybutynin Chloride (Ditropan Xl) 5 mg PO DAILY [facility] Last Admin: 04/17/18 09:57 Dose: 5 mg Oxycodone/Acetaminophen (Percocet 5/325 Mg Tab) 1 tab PO Q6H PRN PRN Reason: Pain, severe (8-10) Stop: 04/19/18 19:03 Pantoprazole Sodium (Protonix Ec Tab) 40 mg PO DAILY [facility] Last Admin: 04/17/18 09:56 Dose: 40 mg Ritonavir (Norvir) 100 mg PO DAILY [facility]; Protocol Last Admin: 04/17/18 09:56 Dose: 100 mg Sucralfate (Carafate Tab) 1 gm PO BID [facility] Last Admin: 04/17/18 09:57 Dose: 1 gm Temazepam (Restoril) 15 mg PO HS [facility] Last Admin: 04/16/18 23:27 Dose: Not Given - Labs Labs: 04/16/18 16:15 04/16/18 16:15 - Constitutional Appears: Non-toxic - Head Exam Head Exam: ATRAUMATIC - Eye Exam Eye Exam: EOMI - ENT Exam ENT Exam: Mucous Membranes Moist - Neck Exam Neck Exam: absent: Lymphadenopathy, Thyromegaly - Respiratory Exam Respiratory Exam: Clear to Ausculation Bilateral. absent: Rales - Cardiovascular Exam Cardiovascular Exam: REGULAR RHYTHM. absent: Murmur - GI/Abdominal Exam GI & Abdominal Exam: Normal Bowel Sounds. absent: Organomegaly - Rectal Exam Rectal Exam: Deferred - Extremities Exam Extremities Exam: Normal Capillary Refill. absent: Calf Tenderness - Neurological Exam Neurological Exam: Alert, Normal Gait - Psychiatric Exam Psychiatric exam: Normal Mood - Skin Skin Exam: Dry Assessment and Plan (1) Infection associated with nephrostomy catheter Status: Acute (2) Intractable pain Status: Acute (3) Cancer of cervix Status: Chronic (4) Colostomy care Status: Chronic (5) HIV (human immunodeficiency virus infection) Status: Chronic (6) History of depression Status: Chronic
[2018-04-17] MEDS: Vancomycin 1 gm/NS 200 ml 1 GM/200 ML BAG IVPB SCH (20:40)
[2018-04-17] MEDS: HYDROmorphone 1 mg/ml ISec IVP PRN (20:43)
[2018-04-18] MEDS: HYDROmorphone 1 mg/ml ISec IVP PRN ×3 (02:46→16:32)
[2018-04-18 07:03] LABS: ALB/GLOB RATIO 1.3 (1.0-2.1); ALBUMIN 3.6 g/dL (3.5-5.0); CALCIUM 8.9 mg/dl (8.6-10.4)
[2018-04-18 07:14] LABS: BASO % 0.5 % (0.0-2.0); EOS # 0.1 K/uL (0.0-0.7); HEMOGLOBIN 10.2 g/dL (11.0-16.0); LYMPH # 1.9 K/uL (1.0-4.3); LYMPH % 31.4 % (20.0-40.0); MEAN CELL VOLUME 80.4 fL (81.0-99.0); MEAN CORPUSCULAR HEMOGLOBIN 25.7 pg (27.0-31.0); MEAN CORPUSCULAR HGB CONC 31.9 g/dL (33.0-37.0); MONO # 0.6 K/uL (0.0-0.8); MONO % 9.4 % (0.0-10.0); NEUT # 3.4 K/uL (1.8-7.0); NEUT % 56.7 % (50.0-75.0); RBC 3.98 Mil/uL (3.80-5.20); RED CELL DISTRIBUTION WIDTH 17.8 % (11.5-14.5); WHITE BLOOD COUNT 6.1 K/uL (4.8-10.8)
--- NOTE | 2018-04-18 08:07 | CARD ---
APPROVED REPORT Date of service: 04/16/2018 EKG Measurement Heart [id number] <Conclusion> Normal sinus rhythm Nonspecific ST abnormality Abnormal ECG
[2018-04-18] MEDS: Pantoprazole 40 mg EC Tab PO SCH (10:01)
[2018-04-18] MEDS: Oxybutynin XL 10 mg Tab PO SCH (10:13)
--- NOTE | 2018-04-18 18:42 | CP.PCM.PN ---
Subjective - Date & Time of Evaluation Date of Evaluation: 04/18/18 Time of Evaluation: 09:00 - Subjective Subjective: urine c/s noted improving Objective - Vital Signs/Intake and Output Vital Signs (last 24 hours): Temp Pulse Resp BP Pulse Ox 98 F 78 20 117/71 96 04/18/18 15:50 04/18/18 15:50 04/18/18 15:50 04/18/18 15:50 04/18/18 15:50 Intake and Output: 04/18/18 04/18/18 06:59 18:59 Intake Total 1650 480 Output Total 1000 550 Balance 650 -70 - Medications Medications: Current Medications Acetaminophen (Tylenol 325mg Tab) 650 mg PO Q6 PRN PRN Reason: Fever >100.4 F Albuterol (Ventolin Hfa 90 Mcg/Actuation (8 G)) 2 puff INH RQ4 PRN PRN Reason: Shortness of Breath Aspirin (Ecotrin) 81 mg PO HS [facility] Last Admin: 04/17/18 21:57 Dose: 81 mg Darunavir (Prezista) 800 mg PO DAILY [facility]; Protocol Last Admin: 04/18/18 10:12 Dose: 800 mg Docusate Sodium (Colace) 100 mg PO BID [facility] Last Admin: 04/18/18 18:05 Dose: Not Given Dolutegravir Sodium (Tivicay) 50 mg PO DAILY [facility]; Protocol Last Admin: 04/18/18 10:12 Dose: 50 mg Escitalopram Oxalate (Lexapro) 5 mg PO DAILY [facility] Last Admin: 04/18/18 10:13 Dose: 5 mg Famciclovir (Famvir) 500 mg PO DAILY [facility]; Protocol Last Admin: 04/18/18 10:12 Dose: 500 mg Heparin Sodium (Porcine) (Heparin) 5,000 units SC Q12H [facility] Last Admin: 04/18/18 09:00 Dose: 5,000 units Hydromorphone HCl (Dilaudid) 1 mg IVP Q6H PRN PRN Reason: Pain, severe (8-10) Last Admin: 04/18/18 16:32 Dose: 1 mg Sodium Chloride (Sodium Chloride 0.9%) 1,000 mls @ 60 mls/hr IV .[id number] [facility] Last Admin: 04/17/18 00:24 Dose: 60 mls/hr Vancomycin/Sodium Chloride (Vancomycin 1 Gm/Ns 200 Ml) 1 gm in 200 mls @ 133.333 mls/hr IVPB Q24H [facility]; Protocol Stop: 04/21/18 21:01 Last Admin: 04/17/18 20:40 Dose: 133.333 mls/hr Ceftriaxone Sodium 1 gm/ (Sodium Chloride) 100 mls @ 100 mls/hr IVPB DAILY [facility]; Protocol Last Admin: 04/18/18 09:57 Dose: 100 mls/hr Loratadine (Claritin) 10 mg PO DAILY [facility] Last Admin: 04/18/18 10:01 Dose: 10 mg Losartan Potassium (Cozaar) 100 mg PO DAILY [facility] Last Admin: 04/18/18 10:01 Dose: 100 mg Metoprolol Tartrate (Lopressor) 100 mg PO HS [facility] Last Admin: 04/17/18 21:57 Dose: 100 mg Montelukast Sodium (Singulair) 10 mg PO QPM [facility] Last Admin: 04/18/18 18:05 Dose: 10 mg Ondansetron HCl (Zofran Inj) 4 mg IVP Q6 PRN PRN Reason: Nausea/Vomiting Last Admin: 04/18/18 12:15 Dose: 4 mg Oxybutynin Chloride (Ditropan Xl) 5 mg PO DAILY [facility] Last Admin: 04/18/18 10:13 Dose: 5 mg Oxycodone/Acetaminophen (Percocet 5/325 Mg Tab) 1 tab PO Q6H PRN PRN Reason: Pain, severe (8-10) Stop: 04/19/18 19:03 Pantoprazole Sodium (Protonix Ec Tab) 40 mg PO DAILY [facility] Last Admin: 04/18/18 10:01 Dose: 40 mg Ritonavir (Norvir) 100 mg PO DAILY [facility]; Protocol Last Admin: 04/18/18 10:13 Dose: 100 mg Sucralfate (Carafate Tab) 1 gm PO BID [facility] Last Admin: 04/18/18 18:05 Dose: Not Given Temazepam (Restoril) 15 mg PO HS [facility] Last Admin: 04/17/18 21:58 Dose: Not Given - Labs Labs: 04/18/18 06:33 04/18/18 06:33 - Constitutional Appears: Non-toxic, Chronically Ill - Head Exam Head Exam: NORMOCEPHALIC - Eye Exam Eye Exam: PERRL - ENT Exam ENT Exam: Mucous Membranes Dry - Neck Exam Neck Exam: absent: Lymphadenopathy - Respiratory Exam Respiratory Exam: Decreased Breath Sounds - Cardiovascular Exam Cardiovascular Exam: REGULAR RHYTHM - GI/Abdominal Exam GI & Abdominal Exam: Distended, Soft Assessment and Plan (1) Complicated urinary tract infection Status: Acute - Assessment and Plan (Free Text) Assessment: cont iv rocephin
--- NOTE | 2018-04-18 19:12 | CP.PCM.PN ---
Subjective - Date & Time of Evaluation Date of Evaluation: 04/18/18 Time of Evaluation: 12:00 - Subjective Subjective: less pain, no fever Objective - Vital Signs/Intake and Output Vital Signs (last 24 hours): Temp Pulse Resp BP Pulse Ox 98 F 78 20 117/71 96 04/18/18 15:50 04/18/18 15:50 04/18/18 15:50 04/18/18 15:50 04/18/18 15:50 Intake and Output: 04/18/18 04/19/18 18:59 06:59 Intake Total 480 Output Total 550 Balance -70 - Medications Medications: Current Medications Acetaminophen (Tylenol 325mg Tab) 650 mg PO Q6 PRN PRN Reason: Fever >100.4 F Albuterol (Ventolin Hfa 90 Mcg/Actuation (8 G)) 2 puff INH RQ4 PRN PRN Reason: Shortness of Breath Aspirin (Ecotrin) 81 mg PO HS [facility] Last Admin: 04/17/18 21:57 Dose: 81 mg Darunavir (Prezista) 800 mg PO DAILY [facility]; Protocol Last Admin: 04/18/18 10:12 Dose: 800 mg Docusate Sodium (Colace) 100 mg PO BID [facility] Last Admin: 04/18/18 18:05 Dose: Not Given Dolutegravir Sodium (Tivicay) 50 mg PO DAILY [facility]; Protocol Last Admin: 04/18/18 10:12 Dose: 50 mg Escitalopram Oxalate (Lexapro) 5 mg PO DAILY [facility] Last Admin: 04/18/18 10:13 Dose: 5 mg Famciclovir (Famvir) 500 mg PO DAILY [facility]; Protocol Last Admin: 04/18/18 10:12 Dose: 500 mg Heparin Sodium (Porcine) (Heparin) 5,000 units SC Q12H [facility] Last Admin: 04/18/18 09:00 Dose: 5,000 units Hydromorphone HCl (Dilaudid) 1 mg IVP Q6H PRN PRN Reason: Pain, severe (8-10) Last Admin: 04/18/18 16:32 Dose: 1 mg Sodium Chloride (Sodium Chloride 0.9%) 1,000 mls @ 60 mls/hr IV .[id number] [facility] Last Admin: 04/17/18 00:24 Dose: 60 mls/hr Vancomycin/Sodium Chloride (Vancomycin 1 Gm/Ns 200 Ml) 1 gm in 200 mls @ 133.333 mls/hr IVPB Q24H [facility]; Protocol Stop: 04/21/18 21:01 Last Admin: 04/17/18 20:40 Dose: 133.333 mls/hr Ceftriaxone Sodium 1 gm/ (Sodium Chloride) 100 mls @ 100 mls/hr IVPB DAILY [facility]; Protocol Last Admin: 04/18/18 09:57 Dose: 100 mls/hr Loratadine (Claritin) 10 mg PO DAILY [facility] Last Admin: 04/18/18 10:01 Dose: 10 mg Losartan Potassium (Cozaar) 100 mg PO DAILY [facility] Last Admin: 04/18/18 10:01 Dose: 100 mg Metoprolol Tartrate (Lopressor) 100 mg PO HS [facility] Last Admin: 04/17/18 21:57 Dose: 100 mg Montelukast Sodium (Singulair) 10 mg PO QPM [facility] Last Admin: 04/18/18 18:05 Dose: 10 mg Ondansetron HCl (Zofran Inj) 4 mg IVP Q6 PRN PRN Reason: Nausea/Vomiting Last Admin: 04/18/18 12:15 Dose: 4 mg Oxybutynin Chloride (Ditropan Xl) 5 mg PO DAILY [facility] Last Admin: 04/18/18 10:13 Dose: 5 mg Oxycodone/Acetaminophen (Percocet 5/325 Mg Tab) 1 tab PO Q6H PRN PRN Reason: Pain, severe (8-10) Stop: 04/19/18 19:03 Pantoprazole Sodium (Protonix Ec Tab) 40 mg PO DAILY [facility] Last Admin: 04/18/18 10:01 Dose: 40 mg Ritonavir (Norvir) 100 mg PO DAILY [facility]; Protocol Last Admin: 04/18/18 10:13 Dose: 100 mg Sucralfate (Carafate Tab) 1 gm PO BID [facility] Last Admin: 04/18/18 18:05 Dose: Not Given Temazepam (Restoril) 15 mg PO HS [facility] Last Admin: 04/17/18 21:58 Dose: Not Given - Labs Labs: 04/18/18 06:33 04/18/18 06:33 - Constitutional Appears: Non-toxic - Head Exam Head Exam: ATRAUMATIC - Eye Exam Eye Exam: EOMI - ENT Exam ENT Exam: Mucous Membranes Moist - Neck Exam Neck Exam: absent: Lymphadenopathy, Thyromegaly - Respiratory Exam Respiratory Exam: Clear to Ausculation Bilateral. absent: Rales - Cardiovascular Exam Cardiovascular Exam: Murmur. absent: REGULAR RHYTHM - GI/Abdominal Exam GI & Abdominal Exam: Normal Bowel Sounds. absent: Organomegaly - Rectal Exam Rectal Exam: absent: Deferred - Extremities Exam Extremities Exam: Normal Capillary Refill. absent: Calf Tenderness - Neurological Exam Neurological Exam: Oriented x3. absent: Alert - Psychiatric Exam Psychiatric exam: Normal Mood - Skin Skin Exam: Dry Assessment and Plan (1) Infection associated with nephrostomy catheter Status: Acute (2) Intractable pain Status: Acute (3) Cancer of cervix Status: Chronic (4) Colostomy care Status: Chronic (5) HIV (human immunodeficiency virus infection) Status: Chronic (6) History of depression Status: Chronic
[2018-04-18 19:37] LABS: INR 1.1; PROTHROMBIN TIME 11.8 SECONDS (9.7-12.2)
[2018-04-18] MEDS: Vancomycin 1 gm/NS 200 ml 1 GM/200 ML BAG IVPB SCH (20:25)
[2018-04-19] MEDS: Sodium Chloride 0.9% 1,000 ML IV SCH (02:38)
--- NOTE | 2018-04-19 06:28 | CON ---
DATE: 04/17/2018 HISTORY OF PRESENT ILLNESS: The patient was admitted through the ER, and I was called because of infected UTI. The patient has bilateral nephrostomy changed in January, recently started having pain on and off. The urine culture which was done by Dr. Romeo revealed bacteria resident. The patient was started on vancomycin in the ER, and the patient has no pelvic pain, voiding well, she was not even urinating from the bladder and not dripping any urine. The nephrostomy draining the kidney very well. PHYSICAL EXAMINATION: Abdomen is soft. No flank tenderness. No kidney palpable. No suprapubic fullness. Colostomy working fine. Nephrostomy functioning well, expect for the infection and change in the color. There is no bleeding and no clots. IMPRESSION: Bilateral nephrostomy, chronic urinary tract infection related to the nephrostomy. PLAN: Continue the vancomycin, and I would speak to the radiologist for changing the bilateral nephrostomy. Cece Knutson MD
--- NOTE | 2018-04-19 06:28 | PN ---
DATE: 04/18/2018 FOLLOWUP The patient admitted with intractable UTI. She has today less pain. No flank tenderness. Nephrostomy functioning well. The patient is scheduled to go on 04/19/2018 which is for bilateral stent change in the radiology department and will continue the vancomycin. Cece Knutson MD
[2018-04-19] MEDS ORDERED: Lidocaine 2% PF (10 ml) Amp ONE (10:00)
[2018-04-19] MEDS ORDERED: Midazolam 2 MG/2 ML VIAL ONE (10:10)
[2018-04-19] MEDS ORDERED: Morphine 4 MG/ML VIAL ONE (10:25)
--- NOTE | 2018-04-19 10:29 | PCM.SURG1 ---
Surgeon's Initial Post Op Note - Surgeon's Notes Surgeon: Benjie Cui MD [employer] Technician: NONE Type of Anesthesia: IV Sedation Pre-Operative Diagnosis: Hydronephrosis Operative Findings: Nephrostogram showed mild right and left hydronephrosis Post-Operative Diagnosis: Hydronephrosis Operation Performed: Bilateral nephrostomy tube change Specimen/Specimens Removed: none Estimated Blood Loss: EBL {In ML}: 0 Blood Products Given: N/A Post-Op Condition: Fair Date of Surgery/Procedure: 04/19/18 Time of Surgery/Procedure: 10:20
[2018-04-19] MEDS: HYDROmorphone 1 mg/ml ISec IVP PRN (11:53)
[2018-04-19] MEDS: Pantoprazole 40 mg EC Tab PO SCH (13:00)
--- NOTE | 2018-04-19 17:49 | CP.PCM.PN ---
Subjective - Date & Time of Evaluation Date of Evaluation: 04/19/18 Time of Evaluation: 15:00 - Subjective Subjective: nephrostomy was changed labs ok, f/u with ID for d/c Objective - Vital Signs/Intake and Output Vital Signs (last 24 hours): Temp Pulse Resp BP Pulse Ox 97.9 F 72 20 176/80 H 95 04/19/18 16:00 04/19/18 16:00 04/19/18 16:00 04/19/18 16:00 04/19/18 16:00 Intake and Output: 04/19/18 04/19/18 06:59 18:59 Intake Total 450 Output Total 250 Balance 200 - Medications Medications: Current Medications Acetaminophen (Tylenol 325mg Tab) 650 mg PO Q6 PRN PRN Reason: Fever >100.4 F Last Admin: 04/18/18 20:28 Dose: 650 mg Albuterol (Ventolin Hfa 90 Mcg/Actuation (8 G)) 2 puff INH RQ4 PRN PRN Reason: Shortness of Breath Aspirin (Ecotrin) 81 mg PO HS [facility] Last Admin: 04/18/18 21:37 Dose: 81 mg Darunavir (Prezista) 800 mg PO DAILY [facility]; Protocol Last Admin: 04/19/18 13:10 Dose: 800 mg Docusate Sodium (Colace) 100 mg PO BID [facility] Last Admin: 04/19/18 11:54 Dose: Not Given Dolutegravir Sodium (Tivicay) 50 mg PO DAILY [facility]; Protocol Last Admin: 04/19/18 13:09 Dose: 50 mg Escitalopram Oxalate (Lexapro) 5 mg PO DAILY [facility] Last Admin: 04/19/18 13:09 Dose: 5 mg Famciclovir (Famvir) 500 mg PO DAILY [facility]; Protocol Last Admin: 04/19/18 13:10 Dose: 500 mg Heparin Sodium (Porcine) (Heparin) 5,000 units SC Q12H [facility] Last Admin: 04/19/18 08:25 Dose: Not Given Hydromorphone HCl (Dilaudid) 1 mg IVP Q6H PRN PRN Reason: Pain, severe (8-10) Last Admin: 04/19/18 11:53 Dose: 1 mg Sodium Chloride (Sodium Chloride 0.9%) 1,000 mls @ 60 mls/hr IV .[id number] [facility] Last Admin: 04/19/18 02:38 Dose: 60 mls/hr Vancomycin/Sodium Chloride (Vancomycin 1 Gm/Ns 200 Ml) 1 gm in 200 mls @ 133.333 mls/hr IVPB Q24H [facility]; Protocol Stop: 04/21/18 21:01 Last Admin: 04/18/18 20:25 Dose: 133.333 mls/hr Ceftriaxone Sodium 1 gm/ (Sodium Chloride) 100 mls @ 100 mls/hr IVPB DAILY [facility]; Protocol Last Admin: 04/19/18 13:28 Dose: 100 mls/hr Loratadine (Claritin) 10 mg PO DAILY [facility] Last Admin: 04/19/18 13:01 Dose: 10 mg Losartan Potassium (Cozaar) 100 mg PO DAILY [facility] Last Admin: 04/19/18 13:00 Dose: 100 mg Metoprolol Tartrate (Lopressor) 100 mg PO HS [facility] Last Admin: 04/18/18 21:48 Dose: 100 mg Montelukast Sodium (Singulair) 10 mg PO QPM [facility] Last Admin: 04/18/18 18:05 Dose: 10 mg Ondansetron HCl (Zofran Inj) 4 mg IVP Q6 PRN PRN Reason: Nausea/Vomiting Last Admin: 04/18/18 12:15 Dose: 4 mg Oxybutynin Chloride (Ditropan Xl) 5 mg PO DAILY [facility] Oxycodone/Acetaminophen (Percocet 5/325 Mg Tab) 1 tab PO Q6H PRN PRN Reason: Pain, severe (8-10) Stop: 04/19/18 19:03 Pantoprazole Sodium (Protonix Ec Tab) 40 mg PO DAILY [facility] Last Admin: 04/19/18 13:00 Dose: 40 mg Ritonavir (Norvir) 100 mg PO DAILY [facility]; Protocol Last Admin: 04/19/18 13:09 Dose: 100 mg Sucralfate (Carafate Tab) 1 gm PO BID [facility] Last Admin: 04/19/18 13:01 Dose: Not Given Temazepam (Restoril) 15 mg PO HS [facility] Last Admin: 04/18/18 22:33 Dose: Not Given - Labs Labs: 04/18/18 06:33 04/18/18 06:33 PT 11.8 SECONDS (9.7-12.2) 04/18/18 19:23 INR 1.1 04/18/18 19:23 APTT 27 SECONDS (21-34) 04/18/18 19:23 - Constitutional Appears: Non-toxic - Head Exam Head Exam: ATRAUMATIC - Eye Exam Eye Exam: EOMI - ENT Exam ENT Exam: Mucous Membranes Moist - Neck Exam Neck Exam: absent: Lymphadenopathy, Thyromegaly - Respiratory Exam Respiratory Exam: Clear to Ausculation Bilateral. absent: Rales - Cardiovascular Exam Cardiovascular Exam: REGULAR RHYTHM, Murmur - GI/Abdominal Exam GI & Abdominal Exam: Normal Bowel Sounds. absent: Organomegaly - Rectal Exam Rectal Exam: Deferred - Extremities Exam Extremities Exam: Normal Capillary Refill. absent: Calf Tenderness - Neurological Exam Neurological Exam: Alert, Oriented x3 - Psychiatric Exam Psychiatric exam: Normal Mood - Skin Skin Exam: Dry Assessment and Plan (1) Infection associated with nephrostomy catheter Status: Acute (2) Intractable pain Status: Acute (3) Cancer of cervix Status: Chronic (4) Colostomy care Status: Chronic (5) HIV (human immunodeficiency virus infection) Status: Chronic (6) History of depression Status: Chronic
--- NOTE | 2018-04-19 19:14 | CP.PCM.PN ---
Subjective - Date & Time of Evaluation Date of Evaluation: 04/19/18 Time of Evaluation: 06:00 - Subjective Subjective: EVENTS NOTED CONT IV RX ORDERED Objective - Vital Signs/Intake and Output Vital Signs (last 24 hours): Temp Pulse Resp BP Pulse Ox 97.9 F 72 20 176/80 H 95 04/19/18 16:00 04/19/18 16:00 04/19/18 16:00 04/19/18 16:00 04/19/18 16:00 Intake and Output: 04/19/18 04/20/18 18:59 06:59 Intake Total 450 Output Total 250 Balance 200 - Medications Medications: Current Medications Acetaminophen (Tylenol 325mg Tab) 650 mg PO Q6 PRN PRN Reason: Fever >100.4 F Last Admin: 04/18/18 20:28 Dose: 650 mg Albuterol (Ventolin Hfa 90 Mcg/Actuation (8 G)) 2 puff INH RQ4 PRN PRN Reason: Shortness of Breath Aspirin (Ecotrin) 81 mg PO HS [facility] Last Admin: 04/18/18 21:37 Dose: 81 mg Darunavir (Prezista) 800 mg PO DAILY [facility]; Protocol Last Admin: 04/19/18 13:10 Dose: 800 mg Docusate Sodium (Colace) 100 mg PO BID [facility] Last Admin: 04/19/18 11:54 Dose: Not Given Dolutegravir Sodium (Tivicay) 50 mg PO DAILY [facility]; Protocol Last Admin: 04/19/18 13:09 Dose: 50 mg Escitalopram Oxalate (Lexapro) 5 mg PO DAILY [facility] Last Admin: 04/19/18 13:09 Dose: 5 mg Famciclovir (Famvir) 500 mg PO DAILY [facility]; Protocol Last Admin: 04/19/18 13:10 Dose: 500 mg Heparin Sodium (Porcine) (Heparin) 5,000 units SC Q12H [facility] Last Admin: 04/19/18 08:25 Dose: Not Given Hydromorphone HCl (Dilaudid) 1 mg IVP Q6H PRN PRN Reason: Pain, severe (8-10) Last Admin: 04/19/18 11:53 Dose: 1 mg Sodium Chloride (Sodium Chloride 0.9%) 1,000 mls @ 60 mls/hr IV .[id number] [facility] Last Admin: 04/19/18 02:38 Dose: 60 mls/hr Vancomycin/Sodium Chloride (Vancomycin 1 Gm/Ns 200 Ml) 1 gm in 200 mls @ 133.333 mls/hr IVPB Q24H [facility]; Protocol Stop: 04/21/18 21:01 Last Admin: 04/18/18 20:25 Dose: 133.333 mls/hr Ceftriaxone Sodium 1 gm/ (Sodium Chloride) 100 mls @ 100 mls/hr IVPB DAILY [facility]; Protocol Last Admin: 04/19/18 13:28 Dose: 100 mls/hr Loratadine (Claritin) 10 mg PO DAILY [facility] Last Admin: 04/19/18 13:01 Dose: 10 mg Losartan Potassium (Cozaar) 100 mg PO DAILY [facility] Last Admin: 04/19/18 13:00 Dose: 100 mg Metoprolol Tartrate (Lopressor) 100 mg PO HS [facility] Last Admin: 04/18/18 21:48 Dose: 100 mg Montelukast Sodium (Singulair) 10 mg PO QPM [facility] Last Admin: 04/19/18 17:53 Dose: 10 mg Ondansetron HCl (Zofran Inj) 4 mg IVP Q6 PRN PRN Reason: Nausea/Vomiting Last Admin: 04/18/18 12:15 Dose: 4 mg Oxybutynin Chloride (Ditropan Xl) 5 mg PO DAILY [facility] Pantoprazole Sodium (Protonix Ec Tab) 40 mg PO DAILY [facility] Last Admin: 04/19/18 13:00 Dose: 40 mg Ritonavir (Norvir) 100 mg PO DAILY [facility]; Protocol Last Admin: 04/19/18 13:09 Dose: 100 mg Sucralfate (Carafate Tab) 1 gm PO BID [facility] Last Admin: 04/19/18 13:01 Dose: Not Given Temazepam (Restoril) 15 mg PO HS [facility] Last Admin: 04/18/18 22:33 Dose: Not Given - Labs Labs: 04/18/18 06:33 04/18/18 06:33 PT 11.8 SECONDS (9.7-12.2) 04/18/18 19:23 INR 1.1 04/18/18 19:23 APTT 27 SECONDS (21-34) 04/18/18 19:23 - Constitutional Appears: Non-toxic, Chronically Ill - Head Exam Head Exam: NORMOCEPHALIC - Eye Exam Eye Exam: PERRL - ENT Exam ENT Exam: Mucous Membranes Dry - Neck Exam Neck Exam: absent: Lymphadenopathy - Respiratory Exam Respiratory Exam: Decreased Breath Sounds - Cardiovascular Exam Cardiovascular Exam: REGULAR RHYTHM - GI/Abdominal Exam GI & Abdominal Exam: Distended, Soft Assessment and Plan (1) Complicated urinary tract infection Status: Acute
[2018-04-19] MEDS: Vancomycin 1 gm/NS 200 ml 1 GM/200 ML BAG IVPB SCH (21:13)
[2018-04-20] MEDS: Sodium Chloride 0.9% 1,000 ML IV SCH (00:40)
[2018-04-20] MEDS: HYDROmorphone 1 mg/ml ISec IVP PRN ×2 (01:18→09:59)
[2018-04-20 08:23] VITALS: O2SAT 99
[2018-04-20] MEDS: Pantoprazole 40 mg EC Tab PO SCH (09:54)
[2018-04-20 14:28] LABS: BASO % 0.7 % (0.0-2.0); EOS # 0.2 K/uL (0.0-0.7); EOS % 3.1 % (0.0-4.0); MEAN CELL VOLUME 80.2 fL (81.0-99.0); MEAN CORPUSCULAR HEMOGLOBIN 25.9 pg (27.0-31.0); MEAN CORPUSCULAR HGB CONC 32.3 g/dL (33.0-37.0); MEAN PLATELET VOLUME 9.9 fL (7.2-11.7); MONO # 0.5 K/uL (0.0-0.8); MONO % 8.4 % (0.0-10.0); NEUT # 2.7 K/uL (1.8-7.0); NEUT % 50.8 % (50.0-75.0); RBC 3.86 Mil/uL (3.80-5.20); WHITE BLOOD COUNT 5.4 K/uL (4.8-10.8)
[2018-04-20 14:43] LABS: ALB/GLOB RATIO 1.1 (1.0-2.1); ALBUMIN 3.6 g/dL (3.5-5.0); CALCIUM 9.2 mg/dl (8.6-10.4)
[2018-04-20 16:44] VITALS: BP 187/90; PULSE 66; TEMP 98
--- NOTE | 2018-04-20 17:05 | CP.PCM.PN ---
Subjective - Date & Time of Evaluation Date of Evaluation: 04/20/18 Time of Evaluation: 10:00 - Subjective Subjective: improving afebrile iv rx in progress Objective - Vital Signs/Intake and Output Vital Signs (last 24 hours): Temp Pulse Resp BP Pulse Ox 98 F 66 20 187/90 H 99 04/20/18 16:43 04/20/18 16:43 04/20/18 16:43 04/20/18 16:43 04/20/18 16:43 Intake and Output: 04/20/18 04/20/18 06:59 18:59 Intake Total 1100 720 Output Total 300 550 Balance 800 170 - Medications Medications: Current Medications Acetaminophen (Tylenol 325mg Tab) 650 mg PO Q6 PRN PRN Reason: Fever >100.4 F Last Admin: 04/18/18 20:28 Dose: 650 mg Albuterol (Ventolin Hfa 90 Mcg/Actuation (8 G)) 2 puff INH RQ4 PRN PRN Reason: Shortness of Breath Aspirin (Ecotrin) 81 mg PO HS [facility] Last Admin: 04/19/18 21:14 Dose: 81 mg Darunavir (Prezista) 800 mg PO DAILY [facility]; Protocol Last Admin: 04/20/18 09:54 Dose: 800 mg Docusate Sodium (Colace) 100 mg PO BID [facility] Last Admin: 04/20/18 09:55 Dose: Not Given Dolutegravir Sodium (Tivicay) 50 mg PO DAILY [facility]; Protocol Last Admin: 04/20/18 09:54 Dose: 50 mg Escitalopram Oxalate (Lexapro) 5 mg PO DAILY [facility] Last Admin: 04/20/18 09:55 Dose: 5 mg Famciclovir (Famvir) 500 mg PO DAILY [facility]; Protocol Last Admin: 04/20/18 09:54 Dose: 500 mg Heparin Sodium (Porcine) (Heparin) 5,000 units SC Q12H [facility] Last Admin: 04/20/18 08:13 Dose: 5,000 units Hydromorphone HCl (Dilaudid) 1 mg IVP Q6H PRN PRN Reason: Pain, severe (8-10) Last Admin: 04/20/18 09:59 Dose: 1 mg Sodium Chloride (Sodium Chloride 0.9%) 1,000 mls @ 60 mls/hr IV .[id number] [facility] Last Admin: 04/20/18 00:40 Dose: 60 mls/hr Ceftriaxone Sodium 1 gm/ (Sodium Chloride) 100 mls @ 100 mls/hr IVPB DAILY [facility]; Protocol Last Admin: 04/20/18 09:50 Dose: 100 mls/hr Loratadine (Claritin) 10 mg PO DAILY [facility] Last Admin: 04/20/18 09:54 Dose: 10 mg Losartan Potassium (Cozaar) 100 mg PO DAILY [facility] Last Admin: 04/20/18 09:53 Dose: 100 mg Metoprolol Tartrate (Lopressor) 100 mg PO HS [facility] Last Admin: 04/19/18 21:13 Dose: 100 mg Montelukast Sodium (Singulair) 10 mg PO QPM [facility] Last Admin: 04/19/18 17:53 Dose: 10 mg Ondansetron HCl (Zofran Inj) 4 mg IVP Q6 PRN PRN Reason: Nausea/Vomiting Last Admin: 04/18/18 12:15 Dose: 4 mg Oxybutynin Chloride (Ditropan Xl) 5 mg PO DAILY [facility] Last Admin: 04/20/18 09:54 Dose: 5 mg Pantoprazole Sodium (Protonix Ec Tab) 40 mg PO DAILY [facility] Last Admin: 04/20/18 09:54 Dose: 40 mg Ritonavir (Norvir) 100 mg PO DAILY [facility]; Protocol Last Admin: 04/20/18 09:54 Dose: 100 mg Sucralfate (Carafate Tab) 1 gm PO BID [facility] Last Admin: 04/20/18 09:55 Dose: Not Given Temazepam (Restoril) 15 mg PO HS [facility] Last Admin: 04/19/18 22:29 Dose: Not Given - Labs Labs: 04/20/18 14:16 04/20/18 14:16 PT 11.8 SECONDS (9.7-12.2) 04/18/18 19:23 INR 1.1 04/18/18 19:23 APTT 27 SECONDS (21-34) 04/18/18 19:23 - Constitutional Appears: Non-toxic, Chronically Ill - Head Exam Head Exam: NORMOCEPHALIC - Eye Exam Eye Exam: absent: Scleral icterus - ENT Exam ENT Exam: Mucous Membranes Dry - Neck Exam Neck Exam: absent: Lymphadenopathy - Respiratory Exam Respiratory Exam: Decreased Breath Sounds - Cardiovascular Exam Cardiovascular Exam: REGULAR RHYTHM - GI/Abdominal Exam GI & Abdominal Exam: Distended, Soft Assessment and Plan (1) Complicated urinary tract infection Status: Acute - Assessment and Plan (Free Text) Assessment: cont iv rocephin x 14 days
--- NOTE | 2018-04-20 17:28 | CP.PCM.PN ---
Subjective - Date & Time of Evaluation Date of Evaluation: 04/20/18 Time of Evaluation: 17:28 Objective - Vital Signs/Intake and Output Vital Signs (last 24 hours): Temp Pulse Resp BP Pulse Ox 98 F 66 20 187/90 H 99 04/20/18 16:43 04/20/18 16:43 04/20/18 16:43 04/20/18 16:43 04/20/18 16:43 Intake and Output: 04/20/18 04/20/18 06:59 18:59 Intake Total 1100 720 Output Total 300 550 Balance 800 170 - Medications Medications: Current Medications Acetaminophen (Tylenol 325mg Tab) 650 mg PO Q6 PRN PRN Reason: Fever >100.4 F Last Admin: 04/18/18 20:28 Dose: 650 mg Albuterol (Ventolin Hfa 90 Mcg/Actuation (8 G)) 2 puff INH RQ4 PRN PRN Reason: Shortness of Breath Aspirin (Ecotrin) 81 mg PO HS [facility] Last Admin: 04/19/18 21:14 Dose: 81 mg Darunavir (Prezista) 800 mg PO DAILY [facility]; Protocol Last Admin: 04/20/18 09:54 Dose: 800 mg Docusate Sodium (Colace) 100 mg PO BID [facility] Last Admin: 04/20/18 17:21 Dose: Not Given Dolutegravir Sodium (Tivicay) 50 mg PO DAILY [facility]; Protocol Last Admin: 04/20/18 09:54 Dose: 50 mg Escitalopram Oxalate (Lexapro) 5 mg PO DAILY [facility] Last Admin: 04/20/18 09:55 Dose: 5 mg Famciclovir (Famvir) 500 mg PO DAILY [facility]; Protocol Last Admin: 04/20/18 09:54 Dose: 500 mg Heparin Sodium (Porcine) (Heparin) 5,000 units SC Q12H [facility] Last Admin: 04/20/18 08:13 Dose: 5,000 units Hydromorphone HCl (Dilaudid) 1 mg IVP Q6H PRN PRN Reason: Pain, severe (8-10) Last Admin: 04/20/18 09:59 Dose: 1 mg Sodium Chloride (Sodium Chloride 0.9%) 1,000 mls @ 60 mls/hr IV .[id number] [facility] Last Admin: 04/20/18 00:40 Dose: 60 mls/hr Ceftriaxone Sodium 1 gm/ (Sodium Chloride) 100 mls @ 100 mls/hr IVPB DAILY [facility]; Protocol Last Admin: 04/20/18 09:50 Dose: 100 mls/hr Loratadine (Claritin) 10 mg PO DAILY [facility] Last Admin: 04/20/18 09:54 Dose: 10 mg Losartan Potassium (Cozaar) 100 mg PO DAILY [facility] Last Admin: 04/20/18 09:53 Dose: 100 mg Metoprolol Tartrate (Lopressor) 100 mg PO HS [facility] Last Admin: 04/19/18 21:13 Dose: 100 mg Montelukast Sodium (Singulair) 10 mg PO QPM [facility] Last Admin: 04/19/18 17:53 Dose: 10 mg Ondansetron HCl (Zofran Inj) 4 mg IVP Q6 PRN PRN Reason: Nausea/Vomiting Last Admin: 04/18/18 12:15 Dose: 4 mg Oxybutynin Chloride (Ditropan Xl) 5 mg PO DAILY [facility] Last Admin: 04/20/18 09:54 Dose: 5 mg Pantoprazole Sodium (Protonix Ec Tab) 40 mg PO DAILY [facility] Last Admin: 04/20/18 09:54 Dose: 40 mg Ritonavir (Norvir) 100 mg PO DAILY [facility]; Protocol Last Admin: 04/20/18 09:54 Dose: 100 mg Sucralfate (Carafate Tab) 1 gm PO BID [facility] Last Admin: 04/20/18 17:21 Dose: Not Given Temazepam (Restoril) 15 mg PO HS [facility] Last Admin: 04/19/18 22:29 Dose: Not Given - Labs Labs: 04/20/18 14:16 04/20/18 14:16 PT 11.8 SECONDS (9.7-12.2) 04/18/18 19:23 INR 1.1 04/18/18 19:23 APTT 27 SECONDS (21-34) 04/18/18 19:23 Assessment and Plan - Assessment and Plan (Free Text) Assessment: FOLLOW UP WITH DR HAMILTON IN HIS OFFICE ---CALL FOR APPOINTMENT FOLLOW UP WITH DR SCHREIBER IN HIS OFFICE ----CALL FOR APPOINTMENT CONTINUE HOME MEDICATION NEW PRESCRIPTION GIVEN ROCEPHIN 1 G IVPB DIALY FOR 14 DAYS ACTIVITY TOLERATED CALL DR HAMILTON OR GO TO THE EMERGNCY ROOM IF SYMPTOM RETURN OR WORSENING
--- NOTE | 2018-04-20 17:47 | CP.PCM.DIS ---
Provider - Provider Date of Admission: 04/16/18 18:04 Attending physician: Lamberto Hamilton MD Time Spent in preparation of Discharge (in minutes): 40 Diagnosis - Discharge Diagnosis (1) Infection associated with nephrostomy catheter Status: Acute (2) Intractable pain Status: Acute (3) Cancer of cervix Status: Chronic (4) Colostomy care Status: Chronic (5) HIV (human immunodeficiency virus infection) Status: Chronic (6) History of depression Status: Chronic Hospital Course - Lab Results Lab Results: Micro Results 04/17/18 01:43 Blood-Venous Blood Culture - Preliminary NO GROWTH AFTER 3 DAYS 04/17/18 01:42 Blood-Venous Blood Culture - Preliminary NO GROWTH AFTER 3 DAYS 04/16/18 16:15 Urine Urine Culture - Final Proteus Mirabilis Most Recent Lab Values WBC 5.4 K/uL (4.8-10.8) 04/20/18 14:16 RBC 3.86 Mil/uL (3.80-5.20) 04/20/18 14:16 Hgb 10.0 g/dL (11.0-16.0) L 04/20/18 14:16 Hct 30.9 % (34.0-47.0) L 04/20/18 14:16 MCV 80.2 fL (81.0-99.0) L 04/20/18 14:16 MCH 25.9 pg (27.0-31.0) L 04/20/18 14:16 MCHC 32.3 g/dL (33.0-37.0) L 04/20/18 14:16 RDW 18.0 % (11.5-14.5) H 04/20/18 14:16 Plt Count 161 K/uL (130-400) 04/20/18 14:16 MPV 9.9 fL (7.2-11.7) 04/20/18 14:16 Neut % (Auto) 50.8 % (50.0-75.0) 04/20/18 14:16 Lymph % (Auto) 37.0 % (20.0-40.0) 04/20/18 14:16 [place] % (Auto) 8.4 % (0.0-10.0) 04/20/18 14:16 Eos % (Auto) 3.1 % (0.0-4.0) 04/20/18 14:16 Baso % (Auto) 0.7 % (0.0-2.0) 04/20/18 14:16 Neut # (Auto) 2.7 K/uL (1.8-7.0) 04/20/18 14:16 Lymph # (Auto) 2.0 K/uL (1.0-4.3) 04/20/18 14:16 [place] # (Auto) 0.5 K/uL (0.0-0.8) 04/20/18 14:16 Eos # (Auto) 0.2 K/uL (0.0-0.7) 04/20/18 14:16 Baso # (Auto) 0.0 K/uL (0.0-0.2) 04/20/18 14:16 PT 11.8 SECONDS (9.7-12.2) 04/18/18 19:23 INR 1.1 04/18/18 19:23 APTT 27 SECONDS (21-34) 04/18/18 19:23 Sodium 143 mmol/L (132-148) 04/20/18 14:16 Potassium 3.9 mmol/L (3.6-5.2) 04/20/18 14:16 Chloride 111 mmol/L (98-107) H 04/20/18 14:16 Carbon Dioxide 23 mmol/L (22-30) 04/20/18 14:16 Anion Gap 12 (10-20) 04/20/18 14:16 BUN 18 mg/dL (7-17) H 04/20/18 14:16 Creatinine 1.6 mg/dL (0.7-1.2) H 04/20/18 14:16 Est GFR ( Amer) 40 04/20/18 14:16 Est GFR (Non-Af Amer) 33 04/20/18 14:16 Random Glucose 108 mg/dL (65-105) H 04/20/18 14:16 Calcium 9.2 mg/dl (8.6-10.4) 04/20/18 14:16 Total Bilirubin 0.3 mg/dL (0.2-1.3) 04/20/18 14:16 AST 18 U/L (14-36) 04/20/18 14:16 ALT 24 U/L (9-52) 04/20/18 14:16 Alkaline Phosphatase 68 U/L (38-126) 04/20/18 14:16 Total Protein 6.7 g/dL (6.3-8.3) 04/20/18 14:16 Albumin 3.6 g/dL (3.5-5.0) 04/20/18 14:16 Globulin 3.1 gm/dL (2.2-3.9) 04/20/18 14:16 Albumin/Globulin Ratio 1.1 (1.0-2.1) 04/20/18 14:16 Urine Color Yellow (YELLOW) 04/16/18 16:15 Urine Clarity Hazy (Clear) 04/16/18 16:15 Urine pH 9.0 (5.0-8.0) 04/16/18 16:15 Ur Specific [place] 1.014 (1.003-1.030) 04/16/18 16:15 Urine Protein 2+ mg/dL (NEGATIVE) H 04/16/18 16:15 Urine Glucose (UA) Normal mg/dL (Normal) 04/16/18 16:15 Urine Ketones Negative mg/dL (NEGATIVE) 04/16/18 16:15 Urine Blood 1+ (NEGATIVE) H 04/16/18 16:15 Urine Nitrate Negative (NEGATIVE) 04/16/18 16:15 Urine Bilirubin Negative (NEGATIVE) 04/16/18 16:15 Urine Urobilinogen Normal mg/dL (0.2-1.0) 04/16/18 16:15 Ur Leukocyte Esterase Trace Pete/uL (Negative) H 04/16/18 16:15 Urine WBC (Auto) 5 /hpf (0-5) 04/16/18 16:15 Urine RBC (Auto) 25 /hpf (0-3) H 04/16/18 16:15 Ur Squamous Epith Cells 3 /hpf (0-5) 04/16/18 16:15 Triple Phos Crystals Occ /hpf (<OCC) H 04/16/18 16:15 Urine Bacteria Mod (<OCC) H 04/16/18 16:15 - Hospital Course Hospital Course: 63 admitted through the emergency room with pain and discharge from nephrostomy tube, started on antibiotically the help of infectious disease, nephrostomy tube was exchanged with the help of interventional radiology, she will need to 10 more days of antibiotically as per ID, she will be discharged home with supervisor home restoration service and visiting nurse Discharge Exam - Head Exam Head Exam: NORMOCEPHALIC - Eye Exam Eye Exam: EOMI - ENT Exam ENT Exam: Mucous Membranes Moist - Neck Exam Neck exam: Full Rom - Respiratory Exam Respiratory Exam: Clear to PA & Lateral. absent: Rales - Cardiovascular Exam Cardiovascular Exam: REGULAR RHYTHM - GI/Abdominal Exam GI & Abdominal Exam: Normal Bowel Sounds. absent: Organomegaly - Rectal Exam Rectal Exam: Deferred - Extremities Exam Extremities exam: normal capillary refill - Neurological Exam Neurological exam: Alert, Oriented x3 - Psychiatric Exam Psychiatric exam: Normal Mood - Skin Skin Exam: Dry Discharge Plan - Discharge Medications Prescriptions: cefTRIAXone [Rocephin] 1 gm IVPB DAILY 14 Days vial - Follow Up Plan Condition: GUARDED Disposition: HOME/ ROUTINE Instructions: Heart Failure, Adult (DC), Ceftriaxone, Kidney Infection (DC), Urinary Tract Infection in Women (DC) Additional Instructions: FOLLOW UP WITH DR HAMILTON IN HIS OFFICE ---CALL FOR APPOINTMENT FOLLOW UP WITH DR SCHREIBER IN HIS OFFICE ----CALL FOR APPOINTMENT CONTINUE HOME MEDICATION NEW PRESCRIPTION GIVEN ROCEPHIN 1 G IVPB DIALY FOR 14 DAYS ACTIVITY TOLERATED CALL DR HAMILTON OR GO TO THE EMERGNCY ROOM IF SYMPTOM RETURN OR WORSENING Referrals: Cece Knutson MD [Staff Provider] - Lamberto Hamilton MD [Staff Provider] -
--- NOTE | 2018-04-20 19:04 | PN ---
DATE: 04/20/2018 SUBJECTIVE: Bilateral nephrostomy change yesterday and she is improving. No evidence of any bleeding from the nephrostomy and they are draining well. ASSESSMENT AND PLAN: The patient told me that the radiologist and water conservation specialist told that there were some infection in one of the tubes and . The patient is on vancomycin and up to Dr. Vega when to discharge the patient. Cece Knutson MD
== END 2018-04-20 18:37 | disposition home or self-care (01) | DRG 820 ==
LOC: C.ER 13:22 → C.9E 18:04 → C.5S 22:09
PROVIDERS: ADMIT Internal Medicine Cardiovascular Disease; ATTEND Internal Medicine Cardiovascular Disease
PROC: 0T25X0Z Change Drainage Device in Kidney, External Approach (ICD-10-PCS; principal; 2018-04-19)
DX: N99.521 Infection of incontinent external stoma of urinary tract (principal); I13.0 Hypertensive heart and chronic kidney disease with heart failure and stage 1 through stage 4 chronic kidney disease, or unspecified chronic kidney disease; J44.9 Chronic obstructive pulmonary disease, unspecified; N18.9 Chronic kidney disease, unspecified; I50.9 Heart failure, unspecified; N13.6 Pyonephrosis; Z21 Asymptomatic human immunodeficiency virus [HIV] infection status; E78.5 Hyperlipidemia, unspecified; M81.0 Age-related osteoporosis without current pathological fracture; Z85.41 Personal history of malignant neoplasm of cervix uteri; Z86.718 Personal history of other venous thrombosis and embolism; Z79.01 Long term (current) use of anticoagulants; F17.210 Nicotine dependence, cigarettes, uncomplicated; Y83.3 Surgical operation with formation of external stoma as the cause of abnormal reaction of the patient, or of later complication, without mention of misadventure at the time of the procedure

== ENCOUNTER 2018-08-08 13:07 | Outpatient (CLI) | payer MEDICAID | END 2018-08-08 13:08 | disposition home or self-care (01) | LOC: C.USIC 13:07 ==

== ENCOUNTER 2018-08-21 19:13 | Inpatient (IN) | payer MEDICAID ==
[2018-08-21 19:14] VITALS: BMI 26.9
[2018-08-21] MEDS ORDERED: Sodium Chloride 0.9% 1,000 ML IV ONE (19:43)
--- NOTE | 2018-08-21 19:43 | C.PDOC ---
History Of Present Illness Patient presents to the ER complaining of fever and not feeling well for the past 2 days. Patient has Hx of cervical ca with radiation and chemo, ending up with bilateral nephrostomy and ileostomy. She normally changes her nephrostomy tubes every 3 months, last was in April. Denies nausea or vomiting. Time Seen by Provider: 08/21/18 19:43 Chief Complaint (Nursing): Fever History Per: Patient History/Exam Limitations: no limitations Onset/Duration Of Symptoms: Days (2) Current Symptoms Are (Timing): Still Present Location Of Pain: None Sick Contacts (Context): None Associated Symptoms: Fever, Other (Not feeling well) Ear Symptoms: Bilateral: None Severity: Moderate Pain Scale Rating Of: 4 Recent travel outside of the [place]: No Past Medical History Reviewed: Historical Data, Nursing Documentation, Vital Signs Vital Signs: Last Vital Signs Temp 100.4 F H 08/21/18 19:21 Pulse 131 H 08/21/18 19:21 Resp 18 08/21/18 19:21 BP 159/94 H 08/21/18 19:21 Pulse Ox 98 08/21/18 19:21 - Medical History PMH: Anemia, Anxiety, Arthritis, Asthma, CHF, COPD, Depression, Gastritis, HIV, HTN, Hypercholesterolemia, Hyperlipidemia, Kidney Stones, Malignancy (Cervical (2000), was treated with chemo and radiation.), Osteoporosis, Pancreatitis, [place] pheral Edema, Chronic Kidney Disease Surgical History: Cholecystectomy, Endoscopy Denies: Pacemaker - [facility] Procedures CHANGE DRAINAGE DEVICE IN KIDNEY, EXTERNAL APPROACH (04/16/18) CHANGE DRAINAGE DEVICE IN URETER, EXTERNAL APPROACH (04/19/17) CYSTOSCOPY NEC (08/07/14) DILATION OF LEFT COMMON ILIAC VEIN, PERCUTANEOUS APPROACH (05/04/16) DILATION OF LEFT FEMORAL VEIN, PERCUTANEOUS APPROACH (05/04/16) EXCISION OF BLADDER, ENDO, DIAGN (08/13/17) FLUOROSCOPY OF BLADDER (09/25/16) INSERTION OF INTRALUM DEV INTO INF VENA CAVA, PERC APPROACH (05/04/16) INSERTION OF TOTALLY IMPLANTABLE VASC ACCESS DEVIC (10/02/03) INSPECTION OF BLADDER, ENDO (09/25/16) INTRAVENOUS PYELOGRAM (09/03/14) INTRODUCE OTH THROMBOLYTIC IN PERIPH VEIN, PERC (05/04/16) NEPHROSTOMY (06/26/14) PACKED CELL TRANSFUSION (11/20/14) PLAIN RADIOGRAPHY OF INFERIOR VENA CAVA USING OTHER CONTRAST (05/04/16) RADIOGRAPHY OF KIDNEY, URETER & BLADDER USING OTH CONTRAST (10/25/16) REMOV URETERAL DRAIN (09/26/14) REPLACE NEPHROSTOMY TUBE (10/31/14) RETROGRADE PYELOGRAM (01/15/15) URETERAL CATHETERIZATION (01/15/15) VAGINOSCOPY (05/30/14) VULVAR BIOPSY (02/07/14) Family History: States: No Known Family Hx - Social History Hx Tobacco Use: No Hx Alcohol Use: No Hx Substance Use: No - Immunization History Hx Tetanus Toxoid Vaccination: Yes Hx Influenza Vaccination: Yes Hx Pneumococcal Vaccination: Yes Review Of Systems Constitutional: Positive for: Fever, Other (Not feeling well) Cardiovascular: Negative for: Chest Pain, Palpitations Respiratory: Negative for: Cough, Shortness of Breath Gastrointestinal: Negative for: Nausea, Vomiting Neurological: Negative for: Weakness, Numbness Physical Exam - Physical Exam Appears: Non-toxic Skin: Warm, Dry Head: Normacephalic Eye(s): bilateral: Normal Inspection Oral Mucosa: Moist Neck: Supple Chest: No Tenderness, Other (Port on right side) Cardiovascular: Rhythm Regular Respiratory: No Rales, No Rhonchi, No Wheezing Gastrointestinal/Abdominal: Soft, No Tenderness, Other ( colostomy) Back: Other (Bilateral draining nephrostomy) Extremity: Normal ROM, Other (left picc) Extremity: Bilateral: Atraumatic Pulses: Left Dorsalis Pedis: Normal, Right Dorsalis Pedis: Normal Neurological/Psych: Oriented x3 Gait: Steady ED Course And Treatment - Laboratory Results Result Diagrams: 08/21/18 20:11 08/21/18 20:11 ECG: Interpreted By Me, Viewed By Me O2 Sat by Pulse Oximetry: 98 (Room air) Pulse Ox Interpretation: Normal - Radiology CXR: Interpreted by Me, Viewed By Me CXR Interpretation: Yes: Other (right chest port, left picc line). No: Infiltrates, Fracture, Pnemothorax Progress Note: Blood work, EKG, CXR, and urinalysis ordered. IV fluids and toradol administered. spoke with dr corrales - consult ID, and will see the pt in am. SPoke with dr crawfodr - TERRY _ will start on cefepime Disposition Discussed With : Leo Varela Comment: accepted the pt on his service and took over the care at 9:19 PM Doctor Will See Patient In The: Hospital Counseled Patient/Family Regarding: Studies Performed, Diagnosis - Disposition Disposition: HOSPITALIZED Disposition Time: 19:43 Condition: FAIR Forms: [facility] (Indonesian) - POA Present On Arrival: Poor Glycemic Control - Clinical Impression Clinical Impression: Urinary tract infection, Urinary tract infection associated with nephrostomy catheter - Scribe Statement The provider has reviewed the documentation as recorded by the Scribe Dionisio Hung All medical record entries made by the Scribe were at my direction and personally dictated by me. I have reviewed the chart and agree that the record accurately reflects my personal performance of the history, physical exam, medical decision making, and the department course for this patient. I have also personally directed, reviewed, and agree with the discharge instructions and disposition. Decision To Admit - Pt Status Changed To: Hospital Disposition Of: Inpatient - Admit Certification Admit to Inpatient:: After my assessment, the patient will require hospitalization for at least two midnights. This is because of the severity of symptoms shown, intensity of services needed, and/or the medical risk in this patient being treated as an outpatient. - InPatient: Physician Admission Certification:: After my assessment, the patient will require hospitalization for at least two midnights. This is because of the severity of symptoms shown, intensity of services needed, and/or the medical risk in this patient being treated as an outpatient. - . Bed Request Type: Regular Admitting Physician: Leo Varela Patient Diagnosis: Urinary tract infection, Urinary tract infection associated with nephrostomy catheter
[2018-08-21 20:09] LABS: VENOUS BLOOD GAS BASE EXCESS 0.1 mmol/L (0.0-2.0); VENOUS BLOOD GAS PCO2 39 mmHg (40-60); VENOUS BLOOD GAS PO2 31 mm/Hg (30-55); VENOUS BLOOD PH 7.41 (7.32-7.43)
[2018-08-21 20:14] LABS: BASO % 0.1 % (0.0-2.0); EOS % 0.1 % (0.0-4.0); HEMOGLOBIN 10.8 g/dL (11.0-16.0); LYMPH # 1.7 K/uL (1.0-4.3); LYMPH % 17.3 % (20.0-40.0); MEAN CELL VOLUME 79.8 fL (81.0-99.0); MEAN CORPUSCULAR HEMOGLOBIN 25.6 pg (27.0-31.0); MEAN CORPUSCULAR HGB CONC 32.1 g/dL (33.0-37.0); MEAN PLATELET VOLUME 10.2 fL (7.2-11.7); MONO % 10.5 % (0.0-10.0); NEUT # 7.1 K/uL (1.8-7.0); RBC 4.21 Mil/uL (3.80-5.20); RED CELL DISTRIBUTION WIDTH 18.1 % (11.5-14.5); WHITE BLOOD COUNT 9.8 K/uL (4.8-10.8)
[2018-08-21 20:24] LABS: INR 1.2; PROTHROMBIN TIME 13.1 SECONDS (9.7-12.2)
[2018-08-21 20:26] LABS: ALB/GLOB RATIO 1.2 (1.0-2.1); CALCIUM 9.2 mg/dl (8.6-10.4)
[2018-08-21 20:48] LABS: SQUAMOUS EPITHIAL 1 /hpf (0-5); URINE BACTERIA MOD (<OCC); URINE BILIRUBIN NEGATIVE (NEGATIVE); URINE BLOOD NEGATIVE (NEGATIVE); URINE CLARITY Turbid (Clear); URINE COLOR Yellow (YELLOW); URINE GLUCOSE (UA) NORMAL (Normal); URINE LEUKOCYTE ESTERASE 3+ Leu/uL (Negative); URINE PROTEIN 3+ mg/dL (NEGATIVE); URINE TRIPLE PHOSPHATE CRYSTAL FEW /hpf (<OCC); URINE UROBILINOGEN NORMAL mg/dL (0.2-1.0)
[2018-08-21] MEDS ORDERED: Cefepime 1 GM in Sodium Chloride 0.9% 50 ML IVPB ONE (21:25)
[2018-08-21] MEDS ORDERED: Oxycodone/Acetaminophen 5/325 mg Tab PO PRN (21:48)
[2018-08-21] MEDS ORDERED: Albuterol HFA 90 mcg/actuation (8 g) INH PRN (21:48)
--- NOTE | 2018-08-21 22:47 | CP.PCM.CON ---
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 PATIENT STATES SHE HAS BEEN HAVING FEVERS AND NOT FEELING WELL. ALSO ITS TIME FOR CHANGE OF NEPHROSTOMY TUBES EVERY 3 MONTHS Patient states she has UTI, which she was informed was complicated and requires IV antibiotics as unable to tolerate oral antibiotics. Patient is presently on TIVICAY. Norvir, Prezista HAART therapy and is very compliant with her medications. ROS ;12 point ROS unremarkable unless otherwise noted. PMHx: Noted as above PSHx: Noted as above Meds: As per SEP, reviewed and confirmed All: aloe vera, sulfa- rash SHx: Used to smoke 5 cigarettes per day x 2-3 years quit 2000, denied ETOH, or illicit drug use FHx: Mother of colon CA 60s, father bone cancer 80s, sister and brother of MIs PMD/ ID: Dr. Nichole Urology: [facility] Cardio: George Past Patient History - Infectious Disease Hx of Infectious Diseases: None - Past Medical History & Family History Past Medical History?: Yes - Past Social History Smoking Status: Former Smoker - CARDIAC Hx Congestive Heart Failure: Yes Hx Hypercholesterolemia: Yes Hx Hypertension: Yes Hx Pacemaker: No Hx Peripheral Edema: Yes - PULMONARY Hx Asthma: Yes Hx Chronic Obstructive Pulmonary Disease (COPD): Yes - NEUROLOGICAL Hx Neurological Disorder: No Hx Paralysis: No - HEENT Hx HEENT Problems: Yes Hx Cataracts: Yes (BILATERAL) - RENAL Hx Chronic Kidney Disease: Yes Hx Kidney Stones: Yes - ENDOCRINE/METABOLIC Hx Endocrine Disorders: No - HEMATOLOGICAL/ONCOLOGICAL Hx Anemia: Yes Hx Human Immunodeficiency Virus (HIV): Yes - INTEGUMENTARY Hx Dermatological Problems: No - MUSCULOSKELETAL/RHEUMATOLOGICAL Hx Arthritis: Yes Hx Osteoporosis: Yes - GASTROINTESTINAL Hx Gastritis: Yes Hx Pancreatitis: Yes - GENITOURINARY/GYNECOLOGICAL Other/Comment: NEPHROSTOMY TUBES - PSYCHIATRIC Hx Anxiety: Yes Hx Depression: Yes Hx Substance Use: No - SURGICAL HISTORY Hx Cholecystectomy: Yes - ANESTHESIA Hx Anesthesia: Yes Hx Anesthesia Reactions: No Hx Malignant Hyperthermia: No Meds Allergies/Adverse Reactions: Allergies Allergy/AdvReac Type Severity Reaction Status Date / Time aloe vera Allergy Severe ITCHING Verified 08/21/18 19:24 Sulfa (Sulfonamide Allergy Severe ITCHING Verified 08/21/18 19:24 Antibiotics) sulfamethoxazole Allergy Severe ITCHING Verified 08/21/18 19:24 [From Bactrim] - Medications Medications: Current Medications Albuterol (Ventolin Hfa 90 Mcg/Actuation (8 G)) 2 puff INH Q4 PRN PRN Reason: Shortness of Breath Aspirin (Ecotrin) 81 mg PO HS [facility] Darunavir (Prezista) 800 mg PO DAILY [facility]; Protocol Dolutegravir Sodium (Tivicay) 50 mg PO DAILY [facility]; Protocol Escitalopram Oxalate (Lexapro) 5 mg PO DAILY [facility] Famciclovir (Famvir) 500 mg PO DAILY [facility]; Protocol Home Med (Fexofenadine Hcl [Fexofenadine Hcl]) 60 mg PO DAILY [facility] Home Med (Omeprazole [Omeprazole]) 40 mg PO DAILY [facility] Home Med (Valsartan [Diovan]) 300 mg PO DAILY [facility] Ceftriaxone Sodium 1 gm/ (Sodium Chloride) 100 mls @ 100 mls/hr IVPB DAILY [facility]; Protocol Metoprolol Tartrate (Lopressor) 100 mg PO HS [facility] Montelukast Sodium (Singulair) 10 mg PO QPM [facility] Oxycodone/Acetaminophen (Percocet 5/325 Mg Tab) 1 tab PO Q6H PRN PRN Reason: Pain, severe (8-10) Stop: 08/24/18 21:49 Ritonavir (Norvir) 100 mg PO DAILY [facility]; Protocol Physical Exam - Constitutional Appears: No Acute Distress - Eye Exam Eye Exam: EOMI, PERRL - ENT Exam ENT Exam: Mucous Membranes Dry, Normal Oropharynx - Neck Exam Neck exam: Positive for: Normal Inspection. Negative for: Meningismus - Respiratory Exam Respiratory Exam: Clear to Auscultation Bilateral, NORMAL BREATHING PATTERN - Cardiovascular Exam Cardiovascular Exam: Tachycardia, REGULAR RHYTHM, +S1, +S2 - GI/Abdominal Exam GI & Abdominal Exam: Hypoactive Bowel Sounds. absent: Distended (+VE ILEOSTOMY.), Guarding, Tenderness (RT. FLANK.) - Extremities Exam Extremities exam: Positive for: normal capillary refill, pedal pulses present. Negative for: calf tenderness, pedal edema - Back Exam Back exam: CVA tenderness (R) - Neurological Exam Neurological exam: Alert, CN II-XII Intact, Normal Gait, Oriented x3, Reflexes Normal - Psychiatric Exam Psychiatric exam: Normal Mood - Skin Skin Exam: Normal Color, Warm Results - Vital Signs Recent Vital Signs: Last Vital Signs Temp 99.1 F 08/21/18 21:44 Pulse 109 H 08/21/18 21:44 Resp 16 08/21/18 21:44 BP 110/71 08/21/18 21:44 Pulse Ox 95 08/21/18 21:44 - Labs Result Diagrams: 08/22/18 07:02 08/22/18 07:02 Labs: Laboratory Results - last 24 hr 08/21/18 08/21/18 08/21/18 20:06 20:11 20:11 WBC 9.8 RBC 4.21 Hgb 10.8 L Hct 33.6 L MCV 79.8 L MCH 25.6 L MCHC 32.1 L RDW 18.1 H Plt Count 171 MPV 10.2 Neut % (Auto) 72.0 Lymph % (Auto) 17.3 L [place] % (Auto) 10.5 H Eos % (Auto) 0.1 Baso % (Auto) 0.1 Neut # (Auto) 7.1 H Lymph # (Auto) 1.7 [place] # (Auto) 1.0 H Eos # (Auto) 0.0 Baso # (Auto) 0.0 PT 13.1 H INR 1.2 APTT 35 H pO2 31 VBG pH 7.41 VBG pCO2 39 L VBG HCO3 24.0 VBG Total CO2 25.9 VBG O2 Sat (Calc) 62.9 VBG Base Excess 0.1 VBG Potassium 3.6 Sodium 140.0 Chloride 108.0 H Glucose 125 H Lactate 0.8 Potassium Carbon Dioxide Anion Gap BUN Creatinine Est GFR ( Amer) Est GFR (Non-Af Amer) Random Glucose Calcium Total Bilirubin AST ALT Alkaline Phosphatase Total Protein Albumin Globulin Albumin/Globulin Ratio Lipase Venous Blood Potassium 3.6 Urine Color Urine Clarity Urine pH Ur Specific [place] Urine Protein Urine Glucose (UA) Urine Ketones Urine Blood Urine Nitrate Urine Bilirubin Urine Urobilinogen Ur Leukocyte Esterase Urine WBC (Auto) Urine RBC (Auto) Ur Squamous Epith Cells Triple Phos Crystals Urine Bacteria 08/21/18 08/21/18 20:11 20:38 WBC RBC Hgb Hct MCV MCH MCHC RDW Plt Count MPV Neut % (Auto) Lymph % (Auto) [place] % (Auto) Eos % (Auto) Baso % (Auto) Neut # (Auto) Lymph # (Auto) [place] # (Auto) Eos # (Auto) Baso # (Auto) PT INR APTT pO2 VBG pH VBG pCO2 VBG HCO3 VBG Total CO2 VBG O2 Sat (Calc) VBG Base Excess VBG Potassium Sodium 136 Chloride 106 Glucose Lactate Potassium 3.8 Carbon Dioxide 25 Anion Gap 9 L BUN 20 H Creatinine 1.7 H Est GFR ( Amer) 37 Est GFR (Non-Af Amer) 31 Random Glucose 129 H D Calcium 9.2 Total Bilirubin 0.8 AST 25 ALT 21 Alkaline Phosphatase 95 Total Protein 7.5 Albumin 4.0 Globulin 3.5 Albumin/Globulin Ratio 1.2 Lipase 139 Venous Blood Potassium Urine Color Yellow Urine Clarity Turbid Urine pH 9.0 Ur Specific [place] 1.013 Urine Protein 3+ H Urine Glucose (UA) Normal Urine Ketones Negative Urine Blood Negative Urine Nitrate Negative Urine Bilirubin Negative Urine Urobilinogen Normal Ur Leukocyte Esterase 3+ H Urine WBC (Auto) 29 H Urine RBC (Auto) 8 H Ur Squamous Epith Cells 1 Triple Phos Crystals Few H Urine Bacteria Mod H Assessment & Plan - Assessment and Plan (Free Text) Assessment: Asssessment : -NEW FEVER-SEPSIS ? - R/O COMPLICATED UTI.- -ABDOMINAL PAIN -HX OF BILATERAL HYDRONEPHROSIS S/P BILATERAL NT IN PLACE. -CA OF THE CERVIX S/P ILEOSTOMY.. -ACQUIRED IMMUNE DEFICIENCY SYNDROME.. - PRERENAL AZOTEMIA. -HX OF DVT/S/P IVC FILTER/ON ELAQUIS. PLAN: BLOOD CULTURES 2 -P FOLLOW-UP URINE CULTURES FOR IDENTIFICATION AND WILL ADJUST ANTIBIOTICS. START iv CEFEPIME 1GM IVPB EVERY 24 HOURLY FOR PSEUDOMONAL/ GN COVERAGE 08/20/18 IV HYDRATION. F/U HIV-1 RNA PCR QUNTITATIVE LEVELS F/U T LYMPHOCYTES SUBSET STUDIES R/O ART ABOVE. fOLLOW-UP CULTURES TO ADJUST ANTIBIOTICS. fOLLOW-UP RENAL FUNCTIONS CLOSELY. PER /IR
[2018-08-22 07:16] LABS: BASO % 0.3 % (0.0-2.0); EOS % 0.6 % (0.0-4.0); HEMOGLOBIN 9.5 g/dL (11.0-16.0); LYMPH # 1.9 K/uL (1.0-4.3); LYMPH % 25.1 % (20.0-40.0); MEAN CELL VOLUME 81.2 fL (81.0-99.0); MEAN CORPUSCULAR HEMOGLOBIN 26.1 pg (27.0-31.0); MEAN CORPUSCULAR HGB CONC 32.1 g/dL (33.0-37.0); MEAN PLATELET VOLUME 10.2 fL (7.2-11.7); MONO % 13.5 % (0.0-10.0); NEUT # 4.6 K/uL (1.8-7.0); NEUT % 60.5 % (50.0-75.0); RBC 3.63 Mil/uL (3.80-5.20); RED CELL DISTRIBUTION WIDTH 18.1 % (11.5-14.5); WHITE BLOOD COUNT 7.7 K/uL (4.8-10.8)
--- NOTE | 2018-08-22 07:47 | RAD ---
Date of service: 08/21/2018 HISTORY: abd pain COMPARISON: Portable chest 04/16/2018. FINDINGS: LUNGS: Right MediPort and left catheter in the plane of the left subclavian distribution possibly within left-sided SVC unchanged in position. No consolidation bilaterally. PLEURA: No significant pleural effusion identified, no pneumothorax apparent. CARDIOVASCULAR: No aortic atherosclerotic calcification present. Normal cardiac size. No pulmonary vascular congestion. OSSEOUS STRUCTURES: No significant abnormalities. VISUALIZED UPPER ABDOMEN: Normal. OTHER FINDINGS: None. IMPRESSION: No interval acute cardiopulmonary disease appreciated.
[2018-08-22 07:57] LABS: ALBUMIN 3.3 g/dL (3.5-5.0); CALCIUM 8.2 mg/dl (8.6-10.4)
[2018-08-22] MEDS ORDERED: VALSARTAN 300 MG PO SCH (10:00)
[2018-08-22] MEDS ORDERED: FEXOFENADINE HCL 60 MG PO SCH (10:00)
[2018-08-22] MEDS ORDERED: Home Med 1 UNIT (Omeprazole [Omeprazole] 40 MG) PO SCH (10:00)
[2018-08-22] MEDS ORDERED: Pantoprazole 40 mg EC Tab PO SCH (11:15)
--- NOTE | 2018-08-22 12:09 | CP.PCM.HP ---
History of Present Illness - History of Present Illness History of Present Illness: Patient presents to the ER complaining of fever and not feeling well for the past 2 days. Patient has Hx of cervical ca with radiation and chemo, ending up with bilateral nephrostomy and ileostomy. She normally changes her nephrostomy tubes every 3 months, last was in April Fever was 102f Present on Admission - Present on Admission Any Indicators Present on Admission: No Review of Systems - Review of Systems All systems: reviewed and no additional remarkable complaints except (malaise fever) Past Patient History - Infectious Disease Hx of Infectious Diseases: None - Past Medical History & Family History Past Medical History?: Yes - Past Social History Smoking Status: Former Smoker - CARDIAC Hx Congestive Heart Failure: Yes Hx Hypercholesterolemia: Yes Hx Hypertension: Yes Hx Pacemaker: No Hx Peripheral Edema: Yes - PULMONARY Hx Asthma: Yes Hx Chronic Obstructive Pulmonary Disease (COPD): Yes - NEUROLOGICAL Hx Neurological Disorder: No Hx Paralysis: No - HEENT Hx HEENT Problems: Yes Hx Cataracts: Yes (BILATERAL) - RENAL Hx Chronic Kidney Disease: Yes Hx Kidney Stones: Yes - ENDOCRINE/METABOLIC Hx Endocrine Disorders: No - HEMATOLOGICAL/ONCOLOGICAL Hx Anemia: Yes Hx Human Immunodeficiency Virus (HIV): Yes - INTEGUMENTARY Hx Dermatological Problems: No - MUSCULOSKELETAL/RHEUMATOLOGICAL Hx Arthritis: Yes Hx Osteoporosis: Yes - GASTROINTESTINAL Hx Gastritis: Yes Hx Pancreatitis: Yes - GENITOURINARY/GYNECOLOGICAL Other/Comment: NEPHROSTOMY TUBES - PSYCHIATRIC Hx Anxiety: Yes Hx Depression: Yes Hx Substance Use: No - SURGICAL HISTORY Hx Cholecystectomy: Yes - ANESTHESIA Hx Anesthesia: Yes Hx Anesthesia Reactions: No Hx Malignant Hyperthermia: No Meds Allergies/Adverse Reactions: Allergies Allergy/AdvReac Type Severity Reaction Status Date / Time aloe vera Allergy Severe ITCHING Verified 08/21/18 19:24 Sulfa (Sulfonamide Allergy Severe ITCHING Verified 08/21/18 19:24 Antibiotics) sulfamethoxazole Allergy Severe ITCHING Verified 08/21/18 19:24 [From Bactrim] Physical Exam - Constitutional Appears: Chronically Ill - Head Exam Head Exam: ATRAUMATIC, NORMAL INSPECTION, NORMOCEPHALIC - Eye Exam Eye Exam: EOMI, Normal appearance, PERRL - Neck Exam Neck exam: Positive for: Normal Inspection - Respiratory Exam Respiratory Exam: Clear to Auscultation Bilateral, NORMAL BREATHING PATTERN - Cardiovascular Exam Cardiovascular Exam: REGULAR RHYTHM - GI/Abdominal Exam GI & Abdominal Exam: Normal Bowel Sounds (iliostomy tube ), Soft. absent: Tende rness - Rectal Exam Rectal Exam: Deferred - Extremities Exam Extremities exam: Positive for: normal inspection - Back Exam Back exam: NORMAL INSPECTION. absent: CVA tenderness (L), CVA tenderness (R) (nephrostomy tube ) Results - Vital Signs Recent Vital Signs: Last Vital Signs Temp 98.2 F 08/22/18 07:00 Pulse 73 08/22/18 07:00 Resp 20 08/22/18 07:00 BP 139/79 08/22/18 07:00 Pulse Ox 95 08/22/18 07:00 - Labs Result Diagrams: 08/22/18 07:02 08/22/18 07:02 Labs: Laboratory Results - last 24 hr 08/21/18 08/21/18 08/21/18 20:06 20:11 20:11 WBC 9.8 RBC 4.21 Hgb 10.8 L Hct 33.6 L MCV 79.8 L MCH 25.6 L MCHC 32.1 L RDW 18.1 H Plt Count 171 MPV 10.2 Neut % (Auto) 72.0 Lymph % (Auto) 17.3 L [place] % (Auto) 10.5 H Eos % (Auto) 0.1 Baso % (Auto) 0.1 Neut # (Auto) 7.1 H Lymph # (Auto) 1.7 [place] # (Auto) 1.0 H Eos # (Auto) 0.0 Baso # (Auto) 0.0 PT 13.1 H INR 1.2 APTT 35 H pO2 31 VBG pH 7.41 VBG pCO2 39 L VBG HCO3 24.0 VBG Total CO2 25.9 VBG O2 Sat (Calc) 62.9 VBG Base Excess 0.1 VBG Potassium 3.6 Sodium 140.0 Chloride 108.0 H Glucose 125 H Lactate 0.8 Potassium Carbon Dioxide Anion Gap BUN Creatinine Est GFR ( Amer) Est GFR (Non-Af Amer) Random Glucose Calcium Total Bilirubin AST ALT Alkaline Phosphatase Total Protein Albumin Globulin Albumin/Globulin Ratio Lipase Venous Blood Potassium 3.6 Urine Color Urine Clarity Urine pH Ur Specific [place] Urine Protein Urine Glucose (UA) Urine Ketones Urine Blood Urine Nitrate Urine Bilirubin Urine Urobilinogen Ur Leukocyte Esterase Urine WBC (Auto) Urine RBC (Auto) Ur Squamous Epith Cells Triple Phos Crystals Urine Bacteria 08/21/18 08/21/18 08/22/18 20:11 20:38 07:02 WBC 7.7 RBC 3.63 L Hgb 9.5 L Hct 29.4 L MCV 81.2 MCH 26.1 L MCHC 32.1 L RDW 18.1 H Plt Count 149 MPV 10.2 Neut % (Auto) 60.5 Lymph % (Auto) 25.1 [place] % (Auto) 13.5 H Eos % (Auto) 0.6 Baso % (Auto) 0.3 Neut # (Auto) 4.6 Lymph # (Auto) 1.9 [place] # (Auto) 1.0 H Eos # (Auto) 0.0 Baso # (Auto) 0.0 PT INR APTT pO2 VBG pH VBG pCO2 VBG HCO3 VBG Total CO2 VBG O2 Sat (Calc) VBG Base Excess VBG Potassium Sodium 136 Chloride 106 Glucose Lactate Potassium 3.8 Carbon Dioxide 25 Anion Gap 9 L BUN 20 H Creatinine 1.7 H Est GFR ( Amer) 37 Est GFR (Non-Af Amer) 31 Random Glucose 129 H D Calcium 9.2 Total Bilirubin 0.8 AST 25 ALT 21 Alkaline Phosphatase 95 Total Protein 7.5 Albumin 4.0 Globulin 3.5 Albumin/Globulin Ratio 1.2 Lipase 139 Venous Blood Potassium Urine Color Yellow Urine Clarity Turbid Urine pH 9.0 Ur Specific [place] 1.013 Urine Protein 3+ H Urine Glucose (UA) Normal Urine Ketones Negative Urine Blood Negative Urine Nitrate Negative Urine Bilirubin Negative Urine Urobilinogen Normal Ur Leukocyte Esterase 3+ H Urine WBC (Auto) 29 H Urine RBC (Auto) 8 H Ur Squamous Epith Cells 1 Triple Phos Crystals Few H Urine Bacteria Mod H 08/22/18 07:02 WBC RBC Hgb Hct MCV MCH MCHC RDW Plt Count MPV Neut % (Auto) Lymph % (Auto) [place] % (Auto) Eos % (Auto) Baso % (Auto) Neut # (Auto) Lymph # (Auto) [place] # (Auto) Eos # (Auto) Baso # (Auto) PT INR APTT pO2 VBG pH VBG pCO2 VBG HCO3 VBG Total CO2 VBG O2 Sat (Calc) VBG Base Excess VBG Potassium Sodium 137 Chloride 109 H Glucose Lactate Potassium 4.2 Carbon Dioxide 22 Anion Gap 10 BUN 22 H Creatinine 1.6 H Est GFR ( Amer) 40 Est GFR (Non-Af Amer) 33 Random Glucose 96 D Calcium 8.2 L Total Bilirubin 0.6 AST 28 ALT 21 Alkaline Phosphatase 69 Total Protein 6.6 Albumin 3.3 L Globulin 3.2 Albumin/Globulin Ratio 1.0 Lipase Venous Blood Potassium Urine Color Urine Clarity Urine pH Ur Specific [place] Urine Protein Urine Glucose (UA) Urine Ketones Urine Blood Urine Nitrate Urine Bilirubin Urine Urobilinogen Ur Leukocyte Esterase Urine WBC (Auto) Urine RBC (Auto) Ur Squamous Epith Cells Triple Phos Crystals Urine Bacteria Assessment & Plan (1) Urinary tract infection associated with nephrostomy catheter Status: Acute (2) Cancer of cervical canal Status: Chronic
[2018-08-22] MEDS ORDERED: Albuterol HFA 90 mcg/actuation (8 g) INH PRN (12:15)
[2018-08-22] MEDS: Cefepime IV 1 gm in Dextrose 1 GM/50 ML BAG IVPB SCH (14:11)
--- NOTE | 2018-08-22 23:42 | CP.PCM.PN ---
Subjective - Date & Time of Evaluation Date of Evaluation: 08/22/18 Time of Evaluation: 23:42 - Subjective Subjective: CHIEF COMPLAINTS TODAY : AFEBRILE VSS c/o B/L FLANK PAIN B/L NT -+VE CLOUDY URINE ROS. HEENT : N. Resp : No cough, wheezing ,pleuritic CP ,or hemoptysis Cardio : No anginal CP, PND, orthopnea, palpitation GI : B/L FLANK PAIN RT >LT , denies n/v ,diarrhea or GI bleeding . 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 Musculoskel : No joint swelling , Derm : No rash Psych : Normal affect. Ext : No swelling ,calf pain PE. Pt. is alert awake in no distress. V.S As noted in the chart Head ,ear nose,throat and eyes : Normal. Neck : Supple with normal carotids. Lungs: Clear air entry. Heart : S1 & S2 normal with S4. No murmur. Abd : SOFT , B/L NT IN PLACE +VE CLOUDY URINE, +VE MILD DISCOMFORT B/L FLANKS, with normal bowel sounds. Neuro : Moves all ext. with no localized deficit. Ext : No edema with intact pulses.Non tender calves Derm : No rashes or decubitus ulcer. LABS/RADIOLOGY: REVIEWED BLOOD CULTURE X 2 -VE X 24HRS. URINE CULTURE +VE GNR Objective - Vital Signs/Intake and Output Vital Signs (last 24 hours): Temp Pulse Resp BP Pulse Ox 98.2 F 78 20 129/70 96 08/22/18 16:00 08/22/18 16:00 08/22/18 16:00 08/22/18 16:00 08/22/18 16:00 Intake and Output: 08/22/18 08/23/18 18:59 06:59 Intake Total 530 Output Total 350 Balance 180 - Medications Medications: Current Medications Acetaminophen (Tylenol 325mg Tab) 650 mg PO Q6 PRN PRN Reason: Pain, moderate (4-7) Last Admin: 08/22/18 08:12 Dose: 650 mg Albuterol (Ventolin Hfa 90 Mcg/Actuation (8 G)) 2 puff INH RQ4 PRN PRN Reason: Shortness of Breath Aspirin (Ecotrin) 81 mg PO HS [facility] Last Admin: 08/22/18 22:17 Dose: 81 mg Darunavir (Prezista) 800 mg PO DAILY [facility]; Protocol Last Admin: 08/22/18 09:29 Dose: 800 mg Dolutegravir Sodium (Tivicay) 50 mg PO DAILY [facility]; Protocol Last Admin: 08/22/18 11:11 Dose: 50 mg Escitalopram Oxalate (Lexapro) 5 mg PO DAILY [facility] Last Admin: 08/22/18 09:29 Dose: 5 mg Famciclovir (Famvir) 500 mg PO DAILY [facility]; Protocol Last Admin: 08/22/18 09:30 Dose: 500 mg Famotidine (Pepcid) 20 mg IVP DAILY [facility] Last Admin: 08/22/18 11:48 Dose: Not Given Heparin Sodium (Porcine) (Heparin) 5,000 units SC Q12 [facility] Last Admin: 08/22/18 22:17 Dose: 5,000 units Cefepime HCl (Maxipime Iv 1 Gm Premix) 1 gm in 50 mls @ 100 mls/hr IVPB Q24H [facility]; Protocol Last Admin: 08/22/18 14:11 Dose: 100 mls/hr Loratadine (Claritin) 10 mg PO DAILY [facility] Last Admin: 08/22/18 12:17 Dose: 10 mg Losartan Potassium (Cozaar) 100 mg PO DAILY [facility] Last Admin: 08/22/18 12:16 Dose: 100 mg Metoprolol Tartrate (Lopressor) 100 mg PO HS [facility] Last Admin: 08/22/18 22:17 Dose: 100 mg Montelukast Sodium (Singulair) 10 mg PO QPM [facility] Last Admin: 08/22/18 18:18 Dose: 10 mg Ondansetron HCl (Zofran Inj) 4 mg IVP Q8H PRN PRN Reason: Nausea/Vomiting Last Admin: 08/22/18 11:53 Dose: 4 mg Oxycodone/Acetaminophen (Percocet 5/325 Mg Tab) 1 tab PO Q6H PRN PRN Reason: Pain, severe (8-10) Stop: 08/24/18 21:49 Last Admin: 08/21/18 22:53 Dose: 1 tab Ritonavir (Norvir) 100 mg PO DAILY [facility]; Protocol Last Admin: 08/22/18 09:29 Dose: 100 mg - Labs Labs: 08/22/18 07:02 08/22/18 07:02 PT 13.1 SECONDS (9.7-12.2) H 08/21/18 20:11 INR 1.2 08/21/18 20:11 APTT 35 SECONDS (21-34) H 08/21/18 20:11 Assessment and Plan - Assessment and Plan (Free Text) Assessment: Asssessment : -NEW FEVER-SEPSIS ? - R/O COMPLICATED UTI.- -ABDOMINAL PAIN -HX OF BILATERAL HYDRONEPHROSIS S/P BILATERAL NT IN PLACE. -CA OF THE CERVIX S/P ILEOSTOMY.. -ACQUIRED IMMUNE DEFICIENCY SYNDROME.. - PRERENAL AZOTEMIA. -HX OF DVT/S/P IVC FILTER/ON ELAQUIS. PLAN: FOLLOW-UP URINE CULTURES FOR IDENTIFICATION AND WILL ADJUST ANTIBIOTICS. ON iv CEFEPIME 1GM IVPB EVERY 24 HOURLY FOR PSEUDOMONAL/ GN COVERAGE 08/20/18 IV HYDRATION. F/U HIV-1 RNA PCR QUNTITATIVE LEVELS F/U T LYMPHOCYTES SUBSET STUDIES R/O ART ABOVE. fOLLOW-UP CULTURES TO ADJUST ANTIBIOTICS. fOLLOW-UP RENAL FUNCTIONS CLOSELY. PER /IR
--- NOTE | 2018-08-23 06:44 | CON ---
DATE: 08/22/2018 HISTORY OF PRESENT ILLNESS: The patient is a 63-year-old [place] female, came to the ER with chills, fever, and bilateral flank pain. The patient was on the schedule to have the nephrostomy change bilaterally. The patient has bilateral nephrostomy which was draining well for the last three months. 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 The patient has colostomy and bilateral nephrostomy, voiding small quantity of urine to none. PHYSICAL EXAMINATION: Reveals nephrostomy draining. Cloudy urine. Mild different tenderness. No suprapubic fullness. Colostomy functioning well. The patient came to the ER, started on IV, started on antibiotic. I asked ER to call Dr. Romeo and to schedule her to go for change of nephrostomy when the fever and infection is under control. IMPRESSION: Bilateral nephrostomy due to urethral obstruction, pyelonephritis, urinary tract infection. PLAN: Control the infection and change the nephrostomy. Cece Knutson MD
[2018-08-23 07:36] LABS: BASO % 0.2 % (0.0-2.0); EOS # 0.1 K/uL (0.0-0.7); EOS % 0.7 % (0.0-4.0); HEMOGLOBIN 9.8 g/dL (11.0-16.0); LYMPH % 26.4 % (20.0-40.0); MEAN CELL VOLUME 80.9 fL (81.0-99.0); MEAN CORPUSCULAR HEMOGLOBIN 25.6 pg (27.0-31.0); MEAN CORPUSCULAR HGB CONC 31.6 g/dL (33.0-37.0); MEAN PLATELET VOLUME 10.4 fL (7.2-11.7); MONO # 0.9 K/uL (0.0-0.8); MONO % 11.4 % (0.0-10.0); NEUT # 4.6 K/uL (1.8-7.0); NEUT % 61.3 % (50.0-75.0); RBC 3.85 Mil/uL (3.80-5.20); RED CELL DISTRIBUTION WIDTH 18.2 % (11.5-14.5); WHITE BLOOD COUNT 7.5 K/uL (4.8-10.8)
[2018-08-23 07:54] LABS: ALBUMIN 3.5 g/dL (3.5-5.0); CALCIUM 8.6 mg/dl (8.6-10.4)
--- NOTE | 2018-08-23 11:32 | CP.PCM.PN ---
Subjective - Date & Time of Evaluation Date of Evaluation: 08/23/18 Time of Evaluation: 11:30 - Subjective Subjective: AFEBRILE URINE PROTEUS SEN CURRENT IV AB UROLOGY REFEERED THE REMOVALE OF NEPHROSTOMY TUBE TO IR CONT. IV AB Objective - Vital Signs/Intake and Output Vital Signs (last 24 hours): Temp Pulse Resp BP Pulse Ox 98.4 F 75 20 130/82 95 08/23/18 08:00 08/23/18 08:00 08/23/18 08:00 08/23/18 08:00 08/23/18 08:00 Intake and Output: 08/22/18 08/23/18 23:59 11:59 Intake Total 530 120 Output Total 350 600 Balance 180 -480 - Medications Medications: Current Medications Acetaminophen (Tylenol 325mg Tab) 650 mg PO Q6 PRN PRN Reason: Pain, moderate (4-7) Last Admin: 08/22/18 08:12 Dose: 650 mg Albuterol (Ventolin Hfa 90 Mcg/Actuation (8 G)) 2 puff INH RQ4 PRN PRN Reason: Shortness of Breath Aspirin (Ecotrin) 81 mg PO HS [facility] Last Admin: 08/22/18 22:17 Dose: 81 mg Darunavir (Prezista) 800 mg PO DAILY [facility]; Protocol Last Admin: 08/23/18 10:26 Dose: 800 mg Dolutegravir Sodium (Tivicay) 50 mg PO DAILY [facility]; Protocol Last Admin: 08/23/18 10:26 Dose: 50 mg Escitalopram Oxalate (Lexapro) 5 mg PO DAILY [facility] Last Admin: 08/23/18 10:25 Dose: 5 mg Famciclovir (Famvir) 500 mg PO DAILY [facility]; Protocol Last Admin: 08/23/18 10:25 Dose: 500 mg Famotidine (Pepcid) 20 mg IVP DAILY [facility] Last Admin: 08/23/18 10:26 Dose: 20 mg Heparin Sodium (Porcine) (Heparin) 5,000 units SC Q12 [facility] Last Admin: 08/23/18 10:32 Dose: 5,000 units Cefepime HCl (Maxipime Iv 1 Gm Premix) 1 gm in 50 mls @ 100 mls/hr IVPB Q24H [facility]; Protocol Last Admin: 08/22/18 14:11 Dose: 100 mls/hr Loratadine (Claritin) 10 mg PO DAILY [facility] Last Admin: 08/23/18 10:22 Dose: 10 mg Losartan Potassium (Cozaar) 100 mg PO DAILY [facility] Last Admin: 08/23/18 10:25 Dose: 100 mg Metoprolol Tartrate (Lopressor) 100 mg PO HS [facility] Last Admin: 08/22/18 22:17 Dose: 100 mg Montelukast Sodium (Singulair) 10 mg PO QPM [facility] Last Admin: 08/22/18 18:18 Dose: 10 mg Ondansetron HCl (Zofran Inj) 4 mg IVP Q8H PRN PRN Reason: Nausea/Vomiting Last Admin: 08/22/18 11:53 Dose: 4 mg Oxycodone/Acetaminophen (Percocet 5/325 Mg Tab) 1 tab PO Q6H PRN PRN Reason: Pain, severe (8-10) Stop: 08/24/18 21:49 Last Admin: 08/21/18 22:53 Dose: 1 tab Ritonavir (Norvir) 100 mg PO DAILY [facility]; Protocol Last Admin: 08/23/18 10:26 Dose: 100 mg - Labs Labs: 08/23/18 07:18 08/23/18 07:18 PT 13.1 SECONDS (9.7-12.2) H 08/21/18 20:11 INR 1.2 08/21/18 20:11 APTT 35 SECONDS (21-34) H 08/21/18 20:11 Assessment and Plan (1) Urinary tract infection associated with nephrostomy catheter Status: Acute (2) Cancer of cervical canal Status: Chronic
[2018-08-23] MEDS: Cefepime IV 1 gm in Dextrose 1 GM/50 ML BAG IVPB SCH (14:00)
--- NOTE | 2018-08-23 20:20 | CP.PCM.PN ---
Subjective - Date & Time of Evaluation Date of Evaluation: 08/23/18 Time of Evaluation: 20:20 - Subjective Subjective: CHIEF COMPLAINTS TODAY : AFEBRILE VSS c/o B/L FLANK PAIN B/L NT -+VE CLOUDY URINE DRESSING DRY AND CLEAN ROS. HEENT : N. Resp : No cough, wheezing ,pleuritic CP ,or hemoptysis Cardio : No anginal CP, PND, orthopnea, palpitation GI : B/L FLANK PAIN RT >LT , denies n/v ,diarrhea or GI bleeding . 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 Musculoskel : No joint swelling , Derm : No rash Psych : Normal affect. Ext : No swelling ,calf pain PE. Pt. is alert awake in no distress. V.S As noted in the chart Head ,ear nose,throat and eyes : Normal. Neck : Supple with normal carotids. Lungs: Clear air entry. Heart : S1 & S2 normal with S4. No murmur. Abd : SOFT , B/L NT IN PLACE +VE CLOUDY URINE, +VE MILD DISCOMFORT B/L FLANKS, with normal bowel sounds. Neuro : Moves all ext. with no localized deficit. Ext : No edema with intact pulses.Non tender calves Derm : No rashes or decubitus ulcer. LABS/RADIOLOGY: REVIEWED RENAL FUNCTION IMPROVING. BLOOD CULTURE X 2 -VE X 24HRS. URINE CULTURE +VE PROTEUS MIRABLIS Objective - Vital Signs/Intake and Output Vital Signs (last 24 hours): Temp Pulse Resp BP Pulse Ox 98.0 F 83 20 136/82 95 08/23/18 16:26 08/23/18 16:26 08/23/18 16:26 08/23/18 16:26 08/23/18 16:26 Intake and Output: 08/23/18 08/24/18 18:59 06:59 Intake Total 620 Output Total 900 Balance -280 - Medications Medications: Current Medications Acetaminophen (Tylenol 325mg Tab) 650 mg PO Q6 PRN PRN Reason: Pain, moderate (4-7) Last Admin: 08/22/18 08:12 Dose: 650 mg Albuterol (Ventolin Hfa 90 Mcg/Actuation (8 G)) 2 puff INH RQ4 PRN PRN Reason: Shortness of Breath Aspirin (Ecotrin) 81 mg PO HS [facility] Last Admin: 08/22/18 22:17 Dose: 81 mg Darunavir (Prezista) 800 mg PO DAILY [facility]; Protocol Last Admin: 08/23/18 10:26 Dose: 800 mg Dolutegravir Sodium (Tivicay) 50 mg PO DAILY [facility]; Protocol Last Admin: 08/23/18 10:26 Dose: 50 mg Escitalopram Oxalate (Lexapro) 5 mg PO DAILY [facility] Last Admin: 08/23/18 10:25 Dose: 5 mg Famciclovir (Famvir) 500 mg PO DAILY [facility]; Protocol Last Admin: 08/23/18 10:25 Dose: 500 mg Famotidine (Pepcid) 20 mg IVP DAILY [facility] Last Admin: 08/23/18 10:26 Dose: 20 mg Heparin Sodium (Porcine) (Heparin) 5,000 units SC Q12 [facility] Last Admin: 08/23/18 10:32 Dose: 5,000 units Cefepime HCl (Maxipime Iv 1 Gm Premix) 1 gm in 50 mls @ 100 mls/hr IVPB Q24H [facility]; Protocol Last Admin: 08/23/18 14:00 Dose: 100 mls/hr Loratadine (Claritin) 10 mg PO DAILY [facility] Last Admin: 08/23/18 10:22 Dose: 10 mg Losartan Potassium (Cozaar) 100 mg PO DAILY [facility] Last Admin: 08/23/18 10:25 Dose: 100 mg Metoprolol Tartrate (Lopressor) 100 mg PO HS [facility] Last Admin: 08/22/18 22:17 Dose: 100 mg Montelukast Sodium (Singulair) 10 mg PO QPM [facility] Last Admin: 08/23/18 17:07 Dose: 10 mg Ondansetron HCl (Zofran Inj) 4 mg IVP Q8H PRN PRN Reason: Nausea/Vomiting Last Admin: 08/22/18 11:53 Dose: 4 mg Oxycodone/Acetaminophen (Percocet 5/325 Mg Tab) 1 tab PO Q6H PRN PRN Reason: Pain, severe (8-10) Stop: 08/24/18 21:49 Last Admin: 08/21/18 22:53 Dose: 1 tab Ritonavir (Norvir) 100 mg PO DAILY [facility]; Protocol Last Admin: 08/23/18 10:26 Dose: 100 mg - Labs Labs: 08/23/18 07:18 08/23/18 07:18 PT 13.1 SECONDS (9.7-12.2) H 08/21/18 20:11 INR 1.2 08/21/18 20:11 APTT 35 SECONDS (21-34) H 08/21/18 20:11 Assessment and Plan - Assessment and Plan (Free Text) Assessment: Asssessment : -NEW FEVER-SEPSIS ? - R/O COMPLICATED UTI.- -ABDOMINAL PAIN -HX OF BILATERAL HYDRONEPHROSIS S/P BILATERAL NT IN PLACE. -CA OF THE CERVIX S/P ILEOSTOMY.. -ACQUIRED IMMUNE DEFICIENCY SYNDROME.. - PRERENAL AZOTEMIA. -HX OF DVT/S/P IVC FILTER/ON ELAQUIS. PLAN: CONTINUE iv CEFEPIME 1GM IVPB EVERY 24 HOURLY - 08/20/18 PROTEUS -S C EFEPIME IV HYDRATION. F/U HIV-1 RNA PCR QUNTITATIVE LEVELS F/U T LYMPHOCYTES SUBSET STUDIES R/O ART ABOVE. fOLLOW-UP CULTURES TO ADJUST ANTIBIOTICS. fOLLOW-UP RENAL FUNCTIONS CLOSELY. PER PT FOR IR TO CHANGE NT IN AM.
--- NOTE | 2018-08-23 22:00 | CARD ---
APPROVED REPORT Date of service: 08/21/2018 EKG Measurement Heart [id number] <Conclusion> Sinus tachycardia Otherwise normal ECG
[2018-08-24] MEDS ORDERED: Lidocaine Hydrochloride 20 ML INJ ONE (10:35)
[2018-08-24] MEDS ORDERED: Propofol 10 mg/ml Inj (20 ML) ONE (10:38)
[2018-08-24] MEDS ORDERED: Midazolam 2 MG/2 ML VIAL ONE (10:38)
[2018-08-24] MEDS ORDERED: Iohexol 240 (50 ml) ONE (10:44)
[2018-08-24] MEDS ORDERED: Iohexol 240 200 ML ONE (10:45)
--- NOTE | 2018-08-24 11:05 | PCM.SURG1 ---
Surgeon's Initial Post Op Note - Surgeon's Notes Surgeon: Benjie Cui MD Portable Trackman: NONE Type of Anesthesia: IV Sedation Pre-Operative Diagnosis: Cervical cancer, hydronephrosis Operative Findings: Right and left PCN present Post-Operative Diagnosis: Cervical cancer, hydronephrosis Operation Performed: Right and left PCN change for new 8.5 Fr nephrostomy tubes. Specimen/Specimens Removed: NONE Estimated Blood Loss: EBL {In ML}: 0 Blood Products Given: N/A Drains Used: No Drains Post-Op Condition: Fair Date of Surgery/Procedure: 08/24/18 Time of Surgery/Procedure: 11:00
[2018-08-24] MEDS ORDERED: HYDROmorphone 0.5 mg/0.5 ml ISec IVP PRN (11:15)
--- NOTE | 2018-08-24 11:46 | RAD ---
Date of procedure: 08/24/2018 Procedure: 1. Right and Left nephrostogram, CPT 96640 2. Right and Left percutaneous nephrostomy tube change, CPT 00453. Medications: 6cc 2 % Lidocaine, IV sedation by anesthesiologist HISTORY: Ureteral obstruction, Hydronephrosis TECHNIQUE: Following informed consent and procedure time-out, the patient was placed prone on the interventional table an the existing right and left percutaneous nephrostomy tube and surrounding skin were prepped and draped in the usual sterile fashion. Nephrostogram performed through the existing catheter showed moderate hydronephrosis. There was no flow of contrast through the internal stents into the urinary bladder. The left nephrostomy tube was cut and removed over a guide wire. A new 8.5 [place] nephrostomy tube was advanced over the wire and formed within the renal pelvis. The right nephrostomy tube was cut and removed over a guide wire. A new 8.5 [place] nephrostomy tube was advanced over the wire and formed within the renal pelvis. Position of the nephrostomy tube was confirmed contrast injection. The tube was secured patient's skin and dressing applied. The tube was then attached to a drainage bag. IMPRESSION: Removal of existing right and left nephrostomy tube and exchange for a new 8.5 [place] nephrostomy tubes. Nephrostogram performed through the existing catheter showed moderate hydronephrosis. There is no flow of contrast through the internal stents into the bladder.
--- NOTE | 2018-08-24 11:47 | CP.PCM.PN ---
Subjective - Date & Time of Evaluation Date of Evaluation: 08/24/18 Time of Evaluation: 11:46 - Subjective Subjective: AFEBRILE NEPHROSTOMY TUBES REPLACED CONT IV AB Objective - Vital Signs/Intake and Output Vital Signs (last 24 hours): Temp Pulse Resp BP Pulse Ox 98.2 F 66 14 146/79 98 08/24/18 11:08 08/24/18 11:30 08/24/18 11:30 08/24/18 11:30 08/24/18 11:30 Intake and Output: 08/23/18 08/24/18 23:59 11:59 Intake Total 800 100 Output Total 600 Balance 200 100 - Medications Medications: Current Medications Acetaminophen (Tylenol 325mg Tab) 650 mg PO Q6 PRN PRN Reason: Pain, moderate (4-7) Last Admin: 08/22/18 08:12 Dose: 650 mg Albuterol (Ventolin Hfa 90 Mcg/Actuation (8 G)) 2 puff INH RQ4 PRN PRN Reason: Shortness of Breath Aspirin (Ecotrin) [address] [facility] Last Admin: 08/23/18 21:47 Dose: 81 mg Darunavir (Prezista) [address] [facility]; Protocol Last Admin: 08/23/18 10:26 Dose: 800 mg Dolutegravir Sodium (Tivicay) [address] [facility]; Protocol Last Admin: 08/23/18 10:26 Dose: 50 mg Escitalopram Oxalate (Lexapro) [address] [facility] Last Admin: 08/23/18 10:25 Dose: 5 mg Famciclovir (Famvir) [address] [facility]; Protocol Last Admin: 08/23/18 10:25 Dose: 500 mg Famotidine (Pepcid) [address] [facility] Last Admin: 08/23/18 10:26 Dose: 20 mg Heparin Sodium (Porcine) (Heparin) 5,000 units SC Q12 [facility] Last Admin: 08/23/18 21:47 Dose: 5,000 units Hydromorphone HCl (Dilaudid) 0.5 mg IVP Q15M PRN PRN Reason: Pain, moderate (4-7) Stop: 08/24/18 13:16 Cefepime HCl (Maxipime Iv 1 Gm Premix) 1 gm in 50 mls @ 100 mls/hr IVPB Q24H [facility]; Protocol Last Admin: 08/23/18 14:00 Dose: 100 mls/hr Loratadine (Claritin) [address] [facility] Last Admin: 08/23/18 10:22 Dose: 10 mg Losartan Potassium (Cozaar) [address] [facility] Last Admin: 08/24/18 09:16 Dose: 100 mg Metoprolol Tartrate (Lopressor) [address] [facility] Last Admin: 08/23/18 21:47 Dose: 100 mg Montelukast Sodium (Singulair) [address] [facility] Last Admin: 08/23/18 17:07 Dose: 10 mg Ondansetron HCl (Zofran Inj) 4 mg IVP Q8H PRN PRN Reason: Nausea/Vomiting Last Admin: 08/22/18 11:53 Dose: 4 mg Ondansetron HCl (Zofran Inj) 4 mg IVP ONCE PRN PRN Reason: Nausea/Vomiting Stop: 08/24/18 13:16 Oxycodone/Acetaminophen (Percocet 5/325 Mg Tab) 1 tab PO Q6H PRN PRN Reason: Pain, severe (8-10) Stop: 08/24/18 21:49 Last Admin: 08/21/18 22:53 Dose: 1 tab Ritonavir (Norvir) [address] [facility]; Protocol Last Admin: 08/23/18 10:26 Dose: 100 mg - Labs Labs: 08/23/18 07:18 08/23/18 07:18 PT 13.1 SECONDS (9.7-12.2) H 08/21/18 20:11 INR 1.2 08/21/18 20:11 APTT 35 SECONDS (21-34) H 08/21/18 20:11 Assessment and Plan (1) Urinary tract infection associated with nephrostomy catheter Status: Acute (2) Cancer of cervical canal Status: Chronic
[2018-08-24] MEDS: Cefepime IV 1 gm in Dextrose 1 GM/50 ML BAG IVPB SCH (14:28)
[2018-08-24 15:59] VITALS: RESP 20
--- NOTE | 2018-08-24 18:36 | CP.PCM.PN ---
Subjective - Date & Time of Evaluation Date of Evaluation: 08/24/18 Time of Evaluation: 18:36 - Subjective Subjective: CHIEF COMPLAINTS TODAY : AFEBRILE VSS s/p b/l nt change by IR TODAY ROS. HEENT : N. Resp : No cough, wheezing ,pleuritic CP ,or hemoptysis Cardio : No anginal CP, PND, orthopnea, palpitation GI : DENIES ABD. PAIN , denies n/v ,diarrhea or GI bleeding . 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 Musculoskel : No joint swelling , Derm : No rash Psych : Normal affect. Ext : No swelling ,calf pain PE. Pt. is alert awake in no distress. V.S As noted in the chart Head ,ear nose,throat and eyes : Normal. Neck : Supple with normal carotids. Lungs: Clear air entry. Heart : S1 & S2 normal with S4. No murmur. Abd : SOFT , B/L NEW NT IN PLACE +VE MILD DISCOMFORT B/L FLANKS, with normal bowel sounds. Neuro : Moves all ext. with no localized deficit. Ext : No edema with intact pulses.Non tender calves Derm : No rashes or decubitus ulcer. LABS/RADIOLOGY: REVIEWED RENAL FUNCTION IMPROVING. BLOOD CULTURE X 2 -VE TO DATE URINE CULTURE +VE PROTEUS MIRABLIS Objective - Vital Signs/Intake and Output Vital Signs (last 24 hours): Temp Pulse Resp BP Pulse Ox 97.9 F 74 20 119/78 94 L 08/24/18 15:00 08/24/18 15:00 08/24/18 15:00 08/24/18 15:00 08/24/18 15:00 Intake and Output: 08/24/18 08/24/18 06:59 18:59 Intake Total 300 650 Output Total 300 400 Balance 0 250 - Medications Medications: Current Medications Acetaminophen (Tylenol 325mg Tab) 650 mg PO Q6 PRN PRN Reason: Pain, moderate (4-7) Last Admin: 08/22/18 08:12 Dose: 650 mg Albuterol (Ventolin Hfa 90 Mcg/Actuation (8 G)) 2 puff INH RQ4 PRN PRN Reason: Shortness of Breath Aspirin (Ecotrin) 81 mg PO HS [facility] Last Admin: 08/23/18 21:47 Dose: 81 mg Darunavir (Prezista) 800 mg PO DAILY [facility]; Protocol Last Admin: 08/24/18 12:18 Dose: 800 mg Dolutegravir Sodium (Tivicay) 50 mg PO DAILY [facility]; Protocol Last Admin: 08/24/18 12:18 Dose: 50 mg Escitalopram Oxalate (Lexapro) 5 mg PO DAILY [facility] Last Admin: 08/24/18 12:18 Dose: 5 mg Famciclovir (Famvir) 500 mg PO DAILY [facility]; Protocol Last Admin: 08/24/18 12:18 Dose: 500 mg Famotidine (Pepcid) 20 mg IVP DAILY [facility] Last Admin: 08/24/18 12:17 Dose: 20 mg Heparin Sodium (Porcine) (Heparin) 5,000 units SC Q12 [facility] Last Admin: 08/24/18 12:19 Dose: Not Given Cefepime HCl (Maxipime Iv 1 Gm Premix) 1 gm in 50 mls @ 100 mls/hr IVPB Q24H [facility]; Protocol Last Admin: 08/24/18 14:28 Dose: 100 mls/hr Loratadine (Claritin) 10 mg PO DAILY [facility] Last Admin: 08/24/18 12:17 Dose: 10 mg Losartan Potassium (Cozaar) 100 mg PO DAILY [facility] Last Admin: 08/24/18 09:16 Dose: 100 mg Metoprolol Tartrate (Lopressor) 100 mg PO HS [facility] Last Admin: 08/23/18 21:47 Dose: 100 mg Montelukast Sodium (Singulair) 10 mg PO QPM [facility] Last Admin: 08/24/18 17:22 Dose: 10 mg Ondansetron HCl (Zofran Inj) 4 mg IVP Q8H PRN PRN Reason: Nausea/Vomiting Last Admin: 08/22/18 11:53 Dose: 4 mg Oxycodone/Acetaminophen (Percocet 5/325 Mg Tab) 1 tab PO Q6H PRN PRN Reason: Pain, severe (8-10) Stop: 08/24/18 21:49 Last Admin: 08/21/18 22:53 Dose: 1 tab Ritonavir (Norvir) 100 mg PO DAILY [facility]; Protocol Last Admin: 08/24/18 12:17 Dose: 100 mg - Labs Labs: 08/23/18 07:18 08/23/18 07:18 PT 13.1 SECONDS (9.7-12.2) H 08/21/18 20:11 INR 1.2 08/21/18 20:11 APTT 35 SECONDS (21-34) H 08/21/18 20:11 Assessment and Plan - Assessment and Plan (Free Text) Assessment: Asssessment : -NEW FEVER- RESOLVED - COMPLICATED UTI.-+VE PROTEUS MIRABLIS -ABDOMINAL PAIN -HX OF BILATERAL HYDRONEPHROSIS S/P BILATERAL NT IN PLACE. -CA OF THE CERVIX S/P ILEOSTOMY.. -ACQUIRED IMMUNE DEFICIENCY SYNDROME.. - PRERENAL AZOTEMIA. -HX OF DVT/S/P IVC FILTER/ON ELAQUIS. PLAN: CONTINUE iv CEFEPIME 1GM IVPB EVERY 24 HOURLY - 08/20/18 PROTEUS -S CEFEPIME IV HYDRATION. F/U HIV-1 RNA PCR QUNTITATIVE LEVELS F/U T LYMPHOCYTES SUBSET STUDIES. OBSERVE FEVER CURVE POST OPT. IF NO FEVER , WILL DC IV CEFEPIME IN AM AND F/U PT OPD.
--- NOTE | 2018-08-25 12:40 | CP.PCM.DIS ---
Provider - Provider Date of Admission: 08/21/18 21:16 Attending physician: Leo Varela MD Consults: 08/21/18 21:18 Urology Consult Stat Comment: changing nephrostomy tubes Consulting Provider: Cece Knutson Consulting Physician: Cece Knutson Reason for Consult: changing nephrostomy tubes 08/21/18 21:22 Infectious Disease Consult Stat Comment: uti, nephostomy Consulting Provider: Tiffanie Romeo Consulting Physician: Tiffanie Romeo Reason for Consult: nephrostomy, uti 08/22/18 16:11 Radiology Consult Routine Comment: Consulting Provider: Benjie Cui Consulting Physician: Benjie Cui Reason for Consult: bilateral nephrostomy tube change Time Spent in preparation of Discharge (in minutes): 35 Diagnosis - Discharge Diagnosis (1) Urinary tract infection associated with nephrostomy catheter Status: Acute (2) Cancer of cervical canal Status: Chronic Hospital Course - Lab Results Lab Results: Micro Results 08/21/18 21:57 Blood Blood Culture - Preliminary NO GROWTH AFTER 3 DAYS 08/21/18 21:57 Blood Blood Culture - Preliminary NO GROWTH AFTER 3 DAYS 08/21/18 21:38 Urine,Suprapubic Urine Culture - Final Proteus Mirabilis Most Recent Lab Values WBC 7.5 K/uL (4.8-10.8) 08/23/18 07:18 RBC 3.85 Mil/uL (3.80-5.20) 08/23/18 07:18 Hgb 9.8 g/dL (11.0-16.0) L 08/23/18 07:18 Hct 31.1 % (34.0-47.0) L 08/23/18 07:18 MCV 80.9 fL (81.0-99.0) L 08/23/18 07:18 MCH 25.6 pg (27.0-31.0) L 08/23/18 07:18 MCHC 31.6 g/dL (33.0-37.0) L 08/23/18 07:18 RDW 18.2 % (11.5-14.5) H 08/23/18 07:18 Plt Count 154 K/uL (130-400) 08/23/18 07:18 MPV 10.4 fL (7.2-11.7) 08/23/18 07:18 Neut % (Auto) 61.3 % (50.0-75.0) 08/23/18 07:18 Lymph % (Auto) 26.4 % (20.0-40.0) 08/23/18 07:18 [place] % (Auto) 11.4 % (0.0-10.0) H 08/23/18 07:18 Eos % (Auto) 0.7 % (0.0-4.0) 08/23/18 07:18 Baso % (Auto) 0.2 % (0.0-2.0) 08/23/18 07:18 Neut # (Auto) 4.6 K/uL (1.8-7.0) 08/23/18 07:18 Lymph # (Auto) 2.0 K/uL (1.0-4.3) 08/23/18 07:18 [place] # (Auto) 0.9 K/uL (0.0-0.8) H 08/23/18 07:18 Eos # (Auto) 0.1 K/uL (0.0-0.7) 08/23/18 07:18 Baso # (Auto) 0.0 K/uL (0.0-0.2) 08/23/18 07:18 PT 13.1 SECONDS (9.7-12.2) H 08/21/18 20:11 INR 1.2 08/21/18 20:11 APTT 35 SECONDS (21-34) H 08/21/18 20:11 pO2 31 mm/Hg (30-55) 08/21/18 20:06 VBG pH 7.41 (7.32-7.43) 08/21/18 20:06 VBG pCO2 39 mmHg (40-60) L 08/21/18 20:06 VBG HCO3 24.0 mmol/L 08/21/18 20:06 VBG Total CO2 25.9 mmol/L (22-28) 08/21/18 20:06 VBG O2 Sat (Calc) 62.9 % (40-65) 08/21/18 20:06 VBG Base Excess 0.1 mmol/L (0.0-2.0) 08/21/18 20:06 VBG Potassium 3.6 mmol/L (3.6-5.2) 08/21/18 20:06 Sodium 140.0 mmol/l (132-148) 08/21/18 20:06 Chloride 108.0 mmol/L (98-107) H 08/21/18 20:06 Glucose 125 mg/dl (65-105) H 08/21/18 20:06 Lactate 0.8 mmol/L (0.7-2.1) 08/21/18 20:06 Sodium 132 mmol/L (132-148) 08/23/18 07:18 Potassium 4.3 mmol/L (3.6-5.2) 08/23/18 07:18 Chloride 104 mmol/L (98-107) 08/23/18 07:18 Carbon Dioxide 25 mmol/L (22-30) 08/23/18 07:18 Anion Gap 8 (10-20) L 08/23/18 07:18 BUN 17 mg/dL (7-17) 08/23/18 07:18 Creatinine 1.3 mg/dL (0.7-1.2) H 08/23/18 07:18 Est GFR ( Amer) 50 08/23/18 07:18 Est GFR (Non-Af Amer) 42 08/23/18 07:18 Random Glucose 91 mg/dL (65-105) 08/23/18 07:18 Calcium 8.6 mg/dl (8.6-10.4) 08/23/18 07:18 Total Bilirubin 0.5 mg/dL (0.2-1.3) 08/23/18 07:18 AST 32 U/L (14-36) 08/23/18 07:18 ALT 27 U/L (9-52) 08/23/18 07:18 Alkaline Phosphatase 90 U/L (38-126) 08/23/18 07:18 Total Protein 7.0 g/dL (6.3-8.3) 08/23/18 07:18 Albumin 3.5 g/dL (3.5-5.0) 08/23/18 07:18 Globulin 3.4 gm/dL (2.2-3.9) 08/23/18 07:18 Albumin/Globulin Ratio 1.0 (1.0-2.1) 08/23/18 07:18 Lipase 139 U/L (23-300) 08/21/18 20:11 Venous Blood Potassium 3.6 mmol/L (3.6-5.2) 08/21/18 20:06 Urine Color Yellow (YELLOW) 08/21/18 20:38 Urine Clarity Turbid (Clear) 08/21/18 20:38 Urine pH 9.0 (5.0-8.0) 08/21/18 20:38 Ur Specific [place] 1.013 (1.003-1.030) 08/21/18 20:38 Urine Protein 3+ mg/dL (NEGATIVE) H 08/21/18 20:38 Urine Glucose (UA) Normal mg/dL (Normal) 08/21/18 20:38 Urine Ketones Negative mg/dL (NEGATIVE) 08/21/18 20:38 Urine Blood Negative (NEGATIVE) 08/21/18 20:38 Urine Nitrate Negative (NEGATIVE) 08/21/18 20:38 Urine Bilirubin Negative (NEGATIVE) 08/21/18 20:38 Urine Urobilinogen Normal mg/dL (0.2-1.0) 08/21/18 20:38 Ur Leukocyte Esterase 3+ Pete/uL (Negative) H 08/21/18 20:38 Urine WBC (Auto) 29 /hpf (0-5) H 08/21/18 20:38 Urine RBC (Auto) 8 /hpf (0-3) H 08/21/18 20:38 Ur Squamous Epith Cells 1 /hpf (0-5) 08/21/18 20:38 Triple Phos Crystals Few /hpf (<OCC) H 08/21/18 20:38 Urine Bacteria Mod (<OCC) H 08/21/18 20:38 - Hospital Course Hospital Course: Patient presents to the ER complaining of fever and not feeling well for the past 2 days. Patient has Hx of cervical ca with radiation and chemo, ending up with bilateral nephrostomy and ileostomy. She normally changes her nephrostomy tubes every 3 months, last was in April Fever was 102f NEPHROSTOMY TUBES WERE REPLACED URINE GREW PROTEUS AND ID ORDERED JOAN. IV AB PT AFEBRILE NO SYMPTOMS AND D/C ON PO AB Discharge Exam - Head Exam Head Exam: ATRAUMATIC, NORMAL INSPECTION, NORMOCEPHALIC Discharge Plan - Follow Up Plan Condition: FAIR Disposition: HOME/ ROUTINE
[2018-08-25] MEDS: Cefepime IV 1 gm in Dextrose 1 GM/50 ML BAG IVPB SCH (14:08)
--- NOTE | 2018-08-25 14:27 | CP.PCM.PN ---
Subjective - Date & Time of Evaluation Date of Evaluation: 08/25/18 Time of Evaluation: 14:26 - Subjective Subjective: afebrile, NO COMPLAINTS. S/P B/L NT CHANGE. CASE DISCUSSED WITH ENGRAVER BLOCK MS BOO. OK TO D/C ON PO CIPRO 250MG BID X 3 DAYS. Objective - Vital Signs/Intake and Output Vital Signs (last 24 hours): Temp Pulse Resp BP Pulse Ox 97.7 F 72 20 135/81 96 08/25/18 07:47 08/25/18 07:47 08/25/18 07:47 08/25/18 07:47 08/25/18 07:47 Intake and Output: 08/25/18 08/25/18 06:59 18:59 Intake Total 480 Output Total 500 Balance -20 - Medications Medications: Current Medications Acetaminophen (Tylenol 325mg Tab) 650 mg PO Q6 PRN PRN Reason: Pain, moderate (4-7) Last Admin: 08/22/18 08:12 Dose: 650 mg Albuterol (Ventolin Hfa 90 Mcg/Actuation (8 G)) 2 puff INH RQ4 PRN PRN Reason: Shortness of Breath Aspirin (Ecotrin) 81 mg PO HS [facility] Last Admin: 08/24/18 22:22 Dose: 81 mg Darunavir (Prezista) 800 mg PO DAILY STEVEN; Protocol Last Admin: 08/25/18 09:56 Dose: 800 mg Dolutegravir Sodium (Tivicay) 50 mg PO DAILY [facility]EV[facility]; Protocol Last Admin: 08/25/18 09:56 Dose: 50 mg Escitalopram Oxalate (Lexapro) 5 mg PO DAILY [facility] Last Admin: 08/25/18 09:57 Dose: 5 mg Famciclovir (Famvir) 500 mg PO DAILY STEVEN; Protocol Last Admin: 08/25/18 09:57 Dose: 500 mg Famotidine (Pepcid) 20 mg IVP DAILY [facility] Last Admin: 08/25/18 09:55 Dose: 20 mg Cefepime HCl (Maxipime Iv 1 Gm Premix) 1 gm in 50 mls @ 100 mls/hr IVPB Q24H [facility]; Protocol Last Admin: 08/25/18 14:08 Dose: 100 mls/hr Loratadine (Claritin) 10 mg PO DAILY [facility] Last Admin: 08/25/18 09:55 Dose: 10 mg Losartan Potassium (Cozaar) 100 mg PO DAILY [facility] Last Admin: 08/25/18 09:54 Dose: 100 mg Metoprolol Tartrate (Lopressor) 100 mg PO HS [facility] Last Admin: 08/24/18 22:23 Dose: 100 mg Montelukast Sodium (Singulair) 10 mg PO QPM [facility] Last Admin: 08/24/18 17:22 Dose: 10 mg Ondansetron HCl (Zofran Inj) 4 mg IVP Q8H PRN PRN Reason: Nausea/Vomiting Last Admin: 08/22/18 11:53 Dose: 4 mg Ritonavir (Norvir) 100 mg PO DAILY [facility]; Protocol Last Admin: 08/25/18 09:57 Dose: 100 mg - Labs Labs: 08/23/18 07:18 08/23/18 07:18 PT 13.1 SECONDS (9.7-12.2) H 08/21/18 20:11 INR 1.2 08/21/18 20:11 APTT 35 SECONDS (21-34) H 08/21/18 20:11
[2018-08-25 15:49] VITALS: BP 144/84; PULSE 69; TEMP 98.3; O2SAT 94
--- NOTE | 2018-08-27 07:20 | PN ---
DATE: 08/24/2018 FOLLOWUP The patient has bilateral nephrostomy change, functioning well, mild bleeding, no active bleeding. The patient will be on antibiotic until she will be discharged by the Infectious Disease. Cece Knutson MD [facility] # [id number]
== END 2018-08-25 18:20 | disposition home or self-care (01) | DRG 820 ==
LOC: C.ER 19:13 → C.3T 21:16
PROVIDERS: ADMIT Internal Medicine Cardiovascular Disease; ATTEND Internal Medicine Cardiovascular Disease
PROC: 0T25X0Z Change Drainage Device in Kidney, External Approach (ICD-10-PCS; 2018-08-24)
PROC: 0T25X0Z Change Drainage Device in Kidney, External Approach (ICD-10-PCS; principal; 2018-08-24 10:15)
DX: N99.521 Infection of incontinent external stoma of urinary tract (principal); N13.6 Pyonephrosis; J44.9 Chronic obstructive pulmonary disease, unspecified; I50.9 Heart failure, unspecified; I13.0 Hypertensive heart and chronic kidney disease with heart failure and stage 1 through stage 4 chronic kidney disease, or unspecified chronic kidney disease; B96.4 Proteus (mirabilis) (morganii) as the cause of diseases classified elsewhere; Y83.8 Other surgical procedures as the cause of abnormal reaction of the patient, or of later complication, without mention of misadventure at the time of the procedure; Z21 Asymptomatic human immunodeficiency virus [HIV] infection status; E78.00 Pure hypercholesterolemia, unspecified; M81.0 Age-related osteoporosis without current pathological fracture; Z87.891 Personal history of nicotine dependence; F41.9 Anxiety disorder, unspecified; F32.9 Major depressive disorder, single episode, unspecified; N36.8 Other specified disorders of urethra; C53.0 Malignant neoplasm of endocervix

== ENCOUNTER 2018-10-10 14:29 | Inpatient (IN) | payer MEDICAID ==
[2018-10-10 14:29] VITALS: BMI 26.9
[2018-10-10] MEDS ORDERED: Morphine 4 MG/ML VIAL IV STA (15:54)
[2018-10-10 16:46] LABS: BASO % 0.1 % (0.0-2.0); EOS % 0.1 % (0.0-4.0); HEMOGLOBIN 10.9 g/dL (11.0-16.0); LYMPH # 1.1 K/uL (1.0-4.3); LYMPH % 7.1 % (20.0-40.0); MEAN CELL VOLUME 82.5 fL (81.0-99.0); MEAN CORPUSCULAR HEMOGLOBIN 25.9 pg (27.0-31.0); MEAN CORPUSCULAR HGB CONC 31.4 g/dL (33.0-37.0); MEAN PLATELET VOLUME 9.4 fL (7.2-11.7); MONO # 0.8 K/uL (0.0-0.8); MONO % 5.3 % (0.0-10.0); NEUT # 13.6 K/uL (1.8-7.0); NEUT % 87.4 % (50.0-75.0); PLATELET COUNT 195 K/uL (130-400); RBC 4.21 Mil/uL (3.80-5.20); RED CELL DISTRIBUTION WIDTH 18.4 % (11.5-14.5); WHITE BLOOD COUNT 15.6 K/uL (4.8-10.8)
[2018-10-10 16:57] LABS: ALB/GLOB RATIO 1.2 (1.0-2.1); CALCIUM 9.5 mg/dl (8.6-10.4)
[2018-10-10 18:11] LABS: BANDS 6 % (0-2); LARGE PLATELETS PRESENT; LYMPHOCYTE 11 % (20-40); MICROCYTOSIS SLIGHT; MONOCYTE 5 % (0-10); NEUTROPHIL 78 % (50-75); PLATELET ESTIMATE NORMAL (NORMAL); TOTAL CELLS COUNTED 100
--- NOTE | 2018-10-10 18:18 | C.PDOC ---
History Of Present Illness 63 y/o female, with history of cervical cancer, is sent in by her hem-onc doctor for right facial swelling with decreased PO intake because she is unable to open her mouth. She denies fever, trauma, or foul taste in mouth. Chief Complaint (Nursing): Medical Clearance History Per: Patient History/Exam Limitations: no limitations Onset/Duration Of Symptoms: Days Current Symptoms Are (Timing): Still Present Past Medical History Reviewed: Historical Data, Nursing Documentation, Vital Signs Vital Signs: Last Vital Signs Temp 99 F 10/10/18 18:00 Pulse 96 H 10/10/18 18:00 Resp 18 10/10/18 18:00 BP 150/84 10/10/18 18:00 Pulse Ox 100 10/10/18 18:00 - Medical History PMH: Anemia, Anxiety, Arthritis, Asthma, CHF, COPD, Depression, Gastritis, HIV, HTN, Hypercholesterolemia, Hyperlipidemia, Malignancy (Cervical (2000), was treated with chemo and radiation.), Osteoporosis, Pancreatitis, Peripheral Edema, Chronic Kidney Disease Denies: Kidney Stones Surgical History: Cholecystectomy, Endoscopy Denies: Pacemaker - [facility] Procedures CHANGE DRAINAGE DEVICE IN KIDNEY, EXTERNAL APPROACH (08/21/18) CHANGE DRAINAGE DEVICE IN URETER, EXTERNAL APPROACH (04/19/17) CYSTOSCOPY NEC (08/07/14) DILATION OF LEFT COMMON ILIAC VEIN, PERCUTANEOUS APPROACH (05/04/16) DILATION OF LEFT FEMORAL VEIN, PERCUTANEOUS APPROACH (05/04/16) EXCISION OF BLADDER, ENDO, DIAGN (08/13/17) FLUOROSCOPY OF BLADDER (09/25/16) INSERTION OF INTRALUM DEV INTO INF VENA CAVA, PERC APPROACH (05/04/16) INSERTION OF TOTALLY IMPLANTABLE VASC ACCESS DEVIC (10/02/03) INSPECTION OF BLADDER, ENDO (09/25/16) INTRAVENOUS PYELOGRAM (09/03/14) INTRODUCE OTH THROMBOLYTIC IN PERIPH VEIN, PERC (05/04/16) NEPHROSTOMY (06/26/14) PACKED CELL TRANSFUSION (11/20/14) PLAIN RADIOGRAPHY OF INFERIOR VENA CAVA USING OTHER CONTRAST (05/04/16) RADIOGRAPHY OF KIDNEY, URETER & BLADDER USING OTH CONTRAST (10/25/16) REMOV URETERAL DRAIN (09/26/14) REPLACE NEPHROSTOMY TUBE (10/31/14) RETROGRADE PYELOGRAM (01/15/15) URETERAL CATHETERIZATION (01/15/15) VAGINOSCOPY (05/30/14) VULVAR BIOPSY (02/07/14) Family History: States: No Known Family Hx - Social History Hx Tobacco Use: No Hx Alcohol Use: No Hx Substance Use: No - Immunization History Hx Tetanus Toxoid Vaccination: Yes Hx Influenza Vaccination: Yes Hx Pneumococcal Vaccination: Yes Review Of Systems Except As Marked, All Systems Reviewed And Found Negative. Constitutional: Negative for: Fever, Chills Musculoskeletal: Positive for: Other (Right facial swelling) Skin: Negative for: Rash Physical Exam - Physical Exam Appears: Non-toxic, No Acute Distress Skin: Warm, Dry Head: Atraumatic, Normacephalic, Other (right zygomatic area tender to touch) Eye(s): bilateral: Normal Inspection Oral Mucosa: Moist Throat: Other (limited pharynx exam, pt unable to open mouth) Respiratory: Normal Breath Sounds Extremity: No Deformity Extremity: Bilateral: Atraumatic, Normal ROM Neurological/Psych: Oriented x3 ED Course And Treatment - Laboratory Results Result Diagrams: 10/10/18 16:38 10/10/18 16:38 Lab Results: Total Bilirubin 0.6 mg/dL (0.2-1.3) 10/10/18 16:38 AST 31 U/L (14-36) 10/10/18 16:38 ALT 16 U/L (9-52) 10/10/18 16:38 Alkaline Phosphatase 84 U/L (38-126) 10/10/18 16:38 Total Protein 7.5 g/dL (6.3-8.3) 10/10/18 16:38 Albumin 4.0 g/dL (3.5-5.0) 10/10/18 16:38 Globulin 3.5 gm/dL (2.2-3.9) 10/10/18 16:38 Albumin/Globulin Ratio 1.2 (1.0-2.1) 10/10/18 16:38 O2 Sat by Pulse Oximetry: 100 (RA) Pulse Ox Interpretation: Normal Medical Decision Making Medical Decision Making: Plan: --Maxillofacial CT --Labs --Morphine --Toradol Disposition - Disposition Disposition Time: 19:00 Condition: STABLE Forms: [facility] (Lao) - Clinical Impression Clinical Impression: Facial pain - Scribe Statement The provider has reviewed the documentation as recorded by the Scribe Candy Piedraus Provider Attestation: All medical record entries made by the Cooperibmaggie were at my direction and personally dictated by me. I have reviewed the chart and agree that the record accurately reflects my personal performance of the history, physical exam, medical decision making, and the department course for this patient. I have also personally directed, reviewed, and agree with the discharge instructions and disposition. Physician Patient Turnover Patient Signed Over To: Eliu Bruno (follow up CT result and dispo)
[2018-10-10] MEDS ORDERED: Piperacillin/Tazobact 3.375 gm 100 ML IVPB STA (19:01)
[2018-10-10] MEDS ORDERED: Sodium Chloride 0.9% 1,000 ML IV ONE (19:23)
[2018-10-10] MEDS ORDERED: Piperacillin/Tazobact 3.375 gm 100 ML IVPB ONE (19:41)
[2018-10-10 19:43] LABS: VENOUS BLOOD GAS BASE EXCESS -6.1 mmol/L (0.0-2.0); VENOUS BLOOD GAS PCO2 47 mmHg (40-60); VENOUS BLOOD GAS PO2 23 mm/Hg (30-55); VENOUS BLOOD PH 7.26 (7.32-7.43)
[2018-10-10] MEDS ORDERED: Vancomycin 1 GM 1 GM/250 ML BAG IVPB ONE (20:07)
[2018-10-10] MEDS ORDERED: Oxycodone/Acetaminophen 5/325 mg Tab PO PRN (20:10)
[2018-10-11 01:00] VITALS: RESP 20
[2018-10-11] MEDS: Piperacillin/Tazobact 3.375 gm 100 ML IVPB SCH ×2 (02:45→08:54)
--- NOTE | 2018-10-11 07:10 | CP.PCM.PN ---
"Subjective - Date & Time of Evaluation Date of Evaluation: 10/11/18 Time of Evaluation: 17:43 - Subjective Subjective: This patient is a 63 year old female with a PMHx of Cervical CA (Treated with Chemo & Radiation in 2000), Osteoporosis, Pancreatitis, Peripheral Edema, CKD, Hyperlipidemia, Anxiety, Arthritis, Asthma, and CHF, HIV and HTN who who was se nt by Oncologist for evaluation of right sided facial swelling. CT scan significant for stone in parotid duct and enlarged right parotid gland. Patient admitted for evaluation and treatment parotitis 2/2 to Sialolithiasis. PMHx: As stated above ALL: Sulfa, Aloe Vera Meds: Per SEP. Today, patient complains of right sided facial pain. She states the percocet does not work for her. Denies any fever, chills, CP, SOB, abdominal pain, n/v changes in bowel habits or urinary symptoms. Objective - Vital Signs/Intake and Output Vital Signs (last 24 hours): Temp Pulse Resp BP Pulse Ox 98.5 F 127 H 20 127/73 97 10/11/18 00:00 10/11/18 00:00 10/11/18 00:00 10/11/18 00:00 10/11/18 00:00 Intake and Output: 10/11/18 10/11/18 06:59 18:59 Intake Total 200 Balance 200 - Medications Medications: Current Medications Enoxaparin Sodium (Lovenox) 40 mg SC DAILY STEVEN Piperacillin Sod/Tazobactam Sod (Zosyn 3.375 In Ns 100ml) 100 mls @ 200 mls/hr IVPB Q6H [facility]EVEN; Protocol Last Admin: 10/11/18 02:45 Dose: 200 mls/hr Oxycodone/Acetaminophen (Percocet 5/325 Mg Tab) 1 tab PO Q4H PRN PRN Reason: Pain, moderate (4-7) Stop: 10/13/18 20:11 - Labs Labs: 10/10/18 16:38 10/10/18 16:38 - Constitutional Appears: Well, Non-toxic, No Acute Distress - Head Exam Additional comments: Right Side Facial Swelling. - Eye Exam Eye Exam: EOMI, Normal appearance - ENT Exam ENT Exam: Mucous Membranes Moist - Respiratory Exam Respiratory Exam: Clear to Ausculation Bilateral, NORMAL BREATHING PATTERN. absent: Accessory Muscle Use, Rales - Cardiovascular Exam Cardiovascular Exam: RRR, +S1, +S2. absent: JVD - GI/Abdominal Exam GI & Abdominal Exam: Soft. absent: Tenderness - Extremities Exam Extremities Exam: Normal Capillary Refill. absent: Pedal Edema - Neurological Exam Neurological Exam: Alert, Awake, Oriented x3 - Psychiatric Exam Psychiatric exam: Normal Affect, Normal Mood - Skin Skin Exam: Dry, Intact, Normal Color, Warm Assessment and Plan - Assessment and Plan (Free Text) Assessment: 63 year old female with a PMHx of Cervical CA (Treated with Chemo & Radiation in 2000), Osteoporosis, Pancreatitis, Peripheral Edema, CKD, Hyperlipidemia, Anxiety, Arthritis, Asthma, and CHF, HIV and HTN who who was sent by Oncologist for evaluation of right sided facial swelling. CT scan significant for stone in parotid duct and enlarged right parotid gland. Patient admitted for evaluation and treatment parotitis 2/2 to Sialolithiasis. Plan: Parotitis/Sialothiaisis Maxillofacial CT (Admission): There is an obstructing calculus within the distribution of right parotid duct (Stensen's duct). The right parotid gland is enlarged and heterogeneous with infiltration and presumed amorphous areas of fluid however no discrete drainable abscess collections identified. There are also infiltration changes in the surrounding subcutaneous fat. Consults: ENT (Dr. Van), F/U Recs Labs: CMV | COXSACKI A/B | EBV | HIV viral load | SS-A/SS-B - F/U Mgmt: Hydration Warm Compress Morphine 2 Q6H PRN/Percocet 1tab Q4H PRN for pain Zosyn 2.25mg Q6H STEVEN | Daptomycin 440mg Q36 Gram Positive Bacteremia Consults: ID(Dr. Romeo), Recs Appreciated Mgmt: Zosyn 2.25mg Q6H STEVEN | Daptomycin 440mg Q36 HTN (Chronic) Mgmt: Cont. Home Medications Losartan 100mg PO Daily Metoprolol 100mg PO Daily ASA HIV (Chronic) Consults: ID(Dr. Romeo), Recs Appreciated Mgmt: Cont. Home Meds PRezista, Tivicay, Norvir, Famvir Asthma (Chronic) Mgmt: Cont. Home Meds Singulair 10mg PO HS Albuterol PRN Depression/Anxiety Mgmt: Cont. Home MEds Lexapro 5mg Daily Proph Lovenox 40 Patient seen and discussed with Attending (Dr. Kirby) Miguel Murrieta, PGY-2"
[2018-10-11 08:11] LABS: BASO % 0.2 % (0.0-2.0); EOS % 0.1 % (0.0-4.0); HEMOGLOBIN 9.9 g/dL (11.0-16.0); LYMPH % 4.5 % (20.0-40.0); MEAN CELL VOLUME 83.6 fL (81.0-99.0); MEAN CORPUSCULAR HEMOGLOBIN 26.9 pg (27.0-31.0); MEAN CORPUSCULAR HGB CONC 32.2 g/dL (33.0-37.0); MEAN PLATELET VOLUME 9.3 fL (7.2-11.7); MONO # 1.2 K/uL (0.0-0.8); MONO % 5.4 % (0.0-10.0); NEUT % 89.8 % (50.0-75.0); PLATELET COUNT 174 K/uL (130-400); RBC 3.69 Mil/uL (3.80-5.20); RED CELL DISTRIBUTION WIDTH 18.2 % (11.5-14.5); WHITE BLOOD COUNT 22.3 K/uL (4.8-10.8)
[2018-10-11 08:26] LABS: ALB/GLOB RATIO 1.2 (1.0-2.1); ALBUMIN 3.5 g/dL (3.5-5.0); CALCIUM 8.8 mg/dl (8.6-10.4)
[2018-10-11] MEDS: Enoxaparin 40 mg Syringe SC SCH (09:04)
[2018-10-11] MEDS ORDERED: Magnesium Sulfate 1 gm in D5W 1 GM/100 ML BAG IVPB ONE (09:30)
[2018-10-11 09:32] LABS: BANDS 3 % (0-2); LYMPHOCYTE 10 % (20-40); MONOCYTE 2 % (0-10); NEUTROPHIL 85 % (50-75); PLATELET ESTIMATE NORMAL (NORMAL); TOTAL CELLS COUNTED 100
[2018-10-11 09:33] LABS: ANISOCYTOSIS SLIGHT; HYPOCHROMIC SLIGHT; POLYCHROMIC SLIGHT
[2018-10-11] MEDS ORDERED: Albuterol HFA 90 mcg/actuation (8 g) IH PRN (11:37)
--- NOTE | 2018-10-11 12:50 | CT ---
Date of service: 10/10/2018 PROCEDURE: CT MAXILLOFACIAL BONES WITHOUT CONTRAST HISTORY: ? abscess to area of right-side facial COMPARISON: No prior study available comparison TECHNIQUE: Contiguous axial CT images of the maxillofacial bones were obtained. Coronal and sagittal reformats were generated. Radiation dose: Total exam DLP = 711.8 mGy-cm. This CT exam was performed using one or more of the following dose reduction techniques: Automated exposure control, adjustment of the mA and/or kV according to patient size, and/or use of iterative reconstruction technique. FINDINGS: NASAL BONES: Unremarkable. ORBITS: Unremarkable. PARANASAL SINUSES/ MASTOIDS: Minimal mucosal thickening seen floor right chamber sphenoid sinus MAXILLA: Unremarkable. MANDIBLE/ TEMPOROMANDIBULAR JOINTS: Unremarkable. SKULL BASE: Unremarkable. TEMPORAL BONES: Middle ears and mastoid grossly unremarkable. OTHER FINDINGS: There is enlarged heterogeneous appearance infiltration and probably some amorphous areas of fluid within right parotid gland and surrounding infiltration changes and infiltration of the adjacent surrounding subcutaneous fat. Findings most likely represent post infectious infectious/inflammatory etiology with an obstructing calculus measuring 5.3 mm in distribution of right parotid duct (Stensen's duct). No drainable discrete abscess the collection is identified at this time. There are multiple small to medium size right-sided level 1 and level 2 lymph nodes the largest in the right jugulodigastric region measuring approximately 12 mm. Carotid bifurcations. Carotid siphons IMPRESSION: There is an obstructing calculus within the distribution of right parotid duct (Stensen's duct). The right parotid gland is enlarged and heterogeneous with infiltration and presumed amorphous areas of fluid however no discrete drainable abscess collections identified. There are also infiltration changes in the surrounding subcutaneous fat. There is discordance between the preliminary report and final report. The final report was placed in PA review folder for follow up.
--- NOTE | 2018-10-11 13:47 | CP.PCM.CON ---
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 Pt.was sent by Oncologist on 10/10/18 for evaluation of right sided facial swelling. CT scan significant for obstructive calculus right parotid duct( yuan duct ). His infiltration surrounding subcutaneou fat? Post infectious/inflammatory etiology with obstructive calculus 5.3 mm. Patient also admits to having low-grade temperatures and severe pain right side of the face with marked edema and swelling and tenderness over the parotid gland. Patient was appropriately cultured and started on IV Zosyn and one dose of vancomycin was also given in the ER on 10/10/18. BLOOD CULTURES TODAY 2:2 SETS REPORTED POSITIVE FOR GRAM-POSITIVE COCCI WITH NEGATIVE pna FISH NEGATIVE FOR ENTEROCOCCUS/SUSPICIOUS FOR STREPTOCOCCI INFECTIOUS DISEASE CONSULT REQUESTED BY PMD DR RIVKA BOWSER. PATIENT HAS DIFFICULTY CHEWING ON OPENING THE MOUTH. DENIES SHORTNESS OF BREATH, COUGH,DYSPHAGIA. Patient is presently on TIVICAY. Norvir, Prezista HAART therapy and is very compliant with her medications. ROS ;12 point ROS unremarkable unless otherwise noted. PMHx: Noted as above PSHx: Noted as above Meds: As per SEP, reviewed and confirmed All: aloe vera, sulfa- rash SHx: Used to smoke 5 cigarettes per day x 2-3 years quit 2000, denied ETOH, or illicit drug use FHx: Mother of colon CA 60s, father bone cancer 80s, sister and brother of MIs PMD/ ID: Dr. Nichole Urology: Mouded Cardio: George Review of Systems - Constitutional Constitutional: Fever. absent: Chills - EENT Nose/Mouth/Throat: Facial Pain (RIGHT SIDE OF THE NECKWITH PAROTID GLAND SWELLING AND TENDERNESS.). absent: Bleeding Gums, Dental Pain, Dysphagia, Mouth Lesions, Odynophagia, Sore Throat - Cardiovascular Cardiovascular: absent: Chest Pain, Dyspnea - Respiratory Respiratory: absent: Cough, Excessive Mucous Production - Gastrointestinal Gastrointestinal: absent: Abdominal Pain, Diarrhea, Nausea, Vomiting - Genitourinary Genitourinary: Hx /Renal Surgery (HISTORY OF BILATERAL URETERAL STENTS EXTERNALLY). absent: Freq UTI - Neurological Neurological: absent: Headaches - Psychiatric Psychiatric: Anxiety, Depression - Hematologic/Lymphatic Hematologic: As Per HPI, Lymphadenopathy (RIGHT PAROTID GLAND SWELLING AND MILD SUBMANDIBULAR LYMPHADENOPATHY.) Past Patient History - Infectious Disease Hx of Infectious Diseases: None - Past Medical History & Family History Past Medical History?: Yes - Past Social History Smoking Status: Never Smoked - CARDIAC Hx Congestive Heart Failure: Yes Hx Hypercholesterolemia: Yes Hx Hypertension: Yes Hx Pacemaker: No Hx Peripheral Edema: Yes - PULMONARY Hx Asthma: Yes Hx Chronic Obstructive Pulmonary Disease (COPD): Yes - NEUROLOGICAL Hx Neurological Disorder: No Hx Paralysis: No - HEENT Hx HEENT Problems: Yes Hx Cataracts: Yes (BILATERAL) - RENAL Hx Chronic Kidney Disease: Yes Hx Kidney Stones: No - ENDOCRINE/METABOLIC Hx Endocrine Disorders: No - HEMATOLOGICAL/ONCOLOGICAL Hx Anemia: Yes Hx Human Immunodeficiency Virus (HIV): Yes - INTEGUMENTARY Hx Dermatological Problems: No - MUSCULOSKELETAL/RHEUMATOLOGICAL Hx Falls: No - GASTROINTESTINAL Hx Gastritis: Yes Hx Pancreatitis: Yes - GENITOURINARY/GYNECOLOGICAL Hx Cervical Cancer: Yes Other/Comment: Bilateral NEPHROSTOMY TUBES - PSYCHIATRIC Hx Substance Use: No - SURGICAL HISTORY Hx Cholecystectomy: Yes Other/Comment: Nephrostomy tube insertion - ANESTHESIA Hx Anesthesia: Yes Hx Anesthesia Reactions: No Hx Malignant Hyperthermia: No Meds Allergies/Adverse Reactions: Allergies Allergy/AdvReac Type Severity Reaction Status Date / Time aloe vera Allergy Severe ITCHING Verified 08/21/18 19:24 Sulfa (Sulfonamide Allergy Severe ITCHING Verified 08/21/18 19:24 Antibiotics) sulfamethoxazole Allergy Severe ITCHING Verified 08/21/18 19:24 [From Bactrim] - Medications Medications: Current Medications Albuterol (Ventolin Hfa 90 Mcg/Actuation (8 G)) 2 puff IH Q4 PRN PRN Reason: Shortness of Breath Aspirin (Ecotrin) 81 mg PO HS [facility] Darunavir (Prezista) 800 mg PO DAILY [facility]; Protocol Last Admin: 10/11/18 12:36 Dose: 800 mg Dolutegravir Sodium (Tivicay) 50 mg PO DAILY [facility]; Protocol Last Admin: 10/11/18 12:37 Dose: 50 mg Enoxaparin Sodium (Lovenox) 40 mg SC DAILY [facility] Last Admin: 10/11/18 09:04 Dose: 40 mg Escitalopram Oxalate (Lexapro) 5 mg PO DAILY [facility] Last Admin: 10/11/18 12:37 Dose: 5 mg Famciclovir (Famvir) 500 mg PO DAILY [facility]; Protocol Last Admin: 10/11/18 12:36 Dose: 500 mg Piperacillin Sod/Tazobactam Sod (Zosyn 2.25 Gm Iv Premix) 2.25 gm in 50 mls @ 100 mls/hr IVPB Q6H [facility]; Protocol Losartan Potassium (Cozaar) 100 mg PO DAILY [facility] Last Admin: 10/11/18 12:36 Dose: 100 mg Metoprolol Tartrate (Lopressor) 100 mg PO HS [facility] Montelukast Sodium (Singulair) 10 mg PO QPM [facility] Morphine Sulfate (Morphine) 1 mg IVP Q4 PRN PRN Reason: Pain, severe (8-10) Last Admin: 10/11/18 11:47 Dose: 1 mg Ondansetron HCl (Zofran Inj) 4 mg IVP Q6H PRN PRN Reason: Nausea/Vomiting Last Admin: 10/11/18 12:36 Dose: 4 mg Oxycodone/Acetaminophen (Percocet 5/325 Mg Tab) 1 tab PO Q4H PRN PRN Reason: Pain, moderate (4-7) Stop: 10/13/18 20:11 Last Admin: 10/11/18 07:42 Dose: 1 tab Ritonavir (Norvir) 100 mg PO DAILY [facility]; Protocol Last Admin: 10/11/18 12:36 Dose: 100 mg Physical Exam - Constitutional Appears: No Acute Distress - Eye Exam Eye Exam: EOMI, PERRL - ENT Exam ENT Exam: Mucous Membranes Moist - Neck Exam Neck exam: Positive for: Normal Inspection. Negative for: Thyromegaly - Respiratory Exam Respiratory Exam: Clear to Auscultation Bilateral - Cardiovascular Exam Cardiovascular Exam: REGULAR RHYTHM, +S1, +S2 - GI/Abdominal Exam GI & Abdominal Exam: Normal Bowel Sounds, Soft (COLOSTOMY IN PLACE WITH FECES) - Extremities Exam Extremities exam: Positive for: normal capillary refill, pedal pulses present. Negative for: calf tenderness, pedal edema - Neurological Exam Neurological exam: Alert, CN II-XII Intact (SHE), Oriented x3, Reflexes Normal (NAIL) - Psychiatric Exam Psychiatric exam: Normal Mood - Skin Skin Exam: Normal Color, Warm Results - Vital Signs Recent Vital Signs: Last Vital Signs Temp 98.1 F 10/11/18 08:00 Pulse 100 H 10/11/18 08:00 Resp 20 10/11/18 08:00 BP 127/79 10/11/18 08:00 Pulse Ox 95 10/11/18 08:00 - Labs Result Diagrams: 10/11/18 08:03 10/11/18 08:03 Labs: Laboratory Results - last 24 hr 10/10/18 10/10/18 10/10/18 16:38 16:38 19:40 WBC 15.6 H D RBC 4.21 Hgb 10.9 L Hct 34.8 MCV 82.5 MCH 25.9 L MCHC 31.4 L RDW 18.4 H Plt Count 195 MPV 9.4 Neut % (Auto) 87.4 H Lymph % (Auto) 7.1 L Jones % (Auto) 5.3 Eos % (Auto) 0.1 Baso % (Auto) 0.1 Neut # (Auto) 13.6 H Lymph # (Auto) 1.1 Jones # (Auto) 0.8 Eos # (Auto) 0.0 Baso # (Auto) 0.0 Neutrophils % (Manual) 78 H Band Neutrophils % 6 H Lymphocytes % (Manual) 11 L Monocytes % (Manual) 5 Platelet Estimate Normal Large Platelets Present Polychromasia Hypochromasia (manual) Anisocytosis (manual) Microcytosis (manual) Slight pO2 23 L VBG pH 7.26 L VBG pCO2 47 VBG HCO3 18.3 VBG Total CO2 22.5 VBG O2 Sat (Calc) 41.0 VBG Base Excess -6.1 L VBG Potassium 4.2 Glucose 95 Lactate 2.1 FiO2 21.0 Sodium 136 142.0 Potassium 4.3 Chloride 104 111.0 H Carbon Dioxide 23 Anion Gap 13 BUN 18 H Creatinine 1.5 H Est GFR ( Amer) 43 Est GFR (Non-Af Amer) 35 Random Glucose 116 H D Hemoglobin A1c Calcium 9.5 Phosphorus Magnesium Total Bilirubin 0.6 AST 31 ALT 16 Alkaline Phosphatase 84 Total Protein 7.5 Albumin 4.0 Globulin 3.5 Albumin/Globulin Ratio 1.2 Venous Blood Potassium 4.2 10/11/18 10/11/18 10/11/18 08:03 08:03 08:03 WBC 22.3 H RBC 3.69 L Hgb 9.9 L Hct 30.8 L MCV 83.6 MCH 26.9 L MCHC 32.2 L RDW 18.2 H Plt Count 174 MPV 9.3 Neut % (Auto) 89.8 H Lymph % (Auto) 4.5 L Jones % (Auto) 5.4 Eos % (Auto) 0.1 Baso % (Auto) 0.2 Neut # (Auto) 20.0 H Lymph # (Auto) 1.0 Jones # (Auto) 1.2 H Eos # (Auto) 0.0 Baso # (Auto) 0.0 Neutrophils % (Manual) 85 H Band Neutrophils % 3 H Lymphocytes % (Manual) 10 L Monocytes % (Manual) 2 Platelet Estimate Normal Large Platelets Polychromasia Slight Hypochromasia (manual) Slight Anisocytosis (manual) Slight Microcytosis (manual) pO2 VBG pH VBG pCO2 VBG HCO3 VBG Total CO2 VBG O2 Sat (Calc) VBG Base Excess VBG Potassium Glucose Lactate FiO2 Sodium 137 Potassium 4.6 Chloride 106 Carbon Dioxide 25 Anion Gap 10 BUN 18 H Creatinine 1.5 H Est GFR ( Amer) 43 Est GFR (Non-Af Amer) 35 Random Glucose 109 H Hemoglobin A1c 5.6 Calcium 8.8 Phosphorus 3.6 Magnesium 1.4 L Total Bilirubin 1.0 AST 33 ALT 35 Alkaline Phosphatase 98 Total Protein 6.5 Albumin 3.5 Globulin 3.0 Albumin/Globulin Ratio 1.2 Venous Blood Potassium - Imaging and Cardiology MAXILLOFACIAL ct SCAN Status: Report reviewed by me Assessment & Plan (1) Gram positive septicemia Assessment and Plan: BLOOD CULTURE 10/10/18 2:2 SETS +VE GP COCCI ? STREPTOCOCCI VS MRSA SOURCE OF SEPSIS -MOST LIKELY MIXED ORAL SULTANA? STAPH STREP, MIXED ORAL AEROBES AND ANAEROBES. AND ENTEROBACTERACIE, DOUBT VIRAL ETIOLOGY. CONTINUE iv ZOSYN , DECREASED DOSE TO 2.25 GM iv PIGGYBACK EVERY 8 HOURLY.10/10/18 ADD iv DAPTOMYCIN 6 MG/KG iv PIGGYBACK Q 36H - 10/11/18. PATIENT HAS RENAL INSUFFICIENCY wILL AVOID NEPHROTOXIC DRUGS. ADD IV fLAGYL 500 MG IVPB EVERY 8 HOURLY FOR ANAEROBIC COVERAGE. 10/11/18. Status: Acute (2) Acute suppurative parotitis Assessment and Plan: PATIENT HAS OBSTRUCTIVE CALCULUS RIGHT PAROTID DUCT. nO DRAINABLE ABSCESS PER MAXILLOFACIAL CT SCAN. CONTINUE iv ANTIBIOTICS ORDERED. PATIENT ASKED TO SUCK ON HARD CANDY PRN. ENT ON BOARD - PER HIS RECOMMENDATIONS. Status: Acute (3) Parotid duct obstruction Assessment and Plan: PATIENT HAS OF 5.3 MM OBSTRUCTIVE CALCULUS RIGHT PAROTID DUCT.. cONTINUE ANTIBIOTICS hARD CANDY TO SUCK WHEN NECESSARY Status: Acute (4) Colostomy in place Status: Chronic (5) HIV disease Assessment and Plan: CONTINUE ARV THERAPY. F/U HIV rna pcr QUANTITATIVE LEVELS. F/U CD4 HELPER CELLS. Status: Chronic (6) History of uterine cancer Status: Chronic (7) PERFECTO (acute kidney injury) Assessment and Plan: PATIENT HAS ACUTE ON CHRONIC RENAL INSUFFICIENCY. wILL AVOID NEPHROTOXIC DRUGS. pATIENT HAS HISTORY OF BILATERAL HYDRONEPHROSIS WITH BILATERAL URETERAL EXTERNAL STENTS. mONITOR KIDNEY FUNCTIONS CLOSELY Status: Acute Priority: High
[2018-10-11] MEDS: Piperacill/Tazo 2.25gm in Dex 2.25 GM/50 ML BAG IVPB SCH ×2 (14:25→20:55)
[2018-10-11 14:44] LABS: PH,URINE 8.5 (5.0-8.0); URINE BILIRUBIN NEGATIVE (NEGATIVE); URINE BLOOD 2+ (NEGATIVE); URINE CLARITY Hazy (Clear); URINE COLOR YELLOW (YELLOW); URINE GLUCOSE (UA) NEGATIVE (Normal); URINE PROTEIN 100 mg/dL (NEGATIVE); URINE UROBILINOGEN 0.2 mg/dL (0.2-1.0)
[2018-10-11 14:45] LABS: URINE LEUKOCYTE ESTERASE 2+ Leu/uL (Negative)
[2018-10-11 15:06] LABS: SQUAMOUS EPITHIAL 3 /hpf (0-5)
[2018-10-11 15:07] LABS: URINE AMORPHOUS SEDIMENT MANY /ul (<OCC); URINE TRIPLE PHOSPHATE CRYSTAL MOD /hpf (<OCC)
[2018-10-11] MEDS: metroNIDAZOLE IV 500 mg/100 ml 500 MG/100 ML BAG IVPB SCH (22:59)
--- NOTE | 2018-10-12 01:26 | CON ---
DATE: 10/11/2018 REQUESTING PHYSICIAN: Lamin Kirby MD REASON FOR CONSULTATION: Parotitis. HISTORY OF PRESENT ILLNESS: This is a 63-year-old female with a four-day history of right facial swelling and pain. The pain is constant, [id number] in intensity on the right. There is also swelling, which is [id number] in intensity on the right, constant. PAST MEDICAL HISTORY: As noted in the chart by me. MEDICATIONS: As noted in the chart by me. PHYSICAL EXAMINATION: HEAD: Atraumatic, normocephalic. FACE: Good facial movements bilaterally, edema of the right parotid with no induration overlying. CONSTITUTIONAL: Well fed, well nourished. COMMUNICATION: Communicates well and appropriately. EXTERNAL NOSE AND EARS: No masses, no lesions, no erythema, no edema. INTERNAL NOSE: Deviated septum. No masses, no lesions, no erythema, no edema. ORAL CAVITY AND OROPHARYNX: There is edema of the duct on the right parotid gland with firmness and pain. No other masses or lesions. LIPS AND GUMS: No masses, no lesions, no erythema, no edema. NECK: Supple. THYROID: No thyromegaly, no goiter. LYMPH NODES: No lymphadenopathy of the neck. LABORATORY DATA: CAT scan was reviewed by me, revealed calculus in the right parotid duct. ASSESSMENT: 1. Parotitis with a stone. 2. Deviated septum. PLAN: Continue IV antibiotics. Recommend steroids. If the patient does not improve with this, the patient needs to have the calculus removed. Liban Van MD MTDJudy
[2018-10-12] MEDS: Piperacill/Tazo 2.25gm in Dex 2.25 GM/50 ML BAG IVPB SCH ×4 (01:54→19:21)
[2018-10-12] MEDS: metroNIDAZOLE IV 500 mg/100 ml 500 MG/100 ML BAG IVPB SCH ×3 (05:44→22:18)
[2018-10-12 07:30] LABS: BASO % 0.2 % (0.0-2.0); HEMOGLOBIN 9.9 g/dL (11.0-16.0); LYMPH # 0.6 K/uL (1.0-4.3); LYMPH % 4.6 % (20.0-40.0); MEAN CELL VOLUME 84.2 fL (81.0-99.0); MEAN CORPUSCULAR HEMOGLOBIN 27.1 pg (27.0-31.0); MEAN CORPUSCULAR HGB CONC 32.2 g/dL (33.0-37.0); MEAN PLATELET VOLUME 9.6 fL (7.2-11.7); MONO # 0.2 K/uL (0.0-0.8); MONO % 1.2 % (0.0-10.0); NEUT # 12.2 K/uL (1.8-7.0); PLATELET COUNT 145 K/uL (130-400); RBC 3.65 Mil/uL (3.80-5.20)
[2018-10-12 07:45] LABS: ALB/GLOB RATIO 1.2 (1.0-2.1); ALBUMIN 3.6 g/dL (3.5-5.0); ALT/SGPT 31 U/L (9-52); AST/SGOT 33 U/L (14-36); BILIRUBIN,DIRECT 0.5 mg/dL (0.0-0.4); BLOOD UREA NITROGEN 18 mg/dL (7-17); CALCIUM 9.3 mg/dl (8.6-10.4); GFR NON-AFRICAN AMERICAN 35
[2018-10-12 08:37] LABS: BANDS 4 % (0-2); LYMPHOCYTE 3 % (20-40); MONOCYTE 3 % (0-10); NEUTROPHIL 90 % (50-75); TOTAL CELLS COUNTED 100
[2018-10-12 08:38] LABS: ANISOCYTOSIS SLIGHT; HYPOCHROMIC SLIGHT; LARGE PLATELETS PRESENT; PLATELET ESTIMATE NORMAL (NORMAL); POIKILOCYTOSIS SLIGHT; TARGET CELLS SLIGHT
[2018-10-12] MEDS: Enoxaparin 40 mg Syringe SC SCH (09:48)
--- NOTE | 2018-10-12 09:49 | CP.PCM.PN ---
Subjective - Date & Time of Evaluation Date of Evaluation: 10/12/18 Time of Evaluation: 09:47 - Subjective Subjective: decreased pain and edema of right face oc/op: decreased edema of duct neck: decreased edema and pain of right parotid gland a/p: parotitis improving ok to discharge home on antibiotic and medrol dose pack f/u Dr. núñez [phone] as outpatient Objective - Vital Signs/Intake and Output Vital Signs (last 24 hours): Temp Pulse Resp BP Pulse Ox 98.8 F 87 20 120/80 95 10/12/18 07:00 10/12/18 07:00 10/12/18 07:00 10/12/18 07:00 10/12/18 07:00 Intake and Output: 10/12/18 10/12/18 06:59 18:59 Intake Total 940 Output Total 1200 Balance -260 - Medications Medications: Current Medications Acetaminophen (Tylenol 325mg Tab) 650 mg PO Q6 PRN PRN Reason: Fever >100.4 F Albuterol (Ventolin Hfa 90 Mcg/Actuation (8 G)) 2 puff IH Q4 PRN PRN Reason: Shortness of Breath Aspirin (Ecotrin) 81 mg PO HS [facility] Last Admin: 10/11/18 21:54 Dose: 81 mg Darunavir (Prezista) 800 mg PO DAILY [facility]; Protocol Last Admin: 10/11/18 12:36 Dose: 800 mg Dolutegravir Sodium (Tivicay) 50 mg PO DAILY [facility]; Protocol Last Admin: 10/11/18 12:37 Dose: 50 mg Enoxaparin Sodium (Lovenox) 40 mg SC DAILY [facility] Last Admin: 10/11/18 09:04 Dose: 40 mg Escitalopram Oxalate (Lexapro) 5 mg PO DAILY [facility] Last Admin: 10/11/18 12:37 Dose: 5 mg Famciclovir (Famvir) 500 mg PO DAILY [facility]; Protocol Last Admin: 10/11/18 12:36 Dose: 500 mg Piperacillin Sod/Tazobactam Sod (Zosyn 2.25 Gm Iv Premix) 2.25 gm in 50 mls @ 100 mls/hr IVPB Q6H [facility]; Protocol Last Admin: 10/12/18 08:12 Dose: 100 mls/hr Daptomycin 440 mg/ Sodium (Chloride) 100 mls @ 100 mls/hr IV Q36H [facility]; Protocol Stop: 10/16/18 15:31 Last Admin: 10/11/18 15:20 Dose: 100 mls/hr Metronidazole (Flagyl) 500 mg in 100 mls @ 100 mls/hr IVPB Q8H [facility]; Protocol Last Admin: 10/12/18 05:44 Dose: 100 mls/hr Losartan Potassium (Cozaar) 100 mg PO DAILY [facility] Last Admin: 10/11/18 12:36 Dose: 100 mg Metoprolol Tartrate (Lopressor) 100 mg PO HS [facility] Last Admin: 10/11/18 21:54 Dose: 100 mg Montelukast Sodium (Singulair) 10 mg PO QPM [facility] Last Admin: 10/11/18 17:09 Dose: 10 mg Morphine Sulfate (Morphine) 2 mg IVP Q4 PRN PRN Reason: Pain, severe (8-10) Last Admin: 10/11/18 19:57 Dose: 2 mg Ondansetron HCl (Zofran Inj) 4 mg IVP Q6H PRN PRN Reason: Nausea/Vomiting Last Admin: 10/11/18 12:36 Dose: 4 mg Oxycodone/Acetaminophen (Percocet 5/325 Mg Tab) 1 tab PO Q4H PRN PRN Reason: Pain, moderate (4-7) Stop: 10/13/18 20:11 Last Admin: 10/11/18 07:42 Dose: 1 tab Ritonavir (Norvir) 100 mg PO DAILY [facility]; Protocol Last Admin: 10/11/18 12:36 Dose: 100 mg - Labs Labs: 10/12/18 07:03 10/12/18 07:03
--- NOTE | 2018-10-12 10:59 | CP.PCM.PN ---
Subjective - Date & Time of Evaluation Date of Evaluation: 10/12/18 Time of Evaluation: 10:59 - Subjective Subjective: CHIEF COMPLAINTS TODAY : AFEBRILE VSS less pain rt face/and parotid swelling SEEN BY ENT/ AND DISCUSSED CASE. ROS. HEENT : N. RT. PAROTID GLAND SWELLING /AND WARMTH Resp : No cough, wheezing ,pleuritic CP ,or hemoptysis Cardio : No anginal CP, PND, orthopnea, palpitation GI : DENIES ABD. PAIN , denies n/v ,diarrhea or GI bleeding . 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 Musculoskel : No joint swelling , Derm : No rash Psych : Normal affect. Ext : No swelling ,calf pain PE. Pt. is alert awake in no distress. V.S As noted in the chart Head ,ear nose,throat and eyes : RT PAROTID GLAND SWELLING LESS PAINAND TENDERNESS RT FACIAL REGION Neck : Supple with normal carotids. Lungs: Clear air entry. Heart : S1 & S2 normal with S4. No murmur. Abd : SOFT , B/L NT IN PLACE, with normal bowel sounds.+VE COLOSTOMY W STOOLS Neuro : Moves all ext. with no localized deficit. Ext : No edema with intact pulses.Non tender calves Derm : No rashes or decubitus ulcer. LABS/RADIOLOGY: BLOOD CULTURE +VE GRAM +VE COCCI IN CHAINS-AEROBIC BOTTLE WBC 13.9 IMPROVING Objective - Vital Signs/Intake and Output Vital Signs (last 24 hours): Temp Pulse Resp BP Pulse Ox 98.8 F 87 20 120/80 95 10/12/18 07:00 10/12/18 07:00 10/12/18 07:00 10/12/18 07:00 10/12/18 07:00 Intake and Output: 10/12/18 10/12/18 06:59 18:59 Intake Total 940 Output Total 1200 Balance -260 - Medications Medications: Current Medications Acetaminophen (Tylenol 325mg Tab) 650 mg PO Q6 PRN PRN Reason: Fever >100.4 F Albuterol (Ventolin Hfa 90 Mcg/Actuation (8 G)) 2 puff IH Q4 PRN PRN Reason: Shortness of Breath Aspirin (Ecotrin) 81 mg PO HS [facility] Last Admin: 10/11/18 21:54 Dose: 81 mg Darunavir (Prezista) 800 mg PO DAILY [facility]; Protocol Last Admin: 10/12/18 09:47 Dose: 800 mg Dolutegravir Sodium (Tivicay) 50 mg PO DAILY [facility]; Protocol Last Admin: 10/12/18 09:47 Dose: 50 mg Enoxaparin Sodium (Lovenox) 40 mg SC DAILY [facility] Last Admin: 10/12/18 09:48 Dose: 40 mg Escitalopram Oxalate (Lexapro) 5 mg PO DAILY [facility] Last Admin: 10/12/18 09:47 Dose: 5 mg Famciclovir (Famvir) 500 mg PO DAILY [facility]; Protocol Last Admin: 10/12/18 09:47 Dose: 500 mg Piperacillin Sod/Tazobactam Sod (Zosyn 2.25 Gm Iv Premix) 2.25 gm in 50 mls @ 100 mls/hr IVPB Q6H [facility]; Protocol Last Admin: 10/12/18 08:12 Dose: 100 mls/hr Daptomycin 440 mg/ Sodium (Chloride) 100 mls @ 100 mls/hr IV Q36H [facility]; Protocol Stop: 10/16/18 15:31 Last Admin: 10/11/18 15:20 Dose: 100 mls/hr Metronidazole (Flagyl) 500 mg in 100 mls @ 100 mls/hr IVPB Q8H [facility]; Protocol Last Admin: 10/12/18 05:44 Dose: 100 mls/hr Losartan Potassium (Cozaar) 100 mg PO DAILY [facility] Last Admin: 10/12/18 09:46 Dose: 100 mg Metoprolol Tartrate (Lopressor) 100 mg PO HS [facility] Last Admin: 10/11/18 21:54 Dose: 100 mg Montelukast Sodium (Singulair) 10 mg PO QPM [facility] Last Admin: 10/11/18 17:09 Dose: 10 mg Morphine Sulfate (Morphine) 2 mg IVP Q4 PRN PRN Reason: Pain, severe (8-10) Last Admin: 10/11/18 19:57 Dose: 2 mg Ondansetron HCl (Zofran Inj) 4 mg IVP Q6H PRN PRN Reason: Nausea/Vomiting Last Admin: 10/11/18 12:36 Dose: 4 mg Oxycodone/Acetaminophen (Percocet 5/325 Mg Tab) 1 tab PO Q4H PRN PRN Reason: Pain, moderate (4-7) Stop: 10/13/18 20:11 Last Admin: 10/11/18 07:42 Dose: 1 tab Ritonavir (Norvir) 100 mg PO DAILY [facility]; Protocol Last Admin: 10/12/18 09:47 Dose: 100 mg - Labs Labs: 10/12/18 07:03 10/12/18 07:03 Assessment and Plan (1) Gram positive septicemia Status: Acute (2) Acute suppurative parotitis Status: Acute (3) Parotid duct obstruction Status: Acute (4) Colostomy in place Status: Chronic (5) HIV disease Status: Chronic (6) History of uterine cancer Status: Chronic (7) PERFECOT (acute kidney injury) Status: Acute - Assessment and Plan (Free Text) Plan: BLOOD CULTURE 10/10/18 2:2 SETS +VE GP COCCI ? STREPTOCOCCI VS MRSA SOURCE OF SEPSIS -MOST LIKELY MIXED ORAL SULTANA? STAPH STREP, MIXED ORAL AEROBES AND ANAEROBES. AND ENTEROBACTERACIE, DOUBT VIRAL ETIOLOGY. CONTINUE iv ZOSYN , DECREASED DOSE TO 2.25 GM iv PIGGYBACK EVERY 8 HOURLY.10/10/18 ADD iv DAPTOMYCIN 6 MG/KG iv PIGGYBACK Q 36H - 10/11/18. PATIENT HAS RENAL INSUFFICIENCY wILL AVOID NEPHROTOXIC DRUGS. CONTINUE IV fLAGYL 500 MG IVPB EVERY 8 HOURLY FOR ANAEROBIC COVERAGE. 10/11/18. F/U BLOOD CULTURES TO ADJUST ABX. PT IS IMMUNOSUPPRESSED AND RISK OF DISSEMINATION OF INFECTION . NEED TO CLEAR BACTEREMIA BEFORE DISCHARGE. REPEAT BLOOD CULTURES IN AM CASE DISCUSSED W ENT.- SHORT COURSE OF STEROIDS PER ENT/ REFERRED OPD FOR EXTRACTION OF WANDA DUCT STONE .
--- NOTE | 2018-10-12 11:40 | CP.PCM.PN ---
"Subjective - Date & Time of Evaluation Date of Evaluation: 10/12/18 Time of Evaluation: 10:05 - Subjective Subjective: Patient seen and examined at bedside. No overnight events reported. Her Swelling and facial pain has reduced. She Denies any fever, chills, CP, SOB, abdominal pain, n/v changes in bowel habits or urinary symptoms Objective - Vital Signs/Intake and Output Vital Signs (last 24 hours): Temp Pulse Resp BP Pulse Ox 98.8 F 87 20 120/80 95 10/12/18 07:00 10/12/18 07:00 10/12/18 07:00 10/12/18 07:00 10/12/18 07:00 Intake and Output: 10/12/18 10/12/18 06:59 18:59 Intake Total 940 Output Total 1200 Balance -260 - Medications Medications: Current Medications Acetaminophen (Tylenol 325mg Tab) 650 mg PO Q6 PRN PRN Reason: Fever >100.4 F Albuterol (Ventolin Hfa 90 Mcg/Actuation (8 G)) 2 puff IH Q4 PRN PRN Reason: Shortness of Breath Aspirin (Ecotrin) 81 mg PO HS [facility] Last Admin: 10/11/18 21:54 Dose: 81 mg Darunavir (Prezista) 800 mg PO DAILY [facility]; Protocol Last Admin: 10/12/18 09:47 Dose: 800 mg Dolutegravir Sodium (Tivicay) 50 mg PO DAILY [facility]; Protocol Last Admin: 10/12/18 09:47 Dose: 50 mg Enoxaparin Sodium (Lovenox) 40 mg SC DAILY [facility] Last Admin: 10/12/18 09:48 Dose: 40 mg Escitalopram Oxalate (Lexapro) 5 mg PO DAILY [facility] Last Admin: 10/12/18 09:47 Dose: 5 mg Famciclovir (Famvir) 500 mg PO DAILY [facility]; Protocol Last Admin: 10/12/18 09:47 Dose: 500 mg Piperacillin Sod/Tazobactam Sod (Zosyn 2.25 Gm Iv Premix) 2.25 gm in 50 mls @ 100 mls/hr IVPB Q6H [facility]; Protocol Last Admin: 10/12/18 08:12 Dose: 100 mls/hr Daptomycin 440 mg/ Sodium (Chloride) 100 mls @ 100 mls/hr IV Q36H [facility]; Protocol Stop: 10/16/18 15:31 Last Admin: 10/11/18 15:20 Dose: 100 mls/hr Metronidazole (Flagyl) 500 mg in 100 mls @ 100 mls/hr IVPB Q8H [facility]; Protocol Last Admin: 10/12/18 05:44 Dose: 100 mls/hr Losartan Potassium (Cozaar) 100 mg PO DAILY [facility] Last Admin: 10/12/18 09:46 Dose: 100 mg Metoprolol Tartrate (Lopressor) 100 mg PO HS [facility] Last Admin: 10/11/18 21:54 Dose: 100 mg Montelukast Sodium (Singulair) 10 mg PO QPM [facility] Last Admin: 10/11/18 17:09 Dose: 10 mg Morphine Sulfate (Morphine) 2 mg IVP Q4 PRN PRN Reason: Pain, severe (8-10) Last Admin: 10/11/18 19:57 Dose: 2 mg Ondansetron HCl (Zofran Inj) 4 mg IVP Q6H PRN PRN Reason: Nausea/Vomiting Last Admin: 10/11/18 12:36 Dose: 4 mg Oxycodone/Acetaminophen (Percocet 5/325 Mg Tab) 1 tab PO Q4H PRN PRN Reason: Pain, moderate (4-7) Stop: 10/13/18 20:11 Last Admin: 10/11/18 07:42 Dose: 1 tab Ritonavir (Norvir) 100 mg PO DAILY [facility]; Protocol Last Admin: 10/12/18 09:47 Dose: 100 mg - Labs Labs: 10/12/18 07:03 10/12/18 07:03 - Additional Findings Additional findings: - Constitutional Appears: Well, Non-toxic, No Acute Distress - Head Exam Additional comments: Right Side Facial Swelling (Improved) - Eye Exam Eye Exam: EOMI, Normal appearance - ENT Exam ENT Exam: Mucous Membranes Moist - Respiratory Exam Respiratory Exam: Clear to Ausculation Bilateral, NORMAL BREATHING PATTERN. absent: Accessory Muscle Use, Rales - Cardiovascular Exam Cardiovascular Exam: RRR, +S1, +S2. absent: JVD - GI/Abdominal Exam GI & Abdominal Exam: Soft. absent: Tenderness - Extremities Exam Extremities Exam: Normal Capillary Refill. absent: Pedal Edema - Neurological Exam Neurological Exam: Alert, Awake, Oriented x3 - Psychiatric Exam Psychiatric exam: Normal Affect, Normal Mood - Skin Skin Exam: Dry, Intact, Normal Color, Warm Assessment and Plan - Assessment and Plan (Free Text) Assessment: 63 year old female with a PMHx of Cervical CA (Treated with Chemo & Radiation in 2000), Osteoporosis, Pancreatitis, Peripheral Edema, CKD, Hyperlipidemia, Anxiety, Arthritis, Asthma, and CHF, HIV and HTN who who was sent by Oncologist for evaluation of right sided facial swelling. CT scan significant for stone in parotid duct and enlarged right parotid gland. Patient admitted for evaluation and treatment parotitis 2/2 to Sialolithiasis. Hospital course complicated with Gram + Bacteremia. Plan: Parotitis/Sialothiaisis Maxillofacial CT (Admission): There is an obstructing calculus within the distribution of right parotid duct (Stensen's duct). The right parotid gland is enlarged and heterogeneous with infiltration and presumed amorphous areas of fluid however no discrete drainable abscess collections identified. There are also infiltration changes in the surrounding subcutaneous fat. Consults: ENT (Dr. Van), Recs Appreciated Patient may be DC'd on PO Antibiotics and a SoluMedrol Taper. Labs: CMV | COXSACKI A/B | EBV | HIV viral load | SS-A/SS-B - F/U Mgmt: Hydration Warm Compress Hard Candy. Morphine 2 Q6H PRN/Percocet 1tab Q4H PRN for pain Zosyn 2.25mg Q6H [facility] | Daptomycin 440mg Q36 | Metro 500 Q8H. Gram Positive Bacteremia Blood Culture POSITIVE x 2 for Gram + Cocci Urine Culture NEGATIVE Consults: ID(Dr. Romeo), Recs Appreciated Mgmt: Zosyn 2.25mg Q6H [facility] | Daptomycin 440mg Q36 | HTN (Chronic) Mgmt: Cont. Home Medications Losartan 100mg PO Daily Metoprolol 100mg PO Daily ASA HIV (Chronic) Consults: ID(Dr. Romeo), Recs Appreciated Mgmt: Cont. Home Meds PRezista, Tivicay, Norvir, Famvir Asthma (Chronic) Mgmt: Cont. Home Meds Singulair 10mg PO HS Albuterol PRN Depression/Anxiety Mgmt: Cont. Home MEds Lexapro 5mg Daily Proph Lovenox 40 Dispo: Will follow up with ID regarding length of Antibiotic treatment. Patient seen and discussed with Attending (Dr. Oziel Murrieta, PGY-2"
[2018-10-13] MEDS: Piperacill/Tazo 2.25gm in Dex 2.25 GM/50 ML BAG IVPB SCH ×4 (01:35→20:46)
[2018-10-13] MEDS: metroNIDAZOLE IV 500 mg/100 ml 500 MG/100 ML BAG IVPB SCH ×3 (06:08→21:51)
[2018-10-13 07:38] LABS: BASO % 0.1 % (0.0-2.0); HEMOGLOBIN 9.4 g/dL (11.0-16.0); LYMPH # 1.3 K/uL (1.0-4.3); LYMPH % 9.9 % (20.0-40.0); MEAN CELL VOLUME 83.2 fL (81.0-99.0); MEAN CORPUSCULAR HEMOGLOBIN 27.2 pg (27.0-31.0); MEAN CORPUSCULAR HGB CONC 32.7 g/dL (33.0-37.0); MEAN PLATELET VOLUME 9.8 fL (7.2-11.7); MONO # 0.4 K/uL (0.0-0.8); MONO % 3.3 % (0.0-10.0); NEUT # 11.5 K/uL (1.8-7.0); NEUT % 86.7 % (50.0-75.0); PLATELET COUNT 169 K/uL (130-400); RBC 3.45 Mil/uL (3.80-5.20); RED CELL DISTRIBUTION WIDTH 18.3 % (11.5-14.5); WHITE BLOOD COUNT 13.2 K/uL (4.8-10.8)
[2018-10-13 07:41] LABS: ALB/GLOB RATIO 1.2 (1.0-2.1); ALBUMIN 3.5 g/dL (3.5-5.0); CALCIUM 9.1 mg/dl (8.6-10.4)
[2018-10-13] MEDS: MethylPREDNISolone 40 mg Vial IV SCH (09:25)
[2018-10-13] MEDS: Enoxaparin 40 mg Syringe SC SCH (09:28)
[2018-10-13 10:59] LABS: LYMPHOCYTE 6 % (20-40); MONOCYTE 4 % (0-10); NEUTROPHIL 90 % (50-75); PLATELET ESTIMATE NORMAL (NORMAL); TOTAL CELLS COUNTED 100
[2018-10-13 11:00] LABS: ANISOCYTOSIS MODERATE
[2018-10-13 11:01] LABS: HYPOCHROMIC SLIGHT
[2018-10-13 11:02] LABS: POLYCHROMIC SLIGHT
[2018-10-13 11:03] LABS: LARGE PLATELETS PRESENT
[2018-10-13 11:04] LABS: TOXIC GRANULATION PRESENT
[2018-10-13 11:05] LABS: OVALOCYTES SLIGHT; POIKILOCYTOSIS SLIGHT; SCHISTOCYTES SLIGHT
[2018-10-13 18:07] LABS: % CD4 (T HELPER CELL) 12 Percent (30-61); % CD8 (SUPPRESSOR T CELL) 29 Percent (12-42); ABSOLUTE CD4 CELLS 78 Cells/mcL (490-1740); ABSOLUTE CD8 CELLS 198 Cells/mcL (180-1170); ABSOLUTE LYMPHOCYTES 674 Cells/mcL (850-3900); HELPER/SUPPRESSOR RATIO 0.39 Ratio (0.86-5.00)
--- NOTE | 2018-10-13 23:19 | CP.PCM.PN ---
Subjective - Date & Time of Evaluation Date of Evaluation: 10/13/18 Time of Evaluation: 23:19 - Subjective Subjective: CHIEF COMPLAINTS TODAY : AFEBRILE VSS less pain rt face/and parotid swelling BLOOD CULTURE 2:2 SETS +VE STREPT.INTERMEDIUS/ MILLERRI ROS. HEENT : N. RT. PAROTID GLAND SWELLING /AND WARMTH Resp : No cough, wheezing ,pleuritic CP ,or hemoptysis Cardio : No anginal CP, PND, orthopnea, palpitation GI : DENIES ABD. PAIN , denies n/v ,diarrhea or GI bleeding . 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 Musculoskel : No joint swelling , Derm : No rash Psych : Normal affect. Ext : No swelling ,calf pain PE. Pt. is alert awake in no distress. V.S As noted in the chart Head ,ear nose,throat and eyes : RT PAROTID GLAND SWELLING IMPROVING LESS PAINAND TENDERNESS RT FACIAL REGION Neck : Supple with normal carotids. Lungs: Clear air entry. Heart : S1 & S2 normal with S4. No murmur. Abd : SOFT , B/L NT IN PLACE, with normal bowel sounds.+VE COLOSTOMY W STOOLS Neuro : Moves all ext. with no localized deficit. Ext : No edema with intact pulses.Non tender calves Derm : No rashes or decubitus ulcer. LABS/RADIOLOGY: BLOOD CULTURE 2:2 SETS +VE STREPT.INTERMEDIUS/ MILLERRI WBC 13.9 IMPROVING VL - HIGH CD4 HELPER CELLS 78/ML Objective - Vital Signs/Intake and Output Vital Signs (last 24 hours): Temp Pulse Resp BP Pulse Ox 98.3 F 77 20 129/78 97 10/13/18 15:30 10/13/18 15:30 10/13/18 15:30 10/13/18 15:30 10/13/18 15:30 Intake and Output: 10/13/18 10/14/18 18:59 06:59 Intake Total 550 Output Total 650 Balance -100 - Medications Medications: Current Medications Acetaminophen (Tylenol 325mg Tab) 650 mg PO Q6 PRN PRN Reason: Fever >100.4 F Albuterol (Ventolin Hfa 90 Mcg/Actuation (8 G)) 2 puff IH Q4 PRN PRN Reason: Shortness of Breath Aspirin (Ecotrin) 81 mg PO HS [facility] Last Admin: 10/13/18 21:51 Dose: 81 mg Darunavir (Prezista) 800 mg PO DAILY [facility]; Protocol Last Admin: 10/13/18 09:29 Dose: 800 mg Docusate Sodium (Colace) 100 mg PO BID [facility] Last Admin: 10/13/18 17:23 Dose: Not Given Dolutegravir Sodium (Tivicay) 50 mg PO DAILY [facility]; Protocol Last Admin: 10/13/18 09:29 Dose: 50 mg Enoxaparin Sodium (Lovenox) 40 mg SC DAILY [facility] Last Admin: 10/13/18 09:28 Dose: 40 mg Escitalopram Oxalate (Lexapro) 5 mg PO DAILY [facility] Last Admin: 10/13/18 09:29 Dose: 5 mg Famciclovir (Famvir) 500 mg PO DAILY [facility]; Protocol Last Admin: 10/13/18 09:30 Dose: 500 mg Piperacillin Sod/Tazobactam Sod (Zosyn 2.25 Gm Iv Premix) 2.25 gm in 50 mls @ 100 mls/hr IVPB Q6H [facility]; Protocol Last Admin: 10/13/18 20:46 Dose: 100 mls/hr Daptomycin 440 mg/ Sodium (Chloride) 100 mls @ 100 mls/hr IV Q36H [facility]; Protocol Stop: 10/16/18 15:31 Last Admin: 10/13/18 03:01 Dose: 100 mls/hr Metronidazole (Flagyl) 500 mg in 100 mls @ 100 mls/hr IVPB Q8H [facility]; Protocol Last Admin: 10/13/18 21:51 Dose: 100 mls/hr Losartan Potassium (Cozaar) 100 mg PO DAILY [facility] Last Admin: 10/13/18 09:28 Dose: 100 mg Methylprednisolone (Solu-Medrol) 40 mg IV Q24H [facility] Stop: 10/16/18 10:01 Last Admin: 10/13/18 09:25 Dose: 40 mg Metoprolol Tartrate (Lopressor) 100 mg PO HS [facility] Last Admin: 10/13/18 21:51 Dose: 100 mg Montelukast Sodium (Singulair) 10 mg PO QPM [facility] Last Admin: 10/13/18 21:50 Dose: 10 mg Morphine Sulfate (Morphine) 2 mg IVP Q6H PRN PRN Reason: Pain, severe (8-10) Last Admin: 10/12/18 21:02 Dose: 2 mg Ondansetron HCl (Zofran Inj) 4 mg IVP Q6H PRN PRN Reason: Nausea/Vomiting Last Admin: 10/13/18 12:01 Dose: 4 mg Ritonavir (Norvir) 100 mg PO DAILY [facility]; Protocol Last Admin: 10/13/18 09:28 Dose: 100 mg - Labs Labs: 10/13/18 07:04 10/13/18 07:04 Assessment and Plan (1) Gram positive septicemia Status: Acute (2) Acute suppurative parotitis Status: Acute (3) Parotid duct obstruction Status: Acute (4) Colostomy in place Status: Chronic (5) HIV disease Status: Chronic (6) History of uterine cancer Status: Chronic (7) PERFECTO (acute kidney injury) Status: Acute - Assessment and Plan (Free Text) Plan: SOURCE OF SEPSIS -MOST LIKELY MIXED ORAL SULTANA? STAPH STREP, MIXED ORAL AEROBES AND ANAEROBES. CONTINUE iv ZOSYN , DECREASED DOSE TO 2.25 GM iv PIGGYBACK EVERY 8 HOURLY.10/10/18 ADD IV CLEOCIN 450MG IVPB Q 8HRLY. 10/13/18 DC iv DAPTOMYCIN 6 MG/KG iv PIGGYBACK Q 36H - 10/11/18- 10/13/18 DC IV fLAGYL 500 MG IVPB EVERY 8 HOURLY 10/11/18.- 10/13/18 PT IS IMMUNOSUPPRESSED AND RISK OF DISSEMINATION OF INFECTION . NEED TO CLEAR BACTEREMIA BEFORE DISCHARGE. REPEAT BLOOD CULTURES IN AM. PT ON SOLUMEDROL 40MG IV DAILY X 3 DAYS ( DAY 2 ) DISCUSSED WITH ENT. 2D ECHO R/O VEGETATIONS. WILL GET hiv-1 GENOTYPING ALSO HLA B *[id number] FOR ABACAVIR HYPERSENSITIVITY IN CASE NEED TO CHANGE ANTIRETROVIRAL THERAPY BECAUSE OF DEVELOPING RESISTANCE.
[2018-10-14] MEDS: Clindamycin 450 MG in Sodium Chloride 0.9% 50 ML IVPB SCH ×3 (00:17→16:17)
[2018-10-14] MEDS: Piperacill/Tazo 2.25gm in Dex 2.25 GM/50 ML BAG IVPB SCH ×4 (01:15→21:41)
[2018-10-14 08:23] LABS: BASO % 0.1 % (0.0-2.0); HEMOGLOBIN 9.8 g/dL (11.0-16.0); LYMPH # 1.6 K/uL (1.0-4.3); LYMPH % 12.7 % (20.0-40.0); MEAN CELL VOLUME 83.7 fL (81.0-99.0); MEAN CORPUSCULAR HEMOGLOBIN 26.6 pg (27.0-31.0); MEAN CORPUSCULAR HGB CONC 31.8 g/dL (33.0-37.0); MEAN PLATELET VOLUME 9.8 fL (7.2-11.7); MONO # 0.5 K/uL (0.0-0.8); MONO % 3.6 % (0.0-10.0); NEUT # 10.9 K/uL (1.8-7.0); NEUT % 83.6 % (50.0-75.0); NRBC % 0.1 % (0.0-2.0); RBC 3.7 Mil/uL (3.80-5.20); RED CELL DISTRIBUTION WIDTH 18.6 % (11.5-14.5)
[2018-10-14 08:46] LABS: ALB/GLOB RATIO 1.1 (1.0-2.1); ALBUMIN 3.4 g/dL (3.5-5.0); CALCIUM 9.4 mg/dl (8.6-10.4)
[2018-10-14] MEDS: MethylPREDNISolone 40 mg Vial IV SCH (09:39)
[2018-10-14] MEDS: Enoxaparin 40 mg Syringe SC SCH (09:39)
--- NOTE | 2018-10-14 19:30 | HP ---
HISTORY OF PRESENT ILLNESS: A 63-year-old female admitted to the hospital with chief complaint, was here with facial pain and swelling. The patient came to the ER, was found to have parotitis. Patient cervical cancer. The patient came, advised admission. PHYSICAL EXAMINATION: GENERAL: The patient is awake, alert, oriented. VITAL SIGNS: Temperature 98, pulse 90. HEENT: There is swelling of the parotid area. NECK: Supple. CHEST: Symmetrical. HEART: Regular. ABDOMEN: Soft. EXTREMITIES: No edema. ASSESSMENT AND PLAN: The patient suffers from parotitis. The patient is on intravenous antibiotics and supportive care. Lamin Kirby MD
--- NOTE | 2018-10-14 22:28 | CP.PCM.PN ---
Subjective - Date & Time of Evaluation Date of Evaluation: 10/14/18 Time of Evaluation: 22:28 - Subjective Subjective: CHIEF COMPLAINTS TODAY : AFEBRILE VSS less pain rt face/and parotid swelling IMPROVING BLOOD CULTURE 2:2 SETS +VE STREPT.INTERMEDIUS/ MILLERRI abx adjusted.-----> ON IV ZOSYN/IV CLEOCIN PT STATES SHE CANNOT TOLERATE PO ABX . ROS. HEENT : N. RT. PAROTID GLAND SWELLING /AND WARMTH IMPROVING Resp : No cough, wheezing ,pleuritic CP ,or hemoptysis Cardio : No anginal CP, PND, orthopnea, palpitation GI : DENIES ABD. PAIN , denies n/v ,diarrhea or GI bleeding . 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 Musculoskel : No joint swelling , Derm : No rash Psych : Normal affect. Ext : No swelling ,calf pain PE. Pt. is alert awake in no distress. V.S As noted in the chart Head ,ear nose,throat and eyes : RT PAROTID GLAND SWELLING IMPROVING LESS PAINAND TENDERNESS RT FACIAL REGION Neck : Supple with normal carotids. Lungs: Clear air entry. Heart : S1 & S2 normal with S4. No murmur. Abd : SOFT , B/L NT IN PLACE, with normal bowel sounds.+VE COLOSTOMY W STOOLS Neuro : Moves all ext. with no localized deficit. Ext : No edema with intact pulses.Non tender calves Derm : No rashes or decubitus ulcer. LABS/RADIOLOGY: BLOOD CULTURE 2:2 SETS +VE STREPT.INTERMEDIUS/ MILLERRI WBC 13.0 IMPROVING VL - HIGH CD4 HELPER CELLS 78/ML Objective - Vital Signs/Intake and Output Vital Signs (last 24 hours): Temp Pulse Resp BP Pulse Ox 98.5 F 70 20 169/93 H 95 10/14/18 16:23 10/14/18 16:23 10/14/18 16:23 10/14/18 21:55 10/14/18 16:23 Intake and Output: 10/14/18 10/15/18 18:59 06:59 Intake Total 1480 Output Total 1400 Balance 80 - Medications Medications: Current Medications Acetaminophen (Tylenol 325mg Tab) 650 mg PO Q6 PRN PRN Reason: Fever >100.4 F Albuterol (Ventolin Hfa 90 Mcg/Actuation (8 G)) 2 puff IH Q4 PRN PRN Reason: Shortness of Breath Aspirin (Ecotrin) 81 mg PO HS [facility] Last Admin: 10/14/18 21:51 Dose: 81 mg Darunavir (Prezista) 800 mg PO DAILY [facility]; Protocol Last Admin: 10/14/18 09:40 Dose: 800 mg Docusate Sodium (Colace) 100 mg PO BID [facility] Last Admin: 10/14/18 21:51 Dose: Not Given Dolutegravir Sodium (Tivicay) 50 mg PO DAILY [facility]; Protocol Last Admin: 10/14/18 09:40 Dose: 50 mg Enoxaparin Sodium (Lovenox) 40 mg SC DAILY [facility] Last Admin: 10/14/18 09:39 Dose: 40 mg Escitalopram Oxalate (Lexapro) 5 mg PO DAILY [facility] Last Admin: 10/14/18 09:40 Dose: 5 mg Famciclovir (Famvir) 500 mg PO DAILY [facility]; Protocol Last Admin: 10/14/18 09:41 Dose: 500 mg Piperacillin Sod/Tazobactam Sod (Zosyn 2.25 Gm Iv Premix) 2.25 gm in 50 mls @ 100 mls/hr IVPB Q6H [facility]; Protocol Last Admin: 10/14/18 21:41 Dose: 100 mls/hr Clindamycin Phosphate 450 mg/ (Sodium Chloride) 53 mls @ 100 mls/hr IVPB Q8H [facility]; Protocol Last Admin: 10/14/18 16:17 Dose: 100 mls/hr Losartan Potassium (Cozaar) 100 mg PO DAILY [facility] Last Admin: 10/14/18 09:39 Dose: 100 mg Methylprednisolone (Solu-Medrol) 40 mg IV Q24H [facility] Stop: 10/16/18 10:01 Last Admin: 10/14/18 09:39 Dose: 40 mg Metoprolol Tartrate (Lopressor) 100 mg PO HS [facility] Last Admin: 10/14/18 21:52 Dose: 100 mg Montelukast Sodium (Singulair) 10 mg PO QPM [facility] Last Admin: 10/14/18 21:51 Dose: 10 mg Morphine Sulfate (Morphine) 2 mg IVP Q6H PRN PRN Reason: Pain, severe (8-10) Last Admin: 10/12/18 21:02 Dose: 2 mg Ondansetron HCl (Zofran Inj) 4 mg IVP Q6H PRN PRN Reason: Nausea/Vomiting Last Admin: 10/13/18 12:01 Dose: 4 mg Ritonavir (Norvir) 100 mg PO DAILY [facility]; Protocol Last Admin: 10/14/18 09:40 Dose: 100 mg - Labs Labs: 10/14/18 08:15 10/14/18 08:15 Assessment and Plan (1) Gram positive septicemia Status: Acute (2) Acute suppurative parotitis Status: Acute (3) Parotid duct obstruction Status: Acute (4) Colostomy in place Status: Chronic (5) HIV disease Status: Chronic (6) History of uterine cancer Status: Chronic (7) PERFECTO (acute kidney injury) Status: Acute - Assessment and Plan (Free Text) Plan: CONTINUE iv ZOSYN , DECREASED DOSE TO 2.25 GM iv PIGGYBACK EVERY 8 HOURLY.10/10/18 ADD IV CLEOCIN 450MG IVPB Q 8HRLY. 10/13/18 DC iv DAPTOMYCIN 6 MG/KG iv PIGGYBACK Q 36H - 10/11/18- 10/13/18 DC IV fLAGYL 500 MG IVPB EVERY 8 HOURLY 10/11/18.- 10/13/18 PT IS IMMUNOSUPPRESSED AND RISK OF DISSEMINATION OF INFECTION . NEED TO CLEAR BACTEREMIA BEFORE DISCHARGE. REPEAT BLOOD CULTURES IN AM. PT ON SOLUMEDROL 40MG IV DAILY X 3 DAYS ( DAY 2 ) DISCUSSED WITH ENT. 2D ECHO R/O VEGETATIONS. WILL F/U REPEAT BLOOD CULTURES.
[2018-10-15] MEDS: Clindamycin 450 MG in Sodium Chloride 0.9% 50 ML IVPB SCH ×3 (00:02→14:46)
[2018-10-15] MEDS: Piperacill/Tazo 2.25gm in Dex 2.25 GM/50 ML BAG IVPB SCH ×3 (01:15→13:38)
[2018-10-15 08:26] VITALS: BP 173/79; PULSE 61; TEMP 98.7; O2SAT 98
[2018-10-15 08:30] LABS: HEMOGLOBIN 10.9 g/dL (11.0-16.0); LYMPH # 2.2 K/uL (1.0-4.3); LYMPH % 17.1 % (20.0-40.0); MEAN CELL VOLUME 83.6 fL (81.0-99.0); MEAN CORPUSCULAR HEMOGLOBIN 26.9 pg (27.0-31.0); MEAN CORPUSCULAR HGB CONC 32.2 g/dL (33.0-37.0); MEAN PLATELET VOLUME 9.7 fL (7.2-11.7); MONO # 0.6 K/uL (0.0-0.8); NEUT # 9.9 K/uL (1.8-7.0); NEUT % 77.9 % (50.0-75.0); NRBC % 0.1 % (0.0-2.0); RBC 4.07 Mil/uL (3.80-5.20); RED CELL DISTRIBUTION WIDTH 18.9 % (11.5-14.5); WHITE BLOOD COUNT 12.7 K/uL (4.8-10.8)
--- NOTE | 2018-10-15 08:32 | CP.PCM.PN ---
"Subjective - Date & Time of Evaluation Date of Evaluation: 10/15/18 Time of Evaluation: 08:00 - Subjective Subjective: Medicine Progress for Dr. Kirby: Patient was seen and examined at bedside in the AM. Patient states she is feeling well. Her welling and facial pain has significantly reduced.Patient denies fever, chills, nausea and vomiting. Objective - Vital Signs/Intake and Output Vital Signs (last 24 hours): Temp Pulse Resp BP Pulse Ox 98.7 F 61 20 173/79 H 98 10/15/18 08:25 10/15/18 08:25 10/15/18 08:25 10/15/18 08:25 10/15/18 08:25 Intake and Output: 10/15/18 10/15/18 06:59 18:59 Intake Total 1100 Output Total 600 Balance 500 - Medications Medications: Current Medications Acetaminophen (Tylenol 325mg Tab) 650 mg PO Q6 PRN PRN Reason: Fever >100.4 F Albuterol (Ventolin Hfa 90 Mcg/Actuation (8 G)) 2 puff IH Q4 PRN PRN Reason: Shortness of Breath Aspirin (Ecotrin) 81 mg PO HS [facility] Last Admin: 10/14/18 21:51 Dose: 81 mg Darunavir (Prezista) 800 mg PO DAILY [facility]; Protocol Last Admin: 10/14/18 09:40 Dose: 800 mg Docusate Sodium (Colace) 100 mg PO BID [facility] Last Admin: 10/14/18 21:51 Dose: Not Given Dolutegravir Sodium (Tivicay) 50 mg PO DAILY [facility]; Protocol Last Admin: 10/14/18 09:40 Dose: 50 mg Enoxaparin Sodium (Lovenox) 40 mg SC DAILY [facility] Last Admin: 10/14/18 09:39 Dose: 40 mg Escitalopram Oxalate (Lexapro) 5 mg PO DAILY [facility] Last Admin: 10/14/18 09:40 Dose: 5 mg Famciclovir (Famvir) 500 mg PO DAILY [facility]; Protocol Last Admin: 10/14/18 09:41 Dose: 500 mg Piperacillin Sod/Tazobactam Sod (Zosyn 2.25 Gm Iv Premix) 2.25 gm in 50 mls @ 100 mls/hr IVPB Q6H [facility]; Protocol Last Admin: 10/15/18 07:41 Dose: 100 mls/hr Clindamycin Phosphate 450 mg/ (Sodium Chloride) 53 mls @ 100 mls/hr IVPB Q8H [facility]; Protocol Last Admin: 10/15/18 07:02 Dose: 100 mls/hr Losartan Potassium (Cozaar) 100 mg PO DAILY [facility] Last Admin: 10/14/18 09:39 Dose: 100 mg Methylprednisolone (Solu-Medrol) 40 mg IV Q24H [facility] Stop: 10/16/18 10:01 Last Admin: 10/14/18 09:39 Dose: 40 mg Metoprolol Tartrate (Lopressor) 100 mg PO HS [facility] Last Admin: 10/14/18 21:52 Dose: 100 mg Montelukast Sodium (Singulair) 10 mg PO QPM [facility] Last Admin: 10/14/18 21:51 Dose: 10 mg Morphine Sulfate (Morphine) 2 mg IVP Q6H PRN PRN Reason: Pain, severe (8-10) Last Admin: 10/12/18 21:02 Dose: 2 mg Ondansetron HCl (Zofran Inj) 4 mg IVP Q6H PRN PRN Reason: Nausea/Vomiting Last Admin: 10/15/18 07:15 Dose: 4 mg Ritonavir (Norvir) 100 mg PO DAILY [facility]; Protocol Last Admin: 10/14/18 09:40 Dose: 100 mg - Labs Labs: 10/14/18 08:15 10/14/18 08:15 - Constitutional Appears: No Acute Distress - Head Exam Head Exam: ATRAUMATIC, NORMAL INSPECTION - Eye Exam Eye Exam: EOMI, Normal appearance - ENT Exam ENT Exam: Mucous Membranes Moist - Respiratory Exam Respiratory Exam: Clear to Ausculation Bilateral, NORMAL BREATHING PATTERN - Cardiovascular Exam Cardiovascular Exam: REGULAR RHYTHM, +S1, +S2 - GI/Abdominal Exam GI & Abdominal Exam: Soft, Normal Bowel Sounds. absent: Tenderness - Neurological Exam Neurological Exam: Alert, Awake, Oriented x3 Assessment and Plan - Assessment and Plan (Free Text) Assessment: 63 year old female with a PMHx of Cervical CA (Treated with Chemo & Radiation in 2000), Osteoporosis, Pancreatitis, Peripheral Edema, CKD, Hyperlipidemia, Anxiet y, Arthritis, Asthma, and CHF, HIV and HTN who who was sent by Oncologist for evaluation of right sided facial swelling. CT scan significant for stone in parotid duct and enlarged right parotid gland. Patient admitted for evaluation and treatment parotitis 2/2 to Sialolithiasis. Hospital course complicated with Gram + Bacteremia on 10/10/18. Repeat blood culture was completed on 10/14/18 which showed no growth. Plan: Parotitis/Sialothiaisis Maxillofacial CT (Admission): There is an obstructing calculus within the distribution of right parotid duct (Stensen's duct). The right parotid gland is enlarged and heterogeneous with infiltration and presumed amorphous areas of fluid however no discrete drainable abscess collections identified. There are a lso infiltration changes in the surrounding subcutaneous fat. Consults: ENT (Dr. Van), Recs Appreciated Mgmt: Hydration Warm Compress Hard Candy. Morphine 2 Q6H PRN/Percocet 1tab Q4H PRN for pain Zosyn 2.25mg Q6H [facility] | Daptomycin 440mg Q36 --> discontinued Metro 500 Q8H Gram Positive Bacteremia Blood Culture POSITIVE x 2 for Gram + Cocci Urine Culture NEGATIVE Consults: ID(Dr. Romeo), Recs Appreciated Mgmt: Zosyn 2.25mg Q6H [facility] | Daptomycin 440mg Q36 --> discontinued HTN (Chronic) Mgmt: Cont. Home Medications Losartan 100mg PO Daily Metoprolol 100mg PO Daily ASA HIV (Chronic) Consults: ID(Dr. Romeo), Recs Appreciated Mgmt: Cont. Home Meds PRezista, Tivicay, Norvir, Famvir Asthma (Chronic) Mgmt: Cont. Home Meds Singulair 10mg PO HS Albuterol PRN Depression/Anxiety Mgmt: Cont. Home MEds Lexapro 5mg Daily Proph Lovenox 40 Dispo: Patient discharged on Amoxicillin and a Medrol Dose Pack. Patient to follow up with Dr. Van. Patient to return to the ER if symptoms return or worsen. Case discussed with Dr. Mirta Tejada PGY-2"
[2018-10-15 08:52] LABS: ALB/GLOB RATIO 1.2 (1.0-2.1); ALBUMIN 3.8 g/dL (3.5-5.0); CALCIUM 9.6 mg/dl (8.6-10.4)
[2018-10-15] MEDS: Enoxaparin 40 mg Syringe SC SCH (09:39)
[2018-10-15] MEDS: MethylPREDNISolone 40 mg Vial IV SCH (09:39)
--- NOTE | 2018-10-17 12:20 | DS ---
The patient was admitted to the hospital with right facial pain and fever. The patient found to have cellulitis and parotitis. The patient was treated with IV antibiotics. Blood culture initially was positive, repeat was negative. The patient was discharged on p.o. antibiotics. Follow up with ENT. DIAGNOSES: Parotitis, abscess with cellulitis, history of cervical cancer. Lamin Kirby MD
== END 2018-10-15 18:00 | disposition home or self-care (01) | DRG 586 ==
LOC: C.ER 14:29 → C.3T 20:04
PROVIDERS: ADMIT Internal Medicine Pulmonary Disease; ATTEND Internal Medicine Pulmonary Disease
DX: K11.21 Acute sialoadenitis (principal); L03.211 Cellulitis of face; N17.9 Acute kidney failure, unspecified; B20 Human immunodeficiency virus [HIV] disease; K52.0 Gastroenteritis and colitis due to radiation; I13.0 Hypertensive heart and chronic kidney disease with heart failure and stage 1 through stage 4 chronic kidney disease, or unspecified chronic kidney disease; I50.9 Heart failure, unspecified; J44.9 Chronic obstructive pulmonary disease, unspecified; N18.9 Chronic kidney disease, unspecified; K11.5 Sialolithiasis; Y84.2 Radiological procedure and radiotherapy as the cause of abnormal reaction of the patient, or of later complication, without mention of misadventure at the time of the procedure; M81.0 Age-related osteoporosis without current pathological fracture; J34.2 Deviated nasal septum; E78.5 Hyperlipidemia, unspecified; E78.00 Pure hypercholesterolemia, unspecified; B96.89 Other specified bacterial agents as the cause of diseases classified elsewhere; Z85.41 Personal history of malignant neoplasm of cervix uteri; Z90.49 Acquired absence of other specified parts of digestive tract; Z92.21 Personal history of antineoplastic chemotherapy; Z92.3 Personal history of irradiation; Z93.3 Colostomy status; Z95.828 Presence of other vascular implants and grafts; Z80.0 Family history of malignant neoplasm of digestive organs

== ENCOUNTER 2018-11-23 10:15 | Outpatient (CLI) | payer MEDICAID | END 2018-11-23 10:16 | disposition home or self-care (01) | LOC: C.CTH 10:15 ==

== ENCOUNTER 2018-11-28 12:34 | Outpatient (CLI) | payer MEDICAID | END 2018-11-28 12:35 | disposition home or self-care (01) | LOC: C.PAT 12:34 | DX: N13.30 Unspecified hydronephrosis (principal) ==